=== PATIENT | female | born 1970 | race Caucasian/White ===

== ENCOUNTER 2017-06-10 10:59 | Emergency (ER) | payer MEDICAID, SELFPAY ==
[2017-06-10 13:05] VITALS: BP 98/59; PULSE 74; RESP 20; TEMP 36.9; O2SAT 95; BMI 47.8
--- NOTE | 2017-06-10 13:24 | XR_ITS ---
XR ribs RT min 3V w CXR1V Ordering Physician: Payal Peters Patient Age: 46 years: Female HISTORY: ITS.REASON: fell 2 days ago, right lower rib/flank pain right-sided pain TECHNIQUE: Oblique views right ribs along with AP chest above and below diaphragm. COMPARISON : FINDINGS Right ribs are intact with no fracture evident. No acute findings. Lungs well expanded and clear. Old fusion of lower T-spine T10-T9. Clip right upper quadrant from cholecystectomy. The included images a right shoulder reveal no acute findings here. Small dystrophic calcification inferior to the glenoid noted IMPRESSION: Right ribs intact no fracture.
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
[2017-06-10 15:32] VITALS: BP 136/70; PULSE 67; RESP 20; TEMP 36.6; O2SAT 99
== END 2017-06-10 15:33 | disposition home or self-care (01) ==
PROVIDERS: Emergency Provider Nurse Practitioner Family; Family Provider Family Medicine; PCP Family Medicine
DX: S20.211A Contusion of right front wall of thorax, initial encounter (principal); M54.2 Cervicalgia; W01.0XXA Fall on same level from slipping, tripping and stumbling without subsequent striking against object, initial encounter; Y93.89 Activity, other specified; Y92.9 Unspecified place or not applicable; I49.9 Cardiac arrhythmia, unspecified; I10 Essential (primary) hypertension; F17.210 Nicotine dependence, cigarettes, uncomplicated; Z79.890 Hormone replacement therapy; Z79.891 Long term (current) use of opiate analgesic; Z79.899 Other long term (current) drug therapy
CPT/HCPCS: 71101; 99202

== ENCOUNTER → 2017-07-01 13:58 | Outpatient (POV) | payer MEDICAID, SELFPAY ==
[2017-07-01 14:58] VITALS: BP 134/85; PULSE 84; RESP 22; O2SAT 96; BMI 49.4
--- NOTE | 2017-07-01 15:10 | P.CONS_ITS ---
[facility] Pain Management SOAP Note Subjective:: This patient pleasant 46-year-old white female who we are treating for degenerative disc disease of lumbar spine with lumbar radiculopathy symptoms and postlaminectomy syndrome of the thoracic spine. She is doing well on [place] 5 mg 3 times a day. She is also increase her gabapentin to 600 mg 3 times a day. She would like to further increases. We will increase her gabapentin to 800 mg 3 times a day and continue her [place]. Pain medication decreases her pain by at least 75%. She is also more functional. She has had no side effects. We will refill her medication give HER-2 months worth of prescriptions. Kas[place] and urine drug screen are all appropriate. [facility] # [id number]. Objective:: Alert and oriented ?3 in no acute distress. Decreased flexion and extension lumbar spine. Motor strength of the upper and lower extremities is 5/5. There is no sensory deficit. Patient does have a normal gait. Assessment:: Degenerative disc disease of lumbar spine with lumbar radiculopathy symptoms. Post laminectomy syndrome of the thoracic spine. Plan:: We will refill her [place] 5 mg 1 tablet 3 times a day. We will give HER-2 months worth of prescriptions. We will increase her gabapentin to 800 mg 3 times a day.
== END ==
PROVIDERS: Family Provider Family Medicine; PCP Family Medicine; Visit Provider Anesthesiology
DX: M54.16 Radiculopathy, lumbar region (principal)
CPT/HCPCS: 99212

== ENCOUNTER → 2017-08-08 09:18 | Outpatient (POV) | payer MEDICAID, SELFPAY | PROVIDERS: Visit Provider Dentist | DX: Z00.00 Encounter for general adult medical examination without abnormal findings (principal) ==

== ENCOUNTER → 2017-09-16 09:57 | Outpatient (POV) | payer MEDICAID, SELFPAY ==
[2017-09-16 10:36] VITALS: BP 153/91; PULSE 75; RESP 18; O2SAT 99; BMI 49.6
--- NOTE | 2017-09-16 12:50 | HMH.PAINSOAP ---
[facility] Pain Management SOAP Note Subjective:: Patient is a pleasant 47-year-old white female who presents today for follow-up. Patient being medically managed with [place] 5 mg 1 p.o. 3 times daily. Patient is being treated for pain secondary to degenerative disc disease of lumbar spine with lumbar radiculopathy symptoms and postlaminectomy syndrome the thoracic spine. Of late she has had a lot of right SI joint pain. Patient states she would like to have an injection in her right SI to see if this would be beneficial. She states her pain medication does decrease her pain up to 75%. Patient states it makes her more functional. Patient denies any side effects. Patient Kaspar #[id number] reviewed and appropriate. Patient's urine drug screen has been appropriate in the past. Patient rates her pain at 8 out of 10 today primarily over her right SI joint. ROS General: no recent weight change, no fever, no sleep disturbances Respiratory: no cough, no shortness of air, no recurring pulmonary infections Cardiovascular/Peripheral Vascular: No chest pain, No palpitations, no edema, no shortness of breath. Gastrointestinal: no incontinence, normal bowel movements reported Genitourinary: no incontinence Musculoskeletal: Right SI joint pain Psychiatric: normal mood/ affect, Neurological: [denies weakness in extremities], [denies balance issues] Objective:: Physical Exam General: Alert and oriented x3, no acute distress, pleasant and cooperative, [on room air] Lungs: Resps E/U, Symmetrical chest expansion, Eyes: PERRL Musculoskeletal: Flexion and extension of lumbar spine somewhat guarded secondary to pain, deep tendon reflexes normal, strength in upper and lower extremities [5/5], slightly antalgic gait noted, positive Irina's test on the right side, extreme point tenderness over right SI joint Neurological: speech clear, building contractor equal, no gross sensory deficits Assessment:: Sacroiliitis, degenerative disc disease of the lumbar spine with lumbar radiculopathy symptoms, postlaminectomy syndrome of the thoracic spine Plan:: We will refill the patient's Perry 5 mg 1 p.o. 3 times daily we will give HER-2 months worth of prescriptions. She can apple picker her third month in the interim. Patient is also on gabapentin 800 mg 1 p.o. 3 times daily. We will give HER-2 months worth of prescriptions for this as well. Dr. Zelaya has reviewed this chart and agrees with this plan of care. We will also ask insurance approval for right SI joint injection. I believe that this would be beneficial given the patient symptomology. Patient has tried and failed stretching therapy, anti-inflammatories, medications. I will follow-up with this patient after her injection. Patient is not on any anticoagulation therapy. Patient has been prescribed a controlled substance after being counseled on the medication, medication safety, and possible side effects. IRASEMA report has been obtained and reviewed prior to prescription and found to be appropriate. Opioid contract was reviewed and signed by the patient, and that they have agreed to all of the terms set forth by our compliance program. This note was dictated using voice recognition software and may contain errors or omissions
--- NOTE | 2017-09-16 12:53 | P.CONS_ITS ---
[facility] Pain Management SOAP Note Subjective:: Patient is a pleasant 47-year-old white female who presents today for follow- up. Patient being medically managed with [place] 5 mg 1 p.o. 3 times daily. Patient is being treated for pain secondary to degenerative disc disease of lumbar spine with lumbar radiculopathy symptoms and postlaminectomy syndrome the thoracic spine. Of late she has had a lot of right SI joint pain. Patient states she would like to have an injection in her right SI to see if this would be beneficial. She states her pain medication does decrease her pain up to 75% . Patient states it makes her more functional. Patient denies any side effects. Patient [place] #[id number] reviewed and appropriate. Patient's urine drug screen has been appropriate in the past. Patient rates her pain at 8 out of 10 today primarily over her right SI joint. ROS General: no recent weight change, no fever, no sleep disturbances Respiratory: no cough, no shortness of air, no recurring pulmonary infections Cardiovascular/Peripheral Vascular: No chest pain, No palpitations, no edema, no shortness of breath. Gastrointestinal: no incontinence, normal bowel movements reported Genitourinary: no incontinence Musculoskeletal: Right SI joint pain Psychiatric: normal mood/ affect, Neurological: [denies weakness in extremities], [denies balance issues] Objective:: Physical Exam General: Alert and oriented x3, no acute distress, pleasant and cooperative, [ on room air] Lungs: Resps E/U, Symmetrical chest expansion, Eyes: PERRL Musculoskeletal: Flexion and extension of lumbar spine somewhat guarded secondary to pain, deep tendon reflexes normal, strength in upper and lower extremities [5/5], slightly antalgic gait noted, positive Irina's test on the right side, extreme point tenderness over right SI joint Neurological: speech clear, french weaver equal, no gross sensory deficits Assessment:: Sacroiliitis, degenerative disc disease of the lumbar spine with lumbar radiculopathy symptoms, postlaminectomy syndrome of the thoracic spine Plan:: We will refill the patient's Eve[place] 5 mg 1 p.o. 3 times daily we will give HER-2 months worth of prescriptions. She can waste picker her third month in the interim. Patient is also on gabapentin 800 mg 1 p.o. 3 times daily. We will give HER- 2 months worth of prescriptions for this as well. Dr. Zelaya has reviewed this chart and agrees with this plan of care. We will also ask insurance approval for right SI joint injection. I believe that this would be beneficial given the patient symptomology. Patient has tried and failed stretching therapy, anti -inflammatories, medications. I will follow-up with this patient after her injection. Patient is not on any anticoagulation therapy. Patient has been prescribed a controlled substance after being counseled on the medication, medication safety, and possible side effects. IRASEMA report has been obtained and reviewed prior to prescription and found to be appropriate. Opioid contract was reviewed and signed by the patient, and that they have agreed to all of the terms set forth by our compliance program. This note was dictated using voice recognition software and may contain errors or omissions
[2017-09-16 13:32] LABS: Amphetamine/Metha Screen,Urine Negative ng/mL (<1000); Barbiturates Screen,Urine Negative ng/mL (<200); Benzodiazepines Screen,Urine Negative ng/mL (200); Cannabinoid Screen,Urine Negative ng/mL (<50); Cocaine Screen,Urine Negative ng/g (<300); Methadone Screen,Urine Negative ng/mL (<300); Opiate Screen,Urine Positive ng/mL (<300); Phencyclidine Screen,Urine Negative ng/mL (<25)
[2017-09-26 20:16] LABS: Codeine Negative (Cutoff=100); Hydrocodone Positive (.); Hydromorphone Positive (.); Morphine Negative (Cutoff=100)
[2017-09-27 13:31] LABS: Opiates Positive (.)
== END ==
PROVIDERS: Family Provider Family Medicine; Visit Provider Clinical Nurse Specialist Family Health
DX: M54.16 Radiculopathy, lumbar region (principal); M46.1 Sacroiliitis, not elsewhere classified; Z79.891 Long term (current) use of opiate analgesic
CPT/HCPCS: 80305; 80361; 80365; 99212; G0480

== ENCOUNTER 2017-09-24 14:35 | Day surgery (SDC) | payer MEDICAID, SELFPAY ==
[2017-09-24 15:11] VITALS: BP 130/68; PULSE 82; RESP 18; TEMP 36.8; O2SAT 94; BMI 47.4
[2017-09-24 15:44] VITALS: BP 150/101; PULSE 77; RESP 18; O2SAT 98
--- NOTE | 2017-09-24 15:52 | HMH.PMPROC ---
- Procedure Date: 09/24/17 Time: 15:55 Anesthesiologist:: Pam Lovelace APRN Complications:: None Pre-procedure Diagnosis:: Right sacroiliitis Post-procedure Diagnosis:: Same Indications for Procedure:: Patient is a pleasant 47-year-old white female who presents today for an SI joint injection. she has had a lot of right SI joint pain. Patient states she would like to have an injection in her right SI to see if this would be beneficial. Patient rates her pain at 7 out of 10 today primarily over her right SI joint. Physical Exam General: Alert and oriented x3, no acute distress, pleasant and cooperative, [on room air] Lungs: Resps E/U, Symmetrical chest expansion, Eyes: PERRL Musculoskeletal: Flexion and extension of lumbar spine somewhat guarded secondary to pain, deep tendon reflexes normal, strength in upper and lower extremities [5/5], [abnormal gait noted], positive Irina's test on the right side, extreme tenderness over right SI joint Neurological: speech clear, felled seam operator equal, no gross sensory deficits Procedure Details:: Informed consent was obtained and the risks and benefits of the procedure were explained to the patient. Patient was taken to the procedure room. Patient was placed prone on the procedure table. The [right] hip was prepped using ChloraPrep as a cleansing solution. The skin and subcutaneous tissues were anesthetized using lidocaine. Using fluoroscopic guidance I placed a 22-gauge spinal needle into the inferior aspect of the [right] SI joint. After this I injected 5 mL bupivacaine 0.25% and Depo-Medrol 40 mg into the right SI joint. The patient tolerated the procedure well with no complication. Plan and Disposition:: We will follow-up with this patient in 2 weeks and reassess her symptoms at that time. Patient's been instructed to call the office if she has any issues prior to her next appointment. This note was dictated using voice recognition software and may contain errors or omissions
[2017-09-24 15:54] VITALS: BP 150/85; PULSE 85; RESP 18; O2SAT 98
--- NOTE | 2017-09-24 15:57 | P.PCN_ITS ---
- Procedure Date: 09/24/17 Time: 15:55 Anesthesiologist:: Pam Lovelace APRN Complications:: None Pre-procedure Diagnosis:: Right sacroiliitis Post-procedure Diagnosis:: Same Indications for Procedure:: Patient is a pleasant 47-year-old white female who presents today for an SI joint injection. she has had a lot of right SI joint pain. Patient states she would like to have an injection in her right SI to see if this would be beneficial. Patient rates her pain at 7 out of 10 today primarily over her right SI joint. Physical Exam General: Alert and oriented x3, no acute distress, pleasant and cooperative, [ on room air] Lungs: Resps E/U, Symmetrical chest expansion, Eyes: PERRL Musculoskeletal: Flexion and extension of lumbar spine somewhat guarded secondary to pain, deep tendon reflexes normal, strength in upper and lower extremities [5/5], [abnormal gait noted], positive Irina's test on the right side, extreme tenderness over right SI joint Neurological: speech clear, sweetbread trimmer equal, no gross sensory deficits Procedure Details:: Informed consent was obtained and the risks and benefits of the procedure were explained to the patient. Patient was taken to the procedure room. Patient was placed prone on the procedure table. The [right] hip was prepped using ChloraPrep as a cleansing solution. The skin and subcutaneous tissues were anesthetized using lidocaine. Using fluoroscopic guidance I placed a 22-gauge spinal needle into the inferior aspect of the [right] SI joint. After this I injected 5 mL bupivacaine 0.25% and Depo-Medrol 40 mg into the right SI joint. The patient tolerated the procedure well with no complication. Plan and Disposition:: We will follow-up with this patient in 2 weeks and reassess her symptoms at that time. Patient's been instructed to call the office if she has any issues prior to her next appointment. This note was dictated using voice recognition software and may contain errors or omissions
[2017-09-24 16:03] VITALS: BP 108/70; PULSE 81; RESP 18; O2SAT 98
== END 2017-09-24 16:06 | disposition home or self-care (01) ==
LOC: SC.PAINP 14:37
PROVIDERS: Family Provider Family Medicine; PCP Family Medicine; Visit Provider Clinical Nurse Specialist Family Health
DX: M46.1 Sacroiliitis, not elsewhere classified (principal)
CPT/HCPCS: 27096; G0260; J1040

== ENCOUNTER → 2017-10-07 08:57 | Outpatient (POV) | payer MEDICAID, SELFPAY ==
[2017-10-07 09:17] VITALS: BP 135/88; PULSE 93; RESP 18; TEMP 36.6; O2SAT 95; BMI 39.5
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
== END ==
PROVIDERS: Family Provider Family Medicine; PCP Family Medicine; Visit Provider Clinical Nurse Specialist Family Health
DX: M46.1 Sacroiliitis, not elsewhere classified (principal)
CPT/HCPCS: 99212

== ENCOUNTER → 2017-10-15 10:18 | Outpatient (POV) | payer MEDICAID, SELFPAY ==
[2017-10-15 12:39] VITALS: BP 125/78; PULSE 71; RESP 18; O2SAT 97; BMI 47.8
--- NOTE | 2017-10-15 13:35 | HMH.PAINSOAP ---
[facility] Pain Management SOAP Note Subjective:: Patient is a pleasant 47-year-old white female who presents today for follow-up. Patient has gotten SI joint injections from us along with [place] 5 mg 1 p.o. 3 times daily and gabapentin 800 mg 1 p.o. 3 times daily. Patient has been doing extremely well however lately she has had a increase in her pain. Patient states this is a different kind of pain in her low back with radiation into her right leg. Patient does not have any MRIs or imaging of her low back. We will order some imaging today. She rates the pain a 9 out of 10 today. ROS General: no recent weight change, no fever, no sleep disturbances Respiratory: no cough, no shortness of air, no recurring pulmonary infections Cardiovascular/Peripheral Vascular: No chest pain, No palpitations, no edema, no shortness of breath. Gastrointestinal: no incontinence, normal bowel movements reported Genitourinary: no incontinence Musculoskeletal: Back pain, right leg pain Psychiatric: normal mood/ affect Neurological: [denies weakness in extremities], [denies balance issues] Objective:: Physical Exam General: Alert and oriented x3, no acute distress, pleasant and cooperative, [on room air] Lungs: Resps E/U, Symmetrical chest expansion, Eyes: PERRL Musculoskeletal: Flexion and extension of the lumbar spine somewhat guarded secondary to pain, deep tendon reflexes normal, strength in upper and lower extremities [5/5], slightly antalgic gait noted, positive straight leg raise test on the right side at 30? Neurological: speech clear, fireboat operator equal, no gross sensory deficits Assessment:: Sacroiliitis, degenerative disc disease of the lumbar spine with lumbar radiculopathy Plan:: Patient states she is not on any anti-inflammatories we will begin her on ibuprofen therapy today. Patient is to continue with her [place] 5 mg 1 p.o. 3 times daily and her gabapentin. We will order an MRI of her back to discern pathology of this new pain. I will follow-up the patient after her MRI. This note was dictated using voice recognition software and may contain errors or omissions
--- NOTE | 2017-10-15 13:38 | P.CONS_ITS ---
[facility] Pain Management SOAP Note Subjective:: Patient is a pleasant 47-year-old white female who presents today for follow- up. Patient has gotten SI joint injections from us along with [place] 5 mg 1 p.o. 3 times daily and gabapentin 800 mg 1 p.o. 3 times daily. Patient has been doing extremely well however lately she has had a increase in her pain. Patient states this is a different kind of pain in her low back with radiation into her right leg. Patient does not have any MRIs or imaging of her low back. We will order some imaging today. She rates the pain a 9 out of 10 today. ROS General: no recent weight change, no fever, no sleep disturbances Respiratory: no cough, no shortness of air, no recurring pulmonary infections Cardiovascular/Peripheral Vascular: No chest pain, No palpitations, no edema, no shortness of breath. Gastrointestinal: no incontinence, normal bowel movements reported Genitourinary: no incontinence Musculoskeletal: Back pain, right leg pain Psychiatric: normal mood/ affect Neurological: [denies weakness in extremities], [denies balance issues] Objective:: Physical Exam General: Alert and oriented x3, no acute distress, pleasant and cooperative, [ on room air] Lungs: Resps E/U, Symmetrical chest expansion, Eyes: PERRL Musculoskeletal: Flexion and extension of the lumbar spine somewhat guarded secondary to pain, deep tendon reflexes normal, strength in upper and lower extremities [5/5], slightly antalgic gait noted, positive straight leg raise test on the right side at 30? Neurological: speech clear, medical videographer equal, no gross sensory deficits Assessment:: Sacroiliitis, degenerative disc disease of the lumbar spine with lumbar radiculopathy Plan:: Patient states she is not on any anti-inflammatories we will begin her on ibuprofen therapy today. Patient is to continue with her [place] 5 mg 1 p.o. 3 times daily and her gabapentin. We will order an MRI of her back to discern pathology of this new pain. I will follow-up the patient after her MRI. This note was dictated using voice recognition software and may contain errors or omissions
== END ==
PROVIDERS: Family Provider Family Medicine; PCP Family Medicine; Visit Provider Clinical Nurse Specialist Family Health
DX: M46.1 Sacroiliitis, not elsewhere classified (principal)
CPT/HCPCS: 99212

== ENCOUNTER → 2017-10-29 14:00 | Outpatient (CLI) | payer MEDICAID, SELFPAY ==
--- NOTE | 2017-10-29 14:01 | MR_ITS ---
MR BACK PAIN ORDERING PHYSICIAN: Pam Lovelace PATIENT AGE: 47 years Comparison: Plain films lumbar spine 12/22/2015 TECHNIQUE: Standard multiplanar multiecho sequences are performed without contrast. 3-D MIP and myelographic images are also rendered and reviewed FINDINGS: There is normal curvature and alignment. The marrow signal is normal in all lumbar vertebrae. The spinal canal is normal size throughout. There is decreased signal in each lumbar disc consistent with desiccation. However the L1-2 and L2-3 disc appear grossly normal. There is a mild diffuse broad-based disc bulge L3-4 which combined with hypertrophic facet changes results in moderate bilateral neural foraminal narrowing. There is a extradural defect at this level on the myelogram sequence. The L4-5 disc is normal. There is a small central disc protrusion L5-S1. There are moderate hypertrophic facet changes at both L4-5 and L5-S1 levels. There is a small hard disc protrusion at the T12-L1 level The myelogram sequence is normal other than the C4 level are ready described. IMPRESSION: 1. Broad-based small disc protrusion L3-4 combined with hypertrophic facet changes results in mild neural foraminal narrowing bilaterally. 2. Mild to moderate hypertrophic facet changes at L 45 and L5-S1 3. Small broad-based hard disc protrusion T12-L1
== END ==
PROVIDERS: Family Provider Family Medicine; PCP Family Medicine; Visit Provider Clinical Nurse Specialist Family Health
DX: M54.5 Low back pain (principal)
CPT/HCPCS: 72148; 76376

== ENCOUNTER → 2017-11-04 15:01 | Outpatient (POV) | payer MEDICAID, SELFPAY ==
[2017-11-04 15:21] VITALS: BP 97/63; PULSE 77; RESP 18; O2SAT 98; BMI 46.2
--- NOTE | 2017-11-04 15:40 | HMH.PAINSOAP ---
[facility] Pain Management SOAP Note Subjective:: Patient is a pleasant 47-year-old white female who presents today for follow-up after recent MRI. Patient does have facet arthropathy along with disc protrusions in the lumbar spine. Patient has had epidural injections and SI joint injections without much relief. Patient and I discussed neuromodulation along with potential medial branch block injections. Patient rates her pain an 8 out of 10 today. Patient is also being medically managed with Casar 5 mg 1 p.o. O 3 times daily. Patient's IRASEMA #[id number] reviewed and appropriate. Patient denies any side effects to the medication and states that it helps up to 70%. States most of her pain is in her lower back and is worse when she twists. ROS General: no recent weight change, no fever, no sleep disturbances Respiratory: no cough, no shortness of air, no recurring pulmonary infections Cardiovascular/Peripheral Vascular: No chest pain, No palpitations, no edema, no shortness of breath. Gastrointestinal: no incontinence, normal bowel movements reported Genitourinary: no incontinence Musculoskeletal: Back pain Psychiatric: normal mood/ affect Neurological: [denies weakness in extremities], [denies balance issues] Objective:: Physical Exam General: Alert and oriented x3, no acute distress, pleasant and cooperative, [on room air] Lungs: Resps E/U, Symmetrical chest expansion, Eyes: PERRL Musculoskeletal: Flexion and extension of lumbar spine somewhat guarded secondary to pain, deep tendon reflexes normal, strength in upper and lower extremities [5/5], [abnormal gait noted], facet loading positive lumbar spine Neurological: speech clear, youth care specialist equal, no gross sensory deficits Assessment:: Degenerative disc disease of the lumbar spine, facet arthropathy Plan:: We will schedule medial branch block/facet joint injections at L3-L4 L4-L5 L5-S1 bilaterally. We will see if this helps with the patient's pain. Patient's tried stretching, physical therapy, medications and anti-inflammatories. Patient is not on any anticoagulation therapy. Follow-up with the patient after her injections. Patient and I did talk about neuro stimulation and I gave her information in regards to this. She is continuing her home stretching regimen at home. We will also refill her Casar 5 mg 1 p.o. 3 times daily. We will give HER-2 months worth of medication. We will follow-up with her after her injections. Patient's Irasema and urine drug screen have been reviewed. Dr. Zelaay has reviewed this chart and agrees with this plan of care. Patient has been prescribed a controlled substance after being counseled on the medication, medication safety, and possible side effects. IRASEMA report has been obtained and reviewed prior to prescription and found to be appropriate. Opioid contract was reviewed and signed by the patient, and that they have agreed to all of the terms set forth by our compliance program. This note was dictated using voice recognition software and may contain errors or omissions
--- NOTE | 2017-11-04 15:45 | P.CONS_ITS ---
[facility] Pain Management SOAP Note Subjective:: Patient is a pleasant 47-year-old white female who presents today for follow-up after recent MRI. Patient does have facet arthropathy along with disc protrusions in the lumbar spine. Patient has had epidural injections and SI joint injections without much relief. Patient and I discussed neuromodulation along with potential medial branch block injections. Patient rates her pain an 8 out of 10 today. Patient is also being medically managed with [place] 5 mg 1 p.o. O 3 times daily. Patient's IRASEMA #[id number] reviewed and appropriate. Patient denies any side effects to the medication and states that it helps up to 70%. States most of her pain is in her lower back and is worse when she twists. ROS General: no recent weight change, no fever, no sleep disturbances Respiratory: no cough, no shortness of air, no recurring pulmonary infections Cardiovascular/Peripheral Vascular: No chest pain, No palpitations, no edema, no shortness of breath. Gastrointestinal: no incontinence, normal bowel movements reported Genitourinary: no incontinence Musculoskeletal: Back pain Psychiatric: normal mood/ affect Neurological: [denies weakness in extremities], [denies balance issues] Objective:: Physical Exam General: Alert and oriented x3, no acute distress, pleasant and cooperative, [ on room air] Lungs: Resps E/U, Symmetrical chest expansion, Eyes: PERRL Musculoskeletal: Flexion and extension of lumbar spine somewhat guarded secondary to pain, deep tendon reflexes normal, strength in upper and lower extremities [5/5], [abnormal gait noted], facet loading positive lumbar spine Neurological: speech clear, public finance specialist equal, no gross sensory deficits Assessment:: Degenerative disc disease of the lumbar spine, facet arthropathy Plan:: We will schedule medial branch block/facet joint injections at L3-L4 L4-L5 L5- S1 bilaterally. We will see if this helps with the patient's pain. Patient's tried stretching, physical therapy, medications and anti-inflammatories. Patient is not on any anticoagulation therapy. Follow-up with the patient after her injections. Patient and I did talk about neuro stimulation and I gave her information in regards to this. She is continuing her home stretching regimen at home. We will also refill her [place] 5 mg 1 p.o. 3 times daily. We will give HER-2 months worth of medication. We will follow-up with her after her injections. Patient's Irasema and urine drug screen have been reviewed. Dr. Zelaya has reviewed this chart and agrees with this plan of care. Patient has been prescribed a controlled substance after being counseled on the medication, medication safety, and possible side effects. IRASEMA report has been obtained and reviewed prior to prescription and found to be appropriate. Opioid contract was reviewed and signed by the patient, and that they have agreed to all of the terms set forth by our compliance program. This note was dictated using voice recognition software and may contain errors or omissions
== END ==
PROVIDERS: Family Provider Family Medicine; PCP Family Medicine; Visit Provider Clinical Nurse Specialist Family Health
DX: M51.36 Other intervertebral disc degeneration, lumbar region (principal)
CPT/HCPCS: 99212

== ENCOUNTER → 2017-12-03 09:28 | Outpatient (POV) | payer MEDICAID, SELFPAY ==
[2017-12-03 09:41] VITALS: BP 107/56; PULSE 84; RESP 18; O2SAT 98; BMI 46.2
--- NOTE | 2017-12-03 09:58 | HMH.PAINSOAP ---
[facility] Pain Management SOAP Note Subjective:: Patient is a pleasant 47-year-old white female who presents today for follow-up. Patient is scheduled for Saturday medial branch blocks. Patient still having right knee pain after replacement. Patient rates her pain today a 6 out of 10. Patient is having axial back pain. Patient wanted to discuss her medial branch blocks. She denied talked about neuro stimulation in the past. ROS General: no recent weight change, no fever, no sleep disturbances Respiratory: no cough, no shortness of air, no recurring pulmonary infections Cardiovascular/Peripheral Vascular: No chest pain, No palpitations, no edema, no shortness of breath. Gastrointestinal: no incontinence, normal bowel movements reported Genitourinary: no incontinence Musculoskeletal: Back pain and knee pain Psychiatric: normal mood/ affect Neurological: [denies weakness in extremities], [denies balance issues] Objective:: Physical Exam General: Alert and oriented x3, no acute distress, morbidly obese, pleasant and cooperative, [on room air] Lungs: Resps E/U, Symmetrical chest expansion, Eyes: PERRL Musculoskeletal: Flexion and extension of lumbar spine somewhat guarded secondary to pain, deep tendon reflexes normal, strength in upper and lower extremities [5/5], [abnormal gait noted] positive facet loading bilateral lumbar spine Neurological: speech clear, hearing aid technician equal, no gross sensory deficits Assessment:: Degenerative disc disease lumbar spine with facet arthropathy Plan:: Patient will come for her injection at L3-L4 L4-L5 L5 and bilaterally on Saturday. I believe that this will be beneficial for the patient's pain I will follow-up with the patient after her injection and see how she is doing. This note was dictated using voice recognition software and may contain errors or omissions
--- NOTE | 2017-12-03 10:01 | P.CONS_ITS ---
[facility] Pain Management SOAP Note Subjective:: Patient is a pleasant 47-year-old white female who presents today for follow- up. Patient is scheduled for Saturday medial branch blocks. Patient still having right knee pain after replacement. Patient rates her pain today a 6 out of 10. Patient is having axial back pain. Patient wanted to discuss her medial branch blocks. She denied talked about neuro stimulation in the past. ROS General: no recent weight change, no fever, no sleep disturbances Respiratory: no cough, no shortness of air, no recurring pulmonary infections Cardiovascular/Peripheral Vascular: No chest pain, No palpitations, no edema, no shortness of breath. Gastrointestinal: no incontinence, normal bowel movements reported Genitourinary: no incontinence Musculoskeletal: Back pain and knee pain Psychiatric: normal mood/ affect Neurological: [denies weakness in extremities], [denies balance issues] Objective:: Physical Exam General: Alert and oriented x3, no acute distress, morbidly obese, pleasant and cooperative, [on room air] Lungs: Resps E/U, Symmetrical chest expansion, Eyes: PERRL Musculoskeletal: Flexion and extension of lumbar spine somewhat guarded secondary to pain, deep tendon reflexes normal, strength in upper and lower extremities [5/5], [abnormal gait noted] positive facet loading bilateral lumbar spine Neurological: speech clear, liner helper equal, no gross sensory deficits Assessment:: Degenerative disc disease lumbar spine with facet arthropathy Plan:: Patient will come for her injection at L3-L4 L4-L5 L5 and bilaterally on Saturday. I believe that this will be beneficial for the patient's pain I will follow-up with the patient after her injection and see how she is doing. This note was dictated using voice recognition software and may contain errors or omissions
== END ==
PROVIDERS: Family Provider Family Medicine; PCP Family Medicine; Visit Provider Clinical Nurse Specialist Family Health
DX: M51.36 Other intervertebral disc degeneration, lumbar region (principal); M54.06 Panniculitis affecting regions of neck and back, lumbar region
CPT/HCPCS: 99213

== ENCOUNTER → 2017-12-19 12:15 | Outpatient (CLI) | payer MEDICAID, SELFPAY ==
[2017-12-19 13:27] LABS: Basophils % 0.4 % (0.1-2.0); Eosinophils # 0.6 K/mm3 (0.0-0.4); Eosinophils % 5.6 % (0.1-12.0); Hematocrit 39.8 % (37.0-47.0); Hemoglobin 13.1 g/dL (12.2-16.2); Lymphocytes # 2.1 K/mm3 (0.7-4.5); Lymphocytes % 19.6 K/mm3 (10-50); Mean Corpuscular HGB Conc 32.9 g/dL (31.8-35.4); Mean Corpuscular Hemoglobin 30.8 pg (27.0-31.2); Mean Corpuscular Volume 93.6 fl (81-99); Mean Platelet Volume 8.2 fl (7.4-10.4); Monocytes # 0.6 K/mm3 (0.1-1.0); Monocytes % 5.6 % (1.7-9.3); Neutrophils # 7.3 K/mm3 (1.8-7.8); Neutrophils % 68.8 % (37.0-80.0); Platelet Count 281 K/mm3 (142-424); Red Blood Count 4.25 M/mm3 (4.20-5.40); Red Cell Distribution Width 12.7 % (11.5-17.5); White Blood Count 10.6 K/mm3 (4.8-10.8)
[2017-12-19 13:44] LABS: C-Reactive Protein 3.2 mg/L (0.0-0.9)
[2017-12-19 14:17] LABS: Erythrocyte Sedimentation Rate 52 mm/hr (0-20)
== END ==
PROVIDERS: PCP Family Medicine; Visit Provider Orthopaedic Surgery
DX: M25.561 Pain in right knee (principal)
CPT/HCPCS: 36415; 85025; 85651; 86140

== ENCOUNTER → 2017-12-30 14:22 | Outpatient (POV) | payer MEDICAID, SELFPAY ==
[2017-12-30 14:33] VITALS: BP 153/90; PULSE 78; RESP 18; O2SAT 96; BMI 35.9
--- NOTE | 2017-12-30 14:56 | HMH.PAINSOAP ---
[facility] Pain Management SOAP Note Subjective:: Patient is a pleasant 47-year-old white female who presents today after lumbar medial branch block. Patient did not get any relief from this injection. Patient states she is very frustrated at this point. Patient states she has had to stop working. Patient is currently on [place] 5 mg 1 p.o. 3 times daily. She states she does not see much difference with this. Patient and I had a long discussion about physical therapy along with increasing her medication. Patient Kaspar #[id number] reviewed and appropriate. Patient's urine drug screen has been appropriate in the past. She rates the pain an 8 out of 10. ROS General: no recent weight change, no fever, no sleep disturbances Respiratory: no cough, no shortness of air, no recurring pulmonary infections Cardiovascular/Peripheral Vascular: No chest pain, No palpitations, no edema, no shortness of breath. Gastrointestinal: no incontinence, normal bowel movements reported Genitourinary: no incontinence Musculoskeletal: Back pain, leg pain Psychiatric: normal mood/ affect Neurological: [denies weakness in extremities], [denies balance issues] Objective:: Physical Exam General: Alert and oriented x3, no acute distress, pleasant and cooperative, [on room air] Lungs: Resps E/U, Symmetrical chest expansion, Eyes: PERRL Musculoskeletal: Flexion and extension of lumbar spine somewhat guarded secondary to pain, deep tendon reflexes normal, strength in upper and lower extremities [5/5], [abnormal gait noted] Neurological: speech clear, pump house engineer equal, no gross sensory deficits Assessment:: Degenerative disc disease lumbar spine with facet arthropathy throughout lumbar spine and lumbar spondylosis Plan:: We will change her to Percocet 10 mg 1 p.o. 3 times daily. We will send her to physical therapy. Patient is to continue this. I will follow-up with her in 1 month and we will reassess her symptoms at that time. Patient's been instructed to call the office if she has any issues prior to next appointment. Patient has been prescribed a controlled substance after being counseled on the medication, medication safety, and possible side effects. IRASEMA report has been obtained and reviewed prior to prescription and found to be appropriate. Opioid contract was reviewed and signed by the patient, and that they have agreed to all of the terms set forth by our compliance program. This note was dictated using voice recognition software and may contain errors or omissions
--- NOTE | 2017-12-30 14:59 | P.CONS_ITS ---
[facility] Pain Management SOAP Note Subjective:: Patient is a pleasant 47-year-old white female who presents today after lumbar medial branch block. Patient did not get any relief from this injection. Patient states she is very frustrated at this point. Patient states she has had to stop working. Patient is currently on [place] 5 mg 1 p.o. 3 times daily. She states she does not see much difference with this. Patient and I had a long discussion about physical therapy along with increasing her medication. Patient Kaspar #[id number] reviewed and appropriate. Patient's urine drug screen has been appropriate in the past. She rates the pain an 8 out of 10. ROS General: no recent weight change, no fever, no sleep disturbances Respiratory: no cough, no shortness of air, no recurring pulmonary infections Cardiovascular/Peripheral Vascular: No chest pain, No palpitations, no edema, no shortness of breath. Gastrointestinal: no incontinence, normal bowel movements reported Genitourinary: no incontinence Musculoskeletal: Back pain, leg pain Psychiatric: normal mood/ affect Neurological: [denies weakness in extremities], [denies balance issues] Objective:: Physical Exam General: Alert and oriented x3, no acute distress, pleasant and cooperative, [on room air] Lungs: Resps E/U, Symmetrical chest expansion, Eyes: PERRL Musculoskeletal: Flexion and extension of lumbar spine somewhat guarded secondary to pain, deep tendon reflexes normal, strength in upper and lower extremities [5/5], [abnormal gait noted] Neurological: speech clear, tankroom worker equal, no gross sensory deficits Assessment:: Degenerative disc disease lumbar spine with facet arthropathy throughout lumbar spine and lumbar spondylosis Plan:: We will change her to Percocet 10 mg 1 p.o. 3 times daily. We will send her to physical therapy. Patient is to continue this. I will follow-up with her in 1 month and we will reassess her symptoms at that time. Patient's been instructed to call the office if she has any issues prior to next appointment. Patient has been prescribed a controlled substance after being counseled on the medication, medication safety, and possible side effects. IRASEMA report has been obtained and reviewed prior to prescription and found to be appropriate. Opioid contract was reviewed and signed by the patient, and that they have agreed to all of the terms set forth by our compliance program. This note was dictated using voice recognition software and may contain errors or omissions
== END ==
PROVIDERS: Family Provider Family Medicine; PCP Family Medicine; Visit Provider Clinical Nurse Specialist Family Health
DX: M51.36 Other intervertebral disc degeneration, lumbar region (principal); M54.06 Panniculitis affecting regions of neck and back, lumbar region; M47.896 Other spondylosis, lumbar region
CPT/HCPCS: 99213

== ENCOUNTER → 2018-01-27 11:51 | Outpatient (POV) | payer MEDICAID, SELFPAY ==
[2018-01-27 12:16] VITALS: BP 132/81; PULSE 85; RESP 18; O2SAT 98; BMI 47.5
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
== END ==
PROVIDERS: Family Provider Family Medicine; PCP Family Medicine; Visit Provider Clinical Nurse Specialist Family Health
DX: M51.16 Intervertebral disc disorders with radiculopathy, lumbar region (principal); M12.88 Other specific arthropathies, not elsewhere classified, other specified site
CPT/HCPCS: 99213

== ENCOUNTER 2018-02-06 10:00 | Outpatient (RCR) | payer MEDICAID, SELFPAY ==
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
== END 2018-02-06 10:01 | disposition home or self-care (01) ==
LOC: PT 10:00
PROVIDERS: Family Provider Family Medicine; PCP Family Medicine; Visit Provider Clinical Nurse Specialist Family Health
DX: M54.5 Low back pain (principal)
CPT/HCPCS: 97010; 97014; 97035; 97110; 97163; G0283

== ENCOUNTER 2018-02-06 10:30 | Outpatient (RCR) | payer MEDICAID, SELFPAY ==
--- NOTE | 2018-02-20 11:20 | PC.NURSE ---
authorized refill of Diclofenac to pt's pharmacy, with two additional refills
== END 2018-02-06 10:31 | disposition home or self-care (01) ==
LOC: PT 10:30
PROVIDERS: Visit Provider Orthopaedic Surgery
DX: M25.561 Pain in right knee (principal)
CPT/HCPCS: 97010; 97014; 97033; 97035; 97110; 97163; G0283

== ENCOUNTER → 2018-03-27 15:24 | Outpatient (CLI) | payer MEDICAID, SELFPAY ==
[2018-03-27 20:46] LABS: Amphetamine/Metha Screen,Urine Negative ng/mL (<1000); Barbiturates Screen,Urine Negative ng/mL (<200); Benzodiazepines Screen,Urine Negative ng/mL (<200); Cannabinoid Screen,Urine Negative ng/mL (<50); Cocaine Screen,Urine Negative ng/mL (<300); Methadone Screen,Urine Negative ng/mL (<300); Opiate Screen,Urine Positive ng/mL (<300); Phencyclidine Screen,Urine Negative ng/mL (<25)
[2018-04-03 00:08] LABS: Oxycodone (GC/MS) 2339 ng/mL (Cutoff=100)
[2018-04-04 16:11] LABS: Opiates Negative (Cutoff=100); Oxymorphone (GC/MS) 1862 ng/mL (Cutoff=100)
== END ==
PROVIDERS: Visit Provider Clinical Nurse Specialist Family Health
DX: Z79.899 Other long term (current) drug therapy (principal)
CPT/HCPCS: 80305; 80361; 80365; G0480

== ENCOUNTER → 2018-04-28 10:47 | Outpatient (POV) | payer MEDICAID, SELFPAY ==
[2018-04-28 10:55] VITALS: BP 150/72; PULSE 112; RESP 18; O2SAT 99; BMI 46.1
--- NOTE | 2018-04-28 12:32 | P.CONS_ITS ---
[facility] Pain Management SOAP Note Subjective:: Patient is a pleasant 47-year-old white female who presents today for follow-up and medication refills. Patient is being treated for pain secondary to degenerative disc disease lumbar spine with lumbar radiculopathy and facet arthropathy she rates her pain a 6 out of 10 today. She is currently on Pe rcocet 10 mg 1 p.o. 3 times daily. She denies side effects. Irasema reviewed and appropriate. Patient is continuing physical therapy. ROS General: no recent weight change, no fever, no sleep disturbances Respiratory: no cough, no shortness of air, no recurring pulmonary infections Cardiovascular/Peripheral Vascular: No chest pain, No palpitations, no edema, no shortness of breath. Gastrointestinal: no incontinence, normal bowel movements reported Genitourinary: no incontinence Musculoskeletal: Back pain, leg pain Psychiatric: normal mood/ affect Neurological: [denies weakness in extremities], [denies balance issues] Objective:: Physical Exam General: Alert and oriented x3, no acute distress, pleasant and cooperative, [on room air] Lungs: Resps E/U, Symmetrical chest expansion, Eyes: PERRL Musculoskeletal: Flexion and extension of lumbar spine somewhat guarded secondary to pain, deep tendon reflexes normal, strength in upper and lower extremities [5/5], [abnormal gait noted] Neurological: speech clear, compressed air pile driver operator equal, no gross sensory deficits Assessment:: degenerative disc disease lumbar spine with lumbar radiculopathy Plan:: We will see the patient back in 3 months. We will refill her Percocet 10 mg 1 p.o. 3 times daily and give her 2 months worth she can pick pulling machine tender the third month in the interim. Dr. Zelaya is reviewed this chart and agrees with this plan of care. Patient has been prescribed a controlled substance after being counseled on the medication, medication safety, and possible side effects. IRASEMA report has been obtained and reviewed prior to prescription and found to be appropriate. Opioid contract was reviewed and signed by the patient, and that they have agreed to all of the terms set forth by our compliance program. This note was dictated using voice recognition software and may contain errors or omissions
--- NOTE | 2018-05-21 08:47 | PC.NURSE ---
GABAPENTIN 800MG TID WITH 2 REFILLS FAXED TO [facility] PER PROVIDER ORDER.
== END ==
PROVIDERS: Visit Provider Clinical Nurse Specialist Family Health
DX: M51.16 Intervertebral disc disorders with radiculopathy, lumbar region (principal)
CPT/HCPCS: 99213

== ENCOUNTER 2018-07-03 10:30 | Outpatient (RCR) | payer MEDICAID, SELFPAY | END 2018-07-03 10:35 | disposition home or self-care (01) | LOC: PT 10:30 | PROVIDERS: Visit Provider Orthopaedic Surgery | DX: M62.81 Muscle weakness (generalized) (principal) | CPT/HCPCS: 97010; 97012; 97014; 97110; 97163; 97164; G0283 ==

== ENCOUNTER → 2018-07-21 09:07 | Outpatient (POV) | payer MEDICAID, SELFPAY ==
[2018-07-21 09:25] VITALS: BP 141/88; PULSE 76; RESP 18; O2SAT 98; BMI 48.5
--- NOTE | 2018-07-21 10:04 | P.CONS_ITS ---
[facility] Pain Management SOAP Note Subjective:: Patient is a pleasant 48-year-old white female who presents today for follow-up and medication refills. She is being treated for pain secondary to degenerative disc disease lumbar spine with lumbar radiculopathy. She rates her pain a 4 out of 10. She is currently on Percocet 10 mg 1 p.o. 3 times daily she denies side effects to the medication. Irasema reviewed and appropriate. She is continuing her physical therapy. She is also seeing Dr. Arrington in [place]. Patient overall doing well ROS General: no recent weight change, no fever, no sleep disturbances Respiratory: no cough, no shortness of air, no recurring pulmonary infections Cardiovascular/Peripheral Vascular: No chest pain, No palpitations, no edema, no shortness of breath. Gastrointestinal: no incontinence, normal bowel movements reported Genitourinary: no incontinence Musculoskeletal: Back pain, leg pain Psychiatric: normal mood/ affect Neurological: [denies weakness in extremities], [denies balance issues] Objective:: Physical Exam General: Alert and oriented x3, no acute distress, pleasant and cooperative, [on room air] Lungs: Resps E/U, Symmetrical chest expansion, Eyes: PERRL Musculoskeletal: Flexion and extension of lumbar spine somewhat guarded secondary to pain, deep tendon reflexes normal, strength in upper and lower extremities [5/5], [abnormal gait noted] Neurological: speech clear, clearing house clerk equal, no gross sensory deficits Assessment:: degenerative disc disease lumbar spine with lumbar radiculopathy Plan:: We will refill the patient's Percocet 10 mg 1 p.o. 3 times daily we will give her 1 month prescription. She can pick up worker her prescriptions in the interim. We will see her back in 3 months. She is been instructed to call the office if she has any issues prior to her next appointment. Patient has been prescribed a controlled substance after being counseled on the medication, medication safety, and possible side effects. IRASEMA report has been obtained and reviewed prior to prescription and found to be appropriate. Opioid contract was reviewed and signed by the patient, and that they have agreed to all of the terms set forth by our compliance program. Dr. Zelaya has reviewed this note and agrees with this plan of care. This note was dictated using voice recognition software and may contain errors or omissions
== END ==
PROVIDERS: Visit Provider Clinical Nurse Specialist Family Health
DX: M51.16 Intervertebral disc disorders with radiculopathy, lumbar region (principal)
CPT/HCPCS: 99212

== ENCOUNTER → 2018-09-01 12:08 | Outpatient (CLI) | payer MEDICAID, SELFPAY ==
[2018-09-01 18:04] LABS: Amphetamine/Metha Screen,Urine Negative ng/mL (<1000); Barbiturates Screen,Urine Negative ng/mL (<200); Benzodiazepines Screen,Urine Negative ng/mL (<200); Cannabinoid Screen,Urine Negative ng/mL (<50); Cocaine Screen,Urine Negative ng/mL (<300); Methadone Screen,Urine Negative ng/mL (<300); Opiate Screen,Urine Negative ng/mL (<300); Phencyclidine Screen,Urine Negative ng/mL (<25)
[2018-09-07 10:32] LABS: Oxycodone (GC/MS) 1031 ng/mL (Cutoff=100)
[2018-09-07 17:25] LABS: Opiates Negative (Cutoff=100)
[2018-09-07 17:26] LABS: Oxymorphone (GC/MS) 678 ng/mL (Cutoff=100)
== END ==
PROVIDERS: Visit Provider Clinical Nurse Specialist Family Health
DX: Z79.899 Other long term (current) drug therapy (principal)
CPT/HCPCS: 80305; 80361; 80365; G0480

== ENCOUNTER → 2018-10-13 09:45 | Outpatient (POV) | payer MEDICAID, SELFPAY ==
[2018-10-13 09:55] VITALS: BP 115/68; PULSE 73; RESP 18; O2SAT 98; BMI 42.0
--- NOTE | 2018-10-13 10:15 | HMH.PAINSOAP ---
[facility] Pain Management SOAP Note Subjective:: Patient is a pleasant 48-year-old white female who presents today for follow-up for medication refills. The patient is being treated for back pain secondary to degenerative disc disease lumbar spine with lumbar radiculopathy. She rates her pain a 7 out of 10 today. She is currently on Percocet 10 mg p.o. 3 times daily and gabapentin 800 mg p.o. 3 times daily. She denies any side effects to medications. [facility] #[id number] has been reviewed and is appropriate. Patient did see Dr. Arrington recently who informed her there nothing else that he can do for her. Patient has had multiple injections in the past, and says that she gets very sick with the injections, nausea, dizziness, passing out . She is not interested in any injective therapy. She is also not interested in discussion of an intrathecal pain pump or spinal cord stimulator. Review of Systems General: No recent weight changes, no fever, no sleep disturbances Respiratory: No cough, no shortness of air, no recurring pulmonary infections Cardiovascular/peripheral vascular: No chest pain, no palpitations, no edema, no shortness of breath Gastrointestinal: No new onset incontinence, normal bowel movements reported Genitourinary: No new onset incontinence Musculoskeletal: Back pain Psychiatric: Normal mood/affect Neurological: [Denies weakness in extremities], [denies balance issues] Objective:: Physical exam General: Alert and oriented x3, no acute distress, pleasant and cooperative, [on room air] Lungs: Respirations even and unlabored, symmetrical chest expansion Eyes: PERRL Musculoskeletal: Flexion and extension of lumbar spine somewhat guarded secondary to pain, deep tendon reflexes normal, strength in upper and lower extremities [5/5], [abnormal gait noted] Neurological: Speech clear, data analytics specialist equal, no gross sensory deficit Assessment:: Degenerative disc disease lumbar spine with lumbar radiculopathy Plan:: The patient is not interested in any injective therapy or intrathecal pain pump, stimulator. She would like to continue her oral medication management. We will continue the patient's Percocet 10 mg 1 p.o. 3 times daily and gabapentin 800 mg p.o. 3 times daily. We will give her 2 months worth of medication and she can orange picker machine operator her third prescription in the interim. She has been instructed to call the office if she has any issues prior to her next appointment. Dr. Zelaya has reviewed this note and agrees with this plan of care. This note was dictated using voice recognition software and make contain errors or omissions. Patient has been prescribed a controlled substance after being counseled on the medication, medication safety, and possible side effects. IRASEMA report has been obtained and reviewed prior to prescription and found to be appropriate. Opioid contract was reviewed and signed by the patient, and that they have agreed to all of the terms set forth by our compliance program.
--- NOTE | 2018-10-13 10:18 | P.CONS_ITS ---
[facility] Pain Management SOAP Note Subjective:: Patient is a pleasant 48-year-old white female who presents today for follow-up for medication refills. The patient is being treated for back pain secondary to degenerative disc disease lumbar spine with lumbar radiculopathy. She rates her pain a 7 out of 10 today. She is currently on Percocet 10 mg p.o. 3 times daily and gabapentin 800 mg p.o. 3 times daily. She denies any side effects to medications. [facility] #[id number] has been reviewed and is appropriate. Patient did see Dr. Arrington recently who informed her there nothing else that he can do for her. Patient has had multiple injections in the past, and says that she gets very sick with the injections, nausea, dizziness, passing out . She is not interested in any injective therapy. She is also not interested in discussion of an intrathecal pain pump or spinal cord stimulator. Review of Systems General: No recent weight changes, no fever, no sleep disturbances Respiratory: No cough, no shortness of air, no recurring pulmonary infections Cardiovascular/peripheral vascular: No chest pain, no palpitations, no edema, no shortness of breath Gastrointestinal: No new onset incontinence, normal bowel movements reported Genitourinary: No new onset incontinence Musculoskeletal: Back pain Psychiatric: Normal mood/affect Neurological: [Denies weakness in extremities], [denies balance issues] Objective:: Physical exam General: Alert and oriented x3, no acute distress, pleasant and cooperative, [on room air] Lungs: Respirations even and unlabored, symmetrical chest expansion Eyes: PERRL Musculoskeletal: Flexion and extension of lumbar spine somewhat guarded secondary to pain, deep tendon reflexes normal, strength in upper and lower extremities [5/5], [abnormal gait noted] Neurological: Speech clear, reflector driller and deburrer equal, no gross sensory deficit Assessment:: Degenerative disc disease lumbar spine with lumbar radiculopathy Plan:: The patient is not interested in any injective therapy or intrathecal pain pump, stimulator. She would like to continue her oral medication management. We will continue the patient's Percocet 10 mg 1 p.o. 3 times daily and gabapentin 800 mg p.o. 3 times daily. We will give her 2 months worth of medication and she can cigar packer and picker her third prescription in the interim. She has been instructed to call the office if she has any issues prior to her next appointment. Dr. Zelaya has reviewed this note and agrees with this plan of care. This note was dictated using voice recognition software and make contain errors or omissions. Patient has been prescribed a controlled substance after being counseled on the medication, medication safety, and possible side effects. IRASEMA report has been obtained and reviewed prior to prescription and found to be appropriate. Opioid contract was reviewed and signed by the patient, and that they have agreed to all of the terms set forth by our compliance program.
== END ==
PROVIDERS: Visit Provider Clinical Nurse Specialist Family Health
DX: M51.16 Intervertebral disc disorders with radiculopathy, lumbar region (principal)
CPT/HCPCS: 99212

== ENCOUNTER → 2019-01-26 09:58 | Outpatient (POV) | payer MEDICAID, SELFPAY ==
[2019-01-26 10:30] VITALS: BP 107/70; PULSE 73; RESP 18; O2SAT 98; BMI 44.7
--- NOTE | 2019-01-26 12:54 | HMH.PAINSOAP ---
[facility] Pain Management SOAP Note Subjective:: Patient is a pleasant 48-year-old white female who presents today for follow-up and medication refills. She is being treated for back pain secondary to degenerative disc disease lumbar spine with lumbar radiculopathy she rates her pain today 5 out of 10. She is currently on Percocet 10 mg 1 p.o. 3 times daily and gabapentin 800 mg 1 p.o. 3 times daily. She denies any side effects or medication and states is up to 80% beneficial. Patient's IRASEMA #[id number] reviewed and appropriate urine drug screens have been appropriate in the past. She is not interested in injective therapy at this time she is also uninterested in any intrathecal pain pumps her spinal cord stimulator she has an appointment with the neurosurgeon this week. ROS General: no recent weight change, no fever, no sleep disturbances Respiratory: no cough, no shortness of air, no recurring pulmonary infections Cardiovascular/Peripheral Vascular: No chest pain, No palpitations, no edema, no shortness of breath. Gastrointestinal: no incontinence, normal bowel movements reported Genitourinary: no incontinence Musculoskeletal: Back pain Psychiatric: normal mood/ affect Neurological: [denies weakness in extremities], [denies balance issues] Objective:: Physical Exam General: Alert and oriented x3, no acute distress, pleasant and cooperative, [on room air] Lungs: Resps E/U, Symmetrical chest expansion, Eyes: PERRL Musculoskeletal: Flexion and extension of lumbar spine somewhat guarded secondary to pain, deep tendon reflexes normal, strength in upper and lower extremities [5/5], [abnormal gait noted] Neurological: speech clear, distribution operations supervisor equal, no gross sensory deficits Assessment:: Degenerative disc disease lumbar spine with lumbar radiculopathy Plan:: Patient is not interested in any injective therapy at this time. We will refill the patient's Percocet 10 mg 1 p.o. 3 times daily and gabapentin 800 mg 1 p.o. 3 times daily. We will give her 2 months worth of medication and she can steel pickler her third month in the interim. See her back in 3 months reassess her symptoms at that time she is been instructed to call the office if she has not has any issues prior to her next appointment. Patient has been prescribed a controlled substance after being counseled on the medication, medication safety, and possible side effects. IRASEMA report has been obtained and reviewed prior to prescription and found to be appropriate. Opioid contract was reviewed and signed by the patient, and that they have agreed to all of the terms set forth by our compliance program. Dr. Zelaya has reviewed this note and agrees with this plan of care. This note was dictated using voice recognition software and may contain errors or omissions [facility] History I have reviewed the patient's past medical history: Yes 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: Reports:: Arrhythmia, Hypertension Denies:: Cancer, Diabetes Mellitus Type 1, Diabetes Mellitus Type 2, MRSA, Seizures *Have you ever received a pneumonia vaccine?: Yes *Have you received a flu vaccine this season?: Yes Other 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: Denies: Blood Transfusion Reaction Laterality Cases: Bilateral: Arthroscopy Knee Other Surgeries: Yes: Cholecystectomy, , Tubal Ligation, Other (back surgery 2016, cholecystectomy) Amputation: No Fractures: No - *Social History Smoking Status: Former smoker Tobacco Type: smokeless tobacco Alcohol Intake: never *Occupational Status:: other Housing: house Household Members: spouse *Travel in the last 8 weeks: None Family Hx:: Cancer, Coronary Artery Disease, Diabetes, Heart Attack, Stroke
--- NOTE | 2019-01-26 13:04 | P.CONS_ITS ---
[facility] Pain Management SOAP Note Subjective:: Patient is a pleasant 48-year-old white female who presents today for follow-up and medication refills. She is being treated for back pain secondary to degenerative disc disease lumbar spine with lumbar radiculopathy she rates her pain today 5 out of 10. She is currently on Percocet 10 mg 1 p.o. 3 times daily and gabapentin 800 mg 1 p.o. 3 times daily. She denies any side effects or medication and states is up to 80% beneficial. Patient's IRASEMA #[id number] reviewed and appropriate urine drug screens have been appropriate in the past. She is not interested in injective therapy at this time she is also uninterested in any intrathecal pain pumps her spinal cord stimulator she has an appointment with the neurosurgeon this week. ROS General: no recent weight change, no fever, no sleep disturbances Respiratory: no cough, no shortness of air, no recurring pulmonary infections Cardiovascular/Peripheral Vascular: No chest pain, No palpitations, no edema, no shortness of breath. Gastrointestinal: no incontinence, normal bowel movements reported Genitourinary: no incontinence Musculoskeletal: Back pain Psychiatric: normal mood/ affect Neurological: [denies weakness in extremities], [denies balance issues] Objective:: Physical Exam General: Alert and oriented x3, no acute distress, pleasant and cooperative, [on room air] Lungs: Resps E/U, Symmetrical chest expansion, Eyes: PERRL Musculoskeletal: Flexion and extension of lumbar spine somewhat guarded secondary to pain, deep tendon reflexes normal, strength in upper and lower extremities [5/5], [abnormal gait noted] Neurological: speech clear, wellhead pumper equal, no gross sensory deficits Assessment:: Degenerative disc disease lumbar spine with lumbar radiculopathy Plan:: Patient is not interested in any injective therapy at this time. We will refill the patient's Percocet 10 mg 1 p.o. 3 times daily and gabapentin 800 mg 1 p.o. 3 times daily. We will give her 2 months worth of medication and she can picker / packer her third month in the interim. See her back in 3 months reassess her symptoms at that time she is been instructed to call the office if she has not has any issues prior to her next appointment. Patient has been prescribed a controlled substance after being counseled on the medication, medication safety, and possible side effects. IRASEMA report has been obtained and reviewed prior to prescription and found to be appropriate. Opioid contract was reviewed and signed by the patient, and that they have agreed to all of the terms set forth by our compliance program. Dr. Zelaya has reviewed this note and agrees with this plan of care. This note was dictated using voice recognition software and may contain errors or omissions [facility] History I have reviewed the patient's past medical history: Yes 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: Reports:: Arrhythmia, Hypertension Denies:: Cancer, Diabetes Mellitus Type 1, Diabetes Mellitus Type 2, MRSA, Seizures *Have you ever received a pneumonia vaccine?: Yes *Have you received a flu vaccine this season?: Yes Other 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: Denies: Blood Transfusion Reaction Laterality Cases: Bilateral: Arthroscopy Knee Other Surgeries: Yes: Cholecystectomy, , Tubal Ligation, Other (back surgery 2016, cholecystectomy) Amputation: No Fractures: No - *Social History Smoking Status: Former smoker Tobacco Type: smokeless tobacco Alcohol Intake: never *Occupational Status:: other Housing: house Household Members: spouse *Travel in the last 8 weeks: None Family Hx:: Cancer, Coronary Ar
[2019-01-26 17:03] LABS: Amphetamine/Metha Screen,Urine Positive ng/mL (<1000); Barbiturates Screen,Urine Negative ng/mL (<200); Benzodiazepines Screen,Urine Negative ng/mL (<200); Cannabinoid Screen,Urine Negative ng/mL (<50); Cocaine Screen,Urine Negative ng/mL (<300); Methadone Screen,Urine Negative ng/mL (<300); Opiate Screen,Urine Positive ng/mL (<300); Phencyclidine Screen,Urine Negative ng/mL (<25)
[2019-01-31 16:14] LABS: Oxycodone (GC/MS) 1861 ng/mL (Cutoff=100)
[2019-01-31 20:01] LABS: Opiates Negative (Cutoff=100); Oxymorphone (GC/MS) 496 ng/mL (Cutoff=100)
== END ==
PROVIDERS: PCP Family Medicine; Visit Provider Clinical Nurse Specialist Family Health
DX: M51.16 Intervertebral disc disorders with radiculopathy, lumbar region (principal); Z79.899 Other long term (current) drug therapy
CPT/HCPCS: 80305; 80361; 80365; 99212; G0480

== ENCOUNTER → 2019-04-27 10:10 | Outpatient (POV) | payer OTHER, SELFPAY ==
--- NOTE | 2019-04-27 10:55 | P.CONS_ITS ---
[facility] Pain Management SOAP Note Subjective:: Patient is a pleasant 48-year-old white female who presents today for follow-up and medication refills. She is currently on Percocet 10 mg 1 p.o. 3 times daily and gabapentin 800 mg 1 p.o. 3 times daily. She rates the pain a 5 out of 10 which is her baseline. Overall doing well. Patient's gotten a new job and is enjoying it quite thoroughly. She denies any side effects or medication. Irasema #[id number] reviewed and appropriate. ROS General: no recent weight change, no fever, no sleep disturbances Respiratory: no cough, no shortness of air, no recurring pulmonary infections Cardiovascular/Peripheral Vascular: No chest pain, No palpitations, no edema, no shortness of breath. Gastrointestinal: no new onset incontinence, normal bowel movements reported Genitourinary: no new onset incontinence Musculoskeletal: Back pain Psychiatric: normal mood/ affect Neurological: [denies new onset weakness in extremities], [denies new onset balance issues] Objective:: Physical Exam General: Alert and oriented x3, no acute distress, pleasant and cooperative, [on room air] Lungs: Resps E/U, Symmetrical chest expansion, Eyes: PERRL Musculoskeletal: Flexion and extension of lumbar spine somewhat guarded secondary to pain, deep tendon reflexes normal, strength in upper and lower extremities [5/5], slightly antalgic gait noted Neurological: speech clear, server security administrator equal, no gross sensory deficits Assessment:: Degenerative disc disease lumbar spine with lumbar radiculopathy Plan:: We will refill her Percocet 10 mg 1 p.o. 3 times daily give her 2 months worth of medication. 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 I will follow- up with the patient in 3 months and assess her symptoms at that time. She is been instructed to call the office if she has any issues prior to her next appointment. Dr. Zelaya has reviewed this note and agrees with this plan of care. Patient has been prescribed a controlled substance after being counseled on the medication, medication safety, and possible side effects. IRASEMA report has been obtained and reviewed prior to prescription and found to be appropriate. Opioid contract was reviewed and signed by the patient, and that they have agreed to all of the terms set forth by our compliance program.This note was dictated using voice recognition software and may contain errors or omissions [facility] History I have reviewed the patient's past medical history: Yes 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: Reports:: Arrhythmia, Hypertension Denies:: Cancer, Diabetes Mellitus Type 1, Diabetes Mellitus Type 2, MRSA, Seizures *Have you ever received a pneumonia vaccine?: No *Have you received a flu vaccine this season?: Yes Other 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: Denies: Blood Transfusion Reaction Laterality Cases: Bilateral: Arthroscopy Knee Other Surgeries: Yes: Cholecystectomy, , Tubal Ligation, Other (back surgery 2016, cholecystectomy) Amputation: No Fractures: No - *Social History Smoking Status: Never smoker Tobacco Type: smokeless tobacco Alcohol Intake: never *Occupational Status:: disabled Housing: house Household Members: spouse *Travel in the last 8 weeks: None Family Hx:: Cancer, Coronary Artery Disease, Diabetes, Heart Attack, Stroke
[2019-04-27 11:59] VITALS: BP 149/92; PULSE 80; RESP 18; O2SAT 98; BMI 41.8
[2019-04-27 13:11] LABS: Amphetamine/Metha Screen,Urine Negative ng/mL (<1000); Barbiturates Screen,Urine Negative ng/mL (<200); Benzodiazepines Screen,Urine Negative ng/mL (<200); Cannabinoid Screen,Urine Negative ng/mL (<50); Cocaine Screen,Urine Negative ng/mL (<300); Methadone Screen,Urine Negative ng/mL (<300); Opiate Screen,Urine Positive ng/mL (<300); Phencyclidine Screen,Urine Negative ng/mL (<25)
[2019-05-01 14:19] LABS: Oxycodone (GC/MS) 1919 ng/mL (Cutoff=100)
[2019-05-01 16:06] LABS: Opiates Negative (Cutoff=100); Oxymorphone (GC/MS) 812 ng/mL (Cutoff=100)
== END ==
PROVIDERS: PCP Internal Medicine; Visit Provider Clinical Nurse Specialist Family Health
DX: M51.16 Intervertebral disc disorders with radiculopathy, lumbar region (principal); Z79.899 Other long term (current) drug therapy
CPT/HCPCS: 80305; 80361; 80365; 99212; G0480

== ENCOUNTER → 2019-07-21 09:06 | Outpatient (POV) | payer OTHER, SELFPAY ==
--- NOTE | 2019-07-21 09:14 | HMH.VVPMSO ---
[facility] PM Virtual Visit SOAP Consent for virtual visit:: With the recent concerns about the COVID-19, we are trying to minimize exposure to you by shifting to telehealth appointments whenever possible. It restricts me from seeing you in person, but the trade off is protecting you during this pandemic. Can you see and hear me okay, and do you consent to this option? If not, I would be happy to see if we can reschedule your appointment in the future, when feasible. Has patient consented to this virtual visit?: Yes Subjective:: Is a pleasant 49-year-old white female who presents today for follow-up and medication refills. She is currently on Percocet 10 mg 1 p.o. 3 times daily and gabapentin 800 mg 1 p.o. 3 times daily. She rates her pain a 5 out of 10 which is her baseline overall doing well. Patient and I discussed changing her gabapentin to Lyrica because she feels like it is not as effective as it used to be. We will move forward with this today. [facility] #[id number] reviewed and appropriate. Patient's drug screens have been appropriate. She denies any side effects from her medications she has recently gotten a new job and is continuing to work. I encouraged her to continue to practice social distancing and visual handwashing. ROS General: no recent weight change, no fever, no sleep disturbances Respiratory: no cough, no shortness of air, no recurring pulmonary infections Cardiovascular/Peripheral Vascular: No chest pain, No palpitations, no edema, no shortness of breath. Gastrointestinal: no new onset incontinence, normal bowel movements reported Genitourinary: no new onset incontinence Musculoskeletal: Back pain Psychiatric: normal mood/ affect Neurological: [denies new onset weakness in extremities], [denies new onset balance issues] Objective:: Physical exam: Constitutional: Healthy appearing, well-developed, alert, in no acute distress Psychiatric: Judgment and insight intact, Alert and oriented x4 Mood and affect: Mood normal, affect appropriate Head and face: Inspection: Normocephalic atraumatic, extraocular movement intact Respiratory: Breathing nonlabored, nondyspneic Cardiovascular: No cyanosis, clubbing, or edema observed Skin: Head and neck: Skin with no lesions or rash observed Gait: Able to walk without assistive device: Able to heel and toe walk Neurologic: Sensation grossly intact per patient Musculoskeletal: Decreased range of motion lumbar spine noted on telehealth visit Assessment:: Degenerative disc disease lumbar spine with lumbar radiculopathy Plan:: We will continue her Percocet 10 mg 1 p.o. 3 times daily and give her 1 month of her medication. And change her to Lyrica 150 mg 1 p.o. twice daily. We will see if this is beneficial for her. We will follow-up in 1 month reassess her at that time if we are still having issues with the pandemic we will plan a telehealth visit. This encounter was performed as a telemedicine visit via secure 2 way video and audio to minimize risk and transmission of Covid-19. The patient and we understand the limitations of a telemedicine visit including inability to check reflexes, possibly missing subtle findings on physical exam. Alternative options were presented to the patient and the patient elected to proceed with the visit. We specifically discussed risk factors for Covid-19 including age, heart or lung disease, diabetes, immunosuppression and travel. We also discussed that NSAIDs may worsen Covid-19 infection symptoms and that they should not be used to treat Covid-19 symptoms. Patient was also informed that corticosteroids in any form oral or injectable will decrease immune response and may increase risk of Covid-[address] Zelaya has reviewed this patient's chart and this note and agrees with plan of care. Patient has been instructed to call the office if they have any issues prior to the next appointment. This note was dictated using voice recogniti
== END ==
PROVIDERS: Visit Provider Clinical Nurse Specialist Family Health
DX: M51.16 Intervertebral disc disorders with radiculopathy, lumbar region (principal)
CPT/HCPCS: 99212

== ENCOUNTER → 2019-08-18 10:13 | Outpatient (POV) | payer OTHER, SELFPAY ==
--- NOTE | 2019-08-18 12:39 | HMH.VVPMSO ---
[facility] PM Virtual Visit SOAP Consent for virtual visit:: With the recent concerns about the COVID-19, we are trying to minimize exposure to you by shifting to telehealth appointments whenever possible. It restricts me from seeing you in person, but the trade off is protecting you during this pandemic. Can you see and hear me okay, and do you consent to this option? If not, I would be happy to see if we can reschedule your appointment in the future, when feasible. Has patient consented to this virtual visit?: Yes Subjective:: Patient is a pleasant 49-year-old white female who presents today for medication refills. She is currently on Percocet 10 mg 1 p.o. 3 times daily and gabapentin 800 mg 1 p.o. 3 times daily. She rates her pain a 6 out of 10. She is recently started working more hours and finds it difficult to keep up. Patient would like to discuss potential temporary increase of her medication due to her increased work hours. Patient also states that the gabapentin was more effective than the Lyrica. She denies side effects from medication [place] reviewed and appropriate. ROS General: no recent weight change, no fever, no sleep disturbances Respiratory: no cough, no shortness of air, no recurring pulmonary infections Cardiovascular/Peripheral Vascular: No chest pain, No palpitations, no edema, no shortness of breath. Gastrointestinal: no new onset incontinence, normal bowel movements reported Genitourinary: no new onset incontinence Musculoskeletal: Back pain, leg pain Psychiatric: normal mood/ affect Neurological: [denies new onset weakness in extremities], [denies new onset balance issues] Objective:: Physical exam: Constitutional: Healthy appearing, well-developed, alert, in no acute distress Psychiatric: Judgment and insight intact, Alert and oriented x4 Mood and affect: Mood normal, affect appropriate Head and face: Inspection: Normocephalic atraumatic, extraocular movement intact Respiratory: Breathing nonlabored, nondyspneic Cardiovascular: No cyanosis, clubbing, or edema observed Skin: Head and neck: Skin with no lesions or rash observed Gait: Able to walk without assistive device: Able to heel and toe walk Neurologic: Sensation grossly intact per patient Musculoskeletal: Patient has decreased range of motion lumbar spine noted on video Assessment:: Degenerative disc disease lumbar spine with lumbar radiculopathy Plan:: We will increase her Percocet to 10 mg 1 p.o. 4 times daily. This will be temporary while she is working more hours. I will follow-up with her in 2 months and reassess her symptoms at that time she has been instructed to call the office if she has any issues prior to her next appointment. Dr. Zelaya has reviewed this note and agrees with this plan of care. This note was dictated using voice recognition software and may contain errors or omissions this encounter was performed as a telemedicine visit via secure 2 way video and audio to minimize risk and transmission of Covid-19. The patient and we understand the limitations of a telemedicine visit including inability to check reflexes, possibly missing subtle findings on physical exam. Alternative options were presented to the patient and the patient elected to proceed with the visit. We specifically discussed risk factors for Covid-19 including age, heart or lung disease, diabetes, immunosuppression and travel. We also discussed that NSAIDs may worsen Covid-19 infection symptoms and that they should not be used to treat Covid-19 symptoms. Patient was also informed that corticosteroids in any form oral or injectable will decrease immune response and may increase risk of Covid-[address] Zelaya has reviewed this patient's chart and this note and agrees with plan of care. Patient has been instructed to call the office if they have any issues prior to the next appointment. Patient has been prescribed a controlled substance after being coun
== END ==
PROVIDERS: Visit Provider Clinical Nurse Specialist Family Health
DX: M51.16 Intervertebral disc disorders with radiculopathy, lumbar region (principal)
CPT/HCPCS: 99212

== ENCOUNTER → 2019-11-26 09:52 | Outpatient (POV) | payer OTHER, SELFPAY ==
[2019-11-26 10:36] VITALS: BP 142/78; PULSE 74; RESP 18; TEMP 36.6; O2SAT 99; BMI 45.6
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
== END ==
PROVIDERS: Visit Provider Clinical Nurse Specialist Family Health
DX: M51.16 Intervertebral disc disorders with radiculopathy, lumbar region (principal); M25.551 Pain in right hip; G89.29 Other chronic pain
CPT/HCPCS: 99212

== ENCOUNTER 2020-02-11 08:30 | Outpatient (RCR) | payer OTHER, SELFPAY | END 2020-02-11 09:39 | disposition home or self-care (01) | LOC: PT 08:30 | PROVIDERS: Visit Provider Orthopaedic Surgery | DX: M62.81 Muscle weakness (generalized); M25.561 Pain in right knee | CPT/HCPCS: 97010; 97014; 97110; 97163; G0283 ==

== ENCOUNTER → 2020-02-25 10:40 | Outpatient (POV) | payer OTHER, SELFPAY ==
[2020-02-25 11:02] VITALS: BP 133/78; PULSE 74; RESP 18; TEMP 36.9; O2SAT 98; BMI 43.4
--- NOTE | 2020-02-28 13:26 | P.CONS_ITS ---
[facility] Pain Management SOAP Note Subjective:: Is a pleasant 49-year-old white female presents today for medication refills. She is being treated for pain secondary to degenerative disc disease lumbar spine and lumbar radiculopathy. She is currently being medically managed with Percocet 10 mg 1 p.o. 4 times daily. She denies side effects from medication she states it is helpful. She rates her pain a 6 out of 10 today. Patient's Irasema #[id number] reviewed and appropriate. Drug screens have been appropriate. Patient and I discussed getting some updated imaging in regards to her pain. We may move forward with this at this time she would like to hold off. ROS General: no recent weight change, no fever, no sleep disturbances Respiratory: no cough, no shortness of air, no recurring pulmonary infections Cardiovascular/Peripheral Vascular: No chest pain, No palpitations, no edema, no shortness of breath. Gastrointestinal: no new onset incontinence, normal bowel movements reported Genitourinary: no new onset incontinence Musculoskeletal: Back pain, leg pain, right hip pain Psychiatric: normal mood/ affect Neurological: [denies new onset weakness in extremities], [denies new onset balance issues] Objective:: Physical Exam General: Alert and oriented x3, no acute distress, pleasant and cooperative, [on room air] Lungs: Resps E/U, Symmetrical chest expansion, Eyes: PERRL Musculoskeletal: Flexion and extension of lumbar spine somewhat guarded secondary to pain, deep tendon reflexes normal, strength in upper and lower extremities [5/5], [abnormal gait noted] Neurological: speech clear, laser/electro optics technician equal, no gross sensory deficits Assessment:: Degenerative disc disease lumbar spine lumbar radiculopathy, chronic right hip pain Plan:: We will refill her Percocet 10 mg 1 tab p.o. 4 times daily. We will continue this prescription we will see her back in 3 months reassess her symptoms at that time she has been instructed to call the office if she has any issues prior to her next appointment. Dr. Zelaya has reviewed this note and agrees with this plan of care. This note was dictated using voice recognition software and may contain errors or omissions Patient has been prescribed a controlled substance after being counseled on the medication, medication safety, and possible side effects. IRASEMA report has been obtained and reviewed prior to prescription and found to be appropriate. Opioid contract was reviewed and signed by the patient, and that they have agreed to all of the terms set forth by our compliance program. [facility] History I have reviewed the patient's past medical history: Yes 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: Reports:: Arrhythmia, Hypertension Denies:: Cancer, Diabetes Mellitus Type 1, Diabetes Mellitus Type 2, MRSA, Seizures *Have you ever received a pneumonia vaccine?: No *Have you received a flu vaccine this season?: No Other 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: Denies: Blood Transfusion Reaction Laterality Cases: Bilateral: Arthroscopy Knee Other Surgeries: Yes: Cholecystectomy, , Tubal Ligation, Other (back surgery 2016, cholecystectomy) Amputation: No Fractures: No - *Social History Smoking Status: Never smoker Tobacco Type: smokeless tobacco Alcohol Intake: never *Occupational Status:: other Housing: house Household Members: spouse *Travel in the last 8 weeks: None Family Hx:: Cancer, Coronary Artery Disease, Diabetes, Heart Attack, Stroke
== END ==
PROVIDERS: Visit Provider Clinical Nurse Specialist Family Health
DX: M51.16 Intervertebral disc disorders with radiculopathy, lumbar region (principal); M25.551 Pain in right hip; G89.29 Other chronic pain
CPT/HCPCS: 99212

== ENCOUNTER → 2020-03-24 10:36 | Outpatient (POV) | payer OTHER, SELFPAY ==
[2020-03-24 10:45] VITALS: BP 135/78; PULSE 85; RESP 18; TEMP 36.6; O2SAT 98; BMI 44.9
--- NOTE | 2020-03-24 12:01 | P.CONS_ITS ---
[facility] Pain Management SOAP Note Subjective:: Patient is a pleasant 49-year-old white female who presents today for medication refills. Patient is being treated for pain secondary to degenerative disc disease lumbar spine lumbar radiculopathy. She is currently being medically managed with Percocet 10 mg 1 p.o. 4 times daily. She denies side effects to medication. She rates her pain today 5 out of 10. [facility] #[id number] reviewed and appropriate. Patient's drug screen did show a small amount of [place]. I discussed this in detail with the patient. Patient states she is unsure how this happened she does have old [place] at home I told her to get rid of this prescription. We will continue to monitor. Patient states the medication helps up to 80%. Her morphine equivalent is 60 she is also on gabapentin 800 mg 1 p.o. 3 times daily ROS General: no recent weight change, no fever, no sleep disturbances Respiratory: no cough, no shortness of air, no recurring pulmonary infections Cardiovascular/Peripheral Vascular: No chest pain, No palpitations, no edema, no shortness of breath. Gastrointestinal: no new onset incontinence, normal bowel movements reported Genitourinary: no new onset incontinence Musculoskeletal: Back pain, leg pain Psychiatric: normal mood/ affect, Neurological: [denies new onset weakness in extremities], [denies new onset balance issues] Objective:: Physical Exam General: Alert and oriented x3, no acute distress, pleasant and cooperative, [on room air] Lungs: Resps E/U, Symmetrical chest expansion, Eyes: PERRL Musculoskeletal: Flexion and extension of lumbar spine somewhat guarded secondary to pain, deep tendon reflexes normal, strength in upper and lower extremities [5/5], [abnormal gait noted] Neurological: speech clear, leather colorer equal, no gross sensory deficits Assessment:: Degenerative disc disease lumbar spine lumbar radiculopathy Plan:: Continue the patient's Percocet 10 mg 1 p.o. 3 times daily and gabapentin 800 mg 1 p.o. 3 times daily. We will continue to monitor her drug screens. Patient wi ll be called in for random drug screen. She has been instructed to call the office if she has any issues prior to her next appointment. Dr. Zelaya has reviewed this note and agrees with this plan of care. This note was dictated using voice recognition software and may contain errors or omissions [facility] History I have reviewed the patient's past medical history: Yes 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: Reports:: Arrhythmia, Hypertension Denies:: Cancer, Diabetes Mellitus Type 1, Diabetes Mellitus Type 2, MRSA, Seizures *Have you ever received a pneumonia vaccine?: No *Have you received a flu vaccine this season?: No Other 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: Denies: Blood Transfusion Reaction Laterality Cases: Bilateral: Arthroscopy Knee Other Surgeries: Yes: Cholecystectomy, , Tubal Ligation, Other (back surgery 2015, cholecystectomy) Amputation: No Fractures: No - *Social History Smoking Status: Never smoker Tobacco Type: smokeless tobacco Alcohol Intake: never *Occupational Status:: other Housing: house Household Members: spouse *Travel in the last 8 weeks: None Family Hx:: Cancer, Coronary Artery Disease, Diabetes, Heart Attack, Stroke
== END ==
PROVIDERS: Visit Provider Clinical Nurse Specialist Family Health
DX: M51.16 Intervertebral disc disorders with radiculopathy, lumbar region (principal)
CPT/HCPCS: 99212

== ENCOUNTER → 2020-06-23 10:27 | Outpatient (POV) | payer OTHER, SELFPAY ==
[2020-06-23 12:09] VITALS: BP 132/77; PULSE 74; RESP 18; O2SAT 98; BMI 45.1
--- NOTE | 2020-06-23 13:07 | HMH.PAINSOAP ---
[facility] Pain Management SOAP Note Subjective:: Patient is a pleasant 49-year-old white female who presents today for medication refills. Patient is being treated for pain secondary to degenerative disc disease lumbar spine lumbar radiculopathy. She is also having a flareup in her sacroiliitis. She has a positive Irina's test SI joint compression test distraction test and Yuridia test bilaterally. She has had SI joint injections by her primary care physician she states that she would like to have them done here she states she does get relief from them. Patient currently on Percocet 10 mg 1 p.o. 4 times daily. She denies any side effects to this medication. [facility] #[id number] reviewed and appropriate. ROS General: no recent weight change, no fever, no sleep disturbances Respiratory: no cough, no shortness of air, no recurring pulmonary infections Cardiovascular/Peripheral Vascular: No chest pain, No palpitations, no edema, no shortness of breath. Gastrointestinal: no new onset incontinence, normal bowel movements reported Genitourinary: no new onset incontinence Musculoskeletal: Back pain, leg pain, SI joint pain Psychiatric: normal mood/ affect Neurological: [denies new onset weakness in extremities], [denies new onset balance issues] Objective:: Physical Exam General: Alert and oriented x3, no acute distress, pleasant and cooperative, [on room air] Lungs: Resps E/U, Symmetrical chest expansion, Eyes: PERRL Musculoskeletal: Flexion and extension of lumbar spine somewhat guarded secondary to pain, deep tendon reflexes normal, strength in upper and lower extremities [5/5], [abnormal gait noted] Neurological: speech clear, sports photographer equal, no gross sensory deficits Assessment:: Degenerative disc disease lumbar spine lumbar radiculopathy, back pain, sacroiliitis Plan:: We will continue her Percocet 10 mg 1 p.o. 3 times daily and gabapentin 800 mg 1 p.o. 3 times daily. We will continue to monitor drug screens. Patient will be set up for bilateral SI joint injections. Given the efficacy of this in the past I do believe it would benefit her. I will follow-up with her after this reassess her symptoms at that time she has been instructed to call the office if she has any issues prior to her next appointment. Dr. Zelaya has reviewed this note and agrees with this plan of care. This note was dictated using voice recognition software and may contain errors or omissions Patient has been prescribed a controlled substance after being counseled on the medication, medication safety, and possible side effects. IRASEMA report has been obtained and reviewed prior to prescription and found to be appropriate. Opioid contract was reviewed and signed by the patient, and that they have agreed to all of the terms set forth by our compliance program. [facility] History I have reviewed the patient's past medical history: Yes 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: Reports:: Arrhythmia, Hypertension Denies:: Cancer, Diabetes Mellitus Type 1, Diabetes Mellitus Type 2, MRSA, Seizures *Have you ever received a pneumonia vaccine?: Yes *Have you received a flu vaccine this season?: Yes Other 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: Denies: Blood Transfusion Reaction Laterality Cases: Bilateral: Arthroscopy Knee Other Surgeries: Yes: Cholecystectomy, , Tubal Ligation, Other (back surgery 2016, cholecystectomy) Amputation: No Fractures: No - *Social History Smoking Status: Never smoker Tobacco Type: smokeless tobacco Alcohol Intake: never *Occupational Status:: other Housing: house Household Members: spouse *Travel in the last 8 weeks: None Family Hx:: Cancer, Coronary Artery Disease, Diabetes, Heart Attack, Stroke
== END ==
PROVIDERS: Visit Provider Clinical Nurse Specialist Family Health
DX: M51.16 Intervertebral disc disorders with radiculopathy, lumbar region (principal); M46.1 Sacroiliitis, not elsewhere classified
CPT/HCPCS: 99212; G0463

== ENCOUNTER → 2020-08-01 08:39 | Outpatient (POV) | payer OTHER, SELFPAY ==
--- NOTE | 2020-08-01 08:53 | P.CONS_ITS ---
[facility] Pain Management SOAP Note Subjective:: Patient is a pleasant 50-year-old white female who presents today for medication refills. Patient is trying to work. She is currently working at [employer]. She is having difficulty with the long hours. Patient is currently on Percocet 10 mg 1 p.o. 4 times daily. Patient wants to talk about increase in her medication. Patient and I had a discussion in regards to morphine equivalents and along with medication safety. Patient had her SI joint injections denied. She rates her pain today a 5 out of 10. ROS General: no recent weight change, no fever, no sleep disturbances Respiratory: no cough, no shortness of air, no recurring pulmonary infections Cardiovascular/Peripheral Vascular: No chest pain, No palpitations, no edema, no shortness of breath. Gastrointestinal: no new onset incontinence, normal bowel movements reported Genitourinary: no new onset incontinence Musculoskeletal: Back pain, leg pain Psychiatric: normal mood/ affect Neurological: [denies new onset weakness in extremities], [denies new onset balance issues] Objective:: Physical Exam General: Alert and oriented x3, no acute distress, pleasant and cooperative, [on room air] Lungs: Resps E/U, Symmetrical chest expansion, Eyes: PERRL Musculoskeletal: Flexion and extension of lumbar spine somewhat guarded secondary to pain, deep tendon reflexes normal, strength in upper and lower extremities [5/5], [abnormal gait noted] Neurological: speech clear, senior designer/art director equal, no gross sensory deficits Assessment:: Degenerative disc disease lumbar spine lumbar radiculopathy, back pain, sacroiliitis Plan:: We will try Percocet 10 mg 1 p.o. 5 times a day for 1 month. If she does not get adequate relief we will discuss intrathecal therapy. I do want to assist her in continuing to work for as long as possible. I will follow-up with her afterwards reassess her symptoms at that time she has been instructed to call the office if she has any issues prior to her next appointment. Dr. Zelaya has reviewed this note and agrees with this plan of care. This note was dictated using voice recognition software and may contain errors or omissions [facility] History I have reviewed the patient's past medical history: Yes 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: Reports:: Arrhythmia, Hypertension Denies:: Cancer, Diabetes Mellitus Type 1, Diabetes Mellitus Type 2, MRSA, Seizures *Have you ever received a pneumonia vaccine?: Yes *Have you received a flu vaccine this season?: Yes Other 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: Denies: Blood Transfusion Reaction Laterality Cases: Bilateral: Arthroscopy Knee Other Surgeries: Yes: Cholecystectomy, , Tubal Ligation, Other (back surgery 2016, cholecystectomy) Amputation: No Fractures: No - *Social History Smoking Status: Never smoker Tobacco Type: smokeless tobacco Alcohol Intake: never *Occupational Status:: other Housing: house Household Members: spouse *Travel in the last 8 weeks: None Family Hx:: Cancer, Coronary Artery Disease, Diabetes, Heart Attack, Stroke
[2020-08-01 09:01] VITALS: BP 142/78; PULSE 74; RESP 18; O2SAT 98; BMI 46.5
== END ==
PROVIDERS: Visit Provider Clinical Nurse Specialist Family Health
DX: M51.16 Intervertebral disc disorders with radiculopathy, lumbar region (principal); M46.1 Sacroiliitis, not elsewhere classified
CPT/HCPCS: 99212; G0463

== ENCOUNTER 2020-08-07 14:36 | Emergency (ER) | payer OTHER, SELFPAY ==
[2020-08-07 14:49] VITALS: BP 152/80; PULSE 94; RESP 16; TEMP 36.8; O2SAT 95; BMI 45.4
--- NOTE | 2020-08-07 14:57 | HMH.EDUTC ---
[facility] Disposition Clinical Impression: Bronchitis Disposition: Home, Self-Care Condition on Discharge: Good Instructions: DI for Acute Bronchitis Prescriptions: predniSONE [Prednisone 20mg Tab] 20 mg PO BID 5 Days #10 tab Transmission Status: Pending to [facility] predniSONE [Prednisone 20mg Tab] 20 mg PO BID 5 Days #10 tab Transmission Status: Pending to [facility] Azithromycin [Zithromax 250mg tab] 250 mg PO DIRECTED #6 tab Transmission Status: Pending to [facility] Azithromycin [Zithromax 250mg tab] 250 mg PO DIRECTED #6 tab Transmission Status: Pending to [facility] Cetirizine HCl [Zyrtec 10mg Tab*] 10 mg PO DAILY #10 tab Transmission Status: Pending to [facility] Cetirizine HCl [Zyrtec 10mg Tab*] 10 mg PO DAILY 30 Days #30 tab Transmission Status: Pending to [facility] Referrals: Gamal Queen JR, MD [Primary Care Provider] - Time of Disposition: 15:07 Medical Decision Making - Evans Inquiry Pt receiving controlled substance: No Vital Signs: 08/07/20 14:49 Temperature 98.3 F Temperature Source Oral Pulse Rate [Left] 94 H Respiratory Rate 16 Blood Pressure [Right Arm] 152/80 H Blood Pressure Mean [Right Arm] 104 Blood Pressure Source [Right Arm] Automatic Cuff Blood Pressure Position [Right Arm] Sitting 02 Sat by Pulse Oximetry 95 Oxygen Delivery Method Room Air [facility] HPI - General Stated complaint: GAYTAN,cough,congestion Time Seen by Provider: 08/07/20 14:57 Mode of Arrival: Ambulatory Source of Information: Patient Limitations: No Limitations Description of Symptoms (Recalled from Triage Doc. by RN): Sneezing, coughing with itchy throat, chest tightness, and nausea HEENT Symptoms (Recalled from RN notes): No Resp Symptoms (Recalled from RN notes): No Skin Symptoms (Recalled from RN notes): No MS Symptoms (Recalled from RN notes): No Functional Status (Recalled from RN notes): wnl - History of Present Illness Provider Complaint: Headache, cough, congestion since yesterday. Has felt hot and cold but hasn't taken temp. States her body hurts all the time so isn't sure about body aches. Throat is sore and scratchy. Started after being outdoors all day yesterday. No vomiting or diarrhea. Chest feels a little tight. Onset (ago): day(s) (1) Location: chest Relieving factors: none Exacerbating factors: none Associated symptoms: cough Treatments prior to arrival: none - Related Data Home Medications Medication Instructions Recorded Confirmed Diclofenac Sodium [Diclofenac 75mg 75 mg PO BID 06/10/17 12/06/17 Tab] Ergocalciferol (Vitamin D2) 2,000 unit PO WEEKLY 06/10/17 12/06/17 [Vitamin D2] Estrogen,Dianelys/Me-Testosterone 1.25 - 2.5 mg PO DAILY 06/10/17 12/06/17 [Eemt Ds 1.25-2.5 mg Tablet] Flecainide Acetate [Tambocor 50mg 50 mg PO DAILY 06/10/17 12/06/17 tablet] Gabapentin [Gabapentin 300mg Cap] 300 mg PO DAILY 06/10/17 12/06/17 Loratadine [Claritin 10mg 10 mg PO DAILY 06/10/17 12/06/17 Tablet] Medroxyprogesterone Acetate 2.5 mg PO DAILY 06/10/17 12/06/17 [Provera 2.5mg tablet] Metoprolol/Hydrochlorothiazide 1 each PO DAILY 06/10/17 12/06/17 [Metoprolol-Hctz 50-25 mg Tab] Omeprazole [Omeprazole 20mg 20 mg PO DAILY 06/10/17 12/06/17 Capsule] raNITIdine HCl [Acid Control] 150 mg PO DAILY 06/10/17 12/06/17 Previous Rx's Medication Instructions Recorded Benzonatate [Tessalon Perle 100mg 100 mg PO TID #30 cap 03/29/18 Cap] cephALEXin [Keflex 500mg Cap] 500 mg PO TID #30 cap 03/29/18 Benzonatate [Tessalon Perle 100mg 100 mg PO TIDP PRN #30 cap 03/20/19 Cap] Phenazopyridine HCl [Pyridium 200 pow PO TID #6 tab 04/07/19 200mg Tablet] Pregabalin [Lyrica 150mg Cap] 150 mg PO BID #60 cap 07/21/19 Duloxetine HCl [Cymbalta 30mg 30 mg PO DAILY #30 capsule. 02/25/20 capsule] Gabapentin [Neurontin 800mg Tab] 800 mg PO TID #5 tab 06/27/20 Oxycodone
[2020-08-07 14:59] VITALS: BP 152/80; PULSE 94; RESP 16; TEMP 36.8; O2SAT 95
== END 2020-08-07 15:09 | disposition home or self-care (01) ==
PROVIDERS: Emergency Provider Physician Assistant; PCP Family Medicine
DX: J20.9 Acute bronchitis, unspecified (principal); I10 Essential (primary) hypertension; Z79.899 Other long term (current) drug therapy
CPT/HCPCS: 99202; G0463; U0003

== ENCOUNTER → 2020-08-29 08:59 | Outpatient (POV) | payer OTHER, SELFPAY ==
[2020-08-29 09:13] VITALS: BP 108/54; PULSE 84; RESP 18; O2SAT 98; BMI 47.0
--- NOTE | 2020-08-29 09:39 | P.CONS_ITS ---
[facility] Pain Management SOAP Note Subjective:: Patient is a pleasant 50-year-old white female who presents today for follow-up and medication refills. She is currently on Percocet 10 mg 1 p.o. 5 times a day. Overall does extremely well with this her morphine equivalent is 75. Patient is continuing to work. She is also on gabapentin 800 mg 1 p.o. 3 times daily. [facility] #[id number] reviewed and appropriate drug screens have been appropriate. Patient is excited today she has celebrated her great grandchild's this week. Overall patient is doing well at this time. ROS General: no recent weight change, no fever, no sleep disturbances Respiratory: no cough, no shortness of air, no recurring pulmonary infections Cardiovascular/Peripheral Vascular: No chest pain, No palpitations, no edema, no shortness of breath. Gastrointestinal: no new onset incontinence, normal bowel movements reported Genitourinary: no new onset incontinence Musculoskeletal: Back pain, leg pain Psychiatric: normal mood/ affect Neurological: [denies new onset weakness in extremities], [denies new onset balance issues] Objective:: Physical Exam General: Alert and oriented x3, no acute distress, pleasant and cooperative, [on room air] Lungs: Resps E/U, Symmetrical chest expansion, Eyes: PERRL Musculoskeletal: Flexion and extension of lumbar spine somewhat guarded secondary to pain, deep tendon reflexes normal, strength in upper and lower extremities [5/5], antalgic gait noted Neurological: speech clear, hog slaughterer equal, no gross sensory deficits Assessment:: Degenerative disc disease lumbar spine lumbar radiculopathy back pain Plan:: Patient will continue with her Percocet 10 mg 1 p.o. 5 times a day. I will follow-up with her month reassess her symptoms at that time she has been instructed to call the office if she has any issues prior to her next ap pointment. Dr. Zelaya has reviewed this note and agrees with this plan of care. This note was dictated using voice recognition software and may contain errors or omissions Patient has been prescribed a controlled substance after being counseled on the medication, medication safety, and possible side effects. [facility] report has been obtained and reviewed prior to prescription and found to be appropriate. Opioid contract was reviewed and signed by the patient, and that they have agreed to all of the terms set forth by our compliance program. [facility] History I have reviewed the patient's past medical history: Yes 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: Reports:: Arrhythmia, Hypertension Denies:: Cancer, Diabetes Mellitus Type 1, Diabetes Mellitus Type 2, MRSA, Seizures *Have you ever received a pneumonia vaccine?: Yes *Have you received a flu vaccine this season?: Yes Other 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: Denies: Blood Transfusion Reaction Laterality Cases: Bilateral: Arthroscopy Knee Other Surgeries: Yes: Cholecystectomy, , Tubal Ligation, Other (back surgery 2015, cholecystectomy) Amputation: No Fractures: No - *Social History Smoking Status: Never smoker Tobacco Type: smokeless tobacco Alcohol Intake: never *Occupational Status:: employed Housing: house Household Members: spouse *Travel in the last 8 weeks: None Family Hx:: Cancer, Coronary Artery Disease, Diabetes, Heart Attack, Stroke
== END ==
PROVIDERS: Visit Provider Clinical Nurse Specialist Family Health
DX: M51.16 Intervertebral disc disorders with radiculopathy, lumbar region (principal)
CPT/HCPCS: 99212; G0463

== ENCOUNTER → 2020-10-17 09:20 | Outpatient (POV) | payer OTHER, SELFPAY ==
--- NOTE | 2020-10-17 09:45 | HMH.PAINSOAP ---
[facility] Pain Management SOAP Note Subjective:: Patient is a pleasant 50-year-old white female who presents today for medication refills and for follow-up. She has been treated for degenerative disc disease lumbar spine with lumbar radiculopathy symptoms and chronic back pain. She is managed with Percocet 10 mg 1 tablet p.o. 5 times daily as well as gabapentin 800 mg 1 tablet p.o. 3 times daily. She denies any side effects. Her Irasema and drug screens have been appropriate. She is doing well with the medication overall. She does report to be having continued pain when going up stairs, however. Otherwise, she says her medication does work well for her. She is continuing to work. She rates her pain a 5 out of 10. Review of Systems General: No recent weight changes, no fever, no sleep disturbances Respiratory: No cough, no shortness of air, no recurring pulmonary infections Cardiovascular/peripheral vascular: No chest pain, no palpitations, no edema, no shortness of breath Gastrointestinal: No new onset incontinence, normal bowel movements reported Genitourinary: No new onset incontinence Musculoskeletal: Low back pain Psychiatric: Normal mood/affect Neurological: [Denies weakness in extremities], [denies balance issues] Objective:: Physical exam General: Alert and oriented x3, no acute distress, pleasant and cooperative, [on room air] Lungs: Respirations even and unlabored, symmetrical chest expansion Eyes: PERRL Musculoskeletal: Flexion and extension of lumbar spine somewhat guarded secondary to pain, deep tendon reflexes normal, strength in upper and lower extremities [5/5], [abnormal gait noted] Neurological: Speech clear, legal technician equal, no gross sensory deficit Assessment:: Degenerative disc disease lumbar spine with lumbar radiculopathy symptoms, chronic back pain Plan:: We will refill the patient's Percocet 10 mg 1 tablet p.o. 5 times daily and gabapentin 800 mg 1 tablet p.o. 3 times daily. She will get a month medication be seen in the clinic in 1 month for reevaluation of symptoms. Patient has been instructed to contact the clinic with any concerns before the next appointment. Dr. Zelaya has reviewed this note and agrees with this plan of care. This note was dictated using voice recognition software and make contain errors or omissions. Risks and benefits of the medication have been explained in detail to the patient. The patient has been advised to consult with his/her primary care provider and pharmacist regarding drug-drug interaction of medications currently prescribed. Patient has been prescribed a controlled substance after being counseled on the medication, medication safety, and possible side effects. IRASEMA report has been obtained and reviewed prior to prescription and found to be appropriate. Opioid contract was reviewed and signed by the patient, and that they have agreed to all of the terms set forth by our compliance program. [facility] History I have reviewed the patient's past medical history: Yes 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: Reports:: Arrhythmia, Hypertension Denies:: Cancer, Diabetes Mellitus Type 1, Diabetes Mellitus Type 2, MRSA, Seizures *Have you ever received a pneumonia vaccine?: Yes *Have you received a flu vaccine this season?: Yes Other 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: Denies: Blood Transfusion Reaction Laterality Cases: Bilateral: Arthroscopy Knee Other Surgeries: Yes: Cholecystectomy, , Tubal Ligation, Other (back surgery 2016, cholecystectomy) Amputation: No Fractures: No - *Social History Smoking Status: Never smoker Tobacco Type: smokeless tobacco Alcohol Intake: never *Occupational Status:: employed Housing: house Household Members: spouse *Travel in the last 8 weeks: None Family Hx:: Cancer, Coronary Artery Disease, Diabetes, Heart Attack, Stroke
[2020-10-17 12:07] VITALS: BP 150/99; PULSE 79; RESP 20; O2SAT 96; BMI 45.1
== END ==
PROVIDERS: Visit Provider Clinical Nurse Specialist Family Health
DX: M51.16 Intervertebral disc disorders with radiculopathy, lumbar region (principal); G89.29 Other chronic pain
CPT/HCPCS: 99212; G0463

== ENCOUNTER → 2020-11-09 12:04 | Outpatient (CLI) | payer OTHER, SELFPAY ==
[2020-11-16 15:12] LABS: Buprenorphine Negative (Cutoff=10); Opiates Negative (Cutoff=100); Oxycodone (GC/MS) 1219 ng/mL (Cutoff=100); Oxymorphone (GC/MS) 1026 ng/mL (Cutoff=100)
== END ==
PROVIDERS: Visit Provider Clinical Nurse Specialist Family Health
DX: Z79.891 Long term (current) use of opiate analgesic (principal)
CPT/HCPCS: 80348; 80361; 80365; G0480

== ENCOUNTER → 2020-11-17 09:55 | Outpatient (POV) | payer OTHER, SELFPAY ==
[2020-11-17 10:09] VITALS: BP 182/91; PULSE 78; RESP 18; O2SAT 95; BMI 43.5
--- NOTE | 2020-11-17 10:13 | HMH.PAINSOAP ---
[facility] Pain Management SOAP Note Subjective:: Patient is a pleasant 50-year-old white female who presents today for follow-up and medication refills. She is currently being treated for degenerative disc disease of the lumbar spine with lumbar radiculopathy and chronic back pain. She is currently managed with Percocet ten 1 tablet p.o. 5 times daily and gabapentin 800 mg 1 tablet p.o. 3 times a day. Patient states that as of now she is not taking her gabapentin daily, when babysitting her grandchildren it makes her feel foggy. She is requesting a lesser dose on her gabapentin. She is rating her pain today a 4 out of 10. The patient did have a random drug screen, that showed positive for Suboxone and a small amount. This was discussed with patient. She is denying taking his Suboxone prescription. I informed the patient that this could potentially be an environmental contamination. The patient is very worrisome over testing positive. She has stopped her medications and performed drug screens from her primary care and [id number] they are only showing positive for her pain medications. We did send her for urine drug screen confirmation. The confirmation came back as an appropriate drug screen negative for Suboxone. I did inform the patient today that it is likely an environmental contaminant. We will continue to prescribe her medication. Her Evans number is [id number] she has an active morphine equivalent of 150. Objective:: Physical exam General: Alert and oriented x3 no acute distress, pleasant and cooperative, [on room air] Lungs: Respirations even and unlabored, symmetrical chest expansion Eyes: PERRL Musculoskeletal: Flexion and extension of the lumbar spine nonguarded, deep tendon reflexes normal, strength in upper and lower extremities 5 out of 5 normal gait noted Neurological: Speech clear, leveler helper equal, no gross sensory deficit Assessment:: Degenerative disc disease of the lumbar spine, lumbar radiculopathy, chronic back pain Plan:: We will continue the patient's Percocet 10 mg 1 tablet p.o. 5 times a day, we will change her gabapentin prescription to 400 mg 3 times daily. We will need to see the patient back in 1 month for follow-up and medication refills. She is welcome to contact the clinic if she has any questions or concerns prior to her next appointment date. Dr. Zelaya has reviewed this note and agrees with this plan of care. This note was dictated using voice recognition software and make contain errors or omissions. [facility] History 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: Reports:: Arrhythmia, Hypertension Denies:: Cancer, Diabetes Mellitus Type 1, Diabetes Mellitus Type 2, MRSA, Seizures *Have you ever received a pneumonia vaccine?: No *Have you received a flu vaccine this season?: No Other 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: Denies: Blood Transfusion Reaction Laterality Cases: Bilateral: Arthroscopy Knee Other Surgeries: Yes: Cholecystectomy, , Tubal Ligation, Other (back surgery 2016, cholecystectomy) Amputation: No Fractures: No - *Social History Smoking Status: Never smoker Tobacco Type: smokeless tobacco Alcohol Intake: never *Occupational Status:: unemployed Housing: house Household Members: spouse *Travel in the last 8 weeks: None Family Hx:: Cancer, Coronary Artery Disease, Diabetes, Heart Attack, Stroke
== END ==
PROVIDERS: Visit Provider Family Medicine
DX: M51.16 Intervertebral disc disorders with radiculopathy, lumbar region (principal); G89.29 Other chronic pain
CPT/HCPCS: 99212; G0463

== ENCOUNTER → 2020-12-15 10:35 | Outpatient (POV) | payer OTHER, SELFPAY ==
[2020-12-15 10:47] VITALS: BP 132/83; PULSE 72; RESP 18; O2SAT 97; BMI 48.2
--- NOTE | 2020-12-15 11:54 | HMH.PAINSOAP ---
[facility] Pain Management SOAP Note Subjective:: Patient is a 50-year-old white female who presents today for follow-up. The patient is being treated for degenerative disc disease lumbar spine with lumbar radiculopathy symptoms. Patient is currently on Percocet 10 mg 1 tablet p.o. 5 times daily and gabapentin 800 mg 1 tablet p.o. 3 times daily. She denies any side effects to the medication. Patient says that she was accused of taking Suboxone . Patient was very concerned and reports that she spent more than $140 for home drug testing due to concerns. She was worried someone was putting medication in her drinks. Patient says that she did come to the clinic and request a repeat drug screen but was denied. Patient is very upset today because she feels that she was wrongfully accused of having medication in her system. At her last visit, the provider did inform the patient that the medication could have been an environmental contamination. Patient's drug screen was positive for a very low dose of Suboxone. [facility] was contacted regarding the level and the clinic was informed that it is likely due to impurity versus environmental contamination. Patient's Irasema #[id number] has been reviewed and is appropriate. Morphine equivalent is 0. Review of Systems General: No recent weight changes, no fever, no sleep disturbances Respiratory: No cough, no shortness of air, no recurring pulmonary infections Cardiovascular/peripheral vascular: No chest pain, no palpitations, no edema, no shortness of breath Gastrointestinal: No new onset incontinence, normal bowel movements reported Genitourinary: No new onset incontinence Musculoskeletal: Chronic low back pain Psychiatric: [Normal mood/affect] Neurological: [Denies weakness in extremities], [denies balance issues] Objective:: Physical exam General: Alert and oriented x3, no acute distress, pleasant and cooperative, [on room air] Lungs: Respirations even and unlabored, symmetrical chest expansion Eyes: PERRL Musculoskeletal: Flexion and extension of lumbar [spine] somewhat guarded secondary to pain, strength in upper and lower extremities [5/5], [antalgic gait noted] Neurological: Speech clear, [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 5 times daily and gabapentin 800 mg 1 tablet p.o. 3 times daily. We will see the patient back in a month for reevaluation of symptoms. Risks and benefits of the medication have been explained in detail to the patient. The patient has been advised to consult with his/her primary care provider and pharmacist regarding drug-drug interaction of medications currently prescribed. Patient has been prescribed a controlled substance after being counseled on the medication, medication safety, and possible side effects. IRASEMA report has been obtained and reviewed prior to prescription and found to be appropriate. Opioid contract was reviewed and signed by the patient, and that they have agreed to all of the terms set forth by our compliance program. Patient has been instructed to contact the clinic with any concerns before the next appointment. Dr. Zelaya has reviewed this note and agrees with this plan of care. This note was dictated using voice recognition software and make contain errors or omissions. [facility] History I have reviewed the patient's past medical history: Yes 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: Reports:: Arrhythmia, Hypertension Denies:: Cancer, Diabetes Mellitus Type 1, Diabetes Mellitus Type 2, MRSA, Seizures *Have you ever received a pneumonia vaccine?: Yes *Have you received a flu vaccine this season?: Yes Other 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: Denies: Blood Transfusion Reaction Laterality Cases: Bilateral: Arthroscopy Knee Other Surgeries: Yes: Cholecystectomy, , Tubal Ligation, Other (back surgery 2016, cholecystectomy
== END ==
PROVIDERS: Visit Provider Clinical Nurse Specialist Family Health
DX: M51.16 Intervertebral disc disorders with radiculopathy, lumbar region (principal)
CPT/HCPCS: 99212; G0463

== ENCOUNTER → 2021-01-12 10:00 | Outpatient (POV) | payer OTHER, SELFPAY ==
[2021-01-12 10:05] VITALS: BP 163/99; PULSE 76; RESP 18; O2SAT 95; BMI 46.5
--- NOTE | 2021-01-12 10:26 | HMH.PAINSOAP ---
[facility] Pain Management SOAP Note Subjective:: Patient is a 50-year-old white female who presents today for medication refills. Patient is having continued low back pain with radiation into her bilateral lower extremities. She does rate her pain a 4 out of 10. She has managed with Percocet 10 mg 1 tablet p.o. 5 times daily and gabapentin 800 mg 1 tablet p.o. 3 times daily. She denies any side effects to the medication. Irasema #[id number] has been reviewed and is appropriate. Drug screen is appropriate. Morphine equivalent is 0. The medication does give the patient up to 60% relief. Review of Systems General: No recent weight changes, no fever, no sleep disturbances Respiratory: No cough, no shortness of air, no recurring pulmonary infections Cardiovascular/peripheral vascular: No chest pain, no palpitations, no edema, no shortness of breath Gastrointestinal: No new onset incontinence, normal bowel movements reported Genitourinary: No new onset incontinence Musculoskeletal: Low back pain with radiation into bilateral lower extremities Psychiatric: [Normal mood/affect] Neurological: [Denies weakness in extremities], [denies balance issues] Objective:: Physical exam General: Alert and oriented x3, no acute distress, pleasant and cooperative, [on room air] Lungs: Respirations even and unlabored, symmetrical chest expansion Eyes: PERRL Musculoskeletal: Flexion and extension of lumbar [spine] somewhat guarded secondary to pain, strength in upper and lower extremities [5/5], [antalgic gait noted] Neurological: Speech clear, [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 3 times daily. We will also continue the patient on Percocet 10 mg 1 tablet p.o. 5 times daily. Patient will get a month medication will be seen back in the clinic in 1 month for reevaluation of symptoms. She has been instructed to contact the clinic if she has any concerns before her next appointment. Risks and benefits of the medication have been explained in detail to the patient. The patient has been advised to consult with his/her primary care provider and pharmacist regarding drug-drug interaction of medications currently prescribed. Patient has been prescribed a controlled substance after being counseled on the medication, medication safety, and possible side effects. IRASEMA report has been obtained and reviewed prior to prescription and found to be appropriate. Opioid contract was reviewed and signed by the patient, and that they have agreed to all of the terms set forth by our compliance program. Patient has been instructed to contact the clinic with any concerns before the next appointment. Dr. Zelaya has reviewed this note and agrees with this plan of care. This note was dictated using voice recognition software and make contain errors or omissions. [facility] History I have reviewed the patient's past medical history: Yes 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: Reports:: Arrhythmia, Hypertension Denies:: Cancer, Diabetes Mellitus Type 1, Diabetes Mellitus Type 2, MRSA, Seizures *Have you ever received a pneumonia vaccine?: No *Have you received a flu vaccine this season?: No Other 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: Denies: Blood Transfusion Reaction Laterality Cases: Bilateral: Arthroscopy Knee Other Surgeries: Yes: Cholecystectomy, , Tubal Ligation, Other (back surgery 2015, cholecystectomy) Amputation: No Fractures: No - *Social History Smoking Status: Never smoker Tobacco Type: smokeless tobacco Alcohol Intake: never *Occupational Status:: unemployed Housing: house Household Members: spouse *Travel in the last 8 weeks: None Family Hx:: Cancer, Coronary Artery Disease, Diabetes, Heart Attack, Stroke
== END ==
PROVIDERS: Visit Provider Clinical Nurse Specialist Family Health
DX: M51.16 Intervertebral disc disorders with radiculopathy, lumbar region (principal)
CPT/HCPCS: 99212; G0463

== ENCOUNTER → 2021-02-09 09:29 | Outpatient (POV) | payer OTHER, SELFPAY ==
[2021-02-09 09:39] VITALS: BP 200/98; PULSE 86; RESP 18; O2SAT 98; BMI 48.4
[2021-02-09 10:35] LABS: Amphetamine/Metha Screen,Urine Negative ng/ml (<1000); Benzodiazepines Screen,Urine Negative ng/ml (<200)
[2021-02-09 10:36] LABS: Barbiturates Screen,Urine Negative ng/ml (<200); Cannabinoid Screen,Urine Negative ng/ml (<50)
[2021-02-09 10:37] LABS: Cocaine Screen,Urine Negative ng/ml (<300)
[2021-02-09 10:38] LABS: Methadone Screen,Urine Negative ng/ml (<300); Opiate Screen,Urine Negative ng/ml (<300)
[2021-02-09 10:39] LABS: Phencyclidine Screen,Urine Negative ng/ml (<25)
--- NOTE | 2021-02-09 10:40 | HMH.PAINSOAP ---
[facility] Pain Management SOAP Note Subjective:: Patient is a 50-year-old white female who presents today for medication refills. She reports that she did have a fall yesterday and fell on her right side. She does not feel she needs any imaging or further studies to the area. She says that this has worsened her pain somewhat today due to the fall. Patient's baseline pain is 5 or 6 out of 10 and today rates her pain a 7 out of 10. We do treat her for continued low back pain and radiation into bilateral lower extremities. She is managed with Percocet 10 mg 1 tablet p.o. 5 times daily and gabapentin 800 mg 1 tablet p.o. 3 times daily. The patient's Irasema #[id number] has been reviewed and is appropriate. Patient's morphine equivalent is 75. Drug screens have been appropriate. Review of Systems General: No recent weight changes, no fever, no sleep disturbances Respiratory: No cough, no shortness of air, no recurring pulmonary infections Cardiovascular/peripheral vascular: No chest pain, no palpitations, no edema, no shortness of breath Gastrointestinal: No new onset incontinence, normal bowel movements reported Genitourinary: No new onset incontinence Musculoskeletal: Low back pain with radiation into right side and bilateral lower extremities Psychiatric: [Normal mood/affect] Neurological: [Denies weakness in extremities], recent fall Objective:: Physical exam General: Alert and oriented x3, no acute distress, pleasant and cooperative Lungs: Respirations even and unlabored, symmetrical chest expansion Eyes: PERRL Musculoskeletal: Flexion and extension of lumbar [spine] somewhat guarded secondary to pain, [antalgic gait noted] Neurological: Speech clear, no gross sensory deficit Assessment:: Degenerative disc disease lumbar spine with lumbar radiculopathy symptoms Plan:: We will refill the patient's Percocet 10 mg 1 tablet p.o. [address] Zelaya. We will continue the patient on gabapentin 800 g 1 tablet p.o. 3 times daily. We will give the patient a month of medication. She has deferred on any imaging status post fall. We will see her back in the clinic in 1 month for reevaluation of symptoms. Patient's morphine equivalent is 75. We will order Narcan in the event of oversedation. She does understand she is at a high risk for oversedation. Risks and benefits of the medication have been explained in detail to the patient. The patient does understand the risk of dependence on the medication when given over a prolonged period. Patient has been advised of risks of oversedation with the prescribed medication. Narcan has been offered to the paitent in the event of oversedation. Patient has been advised that a family member should also be educated regarding administration of Narcan. The patient has been advised to consult with his/her primary care provider and pharmacist regarding drug-drug interaction of medications currently prescribed. Patient has been prescribed a controlled substance after being counseled on the medication, medication safety, and possible side effects. IRASEMA report has been obtained and reviewed prior to prescription and found to be appropriate. Opioid contract was reviewed and signed by the patient, and that they have agreed to all of the terms set forth by our compliance program. Patient has been instructed to contact the clinic with any concerns before the next appointment. Dr. Zelaya has reviewed this note and agrees with this plan of care. This note was dictated using voice recognition software and make contain errors or omissions. [facility] History I have reviewed the patient's past medical history: Yes 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: Reports:: Arrhythmia, Hypertension Denies:: Cancer, Diabetes Mellitus Type 1, Diabetes Mellitus Type 2, MRSA, Seizures *Have you ever received a pneumonia vaccine?: No *Have you received a flu vaccine this season?: No Other 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: Denies: Blood Transfusion [place]
[2021-02-15 16:12] LABS: Opiates Negative (Cutoff=100); Oxycodone (GC/MS) 2536 ng/mL (Cutoff=100); Oxymorphone (GC/MS) 1430 ng/mL (Cutoff=100)
== END ==
PROVIDERS: Visit Provider Clinical Nurse Specialist Family Health
DX: M51.16 Intervertebral disc disorders with radiculopathy, lumbar region (principal); Z79.891 Long term (current) use of opiate analgesic
CPT/HCPCS: 80305; 80361; 80365; 99212; G0463; G0480

== ENCOUNTER 2021-03-05 10:36 | Emergency (ER) | payer OTHER, SELFPAY ==
[2021-03-05 11:00] VITALS: BP 142/86; PULSE 105; RESP 20; TEMP 36.8; O2SAT 97; BMI 46.7
[2021-03-05 11:20] VITALS: BP 142/86; PULSE 105; RESP 18; TEMP 36.8
== END 2021-03-05 11:20 | disposition left against medical advice (07) ==
LOC: UTC 10:46
PROVIDERS: Emergency Provider Nurse Practitioner Family; PCP Family Medicine
DX: Z53.21 Procedure and treatment not carried out due to patient leaving prior to being seen by health care provider (principal)
CPT/HCPCS: C9803; U0003; U0005

== ENCOUNTER → 2021-03-13 08:54 | Outpatient (POV) | payer OTHER, SELFPAY ==
[2021-03-13 09:01] VITALS: BP 128/88; PULSE 76; RESP 20; TEMP 36.4; O2SAT 96; BMI 46.6
--- NOTE | 2021-03-13 09:03 | HMH.PAINSOAP ---
[facility] Pain Management SOAP Note Subjective:: Patient is a 50-year-old white female who presents today for medication refills. Patient says that her pain is worse today due to recently moving in lifting heavy boxes. She rates her pain an 8 out of 10. She is currently managed with Percocet 10 mg 1 tablet p.o. 5 times daily and gabapentin 800 mg 1 tablet p.o. 3 times daily. Patient I did discuss injective therapy versus implanted devices, but she is not interested in interventional therapies at this time. She does report she has tried injective therapy in the past with minimal relief. She and I did discuss that she is at a maximum limit of oral medication dosing. Patient would likely benefit from intrathecal therapy, but has deferred at this time. The patient Irasema number is [id number] morphine equivalent is 75. Patient's pain is primarily in the low back area. Review of Systems General: No recent weight changes, no fever, no sleep disturbances Respiratory: No cough, no shortness of air, no recurring pulmonary infections Cardiovascular/peripheral vascular: No chest pain, no palpitations, no edema, no shortness of breath Gastrointestinal: No new onset incontinence, normal bowel movements reported Genitourinary: No new onset incontinence Musculoskeletal: Low back pain?chronic Psychiatric: [Normal mood/affect] Neurological: [Denies weakness in extremities], [denies balance issues] Objective:: Physical exam General: Alert and oriented x3, no acute distress, pleasant and cooperative Lungs: Respirations even and unlabored, symmetrical chest expansion Eyes: PERRL Musculoskeletal: Flexion and extension of lumbar [spine] somewhat guarded secondary to pain, [antalgic gait noted] Neurological: Speech clear, no gross sensory deficit Assessment:: Degenerative disc disease lumbar spine with lumbar radiculopathy symptoms, worsening low back pain Plan:: Patient I discussed her options today. We will continue her on Percocet 10 mg 1 tablet p.o. 5 times daily and gabapentin 800 mg 1 tablet p.o. 3 times daily. We will give the patient a week of prednisone 20 mg 1 tablet p.o. twice daily. Patient's morphine equivalent is 75. We will order Narcan in the event of oversedation. We will give her a month medication and see her back in the clinic in 1 month. Risks and benefits of the medication have been explained in detail to the patient. The patient does understand the risk of dependence on the medication when given over a prolonged period. Patient has been advised of risks of oversedation with the prescribed medication. Narcan has been offered to the paitent in the event of oversedation. Patient has been advised that a family member should also be educated regarding administration of Narcan. The patient has been advised to consult with his/her primary care provider and pharmacist regarding drug-drug interaction of medications currently prescribed. Patient has been prescribed a controlled substance after being counseled on the medication, medication safety, and possible side effects. IRASEMA report has been obtained and reviewed prior to prescription and found to be appropriate. Opioid contract was reviewed and signed by the patient, and that they have agreed to all of the terms set forth by our compliance program. Patient has been instructed to contact the clinic with any concerns before the next appointment. Dr. Zelaya has reviewed this note and agrees with this plan of care. This note was dictated using voice recognition software and make contain errors or omissions. [facility] History 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: Reports:: Arrhythmia, Hypertension Denies:: Cancer, Diabetes Mellitus Type 1, Diabetes Mellitus Type 2, MRSA, Seizures *Have you ever received a pneumonia vaccine?: No *Have you received a flu vaccine this season?: No Other 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: Denies: Blood Transfusion Reaction Laterality Cases: Bilateral: Arthroscopy Knee Other Surge
== END ==
PROVIDERS: Visit Provider Clinical Nurse Specialist Family Health
DX: M51.16 Intervertebral disc disorders with radiculopathy, lumbar region (principal)
CPT/HCPCS: 99212; G0463

== ENCOUNTER → 2021-04-13 08:52 | Outpatient (POV) | payer OTHER, SELFPAY ==
[2021-04-13 09:04] VITALS: BP 136/81; PULSE 87; RESP 18; O2SAT 97; BMI 48.4
--- NOTE | 2021-04-13 09:37 | HMH.PAINSOAP ---
[facility] Pain Management SOAP Note Subjective:: Patient is a 50-year-old white female who presents today for medication refills. The patient does have chronic low back pain with radiation into her bilateral lower extremities. 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 She is managed with Percocet 10 mg 1 tablet p.o. 5 times daily and gabapentin 800 mg 1 tablet p.o. 3 times daily. The patient has tried injective therapy in the past and has got minimal relief. She is not interested in implanted devices. She has been advised that she is at maximum level of oral medication that we can provide to her in the clinic. She would likely benefit from intrathecal therapy, as we have had multiple discussions concerning this, however, the patient is not interested. Patient is concerned because she has had to pay [id number] for the medication in the past. She has been advised if she does require preauthorization to contact clinic. [facility] #[id number] has been reviewed and is appropriate. Drug screens have been appropriate. Patient's morphine equivalent is 75. She does understand that she is at a high risk for oversedation with her morphine equivalent over 40. She also understands that she is at higher risk for dependence on the medication. Review of Systems General: No recent weight changes, no fever, no sleep disturbances Respiratory: No cough, no shortness of air, no recurring pulmonary infections Cardiovascular/peripheral vascular: No chest pain, no palpitations, no edema, no shortness of breath Gastrointestinal: No new onset incontinence, normal bowel movements reported Genitourinary: No new onset incontinence Musculoskeletal: Chronic low back pain Psychiatric: [Normal mood/affect] Neurological: [Denies weakness in extremities], [denies balance issues] Objective:: Physical exam General: Alert and oriented x3, no acute distress, pleasant and cooperative Lungs: Respirations even and unlabored, symmetrical chest expansion Eyes: PERRL Musculoskeletal: Flexion and extension of lumbar [spine] somewhat guarded secondary to pain, [antalgic gait noted] Neurological: Speech clear, no gross sensory deficit Assessment:: Degenerative disc disease lumbar spine with lumbar radiculopathy symptoms Plan:: At this time we will continue the patient's Percocet 10 mg 1 tablet p.o. 5 times daily and gabapentin 800 mg 1 tablet p.o. 3 times daily. She will get a month medication will be seen back in the clinic in 1 month for further evaluation. Risks and benefits of the medication have been explained in detail to the patient. The patient does understand the risk of dependence on the medication when given over a prolonged period. Patient has been advised of risks of oversedation with the prescribed medication. Narcan has been offered to the paitent in the event of oversedation. Patient has been advised that a family member should also be educated regarding administration of Narcan. The patient has been advised to consult with his/her primary care provider and pharmacist regarding drug-drug interaction of medications currently prescribed. Patient has been prescribed a controlled substance after being counseled on the medication, medication safety, and possible side effects. IRASEMA report has been obtained and reviewed prior to prescription and found to be appropriate. Opioid contract was reviewed and signed by the patient, and that they have agreed to all of the terms set forth by our compliance program. Patient has been instructed to contact the clinic with any concerns before the next appointment. Dr. Zelaya has reviewed this note and agrees with this plan of care. This note was dictated using voice recognition software and make contain errors or omissions. [facility] History 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: Reports:: Arrhythmia, Hypertension Denies:: Cancer, Diabetes Mellitus Type 1, Diabetes Mellitus Type 2, MRSA, Sei
== END ==
PROVIDERS: Visit Provider Clinical Nurse Specialist Family Health
DX: M51.16 Intervertebral disc disorders with radiculopathy, lumbar region (principal)
CPT/HCPCS: 99212; G0463

== ENCOUNTER → 2021-06-01 09:00 | Outpatient (POV) | payer OTHER, SELFPAY ==
[2021-06-01 09:29] VITALS: BP 131/77; PULSE 76; RESP 18; O2SAT 97; BMI 48.2
--- NOTE | 2021-06-01 12:23 | P.CONS_ITS ---
[facility] Pain Management SOAP Note Subjective:: Patient is a very pleasant 50-year-old white female presents today for follow-up and medication refills. She is currently being treated for degenerative disc disease of the lumbar spine and lumbar radiculopathy. She is currently managed with Percocet 10 mg 1 tablet p.o. 5 times daily and gabapentin 800 1 tablet p.o. 3 times a day (but she states she only takes 1 tablet at bedtime and not every day). She states that her current pain regimen is adequately managing her pain symptoms at this time. She denies any side effects to these medications. She is requesting refills on her medications today. She states that her current pain regimen allows her to maintain functionality and allows her to walk as she states her low back and leg pain is so severe. She rates her pain today as a 4 out of 10. Objective:: General: Alert and oriented x3, no acute distress, pleasant and cooperative Lungs: Resps E/U, symmetric chest expansion Eyes: PERRL Musculoskeletal: limited flexion and extension of the lumbar spine secondary to pain. Deep tendon reflexes were normal in bilateral lower extremities. Motor exam was grossly intact in the bilateral lower extremities, antalgic gait noted. Neurological: Speech is clear, marketing research coordinator equal, no gross sensory deficits Assessment:: Degenerative disc disease of the lumbar spine with lumbar radiculopathy Plan:: I discussed with the patient that we will continue and refill her cassette 10 mg 1 tablet p.o. 5 times daily #150 for 1 month supply and gabapentin 800 mg 1 tablet p.o. at bedtime #30 for 1 month supply. We will follow-up with this patient in 1 month for reassessment and medication refills. [facility] #[id number] and prior drug screens were reviewed and appropriate. [facility] History 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: Reports:: Arrhythmia, Hypertension Denies:: Cancer, Diabetes Mellitus Type 1, Diabetes Mellitus Type 2, MRSA, Seizures *Have you ever received a pneumonia vaccine?: No *Have you received a flu vaccine this season?: No Other 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: Denies: Blood Transfusion Reaction Laterality Cases: Bilateral: Arthroscopy Knee Other Surgeries: Yes: Cholecystectomy, , Tubal Ligation, Other (back surgery 2016, cholecystectomy) Amputation: No Fractures: No - *Social History Smoking Status: Never smoker Tobacco Type: smokeless tobacco Alcohol Intake: never *Occupational Status:: unemployed Housing: house Household Members: spouse *Travel in the last 8 weeks: None Family Hx:: Cancer, Coronary Artery Disease, Diabetes, Heart Attack, Stroke
== END ==
PROVIDERS: Visit Provider Anesthesiology Pain Medicine
DX: M51.16 Intervertebral disc disorders with radiculopathy, lumbar region (principal)
CPT/HCPCS: 99212; G0463

== ENCOUNTER → 2021-06-01 10:07 | Outpatient (CLI) | payer OTHER, SELFPAY ==
[2021-06-01 12:29] LABS: Amphetamine/Metha Screen,Urine Negative ng/ml (<1000); Barbiturates Screen,Urine Negative ng/ml (<200)
[2021-06-01 12:31] LABS: Benzodiazepines Screen,Urine Negative ng/ml (<200); Cannabinoid Screen,Urine Negative ng/ml (<50)
[2021-06-01 12:32] LABS: Cocaine Screen,Urine Negative ng/ml (<300)
[2021-06-01 12:33] LABS: Methadone Screen,Urine Negative ng/ml (<300); Opiate Screen,Urine Positive ng/ml (<300)
[2021-06-01 12:35] LABS: Phencyclidine Screen,Urine Negative ng/ml (<25)
[2021-06-16 20:19] LABS: Codeine Positive (.); Hydrocodone Negative (Cutoff=100); Hydromorphone Negative (Cutoff=100); Morphine Negative (Cutoff=100); Opiates Positive (.); Oxycodone (GC/MS) >3000 ng/mL (Cutoff=100); Oxymorphone (GC/MS) >3000 ng/mL (Cutoff=100)
== END ==
PROVIDERS: Visit Provider Anesthesiology
DX: Z79.891 Long term (current) use of opiate analgesic (principal)
CPT/HCPCS: 80305; 80361; 80365; G0480

== ENCOUNTER → 2021-06-26 09:09 | Outpatient (POV) | payer OTHER, SELFPAY ==
[2021-06-26 09:21] VITALS: BP 110/70; PULSE 84; RESP 20; TEMP 36.3; O2SAT 95; BMI 46.6
--- NOTE | 2021-06-26 09:28 | HMH.PAINSOAP ---
[facility] Pain Management SOAP Note Subjective:: This patient is a very pleasant 50-year-old white female that presents to our clinic today for medication refills. She is currently being treated for degenerative disc disease lumbar spine multilevels with radiculopathy bilateral legs. She is currently being managed with Percocet 10 mg 1 p.o. 5 times daily. Gabapentin 800 mg 1 p.o. 3 times daily. However, patient is complaining that gabapentin makes her dizzy and foggy. Patient has already decreased her medication by 50%. Patient states she is continuing to be foggy. I suggest we discontinue the gabapentin. She agrees. She states her current pain medicine is adequately managing her pain symptoms at this time. She denies any side effects from the pain medication. She is requesting refills on her Percocet today. She states her current pain medication allows her to maintain functionality and active daily living. She is walking with her grandbabies and great grandbabies. She rates her pain today 4/10. Objective:: General: Alert and oriented x3 no acute distress. Flexion extension of the lumbar spine somewhat guarded secondary to pain. Deep tendon reflexes are normal. Motor exam is intact bilateral lower extremities. Antalgic gait noted. There is no gross sensory deficit. Assessment:: This disease number spine multiple levels. Bilateral leg radiculopathy. Plan:: We will discontinue her gabapentin. Patient has already decreased her gabapentin by 50% and still having some issues with being lightheaded. Fogginess. We will continue Percocet 10 mg 5 times daily. We will give her a 1 month supply. Patient return in 1 month for reassessment and medication refills. [facility] [phone] has been reviewed. [facility] History 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: Reports:: Arrhythmia, Hypertension Denies:: Cancer, Diabetes Mellitus Type 1, Diabetes Mellitus Type 2, MRSA, Seizures *Have you ever received a pneumonia vaccine?: Yes *Have you received a flu vaccine this season?: No Other 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: Denies: Blood Transfusion Reaction Laterality Cases: Bilateral: Arthroscopy Knee Other Surgeries: Yes: Cholecystectomy, , Tubal Ligation, Other (back surgery 2016, cholecystectomy) Amputation: No Fractures: No - *Social History Smoking Status: Never smoker Tobacco Type: smokeless tobacco Alcohol Intake: never *Occupational Status:: other Housing: house Household Members: spouse *Travel in the last 8 weeks: None Family Hx:: Cancer, Coronary Artery Disease, Diabetes, Heart Attack, Stroke
== END ==
PROVIDERS: Visit Provider Nurse Anesthetist, Certified Registered
DX: M51.16 Intervertebral disc disorders with radiculopathy, lumbar region (principal)
CPT/HCPCS: 99212; G0463

== ENCOUNTER → 2021-07-27 09:04 | Outpatient (POV) | payer OTHER, SELFPAY ==
[2021-07-27 09:10] VITALS: BP 128/89; PULSE 76; RESP 18; TEMP 36.3; O2SAT 96; BMI 47.1
--- NOTE | 2021-07-27 09:18 | HMH.PAINSOAP ---
[facility] Pain Management SOAP Note Subjective:: Patient is a pleasant 51-year-old female but in who is here for medication refill and follow-up. Patient is currently being treated for degenerative disc disease of the lumbar spine with lumbar radiculopathy symptoms. Patient is being managed with Percocet 10 mg 5 times a day. Patient denies any side effects from the medications. Patient denies any changes to the location and type of pain. Patient states that this is adequately helping manage their pain. Rates pain as 7 out of 10. [facility] number [id number] with an active morphine equivalent 75. Drug screens have been reviewed and appropriate. We were also writing gabapentin 800 mg 3 times a day for this patient. Patient states that she was feeling fogginess whenever she takes this medication. She even decreased her intake by 50% and still had foggy issues. She has since stopped taking this medication. We will not refill this medication today. Review of Systems: General: No recent weight changes, no fever, no sleep disturbances Respiratory: No cough, no shortness of air, no recurring pulmonary infections Cardiovascular/peripheral vascular: No chest pain, no palpitations, no edema, no shortness of breath Gastrointestinal: No new onset incontinence, normal bowel movements reported Genitourinary: No new onset incontinence Musculoskeletal: Low back pain Psychiatric: [Normal mood/affect] Neurological: [Denies weakness in extremities], [denies balance issues] Objective:: Physical Exam: General: Alert and oriented x3, no acute distress, pleasant and cooperative, [on room air] Lungs: Respirations even and unlabored, symmetrical chest expansion Eyes: PERRL Musculoskeletal: Flexion and extension of lumbar [spine] somewhat guarded secondary to pain, [antalgic gait noted] Neurological: Speech clear, no gross sensory deficit Assessment:: Degenerative disc disease of lumbar spine with lumbar radiculopathy symptoms Plan:: We will continue the patient's Percocet 10 mg 5 times a day. We will provide the patient with 1 month of refills. We would like to see the patient back in 1 month for follow-up and reevaluation of chronic pain syndrome. I will start the patient on duloxetine 60 mg daily to help with some of the nerve pain. Patient has been advised of risks of oversedation with the prescribed medication. Narcan has been offered to the patient in the event of oversedation. Patient has been advised that a family member should also be educated regarding administration of Narcan. Patient has been instructed to contact the clinic with any concerns before the next appointment. Dr. Zelaya has reviewed this note and agrees with this plan of care. This note was dictated using voice recognition software and make contain errors or omissions. [facility] History 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: Reports:: Arrhythmia, Hypertension Denies:: Cancer, Diabetes Mellitus Type 1, Diabetes Mellitus Type 2, MRSA, Seizures *Have you ever received a pneumonia vaccine?: No *Have you received a flu vaccine this season?: No Other 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: Denies: Blood Transfusion Reaction Laterality Cases: Bilateral: Arthroscopy Knee Other Surgeries: Yes: Cholecystectomy, , Tubal Ligation, Other (back surgery 2016, cholecystectomy) Amputation: No Fractures: No - *Social History Smoking Status: Never smoker Tobacco Type: smokeless tobacco Alcohol Intake: never *Occupational Status:: unemployed Housing: house Household Members: spouse *Travel in the last 8 weeks: None Family Hx:: Cancer, Coronary Artery Disease, Diabetes, Heart Attack, Stroke
== END ==
PROVIDERS: Visit Provider Student in an Organized Health Care Education/Training Program
DX: M51.16 Intervertebral disc disorders with radiculopathy, lumbar region (principal)
CPT/HCPCS: 99212; G0463

== ENCOUNTER → 2021-08-24 09:14 | Outpatient (POV) | payer OTHER, SELFPAY ==
[2021-08-24 09:41] VITALS: BP 134/86; PULSE 74; RESP 18; TEMP 36.4; O2SAT 96; BMI 47.0
--- NOTE | 2021-08-24 10:10 | P.CONS_ITS ---
[facility] Pain Management SOAP Note Subjective:: Patient is a pleasant 51-year-old female who is here for medication refill and follow-up. Patient is currently being treated for degenerative disc disease of lumbar spine with lumbar radiculopathy symptoms. Patient is being managed with Percocet 10 mg 5 times a day. Patient denies any side effects from the medications. Patient denies any changes to the location and type of pain. Patient states that this is adequately helping manage their pain. Rates pain as 9 out of 10. [facility] number [phone] with an active morphine equivalent 75. Drug screens have been reviewed and appropriate. When I last saw this patient, she was also taking gabapentin 800 mg 3 times a day. She states that this was making her foggy. I have discussed with her that she can slowly taper herself off this medication. We will not refill this medication this month. Review of Systems: General: No recent weight changes, no fever, no sleep disturbances Respiratory: No cough, no shortness of air, no recurring pulmonary infections Cardiovascular/peripheral vascular: No chest pain, no palpitations, no edema, no shortness of breath Gastrointestinal: No new onset incontinence, normal bowel movements reported Genitourinary: No new onset incontinence Musculoskeletal: Low back pain Psychiatric: [Normal mood/affect] Neurological: [Denies weakness in extremities], [denies balance issues] Objective:: Physical Exam: General: Alert and oriented x3, no acute distress, pleasant and cooperative Lungs: Respirations even and unlabored, symmetrical chest expansion Eyes: PERRL Musculoskeletal: Flexion and extension of lumbar [spine] somewhat guarded secondary to pain, [antalgic gait noted] Neurological: Speech clear, no gross sensory deficit Assessment:: Degenerative disc disease of lumbar spine with lumbar radiculopathy symptoms Plan:: We will continue the patient's Percocet 10 mg 5 times a day. We will provide the patient with 1 month of refills. We would like to see the patient back in 1 month for follow-up and reevaluation of chronic pain syndrome. I will try the patient on duloxetine 60 mg daily to see if this would help with some of her neuropathic pains. We will follow with the patient in 1 month Patient has been advised of risks of oversedation with the prescribed medication. Narcan has been offered to the patient in the event of oversedation. Patient has been advised that a family member should also be educ ated regarding administration of Narcan. Patient has been instructed to contact the clinic with any concerns before the next appointment. Dr. Zelaya has reviewed this note and agrees with this plan of care. This note was dictated using voice recognition software and make contain errors or omissions. [facility] History 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: Reports:: Arrhythmia, Hypertension Denies:: Cancer, Diabetes Mellitus Type 1, Diabetes Mellitus Type 2, MRSA, Seizures *Have you ever received a pneumonia vaccine?: No *Have you received a flu vaccine this season?: No Other 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: Denies: Blood Transfusion Reaction Laterality Cases: Bilateral: Arthroscopy Knee Other Surgeries: Yes: Cholecystectomy, , Tubal Ligation, Other (back surgery 2016, cholecystectomy) Amputation: No Fractures: No - *Social History Smoking Status: Never smoker Tobacco Type: smokeless tobacco Alcohol Intake: never *Occupational Status:: unemployed Housing: house Household Members: spouse *Travel in the last 8 weeks: None Family Hx:: Cancer, Coronary Artery Disease, Diabetes, Heart Attack, Stroke
== END ==
PROVIDERS: Visit Provider Student in an Organized Health Care Education/Training Program
DX: M51.16 Intervertebral disc disorders with radiculopathy, lumbar region (principal)
CPT/HCPCS: 99212; G0463

== ENCOUNTER → 2021-08-24 09:41 | Outpatient (CLI) | payer OTHER, SELFPAY ==
[2021-08-24 10:51] LABS: Amphetamine/Metha Screen,Urine Negative ng/ml (<1000); Barbiturates Screen,Urine Negative ng/ml (<200)
[2021-08-24 10:52] LABS: Benzodiazepines Screen,Urine Negative ng/ml (<200)
[2021-08-24 10:53] LABS: Cannabinoid Screen,Urine Negative ng/ml (<50); Cocaine Screen,Urine Negative ng/ml (<300)
[2021-08-24 10:54] LABS: Methadone Screen,Urine Negative ng/ml (<300); Opiate Screen,Urine Positive ng/ml (<300)
[2021-08-24 10:55] LABS: Phencyclidine Screen,Urine Negative ng/ml (<25)
[2021-09-05 11:31] LABS: Opiates Negative (Cutoff=100); Oxycodone (GC/MS) >3000 ng/mL (Cutoff=100); Oxymorphone (GC/MS) 1327 ng/mL (Cutoff=100)
== END ==
PROVIDERS: Visit Provider Family Medicine
DX: Z79.891 Long term (current) use of opiate analgesic (principal)
CPT/HCPCS: 80305; 80361; 80365; G0480

== ENCOUNTER → 2021-09-21 08:30 | Outpatient (POV) | payer OTHER, SELFPAY ==
[2021-09-21 08:44] VITALS: BP 148/93; PULSE 80; RESP 18; TEMP 36.3; O2SAT 98; BMI 48.1
--- NOTE | 2021-09-21 08:51 | HMH.PAINSOAP ---
[facility] Pain Management SOAP Note Subjective:: Patient is a pleasant 51-year-old female who is here for medication refill and follow-up. Patient is currently being treated for degenerative disease of lumbar spine with lumbar radiculopathy symptoms. Patient is being managed with Percocet 10 mg 5 times a day. Patient denies any side effects from the medications. Patient denies any changes to the location and type of pain. Patient states that this is adequately helping manage their pain. Rates pain as 5 out of 10. [facility] number [phone] with an active morphine equivalent 75. Drug screens have been reviewed and appropriate. Patient was prescribed gabapentin 800 mg 3 times a day. She has stopped taking this medication because it was making her groggy. We have not been refilling this medication. I did start her on the duloxetine 60 mg daily for neuropathic pain. She has not started taking this medication yet. Review of Systems: General: No recent weight changes, no fever, no sleep disturbances Respiratory: No cough, no shortness of air, no recurring pulmonary infections Cardiovascular/peripheral vascular: No chest pain, no palpitations, no edema, no shortness of breath Gastrointestinal: No new onset incontinence, normal bowel movements reported Genitourinary: No new onset incontinence Musculoskeletal: Low back pain Psychiatric: [Normal mood/affect] Neurological: [Denies weakness in extremities], [denies balance issues] Objective:: Physical Exam: General: Alert and oriented x3, no acute distress, pleasant and cooperative Lungs: Respirations even and unlabored, symmetrical chest expansion Eyes: PERRL Musculoskeletal: Flexion and extension of lumbar [spine] somewhat guarded secondary to pain, [antalgic gait noted] Neurological: Speech clear, no gross sensory deficit Assessment:: Degenerative disc disease of the lumbar spine with lumbar radiculopathy symptoms Plan:: We will continue the patient's Percocet 10 mg 5 times a day. We will provide the patient with 1 month of refills. We would like to see the patient back in 1month for follow-up and reevaluation of chronic pain syndrome. Patient has been advised of risks of oversedation with the prescribed medication. Narcan has been offered to the patient in the event of oversedation. Patient has been advised that a family member should also be educated regarding administration of Narcan. Patient has been instructed to contact the clinic with any concerns before the next appointment. Dr. Zelaya has reviewed this note and agrees with this plan of care. This note was dictated using voice recognition software and make contain errors or omissions. [facility] History 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: Reports:: Arrhythmia, Hypertension Denies:: Cancer, Diabetes Mellitus Type 1, Diabetes Mellitus Type 2, MRSA, Seizures *Have you ever received a pneumonia vaccine?: No *Have you received a flu vaccine this season?: No Other 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: Denies: Blood Transfusion Reaction Laterality Cases: Bilateral: Arthroscopy Knee Other Surgeries: Yes: Cholecystectomy, , Tubal Ligation, Other (back surgery 2016, cholecystectomy) Amputation: No Fractures: No - *Social History Smoking Status: Never smoker Tobacco Type: smokeless tobacco Alcohol Intake: never *Occupational Status:: employed Housing: house Household Members: spouse *Travel in the last 8 weeks: None Family Hx:: Cancer, Coronary Artery Disease, Diabetes, Heart Attack, Stroke
== END ==
PROVIDERS: Visit Provider Student in an Organized Health Care Education/Training Program
DX: M51.16 Intervertebral disc disorders with radiculopathy, lumbar region (principal)
CPT/HCPCS: 99212; G0463

== ENCOUNTER → 2021-10-17 08:35 | Outpatient (POV) | payer OTHER, SELFPAY ==
[2021-10-17 09:09] VITALS: BP 144/90; PULSE 68; RESP 18; TEMP 36.6; O2SAT 97; BMI 46.7
--- NOTE | 2021-10-17 09:16 | P.CONS_ITS ---
[facility] Pain Management SOAP Note Subjective:: Patient is a pleasant 51-year-old female who is here for medication refill and follow-up. Patient is currently being treated for degenerative disc disease of lumbar spine with lumbar radiculopathy symptoms. Patient is being managed with Percocet 10 mg 5 times a day. Patient denies any side effects from the medications. Patient denies any changes to the location and type of pain. Patient states that this is adequately helping manage their pain. Rates pain as 4 out of 10. [facility] number [phone] with an active morphine equivalent 75. Drug screens have been reviewed and appropriate. We see prescribe this patient gabapentin 800 mg 3 times a day. She has stopped taking this medication because it was making her too groggy. I have tried to start this patient on duloxetine 60 mg daily for neuropathic pain. Patient is not interested in starting this medication. We will not continue this medica tion. Review of Systems: General: No recent weight changes, no fever, no sleep disturbances Respiratory: No cough, no shortness of air, no recurring pulmonary infections Cardiovascular/peripheral vascular: No chest pain, no palpitations, no edema, no shortness of breath Gastrointestinal: No new onset incontinence, normal bowel movements reported Genitourinary: No new onset incontinence Musculoskeletal: Low back pain Psychiatric: [Normal mood/affect] Neurological: [Denies weakness in extremities], [denies balance issues] Objective:: Physical Exam: General: Alert and oriented x3, no acute distress, pleasant and cooperative Lungs: Respirations even and unlabored, symmetrical chest expansion Eyes: PERRL Musculoskeletal: Flexion and extension of lumbar [spine] somewhat guarded secondary to pain, [antalgic gait noted] Neurological: Speech clear, no gross sensory deficit Assessment:: Degenerative disc disease of lumbar spine with lumbar radiculopathy symptoms Plan:: We will continue the patient's Percocet 10 mg 5 times a day. We will provide the patient with 1 month of refills. We would like to see the patient back in 1 month for follow-up and reevaluation of chronic pain syndrome. Patient has been advised of risks of oversedation with the prescribed medication. Narcan has been offered to the patient in the event of oversedation. Patient has been advised that a family member should also be educated regarding administration of Narcan. Patient has been instructed to contact the clinic with any concerns before the next appointment. Dr. Zelaya has reviewed this note and agrees with this plan of care. This note was dictated using voice recognition software and make contain errors or omissions. [facility] History 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: Reports:: Arrhythmia, Hypertension Denies:: Cancer, Diabetes Mellitus Type 1, Diabetes Mellitus Type 2, MRSA, Seizures *Have you ever received a pneumonia vaccine?: Yes *Have you received a flu vaccine this season?: No Other 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: Denies: Blood Transfusion Reaction Laterality Cases: Bilateral: Arthroscopy Knee Other Surgeries: Yes: Cholecystectomy, , Tubal Ligation, Other (back surgery 2016, cholecystectomy) Amputation: No Fractures: No - *Social History Smoking Status: Never smoker Tobacco Type: smokeless tobacco Alcohol Intake: never *Occupational Status:: other Housing: house Household Members: spouse *Travel in the last 8 weeks: None Family Hx:: Cancer, Coronary Artery Disease, Diabetes, Heart Attack, Stroke
== END ==
PROVIDERS: Visit Provider Student in an Organized Health Care Education/Training Program
DX: M51.16 Intervertebral disc disorders with radiculopathy, lumbar region (principal)
CPT/HCPCS: 99212; G0463

== ENCOUNTER → 2021-11-16 10:45 | Outpatient (POV) | payer OTHER, SELFPAY ==
[2021-11-16 10:55] VITALS: BP 127/87; PULSE 91; RESP 20; O2SAT 95; BMI 46.6
--- NOTE | 2021-11-16 11:01 | HMH.PAINSOAP ---
[facility] Pain Management SOAP Note Subjective:: Patient patient is a pleasant 51-year-old female who presents today for medication refill and follow-up. We are currently treating the patient for degenerative disc disease of lumbar spine with lumbar radiculopathy symptoms. She is rating her pain a 5 out of 10 today. She states the pain is in her bilateral hips and describes it as an aching sensation that is worse with activity. We are currently managing the patient with Percocet 10 mg 5 times a day. She denies any side effects from this medication. She denies any change to the location or the type of pain she experiences. She does state that this medication is adequately helping manage her pain. Patient has been on gabapentin before however did not like how it made her feel. Her Evans is [phone]. It has been reviewed and appropriate. Review of Systems: General: No recent weight changes, no fever, no sleep disturbances Respiratory: No cough, no shortness of air, no recurring pulmonary infections Cardiovascular/peripheral vascular: No chest pain, no palpitations, no edema, no shortness of breath Gastrointestinal: No new onset incontinence, normal bowel movements reported Genitourinary: No new onset incontinence Musculoskeletal: Low back pain, bilateral hip pain Psychiatric: [Normal mood/affect] Neurological: [Denies weakness in extremities], [denies balance issues] Objective:: Physical Exam: General: Alert and oriented x3, no acute distress, pleasant and cooperative Lungs: Respirations even and unlabored, symmetrical chest expansion Eyes: PERRL Musculoskeletal: Flexion and extension of lumbar [spine] somewhat guarded secondary to pain, [antalgic gait noted] Neurological: Speech clear, no gross sensory deficit Assessment:: Degenerative disc disease of lumbar spine with lumbar radiculopathy symptoms bilateral hip pain Plan:: Patient has significant pain in her low back and bilateral hips. We will continue the patient's Percocet 10 mg 5 times a day. We will provide this patient a 1 month supply. I will also order the patient a compounding cream at today's visit. We will see the patient back in 1 month for follow-up and reevaluation symptoms. Patient has been instructed to contact the clinic with any concerns before the next appointment. Dr. Zelaya has reviewed this note and agrees with this plan of care. This note was dictated using voice recognition software and make contain errors or omissions. [facility] History I have reviewed the patient's past medical history: Yes 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: Reports:: Arrhythmia, Hypertension Denies:: Cancer, Diabetes Mellitus Type 1, Diabetes Mellitus Type 2, MRSA, Seizures *Have you ever received a pneumonia vaccine?: No *Have you received a flu vaccine this season?: No Other 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: Denies: Blood Transfusion Reaction Laterality Cases: Bilateral: Arthroscopy Knee Other Surgeries: Yes: Cholecystectomy, , Tubal Ligation, Other (back surgery 2015, cholecystectomy) Amputation: No Fractures: No - *Social History Smoking Status: Never smoker Tobacco Type: smokeless tobacco Alcohol Intake: never *Occupational Status:: other Housing: house Household Members: spouse *Travel in the last 8 weeks: None Family Hx:: Cancer, Coronary Artery Disease, Diabetes, Heart Attack, Stroke
[2021-11-22 10:15] LABS: Acetone <.010 g/dL (0.000-0.010); Butalbital <1 ug/mL (1-10); Chlordiazepoxide <0.1 ug/mL (0.1-0.9); Diazepam <0.1 ug/mL (0.1-0.9); Ethanol <.010 g/dL (0.000-0.010); Isopropanol <.010 g/dL (0.000-0.010); Pentobarbital <1 ug/mL (1-5)
[2021-12-01 11:14] LABS: Oxycodone Cofirmation WB Positive (.); Oxymorphone GS/MS Negative (.)
== END ==
PROVIDERS: Student in an Organized Health Care Education/Training Program; PCP Family Medicine; Visit Provider Nurse Practitioner Family
DX: M51.16 Intervertebral disc disorders with radiculopathy, lumbar region (principal); M25.551 Pain in right hip; M25.552 Pain in left hip
CPT/HCPCS: 36415; 80306; 80307; 99212; G0463

== ENCOUNTER → 2021-12-14 09:22 | Outpatient (POV) | payer OTHER, SELFPAY ==
[2021-12-14 09:35] VITALS: BP 154/80; PULSE 70; RESP 18; TEMP 36.8; O2SAT 98; BMI 45.1
--- NOTE | 2021-12-14 09:40 | EXP.PAIN.SOA ---
[facility] Pain Management SOAP Note Subjective:: Patient is a pleasant 51-year-old female who presents today for follow-up and medication refill. We are currently treating the patient for degenerative disc disease of lumbar spine with lumbar radiculopathy symptoms. Today she rates her pain a 5 out of 10. She states the pain is primarily in her low back and describes it as an aching sensation that is worse with increased activity. We are currently managing the patient on Percocet 10 mg 5 times a day. She denies any side effects from these medication. She states this medication is adequately managing her pain. She is requesting a refill at today's visit. She states that next month she is leaving on vacation and is requesting her medication to be filled on the rather than the . Patient does also use compounding cream that she says provides significant improvement of her symptoms. Her Evans is [phone]. It has been reviewed and appropriate. Review of Systems: General: No recent weight changes, no fever, no sleep disturbances Respiratory: No cough, no shortness of air, no recurring pulmonary infections Cardiovascular/peripheral vascular: No chest pain, no palpitations, no edema, no shortness of breath Gastrointestinal: No new onset incontinence, normal bowel movements reported Genitourinary: No new onset incontinence Musculoskeletal: Low back pain Psychiatric: [Normal mood/affect] Neurological: [Denies weakness in extremities], [denies balance issues] Objective:: Physical Exam: General: Alert and oriented x3, no acute distress, pleasant and cooperative Lungs: Respirations even and unlabored, symmetrical chest expansion Eyes: PERRL Musculoskeletal: Flexion and extension of lumbar [spine] somewhat guarded secondary to pain, [antalgic gait noted] Neurological: Speech clear, no gross sensory deficit Assessment:: Degenerative disc disease of lumbar spine with lumbar radiculopathy symptoms Plan:: Patient continues to have significant pain along her low back. I will refill the patient's Percocet 10 mg 5 times a day and provide a 1 month supply of this medication and will order this refill to start on January 09. Patient will return to clinic in 1 month for follow-up and reevaluation of symptoms. Patient has been advised of risks of oversedation with the prescribed medication. Narcan has been offered to the patient in the event of oversedation. Patient has been advised that a family member should also be educated regarding administration of Narcan. Patient has been instructed to contact the clinic with any concerns before the next appointment. Dr. Zelaya has reviewed this note and agrees with this plan of care. This note was dictated using voice recognition software and make contain errors or omissions. PFSH PFSH Social History Smoking Status: Never smoker second hand exposure: No alcohol intake: never current occupational status: other household members: spouse housing: house current occupational exposures/hazards: No caffeine: Yes
== END | disposition home or self-care (01) ==
PROVIDERS: PCP Family Medicine; Visit Provider Nurse Practitioner Family
DX: M51.16 Intervertebral disc disorders with radiculopathy, lumbar region (principal)
CPT/HCPCS: 99212; G0463

== ENCOUNTER → 2022-01-15 09:20 | Outpatient (POV) | payer OTHER, SELFPAY ==
[2022-01-15 09:30] VITALS: BP 143/89; PULSE 70; RESP 18; TEMP 36.3; O2SAT 100; BMI 45.3
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
[2022-01-15 10:36] LABS: Phencyclidine Screen,Urine Negative ng/ml (<25)
[2022-01-15 10:44] LABS: Amphetamine/Metha Screen,Urine Negative ng/ml (<1000)
[2022-01-15 10:45] LABS: Barbiturates Screen,Urine Negative ng/ml (<200); Benzodiazepines Screen,Urine Negative ng/ml (<200)
[2022-01-15 10:46] LABS: Cannabinoid Screen,Urine Negative ng/ml (<50)
[2022-01-15 10:47] LABS: Cocaine Screen,Urine Negative ng/ml (<300); Methadone Screen,Urine Negative ng/ml (<300)
[2022-01-15 10:49] LABS: Opiate Screen,Urine Negative ng/ml (<300)
[2022-01-20 12:09] LABS: Opiates Negative (Cutoff=100); Oxycodone (GC/MS) 2006 ng/mL (Cutoff=100); Oxymorphone (GC/MS) 503 ng/mL (Cutoff=100)
== END | disposition home or self-care (01) ==
PROVIDERS: Visit Provider Nurse Practitioner Family
DX: M51.16 Intervertebral disc disorders with radiculopathy, lumbar region (principal); Z79.899 Other long term (current) drug therapy
CPT/HCPCS: 80305; 80361; 80365; 99212; G0463; G0480

== ENCOUNTER → 2022-02-19 09:27 | Outpatient (POV) | payer OTHER, SELFPAY ==
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
[2022-02-19 09:54] VITALS: BP 123/67; PULSE 68; RESP 18; TEMP 36.6; O2SAT 97; BMI 47.0
== END | disposition home or self-care (01) ==
PROVIDERS: Visit Provider Nurse Practitioner Family
DX: M51.16 Intervertebral disc disorders with radiculopathy, lumbar region (principal); M46.1 Sacroiliitis, not elsewhere classified; Z79.899 Other long term (current) drug therapy
CPT/HCPCS: 99212; G0463

== ENCOUNTER 2022-03-02 08:06 | Day surgery (SDC) | payer OTHER, SELFPAY ==
[2022-03-02 08:08] VITALS: BP 99/64; PULSE 74; RESP 18; TEMP 36.6; O2SAT 100; BMI 46.6
[2022-03-02 08:23] VITALS: BP 156/108; PULSE 74; RESP 18; O2SAT 97
[2022-03-02 08:26] VITALS: BP 125/56; PULSE 70
--- NOTE | 2022-03-02 08:31 | EXP.PAIN.PRO ---
Procedure Date: 03/02/22 Time: 08:15 Anesthesiologist:: Kyle Flores CRNA Complications:: None Pre-procedure Diagnosis:: Right sacroiliitis Post-procedure Diagnosis:: Same Indications for Procedure:: Patient is a pleasant 51-year-old female that comes our clinic today for right sacroiliac joint injection. She has extreme point tenderness over the right SI joint upon examination. She rates the pain 8/10. Procedure Details:: Procedure: Right sacroliliac joint injection under fluoroscopy Informed consent was obtained and the risk and benefits of the procedure were explained to the patient.~ The patient was taken to the procedure room and noninvasive monitors were placed including noninvasive blood pressure cuff and pulse oximeter.~ The patient was placed prone on the procedure table.~ The~ right hip was cleansed using Betadine as a cleansing solution.~ C-arm fluorosocpy was used to view the right SI joint.~ The skin and subcutaneous tissues were anesthetized using Lidocaine 1.5% and a 25-gauge needle.~ After this, a 22-gauge spinal needle was inserted under fluoroscopic guidance into the inferior aspect of the right SI joint.~ Omnipaque dye was injected and a good spread was seen throughout the joint.~ After this, approximately 5 mL of bupivacaine 0.25% and Depo-Medrol 40 mg was incrementally injected into the sacroiliac joint.~ The patient tolerated the procedure well with no complications.~ The patient was observed in the Pain Clinic, then discharged home neurologically intact.~ Plan and Disposition:: Patient was discharged without incident.
== END 2022-03-02 08:28 | disposition home or self-care (01) ==
LOC: SC.PAINP 08:06
PROVIDERS: PCP Family Medicine; Visit Provider Nurse Anesthetist, Certified Registered
DX: M46.1 Sacroiliitis, not elsewhere classified (principal)
CPT/HCPCS: 27096; G0260; J1040

== ENCOUNTER → 2022-03-19 08:41 | Outpatient (POV) | payer OTHER, SELFPAY ==
--- NOTE | 2022-03-19 08:58 | EXP.PAIN.SOA ---
[facility] Pain Management SOAP Note Subjective:: Patient is a pleasant 51-year-old female who presents today for follow-up of right SI injection on 03/02/2022. We are currently treating the patient for degenerative disc disease of lumbar spine with lumbar radiculopathy symptoms, sacroiliitis. Today patient states that she has had at least 50% improvement following this injection and states that it lasted approximately 2-1/2 weeks. Today the patient rates her pain a 5 out of 10. She states the pain is all in her low back along her right side that radiates down her right leg. Patient denies any new trauma or injury. Patient denies any change location or type of pain she experiences. Patient describes this as a aching, throbbing sensation that is worse with increased activity. Patient also states that she has issues with prolonged walking, standing or sitting due to the pain. Patient states she continues to use her heating pad as needed to help with her pain symptoms. Patient is currently managed with Percocet 10 mg 5 times a day. Patient denies any side effects from this medication. She states this medication does adequately manage her pain symptoms. She is also prescribed compounding cream that provides additional short-term relief. Her Evans is [id number]. It has been reviewed and appropriate. Review of Systems: General: No recent weight changes, no fever, no sleep disturbances Respiratory: No cough, no shortness of air, no recurring pulmonary infections Cardiovascular/peripheral vascular: No chest pain, no palpitations, no edema, no shortness of breath Gastrointestinal: No new onset incontinence, normal bowel movements reported Genitourinary: No new onset incontinence Musculoskeletal: Low back pain, right leg pain Psychiatric: [Normal mood/affect] Neurological: [Denies weakness in extremities], [denies balance issues] Objective:: Physical Exam: General: Alert and oriented x3, no acute distress, pleasant and cooperative Lungs: Respirations even and unlabored, symmetrical chest expansion Eyes: PERRL Musculoskeletal: Flexion and extension of lumbar [spine] somewhat guarded secondary to pain, [antalgic gait noted] point tenderness along right SI and right Irina's, Cordell's, Gaenslen's, compression and distraction exam Neurological: Speech clear, no gross sensory deficit Assessment:: Degenerative disc disease of lumbar spine with lumbar radiculopathy symptoms, sacroiliitis Plan:: Patient had significant improvement of her pain symptoms following her last SI injection however at today's visit she is going back towards her baseline. Patient did have limited range of motion of her lumbar spine and point tenderness along her right SI as well as positive right Irina's, Cordell's, Gaenslen's and compression exam. I have discussed with the patient that she may benefit from future RFA to her SI joint as well as repeat SI injections. Risk and benefits were discussed with the patient. She would like to proceed forward with a repeat right SI injection. Patient does not need refills at this time. We will schedule her for a right SI injection. Patient has been instructed to contact the clinic with any concerns before the next appointment. Dr. Zelaya has reviewed this note and agrees with this plan of care. This note was dictated using voice recognition software and make contain errors or omissions. [facility] Disclaimer: The information contained in this section may have been updated after the patient was seen, as this information can be updated by other users. 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 (Updated 03/02/22 @ 08:16 by Jeni Cooper RN) Atrial fibrillation History of back pain Hyperlipidemia Hypertension Sleep apnea Family History (Updated 03/02/22 @ 08:16 by Jeni Cooper RN) Other Family history of cancer Family history of diabetes mellitus type II Family history of myocardial infarction Social History (Updated 03/02/22 @ 08:18 by Jeni Cooper RN) Smoking Stat
[2022-03-19 09:06] VITALS: BP 134/67; PULSE 80; RESP 18; O2SAT 98; BMI 47.5
== END ==
PROVIDERS: Visit Provider Nurse Practitioner Family
DX: M51.16 Intervertebral disc disorders with radiculopathy, lumbar region (principal); M46.1 Sacroiliitis, not elsewhere classified; Z79.899 Other long term (current) drug therapy
CPT/HCPCS: 99212; G0463

== ENCOUNTER → 2022-04-13 08:54 | Day surgery (SDC) | payer OTHER, SELFPAY ==
[2022-04-13 09:12] VITALS: BP 146/99; PULSE 74; RESP 20; O2SAT 96; BMI 47.0
--- NOTE | 2022-04-13 09:16 | EXP.PAIN.SOA ---
[facility] Pain Management SOAP Note Subjective:: Patient is a pleasant 51-year-old female who presents today for right SI denial. We are currently treating the patient for degenerative disc disease of lumbar spine with lumbar radiculopathy symptoms, sacroiliitis. Today the patient states her pain is a 3 out of 10. Patient denies any new trauma or injury. Patient denies any change in location or type of pain she experiences. Patient does state that the previous injection did help significantly. Patient states that for the first several hours following this injection she did have 90% relief however once the local numbing medication wore off she did have worsening pain symptoms. Patient states that after of couple of days it did provide 50% To 70% relief. Patient states that initially it did take a couple days for this to kick in and she felt like it was more along the lines of 50% however now she does state that she feels like it was even more of at least 75%. Patient states now that she is going back towards her baseline she notices a significant decrease from what pain relief she was getting. Patient states the pain is all in her low back along the right side and describes this as a aching, throbbing sensation that is worse with increased activity. Patient states following the initial injection she was able to increase her activity and perform activities of daily living with much less pain symptoms. Patient states she was able to increase her walking and range of motion including doing shopping, cooking and cleaning with this injection. Patient continues to use a heating pad as needed. Patient is prescribed Percocet 10 mg 5 times a day. Patient denies any side effects from this medication. She states this medication does provide significant improvement of her symptoms. Patient is also prescribed compounding cream that she states does provide significant improvement in her shoulders and her hips. Her Evans has been reviewed and is appropriate. General: No recent weight changes, no fever, no sleep disturbances Respiratory: No cough, no shortness of air, no recurring pulmonary infections Cardiovascular/peripheral vascular: No chest pain, no palpitations, no edema, no shortness of breath Gastrointestinal: No new onset incontinence, normal bowel movements reported Genitourinary: No new onset incontinence Musculoskeletal: Low back pain, right leg pain Psychiatric: Normal mood/affect Neurological: Denies weakness in extremities, denies balance issues Objective:: General: Alert and oriented x3, no acute distress, pleasant and cooperative Lungs: Respiration even unlabored, symmetrical chest expansion Eyes: PERRL Musculoskeletal: Flexion and extension of lumbar spine somewhat guarded secondary to pain, antalgic gait noted. Extreme point tenderness along right SI with positive right Irina's, Cordell's, Gaenslen's, compression and distraction exam Neurological: Speech clear, no gross sensory deficit Assessment:: Degenerative disc disease of lumbar spine with lumbar radiculopathy symptoms, sacroiliitis Plan:: Patient is experiencing significant pain in her low back along the right side that radiates down her right leg. Patient had limited range of motion of her lumbar spine with extreme point tenderness along right SI and positive right Irina's, Cordell's, Gaenslen's, compression and distraction exam. I have discussed with the patient regarding having repeat SI injections. Risks and benefits were explained to the patient. She would like to proceed forward with this plan of care. Her previous injection did provide significant improvement lasting approximately 3 weeks and rating it at upwards of 75%. I will refill the patient's Percocet 10 mg 5 times a day and provide a 1 month supply of this medication. We will schedule her for a right SI. Patient has been instructed to contact the clinic with any questions or concerns before the next appointment date. Dr. Zelaya has read thi
== END ==
PROVIDERS: PCP Family Medicine; Visit Provider Nurse Anesthetist, Certified Registered
DX: M51.16 Intervertebral disc disorders with radiculopathy, lumbar region (principal); M46.1 Sacroiliitis, not elsewhere classified
CPT/HCPCS: 99212; G0463

== ENCOUNTER 2022-04-24 10:37 | Day surgery (SDC) | payer OTHER, SELFPAY ==
[2022-04-24 10:51] VITALS: BP 152/88; BP 154/92; PULSE 71; PULSE 76; RESP 18; TEMP 36.3; O2SAT 98; BMI 47.0
[2022-04-24 10:57] VITALS: BP 139/71; PULSE 71; RESP 18; O2SAT 98
--- NOTE | 2022-04-24 10:57 | EXP.PAIN.PRO ---
Procedure Date: 04/24/22 Time: 10:57 Anesthesiologist:: Kyle Flores CRNA Complications:: None Pre-procedure Diagnosis:: Degenerative disc disease of lumbar spine with lumbar radiculopathy symptoms, sacroiliitis Post-procedure Diagnosis:: Same Indications for Procedure:: Patient is a pleasant 51-year-old female who presents today for right SI injection. We are currently treating the patient for degenerative disc disease of the lumbar spine with lumbar radiculopathy symptoms, sacroiliitis. Today she rates her pain a 6 out of 10. Patient denies any new trauma or injury. Patient denies any change in location or type of pain she experiences. Patient does describe this as a aching, throbbing sensation that is worse with increased activity. Patient cannot tolerate prolonged sitting, standing, walking due to the pain. She is currently managed with Percocet 10 mg 5 times a day. Patient denies any side effects from this medication. She states this medication does help her pain symptoms. Her Evans has been reviewed and appropriate. Procedure Details:: Informed consent was obtained and the risks and benefits of the procedure were explained to the patient.~ The patient was taken to the procedure room and noninvasive monitors were placed including a noninvasive blood pressure cuff and pulse oximeter.~ The patient was placed prone on the procedure table. Both hips were cleansed using ChloraPrep as a cleansing solution. C-arm fluoroscopy was used to view the right sacroiliac joint.~ The skin and subcutaneous tissues were anesthetized using lidocaine 1.5% and a 25-gauge needle.~ After this, a 22-gauge spinal needle was inserted under fluoroscopic guidance into the inferior aspect of the right sacroiliac joint.~ Omnipaque dye was injected and good spread was seen throughout the joint.~ After this, approximately 5 mL of bupivacaine, 0.25% and Depo-Medrol, 40 mg was incrementally injected into the right sacroiliac joint. The patient was observed in the Pain Clinic and then was discharged home neurologically intact. Plan and Disposition:: Patient will return to clinic in 2 weeks for reevaluation of symptoms and follow-up. Patient has been instructed to contact the clinic with any questions or concerns before the next appointment date. Dr. Zelaya has read this note and agrees with this plan of care. This note was dictated using voice recognition software and may contain errors or omissions.
== END 2022-04-24 10:57 | disposition home or self-care (01) ==
PROVIDERS: PCP Family Medicine; Visit Provider Nurse Anesthetist, Certified Registered
DX: M51.16 Intervertebral disc disorders with radiculopathy, lumbar region (principal); M46.1 Sacroiliitis, not elsewhere classified
CPT/HCPCS: 27096; G0260; J1040

== ENCOUNTER → 2022-05-10 14:54 | Outpatient (POV) | payer OTHER, SELFPAY ==
[2022-05-10 15:05] VITALS: BP 114/77; PULSE 73; RESP 18; O2SAT 97; BMI 46.7
--- NOTE | 2022-05-10 15:11 | EXP.PAIN.SOA ---
[facility] Pain Management SOAP Note Subjective:: Patient is a pleasant 51-year-old female who presents today for a follow-up after having a right SI joint injection on 04/24/2022. We are currently treating the patient for degenerative disc disease of lumbar spine with lumbar radiculopathy symptoms, sacroiliitis. Patient states she has had significant improvement of about 70% relief since having injection. Patient rates her pain a 5 out of a scale of 1-10 today. Patient denies any new trauma or injury. Patient denies any change in location or type of pain she experiences. Patient continues to have relief since injection. Patient is currently prescribed Percocet 10 mg / 325 mg 5 times a day. Patient denies any side effects from this medication. She states this medication does help manage her pain symptoms. [facility] #[id number] reviewed and appropriate. Review of Systems: General: No recent weight changes, no fever, no sleep disturbances Respiratory: No cough, no shortness of air, no recurring pulmonary infections Cardiovascular/peripheral vascular: No chest pain, no palpitations, no edema, no shortness of breath Gastrointestinal: No new onset incontinence, normal bowel movements reported Genitourinary: No new onset incontinence Musculoskeletal: Low back pain, right leg pain Psychiatric: [Normal mood/affect] Neurological: [Denies weakness in extremities], [denies balance issues] Objective:: Physical Exam: General: Alert and oriented x3, no acute distress, pleasant and cooperative Lungs: Respirations even and unlabored, symmetrical chest expansion Eyes: PERRL Musculoskeletal: Flexion and extension of lumbar [spine] somewhat guarded secondary to pain, [antalgic gait noted]. Mild point tenderness along right SI with positive Irina's, Cordell's, Gaenslen's, compression and distraction exam. Neurological: Speech clear, no gross sensory deficit Assessment:: Degenerative disc disease of lumbar spine with lumbar radiculopathy symptoms, sacroiliitis. Plan:: Patient has had significant relief since right SI injection and does not need additional injective therapy at this time. we will continue to monitor her symptoms and will follow-up with patient in office in 1 month for reevaluation of symptoms. I will refill the patient's Percocet 10 mg 5 times a day and provide a 1 month supply of this medication. Patient has been advised of risks of oversedation with the prescribed medication. Narcan has been offered to the patient in the event of oversedation. Patient has been advised that a family member should also be educated regarding administration of Narcan. Patient has been instructed to contact the clinic with any concerns before the next appointment. Dr. Zelaya has reviewed this note and agrees with this plan of care. This note was dictated using voice recognition software and make contain errors or omissions. [facility] Disclaimer: The information contained in this section may have been updated after the patient was seen, as this information can be updated by other users. 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 Atrial fibrillation History of back pain Hyperlipidemia Hypertension Sleep apnea Family History Other Family history of cancer Family history of diabetes mellitus type II Family history of myocardial infarction Social History Smoking Status: Never smoker second hand exposure: No alcohol intake: never substance use type: denies use current occupational status: other Travel in the last 8 weeks: None household members: spouse housing: house current occupational exposures/hazards: No caffeine: Yes
== END | disposition home or self-care (01) ==
PROVIDERS: PCP Internal Medicine; Visit Provider Nurse Practitioner Family
DX: M51.16 Intervertebral disc disorders with radiculopathy, lumbar region (principal); M46.1 Sacroiliitis, not elsewhere classified
CPT/HCPCS: 99212; G0463

== ENCOUNTER → 2022-05-10 15:11 | Outpatient (CLI) | payer OTHER, SELFPAY ==
[2022-05-10 15:49] LABS: Amphetamine/Metha Screen,Urine Negative ng/ml (<1000)
[2022-05-10 15:50] LABS: Barbiturates Screen,Urine Negative ng/ml (<200)
[2022-05-10 15:51] LABS: Benzodiazepines Screen,Urine Negative ng/ml (<200); Cannabinoid Screen,Urine Negative ng/ml (<50)
[2022-05-10 15:52] LABS: Cocaine Screen,Urine Negative ng/ml (<300); Methadone Screen,Urine Negative ng/ml (<300)
[2022-05-10 15:53] LABS: Opiate Screen,Urine Negative ng/ml (<300)
[2022-05-10 15:54] LABS: Phencyclidine Screen,Urine Negative ng/ml (<25)
[2022-05-16 02:54] LABS: Opiates Negative (Cutoff=100); Oxycodone (GC/MS) 1967 ng/mL (Cutoff=100); Oxymorphone (GC/MS) 595 ng/mL (Cutoff=100)
== END ==
PROVIDERS: PCP Internal Medicine; Visit Provider Nurse Practitioner Family
DX: Z79.891 Long term (current) use of opiate analgesic (principal)
CPT/HCPCS: 80305; 80361; 80365; G0480

== ENCOUNTER → 2022-06-11 11:02 | Outpatient (POV) | payer OTHER, SELFPAY ==
--- NOTE | 2022-06-11 11:11 | EXP.PAIN.SOA ---
[facility] Pain Management SOAP Note Subjective:: Patient is a pleasant 51-year-old female who presents today for medication refill and follow-up. We are currently treating the patient for degenerative disc disease of lumbar spine with lumbar radiculopathy symptoms, sacroiliitis. Today she rates her pain a 5 out of 10. Patient denies any change to location or type of pain she experiences. Patient denies any new trauma or injury. Patient previously had a right SI injection on 04/24/2022 that provided at least 70% improvement however at today's visit she does states she is back to her baseline. Patient states right now it is more tolerable because she is not moving around as much. Patient states she does increase her activity come warmer weather and she would like to repeat this injection closer to that timeframe. Patient is currently managed with Percocet 10 mg 5 times a day and compounding cream. Patient denies any side effects from these medications. She is requesting a refill of her Percocet at today's visit. Her Evans is [id number]. Its been reviewed and appropriate. Review of Systems: General: No recent weight changes, no fever, no sleep disturbances Respiratory: No cough, no shortness of air, no recurring pulmonary infections Cardiovascular/peripheral vascular: No chest pain, no palpitations, no edema, no shortness of breath Gastrointestinal: No new onset incontinence, normal bowel movements reported Genitourinary: No new onset incontinence Musculoskeletal: Low back pain Psychiatric: [Normal mood/affect] Neurological: [Denies weakness in extremities], [denies balance issues] Objective:: Physical Exam: General: Alert and oriented x3, no acute distress, pleasant and cooperative Lungs: Respirations even and unlabored, symmetrical chest expansion Eyes: PERRL Musculoskeletal: Flexion and extension of lumbar [spine] somewhat guarded secondary to pain, [antalgic gait noted] Neurological: Speech clear, no gross sensory deficit ORT score updated with low risk Assessment:: Degenerative disc disease of lumbar spine with lumbar radiculopathy symptoms, sacroiliitis Plan:: Patient does continue to have pain in her low back and SI joint however she is doing well with her current medication regimen. I will send in a refill of her Percocet 10 mg 5 times a day as well as send in a new order for compounding cream. Patient will return to clinic in 1 month for reevaluation of symptoms, medication refill and follow-up. Patient has been advised of risks of oversedation with the prescribed medication. Narcan has been offered to the patient in the event of oversedation. Patient has been advised that a family member should also be educated regarding administration of Narcan. Patient has been instructed to contact the clinic with any concerns before the next appointment. Dr. Zelaya has reviewed this note and agrees with this plan of care. This note was dictated using voice recognition software and make contain errors or omissions. [facility] Disclaimer: The information contained in this section may have been updated after the patient was seen, as this information can be updated by other users. 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 Atrial fibrillation History of back pain Hyperlipidemia Hypertension Sleep apnea Family History Other Family history of cancer Family history of diabetes mellitus type II Family history of myocardial infarction Social History Smoking Status: Never smoker second hand exposure: No alcohol intake: never substance use type: denies use current occupational status: other Travel in the last 8 weeks: None household members: spouse housing: house current occupational exposures/hazards: No caffeine: Yes
[2022-06-11 11:18] VITALS: BP 102/60; PULSE 70; RESP 18; O2SAT 98; BMI 46.6
== END | disposition home or self-care (01) ==
PROVIDERS: PCP Family Medicine; Visit Provider Nurse Practitioner Family
DX: M51.16 Intervertebral disc disorders with radiculopathy, lumbar region (principal); M46.1 Sacroiliitis, not elsewhere classified
CPT/HCPCS: 99212; G0463

== ENCOUNTER → 2022-06-26 12:36 | Outpatient (CLI) | payer OTHER, SELFPAY ==
[2022-06-26 13:13] LABS: Basophils # 0.1 K/mm3 (0-0.2); Basophils % 1.4 % (0.1-2.0); Eosinophils # 0.7 K/mm3 (0.0-0.4); Eosinophils % 7.6 % (0.1-12.0); Hematocrit 34.8 % (37.0-47.0); Hemoglobin 11.1 g/dL (12.2-16.2); Lymphocytes # 2.2 K/mm3 (0.7-4.5); Lymphocytes % 25.3 % (10-50); Mean Corpuscular HGB Conc 31.9 g/dL (31.8-35.4); Mean Corpuscular Hemoglobin 30.8 pg (27.0-31.2); Mean Corpuscular Volume 96.5 fl (81-99); Mean Platelet Volume 8.4 fl (7.4-10.4); Monocytes # 0.3 K/mm3 (0.1-1.0); Monocytes % 3.7 % (1.7-9.3); Neutrophils # 5.4 K/mm3 (1.8-7.8); Neutrophils % 62.1 % (37.0-80.0); Platelet Count 235 K/mm3 (142-424); Red Cell Distribution Width 12.8 % (11.5-17.5); White Blood Count 8.8 K/mm3 (4.8-10.8)
[2022-06-26 13:50] LABS: Chloride 102 mmol/L (98-107); Potassium 4.4 mmoL/L (3.5-5.1); Sodium 137 mmol/L (136-145)
[2022-06-26 13:53] LABS: Anion Gap 13.4 mEq/L (5-15); Blood Urea Nitrogen 23 mg/dl (7-17); Carbon Dioxide 26 mmol/L (22.0-30.0); Estimated Glomerular Filt Rate 58 ml/min (>60); GFR (African American) 70 ML/MIN (>60)
[2022-06-26 13:54] LABS: Calcium 8.9 mg/dl (8.4-10.2); Glucose 168 mg/dl (74-100)
== END ==
PROVIDERS: PCP Family Medicine; Visit Provider Family Medicine
DX: D64.9 Anemia, unspecified (principal); R79.89 Other specified abnormal findings of blood chemistry
CPT/HCPCS: 36415; 80048; 85025

== ENCOUNTER → 2022-07-09 09:48 | Outpatient (POV) | payer OTHER, SELFPAY ==
--- NOTE | 2022-07-09 10:28 | EXP.PAIN.SOA ---
[facility] Pain Management SOAP Note Subjective:: Patient is a pleasant 52-year-old female who presents today for follow-up and medication refill. We are currently treating the patient for degenerative disc disease of lumbar spine with lumbar radiculopathy symptoms, sacroiliitis chronic. Today she rates her pain a 5 out of 10. Patient denies any new trauma or injury. Patient denies any change location or type of pain she experiences. Patient does have chronic sacroiliitis that causes significant pain in her low back. She describes this as an aching, throbbing sensation that is worse with increased activity. Patient cannot tolerate prolonged sitting, standing, walking due to the pain. Patient does state it interferes with her ability to perform activities of daily living such as cooking and cleaning. Patient has had multiple SI injections in the past that provided significant relief. She is currently managed with Percocet 10 mg 5 times a day and compounding cream. Patient denies any side effects from this medication. She is requesting a refill at today's visit. Her Evans is [id number]. Its been reviewed and appropriate. Review of Systems: General: No recent weight changes, no fever, no sleep disturbances Respiratory: No cough, no shortness of air, no recurring pulmonary infections Cardiovascular/peripheral vascular: No chest pain, no palpitations, no edema, no shortness of breath Gastrointestinal: No new onset incontinence, normal bowel movements reported Genitourinary: No new onset incontinence Musculoskeletal: Low back pain Psychiatric: [Normal mood/affect] Neurological: [Denies weakness in extremities], [denies balance issues] Objective:: Physical Exam: General: Alert and oriented x3, no acute distress, pleasant and cooperative Lungs: Respirations even and unlabored, symmetrical chest expansion Eyes: PERRL Musculoskeletal: Flexion and extension of lumbar [spine] somewhat guarded secondary to pain, [antalgic gait noted] extreme point tenderness at bilateral SIs with positive bilateral Irina's, Cordell's, Gaenslen's, compression and distraction exam Neurological: Speech clear, no gross sensory deficit Assessment:: Degenerative disc disease of lumbar spine with lumbar radiculopathy symptoms, chronic sacroiliitis Plan:: Patient is experiencing severe pain in her low back with limited range of motion. Patient did have extreme point tenderness at her bilateral SI's and positive bilateral Irina's, Cordell's, Gaenslen's, compression and distraction exam. I have discussed with the patient that she may benefit from repeat bilateral SI injections. Risk and benefits were discussed with the patient and she would like to proceed forward with this plan of care. Patient does have chronic sacroiliitis and has had significant improvement following SI injections in the past. I will also refill her Percocet 10 mg 5 times a day and provide a 1 month supply of this medication. We will schedule her for bilateral SI injection. Patient has been advised of risks of oversedation with the prescribed medication. Narcan has been offered to the patient in the event of oversedation. Patient has been advised that a family member should also be educated regarding administration of Narcan. Patient has been instructed to contact the clinic with any concerns before the next appointment. Dr. Zelaya has reviewed this note and agrees with this plan of care. This note was dictated using voice recognition software and make contain errors or omissions. [facility] Disclaimer: The information contained in this section may have been updated after the patient was seen, as this information can be updated by other users. 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 Atrial fibrillation History of back pain Hyperlipidemia Hypertension Sleep apnea Family History Other Family history of cancer Family h
[2022-07-09 10:41] VITALS: BP 98/62; PULSE 67; RESP 18; O2SAT 98; BMI 48.4
== END | disposition home or self-care (01) ==
PROVIDERS: PCP Family Medicine; Visit Provider Nurse Practitioner Family
DX: M51.16 Intervertebral disc disorders with radiculopathy, lumbar region (principal); M46.1 Sacroiliitis, not elsewhere classified
CPT/HCPCS: 99212; G0463

== ENCOUNTER 2022-07-17 09:29 | Day surgery (SDC) | payer OTHER, SELFPAY ==
[2022-07-17 09:44] VITALS: BP 140/85; PULSE 77; RESP 18; TEMP 36.4; O2SAT 98; BMI 48.4
[2022-07-17 10:02] VITALS: BP 149/91; PULSE 70; RESP 18; O2SAT 98
[2022-07-17 10:03] VITALS: BP 149/91; PULSE 70; RESP 18; O2SAT 98
--- NOTE | 2022-07-17 10:07 | P.PCN_ITS ---
Procedure Date: 07/17/22 Time: 10:00 Anesthesiologist:: Kyle Flores CRNA Complications:: None Pre-procedure Diagnosis:: Bilateral sacroiliitis Post-procedure Diagnosis:: Same Indications for Procedure:: Patient is a very pleasant 52-year-old female comes our clinic today for sacroiliac joint injections. She has had this in the past with significant improvement terms of her low lumbar pain as well as posterior hip pain bilaterally. She rates her pain today 7/10. Procedure Details:: Procedure: Bilateral sacroiliac joint injections under fluoroscopy Informed consent was obtained and the risks and benefits of the procedure were explained to the patient.~ The patient was taken to the procedure room and noninvasive monitors were placed including a noninvasive blood pressure cuff and pulse oximeter.~ The patient was placed prone on the procedure table. Both hips were cleansed using Betadine as a cleansing solution. C-arm fluoroscopy was used to view the right sacroiliac joint.~ The skin and subcutaneous tissues were anesthetized using lidocaine 1.5% and a 25-gauge needle.~ After this, a 22-gauge spinal needle was inserted under fluoroscopic guidance into the inferior aspect of the right sacroiliac joint.~ Omnipaque dye was injected and good spread was seen throughout the joint.~ After this, approximately 5 mL of bupivacaine, 0.25% and Depo-Medrol, 40 mg was incrementally injected into the right sacroiliac joint. We then moved to the left sacroiliac joint.~ The skin and subcutaneous tissues were anesthetized using lidocaine 1.5% and a 25-gauge needle.~ After this, a 22- gauge spinal needle was inserted under fluoroscopic guidance into the inferior aspect of the left sacroiliac joint.~ Omnipaque dye was injected and good spread was seen throughout the joint. After this, approximately 5 mL of bupivacaine, 0.25% and Depo-Medrol, 40 mg was incrementally injected into the left sacroiliac joint.~ The patient tolerated the procedure well with no complications. The patient was observed in the Pain Clinic and then was discharged home neurologically intact. Plan and Disposition:: Patient was discharged without incident
[2022-07-17 10:10] VITALS: BP 141/76; PULSE 67; RESP 18; TEMP 36.4; O2SAT 98
== END 2022-07-17 10:10 | disposition home or self-care (01) ==
PROVIDERS: PCP Family Medicine; Visit Provider Nurse Anesthetist, Certified Registered
DX: M46.1 Sacroiliitis, not elsewhere classified (principal)
CPT/HCPCS: 27096; G0260; J1040

== ENCOUNTER → 2022-07-30 11:18 | Outpatient (CLI) | payer OTHER, SELFPAY ==
[2022-07-30 12:35] LABS: Iron 90 ug/dL (37-170)
== END ==
PROVIDERS: PCP Family Medicine; Visit Provider Family Medicine
DX: D64.9 Anemia, unspecified (principal)
CPT/HCPCS: 36415; 83540

== ENCOUNTER → 2022-08-03 09:43 | Outpatient (POV) | payer OTHER, SELFPAY ==
[2022-08-03 09:54] VITALS: BP 131/90; PULSE 73; RESP 18; O2SAT 98; BMI 46.7
--- NOTE | 2022-08-03 09:55 | A.OFFVIS_ITS ---
[facility] Pain Management SOAP Note Subjective:: This patient is a very pleasant 52-year-old female that returns our clinic today after having bilateral sacroiliac joint injections. She is reporting 90% improvement in terms of her overall lumbar back pain as well as posterior hip pain bilaterally. Patient states she is able to do home chores with minimal to no pain. Patient able to transition from sitting to standing with minimal pain if any. Overall, patient very satisfied with bilateral sacroiliac joint injections results. We currently are managing the patient with Percocet 10 mg 1 p.o. 5 times daily. Patient states medication does help significantly with her overall pain symptoms. Her Evans #[id number] has been reviewed and appropriate. Her UDS has been appropriate in the past. Objective:: Patient is awake alert [place] x3. In no acute distress. Flexion-extension lumbar spine somewhat guarded secondary to pain. Deep tendon reflexes upper and lower extremities normal. Motor strength upper and lower extremities normal. There is no gross sensory deficit. Gait is normal. Assessment:: Degenerative disc disease lumbar spine multilevels. Lumbar radiculopathy. Bilateral sacroiliitis. Plan:: Patient will return to see us in 1 month for medication refills. [facility] Disclaimer: The information contained in this section may have been updated after the patient was seen, as this information can be updated by other users. 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 Atrial fibrillation History of back pain Hyperlipidemia Hypertension Sleep apnea Family History Other Family history of cancer Family history of diabetes mellitus type II Family history of myocardial infarction Social History Smoking Status: Never smoker second hand exposure: No alcohol intake: never substance use type: denies use current occupational status: other Travel in the last 8 weeks: None household members: spouse housing: house current occupational exposures/hazards: No caffeine: Yes
== END | disposition home or self-care (01) ==
PROVIDERS: PCP Family Medicine; Visit Provider Nurse Anesthetist, Certified Registered
DX: M51.16 Intervertebral disc disorders with radiculopathy, lumbar region (principal); M46.1 Sacroiliitis, not elsewhere classified
CPT/HCPCS: 99212; G0463

== ENCOUNTER → 2022-08-30 09:42 | Outpatient (POV) | payer OTHER, SELFPAY ==
--- NOTE | 2022-08-30 10:15 | EXP.PAIN.SOA ---
[facility] Pain Management SOAP Note Subjective:: Patient is a pleasant 52-year-old female who presents today for medication refill and follow-up. We are currently treating her for degenerative disc disease of lumbar spine with lumbar radiculopathy symptoms, bilateral sacroiliitis. Today she rates her pain a 6 out of 10. Patient denies any new trauma or injury. She does state that her SI symptoms have started to return over the last week and a half. Patient did previously have bilateral SI injections back in the beginning of July that did provide 90% improvement lasting up until this point. Patient is interested in repeating these injections. She does state her pain is an aching, throbbing sensation that is worse with increased activity. Patient does state that the pain interferes with her ability to perform activities of daily living such as cooking and cleaning. Patient has tried oral medications as well as heat and ice and topicals with minimal improvement. Patient has also done physical therapy and at home stretching and exercise for longer than 6 weeks. She is currently managed with Percocet 10 mg 5 times a day. She denies any side effects from these medications. Her Evans is [id number]. Its been reviewed and appropriate. Review of Systems: General: No recent weight changes, no fever, no sleep disturbances Respiratory: No cough, no shortness of air, no recurring pulmonary infections Cardiovascular/peripheral vascular: No chest pain, no palpitations, no edema, no shortness of breath Gastrointestinal: No new onset incontinence, normal bowel movements reported Genitourinary: No new onset incontinence Musculoskeletal: Low back pain Psychiatric: [Normal mood/affect] Neurological: [Denies weakness in extremities], [denies balance issues] Objective:: Physical Exam: General: Alert and oriented x3, no acute distress, pleasant and cooperative Lungs: Respirations even and unlabored, symmetrical chest expansion Eyes: PERRL Musculoskeletal: Flexion and extension of lumbar [spine] somewhat guarded secondary to pain, [antalgic gait noted] extreme point tenderness along bilateral SIs with positive bilateral Irina's, Cordell's, Gaenslen's, compression and distraction exam Neurological: Speech clear, no gross sensory deficit Assessment:: Degenerative disc disease of lumbar spine with lumbar radiculopathy symptoms, chronic sacroiliitis Plan:: Patient is experiencing significant pain in her low back bilaterally and radiating into her bilateral hips. Patient had limited range of motion of her lumbar spine along with extreme point tenderness at her bilateral SIs and a positive bilateral Irina's, Cordell's, Gaenslen's, compression and distraction exam. Patient has tried and failed conservative therapy such as oral medications, heat and ice, topicals, physical therapy, at home stretching and exercise. Patient did have 90% improvement following her last SI injections lasting approximately 2 months. I have discussed with the patient that she may benefit from repeat SI injections. Risk and benefits were discussed with the patient and she would like to proceed forward with this plan of care. I will also refill her Percocet 10 mg 5 times a day and provide a 1 month supply of this medication. Patient will be scheduled for bilateral SI injections. Patient has been advised of risks of oversedation with the prescribed medication. Narcan has been offered to the patient in the event of oversedation. Patient has been advised that a family member should also be educated regarding administration of Narcan. Patient has been instructed to contact the clinic with any concerns before the next appointment. Dr. Zelaya has reviewed this note and agrees with this plan of care. This note was dictated using voice recognition software and make contain errors or omissions. [facility] Disclaimer: The information contained in this section may have been updated after the patient was seen, as this
[2022-08-30 10:24] VITALS: BP 102/72; PULSE 51; RESP 18; O2SAT 97; BMI 48.0
== END | disposition home or self-care (01) ==
PROVIDERS: PCP Nurse Practitioner; Visit Provider Nurse Practitioner Family
DX: M51.16 Intervertebral disc disorders with radiculopathy, lumbar region (principal); M46.1 Sacroiliitis, not elsewhere classified
CPT/HCPCS: 99212; G0463

== ENCOUNTER → 2022-08-30 10:18 | Outpatient (CLI) | payer OTHER, SELFPAY ==
[2022-08-30 12:46] LABS: Amphetamine/Metha Screen,Urine Negative ng/ml (<1000)
[2022-08-30 12:47] LABS: Barbiturates Screen,Urine Negative ng/ml (<200); Benzodiazepines Screen,Urine Negative ng/ml (<200)
[2022-08-30 12:50] LABS: Cannabinoid Screen,Urine Negative ng/ml (<50)
[2022-08-30 12:51] LABS: Cocaine Screen,Urine Negative ng/ml (<300)
[2022-08-30 12:52] LABS: Methadone Screen,Urine Negative ng/ml (<300); Opiate Screen,Urine Negative ng/ml (<300)
[2022-08-30 12:53] LABS: Phencyclidine Screen,Urine Negative ng/ml (<25)
[2022-09-04 17:37] LABS: Opiates Negative (Cutoff=100); Oxycodone (GC/MS) 499 ng/mL (Cutoff=100); Oxymorphone (GC/MS) 235 ng/mL (Cutoff=100)
== END ==
PROVIDERS: Nurse Practitioner Family; PCP Nurse Practitioner; Visit Provider Anesthesiology
DX: Z79.891 Long term (current) use of opiate analgesic (principal)
CPT/HCPCS: 80305; 80361; 80365; G0480

== ENCOUNTER 2022-09-11 08:53 | Day surgery (SDC) | payer OTHER, SELFPAY ==
[2022-09-11 08:59] VITALS: BP 161/98; PULSE 70; RESP 19; O2SAT 97
[2022-09-11 09:05] VITALS: BP 140/83; PULSE 77; RESP 18; TEMP 36.1; O2SAT 97; BMI 47.5
[2022-09-11 09:14] VITALS: BP 137/68; PULSE 71; RESP 18; O2SAT 96
--- NOTE | 2022-09-11 09:14 | P.PCN_ITS ---
Procedure Date: 09/11/22 Time: 09:00 Anesthesiologist:: Kyle Flores CRNA Complications:: None Pre-procedure Diagnosis:: Bilateral sacroiliitis Post-procedure Diagnosis:: Same. Indications for Procedure:: Patient is a very pleasant 52-year-old female that comes our clinic today for bilateral sacroiliac joint injections. Patient has had significant improvement in her overall low lumbar back pain as well as bilateral posterior hip pain with previous sacroiliac joint injections. She has extreme point tenderness upon examination over the bilateral sacroiliac joints. She has difficulty transitioning from sitting to standing. Difficulty ambulating any distance due to pain. She rates her pain 7/10. Procedure Details:: Procedure: Bilateral sacroiliac joint injections under fluoroscopy Informed consent was obtained and the risks and benefits of the procedure were explained to the patient.~ The patient was taken to the procedure room and noninvasive monitors were placed including a noninvasive blood pressure cuff and pulse oximeter.~ The patient was placed prone on the procedure table. Both hips were cleansed using Betadine as a cleansing solution. C-arm fluoroscopy was used to view the right sacroiliac joint.~ The skin and subcutaneous tissues were anesthetized using lidocaine 1.5% and a 25-gauge needle.~ After this, a 22-gauge spinal needle was inserted under fluoroscopic guidance into the inferior aspect of the right sacroiliac joint.~ Omnipaque dye was injected and good spread was seen throughout the joint.~ After this, approximately 5 mL of bupivacaine, 0.25% and Depo-Medrol, 40 mg was incrementally injected into the right sacroiliac joint. We then moved to the left sacroiliac joint.~ The skin and subcutaneous tissues were anesthetized using lidocaine 1.5% and a 25-gauge needle.~ After this, a 22- gauge spinal needle was inserted under fluoroscopic guidance into the inferior aspect of the left sacroiliac joint.~ Omnipaque dye was injected and good spread was seen throughout the joint. After this, approximately 5 mL of bupivacaine, 0.25% and Depo-Medrol, 40 mg was incrementally injected into the left sacroiliac joint.~ The patient tolerated the procedure well with no complications. The patient was observed in the Pain Clinic and then was discharged home neurologically intact. Plan and Disposition:: Patient was discharged without incident.
== END 2022-09-11 09:14 | disposition home or self-care (01) ==
PROVIDERS: PCP Nurse Practitioner; Visit Provider Nurse Anesthetist, Certified Registered
DX: M46.1 Sacroiliitis, not elsewhere classified (principal)
CPT/HCPCS: 27096; G0260; J1040

== ENCOUNTER → 2022-09-26 09:23 | Outpatient (POV) | payer OTHER, SELFPAY ==
[2022-09-26 09:38] VITALS: BP 136/79; PULSE 69; RESP 18; TEMP 36.8; O2SAT 95; BMI 47.4
--- NOTE | 2022-09-26 09:46 | EXP.PAIN.SOA ---
[facility] Pain Management SOAP Note Subjective:: Patient is a pleasant 52-year-old female who presents today for follow-up of bilateral SI injections on 09/11/2022.? We are currently treating her for degenerative disc disease of lumbar spine with lumbar radiculopathy symptoms, bilateral sacroiliitis.? Today she rates her pain a 4 out of 10 and states that she has had at least 70% improvement following these injections.? Patient denies any new trauma or injury.? She denies any change to location or type of pain she experiences. She states she has been able to increase her activity with decreased pain symptoms. She states that she does still notice the pain there however it is much more tolerable and she feels overall more functional. She is currently managed with Percocet 10 mg 5 times a day.? She denies any side effects from these medications.? Her Evans is [id number].? Its been reviewed and appropriate. Review of Systems: General: No recent weight changes, no fever, no sleep disturbances Respiratory: No cough, no shortness of air, no recurring pulmonary infections Cardiovascular/peripheral vascular: No chest pain, no palpitations,? no edema, no shortness of breath Gastrointestinal: No new onset incontinence, normal bowel movements reported Genitourinary: No new onset incontinence Musculoskeletal: Low back pain Psychiatric: [Normal mood/affect] Neurological: [Denies weakness in extremities], [denies balance issues] Objective:: Physical Exam: General: Alert and oriented x3, no acute distress, pleasant and cooperative Lungs: Respirations even and unlabored, symmetrical chest expansion Eyes: PERRL Musculoskeletal: Flexion and extension of lumbar [spine] somewhat guarded secondary to pain, [antalgic gait noted] Neurological: Speech clear, no gross sensory deficit Assessment:: Degenerative disc disease of lumbar spine with lumbar radiculopathy symptoms, bilateral sacroiliitis Plan:: Patient has had significant improvement of her pain symptoms following her injections and does not require any additional injective therapy at this time. I will refill the patient's Percocet 10 mg 5 times a day and provide a 1 month supply of this medication. Patient will return to clinic in 1 month for reevaluation of symptoms, medication refill and follow-up. Patient has been advised of risks of oversedation with the prescribed medication. Narcan has been offered to the patient in the event of oversedation. Patient has been advised that a family member should also be educated regarding administration of Narcan. Patient has been instructed to contact the clinic with any concerns before the next appointment. Dr. Zelaya has reviewed this note and agrees with this plan of care. This note was dictated using voice recognition software and make contain errors or omissions. [facility] Disclaimer: The information contained in this section may have been updated after the patient was seen, as this information can be updated by other users. 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 Atrial fibrillation History of back pain Hyperlipidemia Hypertension Sleep apnea Family History Other Family history of cancer Family history of diabetes mellitus type II Family history of myocardial infarction Social History Smoking Status: Never smoker second hand exposure: No alcohol intake: never substance use type: denies use current occupational status: other Travel in the last 8 weeks: None household members: spouse housing: house current occupational exposures/hazards: No caffeine: Yes
== END | disposition home or self-care (01) ==
PROVIDERS: Visit Provider Nurse Practitioner Family
DX: M51.16 Intervertebral disc disorders with radiculopathy, lumbar region (principal); M46.1 Sacroiliitis, not elsewhere classified
CPT/HCPCS: 99212; G0463

== ENCOUNTER → 2022-10-26 09:07 | Outpatient (POV) | payer OTHER, SELFPAY ==
[2022-10-26 09:18] VITALS: BP 133/72; PULSE 74; RESP 19; O2SAT 96; BMI 48.1
--- NOTE | 2022-10-26 09:26 | EXP.PAIN.SOA ---
[facility] Pain Management SOAP Note Subjective:: This patient is a pleasant 52-year-old female that comes our clinic today for medication refill and follow-up. Patient recently had bilateral sacroiliac joint injections. She reports significant improvement terms of her overall bilateral posterior hip pain. Today she rates her pain 4/10. We are currently managing the patient medically with Percocet 10 mg 1 p.o. 5 times daily. Patient denies any side effects or complications regarding the medication. Her Evans #[id number] has been reviewed and appropriate. Objective:: Patient is awake alert [place] x3. In no acute distress. Flexion-extension lumbar spine somewhat guarded secondary to pain. Deep tendon reflexes upper lower extremities normal. Motor strength upper and lower extremities normal. There is no gross sensory deficit. Gait is normal. Assessment:: Degenerative disc lumbar spine multilevels. Lumbar radiculopathy. Bilateral sacroiliitis. Plan:: We will refill her pain medication Percocet 10 mg 1 p.o. 5 times daily. Patient return to the clinic in 1 month for medication refill follow-up. [facility] Disclaimer: The information contained in this section may have been updated after the patient was seen, as this information can be updated by other users. 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 Atrial fibrillation History of back pain Hyperlipidemia Hypertension Sleep apnea Family History Other Family history of cancer Family history of diabetes mellitus type II Family history of myocardial infarction Social History Smoking Status: Never smoker second hand exposure: No alcohol intake: never substance use type: denies use current occupational status: other Travel in the last 8 weeks: None household members: spouse housing: house current occupational exposures/hazards: No caffeine: Yes
== END | disposition home or self-care (01) ==
PROVIDERS: Visit Provider Nurse Practitioner Family
DX: M51.16 Intervertebral disc disorders with radiculopathy, lumbar region (principal); M46.1 Sacroiliitis, not elsewhere classified
CPT/HCPCS: 99212; G0463

== ENCOUNTER → 2022-11-26 09:06 | Outpatient (POV) | payer OTHER, SELFPAY ==
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
[2022-11-26 09:56] VITALS: BP 126/80; PULSE 73; RESP 18; O2SAT 96; BMI 48.1
== END | disposition home or self-care (01) ==
PROVIDERS: PCP Nurse Practitioner; Visit Provider Nurse Practitioner Family
DX: M51.16 Intervertebral disc disorders with radiculopathy, lumbar region (principal); M46.1 Sacroiliitis, not elsewhere classified
CPT/HCPCS: 99212; G0463

== ENCOUNTER → 2022-12-27 08:51 | Outpatient (POV) | payer OTHER, SELFPAY ==
--- NOTE | 2022-12-27 09:11 | EXP.PAIN.SOA ---
[facility] Pain Management SOAP Note Subjective:: Patient is a pleasant 52-year-old female who presents today for medication refill and follow-up. We are currently treating the patient for degenerative disc disease of lumbar spine with lumbar radiculopathy symptoms, bilateral sacroiliitis. Today she rates her pain a 5 out of 10. Patient denies any new trauma. She does state that on Saturday she did get up out of bed and felt that she may have twisted wrong and started having pain across her low back into her hips as well as some pain around the upper part of her buttocks. Patient does describe this is an aching, throbbing sensation that is worse with increased activity. It does interfere with her ability perform activities of daily living such as cooking and cleaning. Patient has previously had SI injections that did provide upwards of 80% relief lasting several months. Her last SI injections were back in August. She is interested in injective therapy at today's visit. Patient is currently managed with Percocet 10 mg 5 times a day. She denies any side effects from this medication. Her Evans is [phone]. Its been reviewed and appropriate. Review of Systems: General: No recent weight changes, no fever, no sleep disturbances Respiratory: No cough, no shortness of air, no recurring pulmonary infections Cardiovascular/peripheral vascular: No chest pain, no palpitations, no edema, no shortness of breath Gastrointestinal: No new onset incontinence, normal bowel movements reported Genitourinary: No new onset incontinence Musculoskeletal: Low back pain, bilateral hip pain, buttocks pain Psychiatric: [Normal mood/affect] Neurological: [Denies weakness in extremities], [denies balance issues] Objective:: Physical Exam: General: Alert and oriented x3, no acute distress, pleasant and cooperative Lungs: Respirations even and unlabored, symmetrical chest expansion Eyes: PERRL Musculoskeletal: Flexion and extension of lumbar [spine] somewhat guarded secondary to pain, [antalgic gait noted] extreme point tenderness across bilateral SIs with positive bilateral Irina's, Cordell's, Gaenslen's, compression and distraction exam Neurological: Speech clear, no gross sensory deficit Assessment:: Degenerative disc disease of lumbar spine with lumbar radiculopathy symptoms, bilateral sacroiliitis Plan:: Patient is experiencing worsening pain in her low back and bilateral hips with limited range of motion. Patient had extreme point tenderness along her bilateral SIs with positive bilateral Irina's, Cordell's, Gaenslen's, compression and distraction exam. I have discussed with the patient that she may benefit from repeat bilateral SI injections. Patient does have a history of chronic sacroiliitis. Risk and benefits were explained to the patient and she would like to proceed forward with this plan of care. Patient does typically get upwards of 80% improvement or more lasting several months from these injections. I will also refill the patient's Percocet 10 mg 5 times a day and provide a 1 month supply of this medication. I will also send in a 14-day supply of gabapentin 300 mg at bedtime. I have counseled the patient to contact our office and let us know if this does help and if she would like additional refills. Patient will be scheduled for bilateral SI injections. Patient has been advised of risks of oversedation with the prescribed medication. Narcan has been offered to the patient in the event of oversedation. Patient has been advised that a family member should also be educated regarding administration of Narcan. Patient has been instructed to contact the clinic with any concerns before the next appointment. Dr. Zelaya has reviewed this note and agrees with this plan of care. This note was dictated using voice recognition software and make contain errors or omissions. [facility] Disclaimer: The information contained in this section may have been updated after the patient was
[2022-12-27 11:10] VITALS: BP 154/98; PULSE 89; RESP 18; O2SAT 95; BMI 46.5
== END | disposition home or self-care (01) ==
PROVIDERS: Visit Provider Nurse Practitioner Family
DX: M51.16 Intervertebral disc disorders with radiculopathy, lumbar region (principal); M46.1 Sacroiliitis, not elsewhere classified
CPT/HCPCS: 99212; G0463

== ENCOUNTER → 2023-01-11 08:45 | Outpatient (POV) | payer OTHER, SELFPAY ==
[2023-01-11 09:49] VITALS: BP 123/54; PULSE 68; RESP 18; O2SAT 94; BMI 48.1
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
== END ==
PROVIDERS: Visit Provider Nurse Anesthetist, Certified Registered
DX: M51.16 Intervertebral disc disorders with radiculopathy, lumbar region (principal); M46.1 Sacroiliitis, not elsewhere classified
CPT/HCPCS: 99212; G0463

== ENCOUNTER → 2023-02-07 10:31 | Outpatient (POV) | payer OTHER, SELFPAY ==
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
[2023-02-07 12:16] VITALS: BP 117/73; PULSE 79; RESP 18; O2SAT 95; BMI 43.1
== END | disposition home or self-care (01) ==
PROVIDERS: Visit Provider Nurse Practitioner Family
DX: M51.16 Intervertebral disc disorders with radiculopathy, lumbar region (principal); M46.1 Sacroiliitis, not elsewhere classified; M25.551 Pain in right hip; M25.552 Pain in left hip
CPT/HCPCS: 99212; G0463

== ENCOUNTER → 2023-02-07 11:11 | Outpatient (CLI) | payer OTHER, SELFPAY ==
[2023-02-07 15:33] LABS: Amphetamine/Metha Screen,Urine Negative ng/ml (<1000)
[2023-02-07 15:34] LABS: Barbiturates Screen,Urine Negative ng/ml (<200); Benzodiazepines Screen,Urine Negative ng/ml (<200)
[2023-02-07 15:35] LABS: Cannabinoid Screen,Urine Negative ng/ml (<50)
[2023-02-07 15:36] LABS: Methadone Screen,Urine Negative ng/ml (<300); Opiate Screen,Urine Negative ng/ml (<300)
[2023-02-07 15:37] LABS: Cocaine Screen,Urine Negative ng/ml (<300)
[2023-02-07 15:38] LABS: Phencyclidine Screen,Urine Negative ng/ml (<25)
[2023-02-12 09:35] LABS: Opiates Negative (Cutoff=100); Oxycodone (GC/MS) 2068 ng/mL (Cutoff=100); Oxymorphone (GC/MS) 1091 ng/mL (Cutoff=100)
== END ==
PROVIDERS: PCP Nurse Practitioner; Visit Provider Nurse Practitioner Family
DX: Z79.891 Long term (current) use of opiate analgesic (principal)
CPT/HCPCS: 80305; 80361; 80365; G0480

== ENCOUNTER 2023-02-26 15:50 | Emergency (ER) | payer OTHER, SELFPAY ==
[2023-02-26 15:55] VITALS: BP 114/68; PULSE 82; RESP 17; TEMP 36.7; O2SAT 98; BMI 34.4
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
[2023-02-26 16:41] VITALS: BP 114/88; PULSE 82; RESP 20; TEMP 36.7; O2SAT 96
== END 2023-02-26 16:43 | disposition home or self-care (01) ==
PROVIDERS: Emergency Provider Student in an Organized Health Care Education/Training Program; PCP Nurse Practitioner
DX: S09.90XA Unspecified injury of head, initial encounter (principal); S46.811A Strain of other muscles, fascia and tendons at shoulder and upper arm level, right arm, initial encounter; I10 Essential (primary) hypertension; I48.91 Unspecified atrial fibrillation
CPT/HCPCS: 99283

== ENCOUNTER 2023-03-01 22:23 | Emergency (ER) | payer OTHER, SELFPAY ==
[2023-03-01 22:35] VITALS: BP 160/75; PULSE 96; RESP 16; TEMP 36.7; O2SAT 98; BMI 45.1
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
[2023-03-02 00:08] VITALS: BP 160/79; PULSE 90; RESP 18; TEMP 36.7; O2SAT 98
== END 2023-03-02 00:11 | disposition home or self-care (01) ==
PROVIDERS: Emergency Provider Emergency Medicine; PCP Nurse Practitioner
DX: M54.50 Low back pain, unspecified (principal); I10 Essential (primary) hypertension; E78.5 Hyperlipidemia, unspecified; V47.5XXA Car driver injured in collision with fixed or stationary object in traffic accident, initial encounter
CPT/HCPCS: 72128; 72131; 99284

== ENCOUNTER → 2023-03-06 10:21 | Outpatient (POV) | payer OTHER, SELFPAY ==
[2023-03-06 10:36] VITALS: BP 142/84; PULSE 85; RESP 18; O2SAT 98; BMI 45.1
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
== END | disposition home or self-care (01) ==
PROVIDERS: Visit Provider Nurse Practitioner Family
DX: M51.16 Intervertebral disc disorders with radiculopathy, lumbar region (principal); M46.1 Sacroiliitis, not elsewhere classified
CPT/HCPCS: 99212; G0463

== ENCOUNTER → 2023-04-04 11:23 | Outpatient (POV) | payer OTHER, SELFPAY ==
[2023-04-04 11:43] VITALS: BP 104/67; PULSE 87; RESP 18; O2SAT 93; BMI 42.4
--- NOTE | 2023-04-04 11:56 | EXP.PAIN.SOA ---
[facility] Pain Management SOAP Note Subjective:: Patient is a pleasant 52-year-old female who presents today for medication refill and follow-up. We are currently treating the patient for degenerative disc disease of lumbar spine with lumbar radiculopathy symptoms, bilateral sacroiliitis. Today she rates her pain a 5 out of 10. Patient denies any new trauma or injury or change to the location or type of pain she experiences. Patient does state that she has been experiencing more emotional issues regarding to recently her of almost 20 years left. Patient states that she did go to her primary care provider who did prescribe her depression medications however that she has not taken these. Patient is currently managed with Percocet 10 mg 5 times a day and gabapentin 300 mg at bedtime. Patient denies any side effects from these medications. Her Evans has been reviewed and is appropriate. Review of Systems: General: No recent weight changes, no fever, no sleep disturbances Respiratory: No cough, no shortness of air, no recurring pulmonary infections Cardiovascular/peripheral vascular: No chest pain, no palpitations, no edema, no shortness of breath Gastrointestinal: No new onset incontinence, normal bowel movements reported Genitourinary: No new onset incontinence Musculoskeletal: Low back pain Psychiatric: [Normal mood/affect] Neurological: [Denies weakness in extremities], [denies balance issues] Objective:: Physical Exam: General: Alert and oriented x3, no acute distress, pleasant and cooperative Lungs: Respirations even and unlabored, symmetrical chest expansion Eyes: PERRL Musculoskeletal: Flexion and extension of lumbar [spine] somewhat guarded secondary to pain, [antalgic gait noted] Neurological: Speech clear, no gross sensory deficit Assessment:: Degenerative disc disease of lumbar spine with lumbar radiculopathy symptoms, bilateral sacroiliitis Plan:: I will refill the patient's Percocet 10 mg 5 times a day and gabapentin 300 mg at bedtime and provide a 1 month supply of this medication. Patient will return to clinic in 1 month for reevaluation of symptoms and plan of care. Patient has been advised of risks of oversedation with the prescribed medication. Narcan has been offered to the patient in the event of oversedation. Patient has been advised that a family member should also be educated regarding administration of Narcan. Patient has been instructed to contact the clinic with any concerns before the next appointment. Dr. Bux has reviewed this note and agrees with this plan of care. This note was dictated using voice recognition software and make contain errors or omissions. [facility] Disclaimer: The information contained in this section may have been updated after the patient was seen, as this information can be updated by other users. 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 (Updated 03/01/23 @ 23:05 by Jim Durand MD) Atrial fibrillation History of back pain Hyperlipidemia Hypertension Sleep apnea Family History Other Family history of cancer Family history of diabetes mellitus type II Family history of myocardial infarction Social History Smoking Status: Unknown if ever smoked second hand exposure: No alcohol intake: never substance use type: denies use current occupational status: unemployed Travel in the last 8 weeks: None household members: spouse housing: house current occupational exposures/hazards: No caffeine: Yes
== END | disposition home or self-care (01) ==
PROVIDERS: Visit Provider Nurse Practitioner Family
DX: M51.16 Intervertebral disc disorders with radiculopathy, lumbar region (principal); M46.1 Sacroiliitis, not elsewhere classified
CPT/HCPCS: 99212; G0463

== ENCOUNTER → 2023-05-02 11:23 | Outpatient (POV) | payer OTHER, SELFPAY ==
--- NOTE | 2023-05-02 12:03 | A.OFFVIS_ITS ---
[facility] Pain Management SOAP Note Subjective:: Patient is a pleasant 52-year-old female who presents today for medication refill. We are currently treating the patient for degenerative disc disease of lumbar spine with lumbar radiculopathy symptoms, bilateral sacroiliitis. Today she rates her pain a 5 out of 10. Patient denies any new trauma or injury. She is currently managed with Percocet 10 mg 5 times a day and gabapentin 300 mg at bedtime. She denies any side effects from this medication. Her Evans has been reviewed and is appropriate. Review of Systems: General: No recent weight changes, no fever, no sleep disturbances Respiratory: No cough, no shortness of air, no recurring pulmonary infections Cardiovascular/peripheral vascular: No chest pain, no palpitations, no edema, no shortness of breath Gastrointestinal: No new onset incontinence, normal bowel movements reported Genitourinary: No new onset incontinence Musculoskeletal: Low back pain Psychiatric: [Normal mood/affect] Neurological: [Denies weakness in extremities], [denies balance issues] Objective:: Physical Exam: General: Alert and oriented x3, no acute distress, pleasant and cooperative Lungs: Respirations even and unlabored, symmetrical chest expansion Eyes: PERRL Musculoskeletal: Flexion and extension of lumbar [spine] somewhat guarded secondary to pain, [antalgic gait noted] Neurological: Speech clear, no gross sensory deficit Assessment:: Degenerative disc disease of lumbar spine with lumbar radiculopathy symptoms, bilateral sacroiliitis Plan:: Patient is doing well with her current medication. I will refill the Percocet 10 mg 5 times a day and gabapentin 300 mg at bedtime and provide a 1 month supply of these medications. Patient will return to clinic in 1 month for reevaluation of symptoms and plan of care. Patient has been advised of risks of oversedation with the prescribed medication. Narcan has been offered to the patient in the event of oversedation. Patient has been advised that a family member should also be educated regarding administration of Narcan. Patient has been instructed to contact the clinic with any concerns before the next appointment. Dr. Zelaya has reviewed this note and agrees with this plan of care. This note was dictated using voice recognition software and make contain errors or omissions. [facility] Disclaimer: The information contained in this section may have been updated after the patient was seen, as this information can be updated by other users. 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 (Updated 03/01/23 @ 23:05 by Jim Durand MD) Atrial fibrillation History of back pain Hyperlipidemia Hypertension Sleep apnea Family History Other Family history of cancer Family history of diabetes mellitus type II Family history of myocardial infarction Social History Smoking Status: Unknown if ever smoked second hand exposure: No alcohol intake: never substance use type: denies use current occupational status: unemployed Travel in the last 8 weeks: None household members: spouse housing: house current occupational exposures/hazards: No caffeine: Yes
[2023-05-02 13:50] VITALS: BP 141/84; PULSE 88; RESP 18; O2SAT 96; BMI 42.2
== END | disposition home or self-care (01) ==
PROVIDERS: Visit Provider Nurse Practitioner Family
DX: M51.16 Intervertebral disc disorders with radiculopathy, lumbar region (principal); M46.1 Sacroiliitis, not elsewhere classified
CPT/HCPCS: 99212; G0463

== ENCOUNTER → 2023-05-30 10:35 | Outpatient (POV) | payer OTHER, SELFPAY ==
--- NOTE | 2023-05-30 10:38 | A.OFFVIS_ITS ---
[facility] Pain Management SOAP Note Subjective:: Patient is a pleasant 52-year-old female who presents today for medication refill. We are currently treating the patient for degenerative disc disease of lumbar spine with lumbar radiculopathy symptoms, bilateral sacroiliitis. Today she rates her pain a 4 out of 10. Patient denies any new trauma or injury or change to location or type of pain she experiences. She does state that she is experiencing more pain in and around her low back and bilateral hips. Patient does describe this as an aching, throbbing sensation with numbness and tingling. She states it is worse with prolonged positioning such as sitting or standing. She states certain activities will cause worsening pain. Patient does have a history of chronic sacroiliitis and the last time that she tried to get these injections it was denied. Patient would like to see about trying to proceed forward with the injections today. She does state that they are interfering with her ability to perform activities of daily living such as cooking and cleaning. She is currently managed with Percocet 10 mg 5 times a day and ga bapentin 300 mg at bedtime. She denies any side effects from this medication. Her Evans has been reviewed and is appropriate. Review of Systems: General: No recent weight changes, no fever, no sleep disturbances Respiratory: No cough, no shortness of air, no recurring pulmonary infections Cardiovascular/peripheral vascular: No chest pain, no palpitations, no edema, no shortness of breath Gastrointestinal: No new onset incontinence, normal bowel movements reported Genitourinary: No new onset incontinence Musculoskeletal: Low back pain, bilateral hip pain Psychiatric: [Normal mood/affect] Neurological: [Denies weakness in extremities], [denies balance issues] Objective:: Physical Exam: General: Alert and oriented x3, no acute distress, pleasant and cooperative Lungs: Respirations even and unlabored, symmetrical chest expansion Eyes: PERRL Musculoskeletal: Flexion and extension of lumbar [spine] somewhat guarded secondary to pain, [antalgic gait noted] point tenderness along bilateral SIs and bilateral greater trochanteric bursa's with positive bilateral Irina, Cordell, Gaenslen's, compression and distraction exam Neurological: Speech clear, no gross sensory deficit Assessment:: degenerative disc disease of lumbar spine with lumbar radiculopathy symptoms, bilateral sacroiliitis, bilateral greater trochanteric bursitis Plan:: Patient is experiencing worsening pain in her low back and bilateral hips with limited range of motion and point tenderness along her bilateral SIs. Patient did also have point tenderness at her bilateral greater trochanteric bursa's and a positive bilateral Irina's, Cordell's, Gaenslen's, compression and distraction exam. I have discussed with the patient that she may benefit from bilateral SI injections as well as bursa injections in the future. Risk and benefits were discussed with patient and she would like to proceed forward with this plan of care. Patient in the past has gotten upwards of 70 to 80% relief following these injections. Her last SI injections were in August 2022. Patient has tried and failed conservative therapy such as oral medications, heat and ice, and at home stretching exercise for longer than 6 weeks. Patient continues to do well with current oral medication regimen. We will refill her Percocet 10 mg 5 times a day and gabapentin 300 mg at bedtime and provide a 1 month supply of this medication. Patient will be scheduled for bilateral SI injections under fluo roscopy. Risks and benefits of the medication have been explained in detail to the patient. The patient does understand the risk of dependence on the medication when given over a prolonged period. Patient has been advised of risks of oversedation with the prescribed medication. Narcan has been offered to the paitent in the event of oversedation. Patient has been advised that a family member should also be educated regarding administration of Narcan. The patient has been advised to consult with his/her primary care provider and pharmacist regarding drug-drug interaction of medications currently prescribed. Patient has been prescribed a controlled substance after being counseled on the medication, medication safety, and possible side effects. Opioid contract was reviewed and signed by the patient, and that they have agreed to all of the terms set forth by our compliance program. Patient has been instructed to contact the clinic with any concerns before the next appointment. Dr. Zelaya has reviewed this note and agrees with this plan of care. This note was dictated using voice recognition software and make contain errors or omissions. [facility] Disclaimer: The information contained in this section may have been updated after the patient was seen, as this information can be updated by other users. 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 (Updated 03/01/23 @ 23:05 by Jim Durand MD) Atrial fibrillation History of back pain Hyperlipidemia Hypertension Sleep apnea Family History Other Family history of cancer Family history of diabetes mellitus type II Family history of myocardial infarction Social History Smoking Status: Unknown if ever smoked second hand exposure: No alcohol intake: never substance use type: denies use current occupational status: unemployed Travel in the last 8 weeks: None household members: spouse housing: house current occupational exposures/hazards: No caffeine: Yes
[2023-05-30 10:59] VITALS: BP 108/70; PULSE 87; RESP 18; O2SAT 96; BMI 41.5
[2023-05-30 20:08] LABS: Barbiturates Screen,Urine Negative ng/ml (<200)
[2023-05-30 20:09] LABS: Amphetamine/Metha Screen,Urine Negative ng/ml (<1000); Benzodiazepines Screen,Urine Negative ng/ml (<200)
[2023-05-30 20:10] LABS: Cocaine Screen,Urine Negative ng/ml (<300)
[2023-05-30 20:11] LABS: Cannabinoid Screen,Urine Negative ng/ml (<50); Methadone Screen,Urine Negative ng/ml (<300)
[2023-05-30 20:12] LABS: Phencyclidine Screen,Urine Negative ng/ml (<25)
[2023-05-30 20:21] LABS: Opiate Screen,Urine Negative ng/ml (<300)
[2023-06-04 12:12] LABS: Opiates Negative (Cutoff=100); Oxycodone (GC/MS) 2464 ng/mL (Cutoff=100); Oxymorphone (GC/MS) 817 ng/mL (Cutoff=100)
== END | disposition home or self-care (01) ==
PROVIDERS: Visit Provider Nurse Practitioner Family
DX: M51.16 Intervertebral disc disorders with radiculopathy, lumbar region (principal); M46.1 Sacroiliitis, not elsewhere classified; M70.61 Trochanteric bursitis, right hip; M70.62 Trochanteric bursitis, left hip
CPT/HCPCS: 80307; 80361; 80365; 99212; G0463; G0480

== ENCOUNTER 2023-05-30 11:05 | Outpatient (CLI) | payer OTHER, SELFPAY | END 2023-05-30 23:59 | LOC: LAB 11:07 | PROVIDERS: PCP Nurse Practitioner; Visit Provider Anesthesiology | DX: Z79.891 Long term (current) use of opiate analgesic (principal) ==

== ENCOUNTER 2023-06-18 08:56 | Day surgery (SDC) | payer OTHER, SELFPAY ==
[2023-06-18 09:25] VITALS: BP 101/58; PULSE 80; RESP 18; TEMP 36.3; O2SAT 94; BMI 41.5
[2023-06-18 09:58] VITALS: BP 100/63; PULSE 80; RESP 16; O2SAT 96
--- NOTE | 2023-06-18 10:28 | P.PCN_ITS ---
Procedure Date: 06/18/23 Time: 10:10 Anesthesiologist:: Kyle Flores CRNA Complications:: None Pre-procedure Diagnosis:: Degenerative disc disease lumbar spine multilevels. Lumbar radiculopathy. Bilateral sacroiliitis. Post-procedure Diagnosis:: Same. Indications for Procedure:: Patient is a very pleasant 52-year-old female comes our clinic today for bilateral sacroiliac joint injections. Patient has had injections in the sacroiliac joints in the past with significant improvement lasting 1 year. She rates her pain today 7/10. Patient has difficulty transitioning from sitting to standing. Difficulty with flexion of the lumbar spine due to the bilateral posterior hip pain. Procedure Details:: Procedure: Bilateral sacroiliac joint injections under fluoroscopy Informed consent was obtained and the risks and benefits of the procedure were explained to the patient.~ The patient was taken to the procedure room and noninvasive monitors were placed including a noninvasive blood pressure cuff and pulse oximeter.~ The patient was placed prone on the procedure table. Both hips were cleansed using Betadine as a cleansing solution. C-arm fluoroscopy was used to view the right sacroiliac joint.~ The skin and subcutaneous tissues were anesthetized using lidocaine 1.5% and a 25-gauge needle.~ After this, a 22-gauge spinal needle was inserted under fluoroscopic guidance into the inferior aspect of the right sacroiliac joint.~ Omnipaque dye was injected and good spread was seen throughout the joint.~ After this, approximately 5 mL of bupivacaine, 0.25% and Depo-Medrol, 40 mg was incrementally injected into the right sacroiliac joint. We then moved to the left sacroiliac joint.~ The skin and subcutaneous tissues were anesthetized using lidocaine 1.5% and a 25-gauge needle.~ After this, a 22- gauge spinal needle was inserted under fluoroscopic guidance into the inferior aspect of the left sacroiliac joint.~ Omnipaque dye was injected and good spread was seen throughout the joint. After this, approximately 5 mL of bupivacaine, 0.25% and Depo-Medrol, 40 mg was incrementally injected into the left sacroiliac joint.~ The patient tolerated the procedure well with no complications. The patient was observed in the Pain Clinic and then was discharged home neurologically intact. Plan and Disposition:: Patient was discharged without incident.
[2023-06-18] MEDS: BUPIVACAINE 0.25% 10ML INJ 25 MG IJ (12:53)
[2023-06-18] MEDS: LIDOCAINE 1% 5ML PF VIAL 5 ML (12:53)
[2023-06-18] MEDS: methylPREDNISolone ACETATE 80MG/ML VIAL 80 MG (12:53)
[2023-06-18 12:54] VITALS: BP 124/86; PULSE 82; RESP 18; O2SAT 98
[2023-06-18 12:55] VITALS: BP 124/86; PULSE 82; RESP 18; O2SAT 98
== END 2023-06-18 09:58 | disposition home or self-care (01) ==
LOC: SC.PAINP 08:57
PROVIDERS: PCP Nurse Practitioner; Visit Provider Nurse Anesthetist, Certified Registered
DX: M46.1 Sacroiliitis, not elsewhere classified (principal); M51.16 Intervertebral disc disorders with radiculopathy, lumbar region
CPT/HCPCS: 27096; G0260; J1040

== ENCOUNTER 2023-07-01 11:29 | Outpatient (POV) | payer OTHER, SELFPAY ==
[2023-07-01 11:47] VITALS: BP 122/73; PULSE 87; RESP 18; O2SAT 97; BMI 40.7
--- NOTE | 2023-07-01 12:02 | EXP.PAIN.SOA ---
[facility] Pain Management SOAP Note Subjective:: Patient is a pleasant 52-year-old female who presents today for follow-up of bilateral SI injections on 07/03/2023. Today she rates her pain a 3 out of 10. She states she had at least 70% improvement following these injections. She does state that the first couple of days she had more pain related to the overall procedure and felt like she may have hit a nerve. She states that once this did calm down she did notice significant relief. She states that it is still providing improvement and she has been able to increase her activity with overall decreased pain. Patient is currently managed with Percocet 10 mg 5 times a day and gabapentin 300 mg at bedtime. She denies any side effects from this medication. Her Evans has been reviewed and is appropriate. Review of Systems: General: No recent weight changes, no fever, no sleep disturbances Respiratory: No cough, no shortness of air, no recurring pulmonary infections Cardiovascular/peripheral vascular: No chest pain, no palpitations, no edema, no shortness of breath Gastrointestinal: No new onset incontinence, normal bowel movements reported Genitourinary: No new onset incontinence Musculoskeletal: Low back pain Psychiatric: [Normal mood/affect] Neurological: [Denies weakness in extremities], [denies balance issues] Objective:: Physical Exam: General: Alert and oriented x3, no acute distress, pleasant and cooperative Lungs: Respirations even and unlabored, symmetrical chest expansion Eyes: PERRL Musculoskeletal: Flexion and extension of lumbar [spine] somewhat guarded secondary to pain, [antalgic gait noted] Neurological: Speech clear, no gross sensory deficit Assessment:: Degenerative disc disease of lumbar spine with lumbar radiculopathy symptoms, bilateral sacroiliitis Plan:: I will refill the patient's Percocet 10 mg 5 times a day and gabapentin 300 mg at bedtime and provide a 1 month supply of this medication. Patient has had significant improvement in her overall pain symptoms following her injections and does not require any additional injection therapy at this time. Patient will return to clinic in 1 month for reevaluation of symptoms and plan of care. Risks and benefits of the medication have been explained in detail to the patient. The patient does understand the risk of dependence on the medication when given over a prolonged period. Patient has been advised of risks of oversedation with the prescribed medication. Narcan has been offered to the paitent in the event of oversedation. Patient has been advised that a family member should also be educated regarding administration of Narcan. The patient has been advised to consult with his/her primary care provider and pharmacist regarding drug-drug interaction of medications currently prescribed. Patient has been prescribed a controlled substance after being counseled on the medication, medication safety, and possible side effects. Opioid contract was reviewed and signed by the patient, and that they have agreed to all of the terms set forth by our compliance program. Patient has been instructed to contact the clinic with any concerns before the next appointment. Dr. Zelaya has reviewed this note and agrees with this plan of care. This note was dictated using voice recognition software and make contain errors or omissions. [facility] Disclaimer: The information contained in this section may have been updated after the patient was seen, as this information can be updated by other users. 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 History of back pain Sleep apnea Hyperlipidemia Hypertension Atrial fibrillation Family History Other Family history of cancer Family history of diabetes mellitus type II Family history of myocardial infarction Social History Smoking Status: Unknown if ever smoked second hand exposure: No alcohol intake: never substance use type: denies use current occupational status: unemployed Travel in the last 8 weeks: None household members: spouse housing: house current occupational exposures/hazards: No caffeine: Yes
== END 2023-07-01 23:59 | disposition home or self-care (01) ==
PROVIDERS: Visit Provider Nurse Practitioner Family
DX: M51.16 Intervertebral disc disorders with radiculopathy, lumbar region (principal); M46.1 Sacroiliitis, not elsewhere classified
CPT/HCPCS: 99212; G0463

== ENCOUNTER 2023-07-19 00:14 | Emergency (ER) | payer OTHER, SELFPAY ==
[2023-07-19 00:16] VITALS: BP 138/88; PULSE 91; RESP 18; TEMP 36.5; O2SAT 97; BMI 40.7
--- NOTE | 2023-07-19 00:30 | ED_ITS ---
Discharge Plan Disposition Patient Disposition: Home, Self-Care Prescriptions Prescriptions: New levofloxacin 750 mg tablet 750 mg PO DAILY 6 Days Qty: 6 0RF No Action medroxyprogesterone 2.5 tablet 2.5 mg PO DAILY Patient Comments: metoprolol ta-hydrochlorothiaz 1 EACH tablet 1 ea PO DAILY Acid Control (ranitidine) 150 MG tablet 150 mg PO DAILY flecainide 50 MG tablet 50 mg PO DAILY omeprazole 20 capsule,delayed release(DR/EC) 20 mg PO DAILY Patient Comments: estrogens-methyltestosterone [EEMT] 0 tablet 1.25 - 2.5 mg PO DAILY Patient Comments: diclofenac sodium 75 MG tablet,delayed release (DR/EC) 75 mg PO BID loratadine 10 tablet 10 mg PO DAILY Patient Comments: ergocalciferol (vitamin D2) 2,000 UNIT tablet 2,000 unit PO WEEKLY cetirizine 10 MG tablet 10 mg PO DAILY pregabalin 150 MG capsule 150 mg PO BID lidocaine [Lidoderm] 5 % adhesive patch,medicated 1 patch topical DAILY Qty: 15 0RF Rx Instructions: leave on most painful area for up to 12 hrs methocarbamol 750 mg tablet 750 mg PO Q8H PRN (Reason: pain) Qty: 15 0RF gabapentin 300 mg capsule 300 mg PO HS Qty: 30 0RF oxycodone-acetaminophen [Percocet] 10-325 mg tablet 1 tab PO 5XDAY Qty: 150 0RF naloxone 4 MG spray,non-aerosol 4 mg NS ONCE MDD .. PRN (Reason: oversedation) Qty: 1 2RF Rx Instructions: gabapentin 800 MG tablet 800 mg PO TID duloxetine 60 MG capsule,delayed release(DR/EC) 60 mg PO DAILY ibuprofen 800 mg tablet 800 mg PO TID PRN (Reason: pain) 7 Days Qty: 20 0RF cyclobenzaprine 5 mg tablet 5 mg PO TID PRN (Reason: muscle spasm) 5 Days Qty: 15 0RF Referrals Follow up/Referrals: Juana Bailey APRN [Primary Care Provider] - See instructions Activity Restrictions/Add. Instructions Additional Instructions/Restrictions: Please take Levaquin as prescribed for treatment of urinary tract infection. Please follow-up with your primary care provider. Please return to the emergency department if you develop any new or worsening symptoms or become concerned for your health. Clinical Impressions Clinical Impression: Urinary tract infection Qualifiers: Encounter type: initial encounter Instructions Patient Instructions: DI for Urinary Tract Infection (UTI), DI for Urinary Tract Infection in Children Discharge ED Provider: Jose Elias Kimball General Adult HPI General Chief complaint: Urogenital-Female Stated complaint: pain when urinating, pain right side, incontinence Time Seen by Provider: 07/19/23 00:17 Mode of Arrival: Ambulatory Source of Information: Patient Limitations: No Limitations Description of Symptoms (Recalled from ER Triage Doc. by RN): Pt presents with concerns for kidney infection. States she has bilateral lower abdominal pressure and increased pain with movement. Pt took AZO which gave her temporary relief, but her pain is back 6/10. History of Present Illness HPI narrative: 53-year-old female with history of chronic back pain presents with multiple complaints. She reports that she has mild right lower quadrant abdominal pain and intermittent burning with urination for the last several days. She also reports that she had some blood when wiping. She reports that she has not had a period in a long time. She denies any history of kidney infection. She reports that she had a kidney stone many years ago but this does not feel anything like it. She reports that she has had a cholecystectomy but still has her appendix. She reports that her back pain is chronic and unchanged from baseline. She had an appointment with PCP but canceled it because she was feeling better. Tonight she feels a little worse so she presented to the ER. Related Data Home Medications Medication Instructions Recorded Confirmed diclofenac sodium 75 mg 75 mg PO BID CHRONIC PAIN 06/10/17 07/01/23 tablet,delayed release ergocalciferol (vitamin D2) 50 mcg 2,000 unit PO WEEKLY Supplement 06/10/17 07/01/23 (2,000 unit) tablet esterified 1.25 - 2.5 mg PO DAILY Supplement 06/10/17 07/01/23 estrogens-methyltestosterone 1.25 mg-2.5 mg tablet (EEMT) flecainide 50 mg tablet 50 mg PO DAILY UNKNOWN 06/10/17 07/01/23 loratadine 10 mg tablet 10 mg PO DAILY ALLERGIES 06/10/17 07/01/23 medroxyprogesterone 2.5 mg tablet 2.5 mg PO DAILY UNKNOWN 06/10/17 07/01/23 metoprolol tartrate 50 1 ea PO DAILY BLOOD PRESSURE 06/10/17 07/01/23 mg-hydrochlorothiazide 25 mg tablet omeprazole 20 mg capsule,delayed 20 mg PO DAILY GERD 06/10/17 07/01/23 release ranitidine HCl 150 mg tablet (Acid 150 mg PO DAILY GERD 06/10/17 07/01/23 Control (ranitidine)) cetirizine 10 mg tablet 10 mg PO DAILY allergies 10/17/20 07/01/23 pregabalin 150 mg capsule 150 mg PO BID nerve pain 10/17/20 07/01/23 gabapentin 800 mg tablet 800 mg PO TID Pain 07/27/21 07/01/23 duloxetine 60 mg capsule,delayed 60 mg PO DAILY PERIPHERAL 09/21/21 07/01/23 release NEUROPATHY Previous Rx's Medication Instructions Recorded naloxone 4 mg/actuation nasal spray 4 mg NS ONCE PRN oversedation #1 mL 04/13/21 cyclobenzaprine 5 mg tablet 5 mg PO TID PRN muscle spasm 5 02/26/23 days #15 tabs ibuprofen 800 mg tablet 800 mg PO TID PRN pain 7 days #20 02/26/23 tabs lidocaine 5 % topical patch 1 patch topical DAILY #15 ea 03/02/23 (Lidoderm) methocarbamol 750 mg tablet 750 mg PO Q8H PRN pain #15 tabs 03/02/23 gabapentin 300 mg capsule 300 mg PO HS Pain #30 caps 07/01/23 oxycodone-acetaminophen 10 mg-325 1 tab PO 5XDAY Pain #150 tabs 07/01/23 mg tablet (Percocet) levofloxacin 750 mg tablet 750 mg PO DAILY 6 days #6 tabs 07/19/23 Allergies Allergy/AdvReac Type Severity Reaction Status Date / Time No Known Allergies Allergy Verified 06/18/23 09:25 [facility] Disclaimer: The information contained in this section may have been updated after the patient was seen, as this information can be updated by other users. 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 (Updated 07/19/23 @ 00:54 by Jose Elias Kimball MD) History of back pain Sleep apnea Hyperlipidemia Hypertension Atrial fibrillation Family History Other Family history of cancer Family history of diabetes mellitus type II Family history of myocardial infarction Social History Smoking Status: Never smoker second hand exposure: No alcohol intake: never substance use type: denies use current occupational status: unemployed Travel in the last 8 weeks: None household members: spouse housing: house current occupational exposures/hazards: No caffeine: Yes ROS Obtained: Yes All systems reviewed & no additional complaints except as documented Physical Exam General General appearance: alert and in no apparent distress Head Head exam: atraumatic and normocephalic Eye Eye exam: Present normal appearance, PERRL and EOMI ENT ENT exam: Present normal oropharynx and normal external ear exam Neck Neck exam: Present normal inspection and full ROM Chest Chest inspection: Present normal inspection and symmetric chest wall rise; Absent tenderness Respiratory Respiratory exam: Present normal lung sounds bilaterally; Absent respiratory distress Cardiovascular Cardiovascular exam: Present regular rate and normal rhythm Abdominal Exam Abdominal exam: Present soft; Absent distention, tenderness or guarding Extremities Exam Extremities exam: Present normal inspection; Absent edema or joint swelling Back Exam Back exam: Present normal inspection and tenderness (Generalized) Neurological Exam Neurological exam: Present alert and oriented X3; Absent motor sensory deficit Psychiatric Psychiatric exam: Present normal affect and normal mood Skin Skin exam: Present warm, dry and normal color Lymphatic Lymphatic Findings: no adenopathy Medical Decision Making Medical Records Medical records reviewed: Yes I reviewed the patient's medical records. Evans Inquiry Pt receiving controlled substance: No Evans was queried for this patient: No Vital Signs: 07/19/23 00:16 Temperature 97.7 F Temperature Source Oral Pulse Rate [Left] 91 H Respiratory Rate 18 Blood Pressure [Right Arm] 138/88 Blood Pressure Mean [Right Arm] 104 Blood Pressure Source [Right Arm] Automatic Cuff Blood Pressure Position [Right Arm] Sitting 02 Sat by Pulse Oximetry 97 Oxygen Delivery Method Room Air Lab Data Lab results reviewed: Yes I reviewed the patient's lab results. Lab Results 07/19/23 00:18: Urine Color Yellow, Urine Appearance Cloudy, Urine pH 6.5, Ur Specific [place] >= 1.030, Urine Protein Trace, Urine Glucose (UA) 2+, Urine Ketones Trace, Urine Blood Trace-i, Urine Nitrate Negative, Urine Bilirubin Negative, Urine Urobilinogen 1.0, Ur Leukocyte Esterase 2+ A, Urine RBC Occasional, Urine WBC Tntc, Ur Squamous Epith Cells 5-10, Urine Bacteria 2+, Hyaline Casts Occasional Orders (Tests/Meds): ED MEDICATIONS Generic Name Dose Route Start Last Admin Trade Name Damaso PRN Reason Stop Dose Admin Levofloxacin 750 mg 07/19/23 00:54 07/19/23 00:56 Levofloxacin 750 Mg Tablet PO 07/19/23 00:55 750 mg ONCE ONE Administration ORDERS Category Date Time Status UA [Urinalysis and Microscopic] Stat Lab 07/19/23 00:18 Completed Urine Culture Stat Micro 07/19/23 00:18 Received EKG Request [ECG Request] Stat Y 07/19/23 00:59 Ordered Medical Decision Narrative: 53-year-old female with history of chronic back pain presents with burning with urination and intermittent right-sided abdominal pain.. History was obtained interactive discussion with patient, chart review. On arrival, patient is [afebrile, hemodynamically stable, satting appropriately, alert, oriented x4, GCS 15], moving all extremities spontaneously. Full physical exam performed and significant for completely benign abdominal exam, no tenderness on exam, diffuse back tenderness that is stable from baseline per patient. Differential includes but is not limited to UTI, pyelonephritis, kidney stone, vaginal bleeding. Workup initiated including UA. On re-evaluation, patient [remains afebrile, HD stable.] Laboratory workup independently interpreted by me and significant for too numerous to count WBCs and 2+ bacteria with negative nitrates.. CT abdomen pelvis to assess for kidney stone/intra-abdominal pathology was considered, but deemed unnecessary due to history and physical exam. Given patient history, exam and workup, patient's presentation most likely represents acute urinary tract infection, given intermittent abdominal/back pain, could reflect pyelonephritis. Will treat with Levaquin for possible complicated urinary tract infection. Patient is on flecainide, given this and EKG was obtained and shows appropriate QT interval. patient was given dose of levaquin in ED and was discharged in stable condition with prescription for levaquin. Return precautions given including for new or worsening symptoms. Recommend she follow-up with her PCP for reassessment. Procedures Risk/Benefits of Procedure(s) Were Explained: Yes Critical Care Critical Care Time Critical Care Time: No
[2023-07-19 00:34] LABS: Microscopic, Urine URINE MICROSCOPIC (MICROSCOPIC)
[2023-07-19 00:37] LABS: Appearance,Urine CLOUDY (Clear); Bilirubin,Urine Negative (Negative); Blood, Urine TRACE-I (Negative); Color,Urine YELLOW (Yellow); Glucose,Urine (UA) 2+ (Negative); Ketones,Urine TRACE (Negative); Leukocyte Esterase,Urine 2+ (Negative); Nitrate,Urine Negative (Negative); PH,Urine 6.5 (5.0-8.5); Protein,Urine TRACE (Negative); Specific Gravity, Urine >= 1.030 (1.005-1.030)
[2023-07-19 00:47] LABS: Bacteria,Urine 2+ /lpf; Hyaline Casts,Urine Occasional #/lpf (0); RBC,Urine Occasional #/hpf (0-3); WBC,Urine TNTC #/hpf (0-3)
[2023-07-19] MEDS: levoFLOXacin 750 MG TABLET PO (00:56)
--- NOTE | 2023-07-19 01:04 | ECG_ITS ---
APPROVED REPORT Exam: Resting ECG HR:82 bpm ECG Measurements Heart Rate 82 AXES TN 201 P 42 QRSd 102 QRS 80 QT 388 T 54 QTc 426 Conclusion SINUS RHYTHM NONSPECIFIC T-WAVE ABNORMALITY BORDERLINE ECG Electronically signed by : YVETTE RIVERA, 07/19/2023 11:42:00
[2023-07-19 01:10] VITALS: BP 116/84; PULSE 82; RESP 16; TEMP 36.5; O2SAT 98
--- NOTE | 2023-07-21 09:08 | PC.NURSE ---
preliminary urine culture discussed with dr craven, on levaquin 750, no new orders
== END 2023-07-19 01:11 | disposition home or self-care (01) ==
PROVIDERS: Emergency Provider Emergency Medicine; PCP Nurse Practitioner
DX: N39.0 Urinary tract infection, site not specified (principal); B96.29 Other Escherichia coli [E. coli] as the cause of diseases classified elsewhere; R10.31 Right lower quadrant pain; I10 Essential (primary) hypertension; E78.5 Hyperlipidemia, unspecified
CPT/HCPCS: 81001; 87086; 93005; 99283

== ENCOUNTER 2023-08-01 11:22 | Outpatient (POV) | payer OTHER, SELFPAY ==
--- NOTE | 2023-08-01 11:38 | EXP.PAIN.SOA ---
[facility] Pain Management SOAP Note Subjective:: Patient is a pleasant 53-year-old female who presents today for medication refill and follow-up. Today she rates her pain a 5 out of 10. Patient denies any new trauma or injury. Patient does state that her hips are bothering her a little bit more however she did recently get a job and was working. Patient did get SI injections back in June and states that she does feel like these are still continuing to provide improvement. Patient is currently managed with Percocet 10 mg 5 times a day and gabapentin 300 mg at bedtime. She denies any side effects from these medications. Her Evans has been reviewed and is appropriate. Review of Systems: General: No recent weight changes, no fever, no sleep disturbances Respiratory: No cough, no shortness of air, no recurring pulmonary infections Cardiovascular/peripheral vascular: No chest pain, no palpitations, no edema, no shortness of breath Gastrointestinal: No new onset incontinence, normal bowel movements reported Genitourinary: No new onset incontinence Musculoskeletal: Low back pain, bilateral hip pain Psychiatric: [Normal mood/affect] Neurological: [Denies weakness in extremities], [denies balance issues] Objective:: Physical Exam: General: Alert and oriented x3, no acute distress, pleasant and cooperative Lungs: Respirations even and unlabored, symmetrical chest expansion Eyes: PERRL Musculoskeletal: Flexion and extension of lumbar [spine] somewhat guarded secondary to pain, [antalgic gait noted] Neurological: Speech clear, no gross sensory deficit Assessment:: Degenerative disc disease of lumbar spine with lumbar radiculopathy symptoms, bilateral sacroiliitis Plan:: Patient is doing well overall with her current medication regimen. I will refill her Percocet 10 mg 5 times a day and gabapentin 300 mg at bedtime and provide a 1 month supply of this medication. Patient will return to clinic in 1 month for reevaluation of symptoms and plan of care. Risks and benefits of the medication have been explained in detail to the patient. The patient does understand the risk of dependence on the medication when given over a prolonged period. Patient has been advised of risks of oversedation with the prescribed medication. Narcan has been offered to the paitent in the event of oversedation. Patient has been advised that a family member should also be educated regarding administration of Narcan. The patient has been advised to consult with his/her primary care provider and pharmacist regarding drug-drug interaction of medications currently prescribed. Patient has been prescribed a controlled substance after being counseled on the medication, medication safety, and possible side effects. Opioid contract was reviewed and signed by the patient, and that they have agreed to all of the terms set forth by our compliance program. Patient has been instructed to contact the clinic with any concerns before the next appointment. Dr. Zelaya has reviewed this note and agrees with this plan of care. This note was dictated using voice recognition software and make contain errors or omissions. [facility] Disclaimer: The information contained in this section may have been updated after the patient was seen, as this information can be updated by other users. 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 (Updated 07/19/23 @ 00:54 by Jose Elias Kimball MD) History of back pain Sleep apnea Hyperlipidemia Hypertension Atrial fibrillation Family History Other Family history of cancer Family history of diabetes mellitus type II Family history of myocardial infarction Social History Smoking Status: Never smoker second hand exposure: No alcohol intake: never substance use type: denies use current occupational status: unemployed Travel in the last 8 weeks: None household members: spouse housing: house current occupational exposures/hazards: No caffeine: Yes
[2023-08-01 12:06] VITALS: BP 139/65; PULSE 85; RESP 16; O2SAT 97; BMI 42.5
== END 2023-08-01 23:59 | disposition home or self-care (01) ==
PROVIDERS: PCP Nurse Practitioner; Visit Provider Nurse Practitioner Family
DX: M51.16 Intervertebral disc disorders with radiculopathy, lumbar region (principal); M46.1 Sacroiliitis, not elsewhere classified
CPT/HCPCS: 99212; G0463

== ENCOUNTER 2023-08-29 10:43 | Outpatient (POV) | payer OTHER, SELFPAY ==
--- NOTE | 2023-08-29 10:56 | EXP.PAIN.SOA ---
[facility] Pain Management SOAP Note Subjective:: Patient is a pleasant 53-year-old female who presents today for follow-up and medication refill. Today she rates her pain a 6 out of 10. Patient denies any new trauma or injury. She does state that she feels like those SI injections that she did previously get in June are slowly wearing themselves off. Patient does state that she is concerned in the next month that they will be back to her baseline. Patient does state that those injections provided more than 80% relief and typically last around 3 months. Patient does state when these injections are given that she is much more functional and able to do more with overall decreased pain. Patient does feel like a lot of her sleep is more aggravated because she has started back working and doing more walking and standing. Patient is currently experiencing more aching, throbbing sensations that goes in and around her low back and bilateral hips and denies any radiating symptoms into her legs. Patient does state the pain will get to where it interferes with her ability perform activities of daily living such as cooking and cleaning. Patient is currently managed with Percocet 10 mg 5 times a day and gabapentin 300 mg at bedtime. She denies any side effects from these medications. Her Evans has been reviewed and is appropriate. Review of Systems: General: No recent weight changes, no fever, no sleep disturbances Respiratory: No cough, no shortness of air, no recurring pulmonary infections Cardiovascular/peripheral vascular: No chest pain, no palpitations, no edema, no shortness of breath Gastrointestinal: No new onset incontinence, normal bowel movements reported Genitourinary: No new onset incontinence Musculoskeletal: Low back pain, bilateral hip pain Psychiatric: [Normal mood/affect] Neurological: [Denies weakness in extremities], [denies balance issues] Objective:: Physical Exam: General: Alert and oriented x3, no acute distress, pleasant and cooperative Lungs: Respirations even and unlabored, symmetrical chest expansion Eyes: PERRL Musculoskeletal: Flexion and extension of lumbar [spine] somewhat guarded secondary to pain, [antalgic gait noted] point tenderness along bilateral SIs with positive bilateral Irina's, Cordell's, Gaenslen's, compression and distraction exam Neurological: Speech clear, no gross sensory deficit Assessment:: Degenerative disc disease of lumbar spine with lumbar radiculopathy symptoms, bilateral sacroiliitis Plan:: Patient is slowly starting to have more increased pain in her low back and bilateral hips. Patient did have point tenderness along her bilateral SIs and a positive bilateral Irina's, Cordell's, Gaenslen's, compression and distraction exam. I have discussed with patient that it may be beneficial to go ahead and get her on the schedule for repeat injections patient did previously have more than 80% relief with her last SI injections on June 17 and does typically get on average about 3 months relief with each of these. Patient's 3-month dick will be in September and she would like to go ahead and get scheduled for these. Risk and benefits were reviewed with the patient. I will refill the patient's Percocet and gabapentin and provide a 1 month supply of this medication. Patient will be scheduled for bilateral SI injections under fluoroscopy. Risks and benefits of the medication have been explained in detail to the patient. The patient does understand the risk of dependence on the medication when given over a prolonged period. Patient has been advised of risks of oversedation with the prescribed medication. Narcan has been offered to the paitent in the event of oversedation. Patient has been advised that a family member should also be educated regarding administration of Narcan. The patient has been advised to consult with his/her primary care provider and pharmacist regarding drug-drug interaction of medications currently prescribed. Patient has been prescribed a controlled substance after being counseled on the medication, medication safety, and possible side effects. Opioid contract was reviewed and signed by the patient, and that they have agreed to all of the terms set forth by our compliance program. Patient has been instructed to contact the clinic with any concerns before the next appointment. Dr. Zelaya has reviewed this note and agrees with this plan of care. This note was dictated using voice recognition software and make contain errors or omissions. [facility] Disclaimer: The information contained in this section may have been updated after the patient was seen, as this information can be updated by other users. 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 (Updated 07/19/23 @ 00:54 by Jose Elias Kimball MD) History of back pain Sleep apnea Hyperlipidemia Hypertension Atrial fibrillation Family History Other Family history of cancer Family history of diabetes mellitus type II Family history of myocardial infarction Social History Smoking Status: Never smoker second hand exposure: No alcohol intake: never substance use type: denies use current occupational status: other Travel in the last 8 weeks: None household members: spouse housing: house current occupational exposures/hazards: No caffeine: Yes
[2023-08-29 11:18] VITALS: BP 112/69; PULSE 84; RESP 18; O2SAT 96; BMI 38.4
== END 2023-08-29 23:59 | disposition home or self-care (01) ==
PROVIDERS: PCP Nurse Practitioner; Visit Provider Nurse Practitioner Family
DX: M51.16 Intervertebral disc disorders with radiculopathy, lumbar region (principal); M46.1 Sacroiliitis, not elsewhere classified
CPT/HCPCS: 99212; G0463

== ENCOUNTER 2023-09-07 13:03 | Emergency (ER) | payer OTHER, SELFPAY ==
[2023-09-07 13:40] VITALS: BP 112/75; PULSE 94; RESP 18; TEMP 37.1; O2SAT 97; BMI 39.1
[2023-09-07 14:07] LABS: UTC Strep Screen (Rapid) Negative (Negative)
--- NOTE | 2023-09-07 14:30 | ED_ITS ---
Discharge Plan Disposition Patient Disposition: Home, Self-Care Condition: Good Prescriptions Prescriptions: No Action medroxyprogesterone 2.5 tablet 2.5 mg PO DAILY Patient Comments: metoprolol ta-hydrochlorothiaz 1 EACH tablet 1 ea PO DAILY flecainide 50 MG tablet 50 mg PO DAILY omeprazole 20 capsule,delayed release(DR/EC) 20 mg PO DAILY Patient Comments: estrogens-methyltestosterone [EEMT] 0 tablet 1.25 - 2.5 mg PO DAILY Patient Comments: diclofenac sodium 75 MG tablet,delayed release (DR/EC) 75 mg PO BID loratadine 10 tablet 10 mg PO DAILY Patient Comments: ergocalciferol (vitamin D2) 2,000 UNIT tablet 2,000 unit PO WEEKLY cetirizine 10 MG tablet 10 mg PO DAILY pregabalin 150 MG capsule 150 mg PO BID lidocaine [Lidoderm] 5 % adhesive patch,medicated 1 patch topical DAILY Qty: 15 0RF Rx Instructions: leave on most painful area for up to 12 hrs methocarbamol 750 mg tablet 750 mg PO Q8H PRN (Reason: pain) Qty: 15 0RF gabapentin 300 mg capsule 300 mg PO HS Qty: 30 0RF oxycodone-acetaminophen [Percocet] 10-325 mg tablet 1 tab PO 5XDAY Qty: 150 0RF naloxone 4 MG spray,non-aerosol 4 mg NS ONCE MDD .. PRN (Reason: oversedation) Qty: 1 2RF Rx Instructions: gabapentin 800 MG tablet 800 mg PO TID duloxetine 60 MG capsule,delayed release(DR/EC) 60 mg PO DAILY ibuprofen 800 mg tablet 800 mg PO TID PRN (Reason: pain) 7 Days Qty: 20 0RF cyclobenzaprine 5 mg tablet 5 mg PO TID PRN (Reason: muscle spasm) 5 Days Qty: 15 0RF levofloxacin 750 mg tablet 750 mg PO DAILY 6 Days Qty: 6 0RF Referrals Follow up/Referrals: Juana Bailey APRN [Primary Care Provider] - See instructions Activity Restrictions/Add. Instructions Additional Instructions/Restrictions: If symptoms persist or worsen, return to the clinic. Clinical Impressions Clinical Impression: Acute pharyngitis Qualifiers: Pharyngitis/tonsillitis etiology: unspecified etiology Qualified Code(s): J02.9 - Acute pharyngitis, unspecified Instructions Patient Instructions: DI for Viral Pharyngitis Discharge ED Provider: Miriam Drew [facility] [place] HPI General Stated complaint: sore throat Mode of Arrival: Ambulatory Source of Information: Patient Limitations: No Limitations Time Seen by Provider: 09/07/23 14:18 Description of Symptoms (Recalled from Triage Doc. by RN): Pt's symptoms are sore throat. HEENT Symptoms (Recalled from RN notes): Yes Resp Symptoms (Recalled from RN notes): No Skin Symptoms (Recalled from RN notes): No MS Symptoms (Recalled from RN notes): No Functional Status (Recalled from RN notes): n/a History of Present Illness Provider Complaint: Pt reports being around kids with strep and she is currently having a sore throat. Related Data Home Medications Medication Instructions Recorded Confirmed diclofenac sodium 75 mg 75 mg PO BID CHRONIC PAIN 06/10/17 08/29/23 tablet,delayed release ergocalciferol (vitamin D2) 50 mcg 2,000 unit PO WEEKLY Supplement 06/10/17 08/29/23 (2,000 unit) tablet esterified 1.25 - 2.5 mg PO DAILY Supplement 06/10/17 08/29/23 estrogens-methyltestosterone 1.25 mg-2.5 mg tablet (EEMT) flecainide 50 mg tablet 50 mg PO DAILY UNKNOWN 06/10/17 08/29/23 loratadine 10 mg tablet 10 mg PO DAILY ALLERGIES 06/10/17 08/29/23 medroxyprogesterone 2.5 mg tablet 2.5 mg PO DAILY UNKNOWN 06/10/17 08/29/23 metoprolol tartrate 50 1 ea PO DAILY BLOOD PRESSURE 06/10/17 08/29/23 mg-hydrochlorothiazide 25 mg tablet omeprazole 20 mg capsule,delayed 20 mg PO DAILY GERD 06/10/17 08/29/23 release cetirizine 10 mg tablet 10 mg PO DAILY allergies 10/17/20 08/29/23 pregabalin 150 mg capsule 150 mg PO BID nerve pain 10/17/20 08/29/23 gabapentin 800 mg tablet 800 mg PO TID Pain 07/27/21 08/29/23 duloxetine 60 mg capsule,delayed 60 mg PO DAILY PERIPHERAL 09/21/21 08/29/23 release NEUROPATHY Previous Rx's Medication Instructions Recorded naloxone 4 mg/actuation nasal spray 4 mg NS ONCE PRN oversedation #1 mL 04/13/21 cyclobenzaprine 5 mg tablet 5 mg PO TID PRN muscle spasm 5 02/26/23 days #15 tabs ibuprofen 800 mg tablet 800 mg PO TID PRN pain 7 days #20 02/26/23 tabs lidocaine 5 % topical patch 1 patch topical DAILY #15 ea 03/02/23 (Lidoderm) methocarbamol 750 mg tablet 750 mg PO Q8H PRN pain #15 tabs 03/02/23 levofloxacin 750 mg tablet 750 mg PO DAILY 6 days #6 tabs 07/19/23 gabapentin 300 mg capsule 300 mg PO HS Pain #30 caps 08/29/23 oxycodone-acetaminophen 10 mg-325 1 tab PO 5XDAY Pain #150 tabs 08/29/23 mg tablet (Percocet) Allergies Allergy/AdvReac Type Severity Reaction Status Date / Time No Known Allergies Allergy Verified 09/07/23 13:50 Worker's Comp Is this a Worker's Comp case?: No [facility] Disclaimer: The information contained in this section may have been updated after the patient was seen, as this information can be updated by other users. 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 (Updated 09/07/23 @ 14:32 by Miriam Drew APRN) History of back pain Sleep apnea Hyperlipidemia Hypertension Atrial fibrillation Family History Other Family history of cancer Family history of diabetes mellitus type II Family history of myocardial infarction Social History Smoking Status: Never smoker second hand exposure: No alcohol intake: never substance use type: denies use current occupational status: other Travel in the last 8 weeks: None household members: spouse housing: house current occupational exposures/hazards: No caffeine: Yes ROS Obtained: Yes All systems reviewed & no additional complaints except as documented Constitutional Constitutional: Reports system reviewed and no additional complaints, except as documented and Reports malaise Eyes Eyes: Reports system reviewed and no additional complaints, except as documented ENT Ears, Nose, Mouth, and Throat: Reports system reviewed and no additional complaints, except as documented, Reports nasal discharge, Reports odynophagia and Reports sore throat Cardiovascular Cardiovascular: Reports system reviewed and no additional complaints, except as documented Respiratory Respiratory: Reports system reviewed and no additional complaints, except as documented Gastrointestinal Gastrointestingal: Reports system reviewed and no additional complaints, except as documented and odynophagia Genitourinary Female Genitourinary: Reports system reviewed and no additional complaints, exc ept as documented Musculoskeletal Musculoskeletal: Reports system reviewed and no additional complaints, except as documented Integumentary/Breasts Skin/Breast: Reports system reviewed and no additional complaints, except as documented Neurologic Neurologic: Reports system reviewed and no additional complaints, except as documented Endocrine Endocrine: Reports system reviewed and no additional complaints, except as documented Hematologic/Lymphatic Henatologic/Lymphatic: Reports system reviewed and no additional complaints, except as documented Allergic/Immunologic Allergic/Immunologic: Reports system reviewed and no additional complaints, except as documented Physical Exam General General appearance: alert and in no apparent distress Head Head exam: atraumatic and normocephalic Eye Eye exam: Present normal appearance Expanded ENT Exam External ear exam: Present normal external inspection Nasal speculum exam: Bilateral: normal Mouth exam: Present other Teeth exam: Present normal inspection Throat exam: Present tonsillar erythema Comment: Tongue is green in color. Pt reports that she dips snuff. Neck Neck exam: Present normal inspection Respiratory Respiratory exam: Present normal lung sounds bilaterally Cardiovascular Cardiovascular exam: Present regular rate and normal rhythm Abdominal Exam Abdominal exam: Present soft Back Exam Back exam: Present normal inspection Neurological Exam Neurological exam: Present alert and oriented X3 Psychiatric Psychiatric exam: Present normal affect and normal mood Skin Skin exam: Present warm, dry and intact Lymphatic Lymphatic Findings: no adenopathy Medical Decision Making Evans Inquiry Pt receiving controlled substance: No Vital Signs: 09/07/23 13:40 Temperature 98.7 F Temperature Source Oral Pulse Rate [Right Radial] 94 H Respiratory Rate 18 Blood Pressure [Right Arm] 112/75 Blood Pressure Mean [Right Arm] 87 Blood Pressure Source [Right Arm] Automatic Cuff Blood Pressure Position [Right Arm] Sitting 02 Sat by Pulse Oximetry 97 Oxygen Delivery Method Room Air Lab Data Lab results reviewed: Yes I reviewed the patient's lab results. Lab Results 09/07/23 13:47: Strep Scn Rapid Clinic Negative Orders (Tests/Meds): ORDERS Category Date Time Status Strep Screen Confirmation Stat Micro 09/07/23 13:47 Received
[2023-09-07 15:01] VITALS: BP 112/79; PULSE 94; RESP 18; TEMP 37.1; O2SAT 97
== END 2023-09-07 15:04 | disposition home or self-care (01) ==
PROVIDERS: Emergency Provider Nurse Practitioner Family; PCP Nurse Practitioner
DX: J02.9 Acute pharyngitis, unspecified (principal)
CPT/HCPCS: 87880; 99212; 99213; G0463

== ENCOUNTER 2023-09-08 11:46 | Emergency (ER) | payer OTHER, SELFPAY ==
[2023-09-08 12:50] VITALS: BP 108/64; PULSE 92; RESP 18; TEMP 37.2; O2SAT 95; BMI 38.8
--- NOTE | 2023-09-08 13:20 | ED_ITS ---
Discharge Plan Disposition Patient Disposition: Home, Self-Care Condition: Good Prescriptions Prescriptions: No Action medroxyprogesterone 2.5 tablet 2.5 mg PO DAILY Patient Comments: metoprolol ta-hydrochlorothiaz 1 EACH tablet 1 ea PO DAILY flecainide 50 MG tablet 50 mg PO DAILY omeprazole 20 capsule,delayed release(DR/EC) 20 mg PO DAILY Patient Comments: estrogens-methyltestosterone [EEMT] 0 tablet 1.25 - 2.5 mg PO DAILY Patient Comments: diclofenac sodium 75 MG tablet,delayed release (DR/EC) 75 mg PO BID loratadine 10 tablet 10 mg PO DAILY Patient Comments: ergocalciferol (vitamin D2) 2,000 UNIT tablet 2,000 unit PO WEEKLY cetirizine 10 MG tablet 10 mg PO DAILY pregabalin 150 MG capsule 150 mg PO BID lidocaine [Lidoderm] 5 % adhesive patch,medicated 1 patch topical DAILY Qty: 15 0RF Rx Instructions: leave on most painful area for up to 12 hrs methocarbamol 750 mg tablet 750 mg PO Q8H PRN (Reason: pain) Qty: 15 0RF gabapentin 300 mg capsule 300 mg PO HS Qty: 30 0RF oxycodone-acetaminophen [Percocet] 10-325 mg tablet 1 tab PO 5XDAY Qty: 150 0RF naloxone 4 MG spray,non-aerosol 4 mg NS ONCE MDD .. PRN (Reason: oversedation) Qty: 1 2RF Rx Instructions: gabapentin 800 MG tablet 800 mg PO TID duloxetine 60 MG capsule,delayed release(DR/EC) 60 mg PO DAILY ibuprofen 800 mg tablet 800 mg PO TID PRN (Reason: pain) 7 Days Qty: 20 0RF cyclobenzaprine 5 mg tablet 5 mg PO TID PRN (Reason: muscle spasm) 5 Days Qty: 15 0RF levofloxacin 750 mg tablet 750 mg PO DAILY 6 Days Qty: 6 0RF Referrals Follow up/Referrals: Juana Bailey APRN [Primary Care Provider] - See instructions Activity Restrictions/Add. Instructions Additional Instructions/Restrictions: No sign of a bacterial infection. Likely viral. Viruses can take 7-14 days to run their course. Nasal saline and bulb syringe or nose Leti to remove nasal drainage to help with nasal congestion. Hard to eat, drink, sleep with nasal congestion so important to keep this cleaned out. Monitor temp. Tylenol or Motrin as needed for pain or fever Encourage fluids, water, Gatorade, Powerade, Pedialyte if infant/toddler/child Warm salt water gargles Warm fluids Sore throat lozenges Sleep elevated Humidifier/vaporizer Follow-up immediately for new or worsening symptoms or no noticeable improvement over the next 48-72 hours. Clinical Impressions Clinical Impression: Upper respiratory infection Qualifiers: URI type: unspecified URI Qualified Code(s): J06.9 - Acute upper respiratory infection, unspecified Instructions Patient Instructions: DI for Viral Upper Respiratory Infection -- Adult Discharge ED Provider: Laura ([facility])Antonino [facility] [place] HPI General Stated complaint: sore throat, headache Mode of Arrival: Ambulatory Source of Information: Patient Limitations: No Limitations Time Seen by Provider: 09/08/23 13:20 Description of Symptoms (Recalled from Triage Doc. by RN): Pt's symptoms are GAYTAN, sore throat, and cough. HEENT Symptoms (Recalled from RN notes): Yes Resp Symptoms (Recalled from RN notes): No Skin Symptoms (Recalled from RN notes): No MS Symptoms (Recalled from RN notes): No Functional Status (Recalled from RN notes): n/a History of Present Illness Provider Complaint: 53 yr old female presents with c/o GAYTAN, body aches, sore throat, and cough for 2 days Related Data Home Medications Medication Instructions Recorded Confirmed diclofenac sodium 75 mg 75 mg PO BID CHRONIC PAIN 06/10/17 08/29/23 tablet,delayed release ergocalciferol (vitamin D2) 50 mcg 2,000 unit PO WEEKLY Supplement 06/10/17 08/29/23 (2,000 unit) tablet esterified 1.25 - 2.5 mg PO DAILY Supplement 06/10/17 08/29/23 estrogens-methyltestosterone 1.25 mg-2.5 mg tablet (EEMT) flecainide 50 mg tablet 50 mg PO DAILY UNKNOWN 06/10/17 08/29/23 loratadine 10 mg tablet 10 mg PO DAILY ALLERGIES 06/10/17 08/29/23 medroxyprogesterone 2.5 mg tablet 2.5 mg PO DAILY UNKNOWN 06/10/17 08/29/23 metoprolol tartrate 50 1 ea PO DAILY BLOOD PRESSURE 06/10/17 08/29/23 mg-hydrochlorothiazide 25 mg tablet omeprazole 20 mg capsule,delayed 20 mg PO DAILY GERD 06/10/17 08/29/23 release cetirizine 10 mg tablet 10 mg PO DAILY allergies 10/17/20 08/29/23 pregabalin 150 mg capsule 150 mg PO BID nerve pain 10/17/20 08/29/23 gabapentin 800 mg tablet 800 mg PO TID Pain 07/27/21 08/29/23 duloxetine 60 mg capsule,delayed 60 mg PO DAILY PERIPHERAL 09/21/21 08/29/23 release NEUROPATHY Previous Rx's Medication Instructions Recorded naloxone 4 mg/actuation nasal spray 4 mg NS ONCE PRN oversedation #1 mL 04/13/21 cyclobenzaprine 5 mg tablet 5 mg PO TID PRN muscle spasm 5 02/26/23 days #15 tabs ibuprofen 800 mg tablet 800 mg PO TID PRN pain 7 days #20 02/26/23 tabs lidocaine 5 % topical patch 1 patch topical DAILY #15 ea 03/02/23 (Lidoderm) methocarbamol 750 mg tablet 750 mg PO Q8H PRN pain #15 tabs 03/02/23 levofloxacin 750 mg tablet 750 mg PO DAILY 6 days #6 tabs 07/19/23 gabapentin 300 mg capsule 300 mg PO HS Pain #30 caps 08/29/23 oxycodone-acetaminophen 10 mg-325 1 tab PO 5XDAY Pain #150 tabs 08/29/23 mg tablet (Percocet) Allergies Allergy/AdvReac Type Severity Reaction Status Date / Time No Known Allergies Allergy Verified 09/08/23 13:14 Worker's Comp Is this a Worker's Comp case?: No [facility] Disclaimer: The information contained in this section may have been updated after the patient was seen, as this information can be updated by other users. 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 , [employer]) History of back pain Sleep apnea Hyperlipidemia Hypertension Atrial fibrillation Family History , [employer]) Family history of cancer Family history of diabetes mellitus type II Family history of myocardial infarction Social History , [employer]) Smoking Status: Never smoker second hand exposure: No alcohol intake: never substance use type: denies use current occupational status: other Travel in the last 8 weeks: None household members: spouse housing: house current occupational exposures/hazards: No caffeine: Yes ROS Obtained: Yes All systems reviewed & no additional complaints except as documented Constitutional Constitutional: Reports system reviewed and no additional complaints, except as documented, Reports as per HPI, Reports body ache and Reports chills Eyes Eyes: Reports system reviewed and no additional complaints, except as documented ENT Ears, Nose, Mouth, and Throat: Reports system reviewed and no additional complaints, except as documented, Reports as per HPI, Reports nasal congestion, Reports nasal discharge, Reports sinus pain, Reports sinus pressure and Reports sore throat Cardiovascular Cardiovascular: Reports system reviewed and no additional complaints, except as documented Respiratory Respiratory: Reports system reviewed and no additional complaints, except as documented Musculoskeletal Musculoskeletal: Reports system reviewed and no additional complaints, except as documented Integumentary/Breasts Skin/Breast: Reports system reviewed and no additional complaints, except as documented Neurologic Neurologic: Reports system reviewed and no additional complaints, except as documented Endocrine Endocrine: Reports system reviewed and no additional complaints, except as documented Allergic/Immunologic Allergic/Immunologic: Reports system reviewed and no additional complaints, except as documented and Reports as per HPI Physical Exam General General appearance: alert and in no apparent distress Head Head exam: atraumatic Eye Eye exam: Present normal appearance and PERRL ENT ENT exam: Present normal exam, normal oropharynx, mucous membranes moist and TM's normal bilaterally Respiratory Respiratory exam: Present normal lung sounds bilaterally Cardiovascular Cardiovascular exam: Present regular rate and normal rhythm Neurological Exam Neurological exam: Present alert and oriented X3 Skin Skin exam: Present warm and intact Medical Decision Making Medical Records Medical records reviewed: Yes I reviewed the patient's medical records. Evans Inquiry Pt receiving controlled substance: No Evans was queried for this patient: No Vital Signs: 09/08/23 12:50 Temperature 99.0 F Temperature Source Oral Pulse Rate [Right Radial] 92 H Respiratory Rate 18 Blood Pressure [Right Arm] 108/64 L Blood Pressure Mean [Right Arm] 78 Blood Pressure Source [Right Arm] Automatic Cuff Blood Pressure Position [Right Arm] Sitting 02 Sat by Pulse Oximetry 95 Oxygen Delivery Method Room Air
[2023-09-08 13:22] LABS: UTC Strep Screen (Rapid) Negative (Negative)
--- NOTE | 2023-09-08 13:29 | PC.NURSE ---
Sent rapid up to lab via tube system
[2023-09-08 13:31] LABS: Coronavirus 19, PCR Not Detected (NotDetected); Influenza A, PCR Not Detected (NotDetected); Influenza B, PCR Not Detected (NotDetected)
[2023-09-08 14:06] LABS: UTC Influenza A Antigen Negative (Negative); UTC Influenza B Antigen Negative (Negative)
[2023-09-08 14:13] VITALS: BP 108/64; PULSE 92; RESP 18; TEMP 37.2; O2SAT 95
== END 2023-09-08 14:13 | disposition home or self-care (01) ==
PROVIDERS: Emergency Provider Nurse Practitioner Family; PCP Nurse Practitioner
DX: R51.9 Headache, unspecified (principal); R05.9 Cough, unspecified; R07.0 Pain in throat; J06.9 Acute upper respiratory infection, unspecified
CPT/HCPCS: 87636; 87804; 87880; 99212; 99213; G0463

== ENCOUNTER 2023-10-01 08:49 | Day surgery (SDC) | payer OTHER, SELFPAY ==
[2023-10-01 09:07] VITALS: BP 102/68; PULSE 86; RESP 16; TEMP 36.4; O2SAT 97; BMI 37.9
[2023-10-01] MEDS: BUPIVACAINE 0.25% 10ML INJ 25 MG IJ (09:19)
[2023-10-01] MEDS: methylPREDNISolone ACETATE 80MG/ML VIAL 80 MG (09:19)
[2023-10-01] MEDS: LIDOCAINE 1% 5ML PF VIAL 5 ML (09:19)
[2023-10-01 09:20] VITALS: BP 122/78; PULSE 78; RESP 18; O2SAT 98
[2023-10-01 09:21] VITALS: BP 122/78; PULSE 78; RESP 18; O2SAT 98
--- NOTE | 2023-10-01 09:22 | P.PCN_ITS ---
Procedure Date: 10/01/23 Time: 09:10 Anesthesiologist:: Kyle Flores CRNA Complications:: None Pre-procedure Diagnosis:: Bilateral sacroiliitis. Post-procedure Diagnosis:: Same. Indications for Procedure:: Patient is a very pleasant 53-year-old female comes to clinic today for bilateral sacroiliac joint injections of cortisone. She has had significant improvement in her overall posterior hip, low lumbar back pain with previous bilateral sacroiliac joint injections. Upon examination she has extreme point tenderness over the bilateral sacroiliac joints. She reports having difficulty transitioning from sitting to standing. She rates her pain 8/10. Procedure Details:: Procedure: Bilateral sacroiliac joint injections under fluoroscopy Informed consent was obtained and the risks and benefits of the procedure were explained to the patient.~ The patient was taken to the procedure room and noninvasive monitors were placed including a noninvasive blood pressure cuff and pulse oximeter.~ The patient was placed prone on the procedure table. Both hips were cleansed using Betadine as a cleansing solution. C-arm fluoroscopy was used to view the right sacroiliac joint.~ The skin and subcutaneous tissues were anesthetized using lidocaine 1.5% and a 25-gauge needle.~ After this, a 22-gauge spinal needle was inserted under fluoroscopic guidance into the inferior aspect of the right sacroiliac joint.~ Omnipaque dye was injected and good spread was seen throughout the joint.~ After this, approximately 5 mL of bupivacaine, 0.25% and Depo-Medrol, 40 mg was incrementally injected into the right sacroiliac joint. We then moved to the left sacroiliac joint.~ The skin and subcutaneous tissues were anesthetized using lidocaine 1.5% and a 25-gauge needle.~ After this, a 22- gauge spinal needle was inserted under fluoroscopic guidance into the inferior aspect of the left sacroiliac joint.~ Omnipaque dye was injected and good spread was seen throughout the joint. After this, approximately 5 mL of bupivacaine, 0.25% and Depo-Medrol, 40 mg was incrementally injected into the left sacroiliac joint.~ The patient tolerated the procedure well with no complications. The patient was observed in the Pain Clinic and then was discharged home neurologically intact. Plan and Disposition:: Patient was discharged without incident.
[2023-10-01 09:29] VITALS: BP 127/81; PULSE 83; RESP 18; O2SAT 100
== END 2023-10-01 09:30 | disposition home or self-care (01) ==
PROVIDERS: PCP Nurse Practitioner; Visit Provider Nurse Anesthetist, Certified Registered
DX: M46.1 Sacroiliitis, not elsewhere classified (principal)
CPT/HCPCS: 27096; G0260; J1010

== ENCOUNTER 2023-10-28 11:13 | Outpatient (POV) | payer OTHER, SELFPAY ==
--- NOTE | 2023-10-28 11:22 | EXP.PAIN.SOA ---
[facility] Disclaimer: The information contained in this section may have been updated after the patient was seen, as this information can be updated by other users. 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 Today she rates her pain a 3 out of 10. Patient denies any new trauma or injury. She does state that the injection significantly improved her overall low back and hip pain. She states she has been able to increase her activity with overall decreased pain and had at least 80% improvement. she is currently managed with Percocet 10 mg 5 times a day and gabapentin 300 mg at bedtime. She denies any side effects from these medications. Her Evans has been reviewed and is appropriate. Review of Systems: General: No recent weight changes, no fever, no sleep disturbances Respiratory: No cough, no shortness of air, no recurring pulmonary infections Cardiovascular/peripheral vascular: No chest pain, no palpitations, no edema, no shortness of breath Gastrointestinal: No new onset incontinence, normal bowel movements reported Genitourinary: No new onset incontinence Musculoskeletal: Low back pain Psychiatric: [Normal mood/affect] Neurological: [Denies weakness in extremities], [denies balance issues] Pain at rest (0-10 scale): 3 Objective Objective:: Physical Exam: General: Alert and oriented x3, no acute distress, pleasant and cooperative Lungs: Respirations even and unlabored, symmetrical chest expansion Eyes: PERRL Musculoskeletal: Flexion and extension of lumbar [spine] somewhat guarded secondary to pain, [antalgic gait noted] Neurological: Speech clear, no gross sensory deficit Has patient had previous pain injection?: Yes Percent improvement in pain since last injection: 80% Conservative treatment options previously tried: Home exercise plan Length of treatment: Longer than 6 weeks and Prescription medications Length of treatment: Longer than 6 weeks Meds Home Medications and Allergies Home Medications Medication Instructions Recorded Confirmed Type diclofenac sodium 75 mg 75 mg PO BID CHRONIC PAIN 06/10/17 10/01/23 History tablet,delayed release ergocalciferol (vitamin D2) 50 mcg 2,000 unit PO WEEKLY Supplement 06/10/17 10/01/23 History (2,000 unit) tablet esterified 1.25 - 2.5 mg PO DAILY Supplement 06/10/17 10/01/23 History estrogens-methyltestosterone 1.25 mg-2.5 mg tablet (EEMT) flecainide 50 mg tablet 50 mg PO DAILY UNKNOWN 06/10/17 10/01/23 History loratadine 10 mg tablet 10 mg PO DAILY ALLERGIES 06/10/17 10/01/23 History medroxyprogesterone 2.5 mg tablet 2.5 mg PO DAILY UNKNOWN 06/10/17 10/01/23 History metoprolol tartrate 50 1 ea PO DAILY BLOOD PRESSURE 06/10/17 10/01/23 History mg-hydrochlorothiazide 25 mg tablet omeprazole 20 mg capsule,delayed 20 mg PO DAILY GERD 06/10/17 10/01/23 History release cetirizine 10 mg tablet 10 mg PO DAILY allergies 10/17/20 10/01/23 History pregabalin 150 mg capsule 150 mg PO BID nerve pain 10/17/20 10/01/23 History naloxone 4 mg/actuation nasal spray 4 mg NS ONCE PRN oversedation #1 mL 04/13/21 10/01/23 Rx duloxetine 60 mg capsule,delayed 60 mg PO DAILY PERIPHERAL 09/21/21 10/01/23 History release NEUROPATHY cyclobenzaprine 5 mg tablet 5 mg PO TID PRN muscle spasm 5 02/26/23 10/01/23 Rx days #15 tabs ibuprofen 800 mg tablet 800 mg PO TID PRN pain 7 days #20 02/26/23 10/01/23 Rx tabs lidocaine 5 % topical patch 1 patch topical DAILY #15 ea 03/02/23 10/01/23 Rx (Lidoderm) methocarbamol 750 mg tablet 750 mg PO Q8H PRN pain #15 tabs 03/02/23 10/01/23 Rx levofloxacin 750 mg tablet 750 mg PO DAILY 6 days #6 tabs 07/19/23 10/01/23 Rx gabapentin 300 mg capsule 300 mg PO HS Pain #30 caps 10/02/23 Rx oxycodone-acetaminophen 10 mg-325 1 tab PO 5XDAY Pain #150 tabs 10/02/23 Rx mg tablet (Percocet) New Prescriptions to Start Prescriptions: Allergies Allergy/AdvReac Type Severity Reaction Status Date / Time No Known Allergies Allergy Verified 09/08/23 13:14 Assessment and Plan *Assessment and plan (1) Degenerative disc disease, lumbar: Status: Acute Category: Medical Code(s): M51.36 - Other intervertebral disc degeneration, lumbar region (2) Lumbar radiculopathy: Status: Acute Category: Medical Code(s): M54.16 - Radiculopathy, lumbar region Plan Patient has had significant improvement following her SI injections and does not require any additional injection therapy at this time. I will refill the patient's Percocet and gabapentin and provide a 1 month supply of this medication. Patient will return to clinic in 1 month for reevaluation of symptoms and plan of care. Risks and benefits of the medication have been explained in detail to the patient. The patient does understand the risk of dependence on the medication when given over a prolonged period. Patient has been advised of risks of oversedation with the prescribed medication. Narcan has been offered to the paitent in the event of oversedation. Patient has been advised that a family member should also be educated regarding administration of Narcan. The patient has been advised to consult with his/her primary care provider and pharmacist regarding drug-drug interaction of medications currently prescribed. Patient has been prescribed a controlled substance after being counseled on the medication, medication safety, and possible side effects. Opioid contract was reviewed and signed by the patient, and that they have agreed to all of the terms set forth by our compliance program. Patient has been instructed to contact the clinic with any concerns before the next appointment. Dr. Zelaya has reviewed this note and agrees with this plan of care. This note was dictated using voice recognition software and make contain errors or omissions.
[2023-10-28 11:45] VITALS: BP 128/81; PULSE 91; RESP 18; O2SAT 94; BMI 37.3
== END 2023-10-28 23:59 | disposition home or self-care (01) ==
PROVIDERS: PCP Nurse Practitioner; Visit Provider Nurse Practitioner Family
DX: M51.16 Intervertebral disc disorders with radiculopathy, lumbar region (principal); Z79.899 Other long term (current) drug therapy
CPT/HCPCS: 99212; G0463

== ENCOUNTER 2023-11-28 11:32 | Outpatient (POV) | payer OTHER, SELFPAY ==
[2023-11-28 11:38] VITALS: BP 116/70; PULSE 90; RESP 16; O2SAT 95; BMI 36.4
--- NOTE | 2023-11-28 11:57 | A.OFFVIS_ITS ---
[facility] Disclaimer: The information contained in this section may have been updated after the patient was seen, as this information can be updated by other users. 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 Today she rates her pain a 4 out of 10. She denies any new trauma or injury. Patient does state that she is still losing weight which is making her feel better and that she is still doing her a job which she does really like. Patient is currently managed with Percocet 10 mg 5 times a day and gabapentin 300 mg at bedtime. She denies any side effects from this medication. Her Evans has been reviewed and is appropriate. Review of Systems: General: No recent weight changes, no fever, no sleep disturbances Respiratory: No cough, no shortness of air, no recurring pulmonary infections Cardiovascular/peripheral vascular: No chest pain, no palpitations, no edema, no shortness of breath Gastrointestinal: No new onset incontinence, normal bowel movements reported Genitourinary: No new onset incontinence Musculoskeletal: Low back pain Psychiatric: [Normal mood/affect] Neurological: [Denies weakness in extremities], [denies balance issues] Pain at rest (0-10 scale): 4 Objective Objective:: Physical Exam: General: Alert and oriented x3, no acute distress, pleasant and cooperative Lungs: Respirations even and unlabored, symmetrical chest expansion Eyes: PERRL Musculoskeletal: Flexion and extension of lumbar [spine] somewhat guarded secondary to pain, [antalgic gait noted] Neurological: Speech clear, no gross sensory deficit Has patient had previous pain injection?: No Conservative treatment options previously tried: Prescription medications Length of treatment: Longer than 6 weeks Meds Home Medications and Allergies Home Medications ?Medication ?Instructions ?Recorded ?Confirmed ?Type diclofenac sodium 75 mg 75 mg PO BID CHRONIC PAIN 06/10/17 11/28/23 History tablet,delayed release ergocalciferol (vitamin D2) 50 mcg 2,000 unit PO WEEKLY Supplement 06/10/17 11/28/23 History (2,000 unit) tablet esterified 1.25 - 2.5 mg PO DAILY Supplement 06/10/17 11/28/23 History estrogens-methyltestosterone 1.25 mg-2.5 mg tablet (EEMT) flecainide 50 mg tablet 50 mg PO DAILY UNKNOWN 06/10/17 11/28/23 History loratadine 10 mg tablet 10 mg PO DAILY ALLERGIES 06/10/17 11/28/23 History medroxyprogesterone 2.5 mg tablet 2.5 mg PO DAILY UNKNOWN 06/10/17 11/28/23 History metoprolol tartrate 50 1 ea PO DAILY BLOOD PRESSURE 06/10/17 11/28/23 History mg-hydrochlorothiazide 25 mg tablet omeprazole 20 mg capsule,delayed 20 mg PO DAILY GERD 06/10/17 11/28/23 History release cetirizine 10 mg tablet 10 mg PO DAILY allergies 10/17/20 11/28/23 History pregabalin 150 mg capsule 150 mg PO BID nerve pain 10/17/20 11/28/23 History naloxone 4 mg/actuation nasal spray 4 mg NS ONCE PRN oversedation #1 mL 04/13/21 11/28/23 Rx duloxetine 60 mg capsule,delayed 60 mg PO DAILY PERIPHERAL 09/21/21 11/28/23 History release NEUROPATHY cyclobenzaprine 5 mg tablet 5 mg PO TID PRN muscle spasm 5 02/26/23 11/28/23 Rx days #15 tabs ibuprofen 800 mg tablet 800 mg PO TID PRN pain 7 days #20 02/26/23 11/28/23 Rx tabs lidocaine 5 % topical patch 1 patch topical DAILY #15 ea 03/02/23 11/28/23 Rx (Lidoderm) methocarbamol 750 mg tablet 750 mg PO Q8H PRN pain #15 tabs 03/02/23 11/28/23 Rx levofloxacin 750 mg tablet 750 mg PO DAILY 6 days #6 tabs 04/05/24 08/15/24 Rx gabapentin 300 mg capsule 300 mg PO HS Pain #30 caps 10/28/23 11/28/23 Rx oxycodone-acetaminophen 10 mg-325 1 tab PO 5XDAY Pain #150 tabs 10/28/23 11/28/23 Rx mg tablet (Percocet) New Prescriptions to Start Prescriptions: Allergies Allergy/AdvReac Type Severity Reaction Status Date / Time No Known Allergies Allergy Verified 09/08/23 13:14 Assessment and Plan *Assessment and plan (1) Lumbar radiculopathy: Status: Acute Category: Medical Code(s): M54.16 - Radiculopathy, lumbar region (2) Degenerative disc disease, lumbar: Status: Acute Category: Medical Code(s): M51.36 - Other intervertebral disc degeneration, lumbar region Plan I will refill the patient's Percocet and gabapentin and provide a 1 month supply of this medication. Patient will return to clinic in 1 month for reevaluation of symptoms and plan of care. Risks and benefits of the medication have been explained in detail to the patient. The patient does understand the risk of dependence on the medication when given over a prolonged period. Patient has been advised of risks of oversedation with the prescribed medication. Narcan has been offered to the paitent in the event of oversedation. Patient has been advised that a family member should also be educated regarding administration of Narcan. The patient has been advised to consult with his/her primary care provider and pharmacist regarding drug-drug interaction of medications currently prescribed. Patient has been prescribed a controlled substance after being counseled on the medication, medication safety, and possible side effects. Opioid contract was reviewed and signed by the patient, and that they have agreed to all of the terms set forth by our compliance program. Patient has been instructed to contact the clinic with any concerns before the next appointment. Dr. Zelaya has reviewed this note and agrees with this plan of care. This note was dictated using voice recognition software and make contain errors or omissions.
== END 2023-11-28 23:59 | disposition home or self-care (01) ==
PROVIDERS: Visit Provider Nurse Practitioner Family
DX: M51.16 Intervertebral disc disorders with radiculopathy, lumbar region (principal); Z79.899 Other long term (current) drug therapy
CPT/HCPCS: 99212; G0463

== ENCOUNTER 2024-01-02 15:16 | Outpatient (POV) | payer OTHER, SELFPAY ==
--- NOTE | 2024-01-02 15:57 | A.OFFVIS_ITS ---
[facility] Disclaimer: The information contained in this section may have been updated after the patient was seen, as this information can be updated by other users. 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 Today she rates her pain a 7 out of 10. Patient denies any new trauma or injury. She does state that she still has her same pains but that she has recently had a little bit more of pain in and around her neck and denies any radiating symptoms. Patient states that she is not sure if it is her work that is may be aggravating some of those symptoms. She does state that she went to her primary care and they did do a steroid injection and that seemed to really help over the last couple of weeks. Patient is currently managed with Percocet 10 mg 5 times a day and gabapentin 300 mg at bedtime. She denies any side effects from this medication. Her Evans has been reviewed and is appropriate. Review of Systems: General: No recent weight changes, no fever, no sleep disturbances Respiratory: No cough, no shortness of air, no recurring pulmonary infections Cardiovascular/peripheral vascular: No chest pain, no palpitations, no edema, no shortness of breath Gastrointestinal: No new onset incontinence, normal bowel movements reported Genitourinary: No new onset incontinence Musculoskeletal: Neck pain, low back pain Psychiatric: [Normal mood/affect] Neurological: [Denies weakness in extremities], [denies balance issues] Pain at rest (0-10 scale): 7 Objective Objective:: Physical Exam: General: Alert and oriented x3, no acute distress, pleasant and cooperative Lungs: Respirations even and unlabored, symmetrical chest expansion Eyes: PERRL Musculoskeletal: Flexion and extension of lumbar [spine] somewhat guarded secondary to pain, [antalgic gait noted] Neurological: Speech clear, no gross sensory deficit Has patient had previous pain injection?: No Conservative treatment options previously tried: Home exercise plan Length of treatment: Longer than 6 weeks Meds Home Medications and Allergies Home Medications ?Medication ?Instructions ?Recorded ?Confirmed ?Type diclofenac sodium 75 mg 75 mg PO BID CHRONIC PAIN 06/10/17 11/28/23 History tablet,delayed release ergocalciferol (vitamin D2) 50 mcg 2,000 unit PO WEEKLY Supplement 06/10/17 11/28/23 History (2,000 unit) tablet esterified 1.25 - 2.5 mg PO DAILY Supplement 06/10/17 11/28/23 History estrogens-methyltestosterone 1.25 mg-2.5 mg tablet (EEMT) flecainide 50 mg tablet 50 mg PO DAILY UNKNOWN 06/10/17 11/28/23 History loratadine 10 mg tablet 10 mg PO DAILY ALLERGIES 06/10/17 11/28/23 History medroxyprogesterone 2.5 mg tablet 2.5 mg PO DAILY UNKNOWN 06/10/17 11/28/23 History metoprolol tartrate 50 1 ea PO DAILY BLOOD PRESSURE 06/10/17 11/28/23 History mg-hydrochlorothiazide 25 mg tablet omeprazole 20 mg capsule,delayed 20 mg PO DAILY GERD 06/10/17 11/28/23 History release cetirizine 10 mg tablet 10 mg PO DAILY allergies 10/17/20 11/28/23 History pregabalin 150 mg capsule 150 mg PO BID nerve pain 10/17/20 11/28/23 History naloxone 4 mg/actuation nasal spray 4 mg NS ONCE PRN oversedation #1 mL 04/13/21 11/28/23 Rx duloxetine 60 mg capsule,delayed 60 mg PO DAILY PERIPHERAL 09/21/21 11/28/23 History release NEUROPATHY cyclobenzaprine 5 mg tablet 5 mg PO TID PRN muscle spasm 5 02/26/23 11/28/23 Rx days #15 tabs ibuprofen 800 mg tablet 800 mg PO TID PRN pain 7 days #20 02/26/23 11/28/23 Rx tabs lidocaine 5 % topical patch 1 patch topical DAILY #15 ea 03/02/23 11/28/23 Rx (Lidoderm) methocarbamol 750 mg tablet 750 mg PO Q8H PRN pain #15 tabs 03/02/23 11/28/23 Rx levofloxacin 750 mg tablet 750 mg PO DAILY 6 days #6 tabs 07/19/23 11/28/23 Rx gabapentin 300 mg capsule 300 mg PO HS Pain #30 caps 11/28/23 Rx oxycodone-acetaminophen 10 mg-325 1 tab PO 5XDAY Pain #150 tabs 11/28/23 Rx mg tablet (Percocet) New Prescriptions to Start Prescriptions: Allergies Allergy/AdvReac Type Severity Reaction Status Date / Time No Known Allergies Allergy Verified 09/08/23 13:14 Assessment and Plan *Assessment and plan (1) Lumbar radiculopathy: Status: Acute Category: Medical Code(s): M54.16 - Radiculopathy, lumbar region (2) Degenerative disc disease, lumbar: Status: Acute Category: Medical Code(s): M51.36 - Other intervertebral disc degeneration, lumbar region Plan I will refill the patient's Percocet and gabapentin and provide a 1 month supply of this medication. Patient will return to clinic in 1 month for reevaluation of symptoms and plan of care. Risks and benefits of the medication have been explained in detail to the patient. The patient does understand the risk of dependence on the medication when given over a prolonged period. Patient has been advised of risks of oversedation with the prescribed medication. Narcan has been offered to the paitent in the event of oversedation. Patient has been advised that a family member should also be educated regarding administration of Narcan. The patient has been advised to consult with his/her primary care provider and pharmacist regarding drug-drug interaction of medications currently prescribed. Patient has been prescribed a controlled substance after being counseled on the medication, medication safety, and possible side effects. Opioid contract was reviewed and signed by the patient, and that they have agreed to all of the terms set forth by our compliance program. Patient has been instructed to contact the clinic with any concerns before the next appointment. Dr. Zelaya has reviewed this note and agrees with this plan of care. This note was dictated using voice recognition software and make contain errors or omissions.
[2024-01-02 15:58] VITALS: BP 118/79; PULSE 88; RESP 18; O2SAT 96; BMI 35.7
== END 2024-01-02 23:59 | disposition home or self-care (01) ==
PROVIDERS: PCP Nurse Practitioner; Visit Provider Nurse Practitioner Family
DX: M51.16 Intervertebral disc disorders with radiculopathy, lumbar region (principal); Z79.899 Other long term (current) drug therapy
CPT/HCPCS: 99212; G0463

== ENCOUNTER 2024-01-28 08:11 | Emergency (ER) | payer OTHER, SELFPAY ==
[2024-01-28 08:15] VITALS: BP 111/57; PULSE 108; RESP 20; TEMP 37.2; O2SAT 95; BMI 36.1
--- NOTE | 2024-01-28 08:36 | ED_ITS ---
Discharge Plan Disposition Patient Disposition: Home, Self-Care Condition: Good Prescriptions Prescriptions: New amoxicillin 875 mg tablet 875 mg PO Q12H Qty: 20 0RF benzonatate 100 mg capsule 100 mg PO TIDP PRN (Reason: Cough) Qty: 30 0RF methylprednisolone 4 mg Tablets,Dose Pack 4 mg PO DIRECTED 6 Days Qty: 21 0RF Rx Instructions: Take 1 pack as directed for 6 days No Action trazodone 50 mg tablet 50 mg PO DAILY oxycodone-acetaminophen 10-325 mg tablet 1 tab PO DAILY flecainide 50 mg tablet 50 mg PO DAILY metoprolol tartrate 50 mg tablet 50 mg PO DAILY gabapentin 300 mg capsule 300 mg PO DAILY omeprazole 20 mg capsule,delayed release(DR/EC) 20 mg PO DAILY allopurinol 300 mg tablet 300 mg PO DAILY hydrochlorothiazide 25 mg tablet 25 mg PO DAILY ergocalciferol (vitamin D2) 1,250 mcg (50,000 unit) capsule 1,250 mcg PO WEEKLY loratadine 10 mg tablet 10 mg PO DAILY ezetimibe 10 mg tablet 10 mg PO DAILY dapagliflozin propanediol [Farxiga] 10 mg tablet 10 mg PO DAILY Referrals Follow up/Referrals: Juana Bailey APRN [Primary Care Provider] - See instructions Activity Restrictions/Add. Instructions Additional Instructions/Restrictions: Drink plenty of fluids. Take tylenol or ibuprofen for pain or fever. Take the medications as directed. Follow up with your regular doctor. GO TO THE ER FOR ANY WORSENING SYMPTOMS Clinical Impressions Clinical Impression: Bronchitis, Acute viral syndrome Sinusitis Qualifiers: Sinusitis location: unspecified location Chronicity: acute Recurrence: non- recurrent Qualified Code(s): J01.90 - Acute sinusitis, unspecified Stand Alone Forms Stand Alone Forms: Work/School Release Instructions Patient Instructions: Sinusitis, DI for Sinusitis Print Language Print Language: Micronesian Discharge ED Provider: Endy Fernandez [facility] General Stated complaint: chills sweats headache chest congestion Mode of Arrival: Ambulatory Source of Information: Patient Limitations: No Limitations Time Seen by Provider: 01/28/24 08:22 Description of Symptoms (Recalled from Triage Doc. by RN): PATIENT C/O HEADACHE, CHEST CONGESTION, COUGH, SNEEZING, CHILLS, AND HOT FLASHES THAT STARTED YESTERDAY HEENT Symptoms (Recalled from RN notes): Yes Resp Symptoms (Recalled from RN notes): Yes Skin Symptoms (Recalled from RN notes): No MS Symptoms (Recalled from RN notes): No Functional Status (Recalled from RN notes): WNL Related Data Home Medications ?Medication ?Instructions ?Recorded ?Confirmed allopurinol 300 mg tablet 300 mg PO DAILY 01/28/24 01/28/24 dapagliflozin propanediol 10 mg 10 mg PO DAILY 01/28/24 01/28/24 tablet (Farxiga) ergocalciferol (vitamin D2) 1,250 1,250 mcg PO WEEKLY 01/28/24 01/28/24 mcg (50,000 unit) capsule ezetimibe 10 mg tablet 10 mg PO DAILY 01/28/24 01/28/24 flecainide 50 mg tablet 50 mg PO DAILY 01/28/24 01/28/24 gabapentin 300 mg capsule 300 mg PO DAILY 01/28/24 01/28/24 hydrochlorothiazide 25 mg tablet 25 mg PO DAILY 01/28/24 01/28/24 loratadine 10 mg tablet 10 mg PO DAILY 01/28/24 01/28/24 metoprolol tartrate 50 mg tablet 50 mg PO DAILY 01/28/24 01/28/24 omeprazole 20 mg capsule,delayed 20 mg PO DAILY 01/28/24 01/28/24 release oxycodone-acetaminophen 10 mg-325 1 tab PO DAILY 01/28/24 01/28/24 mg tablet trazodone 50 mg tablet 50 mg PO DAILY 01/28/24 01/28/24 Previous Rx's ?Medication ?Instructions ?Recorded amoxicillin 875 mg tablet 875 mg PO Q12H #20 tabs 01/28/24 benzonatate 100 mg capsule 100 mg PO TIDP PRN Cough #30 caps 01/28/24 methylprednisolone 4 mg tablets in 4 mg PO DIRECTED 6 days #21 tabs 01/28/24 a dose pack Allergies Allergy/AdvReac Type Severity Reaction Status Date / Time No Known Allergies Allergy Verified 09/08/23 13:14 Worker's Comp Is this a Worker's Comp case?: No [facility] Disclaimer: The information contained in this section may have been updated after the patient was seen, as this information can be updated by other users. 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) Family history of cancer Family history of diabetes mellitus type II Family history of myocardial infarction Social History Smoking Status: Never smoker second hand exposure: No alcohol intake: never substance use type: denies use current occupational status: employed Travel in the last 8 weeks: None household members: spouse housing: house current occupational exposures/hazards: No caffeine: Yes ROS Obtained: Yes All systems reviewed & no additional complaints except as documented Constitutional Constitutional: Reports poor appetite Eyes Eyes: Reports system reviewed and no additional complaints, except as documented ENT Ears, Nose, Mouth, and Throat: Reports as per HPI Cardiovascular Cardiovascular: Reports system reviewed and no additional complaints, except as documented and Denies chest pain Respiratory Respiratory: Denies shortness of breath, Reports chest congestion, Reports cough, Denies stridor and Denies wheezing Gastrointestinal Gastrointestingal: Reports system reviewed and no additional complaints, except as documented; Denies abdominal pain, diarrhea or vomiting Musculoskeletal Musculoskeletal: Reports system reviewed and no additional complaints, except as documented and Denies arthralgias Integumentary/Breasts Skin/Breast: Reports system reviewed and no additional complaints, except as documented and Denies rash Neurologic Neurologic: Denies paresthesias Allergic/Immunologic Allergic/Immunologic: Denies wheezing Physical Exam General General appearance: alert and in no apparent distress Eye Eye exam: Present normal appearance, PERRL and EOMI ENT ENT exam: Present mucous membranes moist and normal external ear exam Expanded ENT Exam External ear exam: Present normal external inspection TM/Canal exam: Bilateral TM: erythema and bulging Nose exam: Absent sinus tenderness Nasal speculum exam: Bilateral: normal Mouth exam: Present normal external inspection; Absent drooling Teeth exam: Present normal inspection Throat exam: Present tonsillar erythema and tonsillomegaly Neck Neck exam: Present normal inspection, full ROM and trachea midline; Absent tenderness, lymphadenopathy or thyromegaly Chest Chest inspection: Present normal inspection and symmetric chest wall rise; Absent tenderness or rash Respiratory Respiratory exam: Present normal lung sounds bilaterally; Absent respiratory distress, wheezes, stridor or accessory muscle use Cardiovascular Cardiovascular exam: Present regular rate, normal rhythm and normal heart sounds Abdominal Exam Abdominal exam: Present soft; Absent distention, tenderness, guarding, rebound or rigidity Extremities Exam Extremities exam: Present normal inspection, full ROM and normal capillary refill; Absent tenderness or calf tenderness Back Exam Back exam: Present normal inspection and full ROM; Absent tenderness Neurological Exam Neurological exam: Present alert and oriented X3 Psychiatric Psychiatric exam: Present normal affect and normal mood Skin Skin exam: Present warm, dry, intact and normal color Lymphatic Lymphatic Findings: no adenopathy Medical Decision Making Medical Records Medical records reviewed: No I reviewed the patient's medical records. Screening: Per USPSTF and CDC recommendations, given the prevalence of disease in our region, it is our hospital?s policy to screen for HIV and viral Hepatitis for all patients aged 18 and over and those with ongoing risk factors. Evans Inquiry Pt receiving controlled substance: No Vital Signs: 01/28/24 08:15 Temperature 99.0 F Temperature Source Oral Pulse Rate [Left Brachial] 108 H Respiratory Rate 20 Blood Pressure [Left Arm] 111/57 L Blood Pressure Mean [Left Arm] 75 Blood Pressure Source [Left Arm] Automatic Cuff Blood Pressure Position [Left Arm] Sitting 02 Sat by Pulse Oximetry 95 Oxygen Delivery Method Room Air Lab Data Lab results reviewed: Yes I reviewed the patient's lab results.
[2024-01-28 08:52] LABS: UTC Influenza A Antigen Negative (Negative)
[2024-01-28 08:53] LABS: UTC Influenza B Antigen Negative (Negative)
[2024-01-28 09:03] VITALS: BP 111/57; PULSE 108; RESP 20; TEMP 37.2; O2SAT 95
== END 2024-01-28 09:08 | disposition home or self-care (01) ==
PROVIDERS: Emergency Provider Nurse Practitioner Family; PCP Nurse Practitioner
DX: J40 Bronchitis, not specified as acute or chronic (principal); B34.9 Viral infection, unspecified; J01.90 Acute sinusitis, unspecified
CPT/HCPCS: 87635; 87804; 99213; G0381

== ENCOUNTER 2024-01-29 14:25 | Outpatient (POV) | payer OTHER, SELFPAY ==
--- NOTE | 2024-01-29 14:30 | EXP.PAIN.SOA ---
[facility] Disclaimer: The information contained in this section may have been updated after the patient was seen, as this information can be updated by other users. 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 Today she rates her pain an 8 out of 10. Patient was scheduled for appointment tomorrow however she has been under the weather and was recently tested positive for COVID. Patient states her pain is so bad because she has been having bodyaches with any little movement. Patient denies any other changes. She does also state that she has been having some headaches. Patient is currently managed with Percocet 10 mg 5 times a day and gabapentin 300 mg at bedtime. She denies any side effects from this medication. Her Evans has been reviewed and is appropriate. Review of Systems: General: No recent weight changes, no fever, no sleep disturbances Respiratory: No cough, no shortness of air, no recurring pulmonary infections Cardiovascular/peripheral vascular: No chest pain, no palpitations, no edema, no shortness of breath Gastrointestinal: No new onset incontinence, normal bowel movements reported Genitourinary: No new onset incontinence Musculoskeletal: Low back pain, generalized bodyaches Psychiatric: [Normal mood/affect] Neurological: [Denies weakness in extremities], [denies balance issues] Pain at rest (0-10 scale): 8 Objective Objective:: General: Alert and oriented x3, pleasant and cooperative Lungs: Patient is able to say complete sentences without dyspnea Neurological: Speech clear Has patient had previous pain injection?: No Conservative treatment options previously tried: Home exercise plan Length of treatment: Longer than 6 weeks Meds Home Medications and Allergies Home Medications ?Medication ?Instructions ?Recorded ?Confirmed ?Type allopurinol 300 mg tablet 300 mg PO DAILY 01/28/24 01/28/24 History amoxicillin 875 mg tablet 875 mg PO Q12H #20 tabs 01/28/24 Rx benzonatate 100 mg capsule 100 mg PO TIDP PRN Cough #30 caps 01/28/24 Rx dapagliflozin propanediol 10 mg 10 mg PO DAILY 01/28/24 01/28/24 History tablet (Farxiga) ergocalciferol (vitamin D2) 1,250 1,250 mcg PO WEEKLY 01/28/24 01/28/24 History mcg (50,000 unit) capsule ezetimibe 10 mg tablet 10 mg PO DAILY 01/28/24 01/28/24 History flecainide 50 mg tablet 50 mg PO DAILY 01/28/24 01/28/24 History gabapentin 300 mg capsule 300 mg PO DAILY 01/28/24 01/28/24 History hydrochlorothiazide 25 mg tablet 25 mg PO DAILY 01/28/24 01/28/24 History loratadine 10 mg tablet 10 mg PO DAILY 01/28/24 01/28/24 History methylprednisolone 4 mg tablets in 4 mg PO DIRECTED 6 days #21 tabs 01/28/24 Rx a dose pack metoprolol tartrate 50 mg tablet 50 mg PO DAILY 01/28/24 01/28/24 History omeprazole 20 mg capsule,delayed 20 mg PO DAILY 01/28/24 01/28/24 History release oxycodone-acetaminophen 10 mg-325 1 tab PO DAILY 01/28/24 01/28/24 History mg tablet trazodone 50 mg tablet 50 mg PO DAILY 01/28/24 01/28/24 History New Prescriptions to Start Prescriptions: Allergies Allergy/AdvReac Type Severity Reaction Status Date / Time No Known Allergies Allergy Verified 09/08/23 13:14 Assessment and Plan *Assessment and plan (1) Lumbar radiculopathy: Status: Acute Category: Medical Code(s): M54.16 - Radiculopathy, lumbar region (2) Degenerative disc disease, lumbar: Status: Acute Category: Medical Code(s): M51.36 - Other intervertebral disc degeneration, lumbar region Plan Patient did give verbal consent for this audio appointment. I will refill the patient's Percocet and gabapentin and provide a 1 month supply of this medication. Patient will return to clinic in 1 month for reevaluation of symptoms and plan of care. This visit did last from 1421 to 1425. Risks and benefits of the medication have been explained in detail to the patient. The patient does understand the risk of dependence on the medication when given over a prolonged period. Patient has been advised of risks of oversedation with the prescribed medication. Narcan has been offered to the paitent in the event of oversedation. Patient has been advised that a family member should also be educated regarding administration of Narcan. The patient has been advised to consult with his/her primary care provider and pharmacist regarding drug-drug interaction of medications currently prescribed. Patient has been prescribed a controlled substance after being counseled on the medication, medication safety, and possible side effects. Opioid contract was reviewed and signed by the patient, and that they have agreed to all of the terms set forth by our compliance program. Patient has been instructed to contact the clinic with any concerns before the next appointment. Dr. Zelaya has reviewed this note and agrees with this plan of care. This note was dictated using voice recognition software and make contain errors or omissions.
== END 2024-01-29 23:59 | disposition home or self-care (01) ==
PROVIDERS: Visit Provider Nurse Practitioner Family
DX: M51.16 Intervertebral disc disorders with radiculopathy, lumbar region (principal)
CPT/HCPCS: 99212; G0463

== ENCOUNTER 2024-02-27 13:54 | Outpatient (POV) | payer OTHER, SELFPAY ==
--- OUTSIDE RECORDS SUMMARY | 2024-02-27 14:00 | XMS_ITS | Clinical Summary ---
[facility] Address [address] [place] [address] Care Team Providers Care Fisheries Inspector Name Role Phone Klarissa Napier RETURN TO VENDOR Primary Care Provider [phone]- [phone] Social History Tobacco Use Types Packs/Day Years Used Date Smoking Tobacco: Never Assessed Abuse Screen Answer Date Recorded Unsafe at Home or Work/School Not on file Feels Threatened by Someone? Not on file 01/2023 Does Anyone Keep You from Co ntacting Others or Doint Things Outside the Home? Not on file 01/22/2023 Physical Sign of Abuse Present Not on file 1 Housing Stability Answer Date Recorded Current Living Arrangements Not on file 01/13 Potentially Unsafe Housing Conditions Not on josué e 01/22/2023 Family and Community Support Answer Ajay e Recorded Help with Day-to-Day Activities Not on file 01/22/2023 Lonely or Isolated Not on file 01/22/2023 Employment Answer Date Recorded Do you want help finding or keeping work or a alma b? Not on file 01/22/2023 Disabilities Answer Date Recorded Concentrating, Remembering, or Making Decisions Difficulty Not on file 01/22/2023 Doing Errands Independently Difficulty Not on fi le 01/22/2023 Education Answer Date Recorded Help with school or training? Not on file Preferred Language Not on file 01/22/2023 Comments Unknown Sex and Gender Information Value Date Recorded Sex Assigned at Not on file Legal Sex Female 1:54 PM EDT Gender Identity Not on file Sexual Orientation Not on file Last Filed Vital Signs Vital Sign Reading Time Taken Comments Blood Pressure 114/76 12/10/2014 11:03 AM EDT Pulse 83 12/10/2014 11:03 AM EDT Temperature - - Respiratory Rate 18 12/10/2014 11:03 AM EDT Oxygen Saturation 95% 12/10/2014 11:03 AM EDT Inhaled Oxygen Concentration - - Weight 113 kg (249 lb 0.2 oz) 12/10/2014 11:03 A M EDT Height 165.1 cm (5' 5 ) 12/10/2014 11:03 AM EDT Body Mass Index 41.44 12/10/2014 11:03 AM EDT Plan of Treatment Health Maintenance Due Date Last Done Comments Annual Gynecologic Pelvic an d Breast Exam 1968 COLOGUARD 1968 COLON CANCER SCREENING 5 YEA R SIGMOIDOSCOPY 1968 COLONOSCOPY 1968 COL[address] CANCER SCREENING 1968 CT COLONOGRAPHY 1968 FECAL OCCULT BLOOD TEST 1968 FIT Testing (1 year) 1968 MAMMOGRAM 1968 TDAP/TD VACCINES (1 - Tdap) 07/03/1987 ZOSTER VACCINE (1 of 2) 2018 ANNUAL PHYSICAL 02/13/2022 HEPATITIS C SCREENING 02/13/2022 INFLUENZA VACCINE 11/14/2023 01/15/2019 COVID-19 Vaccine (1 - 2023-2 5 season) 2023 Pneumococcal Vaccine 0-64 Aged Out No longer eligible based on patient's age to complete this topic Care Teams Fisheries Inspector Relationship Specialty Start Date End Date Klarissa Napier, ZAHRA [address] [place] [id number] PCP - General 11/25/14
--- OUTSIDE RECORDS SUMMARY | 2024-02-27 14:00 | XMS_ITS | Encounter Summary ---
Author Organization [facility] Address [address] [place] [address] Care Team Providers Care Revenue Collector Name Role Phone Klarissa Napier ZAHRA Primary Care Provider [phone]- [phone] Encounter Details Date Type Department Care Team (Late st Contact Info) Description 11/08/2014 Office Visit Converted [facility] [address] [facility] [address] [place] [address] Luh Sanderson APRN [address] [address] Social History Tobacco Use Types Packs/Day Years Used Date Smoking Tobacco: Never Assessed Comments Unknown Sex and Gender Information Value Date Recorded Sex Assigned at Not on file Legal Sex Female 1:54 PM EDT Gender Identity Not on file Sexual Orientation Not on file documented as of this encounter Last Filed Vital Signs Vital Sign Reading Time Taken Comments Blood Pressure 136/86 11/08/2014 12:02 PM EDT Pulse 88 11/08/2014 12:02 PM EDT Temperature - - Respiratory Rate 20 11/08/2014 12:02 PM EDT Oxygen Saturation 94% 11/08/2014 12:02 PM EDT Inhaled Oxygen Concentration - - Weight 130 kg (286 lb 6 oz) 11/08/2014 12:02 PM EDT Height 160 cm (5' 3 ) 11/08/2014 12:02 PM EDT Body Mass Index 50.73 11/08/2014 12:02 PM EDT documented in this encounter Progress Notes * Luh Sanderson APRN - 11/08/2014 11:30 AM EDT PCP/Referring Physician Requesting Provider: Dr. Itzel Jovel III, DMD, MD Primary Care Provider: DR. KLARISSA NAPIER Chief Complaint 1. Dizziness 2. Headache 3. Numbness (Hypesthesia) History of Present Illness HPI: This is a 44 yo female who presents for right facial pain for about 3-4 years on and off. She reports having some dental teeth extractions by a Dentist in [place] and after this dental work she started having the pain. She gets pain at the right jaw line and will radiate to her chin which is sharp and then sometimes it will radiate to her ear and around her ear and it feels like someone has set her face on fire when it does this. She was referred to us by Dr. Jovel with [facility] surgery for atypical facial pain. He did order an MRI Brain and she had this done recently at [facility] and she was told it looked ok. She has been treated with Gabapentin up to 1000mg TID in the past but this has not helped the pain at all. She is also taking Tramadol now by her PCP which does not help the pain. Sometimes she goes up to 3-6 months without any pain and then it flares up and it has been excruciating 10/10 pain since May of this year. It occurs every 2-3 minutes. She went tot ER last Saturday due to her severe pain and they gave her IM injections and Tylenol #3 for the pain. Oral Maxillofacial Surgeon feels that this pain was not typical of the Trigeminal Neuralgia. Theonly time she has ever felt any relief is when she had surgery on her knees and was given Oxycodone. She did have CT brain without contrast and CT bones 10/01/13 which was normal with no abnormal findings. She did have a headache last week dull, aching, 10/10 pain that she feels like was a migraine with nausea, no vomiting, photophobia and phonophobia and it occurred bilateral frontal area. This lasted 3 days and she finally went to ER and they gave her a shot and it went away. She has a historyof occasional migraine headaches in the past. Review of Systems [facility] Complete ROS: Constitutional: feeling tired, feeling poorly, fever and chills. Eyes: red eyes. ENT: nasal discharge and earache. Cardiovascular: negative. Respiratory: wheezing and shortness of breath. Gastrointestinal: nausea, but negative. Genitourinary (Female): negative. Musculoskeletal: joint stiffness, joint swelling, limb pain and limb swelling. Integumentary: dry skin. Neurological: headache, numbness, dizziness, tingling, limb weakness and difficulty walking. Psychiatric: sleep disturbances and personality change. Endocrine: feelings of weakness, muscle weakness and hot flashes. Hematologic/Lymphatic: a tendency for easy bleeding. Other Symptoms: DRY MOUTH. Past 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 1. History of arthritis (V13.4) 2. History of cardiac disorder (V12.50) 3. History of hypertension (V12.59) 4. History of migraine (V12.49) 5. History of Parkinson's disease (V12.49) Family History 1. Family history of Alzheimer's disease (V17.2) 2. Family history of cardiac disorder (V17.49) 3. Family history of cerebrovascular accident (V17.1) 4. Family history of dementia (V17.2) 5. Family history of diabetes mellitus (V18.0) 6. Family history of epilepsy (V17.2) 7. Family history of hypertension (V17.49) 8. Family history of malignant neoplasm (V16.9) 9. Family history of Neurological disorder 10. Family history of Alzheimer's disease (V17.2) 11. Family history of cardiac disorder (V17.49) 12. Family history of cerebrovascular accident (V17.1) 13. Family history of dementia (V17.2) 14. Family history of diabetes mellitus (V18.0) 15. Family history of epilepsy (V17.2) 16. Family history of hypertension (V17.49) 17. Family history of malignant neoplasm (V16.9) 18. Family history of Neurological disorder Social History 1. 2. Never a smoker 3. Never smoked tobacco (V49.89) ?? Assessed By: Luh Sanderson (Neurology); Last Assessed: 08 Nov 2014 4. No alcohol use Current Meds Medication Name Instruction Amitriptyline HCl - 50 MG Oral Tablet Aspirin 81 MG Oral Tablet Fish Oil 1000 MG Oral Capsule Flax OIL Flecainide Acetate 50 MG Oral Tablet Loratadine 10 MG Oral Tablet Metoprolol Tartrate 50 MG Oral Tablet Multivitamin Gummies Adult Oral Tablet Chewable TraMADol HCl - 50 MG Oral Tablet Allergies 1. No Known Drug Allergies Vitals Signs [Data Includes: Current Encounter] Recorded: [id number] 12:02PM Heart Rate: 88 Respiration: 20 Systolic: 136 Diastolic: 86 Height: 5 ft 3 in Weight: 286 lb 6 oz BMI Calculated: 50.73 BSA Calculated: 2.25 O2 Saturation: 94 Physical Exam Constitutional General appearance: No acute distress, well appearing and well nourished. Head and Face Head and face: Abnormal. (very tender to palpation over right lower mandible area. no erythema, no lesions, no ecchymosis. also tender over right ear) Examination of the head and face revealed no abnormalities. Periorbital Rim Findings: diffuse tenderness on the right, but no swelling on the right,no ecchymosis on the right, no increased warmth on the right, no induration on the right, no swelling on the left, no tenderness on the left, no ecchymosis on the left, no increased warmth on the left and no induration on the left. Maxillary Findings: no swelling on the right, no tenderness on the right, no swelling on the left and no tenderness on the left. Mandible Findings: tenderness on the ri ght, but no swelling on the right, no swelling on the left and no tenderness on the left. TMJ Findings: no swelling on the right, no tenderness on the right, no pain with motion on the right, no popping with motion on the right, no swelling on the left, no tenderness on the left, no pain with motion on the left and no popping with motion on the left. Eyes Ophthalmoscopic examination: Normal appearing optic disc and posterior segments. Neck Neck and thyroid: Normal, supple, trachea midline, no masses or thyromegaly. Pulmonary Respiratory effort: No increased work of breathing or signs of respiratory distress. Auscultation of lungs: Clear to auscultation. Cardiovascular Auscultation of heart: Normal rate and rhythm, normal S1 and S2, no murmurs. Carotid pulses: Normal, 2+ bilaterally. Peripheral vascular exam: Normal pulses throughout, no tenderness, erythema or swelling. Musculoskeletal Gait and station: Normal gait, stance and balance. Digits and nails: Normal, no clubbing or cyanosis. Muscle strength: Normal strength throughout arms and legs. Muscle tone: No atrophy, abnormal movements, flaccidity, cogwheeling or spasticity. Neurologic Orientation to person, place, and time: Normal. Recent and remote memory: Demonstrates normal memory. Attention span and concentration: Normal thought process and attention span. Language: Names objects, able to repeat phrases and speaks spontaneously. Fund of knowledge: Normal vocabulary with appropriate knowledge of current events and past history. 1st cranial nerve: Normal. Optic nerve: Normal. 3rd, 4th, and 6th cranial nerves: Normal. 5th cranial nerve: Normal. 7th cranial nerve: Abnormal. Normal facial muscle strength. 8th cranial nerve: Normal. 9th cranial nerve: Normal. 10th cranial nerve: Normal. 11th cranial nerve: Normal. 12th cranial nerve: Normal. Sensation: Normal. Completely intact over face today. Reflexes: Normal in arms and legs. BLE diminished chronic per patient s/p Bilateral TKR. Coordination: Normal. Cortical function: Normal. Judgment and insight: Normal. Mood and affect: Normal. Radicular Testing: Normal. Assessment 1. 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 Assessed By: Luh Sanderson (Neurology); Last Assessed: 08 Nov 2014 2. 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 Assessed By: Luh Sanderson (Neurology); Last Assessed: 08 Nov 2014 3. Chronic migraine without aura without status migrainosus, not intractable (346.70) ?? Assessed By: Luh Sanderson (Neurology); Last Assessed: 08 Nov 2014 4. Paresthesias (782.0) ?? Assessed By: Luh Sanderson (Neurology); Last Assessed: 08 Nov 2014 5. Never smoked tobacco (V49.89) ?? Assessed By: Luh Sanderson (Neurology); Last Assessed: 08 Nov 2014 Plan 1. Start: OXcarbazepine 300 MG Oral Tablet (Trileptal); TAKE 1 TABLET TWICE DAILY 2. SVETLANA w Reflex; Status:Active; Requested for:[id number]; 3. CBC With Auto Diff; Status:Active; Requested for:[id number]; 4. CMP; Status:Active; Requested for:[id number]; 5. CRP; Status:Active; Requested for:[id number]; 6. Folate; Status:Active; Requested for:[id number]; 7. Sed Rate ( ESR ); Status:Active; Requested for:[id number]; 8. T4 ( Thyroxine ) Free; Status:Active; Requested for:[id number]; 9. TSH; Status:Active; Requested for:[id number]; 10. Vitamin B12; Status:Active; Requested for:07Gcu7059; 11. Vitamin D 25 OH ( Hydroxy ); Status:Active; Requested for:83Soi3739; 12. Hemoglobin A1C; Status:Active; Requested for:73Mdd4770; 13. Iron , Serum; Status:Active; Requested for:[id number]; 14. Methylmalonic Acid , Blood ( MMA ); Status:Active; Requested for:[id number]; 15. Follow-up visit in 1 month Evaluation and Treatment Follow-up Status: Complete Done: 08Nov2014 End of Encounter Meds Medication Name Instruction Amitriptyline HCl - 50 MG Oral Tablet Aspirin 81 MG Oral Tablet Fish Oil 1000 MG Oral Capsule Flax OIL Flecainide Acetate 50 MG Oral Tablet Loratadine 10 MG Oral Tablet Metoprolol Tartrate 50 MG Oral Tablet Multivitamin Gummies Adult Oral Tablet Chewable OXcarbazepine 300 MG Oral Tablet (Trileptal) TAKE 1 TABLET TWICE DAILY. TraMADol HCl - 50 MG Oral Tablet Discussion/Summary Discussion Summary: Will request records of MRI brain from [facility] for review. Her symptoms are consistent with Trigeminal Neuralgia but not where her pain occurs so we do consider this atypical facial pain and neuralgias for now. We will start Trileptal 300mg 1/2 tab PO BID x 2 weeks then increase to 1 whole tab BID for her facial pain. Educated on medication SE and s&s to report. We will obtain complete lab panel to r/o other etiology for her symptoms with more acute migraine headache complaints as well. We will follow up with her in 1 month. Reviewed [facility] Surgeons detailed visit notes as well. Will discuss case further with MD for additional plan and will discuss with patient next visit. Review of Data: Reviewed radiology tests ct brain. Referring MD records reviewed . Patient Care Team Care Revenue Collector Role Specialty Office Number LUH SANDERSON ZAHRA Future Appointments Date/Time Provider Specialty Site 12/24/2014 09:15 AM Carson Mcleod M.D. Neurology [facility] Neurology [facility] The patient was counseled regarding diagnostic results, instructions for management, risk factor reductions, prognosis, patient and family education, impressions, risks and benefits of treatment options and importance of compliance with treatment. Signatures Electronically signed by : Luh Sanderson APRN; Nov 08 2014 12:38PM EST (Author) documented in this encounter Miscellaneous Notes * Letter - Luh Sanderson APRN - 11/08/2014 11:[address] Jovel, Thank you for your referral of Mrs. Madden. Please see below for my evaluation and treatment plan. Thank You, Luh Sanderson APRN, Chief Complaint 1. Dizziness 2. Headache 3. Numbness (Hypesthesia) History of Present Illness HPI: This is a 44 yo female who presents for right facial pain for about 3-4 years on and off. She reports having some dental teeth extractions by a Dentist in [place] and after this dental work she started having the pain. She gets pain at the right jaw line and will radiate to her chin which is sharp and then sometimes it will radiate to her ear and around her ear and it feels like someone has set her face on fire when it does this. She was referred to us by Dr. Jovel with [facility] surgery for atypical facial pain. He did order an MRI Brain and she had this done recently at [facility] and she was told it looked ok. She has been treated with Gabapentin up to 1000mg TID in the past but this has not helped the pain at all. She is also taking Tramadol now by her PCP which does not help the pain. Sometimes she goes up to 3-6 months without any pain and then it flares up and it has been excruciating 10/10 pain since May of this year. It occurs every 2-3 minutes. She went tot ER last Saturday due to her severe pain and they gave her IM injections and Tylenol #3 for the pain. Oral Maxillofacial Surgeon feels that this pain was not typical of the Trigeminal Neuralgia. Theonly time she has ever felt any relief is when she had surgery on her knees and was given Oxycodone. She did have CT brain without contrast and CT bones 10/01/13 which was normal with no abnormal findings. She did have a headache last week dull, aching, 10/10 pain that she feels like was a migraine with nausea, no vomiting, photophobia and phonophobia and it occurred bilateral frontal area. This lasted 3 days and she finally went to ER and they gave her a shot and it went away. She has a historyof occasional migraine headaches in the past. Review of Systems Constitutional: feeling tired, feeling poorly, fever and chills. Eyes: red eyes. ENT: nasal discharge and earache. Cardiovascular: negative. Respiratory: wheezing and shortness of breath. Gastrointestinal: nausea, but negative. Genitourinary (Female): negative. Musculoskeletal: joint stiffness, joint swelling, limb pain and limb swelling. Integumentary: dry skin. Neurological: headache, numbness, dizziness, tingling, limb weakness and difficulty walking. Psychiatric: sleep disturbances and personality change. Endocrine: feelings of weakness, muscle weakness and hot flashes. Hematologic/Lymphatic: a tendency for easy bleeding. Other Symptoms: DRY MOUTH. Past 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 ?? History of arthritis (V13.4) ?? History of cardiac disorder (V12.50) ?? History of hypertension (V12.59) ?? History of migraine (V12.49) ?? History of Parkinson's disease (V12.49) Family History ?? Family history of Alzheimer's disease (V17.2) ?? Family history of cardiac disorder (V17.49) ?? Family history of cerebrovascular accident (V17.1) ?? Family history of dementia (V17.2) ?? Family history of diabetes mellitus (V18.0) ?? Family history of epilepsy (V17.2) ?? Family history of hypertension (V17.49) ?? Family history of malignant neoplasm (V16.9) ?? Family history of Neurological disorder ?? Family history of Alzheimer's disease (V17.2) ?? Family history of cardiac disorder (V17.49) ?? Family history of cerebrovascular accident (V17.1) ?? Family history of dementia (V17.2) ?? Family history of diabetes mellitus (V18.0) ?? Family history of epilepsy (V17.2) ?? Family history of hypertension (V17.49) ?? Family history of malignant neoplasm (V16.9) ?? Family history of Neurological disorder Social History ? Never a smoker ?? Never smoked tobacco (V49.89) ?? Assessed By: Lhu Sanderson (Neurology); Last Assessed: 08 Nov 2014 ?? No alcohol use Current Meds Medication Name Instruction Amitriptyline HCl - 50 MG Oral Tablet Aspirin 81 MG Oral Tablet Fish Oil 1000 MG Oral Capsule Flax OIL Flecainide Acetate 50 MG Oral Tablet Loratadine 10 MG Oral Tablet Metoprolol Tartrate 50 MG Oral Tablet Multivitamin Gummies Adult Oral Tablet Chewable TraMADol HCl - 50 MG Oral Tablet Allergies 1. No Known Drug Allergies Vitals Signs [Data Includes: Current Encounter] Heart Rate: 88 Respiration: 20 Systolic: 136 Diastolic: 86 Height: 5 ft 3 in Weight: 286 lb 6 oz BMI Calculated: 50.73 BSA Calculated: 2.25 O2 Saturation: 94 Physical Exam Constitutional General appearance: No acute distress, well appearing and well nourished. Head and Face Head and face: Abnormal. (very tender to palpation over right lower mandible area. no erythema, no lesions, no ecchymosis. also tender over right ear) Examination of the head and face revealed no abnormalities. Periorbital Rim Findings: diffuse tenderness on the right, but no swelling on the right,no ecchymosis on the right, no increased warmth on the right, no induration on the right, no swelling on the left, no tenderness on the left, no ecchymosis on the left, no increased warmth on the left and no induration on the left. Maxillary Findings: no swelling on the right, no tenderness on the right, no swelling on the left and no tenderness on the left. Mandible Findings: tenderness on the ri ght, but no swelling on the right, no swelling on the left and no tenderness on the left. TMJ Findings: no swelling on the right, no tenderness on the right, no pain with motion on the right, no popping with motion on the right, no swelling on the left, no tenderness on the left, no pain with motion on the left and no popping with motion on the left. Eyes Ophthalmoscopic examination: Normal appearing optic disc and posterior segments. Neck Neck and thyroid: Normal, supple, trachea midline, no masses or thyromegaly. Pulmonary Respiratory effort: No increased work of breathing or signs of respiratory distress. Auscultation of lungs: Clear to auscultation. Cardiovascular Auscultation of heart: Normal rate and rhythm, normal S1 and S2, no murmurs. Carotid pulses: Normal, 2+ bilaterally. Peripheral vascular exam: Normal pulses throughout, no tenderness, erythema or swelling. Musculoskeletal Gait and station: Normal gait, stance and balance. Digits and nails: Normal, no clubbing or cyanosis. Muscle strength: Normal strength throughout arms and legs. Muscle tone: No atrophy, abnormal movements, flaccidity, cogwheeling or spasticity. Neurologic Orientation to person, place, and time: Normal. Recent and remote memory: Demonstrates normal memory. Attention span and concentration: Normal thought process and attention span. Language: Names objects, able to repeat phrases and speaks spontaneously. Fund of knowledge: Normal vocabulary with appropriate knowledge of current events and past history. 1st cranial nerve: Normal. Optic nerve: Normal. 3rd, 4th, and 6th cranial nerves: Normal. 5th cranial nerve: Normal. 7th cranial nerve: Abnormal. Normal facial muscle strength. 8th cranial nerve: Normal. 9th cranial nerve: Normal. 10th cranial nerve: Normal. 11th cranial nerve: Normal. 12th cranial nerve: Normal. Sensation: Normal. Completely intact over face today. Reflexes: Normal in arms and legs. BLE diminished chronic per patient s/p Bilateral TKR. Coordination: Normal. Cortical function: Normal. Judgment and insight: Normal. Mood and affect: Normal. Radicular Testing: Normal. Assessment 1. 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 Assessed By: Luh Sanderson (Neurology); Last Assessed: 08 Nov 2014 2. 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 Assessed By: Luh Sanderson (Neurology); Last Assessed: 08 Nov 2014 3. Chronic migraine without aura without status migrainosus, not intractable (346.70) ?? Assessed By: Luh Sanderson (Neurology); Last Assessed: 08 Nov 2014 4. Paresthesias (782.0) ?? Assessed By: Luh Sanderson (Neurology); Last Assessed: 08 Nov 2014 5. Never smoked tobacco (V49.89) ?? Assessed By: Luh Sanderson (Neurology); Last Assessed: 08 Nov 2014 Plan Atypical face pain, Atypical neuralgia ?? Start: 300 MG Oral Tablet (Trileptal); TAKE 1 TABLET TWICE DAILY Atypical face pain, Atypical neuralgia, Chronic migraine without aura without status migrainosus, not intractable ?? SVETLANA w Reflex; Status:Active; Requested for:[id number]; ?? CBC With Auto Diff; Status:Active; Requested for:[id number]; ?? CMP; Status:Active; Requested for:[id number]; ?? CRP; Status:Active; Requested for:[id number]; ?? Folate; Status:Active; Requested for:[id number]; ?? Sed Rate ( ESR ); Status:Active; Requested for:[id number]; ?? T4 ( Thyroxine ) Free; Status:Active; Requested for:[id number]; ?? TSH; Status:Active; Requested for:[id number]; ?? Vitamin B12; Status:Active; Requested for:08Nov2014; ?? Vitamin D 25 OH ( Hydroxy ); Status:Active; Requested for:08Nov2014; Atypical face pain, Atypical neuralgia, Chronic migraine without aura without status migrainosus, not intractable, Paresthesias ?? Hemoglobin A1C; Status:Active; Requested for:08Nov2014; ?? Iron , Serum; Status:Active; Requested for:08Nov2014; ?? Methylmalonic Acid , Blood ( MMA ); Status:Active; Requested for:08Nov2014; ?? Follow-up visit in 1 month Evaluation and Treatment Follow-up Status: Complete Done: 08Nov2014 End of Encounter Meds Medication Name Instruction Amitriptyline HCl - 50 MG Oral Tablet Aspirin 81 MG Oral Tablet Fish Oil 1000 MG Oral Capsule Flax OIL Flecainide Acetate 50 MG Oral Tablet Loratadine 10 MG Oral Tablet Metoprolol Tartrate 50 MG Oral Tablet Multivitamin Gummies Adult Oral Tablet Chewable OXcarbazepine 300 MG Oral Tablet (Trileptal) TAKE 1 TABLET TWICE DAILY. TraMADol HCl - 50 MG Oral Tablet Discussion/Summary Will request records of MRI brain from [facility] for review. Her symptoms are consistent with Trigeminal Neuralgia but not where her pain occurs so we do consider this atypical facial pain and neuralgias for now. We will start Trileptal 300mg 1/2 tab PO BID x 2 weeks then increase to 1 whole tab BID for her facial pain. Educated on medication SE and s&s to report. We will obtain complete lab panel to r/o other etiology for her symptoms with more acute migraine headache complaints as well. We will follow up with her in 1 month. Reviewed [facility] detailed visit notes as well. Will discuss case further with MD for additional plan and will discuss with patient next visit. Reviewed radiology tests ct brain. Referring MD records reviewed . Patient Care Team Care Revenue Collector Role Specialty Office Number LUH SANDERSON APRN Future Appointments Date/Time Provider Specialty Site 12/24/2014 09:15 AM Carson Mcleod M.D. Neurology [facility] Neurology [facility] The patient was counseled regarding diagnostic results, instructions for management, risk factor reductions, prognosis, patient and family education, impressions, risks and benefits of treatment options and importance of compliance with treatment. PCP/Referring Physician _PCP Requesting Physician: Requesting Provider: Dr. Itzel Jovel III, DMD, MD Primary Care Provider: DR. KLARISSA NAPIER Signatures Electronically signed by : Luh Sanderson APRN; Nov 08 2014 12:38PM EST (Author) documented in this encounter Plan of Treatment Not on file documented as of this encounter Visit Diagnoses Not on filedocumented in this encounter Care Teams Revenue Collector Relationship Specialty Start Date End Date Klarissa Napier APRN [address] [place] [id number] PCP - General 11/25/14 documented as of this encounter
--- OUTSIDE RECORDS SUMMARY | 2024-02-27 14:00 | XMS_ITS | Encounter Summary ---
Author Organization [facility] Address [address] [place] [address] Care Team Providers Care Director Of Counseling Name Role Phone Klarissa Napier APRN Primary Care Provider [phone]- [phone] Encounter Details Date Type Department Care Team (Late st Contact Info) Description 12/14/2014 Telephone Converted [facility] [address] [place] [address] ProviderAnne-Marie MD [address] [place] [id number] Social History Tobacco Use Types Packs/Day Years Used Date Smoking Tobacco: Never Assessed Comments Unknown Sex and Gender Information Value Date Recorded Sex Assigned at Not on file Legal Sex Female 1:54 PM EDT Gender Identity Not on file Sexual Orientation Not on file documented as of this encounter Miscellaneous Notes * Telephone Encounter - Carson Mcleod MD - 12/14/2014 1:50 PM EDT Message Recorded as Task Date: 12/01/2014 03:49 PM, Created By: Carmen Lechuga Task Name: Referral Order Assigned To: Carmen Lechuga Regarding Patient: JANE FARIAS, Status: In Progress Comment: Carmen Lechuga - 01 Dec 2014 3:49 PM TASK CREATED Please schedule pt for first available appt. Thanks. Hi Hopper - 02 Dec 2014 1:26 PM TASK IN PROGRESS Gladys Carreno - 14 Dec 2014 12:42 PM TASK REPLIED TO: Previously Assigned To BPML Referral Team Patient has declined a pain management evaluation. Patient is looking for medication management. Signatures Electronically signed by : Carmen Lechuga MA; Dec 14 2014 1:50PM EST (Author) documented in this encounter Plan of Treatment Not on file documented as of this encounter Visit Diagnoses Not on filedocumented in this encounter Care Teams Director Of Counseling Relationship Specialty Start Date End Date Klarissa Napier, ZAHRA [address] [place] [address] PCP - General 11/25/14 documented as of this encounter
--- OUTSIDE RECORDS SUMMARY | 2024-02-27 14:00 | XMS_ITS | Encounter Summary ---
Author Organization [facility] Address [address] [place] [address] Care Team Providers Care Accident Examiner Name Role Phone Klarissa Napier APRN Primary Care Provider [phone]- [phone] Encounter Details Date Type Department Care Team (Late st Contact Info) Description 11/17/2014 Office Visit Converted [facility] [address] [place] [address] Carson Mcleod MD Social History Tobacco Use Types Packs/Day Years Used Date Smoking Tobacco: Never Assessed Comments Unknown Sex and Gender Information Value Date Recorded Sex Assigned at Not on file Legal Sex Female 1:54 PM EDT Gender Identity Not on file Sexual Orientation Not on file documented as of this encounter Last Filed Vital Signs Vital Sign Reading Time Taken Comments Blood Pressure 104/70 11/17/2014 10:51 AM EDT Pulse - - Temperature - - Respiratory Rate - - Oxygen Saturation - - Inhaled Oxygen Concentration - - Weight 132 kg (289 lb 15.9 oz) 11/17/2014 10:51 AM EDT Height 162.6 cm (5' 4 ) 11/17/2014 10:51 AM EDT Body Mass Index 49.78 11/17/2014 10:51 AM EDT documented in this encounter Progress Notes * Carson Mcleod MD - 11/17/2014 10:00 AM EDT PCP/Referring Physician Requesting Provider: Dr. Itzel Jovel Primary Care Provider: Dr. Itzel Jovel Chief Complaint 1. Dizziness 2. Facial Pain 3. Headache 4. Numbness (Hypesthesia) 5. Pain 6. Sleep Disturbances History of Present Illness HPI: she follows up after she saw Luh Sanderson a week ago for atypical facial pain. Started Trileptal grams by mouth twice a day had no side effects on it but also not improve improvement of her pain. Pain is in the lower jaw on the right side increasing with chewing and started after surgery on the gums where she was cut. Lasts seconds are comes in jolts is very sharp and lancinating. Not responded to gabapentin up to doses of about 3600 mg. She can go about 4 months without pain. There is no numbness over the cheek. Review of Systems Complete-Female: Constitutional: negative. Head and Face: negative. Eyes: negative. ENT: negative. Cardiovascular: negative. Respiratory: negative. Gastrointestinal: negative. Genitourinary: negative. Musculoskeletal: negative. Integumentary and Breasts: negative. Neurological: as noted in HPI. Psychiatric: negative. Endocrine: negative. Hematologic and Lymphatic: negative. Active Problems 1. 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 Assessed By: Carson Mcleod (Neurology); Last Assessed: 17 Nov 2014 2. 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 Assessed By: Luh Sanderson (Neurology); Last Assessed: 08 Nov 2014 3. Chronic migraine without aura without status migrainosus, not intractable (346.70) ?? Assessed By: Luh Sanderson (Neurology); Last Assessed: 08 Nov 2014 4. Paresthesias (782.0) ?? Assessed By: Luh Sanderson (Neurology); Last Assessed: 08 Nov 2014 Past 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 1. History of arthritis [...] Tablet Chewable OXcarbazepine 300 MG Oral Tablet TAKE 1 TABLET TWICE DAILY. TraMADol HCl - 50 MG Oral Tablet Allergies 1. No Known Drug Allergies Vitals Signs [Data Includes: Current Encounter] Recorded: [id number] 10:51AM Systolic: 104 Diastolic: 70 Height: 5 ft 4 in Weight: 290 lb BMI Calculated: 49.78 BSA Calculated: 2.29 Physical Exam Constitutional General appearance: Normal. Cardiovascular Carotid pulses: Normal. Eyes Ophthalmoscopic examination: Normal. Mental status:. The patient's orientation, memory, attention, language and furnd of knowledge were normal. Cranial Nerves: visual acuity and visual singleton were intact, the oculomotor, trochlear and abducensnervea were intact, no trigeminal neuropathy was noted, no facial nerve palsy was noted, hearing was intact, there was normal movement of the soft palate and normal gag, shoulder shrug was intact bilaterally and there was no tongue deviation with protrusion. Sensory exam:. Light touch was intact. Pain and temperature sensation was intact. Vibration sense was intact. Proprioception was normal. Coordination: Coordination was normal, including finger to nose, heal to santos, and rapid alternating movements. Deep tendon reflexes: Biceps: right 2+, left 2+. Triceps: right 2+, left 2+. Brachioradialis: right 2+, left 2+. Patella: right 2+, left 2+. Ankle Jerk: right 2+, left 2+. Babinski reflex absent on the right, absent on the left. Musculoskeletal The gait and station were normal. Motor Strength: motor strength was normal in all muscle groups. Motor tone:. The muscle tone was normal. no involuntary movements were seen Assessment 1. 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 Assessed By: Carson Mcleod (Neurology); Last Assessed: 17 Nov 2014 Plan 1. Pain Management Referral Physician Referral Consult radiofrequency tx for infraalveolar neuralgia evaluation. 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 Unfortunately this is probably not a fixable issue but we will refer to Dr. Gomez to see if radiofrequency therapy would be more effective for her Otilio medication since she already failed gabapentin. In the meantime I provided her with samples for extended-release Trileptal. She is to take 900 mg daily at dinner time with food for the first week if no improvement of her pain to increase to 1200 mg after that and the week after that to 1800 mg as tolerated and needed. She can then request a prescription for the equivalent dose of generic oxcarbazepine from [facility] Sanderson, and she can follow-up with her as needed. Minimize her side effects and get her up to a reasonable level more quickly. In the meantime she is to try samples of chloride send 600-1800 mg twice a day with or without food as tolerated and needed. Review of Data: Reviewed lab tests . PCP records reviewed. Referring MD records reviewed . Patient Care Team Care Accident Examiner Role Specialty Office Number [facility] APRN Future Appointments Date/Time Provider Specialty Site 12/10/2014 11:30 AM Luh Sanderson APRN Neurology [facility] [place] The patient was counseled regarding instructions for management, patient and family education, impressions, risks and benefits of treatment options and importance of compliance with treatment. Total time of encounter was 55 minutes. Total time spent counseling patient: 40 minutes. Signatures Electronically signed by : Carson Mcleod M.D.; Nov 17 2014 11:28AM EST (Author) documented in this encounter Miscellaneous Notes * Letter - Carson Mcleod MD - 11/17/2014 10:00 AM EDT Chief Complaint 1. Dizziness 2. Facial Pain 3. Headache 4. Numbness (Hypesthesia) 5. Pain 6. Sleep Disturbances History of Present Illness HPI: she follows up after she saw Lhu Sanderson a week ago for atypical facial pain. Started Trileptal grams by mouth twice a day had no side effects on it but also not improve improvement of her pain. Pain is in the lower jaw on the right side increasing with chewing and started after surgery on the gums where she was cut. Lasts seconds are comes in jolts is very sharp and lancinating. Not responded to gabapentin up to doses of about 3600 mg. She can go about 4 months without pain. There is no numbness over the cheek. Review of Systems Constitutional: negative. Head and Face: negative. Eyes: negative. ENT: negative. Cardiovascular: negative. Respiratory: negative. Gastrointestinal: negative. Genitourinary: negative. Musculoskeletal: negative. Integumentary and Breasts: negative. Neurological: as noted in HPI. Psychiatric: negative. Endocrine: negative. Hematologic and Lymphatic: negative. Active Problems 1. 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 Assessed By: Carson Mcleod (Neurology); Last Assessed: 17 Nov 2014 2. 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 Assessed By: Luh Sanderson (Neurology); Last Assessed: 08 Nov 2014 3. Chronic migraine without aura without status migrainosus, not intractable (346.70) ?? Assessed By: Luh Sanderson (Neurology); Last Assessed: 08 Nov 2014 4. Paresthesias (782.0) ?? Assessed By: Luh Sanderson (Neurology); Last Assessed: 08 Nov 2014 Past 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 ?? History of arthritis [...] Tablet Chewable OXcarbazepine 300 MG Oral Tablet TAKE 1 TABLET TWICE DAILY. TraMADol HCl - 50 MG Oral Tablet Allergies 1. No Known Drug Allergies Vitals Signs [Data Includes: Current Encounter] Systolic: 104 Diastolic: 70 Height: 5 ft 4 in Weight: 290 lb BMI Calculated: 49.78 BSA Calculated: 2.29 Physical Exam Constitutional General appearance: Normal. Cardiovascular Carotid pulses: Normal. Eyes Ophthalmoscopic examination: Normal. Mental status:. The patient's orientation, memory, attention, language and furnd of knowledge were normal. Cranial Nerves: visual acuity and visual singleton were intact, the oculomotor, trochlear and abducensnervea were intact, no trigeminal neuropathy was noted, no facial nerve palsy was noted, hearing was intact, there was normal movement of the soft palate and normal gag, shoulder shrug was intact bilaterally and there was no tongue deviation with protrusion. Sensory exam:. Light touch was intact. Pain and temperature sensation was intact. Vibration sense was intact. Proprioception was normal. Coordination: Coordination was normal, including finger to nose, heal to santos, and rapid alternating movements. Deep tendon reflexes: Biceps: right 2+, left 2+. Triceps: right 2+, left 2+. Brachioradialis: right 2+, left 2+. Patella: right 2+, left 2+. Ankle Jerk: right 2+, left 2+. Babinski reflex absent on the right, absent on the left. Musculoskeletal The gait and station were normal. Motor Strength: motor strength was normal in all muscle groups. Motor tone:. The muscle tone was normal. no involuntary movements were seen Assessment 1. 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 Assessed By: Carson Mcleod (Neurology); Last Assessed: 17 Nov 2014 Plan Atypical face pain ?? Pain Management Referral Physician Referral Consult Dr.Vascello orourke tx for infraalveolar neuralgia evaluation. 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 Unfortunately this is probably not a fixable issue but we will refer to Dr. Gomez to see if radiofrequency therapy would be more effective for her Otilio medication since she already failed gabapentin. In the meantime I provided her with samples for extended-release Trileptal. She is to take 900 mg daily at dinner time with food for the first week if no improvement of her pain to increase to 1200 mg after that and the week after that to 1800 mg as tolerated and needed. She can then request a prescription for the equivalent dose of generic oxcarbazepine from [facility] Sanderson, and she can follow-up with her as needed. Minimize her side effects and get her up to a reasonable level more quickly. In the meantime she is to try samples of chloride send 600-1800 mg twice a day with or without food as tolerated and needed. Reviewed lab tests . PCP records reviewed. Referring MD records reviewed . Patient Care Team Care Accident Examiner Role Specialty Office Number [facility] S[facility]ERSON APRN Future Appointments Date/Time Provider Specialty Site 12/10/2014 11:30 AM Luh Sanderson APRN Neurology [facility] [place] The patient was counseled regarding instructions for management, patient and family education, impressions, risks and benefits of treatment options and importance of compliance with treatment. Total time of encounter was 55 minutes. Total time spent counseling patient: 40 minutes. PCP/Referring Physician _PCP Requesting Physician: Requesting Provider: Dr. Itzel Jovel Primary Care Provider: Dr. Itzel Jovel Signatures Electronically signed by : Carson Mcleod M.D.; Nov 17 2014 11:27AM EST (Author) documented in this encounter Plan of Treatment Not on file documented as of this encounter Visit Diagnoses Not on filedocumented in this encounter Care Teams Accident Examiner Relationship Specialty Start Date End Date Karthikeyan Klarissaverito Kessler APRN [address] [place] [address] PCP - General 11/25/14 documented as of this encounter
--- OUTSIDE RECORDS SUMMARY | 2024-02-27 14:00 | XMS_ITS | Encounter Summary ---
Author Organization [facility] Address [address] [place] [address] Care Team Providers Care Penciller Name Role Phone Unavailable Primary Care Provider Unavailabl e Encounter Details Date Type Department Care Team (Late st Contact Info) Description 11/08/2014 8:43 AM EDT - 11/08/2014 11:59 PM EDT Hospital Encounter [facility] [address] [place] [id number] Luh Sanderson, WARP CHANGER [facility] [facility] [address] [place] [address] Social History Tobacco Use Types Packs/Day Years Used Date Smoking Tobacco: Never Assessed Comments Unknown Sex and Gender Information Value Date Recorded Sex Assigned at Not on file Legal Sex Female 1:54 PM EDT Gender Identity Not on file Sexual Orientation Not on file documented as of this encounter Plan of Treatment Not on file documented as of this encounter Procedures Procedure Name Priority Date/Time Associated Diagnosis Comments CONV SVETLANA W/REFLEX Routine 11/08/2014 1:1 5 PM EDT METHYLMALONIC ACID, SERUM Routine 11/08/2014 1:15 PM EDT VITAMIN D,25-HYDROXY Routine 11/08/2014 1:15 PM EDT SEDIMENTATION RATE Routine 11/08/2014 1: 15 PM EDT CBC AND DIFFERENTIAL Routine 11/08/2014 1:15 PM EDT C-REACTIVE PROTEIN Routine 11/08/2014 1: 15 PM EDT TSH Routine 11/08/2014 1:15 PM EDT T4, FREE Routine 11/08/2014 1:15 PM EDT IRON Routine 11/08/2014 1:15 PM EDT HEMOGLOBIN A1C Routine 11/08/2014 1:15 PM EDT FOLATE Routine 11/08/2014 1:15 PM EDT VITAMIN B12 Routine 11/08/2014 1:15 PM EDT COMPREHENSIVE METABOLIC PANEL Routine 11/08/2014 1:15 PM EDT documented in this encounter Results * T4, free (11/08/2014 1:15 PM EDT) Free T4 1.25 0.89 - 1.76 ng/dL [facility] Blood specimen (specimen) 11/08/2014 1:15 PM EDT [facility] - 11/08/2014 4:35 PM EDT Specimen Type: Blood Historical Provider LAB BLOOD ORDERABLES Bindu l Result Performing Organization Address [facility]/ZIP Co de Phone Number [facility] [address] [place] [address], * TSH (11/08/2014 1:15 PM EDT) TSH 1.436 0.350 - 5.350 UIU/mL [facility] Blood specimen (specimen) 11/08/2014 1:15 PM EDT [facility] - 11/08/2014 4:35 PM EDT Specimen Type: Blood Historical Provider LAB BLOOD ORDERABLES Bindu l Result Performing Organization Address City/[facility]/ZIP Co de Phone Number [facility] [address] [place] [address], * (ABNORMAL) Comprehensive metabolic panel (11/08/2014 1:15 PM EDT) Glucose 113(H) 70 - 100 mg/dL [facility] BUN 13 9 - 23 mg/dL [facility] Creatinine 0.6 0.6 - 1.3 mg/dL [facility] Sodium 141 132 - 146 mmol/L [facility] Potassium 3.5 3.5 - 5.5 mmol/L [facility] Chloride 96(L) 99 - 109 mmol/L [facility] CO2 30 20 - 31 mmol/L [facility] Calcium 9.7 8.7 - 10.4 mg/dL [facility] Alkaline Phosphatase 84 25 - 100 Units/L [facility] AST (SGOT) 69(H) 0 - 33 Units/L [facility] ALT (SGPT) 61(H) 7 - 40 Units/L [facility] Total Bilirubin 0.7 0.3 - 1.2 mg/dL [facility] Total Protein 7.5 5.7 - 8.2 g/dL [facility] Albumin 4.2 3.2 - 4.8 g/dL [facility] eGFR 112 ml/min/1.7 32 [facility] Comment: DF by IF @ 11/08/2014 16:35 ?? National Kidney Foundation Guidelines ?Stage ? Description ?GFR ?1 ?Normal or High ? 90+ ?2 ?Mild decrease ? 60-89 ?3 ?Moderate decrease ?30-59 ?4 ?Severe decrease ?15-29 ?5 ?Kidney failure ?<15 Anion Gap 15(H) 3 - 11 mmol/L [facility] Blood specimen (specimen) 11/08/2014 1:15 PM EDT [facility] - 11/08/2014 4:35 PM EDT Specimen Type: Blood [facility] Provider MD LAB BLOOD ORDERABLES Bindu l Result Performing Organization Address [facility] de Phone Number [facility] [address] [place] [address], * (ABNORMAL) Hemoglobin A1c (11/08/2014 1:15 PM EDT) [facility] Hemoglobin A1C 6.1(H) 4.00 - 6.00 % [facility] Comment: DF by IF @ 11/08/2014 15:55 The [place] [employer] recommends maintenance of Hemoglobin A1C at 7.0% or lower. Goals for Hemoglobin A1C reduction may need to be modified if hypoglycemia is a problem. Mean Bld Glu Estim. 123 mg/dL [facility] Blood specimen (specimen) 11/08/2014 1:15 PM EDT [facility] - 11/08/2014 3:55 PM EDT Specimen Type: Blood Luh Sanderson APRN LAB BLOOD ORDERABLES Fi nal Result Performing Organization Address [facility] [place] [address], * Vitamin B12 (11/08/2014 1:15 PM EDT) [facility] Vitamin B-12 706 211 - 911 pg/mL [facility] Blood specimen (specimen) 11/08/2014 1:15 PM EDT Narrative [facility] - 11/08/2014 4:35 PM EDT Specimen Type: Blood Luhroshan [facility] LAB BLOOD ORDERABLES Fi nal Result Performing Organization Address City/State/[facility] Co de Phone Number [facility] [address] [place] [address], * (ABNORMAL) CBC and Differential (11/08/2014 1:15 PM EDT) [facility] WBC 8.58 3.50 - 10.80 K/[facility] RBC 4.26 3.89 - 5.14 /[facility] Hemoglobin 13.1 11.5 - 15.5 g/dL [facility] Hematocrit 38.6 34.5 - 44.0 % [facility] MCV 90.6 80.0 - 99.0 fL [facility] MCH 30.8 27.0 - 31.0 pg [facility] MCHC 33.9 32.0 - 36.0 g/dL [facility] RDW-CV 13.5 11.3 - 14.5 % [facility] Platelets 279 150 - 450 [facility] Neutrophils Absolute 4.98 1.50 - 8.30 [facility] Lymphocytes Absolute 2.21 0.60 - 4.80 [facility] Monocytes Absolute 0.77 0.00 - 1.00 [facility] Eosinophils Absolute 0.56(H) 0.10 - 0.30 [facility] Basophils Absolute 0.03 0.00 - 0.20 [facility] Neutrophil Rel % 58.1 41.0 - 71.0 % [facility] Lymphocyte Rel % 25.8 24.0 - 44.0 % [facility] Monocyte Rel % 9.0 0.0 - 12.0 % [facility] Eosinophil Rel % 6.5(H) 0.0 - 3.0 % [facility] Basophil Rel % 0.3 0.0 - 1.0 % [facility] Immature Granulocyte Rel % 0.3 0.0 - 0.6 % [facility] Blood specimen (specimen) 11/08/2014 1:15 PM EDT [facility] - 11/08/2014 3:56 PM EDT Specimen Type: [facility] Fi nal Result Performing Organization Address [facility] [place] [address], * (ABNORMAL) Folate (11/08/2014 1:15 PM EDT) [facility] Folate >24.0(H) 3.2 - 20.0 ng/mL [facility] Comment: DF by IF @ 11/08/2014 16:35 Folate Reference Ranges: Deficient: ?Less than 1.2 ng/mL Indeterminant: ?1.2-3.1 ng/mL Normal: ?3.2-20.0 ng/mL Blood specimen (specimen) 11/08/2014 1:15 PM EDT [facility] - 11/08/2014 4:35 PM EDT Specimen Type: Blood [facility] BLOOD ORDERABLES Fi nal Result Performing Organization Address [facility] [place] [address], * (ABNORMAL) C-reactive protein (11/08/2014 1:15 PM EDT) [facility] C-Reactive Protein 52.8(H) 0.000 - 10.000 mg/L [facility] Blood specimen (specimen) 11/08/2014 1:15 PM EDT [facility] - 11/08/2014 4:23 PM EDT Specimen Type: Serum [address] [facility] LAB BLOOD ORDERABLES Fi nal Result Performing Organization Address City/[facility] Co de Phone Number [facility] [address] [place] [address], * (ABNORMAL) Sedimentation rate (11/08/2014 1:15 PM EDT) [facility] Sed Rate 46(H) 0 - 20 mm/hr [facility] Blood specimen (specimen) 11/08/2014 1:15 PM EDT [facility] - 11/08/2014 5:09 PM EDT Specimen Type: Blood [facility] BLOOD ORDERABLES Fi nal Result Performing Organization Address [facility] de Phone Number [facility] [address] [place] [address], * Methylmalonic acid, serum (11/08/2014 1:15 PM EDT) Pathologist [facility] Methylmalonic Acid 177 0 - 378 nmol/L [facility] Blood specimen (specimen) 11/08/2014 1:15 PM EDT [facility] - 11/11/2014 5:14 PM EDT Specimen Type: Blood PERFORMED AT: [address] [id number] [employer] ARCHITECT: Reg Lal MD ?? PHONE: [phone] [facility] LAB BLOOD ORDERABLES Fi nal Result Performing Organization Address City/[facility] Co de Phone Number [facility] [address] [place] [address], [place] [phone] * Vitamin D 25 hydroxy (11/08/2014 1:15 PM EDT) Pathologist [facility] 25 Hydroxy, Vitamin D 21.1 ng/mL [facility] Comment: DF by IF @ 11/08/2014 16:35 Reference Ranges for Total Vitamin D 25(OH) Deficiency <20.0 ng/ml Insufficiency ? 20-30 ng/ml Sufficiency 30-100 ng/ml Toxicity >100 ng/ml Blood specimen (specimen) 11/08/2014 1:15 PM EDT [facility] - 11/08/2014 4:35 PM EDT Specimen Type: Blood [facility] BLOOD ORDERABLES Fi nal Result Performing Organization Address [facility] Co de Phone Number [facility] [address] [place] [address], * Iron (11/08/2014 1:15 PM EDT) [facility] Iron 86 50 - 175 mcg/dL [facility] Blood specimen (specimen) 11/08/2014 1:15 PM EDT [facility] - 11/08/2014 4:35 PM EDT Specimen Type: Blood [facility] BLOOD ORDERABLES Fi nal Result [facility] [address] [place] [address], * Conv SVETLANA w/Reflex (11/08/2014 1:15 PM EDT) [facility] SVETLANA Negative NEGATIVE [facility] Blood specimen (specimen) 11/08/2014 1:15 PM EDT Narrative [facility] - 11/09/2014 3:18 PM EDT Specimen Type: Blood PERFORMED AT: [facility] [address] [place], [place] [id number] [employer] ARCHITECT: Hung Tolliver, PhD ?? PHONE: [phone] Luh Sanderson APRN LAB BLOOD ORDERABLES Fi nal Result [facility] [address] [place] [address], [place] [phone] documented in this encounter Visit Diagnoses Not on filedocumented in this encounter
--- OUTSIDE RECORDS SUMMARY | 2024-02-27 14:00 | XMS_ITS | Encounter Summary ---
Author Organization [employer] [facility] [employer] Address [address] [place] [address] Care Team Providers Care Commercial Crabber Name Role Phone Unavailable Primary Care Provider Unavailabl e Reason for Visit * Reason Comments Follow-up I&D left knee from KA 05/11/2014 Encounter Details Date Type Department Care Team (Late st Contact Info) Description 02/04/2023 1:00 PM EDT Office Visit [facility] - [address] [phone] Dunia Davalos PA-C [address] [place] [id number] S/P total knee arthroplasty, left (Primary Dx); Sciatica of left side Social History Tobacco Use Types Packs/Day Years Used Date Smoking Tobacco: Never Smokeless Tobacco: Current Tobacco Cessation:Ready to Q uit: Not Asked; Counseling Given: Not Answered Alcohol Use Standard Drinks/Week Comments Never 0 (1 standard drink = 0.6 oz pur e alcohol) Comments Unknown Sex and Gender Information Value Date Recorded Sex Assigned at Not on file Legal Sex Female 6:17 PM CDT Gender Identity Not on file Sexual Orientation Not on file documented as of this encounter Progress Notes * Dunia Davalos PA-C - 02/04/2023 1:00 PM EDT NAME: Jane S Maryanne CSN: [id number] : 1970 PCP: No primary care provider on file. REASON FOR VISIT Follow-up (I&D left knee from 06-25-14./LTKA 05/11/2014) WADE Madden is a 52 y.o. 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 albuterol HFA (VENTOLIN HFA) 90 mcg/actuation inhaler 2 puffs, Inhalation, Every 4 hours PRN ??? allopurinoL (ZYLOPRIM) 300 mg, Oral, Daily ??? carvediloL (COREG) 12.5 mg, Oral, 2 times daily ??? ergocalciferol (ERGOCALCIFEROL) 1,250 mcg (50,000 unit) capsule 1 capsule, Oral, Weekly ??? ezetimibe (ZETIA) 10 mg, Oral, Daily ??? Farxiga 10 mg, Oral, Daily ??? flecainide (TAMBOCOR) 50 mg, Oral, 2 times daily ??? gabapentin (NEURONTIN) 300 mg, Oral, Daily ??? hydroCHLOROthiazide (HYDRODIURIL) 25 MG tablet 1 tablet, Oral, Daily ??? loratadine (CLARITIN) 10 mg tablet 1 tablet, Oral, Daily ??? metoprolol succinate (TOPROL-XL) 50 mg, Oral, Daily ??? metoprolol tartrate (LOPRESSOR) 50 mg, Oral, 2 times daily ??? omeprazole (PRILOSEC) 20 mg, Oral, Daily ??? oxyCODONE (OXY-IR) 10 mg, Oral, 4 times daily PRN ??? Ozempic 0.25 mg or 0.5 mg (2 mg/3 mL) PnIj Subcutaneous ??? traZODone (DESYREL) 50 mg, Oral, Every Night ALLERGIES No Known Allergies PAST MEDICAL/SURGICAL HISTORY Past 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: Diagnosis Date ??? Chronic pain ??? Diabetes mellitus (HCC) ??? Hypertension Past Surgical History: Procedure Laterality Date ??? BACK SURGERY ??? REPLACEMENT TOTAL KNEE SOCIAL HISTORY Social History Tobacco Use ??? Smoking status: Never ??? Smokeless tobacco: Current Substance Use Topics ??? Alcohol use: Never ??? Drug use: Never FAMILY HISTORY Family History Problem Relation Age of Onset ??? Arthritis Other ??? Cancer Other ??? Diabetes Other ??? Heart disease Other ??? Hypertension Other ??? Kidney disease Other ??? Osteoporosis Other ??? Hyperlipidemia Other ??? Gout Other REVIEW OF SYSTEMS General: No recent fever or chills, no recent weight loss or weight gain, no insomnia HEENT: No change in vision, no glasses/contacts, no hearing loss, no tinnitus, no vertigo, no congestion/sinus issues CVS: No chest pain, no palpitations, no edema, no varicose veins Resp: No dyspnea, no wheezing, no cough, no hemoptysis GI: No dysphagia, no nausea, no vomiting, no heart burn, no constipation, no diarrhea : No dysuria, no hematuria, no nocturia, no history of chronic UTI Musculoskeletal: See HPI Derm: No rash, no abrasions, no skin discoloration, no history or MRSA Neuro: No headaches, no seizures, no stroke, no tremors, no muscle weakness, no difficulty walking,no numbness/tingling, no neuropathy Endo: No cold/heat intolerance Heme: No abnormal bruising or bleeding Psych: No depression, no anxiety, no fatigue, no mood swings Scribe Attestation: I, Karthikeyan White CMA acted as a scribe and transcribed components of the current encounter under the direction of the Attending Provider. I have not been involved in providing anyclinical treatments or patient care. Electronically Signed, Karthikeyan White CMA OBJECTIVE There were no vitals filed for this visit. Ortho Exam Left Knee Exam General: Awake, Alert, Oriented x3, Well developed Appearance: - Swelling, - deformity Palpation: Nontender ROM: 120 Flexion, Full Extension Strength: 4/5 Neurovascular: NVI, -Homans Skin: Healed incision Gait: normal + straight leg raise. IMAGING/OUTSIDE REPORTS XR knee 1 or 2 views left XR of left knee 2 views revealing press-fit PS prosthesis in good alignment without obvious evidence of acute osseous abnormality. Images similar to previous xrays obtained. Electronically Signed, Dunia Davalos PA-C 02/11/2023 11:51 AM ASSESSMENT Problem List Items Addressed This Visit Nervous and Auditory Sciatica of left side Relevant Medications carvediloL (COREG) 12.5 MG tablet ezetimibe (ZETIA) 10 mg tablet gabapentin (NEURONTIN) 300 MG capsule metoprolol tartrate (LOPRESSOR) 50 MG tablet oxyCODONE (OXY-IR) 10 mg tablet metoprolol succinate (TOPROL-XL) 50 MG 24 hr tablet Other S/P total knee arthroplasty, left - Primary Relevant Orders XR knee 1 or 2 views left (Completed) PLAN Return in about 2 years (around 02/04/2025) for Bilateral TKA with Xray . ??? Rest ??? Return to Clinic if new or worse symptoms occur ??? WBAT ??? Discussed with patient that her burning and radiating pain down the LLE seems to be coming fromthe back. She reports she had a previous back fracture, with surgical treatment. She is unsure who did the surgery as she was flown to and rushed into surgery. ??? Referral initiated today to Dr. Arrington. In Basket request sent to Sudha at time of visit to initiate referral Scribe Attestation: Sayda Pimentel CMA acted as a scribe and transcribed components of the current encounter under the direction of the Attending Provider. I have not been involved in providing any clinical treatments or patient care. Electronically Signed, Sayda Carrillo CMA I, Jenna Newkirk, PA-C attest that I have examined the above patient. I have dictated the exam, diagnosis, and plan to the scribe listed above to be transcribed into this document. I have supplemented the above documentation as warranted. I attest that I have reviewed the above documentation in itsentirety and concur. Electronically SignedDunia PA-C 02/04/2023 1:14 PM Jeremy Farncisco: Preet Hernandez [facility] is undergoing an EHR transition as of this date of service. There may be a delay in uploading older paper and EHR chart data to this new system. The above encounter has been documented to the best of the provider's working knowledge of the EHR in conjunction with medical information provided by the patient (and/or the patient's family member). documented in this encounter Plan of Treatment Not on file documented as of this encounter Results * XR knee 1 or 2 views left (02/04/2023 1:37 PM EDT) Anatomical Region Laterality Modality Thigh, Knee, Leg X-Ray Narrative 02/11/2023 11:52 AM EDT XR of left knee 2 views revealing press-fit PS prosthesis in good alignment without obvious evidence of acute osseous abnormality. ??Images similar to previous xrays obtained. Electronically Signed, Dunia Davalos PA-C 02/11/2023 11:51 AM us Endy Oviedo MD IMG DIAGNOSTIC IMAGING ORDERA BLES Final Result documented in this encounter Visit Diagnoses Diagnosis S/P total knee arthroplasty, left- Primary Sciatica of left side S/P total knee arthroplasty, left documented in this encounter
--- OUTSIDE RECORDS SUMMARY | 2024-02-27 14:00 | XMS_ITS | Referral Summary ---
Author Organization [employer] [facility] [employer] Address [address] [place] [address] Care Team Providers Care Heel Sewer Name Role Phone Unavailable Primary Care Provider Unavailabl e Allergies No known active allergies Medications albuterol HFA (VENTOLIN HFA) 90 mcg/actuation inhaler Inhale 2 puffs by mouth via inhaler every 4 (four) hours if needed. 11/29/2022 Active allopurinoL (ZYLOPRIM) 300 MG tablet Take 1 tablet (300 mg total) by mouth daily. 01/07/2023 Active carvediloL (COREG) 12.5 MG tablet Take 1 tablet (12.5 mg total) by mouth 2 (two) times daily. 01/01/2023 Active Farxiga 10 mg tablet Take 1 tablet (10 mg total) by mouth daily. 01/07/2023 Active ergocalciferol (ERGOCALCIFEROL ) 1,250 mcg (50,000 unit) capsule Take 1 capsule (50,000 Units total) by mouth once a week. 01/08/2023 Active ezetimibe (ZETIA) 10 mg tablet Take 1 tablet (10 mg total) by mouth daily. 01/03/2023 Active gabapentin (NEURONTIN) 300 MG capsule Take 1 capsule (300 mg total) by mouth daily. Max Daily Amount: 300 mg 12/27/2022 Active flecainide (TAMBOCOR) 50 MG tablet Take 1 tablet (50 mg total) by mouth 2 (two) times daily. 01/21/2023 Active hydroCHLOROthia zide (HYDRODIURIL) 25 MG tablet Take 1 tablet (25 mg total) by mouth daily. 10/25/2022 Active loratadine (CLARITIN) 10 mg tablet Take 1 tablet (10 mg total) by mouth daily. 01/08/2023 Active metoprolol tartrate (LOPRESSOR) 50 MG tablet Take 1 tablet (50 mg total) by mouth 2 (two) times daily. 01/21/2023 Active omeprazole (PriLOSEC) 20 MG capsule Take 1 capsule (20 mg total) by mouth daily. 01/21/2023 Active oxyCODONE (OXY-IR) 10 mg tablet Take 1 tablet (10 mg total) by mouth 4 (four) times daily as needed. Max Daily Amount: 40 mg 11/05/2022 Active Ozempic 0.25 mg or 0.5 mg (2 mg/3 mL) PnIj Inject subcutaneous ly. 01/03/2023 Active traZODone (DESYREL) 50 MG tablet Take 1 tablet (50 mg total) by mouth nightly. 01/07/2023 Active metoprolol succinate (TOPROL-XL) 50 MG 24 hr tablet Take 1 tablet (50 mg total) by mouth daily. Active Active Problems Problem Noted Date Diagnosed Date S/P total knee arthroplasty, left 02/11/2023 Sciatica of left side 02/11/2023 Social History Tobacco Use Types Packs/Day Years Used Date Smoking Tobacco: Never Smokeless Tobacco: Current Tobacco Cessation:Ready to Q uit: Not Asked; Counseling Given: Not Answered Alcohol Use Standard Drinks/Week Comments Never 0 (1 standard drink = 0.6 oz pur e alcohol) Interpersonal Safety Answer Date Record ed Family or friends hurt you Not on file 05/03 Family or friends insult you Not on file Family or friends threaten you Not on file 0 05/03/2023 Family or friends scream or curse at you Not on file 05/03/2023 Housing Stability Answer Date Recorded Living situation today Not on file Living situation problems Not on file 2023 Food Insecurity Answer Date Recorded Food run out past 12 months Not on file 04/15 Food did not last past 12 months Not on file 05/03/2023 Employment Answer Date Recorded Help finding and keeping a job Not on file 0 05/03/2023 Family and Community Support Answer Ajay e Recorded Help with Day to Day Activities Not on file 05/03/2023 Feeling Lonely or Isolated Not on file 05/03 Educational Attainment Answer Date William rded Speak language other than [place] at home Not on file 05/03/2023 Want help with school or training Not on file 05/03/2023 Depression Answer Date Recorded PHQ-2 Risk Not on file 05/03/2023 Disabilities Answer Date Recorded Difficulty concentrating Not on file 024 Difficulty doing errands alone Not on file 0 05/03/2023 Substance Use Answer Date Recorded Used prescription meds for non-medical reasons N ot on file 05/03/2023 Used illegal drugs past 12 months Not on file 05/03/2023 Comments Unknown Sex and Gender Information Value Date Recorded Sex Assigned at Not on file Legal Sex Female 6:17 PM CDT Gender Identity Not on file Sexual Orientation Not on file Plan of Treatment Not on file Insurance [employer] BILL [id number] [employer] [facility]
--- OUTSIDE RECORDS SUMMARY | 2024-02-27 14:00 | XMS_ITS | Encounter Summary ---
Author Organization [facility] Address [address] [place] [address] Care Team Providers Care Assembler Ping Pong Table Name Role Phone Klarissa Napier ZAHRA Primary Care Provider [phone] Encounter Details Date Type Department Care Team (Late st Contact Info) Description 11/11/2014 Documentation Converted [facility] HISTORICAL CONV [address] [place] [address] ProviderAnne-Marie MD [address] [place] [id number] Social History Tobacco Use Types Packs/Day Years Used Date Smoking Tobacco: Never Assessed Comments Unknown Sex and Gender Information Value Date Recorded Sex Assigned at Not on file Legal Sex Female 1:54 PM EDT Gender Identity Not on file Sexual Orientation Not on file documented as of this encounter Miscellaneous Notes * Telephone Encounter - Luh Sanderson APRN - 11/11/2014 1:16 PM EDT Message Recorded as Task Date: 11/08/2014 12:39 PM, Created By: Luh Sanderson Task Name: Miscellaneous Assigned To: Gladis Ferreira Regarding Patient: JANE FARIAS, Status: Active Comment: Luh Sanderson - 08 Nov 2014 12:39 PM TASK CREATED please request copy of mri brain report from [facility] done recently 2014 within the last 3 months. thanks Gladis Ferreira - 11 Nov 2014 1:16 PM TASK EDITED Called [phone] to request records, waiting on records to be sent. documented in this encounter Plan of Treatment Not on file documented as of this encounter Visit Diagnoses Not on filedocumented in this encounter Care Teams Assembler Ping Pong Table Relationship Specialty Start Date End Date Klarissa Napier, ASSIGNMENT MANAGER [address] [place] [id number] PCP - General 11/25/14 documented as of this encounter
--- OUTSIDE RECORDS SUMMARY | 2024-02-27 14:00 | XMS_ITS | Clinical Summary ---
Author Organization [facility] Address [address] [place] [address] Care Team Providers Care Chemical Librarian Name Role Phone Unavailable Primary Care Provider [...] left 02/11/2023 Sciatica of left side 02/11/2023 Family History 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 Relation Name Comments Arthritis Other Cancer Other Diabetes Other Gout Other Heart disease Other Hyperlipidemia Other Hypertension Other Kidney disease Other Osteoporosis Other Relation Name Status Comments Other Social History Tobacco Use Types Packs/Day Years [...] Date William rded Speak language other than Italian at home Not on file 05/03/2023 Want [...] Orientation Not on file Plan of Treatment Health Maintenance Due Date Last Done Comments CT Colonography 1968 Colonoscopy 1968 Colorectal Cancer Screening 1968 FOBT/FIT 1968 Fit-DNA (Cologuard) 1968 Sigmoidoscopy 1968 Depression Screening (12+) 1980 Tobacco Cessation Counseling and Screening (12+) 1980 HIV Screening 07/03/1983 Hepatitis C Screening 1986 DTAP/TDAP/TD VACCINES (1 - Tdap) 07/03/1987 Pap Smear 1989 Breast Cancer Screening 2008 Lipid Panel 2013 Shingles Vaccine (Zoster) (1 of 2) 2018 COVID-19 VACCINE ( season) 2023 Influenza Vaccine (#1) 2023 01/13/2015, 2011 Insurance BILL [place] [id number] [facility]
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
--- OUTSIDE RECORDS SUMMARY | 2024-02-27 14:00 | XMS_ITS | Encounter Summary ---
Author Organization [facility] Address [address] [place] [address] Care Team Providers Care Plate Driller Name Role Phone Klarissa Napier APRN Primary Care Provider [phone] Encounter Details Date Type Department Care Team (Late st Contact Info) Description 12/16/2014 Telephone Converted [facility] HISTORICAL CONV [address] [place] [address] ProviderAnne-Marie MD [address] [place] [address] Social History Tobacco Use Types Packs/Day Years Used Date Smoking Tobacco: Never Assessed Comments Unknown Sex and Gender Information Value Date Recorded Sex Assigned at Not on file Legal Sex Female 1:54 PM EDT Gender Identity Not on file Sexual Orientation Not on file documented as of this encounter Miscellaneous Notes * Telephone Encounter - Carson Mcleod MD - 12/16/2014 9:39 AM EDT Message Recorded as Task Date: 12/01/2014 [...] evaluation. Patient is looking for medication management. Carmen Lechuga - 14 Dec 2014 1:51 PM TASK REASSIGNED: Previously Assigned To Carmen Lechuga Gerald - 14 Dec 2014 2:33 PM TASK REPLIED TO: Previously Assigned To Carson Mcleod, noted Signatures Electronically signed by : Carmen Lechuga MA; Dec 16 2014 9:39AM EST (Author) documented in this encounter Plan of Treatment Not on file documented as of this encounter Visit Diagnoses Not on filedocumented in this encounter Care Teams Plate Driller Relationship Specialty Start Date End Date Klarissa Napier, [employer] [address] [place] [address] PCP - General 11/25/14 documented as of this encounter
--- OUTSIDE RECORDS SUMMARY | 2024-02-27 14:00 | XMS_ITS | Encounter Summary ---
Author Organization [facility] Address [address] [place] [address] Care Team Providers Care Online Content Developer Name Role Phone Klarissa Napier ZAHRA Primary Care Provider [phone]- [phone] Encounter Details Date Type Department Care Team (Late st Contact Info) Description 11/10/2014 Documentation Converted [facility] [address] [place] [address] ProviderAnne-Marie MD [address] [place] [id number] Social History Tobacco Use Types Packs/Day Years Used Date Smoking Tobacco: Never Assessed Comments Unknown Sex and Gender Information Value Date Recorded Sex Assigned at Not on file Legal Sex Female 1:54 PM EDT Gender Identity Not on file Sexual Orientation Not on file documented as of this encounter Progress Notes * Luh Sanderson APRN - 11/10/2014 3:55 PM EDT Message to Patient Your lab results are listed below. Your Sed rate and CRP are both moderately elevated and these aregeneral, nonspecific measures of inflammation in your body. The new medication we started you on for your facial pain should be beneficial. We may also consider sending you to Rheumatology if this levels continue to be elevated on your next visit. Your liver enzymes which include AST, ALT and Alk Phos are also elevated and you should take these labs with you to your next appointment with you Primary Care Provider to discuss any additional testing that needs to be done. I would recommend you avoid acetaminophen, tylenol and alcohol intake. We will see you as scheduled in our office. The remainder of your labs look good and you are Borderline Diabetic at this time and should avoid a lot of sugar. Jonathan, Luh Sanderson APRN Verified Results Sed Rate ( ESR ) [id number] 01:15PM Luh Sanderson Test Name Result Flag Reference Sed Rate 46 mm/hr H 0-20 CRP 08Nov2014 01:15 Luh Sanderson Test Name Result Flag Reference CRP 52.8 mg/L H 0.000-10.000 SVETLANA w Reflex [id number] 01:15 Luh Sanderson PERFORMED AT: [facility] [address] [id number] ENGLISH AND READING INSTRUCTOR: Hung Tolliver, PhD PHONE: [phone] Test Name Result Flag Reference SVETLANA Direct Negative Negative CBC With Auto Diff 08Nov2014 01:15 Luh Sanderson Test Name Result Flag Reference Abs Baso 0.03 K/mcL 0.00-0.20 WBC 8.58 K/mcL 3.50-10.80 Hemoglobin 13.1 g/dL 11.5-15.5 RBC 4.26 M/mcL 3.89-5.14 Hematocrit 38.6 % 34.5-44.0 MCV 90.6 fL 80.0-99.0 MCH 30.8 pg 27.0-31.0 MCHC 33.9 g/dL 32.0-36.0 Platelet 279 K/mcL 150-450 Neutrophils 58.1 % 41.0-71.0 Lymphocytes 25.8 % 24.0-44.0 Monocytes 9.0 % 0.0-12.0 Eosinophils 6.5 % H 0.0-3.0 Basophils 0.3 % 0.0-1.0 Abs Neutrophil 4.98 K/mcL 1.50-8.30 Abs Lymph 2.21 K/mcL 0.60-4.80 Abs Stanton 0.77 K/mcL 0.00-1.00 Abs Eos 0.56 K/mcL H 0.10-0.30 Immature Gran 0.3 % 0.0-0.6 RDWCV 13.5 % 11.3-14.5 Vitamin D 25 OH ( Hydroxy ) 08Nov2014 01:15PM Luh Sanderson Test Name Result Flag Reference Vitamin D 25(OH), Total 21.1 ng/mL Specimens containing fluorescein can produce falsely elevated values with this assay. Patients undergoing fluorescein dye angiography should wait 72 hours post-treatment before testing. Reference Ranges for Total Vitamin D 25(OH) Deficiency<20.0 ng/ml Insufficiency 20-30 ng/ml [id number] ng/ml Toxicity>100 ng/ml Vitamin B12 08Nov2014 01:15PM Luh Sanderson Test Name Result Flag Reference Vitamin B12 706 pg/mL 211-911 Folate 08Nov2014 01:15PM Luh Sanderson Test Name Result Flag Reference Folate >24.0 ng/mL H 3.2-20.0 Folate Reference Ranges: Deficient: Less than 1.2 ng/mL Indeterminant: 1.2-3.1 ng/mL Normal: 3.2-20.0 ng/mL Hemoglobin A1C 08Nov2014 01:15PM Luh Sanderson Test Name Result Flag Reference Hemoglobin A1C 6.1 % H 4.00-6.00 The [place] [employer] recommends maintenance of Hemoglobin A1C at 7.0% or lower. Goals for Hemoglobin A1C reduction may need to be modified if hypoglycemia is a problem. Estimated Mean Glucose 123 mg/dL Iron , Serum 08Nov2014 01:15PM Luh Sanderson Test Name Result Flag Reference Iron 86 mcg/dL 50-175 CMP 08Nov2014 01:15PM Luh Sanderson Test Name Result Flag Reference Glucose 113 mg/dL H 70-100 Creatinine 0.6 mg/dL 0.6-1.3 BUN 13 mg/dL 9-23 Sodium 141 mmol/L 132-146 Potassium 3.5 mmol/L 3.5-5.5 Chloride 96 mmol/L L 99-109 Carbon Dioxide 30 mmol/L 20-31 Calcium 9.7 mg/dL 8.7-10.4 Total Protein 7.5 g/dL 5.7-8.2 Albumin 4.2 g/dL 3.2-4.8 Bilirubin,Total 0.7 mg/dL 0.3-1.2 Alkaline Phos 84 Units/L 25-100 AST 69 Units/L H 0-33 ALT 61 Units/L H 7-40 Anion Gap 15 mmol/L H 3-11 Ext. MDRD GFR 112 ml/min/1.732 National [employer] Guidelines Stage Description GFR 1 Normal or High 90+ 2 Mild decrease 60-89 3 Moderate decrease 30-59 4 Severe decrease 15-29 5 Kidney failure <15 TSH [id number] 01:15PM Luh Sanderson Test Name Result Flag Reference TSH 1.436 UIU/mL 0.350-5.350 Specimens containing fluorescein can produce falsely depressed values with this assay. Patients undergoing fluorescein dye angiography should wait 72 hours post-treatment before testing. T4 ( Thyroxine ) Free [id number] 01:15PM Luh Sanderson Test Name Result Flag Reference Free T4 1.25 ng/dL 0.89-1.76 documented in this encounter Plan of Treatment Not on file documented as of this encounter Visit Diagnoses Not on filedocumented in this encounter Care Teams Online Content Developer Relationship Specialty Start Date End Date Klarissa Napier APRN [address] [place] [address] PCP - General 11/25/14 documented as of this encounter
--- OUTSIDE RECORDS SUMMARY | 2024-02-27 14:00 | XMS_ITS | Encounter Summary ---
Author Organization [facility] Address [address] [place] [address] Care Team Providers Care Spout Liner Helper Name Role Phone Klarissa Napier ZAHRA Primary Care Provider [phone]- [phone] Encounter Details Date Type Department Care Team (Late st Contact Info) Description 12/10/2014 Office Visit Converted [facility] [address] [facility] [address] [place] [address] Luh Sanderson APRN [address] [address] Social History Tobacco Use Types [...] Mass Index 41.44 12/10/2014 11:03 AM EDT documented in this encounter Progress Notes * Luh Sanderson APRN - 12/10/2014 11:30 AM EDT PCP/Referring Physician Primary Care Provider: Chief Complaint 1. Dizziness 2. Headache 3. Numbness (Hypesthesia) Mouth Hurting History of Present Illness HPI: Here for follow up on jaw pain following gum surgery. Her pain is intermittent, shooting and jolting in nature that is severe and then will resolve for 4 months and then return. Worsened with chewing and biting. Associated with headaches. She saw Dr. Lima who is another Neurologist in our practice without realizing we were in the same practice and he started her on Oxtellar XR 600mg 3 tabs daily and her pain has completely resolved. She is taking some Horizant very PRN for headaches andhas only required [address] Lima asked her to follow up with me as scheduled. She is doing really well overall and doesn't feel she needs to see Pain Management for injections at this time as previously referred. Review of Systems Constitutional: negative. Eyes: negative. ENT: negative. Cardiovascular: fast heart rate. Respiratory: shortness of breath. Gastrointestinal: negative. Genitourinary (Female): negative. Musculoskeletal: joint stiffness and joint swelling. Integumentary: negative. Neurological: headache, numbness and dizziness. Psychiatric: negative. Endocrine: negative. Hematologic/Lymphatic: negative. Active Problems 1. 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 Assessed By: Luh Sanderson (Neurology); Last Assessed: 10 Dec 2014 2. 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 Assessed By: Luh Sanderson (Neurology); Last Assessed: 10 Dec 2014 3. Chronic migraine without aura without status migrainosus, not intractable (346.70) (G43.709) ?? Assessed By: Luh Sanderson (Neurology); Last Assessed: 10 Dec 2014 4. Paresthesias (782.0) (R20.2) ?? Assessed By: Luh Sanderson (Neurology); Last Assessed: 10 Dec 2014 Past 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 1. History of arthritis (V13.4) (Z87.39) 2. History of cardiac disorder (V12.50) (Z86.79) 3. History of hypertension (V12.59) (Z86.79) 4. History of migraine (V12.49) (Z86.69) 5. History of Parkinson's disease (V12.49) (Z86.69) Family History 1. Family history of Alzheimer's disease (V17.2) (Z82.0) 2. Family history of cardiac disorder (V17.49) (Z82.49) 3. Family history of cerebrovascular accident (V17.1) (Z82.3) 4. Family history of dementia (V17.2) (Z82.0) 5. Family history of diabetes mellitus (V18.0) (Z83.3) 6. Family history of epilepsy (V17.2) (Z82.0) 7. Family history of hypertension (V17.49) (Z82.49) 8. Family history of malignant neoplasm (V16.9) (Z80.9) 9. Family history of Neurological disorder 10. Family history of Alzheimer's disease (V17.2) (Z82.0) 11. Family history of cardiac disorder (V17.49) (Z82.49) 12. Family history of cerebrovascular accident (V17.1) (Z82.3) 13. Family history of dementia (V17.2) (Z82.0) 14. Family history of diabetes mellitus (V18.0) (Z83.3) 15. Family history of epilepsy (V17.2) (Z82.0) 16. Family history of hypertension (V17.49) (Z82.49) 17. Family history of malignant neoplasm (V16.9) (Z80.9) 18. Family history of Neurological disorder Social History 1. 2. Never a smoker 3. Never smoked tobacco (V49.89) (Z78.9) ?? Assessed By: Luh Sanderson (Neurology); Last Assessed: 08 Nov 2014 4. No alcohol use Current Meds Medication Name Instruction Amitriptyline HCl - 50 MG Oral Tablet Aspirin 81 MG Oral Tablet Fish Oil 1000 MG Oral Capsule Flax OIL Flecainide Acetate 50 MG Oral Tablet Horizant 600 MG Oral Tablet Extended Release 1 tab qday prn headaches related to facial neuralgias. Loratadine 10 MG Oral Tablet Metoprolol Tartrate 50 MG Oral Tablet Multivitamin Gummies Adult Oral Tablet Chewable OXcarbazepine 300 MG Oral Tablet TAKE 1 TABLET TWICE DAILY. TraMADol HCl - 50 MG Oral Tablet Allergies 1. No Known Drug Allergies Vitals Signs [Data Includes: Current Encounter] Heart Rate: 83 Respiration: 18 Systolic: 114 Diastolic: 76 Height: 5 ft 5 in Weight: 249 lb BMI Calculated: 41.44 BSA Calculated: 2.17 O2 Saturation: 95 Physical Exam Constitutional General appearance: No acute distress, well appearing and well nourished. Musculoskeletal Gait and station: Normal gait, stance and balance. Muscle strength: Normal strength throughout. Muscle tone: No atrophy, abnormal movements, flaccidity, cogwheeling or spasticity. Involuntary movements: None observed. Neurologic Orientation to person, place, and time: Normal. Recent and remote memory: Demonstrates normal memory. Attention span and concentration: Normal thought process and attention span. Language: Names objects, able to repeat phrases and speaks spontaneously. Fund of knowledge: Normal vocabulary with appropriate knowledge of current events and past history. 1st cranial nerve: Normal. 2nd cranial nerve: Normal. 3rd, 4th, and 6th cranial nerves: Normal. 5th cranial nerve: Normal. 7th cranial nerve: Normal. 8th cranial nerve: Normal. 9th cranial nerve: Normal. 10th cranial nerve: Normal. 11th cranial nerve: Normal. 12th cranial nerve: Normal. Sensation: Normal. Reflexes: Normal. Coordination: Normal. Cortical function: Normal. Judgment and insight: Normal. Mood and affect: Normal. Radicular Testing: Normal. 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 Her did recommend referral to pain management for injections but due to patient's pain completely resolved she would like towait on this referral. Gave her 5 more samples of the Oxtellar XR 600mg to take TID. If Insurance will not approve this zack prescribed the 600mg IR TID. We will complete PA for her once required. I gave her 10 more Horizant pill samples for PRN headaches. We will follow up in 6 months to see how she is doing. Assessment 1. 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 Assessed By: Luh Sanderson (Neurology); Last Assessed: 10 Dec 2014 2. Chronic migraine without aura without status migrainosus, not intractable (346.70) (G43.709) ?? Assessed By: Luh Sanderson (Neurology); Last Assessed: 10 Dec 2014 Plan Atypical face pain, Atypical neuralgia 1. Stop: OXcarbazepine 300 MG Oral Tablet (Trileptal) Rx By: Luh Sanderson; Dispense: 30 Days ; #:60 Tablet; Refill: 3; For: Atypical face pain, Atypical neuralgia; PEPE = N; Sent To: [facility]; Msg to Pharmacy: TAKE 1/2 TABLET BID X 2 WEEKS THEN INCREASE TO WHOLE TAB BID. Atypical face pain, Atypical neuralgia, Paresthesias 2. Start: Oxtellar XR 600 MG Oral Tablet Extended Release 24 Hour; 1 TABLET 3 X DAILY FOR ATYPICAL FACIAL PAIN, NEURALGIA AND PARESTHESIAS Rx By: Luh Snaderson; Dispense: 0 Days ; #:90 Tablet Extended Release 24 Hour; Refill: 5; For: Atypical face pain, Atypical neuralgia, Paresthesias; PEPE = N; Verified Transmission to [facility]; Msg to Pharmacy: GAVE SAMPLES TODAY. PT MAY NEED A PA. IF NEEDED PLEASE CONTACT OUR OFFICE [facility].WE CAN TRY IR DOSE IF REQUIRED BUT DID TRY AND FAIL THIS ALREADY. THANKS; Last Updated By: Theresa Carl; 12/10/2014 11:36:37 AM Chronic migraine without aura without status migrainosus, not intractable 3. Follow-up visit in 6 months Evaluation and Treatment Follow-up Status: Hold For - Scheduling Requested for: [id number] Ordered; For: Chronic migraine without aura without status migrainosus, not intractable; Ordered By: Luh Sanderson Performed: Due: [id number] End of Encounter Meds Medication Name Instruction Amitriptyline HCl - 50 MG Oral Tablet Aspirin 81 MG Oral Tablet Fish Oil 1000 MG Oral Capsule Flax OIL Flecainide Acetate 50 MG Oral Tablet Horizant 600 MG Oral Tablet Extended Release 1 tab qday prn headaches related to facial neuralgias. Loratadine 10 MG Oral Tablet Metoprolol Tartrate 50 MG Oral Tablet Multivitamin Gummies Adult Oral Tablet Chewable Oxtellar XR 600 MG Oral Tablet Extended Release 24 Hour 1 TABLET 3 X DAILY FOR ATYPICAL FACIAL PAIN, NEURALGIA AND PARESTHESIAS. TraMADol HCl - 50 MG Oral Tablet Patient Care Team Care Spout Liner Helper Role Specialty Office Number LUH SANDERSON APRN Future Appointments Date/Time Provider Specialty Site 06/10/2015 11:30 AM Luh Sanderson APRN [facility]rology [facility] [place] The patient was counseled regarding instructions for management, risk factor reductions, prognosis,patient and family education, impressions, risks and benefits of treatment options and importance of compliance with treatment. Signatures Electronically signed by : Luh Sanderson APRN; Dec 10 2014 11:43AM EST (Author) documented in this encounter Miscellaneous Notes * Letter - Luh Sanderson APRN - 12/10/2014 11:30 AM EDT Chief Complaint 1. Dizziness 2. Headache 3. Numbness (Hypesthesia) Mouth Hurting History of Present Illness HPI: Here for follow up on jaw pain following gum surgery. Her pain is intermittent, shooting and jolting in nature that is severe and then will resolve for 4 months and then return. Worsened with chewing and biting. Associated with headaches. She saw Dr. Lima who is another Neurologist in our practice without realizing we were in the same practice and he started her on Oxtellar XR 600mg 3 tabs daily and her pain has completely resolved. She is taking some Horizant very PRN for headaches andhas only required [address] Lima asked her to follow up with me as scheduled. She is doing really well overall and doesn't feel she needs to see Pain Management for injections at this time as previously referred. Review of Systems Constitutional: negative. Eyes: negative. ENT: negative. Cardiovascular: fast heart rate. Respiratory: shortness of breath. Gastrointestinal: negative. Genitourinary (Female): negative. Musculoskeletal: joint stiffness and joint swelling. Integumentary: negative. Neurological: headache, numbness and dizziness. Psychiatric: negative. Endocrine: negative. Hematologic/Lymphatic: negative. Active Problems 1. 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 Assessed By: Luh Sanderson (Neurology); Last Assessed: 10 Dec 2014 2. 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 Assessed By: Luh Sanderson (Neurology); Last Assessed: 10 Dec 2014 3. Chronic migraine without aura without status migrainosus, not intractable (346.70) (G43.709) ?? Assessed By: Luh Sanderson (Neurology); Last Assessed: 10 Dec 2014 4. Paresthesias (782.0) (R20.2) ?? Assessed By: Luh Sanderson (Neurology); Last Assessed: 10 Dec 2014 Past 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 ?? History of arthritis (V13.4) (Z87.39) ?? History of cardiac disorder (V12.50) (Z86.79) ?? History of hypertension (V12.59) (Z86.79) ?? History of migraine (V12.49) (Z86.69) ?? History of Parkinson's disease (V12.49) (Z86.69) Family History ?? Family history of Alzheimer's disease (V17.2) (Z82.0) ?? Family history of cardiac disorder (V17.49) (Z82.49) ?? Family history of cerebrovascular accident (V17.1) (Z82.3) ?? Family history of dementia (V17.2) (Z82.0) ?? Family history of diabetes mellitus (V18.0) (Z83.3) ?? Family history of epilepsy (V17.2) (Z82.0) ?? Family history of hypertension (V17.49) (Z82.49) ?? Family history of malignant neoplasm (V16.9) (Z80.9) ?? Family history of Neurological disorder ?? Family history of Alzheimer's disease (V17.2) (Z82.0) ?? Family history of cardiac disorder (V17.49) (Z82.49) ?? Family history of cerebrovascular accident (V17.1) (Z82.3) ?? Family history of dementia (V17.2) (Z82.0) ?? Family history of diabetes mellitus (V18.0) (Z83.3) ?? Family history of epilepsy (V17.2) (Z82.0) ?? Family history of hypertension (V17.49) (Z82.49) ?? Family history of malignant neoplasm (V16.9) (Z80.9) ?? Family history of Neurological disorder Social History ? Never a smoker ?? Never smoked tobacco (V49.89) (Z78.9) ?? Assessed By: Luh Sanderson (Neurology); Last Assessed: 08 Nov 2014 ?? No alcohol use Current Meds Medication Name Instruction Amitriptyline HCl - 50 MG Oral Tablet Aspirin 81 MG Oral Tablet Fish Oil 1000 MG Oral Capsule Flax OIL Flecainide Acetate 50 MG Oral Tablet Horizant 600 MG Oral Tablet Extended Release 1 tab qday prn headaches related to facial neuralgias. Loratadine 10 MG Oral Tablet Metoprolol Tartrate 50 MG Oral Tablet Multivitamin Gummies Adult Oral Tablet Chewable OXcarbazepine 300 MG Oral Tablet TAKE 1 TABLET TWICE DAILY. TraMADol HCl - 50 MG Oral Tablet Allergies 1. No Known Drug Allergies Vitals Signs [Data Includes: Current Encounter] Heart Rate: 83 Respiration: 18 Systolic: 114 Diastolic: 76 Height: 5 ft 5 in Weight: 249 lb BMI Calculated: 41.44 BSA Calculated: 2.17 O2 Saturation: 95 Physical Exam Constitutional General appearance: No acute distress, well appearing and well nourished. Musculoskeletal Gait and station: Normal gait, stance and balance. Muscle strength: Normal strength throughout. Muscle tone: No atrophy, abnormal movements, flaccidity, cogwheeling or spasticity. Involuntary movements: None observed. Neurologic Orientation to person, place, and time: Normal. Recent and remote memory: Demonstrates normal memory. Attention span and concentration: Normal thought process and attention span. Language: Names objects, able to repeat phrases and speaks spontaneously. Fund of knowledge: Normal vocabulary with appropriate knowledge of current events and past history. 1st cranial nerve: Normal. 2nd cranial nerve: Normal. 3rd, 4th, and 6th cranial nerves: Normal. 5th cranial nerve: Normal. 7th cranial nerve: Normal. 8th cranial nerve: Normal. 9th cranial nerve: Normal. 10th cranial nerve: Normal. 11th cranial nerve: Normal. 12th cranial nerve: Normal. Sensation: Normal. Reflexes: Normal. Coordination: Normal. Cortical function: Normal. Judgment and insight: Normal. Mood and affect: Normal. Radicular Testing: Normal. 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 Her did recommend referral to pain management for injections but due to patient's pain completely resolved she would like towait on this referral. Gave her 5 more samples of the Oxtellar XR 600mg to take TID. If Insurance will not approve this zack prescribed the 600mg IR TID. We will complete PA for her once required. I gave her 10 more Horizant pill samples for PRN headaches. We will follow up in 6 months to see how she is doing. Assessment 1. 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 Assessed By: Luh Sanderson (Neurology); Last Assessed: 10 Dec 2014 2. Chronic migraine without aura without status migrainosus, not intractable (346.70) (G43.709) ?? Assessed By: Luh Sanderson (Neurology); Last Assessed: 10 Dec 2014 Plan Atypical face pain, Atypical neuralgia ?? Stop: 300 MG Oral Tablet (Trileptal) Rx By: Luh Sanderson; Dispense: 30 Days ; #:60 Tablet; Refill: 3; For: Atypical face pain, Atypical neuralgia; PEPE = N; Sent To: [facility]; Msg to Pharmacy: TAKE 1/2 TABLET BID X 2 WEEKS THEN INCREASE TO WHOLE TAB BID. Atypical face pain, Atypical neuralgia, Paresthesias ?? Start: XR 600 MG Oral Tablet Extended Release 24 Hour; 1 TABLET 3 X DAILY FOR ATYPICAL FACIAL PAIN, NEURALGIA AND PARESTHESIAS Rx By: Luh Sanderson; Dispense: 0 Days ; #:90 Tablet Extended Release 24 Hour; Refill: 5; For: Atypical face pain, Atypical neuralgia, Paresthesias; PEPE = N; Verified Transmission to [facility]; Msg to Pharmacy: GAVE SAMPLES TODAY. PT MAY NEED A PA. IF NEEDED PLEASE CONTACT OUR OFFICE [facility].WE CAN TRY IR DOSE IF REQUIRED BUT DID TRY AND FAIL THIS ALREADY. THANKS; Last Updated By: Theresa Carl; 12/10/2014 11:36:37 AM Chronic migraine without aura without status migrainosus, not intractable ?? Follow-up visit in 6 months Evaluation and Treatment Follow-up Status: Hold For - Scheduling Requested for: [id number] Ordered; For: Chronic migraine without aura without status migrainosus, not intractable; Ordered By: Luh Sanderson Performed: Due: [id number] End of Encounter Meds Medication Name Instruction Amitriptyline HCl - 50 MG Oral Tablet Aspirin 81 MG Oral Tablet Fish Oil 1000 MG Oral Capsule Flax OIL Flecainide Acetate 50 MG Oral Tablet Horizant 600 MG Oral Tablet Extended Release 1 tab qday prn headaches related to facial neuralgias. Loratadine 10 MG Oral Tablet Metoprolol Tartrate 50 MG Oral Tablet Multivitamin Gummies Adult Oral Tablet Chewable Oxtellar XR 600 MG Oral Tablet Extended Release 24 Hour 1 TABLET 3 X DAILY FOR ATYPICAL FACIAL PAIN, NEURALGIA AND PARESTHESIAS. TraMADol HCl - 50 MG Oral Tablet Patient Care Team Care Spout Liner Helper Role Specialty Office Number LUH SANDERSON APRN Future Appointments Date/Time Provider Specialty Site 06/10/2015 11:30 AM Luh Sanderson APRN Neurology [facility] [place] The patient was counseled regarding instructions for management, risk factor reductions, prognosis,patient and family education, impressions, risks and benefits of treatment options and importance of compliance with treatment. Signatures Electronically signed by : Luh Sanderson APRN; Dec 10 2014 11:43AM EST (Author) documented in this encounter Plan of Treatment Not on file documented as of this encounter Visit Diagnoses Not on filedocumented in this encounter Care Teams Spout Liner Helper Relationship Specialty Start Date End Date Klarissa Napier APRN [address] [place] [address] PCP - General 11/25/14 documented as of this encounter
--- OUTSIDE RECORDS SUMMARY | 2024-02-27 14:00 | XMS_ITS | Encounter Summary ---
Author Organization [employer] Address [address] [place] [address] Care Team Providers Care Vacuum Tester Cans Name Role Phone Unavailable Primary Care Provider Unavailabl e Encounter Details Date Type Department Care Team (Late st Contact Info) Description 02/04/2023 1:35 PM EDT Ancillary Procedure [facility] - [address] [phone] Endy Oviedo MD [address] [place] [id number] S/P total knee arthroplasty, left Social History Tobacco Use Types Packs/Day Years Used Date Smoking Tobacco: Never Smokeless Tobacco: Current Alcohol Use Standard Drinks/Week Comments Never 0 [...] Procedure Name Priority Date/Time Associated Diagnosis Comments XR KNEE 1 OR 2 VIEWS LEFT Routine 02/04/2023 1:37 PM EDT S/P total knee arthroplasty, left documented in this encounter Results * XR knee 1 [...] Visit Diagnoses Diagnosis S/P total knee arthroplasty, left documented in this encounter
--- OUTSIDE RECORDS SUMMARY | 2024-02-27 14:00 | XMS_ITS | Encounter Summary ---
Author Organization [facility] Address [address] [place] [address] Care Team Providers Care Die Casting Supervisor Name Role Phone Klarissa Napier APRN Primary Care Provider [phone] Encounter Details Date Type Department Care Team (Late st Contact Info) Description 11/15/2014 Documentation Converted [facility]ISTOR[facility] CONV [address] [place] [address] ProviderAnne-Marie MD [address] [place] [address] Social History Tobacco Use Types Packs/Day Years Used Date Smoking Tobacco: Never Assessed Comments Unknown Sex and Gender Information Value Date Recorded Sex Assigned at Not on file Legal Sex Female 1:54 PM EDT Gender Identity Not on file Sexual Orientation Not on file documented as of this encounter Progress Notes * Luh [place] APRN - 11/15/2014 8:38 AM EDT Verified Results Methylmalonic Acid , Blood ( MMA ) [id number] 01:15PM Luh Sanderson PERFORMED AT: [facility] [id number] MEAT CLERK: Reg Lal MD PHONE: [phone] Test Name Result Flag Reference Methylmalonic Acid, Serum 177 nmol/L 0-378 documented in this encounter Plan of Treatment Not on file documented as of this encounter Visit Diagnoses Not on filedocumented in this encounter Care Teams Die Casting Supervisor Relationship Specialty Start Date End Date Klarissa Napier APRN [address] [place], [place] [id number] PCP - General 11/25/14 documented as of this encounter
--- OUTSIDE RECORDS SUMMARY | 2024-02-27 14:01 | XMS_ITS | Encounter Summary ---
Author Organization [place] [address] Care Team Providers Care Varnish Melter Helper Name Role Phone Juana Bailey APRN Primary Care Provider [phone] Reason for Visit * Reason Comments Medication Refill Encounter Details Date Type Department Care Team (Late st Contact Info) Description 01/27/2024 Refill [facility] [address] [place] [address] Juana Bailey APRN [address] [facility] [place] [address] Medication Refill Social History Tobacco Use Types Packs/Day Years Used Date Smoking Tobacco: Never Smokeless Tobacco: Current Snuff Alcohol Use Standard Drinks/Week Comments Not Currently 0 (1 standard drink = 0.6 oz pur e alcohol) Overall Financial Resource Strain ([facility]) Answe r Date Recorded How hard is it for you to pa y for the very basics like food, housing, medical care, and heating? Not very hard 03/05/2023 PHQ-2 Answer Date Recorded PHQ-2 Total Score 0 10/24/2023 [facility] [place] of Occupat ional Health - Occupational Stress [...] place to sleep or slept in a detention (including now)? No 03/05/2023 Sexually Active Control Partners Comments Yes Male Comments No Sex and Gender Information Value Date Recorded Sex Assigned at Not on file Legal Sex Female 11:17 AM MIRIAM Gender Identity Not on file Sexual Orientation Not on file documented as of this encounter Functional Status * Is the person deaf or does he/she have serious difficulty hearing? Answer Date of Assessment Author No 10/24/2023 9:27 AM Alden Polanco CCMA * Is the person blind or does he/she have serious difficulty seeing even when wearing glasses? Answer Date of Assessment Author No 10/24/2023 9:27 AM Alden Polanco CCMA * Does this person have serious difficulty walking or climbing stairs? Answer Date of Assessment Author No 10/24/2023 9:27 AM Alden Polanco CCMA * Does this person have difficulty dressing or bathing? Answer Date of Assessment Author No 10/24/2023 9:27 AM Alden Polanco CCMA * Because of a physical, mental or emotional condition, does this person have difficulty doing errands alone such as visiting a doctor's office or shopping? Answer Date of Assessment Author No 10/24/2023 9:27 AM Alden Polanco CCMA documented as of this encounter Mental Status * Because of a physical, mental or emotional condition, does this person have serious difficulty concentrating, remembering or making decisions? Answer Entry Date Author No 10/24/2023 9:27 AM Alden Polanco CCMA documented in this encounter Ordered Prescriptions Prescription Sig Dispense Quantity Refills Last Filled Start Date End Date dapagliflozin propanediol (FARXIGA) 10 mg Oral TabletIndications:St age 3b chronic kidney disease (HCC),Type 2 diabetes mellitus with hyperlipidemia (HCC),ASHD (arteriosclerotic heart disease) TAKE ONE TABLET BY MOUTH ONCE A DAY 100 Tablet 1 01/29/2024 ergocalciferol (DRISDOL) 1,250 mcg (50,000 unit) Oral Capsule TAKE 1 CAPSULE BY MOUTH ONE TIME PER WEEK 4 Capsule 01/29/2024 documented in this encounter Miscellaneous Notes * Telephone Encounter - Caty Chanel CPhT - 01/29/2024 8:15 AM EDT ergocalciferol (DRISDOL) 1,250 mcg (50,000 unit) Oral Capsule There is no CRS protocol for this medication. FARXIGA 10 mg Oral Tablet Future Visit: 02/05/24 Last Assessed Visit: 12/24/23 Follow-Up Date: 06/22/24 All protocols passed. Refills approved and sent to requesting pharmacy. Routed to [facility] if applicable. documented in this encounter Plan of Treatment Upcoming Encounters Date Type Department Care Team (Late st Contact Info) Description 05/07/2024 1:00 PM EST Office Visit [facility] [place] [facility] [address] [place] [phone] Juana Bailey APRN [address] [place] [address] documented as of this encounter Goals Goal Patient Goal Type Associated Problems Recent Progress Patient-Stated? Author Blood Pressure < 140/90 Blood Pressure 112/70(2023 8:24 AM EDT) No Juana Bailey APRN Maintain a healthy diet, exercise regularly and maintain an ideal body weight General No Noelle Yeh RMA BMI (Calculated) < 30 General 38.7(10/24/19 9:24 AM EDT) No Juana Bailey APRN Stay Tobacco Free Lifestyle No Juana Bailey APRN HEMOGLOBIN A1C < 7.0 Result Component 6.1( 9:55 AM EDT) No Juana Bailey APRN documented as of this encounter Visit Diagnoses Diagnosis Stage 3b chronic kidney disease (HCC) Type 2 diabetes mellitus with hyperlipidemia (HCC) ASHD (arteriosclerotic heart disease) Coronary atherosclerosis of unspecified type of vessel, [place] or graft documented in this encounter Discontinued Medications Medication Sig Discontinue Reason Start Date End Da te dapagliflozin propanediol (FARXIGA) 10 mg Oral TabletIndications:Stage 3b chronic kidney disease (HCC),Type 2 diabetes mellitus with hyperlipidemia (HCC),ASHD (arteriosclerotic heart disease) TAKE ONE TABLET BY MOUTH ONCE A DAY 10/22/2023 01/29/2024 ergocalciferol (DRISDOL) 1,250 mcg (50,000 unit) Oral Capsule TAKE 1 CAPSULE BY MOUTH ONE TIME PER WEEK 11/07/2023 01/29/2024 documented as of this encounter Care Teams Varnish Melter Helper Relationship Specialty Start Date End Date Juana Bailey APRN [address] [place] [address] PCP - General Nurse Practitioner-Family 08/29/22 documented as of this encounter
--- OUTSIDE RECORDS SUMMARY | 2024-02-27 14:01 | XMS_ITS | Encounter Summary ---
Author Organization [place] [address] Care Team Providers Care Grants Administrator Name Role Phone Juana Bailey APRN Primary Care Provider [phone] Reason for Visit * Reason Comments Medication Refill Encounter Details Date Type Department Care Team (Late st Contact Info) Description 12/23/2023 Refill [facility] [address] [place] [address] Juana Bailey APRN [address] [place] [address] Medication Refill Social History Tobacco Use Types Packs/Day Years Used Date Smoking Tobacco: Never Smokeless Tobacco: Current Snuff Alcohol Use Standard Drinks/Week Comments Not Currently 0 (1 standard drink = 0.6 oz pur e alcohol) Overall Financial Resource Strain ([facility]) Answe r Date Recorded How hard is it for you to pa y for the very basics like food, housing, medical care, and heating? Not very hard 03/05/2023 PHQ-2 Answer Date Recorded PHQ-2 Total Score 0 10/24/2023 [facility] [place] of Occupat ional Health - Occupational Stress [...] place to sleep or slept in a fdc (including now)? No 03/05/2023 Sexually Active Control [...] of Assessment Author No 10/24/2023 9:27 AM Adlen Polanco CCMA * Is the person blind [...] Refills Last Filled Start Date End Date loratadine (CLARITIN) 10 mg Oral Tablet TAKE ONE TABLET BY MOUTH ONCE A DAY 30 Tablet 12/24/2023 01/21/2024 documented in this encounter Plan of Treatment Upcoming Encounters Date Type Department Care Team (Late st Contact Info) Description 05/07/2024 1:00 PM EST Office Visit [facility] [address] [phone] Juana Bailey APRN [address] [facility] [place] [address] documented as of this encounter Goals Goal Patient Goal Type Associated Problems Recent Progress Patient-Stated? Author Blood Pressure < 140/90 Blood Pressure 112/70(2023 8:24 AM EDT) No Juana Bailey APRN Maintain a healthy diet, exercise regularly and maintain an ideal body weight General No Noelle Yeh RMA BMI (Calculated) < 30 General 38.7(10/24/19 24 9:24 AM EDT) No Juana Bailey APRN Stay Tobacco Free Lifestyle No Juana Bialey APRN HEMOGLOBIN A1C < 7.0 Result Component 6.1( 9:55 AM EDT) No Juana Bailey APRN documented as of this encounter Visit Diagnoses Not on filedocumented in this encounter Discontinued Medications Medication Sig Discontinue Reason Start Date End Da te loratadine (CLARITIN) 10 mg Oral Tablet TAKE ONE TABLET BY MOUTH ONCE A DAY 11/20/2023 12/24/2023 documented as of this encounter Care Teams Grants Administrator Relationship Specialty Start Date End Date Juana Bailey APRN [address] [place] [address] PCP - General Nurse Practitioner-Family 08/29/22 documented as of this encounter
--- OUTSIDE RECORDS SUMMARY | 2024-02-27 14:01 | XMS_ITS | Encounter Summary ---
Author Organization [place] [address] Care Team Providers Care Healthcare Consultant Name Role Phone Juana Bailey APRN Primary Care Provider [phone] Reason for Visit * Reason Comments Medication Refill Encounter Details Date Type Department Care Team (Late st Contact Info) Description 10/07/2023 Refill [facility] [address] [place] [address] Juana Bailey APRN [address] [place] [address] Medication Refill Social History Tobacco Use Types Packs/Day Years Used Date Smoking Tobacco: Never Smokeless Tobacco: Current Snuff Alcohol Use Standard Drinks/Week Comments Not Currently 0 (1 standard drink = 0.6 oz pur e alcohol) Overall Financial Resource Strain ([facility]) Answe r Date Recorded How hard is it for you to pa y for the very basics like food, housing, medical care, and heating? Not very hard 03/05/2023 PHQ-2 Answer Date Recorded PHQ-2 Total Score 0 11/07/2022 [facility] [place] of Occupat ional Health - Occupational Stress [...] place to sleep or slept in a jail (including now)? No 03/05/2023 Sexually Active Control [...] hearing? Answer Date of Assessment Author No 11/07/2022 2:28 PM Alden Polanco CCMA * Is the person blind or does he/she have serious difficulty seeing even when wearing glasses? Answer Date of Assessment Author No 11/07/2022 2:28 PM Alden Polanco CCMA * Does this person have serious difficulty walking or climbing stairs? Answer Date of Assessment Author No 11/07/2022 2:28 PM Alden Polanco CCMA * Does this person have difficulty dressing or bathing? Answer Date of Assessment Author No 11/07/2022 2:28 PM Alden Polanco CCMA * Because of a physical, mental or emotional condition, does this person have difficulty doing errands alone such as visiting a doctor's office or shopping? Answer Date of Assessment Author No 11/07/2022 2:28 PM Alden Polanco CCMA documented as of this encounter Mental Status * Because of a physical, mental or emotional condition, does this person have serious difficulty concentrating, remembering or making decisions? Answer Entry Date Author No 11/07/2022 2:28 PM EDAlden Al CCMA documented in this encounter Ordered Prescriptions Prescription Sig Dispense Quantity Refills Last Filled Start Date End Date loratadine (CLARITIN) 10 mg Oral Tablet TAKE ONE TABLET BY MOUTH ONCE A DAY 30 Tablet 10/08/2023 4 ergocalciferol (DRISDOL) 1,250 mcg (50,000 unit) Oral Capsule TAKE 1 CAPSULE BY MOUTH ONE TIME PER WEEK 4 Capsule 10/08/2023 4 documented in this encounter Plan of Treatment Upcoming Encounters Date Type Department Care Team (Late st Contact Info) Description 05/07/2024 1:00 PM EST Office Visit [facility] [address] [phone] Juana Bailey APRN [address] [place] [address] documented as of this encounter Goals Goal Patient Goal Type Associated Problems Recent Progress Patient-Stated? Author Blood Pressure < 140/90 Blood Pressure 112/70(2023 8:24 AM EDT) No Juana Bailey APRN Maintain a healthy diet, exercise regularly and maintain an ideal body weight General Noelle Miller RMA BMI (Calculated) < 30 General 38.7(10/24/19 24 9:24 AM EDT) No Juana Bailey APRN Stay Tobacco Free Lifestyle No Juana Bailey APRN HEMOGLOBIN A1C < 7.0 Result Component 6.1( 9:55 AM EDT) No Juana Bailey APRN documented as of this encounter Visit Diagnoses Not on filedocumented in this encounter Discontinued Medications Medication Sig Discontinue Reason Start Date End Da te ergocalciferol (DRISDOL) 1,250 mcg (50,000 unit) Oral Capsule TAKE 1 CAPSULE BY MOUTH ONE TIME PER WEEK 09/05/2023 10/08/2023 loratadine (CLARITIN) 10 mg Oral Tablet TAKE ONE TABLET BY MOUTH ONCE A DAY 09/05/2023 10/08/2023 documented as of this encounter Care Teams Healthcare Consultant Relationship Specialty Start Date End Date Juana Bailey APRN [address] [place] [address] PCP - General Nurse Practitioner-Family 08/29/22 documented as of this encounter
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
--- OUTSIDE RECORDS SUMMARY | 2024-02-27 14:01 | XMS_ITS | Referral Summary ---
Author Organization [facility] Address [address] [place] [phone] Phone Care Team Providers Care Lagging Machine Operator Name Role Phone Juana Bailey APRN Primary Care Provider Encounters Date Type Department Care Team Description 02/12/2024 Orders Only SEP [address] [place] [phone] [place], Juana, DRY CLEANER APPRENTICE 02/11/[address] [place] [phone] [place], Juana, DRY CLEANER APPRENTICE Symptoms (Only Use If Pt Pushes Back On Scheduling A Visit) (so tired and drained after having covid. ); Patient Returning Call (Requesting a call back) 02/05/2024 8:30 AM EDT Office Visit [place] [address] [place] [phone] Lynn, Juana, DRY CLEANER APPRENTICE Type 2 diabetes mellitus with hyperlipidemia (HCC) (Primary Dx); Acute right-sided thoracic back pain 02/03/[address] [place] [phone] [place], Juana, DRY CLEANER APPRENTICE Medication Refill 01/27/2024 Refill SEP [address] [place] [phone] [place], Juana, DRY CLEANER APPRENTICE Medication Refill 01/20/2024 Refill SEP [address] [place] [phone] [place], Juana, DRY CLEANER APPRENTICE Medication Refill 01/17/[address] [place] [phone] [place], Juana, DRY CLEANER APPRENTICE Refill ( Disp Refills Start End /semaglutide [...] issue); Patient Returning Call (PA) 01/08/[address] [place] [phone] [place] Juana, DRY CLEANER APPRENTICE Medication Refill 12/26/[address] [place] [phone] Juana Bailey, DRY CLEANER APPRENTICE Other (Was fax received ) 12/24/2023 9:00 AM EDT Office Visit [address] [place] [phone] [facility], DRY CLEANER APPRENTICE Type 2 diabetes mellitus with hyperlipidemia (HCC) (Primary Dx); Essential hypertension; Morbid obesity (HCC); Dyslipidemia; Encounter for screening 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 cancer; Cervical radiculopathy 12/23/2023 Refill SE[facility] [address] [place] [phone] LynnJuana lemon, DRY CLEANER APPRENTICE Medication Refill 12/03/[address] [place] [phone] [place], Juana, DRY CLEANER APPRENTICE Medication Refill 11/27/2023 Patient Outreach [facility] [address] [place], [place] [id number] Juana Bailey APRN Central Order Completion Outreach (mammogram ) from Last 3 Months Allergies No known active allergies Medications aspirin-dipyridam ole (AGGRENOX) 25-200 mg Oral Cap, Multiphasic Release 12 hr Take 1 Capsule by mouth 2 times daily. Once daily Active fish oil OTC (OMEGA-3 DHA-EPA 300 MG) 300-1,000 mg Oral Capsule, Delayed Release(E.C.) Take 2 g by mouth daily. Active b lxziidg-U-yypzb acid (NEPHROCAP) 1 mg Oral Capsule Take [...] MOUTH ONCE A DAY 90 Tablet 3 023 Active hydroCHLOROthiazi de 25 mg Oral TabletIndications :Peripheral edema TAKE ONE TABLET BY MOUTH ONCE A DAY 90 Tablet 3 023 Active omeprazole (PRILOSEC) 20 mg Oral Capsule, Delayed Release(E.C.) TAKE 1 CAPSULE BY MOUTH ONCE A DAY 90 Capsule 024 Active flecainide (TAMBOCOR) 50 mg Oral Tablet TAKE ONE TABLET BY MOUTH 2 TIMES A DAY 60 Tablet 5 024 Active metoprolol (LOPRESSOR) 50 mg Oral Tablet TAKE ONE TABLET BY MOUTH 2 TIMES A DAY 180 Tablet 5 024 Active ezetimibe (ZETIA) 10 mg Oral TabletIndications :Type 2 diabetes mellitus with hyperlipidemia (HCC),Statin myopathy TAKE ONE TABLET BY MOUTH ONCE A DAY 90 Tablet 09/26/2 024 Active semaglutide (OZEMPIC) 2 mg/dose (8 mg/3 [...] 2 Tablets by mouth daily. 60 Tablet Active Cholecalciferol, Vitamin D3, 125 mcg (5,000 [...] gain 08/02/202210/23 Dyspnea on exertion 07/04/2022 10/24/19 Immunizations Name Administration Dates Next Due Influenza Seasonal Injectable 01/13/2015, 012 Influenza, Injectable,Quadrivalent,PF,Pediatric 01/15/2019 PPD Test 12/18/2022 Social History Tobacco Use Types Packs/Day Years [...] Date Recorded PHQ-2 Total Score 0 10/24/2023 [facility] - Occupational Stress Questionnaire Answer Date Recorded [...] place to sleep or slept in a alf (including now)? No 03/05/2023 Sexually Active Control [...] Mass Index 35.78 10/24/2023 9:24 AM EDT Functional Status * Is the person deaf or does he/she have serious difficulty hearing? Answer Date of Assessment Author No 10/24/2023 9:27 AM EDT Alden Crowell CCMA * Is the person blind or does he/she have serious difficulty seeing even when wearing glasses? Answer Date of Assessment Author No 10/24/2023 9:27 AM EDT Alden Crowell CCMA * Does this person have serious difficulty walking or climbing stairs? Answer Date of Assessment Author No 10/24/2023 9:27 AM EDAldne Al CCMA * Does this person have difficulty dressing or bathing? Answer Date of Assessment Author No 10/24/2023 9:27 AM EDT Alden Crowell CCMA * Because of a physical, mental or emotional condition, does this person have difficulty doing errands alone such as visiting a doctor's office or shopping? Answer Date of Assessment Author No 10/24/2023 9:27 AM EDT Alden Crowell CCMA Mental Status * Because of a physical, mental or emotional condition, does this person have serious difficulty concentrating, remembering or making decisions? Answer Entry Date Author No 10/24/2023 9:27 AM EDAlden Al CCMA Plan of Treatment Upcoming Encounters Date Type Department Care Team (Late st Contact Info) Description 05/07/2024 1:00 PM EST [facility] Visit [facility] [address] [place] [address] Juana Bailey APRN [address] [place] [id number] Goals Goal Patient Goal Type Associated Problems Recent Progress Patient-Stated? Author Blood Pressure < 140/90 Blood Pressure 112/70(2023 8:24 AM EDT) No LynnJuana, DRY CLEANER APPRENTICE Maintain a healthy diet, exercise regularly and maintain an ideal body weight General No Noelle Yeh RMA BMI (Calculated) < 30 General 38.7(10/24/19 9:24 AM EDT) No [facility] Center[facility], DRY CLEANER APPRENTICE Stay Tobacco Free Lifestyle No Juana Bailey APRN HEMOGLOBIN A1C < 7.0 Result Component 6.1( 9:55 AM EDT) No Juana Bailey APRN Procedures Procedure Name Priority Date/Time Associated Diagnosis [...] Type 2 diabetes mellitus with hyperlipidemia (HCC) [facility]ENT CYTOLOGY ORDER Routine 05/22/2023 9:58 AM EST [...] DIABETIC RETINOPATHY EXAM (12/24/2023 9:35 AM EDT) Retinopathy Exam Severity NORMAL SE LAB Right Diabetic Retinopathy None SE LAB Right Macular Edema None SE LAB Right Other Retina None SE LAB Right Eye Image Quality Gradable Image SE LAB Left Diabetic Retinopathy None SE LAB Left Macular Edema None SE LAB Left Other Retina None [facility] Left Eye Image Quality Gradable Image [facility] 12/24/2023 9:35 AM EDT 12/24/2023 9:35 AM EDT Impressions [facility] - 12/24/2023 9:40 AM EDT Retinal Study Result for JANE FARIAS, a 53 y/o, F (: 1970, ) presented to [facility] on 12-24-2023 for a retinal imaging [...] signed by Fitz Gusman MD, , Taxonomy: [id number] on 12-24-2023 13:40 UT. NOTE: ??Any pathology noted on this diabetic retinal evaluation should be confirmed by an appropriate ophthalmic examination. us Juana Bailey APRN OPHTHALMOLOGY SERVICES SURESH CALDERON Final Result [facility] [address] [place] [id number] * MICROALBUMIN/CREATININE RATIO URINE (10/24/2023 11:36 AM EDT) Pathologist [facility] Urine Microalb <12.0 mg/L 10/24/2023 4:23 PM EDT [facility] Urine Creatinine 96.8 mg/dL 10/24/19 24 4:23 PM EDT [facility] Ur Microalb/Creat 024 4:23 PM EDT [employer] Comment: Because the albumin level is below the level of detection in this urine specimen, the laboratory is unable to calculate a reliable albumin/creatinine ratio. Microalbuminuria is unlikely if the urine albumin concentration is less than 20- 30 mg/L in a random specimen. Urine URINE SPECIMEN COLLECTION / Unknown 10/24/2023 11:36 AM EDT 10/24/2023 11:36 AM EDT Juana Bailey DRY CLEANER APPRENTICE URINE ORDERABLES Final Resu lt [facility] [address] , [place] [address] * (ABNORMAL) LIPID PANEL REFLEX (10/24/2023 9:55 AM EDT) Pathologist [facility] Cholesterol 155 <200 mg/dL 10/24/2023 4:15 PM EDT [facility] Comment: < 200 ?Desirable 200 - 239 ? Borderline High >= 240 ?High Triglyceride 231(H) <150 mg/dL 10/24/2023 4:15 PM EDT [employer] Comment: < 150 ? Normal 150 - 199 ?Borderline High 200 - 499 ?High ??>= 500 ? Very High HDL 42 >=40 mg/dL 10/24/2023 4:15 PM EDT [employer] Comment: ??> 60 ?Optimal 40 - 60 ?Acceptable ?? < 40 ?Low LDL Calculated 75 <100 mg/dL 10/24/2023 4:15 PM EDT [facility], [facility] Non-HDL-C Calculated 113 <=129 mg/dL 10/24/2023 4:15 PM EDT [facility], [facility] Comment: <130 ?Desirable 130-159 Above Desirable 160-189 Borderline High 190-219 High >= 220 ??Very High Fasting Specimen? Yes None 024 4:15 PM EDT [facility] Blood VENOUS BLOOD / Unknown Venipuncture / Unknown 10/24/2023 9:55 AM EDT 10/24/2023 9:55 AM EDT Juana Bailey APRN CHEMISTRY ORDERABLES Final Result [facility], [facility] [address], [place] [address] [facility] [address] [place] [address] * (ABNORMAL) HEMOGLOBIN A1C (10/24/2023 9:55 AM EDT) Hgb A1C 6.1(H) 4.2 - 5.6 % 10/24/2023 4:28 PM EDT [facility], [facility] Est. Avg Glucose 128 mg/dL 10/24/2023 4:28 PM EDT [facility], [facility] Blood VENOUS BLOOD / Unknown Venipuncture / Unknown 10/24/2023 9:55 AM EDT 10/24/2023 9:55 AM EDT Narrative [facility] - 10/24/2023 4:28 PM EDT REFERENCE RANGE: Normal: 4.0-5.6% Pre-diabetes: 5.7-6.4% Provisional diagnosis of diabetes: >6.4% Hgb F>10% and anything which shortens red cell survival, such as hemolytic anemia, or unstable hemoglobin variants such as HbSS, HbSC, or HbCC, will lower the HbA1c value associated with a given level of glycemic control. ? Juana Bailey DRY CLEANER APPRENTICE CHEMISTRY ORDERABLES Final Result [facility], [facility] [address] , [address] [place], [place] [id number] * DIABETES EYE EXAM (02/20/2022 8:43 AM EST) Left Diabetic Retinopathy Not Present Present/Not Present SEP OFFICE Right Diabetic Retinopathy Not Present Present/Not Present SEP OFFICE us Historical Provider Generic HEALTH MAINTENANCE E dited Result - Final SEP OFFICE from Last 3 Months or Most Recently Relevant to Health Maintenance Insurance BILL [place] [id number] [facility] [place] [address] B[place] [id number] [facility] [place] Care Teams Lagging Machine Operator Relationship Specialty Start Date End Date Juana Bailey APRN [address] [place] [address] PCP - General Nurse Practitioner-Family 08/29/22
--- OUTSIDE RECORDS SUMMARY | 2024-02-27 14:01 | XMS_ITS | Encounter Summary ---
Author Organization [place] [address] Care Team Providers Care Laminator Printed Circuit Boards Name Role Phone Juana Bailey APRN Primary Care Provider [phone] Reason for Visit * Reason Comments Medication Refill Encounter Details Date Type Department Care Team (Late st Contact Info) Description 01/20/2024 Refill [facility] [address] [place] [address] Juana Bailey APRN [address] [facility] [place] [address] Medication Refill Social History Tobacco Use Types Packs/Day Years Used Date Smoking Tobacco: Never Smokeless Tobacco: Current Snuff Alcohol Use Standard Drinks/Week Comments Not Currently 0 (1 standard drink = 0.6 oz pur e alcohol) Overall Financial Resource Strain ([facility]) Answe r Date Recorded How hard is it for you to pa y for the very basics like food, housing, medical care, and heating? Not very hard 03/05/2023 PHQ-2 Answer Date Recorded PHQ-2 Total Score 0 10/24/2023 [facility] [place] of Occupat ional Health - Occupational Stress [...] place to sleep or slept in a [place] (including now)? No 03/05/2023 Sexually Active Control [...] BY MOUTH ONCE A DAY 30 Tablet 01/21/2024 documented in this encounter Plan of Treatment Upcoming Encounters Date Type Department Care Team (Late st Contact Info) Description 05/07/2024 1:00 PM EST Office Visit [facility] [address] [place] [phone] Juana Bailey APRN [address] [address] [place] [address] documented as of this encounter Goals Goal [...] ONE TABLET BY MOUTH ONCE A DAY 12/24/2023 01/21/2024 documented as of this encounter Care Teams Laminator Printed Circuit Boards Relationship Specialty Start Date End Date Juana Bailey APRN [address] [place], [place] [address] PCP - General Nurse Practitioner-Family 08/29/22 documented as of this encounter
--- OUTSIDE RECORDS SUMMARY | 2024-02-27 14:01 | XMS_ITS | Encounter Summary ---
Author Organization [place] [address] Care Team Providers Care Bread Wrapping Machine Feeder Name Role Phone Juana Bailey APRN Primary Care Provider [phone] Reason for Referral * Medication Prior Authorization - Closed Specialty Diagnoses / Procedures Referred By Contac t Referred To Contact Diagnoses Type 2 diabetes mellitus with hyperlipidemia (HCC) Juana Bailey APRN [address] [place] [address] Phone: tel: fax: Referral ID Status Reason Start Date Expiration Date Visits Re quested Visits Authorized [id number] Closed 1 1 Reason for Visit * Reason Onset Date Comments Refill 01/17/2024 Disp Refills Sta rt End semaglutide (OZEMPIC) 2 mg/dose (8 mg/3 mL) SubQ Pen Injector 3 mL 11 06/24/2023 - Sig - Route: Subcutaneous (Inject under the skin) 2 mg once a week. - Subcutaneous Other 01/17/2024 pt still not abl e to get this filled- pt not sure if it's a PA issue or what? Pharmacy hasn't rec'd this. Please advise of issue Patient Returning Call 01/17/2024 PA Encounter Details Date Type Department Care Team (Late st Contact Info) Description 01/17/2024 Telephone [facility] [place] [address] [place] [phone] Juana Bailey APRN [address] [place] [address] Refill ( Disp Refills Start End /semaglutide [...] advise of issue); Patient Returning Call (PA) Social History Tobacco Use Types Packs/Day Years [...] Date Recorded PHQ-2 Total Score 0 10/24/2023 [facility] of Occupat ional [facility] - Occupational Stress Questionnaire Answer Date [...] place to sleep or slept in a mcc (including now)? No 03/05/2023 Sexually Active Control [...] Refills Last Filled Start Date End Date semaglutide (OZEMPIC) 2 mg/dose (8 mg/3 mL) SubQ Pen InjectorIndications :Type 2 diabetes mellitus with hyperlipidemia (HCC) Subcutaneous (Inject under the skin) 2 mg once a week. 3 mL 11 documented in this encounter Miscellaneous Notes * Telephone Encounter - Teresa Forrester RMA - 01/22/2024 12:36 PM EDT Select the most appropriate reason for this telephone message: Patient Returning Call Reason for call: Pt is calling on status of PA Information relayed to patient: Called and left detailed message on VM advising that this is needing a PA and that it might take a few days to get an answer back on this. Patient has additional questions: She stated that the insurance is saying that they have not received the PA Further follow-up needed? yes Additional Information: Here is a number for the insurance [phone]. She stated that they did not give a reference number * Telephone Encounter - Noelle Yeh RMA - 01/20/2024 3:37 PM EDT Called and left detailed message on VM advising that this is needing a PA and that it might take a few days to get an answer back on this. * Telephone Encounter - Heide Young - 01/20/2024 2:36 PM EDT Select the most appropriate reason for this telephone message: Other Who is calling (name & relationship to patient if not the patient): Patient What is needed OR why are they calling: patient called to f/u on this medication. Pt has spoken with the pharmacy multiple times and they're saying they her ins hasn't approved this yet. Pt isn't sure if this means she needs a PA on this or not? Please advise status of this When is this needed by: dona- pt is totally out of this. She typically does her injection on Where does this information need to go: PCP Additional information: Please call pt right away so she knows what to do. * Telephone Encounter - Hafsa Phillips MA - 01/20/2024 10:32 AM EDT LMTRC. This medication was sent to the pharmacy on 01/16 * Telephone Encounter - Melina Mart - 01/20/2024 10:09 AM EDT Select the most appropriate reason for this telephone message: Other Who is calling (name & relationship to patient if not the patient): Patient What is needed OR why are they calling: asking for a call back, states she is having trouble getting this filled, asking how much longer it could take? When is this needed by: dona Where does this information need to go: pcp Additional information: N/A * Telephone Encounter - Waldemar Sharma - 01/17/2024 1:16 PM EDT Select the most appropriate reason for this telephone message: Medication Refill Who is requesting the refill: Patient Medication(s)Name/Dosage/Frequency: Disp Refills Start End semaglutide (OZEMPIC) 2 mg/dose (8 mg/3 mL) SubQ Pen Injector 3 mL 11 06/24/2023 -- Sig - Route: Subcutaneous (Inject under the skin) 2 mg once a week. - Subcutaneous Did patient contact the pharmacy first: Yes pharmacy said she has no refills How many days left on hand: needs it by 01/22 Future appt date w/ prescribing provider: none Pharmacy & Location: [facility] Additional Information: N/A documented in this encounter Plan of Treatment Upcoming Encounters Date Type Department Care Team (Late st Contact Info) Description 05/07/2024 1:00 PM EST [facility] [address] [place], [place] [phone] Juana Bailey APRN [address] [facility] [place] [address] documented as of this encounter Goals Goal [...] as of this encounter Visit Diagnoses Diagnosis Type 2 diabetes mellitus with hyperlipidemia (HCC) documented in this encounter Discontinued Medications Medication Sig Discontinue Reason Start Date End Da te semaglutide (OZEMPIC) 2 mg/dose (8 mg/3 mL) SubQ Pen InjectorIndications:Typ e 2 diabetes mellitus with hyperlipidemia (HCC) Subcutaneous (Inject under the skin) 2 mg once a week. Reorder 06/24/2023 01/17/2024 documented as of this encounter Care Teams Bread Wrapping Machine Feeder Relationship Specialty Start Date End Date Juana Bailey APRN [address] [place] [address] [place] [address] PCP - General Nurse Practitioner-Family 08/29/22 documented as of this encounter
--- OUTSIDE RECORDS SUMMARY | 2024-02-27 14:01 | XMS_ITS | Encounter Summary ---
Author Organization [place] [address] Care Team Providers Care Senior Python Developer Name Role Phone Juana Bailey APRN Primary Care Provider [phone] Reason for Visit * Reason Comments Medication Refill Encounter Details Date Type Department Care Team (Late st Contact Info) Description 02/03/2024 Refill [facility] [address] [place] [address] Juana Bailey APRN [address] [facility] [place] [address] Medication Refill Social History Tobacco Use Types Packs/Day Years Used Date Smoking Tobacco: Never Smokeless Tobacco: Current Snuff Alcohol Use Standard Drinks/Week Comments Not Currently 0 (1 standard drink = 0.6 oz pur e alcohol) Overall Financial Resource Strain ([facility]) Answe r Date Recorded How hard is it for you to pa y for the very basics like food, housing, medical care, and heating? Not very hard 03/05/2023 PHQ-2 Answer Date Recorded PHQ-2 Total Score 0 10/24/2023 [facility] [place] of Occupat ional Health - Occupational Stress [...] place to sleep or slept in a long-term (including now)? No 03/05/2023 Sexually Active Control [...] Refills Last Filled Start Date End Date traZODone (DESYREL) 50 mg Oral TabletIndications:I nsomnia, persistent TAKE ONE TABLET BY MOUTH EVERY NIGHT 100 Tablet 02/05/2024 documented in this encounter Miscellaneous Notes * Telephone Encounter - Maricruz Quiroz CPhT - 02/05/2024 1:22 PM EDT Trazodone Future Visit: 05/07/24 Last Assessed Visit: n/a Follow-Up Date: n/a All protocols passed. Refills approved and sent to requesting pharmacy. Routed to [facility] if applicable. documented in this encounter Plan of Treatment Upcoming Encounters Date Type Department Care Team (Late st Contact Info) Description 05/07/2024 1:00 PM EST Office Visit [facility] [address] [place] [phone] Juana Bailey APRN [address] [place] [address] documented as of this encounter Goals Goal [...] HEMOGLOBIN A1C < 7.0 Result Component 6.1( 4 9:55 AM EDT) No Juana Bailey APRN documented as of this encounter Visit Diagnoses Diagnosis Insomnia, persistent Persistent disorder of initiating or maintaining sleep documented in this encounter Discontinued Medications Medication Sig Discontinue Reason Start Date End Da te traZODone (DESYREL) 50 mg Oral TabletIndications:Insomn ia, persistent TAKE ONE TABLET BY MOUTH EVERY NIGHT 08/05/2023 02/05/2024 documented as of this encounter Care Teams Senior Python Developer Relationship Specialty Start Date End Date Juana Bailey APRN [address] [place], [place] [address] PCP - General Nurse Practitioner-Family 08/29/22 documented as of this encounter
--- OUTSIDE RECORDS SUMMARY | 2024-02-27 14:01 | XMS_ITS | Encounter Summary ---
Author Organization [place] [address] Care Team Providers Care Python Developer Name Role Phone Juana Bailey APRN Primary Care Provider [phone] Reason for Visit * Reason Comments Medication Refill Encounter Details Date Type Department Care Team (Late st Contact Info) Description 11/18/2023 Refill SEP Nati [address] [place] [address] Juana Bailey APRN [address] [place] [address] Medication Refill Social History Tobacco Use Types Packs/Day Years Used Date Smoking Tobacco: Never Smokeless Tobacco: Current Snuff Alcohol Use Standard Drinks/Week Comments Not Currently 0 (1 standard drink = 0.6 oz pur e alcohol) Overall Financial Resource Strain ([facility]) Answe r Date Recorded How hard is it for you to pa y for the very basics like food, housing, medical care, and heating? Not very hard 03/05/2023 PHQ-2 Answer Date Recorded PHQ-2 Total Score 0 10/24/2023 [facility] [place] of Occupat ional Health - Occupational Stress [...] place to sleep or slept in a fci (including now)? No 03/05/2023 Sexually Active Control [...] Refills Last Filled Start Date End Date omeprazole (PRILOSEC) 20 mg Oral Capsule, Delayed Release(E.C.) TAKE 1 CAPSULE BY MOUTH ONCE A DAY 90 Capsule 11/20/2023 loratadine (CLARITIN) 10 mg Oral Tablet TAKE ONE TABLET BY MOUTH ONCE A DAY 30 Tablet 11/20/2023 documented in this encounter Miscellaneous Notes * Telephone Encounter - Marni Santiago CPhT - 11/20/2023 7:23 AM EDT Omeprazole Medication Refill Protocol passed. [facility] Action: Approved 90-day supply with sufficient refills to cover patient until scheduled appointment on 12/24/23, and not exceeding 90 days past that date. Loratidine Medication Refill Protocol not available for this medication. Routed to office staff. documented in this encounter Plan of Treatment Upcoming Encounters Date Type Department Care Team (Late st Contact Info) Description 05/07/2024 1:00 PM EST Office Visit ASHELY PATEL [address] [place] [phone] Juana Bailey APRN [address] [place] [address] documented as of this encounter Goals Goal [...] Discontinue Reason Start Date End Da te omeprazole (PRILOSEC) 20 mg Oral Capsule, Delayed Release(E.C.) TAKE 1 CAPSULE BY MOUTH ONCE A DAY 11/21/2022 11/20/2023 loratadine (CLARITIN) 10 mg Oral Tablet TAKE ONE TABLET BY MOUTH ONCE A DAY 10/08/2023 11/20/2023 documented as of this encounter Care Teams Python Developer Relationship Specialty Start Date End Date Juana Bailey APRN [address] [place] [address] PCP - General Nurse Practitioner-Family 08/29/22 documented as of this encounter
--- OUTSIDE RECORDS SUMMARY | 2024-02-27 14:01 | XMS_ITS | Encounter Summary ---
Author Organization [place] [address] Care Team Providers Care Senior Credit Officer Name Role Phone Juana Bailey APRN Primary Care Provider [phone] Reason for Visit * Reason Onset Date Comments Other 12/26/2023 Was fax received Encounter Details Date Type Department Care Team (Late st Contact Info) Description 12/26/2023 Telephone ASHELY [place] [address] [place] [address] Juana Bailey APRN [address] [place] [address] Other (Was fax received ) Social History Tobacco Use Types Packs/Day Years [...] Date Recorded PHQ-2 Total Score 0 10/24/2023 [facility] [place] of Occupat ional Health - Occupational Stress [...] place to sleep or slept in a intermediate (including now)? No 03/05/2023 Sexually Active Control [...] 10/24/2023 9:27 AM EDT Alden Crowell CCMA documented as of this encounter Mental Status * Because of a physical, mental or emotional condition, does this person have serious difficulty concentrating, remembering or making decisions? Answer Entry Date Author No 10/24/2023 9:27 AM EDT Alden Crowell CCMA documented in this encounter Miscellaneous Notes * Telephone Encounter - Sarah Crowell CCMA - 12/31/2023 10:28 AM EDT Letter faxed * Telephone Encounter - Nate Negron CCMA - 12/30/2023 11:03 AM EDT Select the most appropriate reason for this telephone message: Other Who is calling (name & relationship to patient if not the patient): home care delivered. What is needed OR why are they calling: They are calling again about the same thing. They said theynever got a call back from the message they left on 12/25. They said they faxed the form to [phone] on 12/02 and again on 12/25. They would like to know if it was received. When is this needed by: today Where does this information need to go: Juana Bailey Additional information: N/A * Telephone Encounter - Sarah Crowell CCMA - 12/26/2023 2:42 PM EDT I have not seen anything * Telephone Encounter - Hafsa Phillips MA - 12/26/2023 2:39 PM EDT Have you seen? * Telephone Encounter - Nate Negron CCMA - 12/26/2023 2:37 PM EDT Select the most appropriate reason for this telephone message: Other Who is calling (name & relationship to patient if not the patient): home care delivered. What is needed OR why are they calling: They want to know if the fax they sent to [phone] on 12/02 for incontinence supplies was received. When is this needed by: today Where does this information need to go: Juana Bailey Additional information: N/A documented in this encounter Plan of Treatment Upcoming Encounters Date Type Department Care Team (Late st Contact Info) Description 05/07/2024 1:00 PM EST Office Visit ASHELY PATEL [address] [place] [phone] Juana Bailey APRN [address] [place] [address] documented as of this encounter Goals Goal [...] on filedocumented in this encounter Care Teams Senior Credit Officer Relationship Specialty Start Date End Date Juana Bailey APRN [address] [place] [address] PCP - General Nurse Practitioner-Family 08/29/22 documented as of this encounter
--- OUTSIDE RECORDS SUMMARY | 2024-02-27 14:01 | XMS_ITS | Encounter Summary ---
Author Organization [place] [address] Care Team Providers Care Medical Device Engineer Name Role Phone Juana Bailey APRN Primary Care Provider [phone] Reason for Visit * Reason Comments Medication Refill Encounter Details Date Type Department Care Team (Late st Contact Info) Description 10/31/2023 Refill SEP Nati [address] [place] [phone] Juana Bailey APRN [address] [place] [address] Medication Refill Social History Tobacco Use Types Packs/Day Years Used Date Smoking Tobacco: Never Smokeless Tobacco: Current Snuff Alcohol Use Standard Drinks/Week Comments Not Currently 0 (1 standard drink = 0.6 oz pur e alcohol) Overall Financial Resource Strain ([facility]) Answe r Date Recorded How hard is it for you to pa y for the very basics like food, housing, medical care, and heating? Not very hard 03/05/2023 PHQ-2 Answer Date Recorded PHQ-2 Total Score 0 10/24/2023 [facility] [place] of Occupat ional Health - Occupational Stress [...] place to sleep or slept in a custodial (including now)? No 03/05/2023 Sexually Active Control [...] Refills Last Filled Start Date End Date flecainide (TAMBOCOR) 50 mg Oral Tablet TAKE ONE TABLET BY MOUTH 2 TIMES A DAY 60 Tablet 10/31/2023 12/04/2023 documented in this encounter Plan of Treatment Upcoming Encounters Date Type Department Care Team (Late st Contact Info) Description 05/07/2024 1:00 PM EST Office Visit ASHELY PATEL [address] [place] [phone] Juana Bailey APRN [address] [facility] [place] [address] documented as of this encounter Goals Goal [...] Discontinue Reason Start Date End Da te flecainide (TAMBOCOR) 50 mg Oral Tablet TAKE ONE TABLET BY MOUTH 2 TIMES A DAY 09/26/202310/31/2023 documented as of this encounter Care Teams Medical Device Engineer Relationship Specialty Start Date End Date Juana Bailey APRN [address] [place] [address] PCP - General Nurse Practitioner-Family 08/29/22 documented as of this encounter
--- OUTSIDE RECORDS SUMMARY | 2024-02-27 14:01 | XMS_ITS | Encounter Summary ---
Author Organization [place] [address] Care Team Providers Care Pelletizer Name Role Phone Juana Bailey APRN Primary Care Provider [phone] Encounter Details Date Type Department Care Team (Late st Contact Info) Description 02/12/2024 Orders Only SEP Nati [address] [place] [phone] Juana Bailey APRN [address] [place] [address] Social History Tobacco Use Types Packs/Day Years Used Date Smoking Tobacco: Never Smokeless Tobacco: Current Snuff Alcohol Use Standard Drinks/Week Comments Not Currently 0 (1 standard drink = 0.6 oz pur e alcohol) Overall Financial Resource Strain ([facility]) Answe r Date Recorded How hard is it for you to pa y for the very basics like food, housing, medical care, and heating? Not very hard 03/05/2023 PHQ-2 Answer Date Recorded PHQ-2 Total Score 0 10/24/2023 [facility] [place] of Occupat ional Health - Occupational Stress [...] on file Legal Sex Female 11:17 AM EDWendi Gender Identity Not on file Sexual Orientation [...] Alden Crowell CCMA documented in this encounter Plan of Treatment Upcoming Encounters Date Type Department Care Team (Late st Contact Info) Description 05/07/2024 1:00 PM EST Office Visit ASHELY PATEL [address] [place] [phone] Juana Bailey APRN [address] [place] [address] documented as of this encounter Goals Goal [...] on filedocumented in this encounter Care Teams Pelletizer Relationship Specialty Start Date End Date Juana Bailey APRN [address] [place] [address] PCP - General Nurse Practitioner-Family 08/29/22 documented as of this encounter
--- OUTSIDE RECORDS SUMMARY | 2024-02-27 14:01 | XMS_ITS | Encounter Summary ---
Author Organization [place] [address] Care Team Providers Care Environmental Projects Advisor Name Role Phone Juana Bailey APRN Primary Care Provider [phone] Reason for Referral * Mammography (Routine) - Pending Review Specialty Diagnoses / Procedures Referred By Contperfecto t Referred To Contact Radiology Diagnoses Encounter for screening 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 cancer Procedures MM MAMMO DIGITAL MARCO SCREEN BILAT Juana Bailey APRN [address] [place] [address] Phone: tel: fax: Referral ID Status Reason Start Date Expiration Date V isits Requested Visits Authorized [id number] Pending Review 12/24/2023 12/24/2025 1 1 Reason for Visit * Reason Comments Follow-up Encounter Details Date Type Department Care Team (Latest Contact Info) Description 12/24/2023 9:00 AM EDT Office Visit ASHELY PATEL [address] [place] [phone] Juana Bailey APRN [address] [place] [address] Type 2 diabetes mellitus with hyperlipidemia (HCC) (Primary Dx); Essential hypertension; Morbid obesity (HCC); Dyslipidemia; Encounter for screening 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 cancer; Cervical radiculopathy Social History Tobacco Use Types Packs/Day Years [...] Date Recorded PHQ-2 Total Score 0 10/24/2023 [facility] - Occupational Stress Questionnaire Answer Date Recorded [...] Sign Reading Time Taken Comments Blood Pressure 120/78 12/24/2023 8:59 AM EDT Pulse 86 12/24/2023 8:59 AM EDT Temperature 36.6 ??C (97.9 ??F) 12/24/2023 8:59 AM ED T Respiratory Rate 18 12/24/2023 8:59 AM EDT Oxygen Saturation 96% 12/24/2023 8:59 AM EDT Inhaled Oxygen Concentration - - Weight 100.7 kg (222 lb) 12/24/2023 8:59 AM EDT Height - - Body Mass Index 36.94 10/24/2023 9:24 AM EDT documented in this [...] Progress Notes * Juana Bailey APRN - 12/24/2023 9:00 AM EDT Assessment Diagnoses and all orders for this visit: Type 2 diabetes mellitus with hyperlipidemia (HCC) (Chronic) Overview: Lab Results Component Value Date HGBA1C 6.1 (H) 10/24/2023 HGBA1C 6.3 (H) 06/21/2023 HGBA1C 6.9 (H) 03/21/2023 Metformin intolerance. on farxiga for dual mgmt of CKD and ozempic. Statin intolerance. On zetia ACEi/ARB held d/t CKD Orders: - IRIS DIABETIC RETINOPATHY EXAM Essential hypertension Overview: BP Readings from Last 3 Encounters: 12/24/23 120/78 10/24/23 104/72 06/26/23 132/80 Well controlled on HCTZ Morbid obesity (HCC) Overview: Wt Readings from Last 3 Encounters: 12/24/23 222 lb (100.7 kg) 10/24/23 232 lb (105.2 kg) 06/26/23 248 lb 12.8 oz (112.9 kg) Starting wt at 303 Sig improvement on ozempic. Dyslipidemia Overview: Myalgia associated with statin On zetia Encounter for screening 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 cancer - MM MAMMO DIGITAL MARCO SCREEN BILAT; Future Cervical radiculopathy - methylPREDNISolone acetate (DEPO-Medrol) injection 80 mg - betamethasone acet-betamethasone sodium phos (CELESTONE) injection 6 mg Progress Note: Vitals: 12/24/23 0859 BP: 120/78 Pulse: 86 Resp: 18 Temp: 97.9 ??F (36.6 ??C) TempSrc: Forehead SpO2: 96% Weight: 222 lb (100.7 kg) Body mass index is 36.94 kg/m??. SUBJECTIVE: Chief Complaint Patient presents with Follow-up HPI: Diabetes: Jane following up today for diabetes. Current symptoms/problems include none. Current monitoring regimen: none Home blood sugar records: n/a Any episodes of hypoglycemia? no On insulin? No Weight trend: Body mass index is 36.94 kg/m??. Wt Readings from Last 3 Encounters: 12/24/23 222 lb (100.7 kg) 10/24/23 232 lb (105.2 kg) 06/26/23 248 lb 12.8 oz (112.9 kg) A1c trend: Lab Results Component Value Date HGBA1C 6.1 (H) 10/24/2023 HGBA1C 6.3 (H) 06/21/2023 HGBA1C 6.9 (H) 03/21/2023 Renal trend: No results found for: GFRAFRAM No results found for: GFRNONAFRAM Lab Results Component Value Date GFRCKDEPI 87 10/24/2023 GFRCKDEPI 81 06/21/2023 GFRCKDEPI 65 03/21/2023 Lipid trend: Lab Results Component Value Date LDLCALC 75 10/24/2023 Hypertension: Home reporting of hypertension was reviewed at time of visit. Jane denies any episodes of dizziness, lightheadedness, presyncope, syncope, headache, or chest pain. Jane does not report any new symptoms of possible hypertension sequelae. The patient reports that she is not having significant issues or side effects of current medications/treatments. Hyperlipidemia: Last Lipid and liver panel has been reviewed. Current cholesterol goals discussed with patient. Thepatient is on a lipid lowering agent. The patient currently is not on a statin. She has statin intolerance. On zetia. No complaints of side effects from medication. Acute concerns Acute on chronic neck pain radiating into right shoulder. Certain position changes exacerbate pain.No paraesthesia. Review of Systems Constitutional: Negative for fever. HENT: Negative for congestion. Respiratory: Negative for cough, shortness of breath and wheezing. Cardiovascular: Negative for chest pain, palpitations and leg swelling. Musculoskeletal: Positive for arthralgias, back pain, myalgias and neck pain. Skin: Negative for rash and wound. OBJECTIVE: Physical Exam Constitutional: Appearance: She is obese. Cardiovascular: Rate and Rhythm: Normal rate and regular rhythm. Heart sounds: Normal heart sounds. Pulmonary: Effort: Pulmonary effort is normal. Breath sounds: Normal breath sounds. Musculoskeletal: Comments: Cervical thoracic kyphosis Tenderness to right cervical Neurological: Mental Status: She is alert and oriented to person, place, and time. Psychiatric: Mood and Affect: Mood normal. Thought Content: Thought content normal. * Jane [place] [facility] - 12/24/2023 9:00 AM EDT I, Jane Ama [place], CCMA, administered the Iris diabetic retinopathy screening without difficulty. Initial evaluation involved looking at patient eyes to confirm that eyes do not appear red, angry, and/or the cornea appears hazy. Patient was able to adequately dilate pupils naturally for adequate images to be obtained. No dilation drops were necessary. * Tabitha Sharma, PETER - 12/24/2023 9:00 AM EDT Laboratory results received, patient notified by: [employer] Message. documented in this encounter Miscellaneous Notes * Patient Instructions - Juana Bailey APRN - 12/24/2023 9:00 AM EDT Can schedule for the mammogram van here at office, or at the hospital or call [place] and scheduleto complete Mammogram there documented in this encounter Plan of Treatment Upcoming Encounters Date Type Department Care Team (Late st Contact Info) Description 05/07/2024 1:00 PM EST Office Visit ASHELY PATEL [address] [place] [phone] Juana Bailey APRN [address] [place] [address] Scheduled Orders Name Type Priority Associated Diagnoses Orde r Schedule MM MAMMO DIGITAL MARCO SCREEN BILAT Imaging Routine Encounter for screening 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 cancer 1 Occurrences starting 12/24/2023 until 12/23/2025 documented as of this encounter Goals Goal Patient Goal Type Associated Problems Recent Progress Patient-Stated? Author Blood Pressure < 140/90 Blood Pressure 112/70(2023 8:24 AM EDT) No Juana Bailey APRN Maintain a healthy diet, exercise regularly and maintain an ideal body weight General No Noelle Yeh, RMA BMI (Calculated) < 30 General 38.7(10/24/19 24 9:24 AM EDT) No [place], Juana, ATTENDANT CAMPGROUND Stay Tobacco Free Lifestyle No [place], Juana, ATTENDANT [employer] HEMOGLOBIN A1C < 7.0 Result Component 6.1( 9:55 AM EDT) No [place], Juana, ATTENDANT [employer] documented as of this encounter Procedures Procedure Name Priority Date/Time Associated Diagnosis Comments SCANNED LABS 02/04/2024 2:56 PM EDT IRIS DIABETIC RETINOPATHY EXAM Routine 12/24/2023 9:35 AM EDT Type 2 diabetes mellitus with hyperlipidemia (HCC) documented in this encounter Results * SCANNED LABS (02/04/2024 2:56 PM EDT) 02/04/2024 2:56 PM EDT us Unknown Provider HEMATOLOGY ORDERABLES Final Res ult * IRIS DIABETIC RETINOPATHY EXAM (12/24/2023 9:35 AM EDT) Retinopathy Exam Severity NORMAL [facility] Right Diabetic Retinopathy None [facility] Right Macular Edema None [facility] Right Other Retina None [facility] Right Eye Image Quality Gradable Image [facility] Left Diabetic Retinopathy None [facility] Left Macular Edema None [facility] Left Other Retina None SE LAB Left Eye Image Quality Gradable Image [facility] 12/24/2023 9:35 AM EDT 12/24/2023 9:35 AM EDT Impressions [facility] - 12/24/2023 9:40 AM EDT Retinal Study Result for JANE FARIAS, a 53 y/o, F (: 1970, ) presented to [facility] on 12-24-2023 for a [...] signed by Fitz Gusman MD, , Taxonomy: [id number] on 12-24-2023 13:40 UT. NOTE: ??Any pathology noted on this diabetic retinal evaluation should be confirmed by an appropriate ophthalmic examination. Juana Bailey APRN OPHTHALMOLOGY SERVICES ORDE KVNG Final Result [facility] [address] [place] [address] documented in this encounter Visit Diagnoses Diagnosis Type 2 diabetes mellitus with hyperlipidemia (HCC)- Primary Essential hypertension Unspecified essential hypertension Morbid obesity (HCC) Morbid obesity Dyslipidemia Other and unspecified hyperlipidemia Encounter for screening 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 cancer Cervical radiculopathy Brachial neuritis or radiculitis nos documented in this encounter Administered Medications Inactive Administered Medications - up to 1 most recent administrations Medication Order MAR Action Action Date Dose Rate Site betamethasone acet-betamethasone sodium phos (CELESTONE) injection 6 mg 6 mg, Intramuscular, ONCE, 1 dose, On Sat12/24/23 at 0945, Do not refrigerate, Dx: 1. Cervical radiculopathyIndications:Cer vical radiculopathy Given 12/24/2023 9:35 AM EDT 6 mg Right Deltoid methylPREDNISolone acetate (DEPO-Medrol) injection 80 mg 80 mg, Intramuscular, ONCE, 1 dose, On Sat12/24/23 at 0945, Dx: 1. Cervical radiculopathyIndications:Cer vical radiculopathy Given 12/24/2023 9:35 AM EDT 80 mg Right Deltoid documented in this encounter Care Teams Environmental Projects Advisor Relationship Specialty Start Date End Date Juana Bailey [place] [address] [place] [address] PCP - General Nurse Practitioner-Family 08/29/22 documented as of this encounter
--- OUTSIDE RECORDS SUMMARY | 2024-02-27 14:01 | XMS_ITS | Encounter Summary ---
Author Organization [place] [address] Care Team Providers Care Chief Clerk Shelter Name Role Phone Juana Bailey APRN Primary Care Provider [phone] Reason for Visit * Reason Comments Medication Refill Encounter Details Date Type Department Care Team (Late st Contact Info) Description 11/06/2023 Refill SEP Nati [address] [place] [phone] Juana Bailey APRN [address] [place] [address] Medication Refill Social History Tobacco Use Types Packs/Day Years Used Date Smoking Tobacco: Never Smokeless Tobacco: Current Snuff Alcohol Use Standard Drinks/Week Comments Not Currently 0 (1 standard drink = 0.6 oz pur e alcohol) Overall Financial Resource Strain ([facility]) [place] r Date Recorded How hard is it for you to pa y for the very basics like food, housing, medical care, and heating? Not very hard 03/05/2023 PHQ-2 Answer Date Recorded PHQ-2 Total Score 0 10/24/2023 [facility] [place] of Occupat ional Health - Occupational Stress [...] Refills Last Filled Start Date End Date ergocalciferol (DRISDOL) 1,250 mcg (50,000 unit) Oral Capsule TAKE 1 CAPSULE BY MOUTH ONE TIME PER WEEK 4 Capsule 2 11/07/2023 4 documented in this encounter Plan of Treatment Upcoming Encounters Date Type Department Care Team (Late st Contact Info) Description 05/07/2024 1:00 PM EST Office Visit ASHELY PATEL [address] [place] [phone] Juana Bailey APRN [address] [place] [place] [address] documented as of this encounter Goals Goal [...] CAPSULE BY MOUTH ONE TIME PER WEEK 10/08/2023 11/07/2023 documented as of this encounter Care Teams Chief Clerk Shelter Relationship Specialty Start Date End Date Juana Bailey APRN [address] [place] [address] PCP - General Nurse Practitioner-Family 08/29/22 documented as of this encounter
--- OUTSIDE RECORDS SUMMARY | 2024-02-27 14:01 | XMS_ITS | Encounter Summary ---
Author Organization [place] [address] Care Team Providers Care Entry Level Mechanical Engineer Name Role Phone Juana Bailey APRN Primary Care Provider [phone] Reason for Visit * Reason Comments Medication Refill Encounter Details Date Type Department Care Team (Late st Contact Info) Description 10/21/2023 Refill [facility]P [facility] [address] [place] [address] Juana Bailey APRN [address] [place] [address] Medication Refill Social History Tobacco Use Types Packs/Day Years Used Date Smoking Tobacco: Never Smokeless Tobacco: Current Snuff Alcohol Use Standard Drinks/Week Comments Not Currently 0 (1 standard drink = 0.6 oz pur e alcohol) Overall Financial Resource Strain ([facility]) Answe r Date Recorded How hard is it for you to pa y for the very basics like food, housing, medical care, and heating? Not very hard 03/05/2023 PHQ-2 Answer Date Recorded PHQ-2 Total Score 0 11/07/2022 [facility] [place] of Occupat ional Health - Occupational Stress [...] of Assessment Author No 11/07/2022 2:28 PM EDT Alden Crowell CCMA documented as of this encounter Mental Status * Because of a physical, mental or emotional condition, does this person have serious difficulty concentrating, remembering or making decisions? Answer Entry Date Author No 11/07/2022 2:28 PM EDT Alden Crowell CCMA documented in this encounter Ordered Prescriptions Prescription Sig Dispense Quantity Refills Last Filled Start Date End Date dapagliflozin propanediol (FARXIGA) 10 mg Oral TabletIndications:St age 3b chronic kidney disease (HCC),Type 2 diabetes mellitus with hyperlipidemia (HCC),ASHD (arteriosclerotic heart disease) TAKE ONE TABLET BY MOUTH ONCE A DAY 90 Tablet 10/22/2023 documented in this encounter Miscellaneous Notes * Telephone Encounter - Maricruz Quiroz CPhT - 10/22/2023 4:14 PM EDT Kylexiga 10- Medication Refill Protocol passed. Sylvain Action: Approved 90 day supply with sufficient refills to noted follow-up date by provider or protocol if no follow-up date noted, not to exceed 90 days past that date. documented in this encounter Plan of Treatment Upcoming Encounters Date Type Department Care Team (Late st Contact Info) Description 05/07/2024 1:00 PM EST Office Visit [facility] [address] [phone] Juana Bailey APRN [address] [address] documented as of this encounter Goals Goal [...] Coronary atherosclerosis of unspecified type of vessel, navajo or graft documented in this encounter Discontinued Medications Medication Sig Discontinue Reason Start Date End Da te FARXIGA 10 mg Oral TabletIndications:Stage 3b chronic kidney disease (HCC),Type 2 diabetes mellitus with hyperlipidemia (HCC),ASHD (arteriosclerotic heart disease) TAKE ONE TABLET BY MOUTH ONCE A DAY 09/10/2023 10/22/2023 documented as of this encounter Care Teams Entry Level Mechanical Engineer Relationship Specialty Start Date End Date Juana Bailey APRN [address] [place], [place] [address] PCP - General Nurse Practitioner-Family 08/29/22 documented as of this encounter
--- OUTSIDE RECORDS SUMMARY | 2024-02-27 14:01 | XMS_ITS | Encounter Summary ---
Author Organization [place] [address] Care Team Providers Care Visual Associate Name Role Phone Juana Bailey APRN Primary Care Provider [phone] Reason for Visit * Reason Onset Date Comments Other 09/24/2023 Incoming fax for supplies Encounter Details Date Type Department Care Team (Late Contact Info) Description 09/24/2023 Telephone [facility] [place] [address] [place] [phone] Juana Bailey APRN [address] [place] [address] Other (Incoming fax for supplies ) Social History Tobacco Use Types Packs/Day [...] Date Recorded PHQ-2 Total Score 0 10/24/2023 [facility] [place] of Occupat ional Health - Occupational Stress [...] place to sleep or slept in a skilled nursing (including now)? No 03/05/2023 Sexually Active Control [...] of Assessment Author No 11/07/2022 2:28 PM EDAlden Al CCMA * Does this person have serious difficulty walking or climbing stairs? Answer Date of Assessment Author No 11/07/2022 2:28 PM Alden Polanco CCMA * Does this person have difficulty dressing or bathing? Answer Date of Assessment Author No 11/07/2022 2:28 PM EDT Alden Crowell CCMA * Because of [...] encounter Miscellaneous Notes * Telephone Encounter - Hafsa Phillips MA - 10/10/2023 2:10 PM EDT Looks like this was faxed on 10/02, I will refax. * Telephone Encounter - Kelby Bridges - 10/10/2023 1:53 PM EDT Select the most appropriate reason for this telephone message: Other Who is calling (name & relationship to patient if not the patient): Home Care Delivered What is needed OR why are they calling: Called back to check on the status of this request. Unable to advise rep. When is this needed by: when available Where does this information need to go: [facility] Additional information: n/a * Telephone Encounter - Sarah Crowell CCMA - 09/25/2023 7:45 AM EDT This was received and will be sent back once completed * Telephone Encounter - Tyrone Major RMA - 09/24/2023 4:56 PM EDT Select the most appropriate reason for this telephone message: Other Who is calling (name & relationship to patient if not the patient): Home care delivered What is needed OR why are they calling: calling to see if you got the fax sent on 09/14 for medical certificate to get incontinence supplies When is this needed by: dona Where does this information need to go: Fax to [phone] Additional information: Will go ahead and fax again now documented in this encounter Plan of Treatment Upcoming Encounters Date Type Department Care Team (Late st Contact Info) Description 05/07/2024 1:00 PM EST Office Visit [facility] [place] [facility] [address] [phone] Juana Bailey APRN [address] [place] [address] documented as of this encounter Goals Goal Patient Goal Type Associated Problems Recent Progress Patient-Stated? Author Blood Pressure < 140/90 Blood Pressure 112/70(2023 8:24 AM EDT) No Juana Bailey APRN Maintain a healthy diet, exercise regularly and maintain an ideal body weight General No Noelle Yeh RMA BMI (Calculated) < 30 General 38.7(10/24/19 24 9:24 AM EDT) No Juana Bailey SOLAR ENERGY INSTALLATION MANAGER Stay Tobacco Free Lifestyle No Juana Bailey APRN HEMOGLOBIN A1C < 7.0 Result Component 6.1( 9:55 AM EDT) No Juana Bailey APRN documented as of this encounter Visit Diagnoses Not on filedocumented in this encounter Care Teams Visual Associate Relationship Specialty Start Date End Date Juana Bailey APRN [address] [place] [address] PCP - General Nurse Practitioner-Family 08/29/22 documented as of this encounter
--- OUTSIDE RECORDS SUMMARY | 2024-02-27 14:01 | XMS_ITS | Encounter Summary ---
Author Organization [place] [address] Care Team Providers Care Field Laboratory Operator Name Role Phone Juana Bailey APRN Primary Care Provider [phone] Reason for Visit * Reason Onset Date Comments Central Order Completion Outreach 11/27/2023 mammogram Encounter Details Date Type Department Care Team (Late st Contact Info) Description 11/27/2023 Patient Outreach SEP [facility] [address] [place], [place] [phone] Juana Bailey APRN [address] [place] [address] Central Order Completion Outreach (mammogram ) Social History Tobacco Use Types Packs/Day [...] Date Recorded PHQ-2 Total Score 0 10/24/2023 [facility] [place] of Occupat ional Health - Occupational Stress [...] place to sleep or slept in a half-way (including now)? No 03/05/2023 Sexually Active Control [...] No 10/24/2023 9:27 AM EDT Alden Crowell CHELSI * Because of a physical, mental or emotional condition, does this person have difficulty doing errands alone such as visiting a doctor's office or shopping? Answer Date of Assessment Author No 10/24/2023 9:27 AM EDT Alden Crowell CHELSI documented as of this encounter Mental Status * Because of a physical, mental or emotional condition, does this person have serious difficulty concentrating, remembering or making decisions? Answer Entry Date Author No 10/24/2023 9:27 AM EDT Alden Crowell CHELSI documented in this encounter Progress Notes * Melina Weinberg RN - 12/03/2023 3:08 PM EDT SEP Order Completion Outcome Tracking Contact Attempt:: Final Mammogram Outcome:: No Answer, Left Voicemail to Return Call at [phone] * Klarissa Melchor, PETER - 11/27/2023 1:06 PM EDT SEP Order Completion Outcome Tracking Contact Attempt:: First Mammogram Outcome:: No Answer, MyChart Message documented in this encounter Plan of Treatment Upcoming Encounters Date Type Department Care Team (Late st Contact Info) Description 05/07/2024 1:00 PM EST Office Visit [facility] [address] [place] [phone] Juana Bailey APRN [address] [place] [address] documented as of this encounter Goals Goal Patient Goal Type Associated Problems Recent Progress Patient-Stated? Author Blood Pressure < 140/90 Blood Pressure 112/70(2023 8:24 AM EDT) No Juana Bailey APRN Maintain a healthy diet, exercise regularly and maintain an ideal body weight General No Noelle Yeh, JUAN BMI (Calculated) < 30 General 38.7(10/24/19 24 9:24 AM EDT) No Juana Bailey APRN Stay Tobacco Free Lifestyle No Juana Bailey APRN HEMOGLOBIN A1C < 7.0 Result Component 6.1( 4 9:55 AM EDT) No Juana Bailey APRN documented as of this encounter Visit Diagnoses Not on filedocumented in this encounter Care Teams Field Laboratory Operator Relationship Specialty Start Date End Date Juana Bailey APRN [address] [place], [place] [address] PCP - General Nurse Practitioner-Family 08/29/22 documented as of this encounter
--- OUTSIDE RECORDS SUMMARY | 2024-02-27 14:01 | XMS_ITS | Encounter Summary ---
Author Organization [place] [address] Care Team Providers Care Paralegal Name Role Phone Juana Bailey APRN Primary Care Provider [phone] Reason for Visit * Reason Onset Date Comments Other 10/25/2023 home care delive red Encounter Details Date Type Department Care Team (Late st Contact Info) Description 10/25/2023 Telephone SEP [facility] [address] [place] [phone] Juana Bailey APRN [address] [place] [address] Other (home care delivered) Social History Tobacco Use Types Packs/Day Years [...] Date Recorded PHQ-2 Total Score 0 10/24/2023 [facility] [place] of Occupat ional Health - Occupational Stress [...] place to sleep or slept in a prison (including now)? No 03/05/2023 Sexually Active Control [...] of Assessment Author No 10/24/2023 9:27 AM Dolores Polanco CCMA * Is the person blind or does he/she have serious difficulty seeing even when wearing glasses? Answer Date of Assessment Author No 10/24/2023 9:27 AM Dolores Polanco CCMA * Does this person have serious difficulty walking or climbing stairs? Answer Date of Assessment Author No 10/24/2023 9:27 AM Dolores Polanco CCMA * Does this person have difficulty dressing or bathing? Answer Date of Assessment Author No 10/24/2023 9:27 AM EDT SocratesDolores bull Russell CCMDolores * Because of a physical, mental or emotional condition, does this person have difficulty doing errands alone such as visiting a doctor's office or shopping? Answer Date of Assessment Author No 10/24/2023 9:27 AM EDT Dolores Crowelldolores Russell CCMDolores documented as of this encounter Mental Status * Because of a physical, mental or emotional condition, does this person have serious difficulty concentrating, remembering or making decisions? Answer Entry Date Author No 10/24/2023 9:27 AM EDT Dolores Crowelldolores Russell CHELSI documented in this encounter Miscellaneous Notes * Telephone Encounter - Rita Sanchez LPN - 12/11/2023 12:34 PM EDT Select the most appropriate reason for this telephone message: Other Who is calling (name & relationship to patient if not the patient): Yasmin from Home care delivered What is needed OR why are they calling: She is requesting a status update of letter needed for incontinence supplies When is this needed by: today Where does this information need to go: PCP Additional information: Please advise. She will be faxing another form. She will call back in 4 days to make sure you received it. * Telephone Encounter - Sarah Crowell CCMA - 11/26/2023 2:49 PM EDT This has been faxed back to them multiple times. It is scanned in pt's media tab multiple times. I refaxed today * Telephone Encounter - Hafsa Phillips MA - 11/26/2023 2:37 PM EDT Have you seen this? * Telephone Encounter - Nate Negron CCMA - 11/26/2023 1:48 PM EDT Select the most appropriate reason for this telephone message: Other Who is calling (name & relationship to patient if not the patient): home care delivered What is needed OR why are they calling: they faxed a request for medical necessity 09/22 and 11/07 and called requesting it on 10/24. When is this needed by: today Where does this information need to go: Juana Bailey Additional information: n/a * Telephone Encounter - Destiney Brandon LPN - 10/25/2023 4:04 PM EDT Select the most appropriate reason for this telephone message: Other Who is calling (name & relationship to patient if not the patient): home care delivered What is needed OR why are they calling: calling to see if office for the letter of medication necessary for pts incontinence supplies. States the letter was originally sent 09/23/23. They are going to refax form When is this needed by: today Where does this information need to go: office Additional information: Please advise,thank you documented in this encounter Plan of Treatment Upcoming Encounters Date Type Department Care Team (Late st Contact Info) Description 05/07/2024 1:00 PM EST Office Visit [facility] [address] [phone] Juana Bailey APRN [address] [place] [address] documented as of this encounter Goals Goal [...] on filedocumented in this encounter Care Teams Paralegal Relationship Specialty Start Date End Date Juana Bailey APRN [address] [place], [place] [address] PCP - General Nurse Practitioner-Family 08/29/22 documented as of this encounter
--- OUTSIDE RECORDS SUMMARY | 2024-02-27 14:01 | XMS_ITS | Encounter Summary ---
Author Organization [place] [address] Care Team Providers Care Soft Water Mechanic Name Role Phone Juana Bailey APRN Primary Care Provider [phone] Reason for Visit * Reason Onset Date Comments Symptoms (Only Use If Pt Pus hes Back On Scheduling A Visit) 02/11/2024 so tired and drained after h aving covid. Patient Returning Call 02/11/2024 Requestin g a call back Encounter Details Date Type Department Care Team (Late st Contact Info) Description 02/11/2024 Telephone SEP [facility] [address] [place] [phone] Juana Bailey APRN [address] [facility] [place] [address] Symptoms (Only Use If Pt Pushes Back On Scheduling A Visit) (so tired and drained after having covid. ); Patient Returning Call (Requesting a call back) Social History Tobacco Use Types Packs/Day Years [...] Date Recorded PHQ-2 Total Score 0 10/24/2023 [facility] [place] of Occupat ional Health - Occupational Stress [...] Refills Last Filled Start Date End Date Cholecalciferol, Vitamin D3, 125 mcg (5,000 unit) Oral Capsule Take 5,000 Units by mouth daily. 30 Capsule 02/13/2024 ascorbic acid, vitamin C, (VITAMIN C) 500 mg Oral Tablet Take 2 Tablets by mouth daily. 60 Tablet 02/13/2024 Zinc Acetate, Oral, 50 mg (zinc) Oral Capsule Take 50 mg by mouth daily. 30 Capsule 02/13/2024 cyanocobalamin 1,000 mcg Oral Tablet Take 1 Tablet by mouth daily. 30 Tablet 02/13/2024 documented in this encounter Miscellaneous Notes * Telephone Encounter - Juana Bailey APRN - 02/12/2024 4:22 PM EDT Ok to send them as prescriptions. * Telephone Encounter - Hafsa Phillips MA - 02/12/2024 4:14 PM EDT Please advise, thank you * Telephone Encounter - Kelby Bridges - 02/12/2024 3:10 PM EDT Select the most appropriate reason for this telephone message: Patient Returning Call Reason for call: PT called back. PT asked if any of these could be prescribed instead of OTC. Information relayed to patient: PT was advised that a message would be sent requesting a call back. Patient has additional questions: Yes, requesting a call back Further follow-up needed? yes Return Method of Communication: Phone Call Additional Information: N/A * Telephone Encounter - Hafsa Phillips MA - 02/12/2024 8:28 AM EDT Patient notified * Telephone Encounter - Juana Bailey APRN - 02/12/2024 7:56 AM EDT I recommend extra vitamins : b12 1000mcg once per day, zinc 50mg once per day, vitamin c 1000mg once per day and vitamin d 5,000 units once per day. Do all this for about 2-4 weeks. All available over the counter. Thanks. * Telephone Encounter - Sarah Crowell CCMA - 02/11/2024 11:05 AM EDT Please advise * Telephone Encounter - Waldemar Sharma - 02/11/2024 10:39 AM EDT Select the most appropriate reason for this telephone message: Symptoms Call Who is reporting the symptoms: Patient What symptom(s) is the patient experiencing: so tired and drained after having covid. How long have symptoms been present: 2 week(s) ago Has the patient been seen for this:Yes by the hospital not pcp Has the patient tried anything to relieve the symptoms and did it help: No If pain, what level on scale 1-10 (10 being the greatest): No Pain Desired Outcome: Advice Pharmacy & Location:[facility] Method of Communication: Phone Call Additional Information: please advise pt. documented in this encounter Plan of Treatment Upcoming Encounters Date Type Department Care Team (Late st Contact Info) Description 05/07/2024 1:00 PM EST Office Visit [facility] [place] [facility] [address] [place] [phone] Juana Bailey APRN [address] [place] [address] documented as of this encounter Goals Goal [...] on filedocumented in this encounter Care Teams Soft Water Mechanic Relationship Specialty Start Date End Date Juana Bailey APRN [address] [place] [address] PCP - General Nurse Practitioner-Family 08/29/22 documented as of this encounter
--- OUTSIDE RECORDS SUMMARY | 2024-02-27 14:01 | XMS_ITS | Encounter Summary ---
Author Organization [place] [address] Care Team Providers Care Beauty Operator Name Role Phone Juana Bailey APRN Primary Care Provider [phone] Reason for Visit * Reason Comments Medication Refill Encounter Details Date Type Department Care Team (Late st Contact Info) Description 12/03/2023 Telephone SEP [facility] [address] [place] [phone] Juana Bailey APRN [address] [facility] [place] [address] Medication Refill Social History Tobacco Use Types [...] Date Recorded PHQ-2 Total Score 0 10/24/2023 [facility] [place] of Occupat ional Health - Occupational Stress [...] place to sleep or slept in a halfway (including now)? No 03/05/2023 Sexually Active Control [...] Refills Last Filled Start Date End Date metoprolol (LOPRESSOR) 50 mg Oral Tablet TAKE ONE TABLET BY MOUTH 2 TIMES A DAY 180 Tablet 5 12/04/2023 flecainide (TAMBOCOR) 50 mg Oral Tablet TAKE ONE TABLET BY MOUTH 2 TIMES A DAY 60 Tablet 5 12/04/2023 documented in this encounter Miscellaneous Notes * Telephone Encounter - Heide Young - 12/04/2023 1:14 PM EDT Select the most appropriate reason for this telephone message: Medication Refill Who is requesting the refill: Patient Medication(s)Name/Dosage/Frequency: Disp Refills Start End metoprolol (LOPRESSOR) 50 mg Oral Tablet 180 Tablet 2 11/21/2022 -- Sig: TAKE ONE TABLET BY MOUTH 2 TIMES A DAY Sent to pharmacy as: metoprolol tartrate 50 mg tablet (LOPRESSOR) Disp Refills Start End flecainide (TAMBOCOR) 50 mg Oral Tablet 60 Tablet 0 10/31/2023 -- Sig: TAKE ONE TABLET BY MOUTH 2 TIMES A DAY Did patient contact the pharmacy first: Yes pharmacy reached out for this as well How many days left on hand: 0 Future appt date w/ prescribing provider: 12/23 Pharmacy & Location: [facility] - [place] [address] [address] - [phone] Additional Notes: meds pended already documented in this encounter Plan of Treatment Upcoming Encounters Date Type Department Care Team (Late st Contact Info) Description 05/07/2024 1:00 PM EST Office Visit [facility] [address] [place], [place] [phone] Juana Bailey APRN [address] [facility] [place] [address] documented as of this encounter Goals Goal [...] Discontinue Reason Start Date End Da te metoprolol (LOPRESSOR) 50 mg Oral Tablet TAKE ONE TABLET BY MOUTH 2 TIMES A DAY 11/21/2022 12/04/2023 flecainide (TAMBOCOR) 50 mg Oral Tablet TAKE ONE TABLET BY MOUTH 2 TIMES A DAY 10/31/2023 12/04/2023 documented as of this encounter Care Teams Beauty Operator Relationship Specialty Start Date End Date Juana Bailey APRN [address] [place] [address] [place], [place] [address] PCP - General Nurse Practitioner-Family 08/29/22 documented as of this encounter
--- OUTSIDE RECORDS SUMMARY | 2024-02-27 14:01 | XMS_ITS | Encounter Summary ---
Author Organization [place] [address] Care Team Providers Care Quality Assurance Tech Name Role Phone Juana Bailey APRN Primary Care Provider [phone] Reason for Visit * Reason Comments Annual Exam SSI wants her screen ed for depression Encounter Details Date Type Department Care Team (Latest Contact Info) Description 10/24/2023 9:30 AM EDT Office Visit [facility] [place] [address] [place] [phone] Juana Bailey APRN [address] [place] [address] Annual physical exam (Primary Dx); Type 2 diabetes mellitus with hyperlipidemia (HCC); Statin myopathy; Stage 3b chronic kidney disease (HCC); Morbid obesity (HCC); Essential hypertension; Elevated uric acid in blood; Dyslipidemia; Vitamin D deficiency; Screening for depression; Sacroiliitis (HCC); Grief reaction Social History Tobacco Use Types Packs/Day Years [...] Date Recorded PHQ-2 Total Score 0 10/24/2023 [facility] [place] [facility] - Occupational Stress [...] place to sleep or slept in a [facility] (including now)? No 03/05/2023 Sexually Active Control Partners Comments Yes Male Comments No Sex and Gender Information Value Date Recorded Sex Assigned at Not on file Legal Sex Female 11:17 AM EDT Gender Identity Not on file Sexual Orientation Not on file documented as of this encounter Last Filed Vital Signs Vital Sign Reading Time Taken Comments Blood Pressure 104/72 10/24/2023 9:24 AM EDT Pulse 83 10/24/2023 9:24 AM EDT Temperature 36.7 ??C (98.1 ??F) 10/24/2023 9:24 AM ED T Respiratory Rate 18 10/24/2023 9:24 AM EDT Oxygen Saturation 98% 10/24/2023 9:24 AM EDT Inhaled Oxygen Concentration - - Weight 105.2 kg (232 lb) 10/24/2023 9:24 AM EDT Height 165.1 cm (5' 5 ) 10/24/2023 9:24 AM EDT Body Mass Index 38.61 10/24/2023 9:24 AM EDT documented in this [...] Progress Notes * Juana Bailey APRN - 10/24/2023 12:05 PM EDTAssociated Problem(s): Grief reaction 11/07/2022 2:29 PM 10/24/2023 9:27 AM PHQ Depression Scale Little interest or pleasure in doing things 0 0 Feeling down, depressed, or hopeless 0 0 PHQ-2 Total Score 0 0 PHQ-9 Total Score 0 0 * Juana Bailey APRN - 10/24/2023 9:30 AM EDT Assessment Diagnoses and all orders for this visit: Annual physical exam - CBC WITH DIFF; Future - COMPREHENSIVE METABOLIC PANEL; Future Type 2 diabetes mellitus with hyperlipidemia (HCC) (Chronic) Overview: Lab Results Component Value Date HGBA1C 6.3 (H) 06/21/2023 HGBA1C 6.9 (H) 03/21/2023 HGBA1C 7.6 (H) 10/23/2022 Metformin intolerance. on farxiga for dual mgmt of CKD and ozempic. Statin intolerance. ACEi/ARB held d/t CKD Unable to get repatha covered unless confirmed vascular disease Orders: - HEMOGLOBIN A1C; Future - MICROALBUMIN/CREATININE RATIO URINE; Future Statin myopathy Stage 3b chronic kidney disease (HCC) (Chronic) Overview: Preventing CKD Progression: 1.Tight control of BP, BS, Lipids, passive smoking etc 2.Avoid any NSAIDs 3.Avoid IV contrast (Oral contrast OK). 4.Careful selection of Abx, dose for current GFR. 5.DASH diet, along with limiting the protein intake. Recommended protein intake no more than 1 gm/kg/day. Na =2 gm per day. Limit Phosphorus and Purines in diet too. Orders: - VITAMIN B12/ FOLIC ACID; Future Morbid obesity (HCC) Overview: Wt Readings from Last 3 Encounters: 10/24/23 232 lb (105.2 kg) 06/26/23 248 lb 12.8 oz (112.9 kg) 06/21/23 253 lb (114.8 kg) Sig improvement on ozempic. Essential hypertension Overview: BP Readings from Last 3 Encounters: 10/24/23 104/72 06/26/23 132/80 06/21/23 112/78 Well controlled on HCTZ Orders: - TSH REFLEX; Future - T4, FREE (THYROXINE); Future Elevated uric acid in blood Overview: On allopurinol Dyslipidemia Overview: Myalgia associated with statin On zetia Orders: - LIPID PANEL REFLEX; Future Vitamin D deficiency Overview: On replacement. Orders: - VITAMIN D 25 HYDROXY; Future Screening for depression - [place] BEHAV ASSMT W/SCORE & DOCD/STAND INSTRUMENT Sacroiliitis (HCC) (Chronic) Overview: Managed by Dr. Bux On percocet QID Receives SHEMAR Grief reaction Overview: Had some depressive sx after loss of parents and divorce No debilitating depressive sx. Self manages and ok to continue to do so Assessment & Plan: 11/07/2022 2:29 PM 10/24/2023 9:27 AM PHQ Depression Scale Little interest or pleasure in doing things 0 0 Feeling down, depressed, or hopeless 0 0 PHQ-2 Total Score 0 0 PHQ-9 Total Score 0 0 Progress Note: Vitals: 10/24/23 0924 BP: 104/72 Pulse: 83 Resp: 18 Temp: 98.1 ??F (36.7 ??C) TempSrc: Forehead SpO2: 98% Weight: 232 lb (105.2 kg) Height: 5' 5 (1.651 m) Body mass index is 38.61 kg/m??. SUBJECTIVE: Chief Complaint Patient presents with Annual Exam SSI wants her screened for depression HPI: Well Adult: Subjective Ms. Madden is a 53 y.o. female here for an annual wellness visit. Diet: follows small portions Exercise: daily activities; some limitations to exercise due to chronic back pain Activities of Daily Living: Functional Level: Self-care ADL Limitations: none Social Interaction Screen: Do you have concerns about issues that may impact social interaction such as developmental or behavioral/mental health conditions? No. 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 She denies ongoing depression. Her history of depression followed the loss of her parents and then finding out her spouse of 24 years is homosexual. She feels she has been able to cope with all loses. Has no SI or HI. PHQ Depression Screening Results Little interest or pleasure in doing things: 0 Feeling down, depressed, or hopeless: 0 PHQ-2 Total Score: 0 PHQ-9 Total Score: 0 Health Maintenance Due Topic Date Due Breast Cancer Screening Never done Colon Cancer Screening Never done Annual Wellness Exam 08/22/2023 Microalbuminuria 10/24/2023 Health Maintenance Topic Date Due Breast Cancer Screening Never done Colon Cancer Screening Never done Annual Wellness Exam 08/22/2023 Microalbuminuria 10/24/2023 DTaP/TDaP/Td (1 - Tdap) 12/21/2023 (Originally 07/03/1987) Pneumococcal Vaccine 0-64 (1 of 2 - PCV) 12/21/2023 (Originally 1974) Hepatitis B Vaccine (1 of 3 - 19+ 3-dose series) 03/21/2024 (Originally 07/03/1987) Zoster (1 of 2) 04/25/2024 (Originally 2018) COVID-19 Vaccine (1 - 2022-24 season) 2024 (Originally 12/14/2022) Influenza Vaccine (1) 12/15/2023 Hemoglobin A1c 12/22/2023 Diabetic Eye Exam 02/21/2024 Lipids 06/20/2024 Cervical Cancer Screening 05/22/2028 Immunization History Administered Date(s) Administered Influenza Seasonal Injectable 01/16/2012, 01/13/2015 Influenza, Injectable,Quadrivalent,PF,Pediatric 01/15/2019 PPD Test 12/18/2022 Patient Active Problem List Diagnosis Insomnia, persistent Gastroesophageal reflux disease without esophagitis Essential hypertension Chronic migraine without aura without status migrainosus, not intractable Chronic midline thoracic back pain 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 Seasonal allergic rhinitis Type 2 diabetes mellitus with hyperlipidemia (HCC) Dyslipidemia Stage 3b chronic kidney disease (HCC) Normocytic anemia Elevated uric acid in blood Paroxysmal atrial fibrillation (HCC) RADHA (obstructive sleep apnea) Statin myopathy Cardiac arrhythmia Morbid obesity (HCC) Nicotine dependence Vitamin D deficiency Sacroiliitis (HCC) Grief reaction Past 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: Diagnosis Date Hypertension Irregular heart beat Migraines Past Surgical History: Procedure Laterality Date BACK SURGERY 10/2015 T9-T10 spinal fx requiring olga. BREAST REDUCTION SURGERY SECTION 1987 CHOLECYSTECTOMY TOTAL KNEE ARTHROPLASTY Bilateral TUBAL LIGATION No Known Allergies Current Outpatient Medications on File Prior to Visit Medication Sig Dispense Refill albuterol (PROVENTIL HFA;VENTOLIN HFA) 90 mcg/actuation Inhl HFA Aerosol Inhaler Inhale 2 Puffs into the lungs every 4 hours as needed for Wheezing. 1 Each 2 allopurinoL (ZYLOPRIM) 300 mg Oral Tablet TAKE ONE TABLET BY MOUTH ONCE A DAY 90 Tablet 3 aspirin-dipyridamole (AGGRENOX) 25-200 mg Oral Cap, Multiphasic Release 12 hr Take 1 Capsule by mouth 2 times daily. Once daily b dwmjnxq-[id number]-twxfp acid (NEPHROCAP) 1 mg Oral Capsule Take 1 Capsule by mouth daily. conjugated estrogens (PREMARIN) Vagl Cream Place 0.5 g vaginally every other day. 30 g 3 dapagliflozin propanediol (FARXIGA) 10 mg Oral Tablet TAKE ONE TABLET BY MOUTH ONCE A DAY 90 Tablet0 ergocalciferol (DRISDOL) 1,250 mcg (50,000 unit) Oral Capsule TAKE 1 CAPSULE BY MOUTH ONE TIME PER WEEK 4 Capsule 0 ezetimibe (ZETIA) 10 mg Oral Tablet Take 1 Tablet by mouth daily. 90 Tablet 3 fish oil OTC (OMEGA-3 DHA-EPA 300 MG) 300-1,000 mg Oral Capsule, Delayed Release(E.C.) Take 2 g by mouth daily. flecainide (TAMBOCOR) 50 mg Oral Tablet TAKE ONE TABLET BY MOUTH 2 TIMES A DAY 60 Tablet 0 hydroCHLOROthiazide 25 mg Oral Tablet TAKE ONE TABLET BY MOUTH ONCE A DAY 90 Tablet 3 loratadine (CLARITIN) 10 mg Oral Tablet TAKE ONE TABLET BY MOUTH ONCE A DAY 30 Tablet 0 metoprolol (LOPRESSOR) 50 mg Oral Tablet TAKE ONE TABLET BY MOUTH 2 TIMES A DAY 180 Tablet 2 omeprazole (PRILOSEC) 20 mg Oral Capsule, Delayed Release(E.C.) TAKE 1 CAPSULE BY MOUTH ONCE A DAY 90 Capsule 2 oxyCODONE-acetaminophen (PERCOCET) 10-325 mg Oral Tablet Take 1 Tablet by mouth every [address]. [address] Zelaya semaglutide (OZEMPIC) 2 mg/dose (8 mg/3 mL) SubQ Pen Injector Subcutaneous (Inject under the skin) 2 mg once a week. 3 mL 11 traZODone (DESYREL) 50 mg Oral Tablet TAKE ONE TABLET BY MOUTH EVERY NIGHT 90 Tablet 1 No current facility-administered medications on file prior to visit. Social History Socioeconomic History Marital status: Spouse name: None Number of children: None Years of education: None Highest education level: None Tobacco Use Smoking status: Never Smokeless tobacco: Current Types: Snuff Substance and Sexual Activity Alcohol use: Not Currently Drug use: Never Sexual activity: Yes Partners: Male Social Determinants of Health Financial Resource Strain: Low Risk (03/05/2023) Overall Financial Resource Strain (CARDIA) Difficulty of Paying Living Expenses: Not very hard Received from [facility], [facility] Food Insecurity Transportation Needs: No Transportation Needs (03/05/2023) PRAPARE - Transportation Lack of Transportation (Medical): No Lack of Transportation (Non-Medical): No Physical Activity: Inactive (03/05/2023) Exercise Vital Sign Days of Exercise per Week: 0 days Minutes of Exercise per Session: 0 min Stress: No Stress Concern Present (03/05/2023) [place] [facility] [employer] - Occupational Stress Questionnaire Feeling of Stress : Only a little Received from [employer], [facility] Family and Community Support Received from [facility], [facility] Abuse Screen Received from [employer], [facility] Housing Stability Family History Problem Relation Age of Onset Lung Cancer Mother Heart Disease Father Congenital Disease Brother Diabetes Brother Uterine Cancer Daughter No Known Problems Daughter No Known Problems Son No results found. No results found for this visit on 10/24/23. Patient Care Team: Juana Bailey APRN as PCP - General (Nurse Practitioner-Family) Lab Results Component Value Date WBC 10.1 10/23/2022 HGB 11.3 10/23/2022 HCT 34.9 10/23/2022 PLT 213 10/23/2022 CHOLESTEROL 173 06/21/2023 TRIG 171 (H) 06/21/2023 HDL 46 06/21/2023 LDLCALC 97 06/21/2023 ALT 23 06/21/2023 AST 27 06/21/2023 NA 139 06/21/2023 K 4.1 06/21/2023 CL 98 06/21/2023 CREATININE 0.85 06/21/2023 BUN 22 (H) 06/21/2023 CO2 30 (H) 06/21/2023 GLU 102 (H) 06/21/2023 HGBA1C 6.3 (H) 06/21/2023 MICROALBUR 80 10/23/2022 TSHREFLEX 2.020 10/23/2022 Additional issues addressed today: Diabetes: Jane following up today for diabetes. Current symptoms/problems include none. Current monitoring regimen: none Home blood sugar records: n/a Any episodes of hypoglycemia? no On insulin? No Weight trend: Body mass index is 38.61 kg/m??. Wt Readings from Last 3 Encounters: 10/24/23 232 lb (105.2 kg) 06/26/23 248 lb 12.8 oz (112.9 kg) 06/21/23 253 lb (114.8 kg) A1c trend: Lab Results Component Value Date HGBA1C 6.3 (H) 06/21/2023 HGBA1C 6.9 (H) 03/21/2023 HGBA1C 7.6 (H) 10/23/2022 Renal trend: No results found for: GFRAFRAM No results found for: GFRNONAFRAM Lab Results Component Value Date GFRCKDEPI 81 06/21/2023 GFRCKDEPI 65 03/21/2023 GFRCKDEPI 43 (L) 10/23/2022 Lipid trend: Lab Results Component Value Date LDLCALC 97 06/21/2023 Hypertension: Home reporting of hypertension was reviewed [...] The patient currently is not on a statin due to extreme myalgia. Is on zetia and tolerating well. Review of Systems Constitutional: Negative for fever. HENT: Negative for congestion. Respiratory: Negative for cough, shortness of breath and wheezing. Cardiovascular: Negative for chest pain, palpitations and leg swelling. Musculoskeletal: Positive for arthralgias and back pain. Skin: Negative for rash and wound. Hematological: Negative for adenopathy. Bruises/bleeds easily. OBJECTIVE: Physical Exam Constitutional: Appearance: She is obese. HENT: Head: Normocephalic and atraumatic. Cardiovascular: Rate and Rhythm: Normal rate and regular rhythm. Heart sounds: Normal heart sounds. Pulmonary: Effort: Pulmonary effort is normal. Breath sounds: Normal breath sounds. Musculoskeletal: General: Tenderness present. Skin: General: Skin is warm and dry. Capillary Refill: Capillary refill takes less than 2 seconds. Neurological: General: No focal deficit present. Mental Status: She is alert and oriented to person, place, and time. Psychiatric: Mood and Affect: Mood normal. Thought Content: Thought content normal. Judgment: Judgment normal. * Liz Yanes - 10/24/2023 9:30 AM EDT Venipuncture in the right antecubital vein with 21 gauge needle, length 1 1/2 inch. documented in this encounter Plan of Treatment Upcoming Encounters Date Type Department Care Team (Late st Contact Info) Description 05/07/2024 1:00 PM EST Office Visit [facility] [place] [facility] [address] [place] [phone] [employer]ua[employer] PRODUCT INFO SPECIALIST [address] [place] [address] Scheduled Orders Name Type Priority Associated Diagnoses Orde r Schedule [place] BEH[place] ASSMT W/SCORE & DOCD/STAND INSTRUMENT [place] Charge Routine Screening for depression Ordered: 10/24/2023 documented as of this encounter Goals Goal Patient Goal Type Associated Problems Recent Progress Patient-Stated? Author Blood Pressure < 140/90 Blood Pressure 112/70(2023 8:24 AM EDT) No Lynn, Juana, PRODUCT INFO SPECIALIST Maintain a healthy diet, exercise regularly and maintain an ideal body weight General No Noelle Yeh RMA BMI (Calculated) < 30 General 38.7(10/24/19 9:24 AM EDT) No Princess Anne, Juana, PRODUCT INFO SPECIALIST Stay Tobacco Free Lifestyle No Lynn Juana, PRODUCT INFO SPECIALIST HEMOGLOBIN A1C < 7.0 Result Component 6.1( 9:55 AM EDT) No Lynn Juana, PRODUCT INFO SPECIALIST documented as of this encounter Procedures Procedure Name Priority Date/Time Associated Diagnosis Comments MICROALBUMIN/CREATINI NE RATIO URINE Routine 10/24/2023 11:36 AM EDT Type 2 diabetes mellitus with hyperlipidemia (HCC) LIPID PANEL REFLEX Routine 10/24/2023 9: 55 AM EDT Dyslipidemia VITAMIN B12/ FOLIC ACID Routine 10/24/2023 9:55 AM EDT Stage 3b chronic kidney disease (HCC) TSH REFLEX Routine 10/24/2023 9:55 AM EDT Essential hypertension VITAMIN D 25 HYDROXY Routine 10/24/2023 9:55 AM EDT Vitamin D deficiency CBC WITH DIFF Routine 10/24/2023 9:55 AM EDT Annual physical exam T4, FREE (THYROXINE) Routine 10/24/2023 9:55 AM EDT Essential hypertension HEMOGLOBIN A1C Routine 10/24/2023 9:55 AM EDT Type 2 diabetes mellitus with hyperlipidemia (HCC) COMPREHENSIVE METABOLIC PANEL Routine 10/24/2023 9:55 AM EDT Annual physical exam documented in this encounter Results * MICROALBUMIN/CREATININE RATIO URINE (10/24/2023 11:36 AM EDT) Urine Microalb <12.0 mg/L 10/24/2023 4:23 PM EDT [facility] [employer] Urine Creatinine 96.8 mg/dL 10/24/19 24 4:23 PM EDT [employer] Ur Microalb/Creat 024 4:23 PM EDT [facility] [employer] Comment: Because the albumin level is below the level of detection in this urine specimen, the laboratory is unable to calculate a reliable albumin/creatinine ratio. Microalbuminuria is unlikely if the urine albumin concentration is less than 20- 30 mg/L in a random specimen. Urine URINE SPECIMEN COLLECTION / Unknown 10/24/2023 11:36 AM EDT 10/24/2023 11:36 AM EDT us Juana Bailey PRODUCT INFO SPECIALIST URINE ORDERABLES Final Resu lt [facility] [employer] [address] [facility] , [place] [address] * VITAMIN D 25 HYDROXY (10/24/2023 9:55 AM EDT) Vit D 25 OH 49.8 30.0 - 150.0 ng/mL 10/24/2023 5:21 PM EDT [facility] Comment: Preferred: >= 30 ng/mL Insufficient: 21-29 ng/mL Deficient <= 20 ??ng/mL Possible Toxicity: >150 ng/mL Samples should not be taken from patients receiving therapy with high biotin doses (i.e. > 5 mg/day) until at least 8 hours following the last biotin administration. Blood VENOUS BLOOD / Unknown Venipuncture / Unknown 10/24/2023 9:55 AM EDT 10/24/2023 9:55 AM EDT [facility] CHEMISTRY ORDERABLES Final Result Performing Organization Address [facility] Phone Number [address] , [place] [phone] * VITAMIN B12/ FOLIC ACID (10/24/2023 9:55 AM EDT) [facility] Vitamin B12 819 232 - 1,245 pg/mL 10/24/2023 5:21 PM EDT [facility] Folate >16.00 >=4.80 ng/mL 10/24/2023 5:21 PM EDT [facility] Blood VENOUS BLOOD / Unknown Venipuncture / Unknown 10/24/2023 9:55 AM EDT 10/24/2023 9:55 AM EDT Narrative [facility] - 10/24/2023 5:21 PM EDT Ingestion of omar doses of biotin (>5 mg/day) taken within 8 hours of drawing blood sample can interfere with this immunoassay test. [facility] CHEMISTRY ORDERABLES Final Result Performing Organization Address [facility] de Phone Number [address] [place] [address] * T4, FREE (THYROXINE) (10/24/2023 9:55 AM EDT) [facility] Free T4 1.20 0.80 - 1.80 ng/dL 10/24/2023 4:15 PM EDT [facility] [employer] [facility] Blood VENOUS BLOOD / Unknown Venipuncture / Unknown 10/24/2023 9:55 AM EDT 10/24/2023 9:55 AM EDT Narrative [facility] - 10/24/2023 4:15 PM EDT Ingestion of omar doses of biotin (>5 mg/day) taken within 8 hours of drawing blood sample can interfere with this immunoassay test. [facility] CHEMISTRY ORDERABLES Final Result Performing Organization Address [facility] de Phone Number [facility] [employer] , [place] [address] * TSH REFLEX (10/24/2023 9:55 AM EDT) TSH Reflex 4.180 0.270 - 4.200 mcIU/mL 10/24/2023 4:15 PM EDT [facility] [employer] [facility] Blood VENOUS BLOOD / Unknown Venipuncture / Unknown 10/24/2023 9:55 AM EDT 10/24/2023 9:55 AM EDT Narrative [facility] - 10/24/2023 4:15 PM EDT Ingestion of omar doses of biotin (>5 mg/day) taken within 8 hours of drawing blood sample can interfere with this immunoassay test. [facility] CHEMISTRY ORDERABLES Final Result Performing Organization Address [facility] de Phone Number [facility] [employer] , [place] [address] * (ABNORMAL) LIPID PANEL REFLEX (10/24/2023 9:55 AM EDT) Cholesterol 155 <200 mg/dL 10/24/2023 4:15 PM EDT [facility] [employer] [facility] Comment: < 200 ?Desirable 200 - 239 ? Borderline High >= 240 ?High Triglyceride 231(H) <150 mg/dL 10/24/2023 4:15 PM EDT [facility] [employer] Comment: < 150 ? Normal 150 - 199 ?Borderline High 200 - 499 ?High ??>= 500 ? Very High HDL 42 >=40 mg/dL 10/24/2023 4:15 PM EDT [facility] Comment: ??> 60 ?Optimal 40 - 60 ?Acceptable ?? < 40 ?Low LDL Calculated 75 <100 mg/dL 10/24/2023 4:15 PM EDT [facility] [employer] Non-HDL-C Calculated 113 <=129 mg/dL 10/24/2023 4:15 PM EDT [facility] Comment: <130 ?Desirable 130-159 Above Desirable 160-189 Borderline High 190-219 High >= 220 ??Very High Fasting Specimen? Yes None 024 4:15 PM EDT [facility] Blood VENOUS BLOOD / Unknown Venipuncture / Unknown 10/24/2023 9:55 AM EDT 10/24/2023 9:55 AM EDT Juana Bailey PRODUCT INFO SPECIALIST CHEMISTRY ORDERABLES Final Result Performing Organization Address [facility]/State/ZIP Co de Phone Number [facility] [employer] [address] [facility], [address] [place] [phone] [facility] [address] [place] [address] * (ABNORMAL) HEMOGLOBIN A1C (10/24/2023 9:55 AM EDT) [facility] Hgb A1C 6.1(H) 4.2 - 5.6 % 10/24/2023 4:28 PM EDT [facility] [employer] Est. Avg Glucose 128 mg/dL 10/24/2023 4:28 PM EDT [facility] [employer] Blood VENOUS BLOOD / Unknown Venipuncture / Unknown 10/24/2023 9:55 AM EDT 10/24/2023 9:55 AM EDT Narrative [facility] - 10/24/2023 4:28 PM EDT REFERENCE RANGE: Normal: 4.0-5.6% Pre-diabetes: 5.7-6.4% Provisional diagnosis of diabetes: >6.4% Hgb F>10% and anything which shortens red cell survival, such as hemolytic anemia, or unstable hemoglobin variants such as HbSS, HbSC, or HbCC, will lower the HbA1c value associated with a given level of glycemic control. ? Juana Bailey PRODUCT INFO SPECIALIST CHEMISTRY ORDERABLES Final Result [facility] [address] [facility] , [place] [address] * COMPREHENSIVE METABOLIC PANEL (10/24/2023 9:55 AM EDT) Sodium 141 136 - 145 mmol/L 10/24/2023 4:15 PM EDT [facility] Potassium 4.0 3.5 - 5.0 mmol/L 10/24/2023 4:15 PM EDT [facility] Chloride 101 98 - 107 mmol/L 10/24/2023 4:15 PM EDT [facility] Total CO2 28 22 - 29 mmol/L 10/24/2023 4:15 PM EDT [facility] Anion Gap 12 7 - 16 mmol/L 10/24/2023 4:15 PM EDT [facility] Calcium 10.0 8.6 - 10.4 mg/dL 10/24/2023 4:15 PM EDT [facility] Glucose Lvl 88 70 - 99 mg/dL 10/24/2023 4:15 PM EDT [facility] BUN 18 6 - 20 mg/dL 10/24/2023 4:15 PM EDT [facility] Creatinine 0.80 0.51 - 1.30 mg/dL 10/24/2023 4:15 PM EDT [facility] Albumin 3.9 3.5 - 5.2 gm/dL 10/24/2023 4:15 PM EDT [facility] Total Protein 7.3 6.4 - 8.3 gm/dL 10/24/2023 4:15 PM EDT [facility] Bili Total 0.3 0.2 - 1.3 mg/dL 10/24/2023 4:15 PM EDT [facility] ALT 20 <=41 U/L 10/24/2023 4:15 PM EDT [facility] AST 23 <=40 U/L 10/24/2023 4:15 PM EDT [facility] Alk Phos 83 36 - 123 U/L 10/24/2023 4:15 PM EDT [facility] eGFR (CKD-EPIcr 2020) 87 >=60 mL/min/1.7 3 m2 10/24/2023 4:15 PM EDT [facility] Comment:Estimated GFR was ca lculated using the CKD-EPIcr (2020) equation refit without race. The equation is recommended by the National Kid[employer] - [place] [employer] Nephrology Task Force. Blood VENOUS BLOOD / Unknown Venipuncture / Unknown 10/24/2023 9:55 AM EDT 10/24/2023 9:55 AM EDT Juana Bailey PRODUCT INFO SPECIALIST CHEMISTRY ORDERABLES Final Result [facility] [address] [facility], [address] [place] [id number] [facility] [address] [place], [place] [id number] * CBC WITH DIFF (10/24/2023 9:55 AM EDT) WBC 9.4 3.7 - 10.3 x10(3)/mcL 10/24/2023 4:04 PM EDT [facility] RBC 3.94 3.90 - 5.20 x10(6)/mcL 10/24/2023 4:04 PM EDT [facility] Hgb 12.6 11.2 - 15.7 g/dL 10/24/2023 4:04 PM EDT [facility] Hct 39.0 34.0 - 45.0 % 10/24/2023 4:04 PM EDT [facility] MCV 99.0 80.0 - 100.0 fL 10/24/2023 4:04 PM EDT [facility] MCH 32.0 26.0 - 34.0 pg 10/24/2023 4:04 PM EDT [facility] MCHC 32.3 30.7 - 35.5 g/dL 10/24/2023 4:04 PM EDT [facility] RDW 14.0 <=14.9 % 10/24/2023 4:04 PM EDT [facility] Platelet 204 155 - 369 x10(3)/mcL 10/24/2023 4:04 PM EDT [facility] MPV 11.1 8.8 - 12.5 fL 10/24/2023 4:04 PM EDT [facility] Neut Percent 53.4 % 10/24/2023 4:04 PM EDT [facility] Comment:Neutrophils equals s egs plus bands Imm Gran% 0.3 % 10/24/2023 4:04 PM EDT [facility] Comment:Automated count of m etamyelocytes, myelocytes and promyelocytes. Lymph Percent 33.9 % 10/24/2023 4:04 PM EDT [facility] Morrill Percent 8.6 % 10/24/2023 4:04 PM EDT [facility] Eos Percent 3.2 % 10/24/2023 4:04 PM EDT [facility] Baso Percent 0.6 % 10/24/2023 4:04 PM EDT [facility] Neut # 5.0 1.6 - 6.1 x10(3)/mcL 10/24/2023 4:04 PM EDT [facility] Comment:Neutrophils equals s egs plus bands IMMGRAN# 0.0 0.0 - 0.1 x10(3)/mcL 10/24/2023 4:04 PM EDT [facility] Comment:Automated count of m etamyelocytes, myelocytes and promyelocytes. An absolute IG <0.1 is reported as 0.0. Lymph # 3.2 1.2 - 3.9 x10(3)/mcL 10/24/2023 4:04 PM EDT [facility] Morrill # 0.8 0.3 - 0.9 x10(3)/mcL 10/24/2023 4:04 PM EDT [facility] Eos# 0.3 0.0 - 0.5 x10(3)/mcL 10/24/2023 4:04 PM EDT [facility] Baso # 0.1 0.0 - 0.1 x10(3)/[facility] 10/24/2023 4:04 PM EDT [facility] Blood VENOUS BLOOD / Unknown Venipuncture / Unknown 10/24/2023 9:55 AM EDT 10/24/2023 9:55 AM EDT us Juana Bailey APRN HEMATOLOGY ORDERABLES Final Result [facility] [address] [facility] , [place] [address] documented in this encounter Visit Diagnoses Diagnosis Annual physical exam- Primary Routine general medical examination at a health care facility Type 2 diabetes mellitus with hyperlipidemia (HCC) Statin myopathy Toxic myopathy Stage 3b chronic kidney disease (HCC) Morbid obesity (HCC) Morbid obesity Essential hypertension Unspecified essential hypertension Elevated uric acid in blood Other abnormal blood chemistry Dyslipidemia Other and unspecified hyperlipidemia Vitamin D deficiency Unspecified vitamin D deficiency Screening for depression Sacroiliitis (HCC) Sacroiliitis, not elsewhere classified Grief reaction Adjustment disorder with depressed mood documented in this encounter Care Teams Quality Assurance Tech Relationship Specialty Start Date End Date Juana Bailey APRN [address] [place] [address] PCP - General Nurse Practitioner-Family 08/29/22 documented as of this encounter
--- OUTSIDE RECORDS SUMMARY | 2024-02-27 14:01 | XMS_ITS | Encounter Summary ---
Author Organization [place] [address] Care Team Providers Care Community Marketing Manager Name Role Phone Juana Bailey APRN Primary Care Provider [phone] Reason for Visit * Reason Onset Date Comments Appointment Needed 09/10/2023 Office Visit Encounter Details Date Type Department Care Team (Late st Contact Info) Description 09/10/2023 Telephone [facility] [place] [address] [place] [address] Juana Bailey APRN [address] [facility] [address] Appointment Needed (Office Visit) Social History Tobacco Use Types Packs/Day Years [...] Date Recorded PHQ-2 Total Score 0 10/24/2023 [facility] [place] of Occupat ional Health - Occupational Stress [...] place to sleep or slept in a retirement (including now)? No 03/05/2023 Sexually Active Control [...] 11/07/2022 2:28 PM EDAlden Al CCMA * Is the person blind or does he/she have serious difficulty seeing even when wearing glasses? Answer Date of Assessment Author No 11/07/2022 2:28 PM EDT Alden Crowell CCMA * Does this person have serious difficulty walking or climbing stairs? Answer Date of Assessment Author No 11/07/2022 2:28 PM EDAlden Al CCMA * Does this person have difficulty dressing or bathing? Answer Date of Assessment Author No 11/07/2022 2:28 PM EDT Alden CrowellCHELSI Hartman * Because of a physical, mental or emotional condition, does this person have difficulty doing errands alone such as visiting a doctor's office or shopping? Answer Date of Assessment Author No 11/07/2022 2:28 PM EDT Alden CrowellCHELSI Hartman documented as of this encounter Mental Status * Because of a physical, mental or emotional condition, does this person have serious difficulty concentrating, remembering or making decisions? Answer Entry Date Author No 11/07/2022 2:28 PM EDT Alden CrowellCHELSI Hartman documented in this encounter Miscellaneous Notes * Telephone Encounter - Noelle Yeh RMA - 09/10/2023 2:59 PM EDT Appt made * Telephone Encounter - Kelby Bridges - 09/10/2023 2:50 PM EDT Select the most appropriate reason for this telephone message: Appointment Needed Appointment Requested By: Patient Provider Preference: PCP Only Type of Appt Needed: Office Visit Detailed Reason for Appt: ER f/u (headaches, throat pain). Requested Timeframe: Tomorrow Reason Scheduling Assistance is Needed: -no appts available with provider preference in time frame needed Additional Notes: N/A documented in this encounter Plan of Treatment Upcoming Encounters Date Type Department Care Team (Late st Contact Info) Description 05/07/2024 1:00 PM EST Office Visit [facility] [place] [facility] [address] [place] [address] Juana Bailey APRN [address] [place] [address] documented as of this encounter Goals Goal [...] on filedocumented in this encounter Care Teams Community Marketing Manager Relationship Specialty Start Date End Date Juana Bailey APRN [address] [place] [address] PCP - General Nurse Practitioner-Family 08/29/22 documented as of this encounter
--- OUTSIDE RECORDS SUMMARY | 2024-02-27 14:01 | XMS_ITS | Encounter Summary ---
Author Organization [place] [address] Care Team Providers Care Trimming Cutter Machine Name Role Phone Juana Bailey APRN Primary Care Provider [phone] Reason for Visit * Reason Comments Medication Refill Encounter Details Date Type Department Care Team (Late st Contact Info) Description 09/25/2023 Refill [facility] [address] [place] [phone] Juana Bailey APRN [address] [place] [address] Medication Refill Social History Tobacco Use Types Packs/Day Years Used Date Smoking Tobacco: Never Smokeless Tobacco: Current Snuff Alcohol Use Standard Drinks/Week Comments Not Currently 0 (1 standard drink = 0.6 oz pur e alcohol) Overall Financial Resource Strain ([facility]) [place] r Date Recorded How hard is it for you to pa y for the very basics like food, housing, medical care, and heating? Not very hard 03/05/2023 PHQ-2 Answer Date Recorded PHQ-2 Total Score 0 11/07/2022 [facility] [place] of Occupat ional Health - Occupational Stress [...] Entry Date Author No 11/07/2022 2:28 PM Alden Polanco CCMA documented in this encounter Ordered Prescriptions Prescription Sig Dispense Quantity Refills Last Filled Start Date End Date flecainide (TAMBOCOR) 50 mg Oral Tablet TAKE ONE TABLET BY MOUTH 2 TIMES A DAY 60 Tablet 09/26/2023 10/31/2023 documented in this encounter Plan of Treatment Upcoming Encounters Date Type Department Care Team (Late st Contact Info) Description 05/07/2024 1:00 PM EST Office Visit [facility] [address] [place] [phone] Juana Bailey APRN [address] [facility] [place] [address] documented as of this encounter Goals Goal [...] TABLET BY MOUTH 2 TIMES A DAY 08/27/202309/26/2023 documented as of this encounter Care Teams Trimming Cutter Machine Relationship Specialty Start Date End Date Juana Bailey APRN [address] [place] [address] PCP - General Nurse Practitioner-Family 08/29/22 documented as of this encounter
--- OUTSIDE RECORDS SUMMARY | 2024-02-27 14:02 | XMS_ITS | Encounter Summary ---
Author Organization [place] [address] Care Team Providers Care Perinatal Technician Name Role Phone Juana Bailey APRN Primary Care Provider [phone] Reason for Visit * Reason Comments Medication Refill Encounter Details Date Type Department Care Team (Late st Contact Info) Description 08/05/2023 Refill [facility] [address] [place] [phone] Juana Bailey APRN [address] [place] [address] Medication Refill Social History Tobacco Use Types Packs/Day Years Used Date Smoking Tobacco: Never Smokeless Tobacco: Current Snuff Alcohol Use Standard Drinks/Week Comments Not Currently 0 (1 standard drink = 0.6 oz pur e alcohol) Overall Financial Resource Strain ([facility]) [place] r Date Recorded How hard is it for you to pa y for the very basics like food, housing, medical care, and heating? Not very hard 03/05/2023 PHQ-2 Answer Date Recorded PHQ-2 Total Score 0 11/07/2022 [facility] [place] of Occupat ional Health - Occupational Stress [...] End Date traZODone (DESYREL) 50 mg Oral TabletIndications: Insomnia, persistent TAKE ONE TABLET BY MOUTH EVERY NIGHT 90 Tablet 1 08/05/2023 4 ergocalciferol (DRISDOL) 1,250 mcg (50,000 unit) Oral Capsule TAKE 1 CAPSULE BY MOUTH ONE TIME PER WEEK 4 Capsule 08/05/2023 4 loratadine (CLARITIN) 10 mg Oral Tablet TAKE ONE TABLET BY MOUTH ONCE A DAY 30 Tablet 08/05/2023 4 documented in this encounter Miscellaneous Notes * Telephone Encounter - Marni Santiago CPhT - 08/05/2023 1:22 PM EDT Trazodone Medication Refill Protocol passed. [facility] Action: Approved 90-day supply with sufficient refills to cover patient until scheduled appointment on 12/24/23, and not exceeding 90 days past that date. Loratadine Medication Refill Protocol not available for this medication. Routed to office staff. Vitamin D Medication Refill Protocol not available for this medication. Routed to office staff. documented in this encounter Plan of Treatment Upcoming Encounters Date Type Department Care Team (Late st Contact Info) Description 05/07/2024 1:00 PM EST Office Visit [facility] [place] [facility] [address] [phone] Juana Bailey APRN [address] [place] [address] documented as of this encounter Goals Goal [...] TAKE ONE TABLET BY MOUTH EVERY NIGHT 04/11/2023 08/05/2023 ergocalciferol (DRISDOL) 1,250 mcg (50,000 unit) Oral Capsule TAKE 1 CAPSULE BY MOUTH ONE TIME PER WEEK 04/04/2023 08/05/2023 loratadine (CLARITIN) 10 mg Oral Tablet TAKE ONE TABLET BY MOUTH ONCE A DAY 04/10/2023 08/05/2023 documented as of this encounter Care Teams Perinatal Technician Relationship Specialty Start Date End Date Juana Bailey APRN [address] [place] [address] PCP - General Nurse Practitioner-Family 08/29/22 documented as of this encounter
--- OUTSIDE RECORDS SUMMARY | 2024-02-27 14:02 | XMS_ITS | Encounter Summary ---
Author Organization [place] [address] Care Team Providers Care Distributed Energy Systems Consultant Name Role Phone Juana Bailey APRN Primary Care Provider [phone] Reason for Visit * Reason Onset Date Comments Results 05/29/[address] [facility] HEARING AIDS CYTOLOGY ORDER Encounter Details Date Type Department Care Team (Late st Contact Info) Description 05/29/2023 Telephone [facility] [address] [place] [phone] Juana Bailey APRN [address] [place] [address] Results ([facility] HEARING AIDS CYTOLOGY ORDER) Social History Tobacco Use Types Packs/Day Years [...] Date Recorded PHQ-2 Total Score 0 11/07/2022 [facility] [place] of Occupat ional Health - Occupational Stress [...] of Assessment Author No 11/07/2022 2:28 PM Dolores Polanco CCMA * Is the person blind or does he/she have serious difficulty seeing even when wearing glasses? Answer Date of Assessment Author No 11/07/2022 2:28 PM EDDolores Al CCMA * Does this person have serious difficulty walking or climbing stairs? Answer Date of Assessment Author No 11/07/2022 2:28 PM Dolores Polanco CCMA * Does this person have difficulty dressing or bathing? Answer Date of Assessment Author No 11/07/2022 2:28 PM EDT Dolores Crowelldolores Russell CCMDolores * Because of a physical, mental or emotional condition, does this person have difficulty doing errands alone such as visiting a doctor's office or shopping? Answer Date of Assessment Author No 11/07/2022 2:28 PM EDT Dolores Crowell Yvonne CHELSI documented as of this encounter Mental Status * Because of a physical, mental or emotional condition, does this person have serious difficulty concentrating, remembering or making decisions? Answer Entry Date Author No 11/07/2022 2:28 PM EDT Doloers Crowelldolores Russell CCMDolores documented in this encounter Miscellaneous Notes * Telephone Encounter - Princess Stephens RMA - 05/29/2023 2:41 PM EST noted * Telephone Encounter - Marlene Hidalgo MA - 05/29/2023 2:31 PM EST Select the most appropriate reason for this telephone message: Patient Calling for Results Patient called for results on Lab [facility] HEARING AIDS CYTOLOGY ORDER Which Provider ordered the test? Juana Bailey Date of test: 05/22/23 Advised patient of: abnormal result. Patient Instructions/ Questions: n/a Medications Ordered/Pended (if yes, list medication): Yes flagyl Medications/Orders Needed: No Pharmacy Location Verified: No Other: Please put in the patient results note that pt is aware of the following results [facility] HEARING AIDS CYTOLOGY ORDER Juana Bailey APRN 05/28/2023 11:39 AM EST Does have a vaginal bacterial infection (this is not sexually transmitted). I sent in Flagyl to treat this. It is twice per day for one week. Rest of pap smear is normal. documented in this encounter Plan of Treatment Upcoming Encounters Date Type Department Care Team (Late st Contact Info) Description 05/07/2024 1:00 PM EST Office Visit [facility] [place] [facility] [address] [place], [place] [phone] Juana Bailey APRN [address] [facility] [place] [address] documented as of this encounter Goals Goal [...] on filedocumented in this encounter Care Teams Distributed Energy Systems Consultant Relationship Specialty Start Date End Date Juana Bialey APRN [address] [facility] [place] [address] PCP - General Nurse Practitioner-Family 08/29/22 documented as of this encounter
--- OUTSIDE RECORDS SUMMARY | 2024-02-27 14:02 | XMS_ITS | Encounter Summary ---
Author Organization [place] [address] Care Team Providers Care Drapery And Upholstery Measurer Name Role Phone Juana Bailey APRN Primary Care Provider [phone] Reason for Visit * Reason Comments Medication Refill Encounter Details Date Type Department Care Team (Late st Contact Info) Description 04/10/2023 Refill [facility] [address] [place] [phone] Juana Bailey APRN [address] [facility] [place] [address] Medication Refill Social History Tobacco Use Types Packs/Day Years Used Date Smoking Tobacco: Never Smokeless Tobacco: Current Snuff Alcohol Use Standard Drinks/Week Comments Not Currently 0 (1 standard drink = 0.6 oz pur e alcohol) Overall Financial Resource Strain ([facility]) [place] r Date Recorded How hard is it for you to pa y for the very basics like food, housing, medical care, and heating? Not very hard 03/05/2023 PHQ-2 Answer Date Recorded PHQ-2 Total Score 0 11/07/2022 [facility] [place] of Occupat ional Health - Occupational Stress [...] TAKE ONE TABLET BY MOUTH EVERY NIGHT 30 Tablet 3 04/11/2023 08/05/2023 documented in this encounter Plan of Treatment Upcoming Encounters Date Type Department Care Team (Late st Contact Info) Description 05/07/2024 1:00 PM EST Office Visit [facility] [address] [place] [phone] Juana Bailey APRN [address] [facility] [place] [address] documented as of this encounter Goals Goal [...] TAKE ONE TABLET BY MOUTH EVERY NIGHT 03/06/2023 04/11/2023 documented as of this encounter Care Teams Drapery And Upholstery Measurer Relationship Specialty Start Date End Date Juana Bailey APRN [address] [place] [address] PCP - General Nurse Practitioner-Family 08/29/22 documented as of this encounter
--- OUTSIDE RECORDS SUMMARY | 2024-02-27 14:02 | XMS_ITS | Encounter Summary ---
Author Organization [place] [address] Care Team Providers Care L Tacker Name Role Phone Juana Bailey APRN Primary Care Provider Reason for Referral * GI Procedure (Routine) - Pending Review Specialty Diagnoses / Procedures Referred By Contac t Referred To Contact General Surgery Diagnoses Special screening for malignant neoplasms, colon Screening for malignant neoplasm of the rectum Juana Bailey APRN [address] [place] [address] Phone: tel: fax: [facility] [address] [place] [address] Phone: tel: fax: Referral ID Status Reason Start Date Expiration Date V isits Requested Visits Authorized [id number] Pending Review 05/10/2023 05/09/2024 1 1 Reason for Visit * Reason Onset Date Comments Central Order Completion Outreach 05/10/2023 Mammogram Encounter Details Date Type Department Care Team ([facility] Contact Info) Description 05/10/2023 Patient Outreach [facility] [address] [place] [address] Juana Bailey APRN [address] [place] [id number] Central Order Completion Outreach (Mammogram) Social History Tobacco Use Types Packs/Day Years [...] Date Recorded PHQ-2 Total Score 0 11/07/2022 [facility] replaced [facility] - Occupational Stress Questionnaire Answer Date [...] 2:28 PM EDT Alden Crowell CCMA * Is the person blind or does he/she have serious difficulty seeing even when wearing glasses? Answer Date of Assessment Author No 11/07/2022 2:28 PM EDT Alden Crowell CCMA * Does this person have serious difficulty walking or climbing stairs? Answer Date of Assessment Author No 11/07/2022 2:28 PM EDT Alden Crowell CCMA * Does this person have difficulty [...] Alden Crowell CCMA documented in this encounter Progress Notes * Tabitha Sharma RN - 05/30/2023 12:31 PM EST SEP Order Completion Outcome Tracking Contact Attempt:: Final Mammogram Outcome:: Screening Scheduled patient called to reschedule mammo appt * Irma Daigle RN - 05/10/2023 10:03 AM EST SEP Order Completion Outcome Tracking Contact Attempt:: Final Mammogram Outcome:: Screening Scheduled During Order Completion Outreach, care gaps addressed are Cervical Cancer Screening and Colorectal Cancer Screening. Cervical Cancer screening scheduled 05/15/23. Colonoscopy referral placed. Message routed to [facility] to assist with scheduling. Has the patient ever had a colonoscopy? no Family hx of colon cancer or polyps? no If so who and what age: Preferred date, time, and physician for procedure: Has the patient been fully vaccinated for COVID?No Preferred time for COVID test: Does the patient have kidney disease? Yes, CKD Pharmacy preference:[facility] Medications: Prior to Admission medications Medication Sig Start Date End Date Taking? Authorizing Provider albuterol (PROVENTIL HFA;VENTOLIN HFA) 90 mcg/actuation Inhl HFA Aerosol Inhaler Inhale 2 Puffs into the lungs every 4 hours as needed for Wheezing. 11/29/22 Juana Bailey APRN allopurinoL (ZYLOPRIM) 300 mg Oral Tablet TAKE ONE TABLET BY MOUTH ONCE A DAY 03/06/23 Juana Bailey APRN Amantadine 100 mg Oral Tablet 08/30/22 Provider, Historical aspirin-dipyridamole (AGGRENOX) 25-200 mg Oral Cap, Multiphasic Release 12 hr Take 1 Capsule by mouth 2 times daily. Once daily Provider, Historical b gysidkg-Y-jdxgr acid (NEPHROCAP) 1 mg Oral Capsule Take 1 Capsule by mouth daily. Provider, Historical busPIRone (BUSPAR) 10 mg Oral Tablet Take 1 Tablet by mouth 2 times daily as needed. 03/21/23 Juana Bailey APRN conjugated estrogens (PREMARIN) Vagl Cream Place 0.5 g vaginally every other day. 02/20/23 Juana Bailey APRN cyclobenzaprine (FLEXERIL) 5 mg Oral Tablet 02/26/23 Provider, Historical dapagliflozin propanediol (FARXIGA) 10 mg Oral Tablet TAKE ONE TABLET BY MOUTH ONCE A DAY 03/06/23 Juana Bailey APRN ergocalciferol (DRISDOL) 1,250 mcg (50,000 unit) Oral Capsule TAKE 1 CAPSULE BY MOUTH ONE TIME PER WEEK 04/04/23 Juana Bailey APRN ezetimibe (ZETIA) 10 mg Oral Tablet Take 1 Tablet by mouth daily. 01/03/23 Juana Bailey APRN fish oil OTC (OMEGA-3 DHA-EPA 300 MG) 300-1,000 mg Oral Capsule, Delayed Release(E.C.) Take 2 g by mouth daily. Provider, Historical flecainide (TAMBOCOR) 50 mg Oral Tablet TAKE ONE TABLET BY MOUTH 2 TIMES A DAY 04/23/23 Juana Bailey APRN gabapentin (NEURONTIN) 300 mg Oral Capsule 02/07/23 Provider, Historical hydroCHLOROthiazide 25 mg Oral Tablet TAKE ONE TABLET BY MOUTH ONCE A DAY 03/06/23 Juana Bailey APRN loratadine (CLARITIN) 10 mg Oral Tablet TAKE ONE TABLET BY MOUTH ONCE A DAY 04/10/23 Juana Bailey APRN melatonin 10 mg Oral Capsule Take by mouth. Provider, Historical metoprolol (LOPRESSOR) 50 mg Oral Tablet TAKE ONE TABLET BY MOUTH 2 TIMES A DAY 11/21/22 uJana Bailey APRN nicotine polacrilex (COMMIT) [address] 1 Lozenge inside cheek as needed (nicotine cessation) for up to 30 days. 04/25/23 05/25/23 Juana Bailey APRN omeprazole (PRILOSEC) 20 mg Oral Capsule, Delayed Release(E.C.) TAKE 1 CAPSULE BY MOUTH ONCE A DAY 11/21/22 Juana Bailey APRN oxyCODONE-acetaminophen (PERCOCET) 10-325 mg Oral Tablet Take 1 Tablet by mouth every [address] eZlaya Provider, Historical semaglutide (OZEMPIC) 1 mg/dose (4 mg/3 mL) SubQ Pen Injector Subcutaneous (Inject under the skin) 1 mg once a week. 03/21/23 Juana Bailey APRN traZODone (DESYREL) 50 mg Oral Tablet TAKE ONE TABLET BY MOUTH EVERY NIGHT 04/11/23 Juana Bailey APRN Allergies:No Known Allergies Any GI symptoms? no If so please list: Is the patient on O2? No but has CPAP Is patient on a blood thinner? noIf so who manages: Has the patient had a heart attack in the last 6 months or stroke in the last 12 months? No Does the patient have a mechanical heart valve?No Does the patient currently take a controlled substance?No Is the patient greater than 75 years old?No Patient weight? 265 lbs Is the patient wheelchair dependant? No Is the insurance listed in Epic current? Yes * Marilin Rivera RN - 05/10/2023 9:34 AM EST SEP Order Completion Outcome Tracking Contact Attempt:: First Mammogram Outcome:: Left Voicemail to Return Call at [phone], [employer] Message documented in this encounter Miscellaneous Notes * Telephone Encounter - Janice Berkowitz - 05/14/2023 8:53 AM EST Lmtcb x 2 * Telephone Encounter - Bren Juarez, Clerical Staff - 05/13/2023 10:14 AM EST Lmtcb x 1 * Telephone Encounter - Yvonne Albrecht RMA - 05/13/2023 9:09 AM EST The patient will need an OV per Maycol's note on Teams. * Telephone Encounter - Sandra Mcgee ABR-OE - 05/13/2023 8:03 AM EST Pt has aggrenox on med list, I think we need to sched an ov. * Addendum Note - Irma Daigle RN - 05/10/2023 10:19 AM ESTAddended by: IRMA DAIGLE on: 05/10/2023 10:19 AM Modules accepted: Orders documented in this encounter Plan of Treatment Upcoming Encounters Date Type Department Care Team (Late st Contact Info) Description 05/07/2024 1:00 PM EST Office Visit [facility] [address] [place] [address] Juana Bailey APRN [address] [place] [address] Scheduled Referrals Name Type Priority Associated Diagnoses Order Schedule SCREENING COLONOSCOPY Outpatient Referral Routine Special screening for malignant neoplasms, colon Screening for malignant neoplasm of the rectum Ordered: 05/10/2023 documented as of this encounter Goals Goal [...] as of this encounter Visit Diagnoses Diagnosis Special screening for malignant neoplasms, colon- Primary Screening for malignant neoplasm of the rectum documented in this encounter Care Teams L Tacker Relationship Specialty Start Date End Date Juana Bailey APRN [address] [place] [address] [place] [address] PCP - General Nurse Practitioner-Family 08/29/22 documented as of this encounter
--- OUTSIDE RECORDS SUMMARY | 2024-02-27 14:02 | XMS_ITS | Encounter Summary ---
Author Organization [place] [address] Care Team Providers Care Margin Clerk Name Role Phone Juana Bailey APRN Primary Care Provider [phone] Reason for Visit * Reason Comments Gynecologic Exam Encounter Details Date Type Department Care Team (Late st Contact Info) Description 05/22/2023 9:30 AM EST Office Visit [facility] [place] [address] [place] [address] Juana Bailey APRN [address] [place] [address] Cervical cancer screening (Primary Dx); Screening for STDs (sexually transmitted diseases) Social History Tobacco Use Types Packs/Day Years [...] Date Recorded PHQ-2 Total Score 0 11/07/2022 [facility] [place] of Occupat ional Health - Occupational Stress [...] Sign Reading Time Taken Comments Blood Pressure 110/68 05/22/2023 9:27 AM EST Pulse 72 05/22/2023 9:27 AM EST Temperature 36.3 ??C (97.3 ??F) 05/22/2023 9:27 AM ES T Respiratory Rate 18 05/22/2023 9:27 AM EST Oxygen Saturation 97% 05/22/2023 9:27 AM EST Inhaled Oxygen Concentration - - Weight 116.1 kg (256 lb) 05/22/2023 9:27 AM EST Height - - Body Mass Index 42.6 11/07/2022 2:29 PM EDT documented in this encounter Functional Status [...] Progress Notes * Juana Bailey APRN - 05/22/2023 9:30 AM EST Assessment Diagnoses and all orders for this visit: Cervical cancer screening - CA OBTAINING SCREEN PAP SMEAR - [facility] ADMISSIONS ASSISTANT CYTOLOGY ORDER; Future Screening for STDs (sexually transmitted diseases) - CA OBTAINING SCREEN PAP SMEAR - [facility] ADMISSIONS ASSISTANT CYTOLOGY ORDER; Future - ACUTE HEPATITIS PANEL; Future - HIV AG/AB; Future - SYPHILIS SCREEN WITH REFLEX RPR QUANT; Future Reviewed guidelines for cervical cancer screening Std screening done. Labs ordered. To keep apt for mammogram and colonoscopy. Progress Note: Vitals: 05/22/23 0927 BP: 110/68 Pulse: 72 Resp: 18 Temp: 97.3 ??F (36.3 ??C) TempSrc: Forehead SpO2: 97% Weight: 256 lb (116.1 kg) Body mass index is 42.6 kg/m??. SUBJECTIVE: Chief Complaint Patient presents with Gynecologic Exam HPI: Here for pap smear. Unsure of last one. Lmp 5 years ago. Uses premarin cream as needed for vaginal dryness Would like hpv and std testing. Only one partner but he had an affair. She does not have pelvic pain, vaginal discharge or abnormal bleeding. Mammogram and colonoscopy scheduled. Review of Systems Constitutional: Negative for fever. Respiratory: Negative for cough, shortness of breath and wheezing. Cardiovascular: Negative for chest pain, palpitations and leg swelling. Genitourinary: Negative for menstrual problem. OBJECTIVE: Physical Exam Constitutional: Appearance: She is obese. Pulmonary: Effort: Pulmonary effort is normal. Genitourinary: Exam position: Knee-chest position. Vagina: Normal. Cervix: Normal. Uterus: Normal. Neurological: Mental Status: She is alert and oriented to person, place, and time. documented in this encounter Plan of Treatment Upcoming Encounters Date Type Department Care Team (Late st Contact Info) Description 05/07/2024 1:00 PM EST Office Visit [facility] [place] [address] [place] [phone] Juana Bailey APRN [address] [place] [address] Scheduled Orders Name Type Priority Associated Diagnoses Orde r Schedule CA OBTAINING SCREEN PAP SMEAR CA Charge Routine Cervical cancer screening Screening for STDs (sexually transmitted diseases) Ordered: 05/22/2023 documented as of this encounter Goals Goal [...] 7.0 Result Component 6.1( 9:55 AM EDT) Juana Brito APRN documented as of this encounter Procedures Procedure Name Priority Date/Time Associated Diagnosis Comments HIV AG/AB Routine 05/22/2023 10:14 AM EST Screening for STDs (sexually transmitted diseases) SYPHILIS SCREEN WITH REFLEX RPR QUANT Routine 05/22/2023 10:14 AM EST Screening for STDs (sexually transmitted diseases) ACUTE HEPATITIS PANEL Routine 05/22/2023 10:14 AM EST Screening for STDs (sexually transmitted diseases) ADMISSIONS ASSISTANT CYTOLOGY REQUEST (PAP ONLY) Routine 05/22/2023 9:58 AM EST Cervical cancer screening Screening for STDs (sexually transmitted diseases) TRICHOMONAS VAGINALIS BY TMA (PAP PANEL) Routine 05/22/2023 9:58 AM EST Cervical cancer screening Screening for STDs (sexually transmitted diseases) GC CHLAMYDIA THIN PREP Routine 05/22/2023 9:58 AM EST Cervical cancer screening Screening for STDs (sexually transmitted diseases) [facility] ADMISSIONS ASSISTANT CYTOLOGY ORDER Routine 05/22/2023 9:58 AM EST Cervical cancer screening Screening for STDs (sexually transmitted diseases) HPV HIGH RISK WITH REFLEX TO GENOTYPE Routine 05/22/2023 9:58 AM EST Cervical cancer screening Screening for STDs (sexually transmitted diseases) documented in this encounter Results * SYPHILIS SCREEN WITH REFLEX RPR QUANT (05/22/2023 10:14 AM EST) Trep Ab Index 0.11 <=0.99 Index Value 05/22/2023 5:42 PM EST PREFERRED [place], [employer] Comment: < 1.00 - Non-Reactive ?? >=1.00 - Reactive NOTE: ??All reactive results will be reflexed to Quantitative Non-Treponemal(RPR)test. ?? Blood VENOUS BLOOD / Unknown Venipuncture / Unknown 05/22/2023 10:14 AM EST 05/22/2023 10:14 AM EST us Juana [place] [facility] CHEMISTRY ORDERABLES Final Result Performing Organization Address City/[facility]/ZIP Co de Phone Number [facility] [address] , [place] [address] * HIV AG/AB (05/22/2023 10:14 AM EST) HIV Ag/AB Non-Reactiv e Non-Reacti ve 05/22/2023 5:42 PM EST [facility] Blood VENOUS BLOOD / Unknown Venipuncture / Unknown 05/22/2023 10:14 AM EST 05/22/2023 10:14 AM EST Juana [place] [facility] IMMUNOLOGY ORDERABLES Final Result Performing Organization Address [facility] de Phone Number [facility] [address] [facility] [facility] , [place] [address] * ACUTE HEPATITIS PANEL (05/22/2023 10:14 AM EST) Hep Bs Ag Non-Reacti ve Non-Reacti ve 05/22/2023 5:45 PM EST [facility] Hep B Core IgM Non-Reacti ve Non-Reacti ve 05/22/2023 5:45 PM EST [facility] Hep A IgM Non-Reacti ve Non-Reacti ve 05/22/2023 5:45 PM EST [facility] Hep C Ab Non-Reacti ve Non-Reacti ve 05/22/2023 5:45 PM EST [facility] Blood VENOUS BLOOD / Unknown Venipuncture / Unknown 05/22/2023 10:14 AM EST 05/22/2023 10:14 AM EST Juana Lynn [employer] CHEMISTRY ORDERABLES Final Result Performing Organization Address City/[facility] Co de Phone Number [facility] [address] [facility] , [place] [address] * TRICHOMONAS VAGINALIS BY TMA (PAP PANEL) (05/22/2023 9:58 AM EST) Pathologist [facility] Trichomonas vaginalis by TMA Not Detected Not Detected 05/23/2023 10:43 PM EST [facility] Thin Prep SPECIMEN FROM UTERINE CERVIX / Unknown 05/22/2023 9:58 AM EST 05/22/2023 9:58 AM EST Narrative [facility]REF[facility] [employer] [facility], [facility] - 05/23/2023 10:43 PM EST Test methodology is medical assembler mediated amplification (TMA) using the Aptima Trichomonas vaginalis assay from [employer]. ?? A negative result does not completely rule out a Trichomonas vaginalis infection due to potential inhibitors or levels present below the limit of detection of this assay. ??Results are dependent on proper collection and transport of specimen. ??This test is indicated for medical purposes only and should not be used for legal or forensic purposes. ?? The assay has been cleared by the FDA to test the following specimens from symptomatic or asymptomatic women: clinician-collected endocervical swabs, clinician-collected vaginal swabs, and ??specimens collected in PreservCyt solution. ??Testing on first-catch male and female urine is not FDA-approved by this methodology; performance characteristics of the assay on these sample types were determined by [facility]. Juana Bailey APRN MICROBIOLOGY - GENERAL SURESH CALDERON Final Result [facility] , [place] [address] * GC CHLAMYDIA THIN PREP (05/22/2023 9:58 AM EST) Pathologist [facility] Chlamydia trachomatis Not Detected Not Detected 05/23/2023 10:58 PM EST [facility] [employer], [facility] Neisseria gonorrhoeae Not Detected Not Detected 05/23/2023 10:58 PM EST [facility] Thin Prep SPECIMEN FROM UTERINE CERVIX / Unknown 05/22/2023 9:58 AM EST 05/22/2023 9:58 AM EST Narrative [facility] [employer], [facility] - 05/23/2023 10:58 PM EST Testing methodology is medical assembler mediated amplification (TMA) using the Aptima Combo 2 assay from [employer]. A negative result does not completely rule out a Chlamydia trachomatis or Neisseria gonorrhoeae infection due to potential inhibitors or levels present below the limit of detection by this assay. ??Results are dependent on proper collection and transport of specimen. This test is indicated for medical purposes only and should not be used for legal or forensic purposes. The performance characteristics of this assay were validated by the testing laboratory. This assay is FDA cleared to test the following specimens: clinician-collected endocervical, vaginal, male urethral swab specimens, rectal swabs, and throat/pharyngeal swabs; patient collected vaginal specimens within a clinic setting; Thin Prep Specimens in PreservCyt Solution; and first-stream, unpreserved male and female urine specimens. Detailed methodology is available upon request. Juana Bailey APRN MICROBIOLOGY - GENERAL SURESH CALDERON Final Result [facility] [address] [address] , [place] [address] * HPV HIGH RISK WITH REFLEX TO GENOTYPE (05/22/2023 9:58 AM EST) HPV HR Reflex Not Detected Not Detected 024 11:08 PM EST [facility] Thin Prep SPECIMEN FROM UTERINE CERVIX / Unknown 05/22/2023 9:58 AM EST 05/22/2023 9:58 AM EST Narrative [facility] - 05/23/2023 11:08 PM EST This test was performed using the FDA Approved APTIMA HPV mRNA assay which detects E6/E7 messenger RNA of High Risk HPV types (16, 18, 31, 33, 35, 39, 45, 51, 52, 56, 58, 59, 66, and 68).?? This assay is intended for use in women 21 years or older with ASC-US cervical cytology or women 30 years or older. This assay is not intended to substitute for regular cervical cytology screening. Detection of HPV using the APTIMA HPV Assay does not differentiate HPV types and cannot evaluate persistence of any one type. The use of this assay has not been evaluated for the management of HPV vaccinated women, women with prior ablative or excisional therapy, hysterectomy, or who are . Sensitivities may be affected by collection methods, stage of infection, and the presence of interfering substances. Results of this assay should be interpreted in conjunction with other available laboratory and clinical data.?? us Juana Bailey APRN MICROBIOLOGY - GENERAL SURESH CALDERON Final Result [facility] [address] [facility], [place] [address] * ADMISSIONS ASSISTANT CYTOLOGY REQUEST (PAP ONLY) (05/22/2023 9:58 AM EST) CASE REPORT Gynecologic Cytology Report ? Case: [id number] ? Authorizing Provider: ??Juana Bailey APRN ? Collected: ? 05/22/2023 0958 ? Ordering Location: ? [facility] [place] [facility] ?Received: ?05/22/2023 09 ? First Screen: ?Jose Douglas, ? CT ? Specimen: ?LIQUID-BASED PAP - CERVICAL/ENDOCERV ICAL, Cervix, Endocervical ? 05/25/2023 1:17 PM EST [facility] PAP FINAL DIAGNOSIS Negative for intraepithelial lesion or malignancy 05/25/2023 1:17 PM [facility] OSCOPIC DESCRIPTION Microscopic examination is performed and the findings corroborate the diagnosis. 05/25/2023 1:17 PM EST [facility] PAP SMEAR ADEQUACY Satisfactory for evaluation 05/25/2023 1:17 PM EST [facility] PAP ORGANISMS NOTED Shift in claus suggestive of bacterial vaginosis. 05/25/2023 1:17 PM EST [facility] ENDOCERVICAL T-ZONE Transformation Zone Absent. This is not unusual in a post-menopausal woman. 05/25/2023 1:17 PM EST [facility] EMBEDDED IMAGES 1:17 PM [facility] PAP DISCLAIMER The Pap Smear is a screening test that aids in the detection of cervical cancer and cancer precursors. Both false positive and false negative results can occur. The test should be used at regular intervals, and positive results should be confirmed before definitive therapy. Processed using the ThinPrep Rn Anesthetist Automated cytology screening device ([employer]). 05/25/2023 1:17 PM [facility] Thin Prep ENDOCERVICAL STRUCTURE / Unknown 05/22/2023 9:58 AM EST 05/22/2023 9:58 AM EST Juana Bailey [employer] CYTOLOGY ORDERABLES Final [facility] [address] [place] [address] documented in this encounter Visit Diagnoses Diagnosis Cervical cancer screening- Primary Screening for malignant neoplasm of the cervix Screening for STDs (sexually transmitted diseases) Screening examination for venereal disease documented in this encounter Discontinued Medications Medication Sig Discontinue Reason Start Date End Da te melatonin 10 mg Oral Capsule Take by mouth. DELETE-Therapy completed 05/22/2023 gabapentin (NEURONTIN) 300 mg Oral Capsule DELETE-Therapy completed 02/07/2023 05/22/2023 cyclobenzaprine (FLEXERIL) 5 mg Oral Tablet DELETE-Therapy completed 02/26/2023 05/22/2023 busPIRone (BUSPAR) 10 mg Oral TabletIndications:Situ ational anxiety Take 1 Tablet by mouth 2 times daily as needed. DELETE-Therapy completed 03/21/2023 05/22/2023 Amantadine 100 mg Oral Tablet DELETE-Therapy completed 08/30/2022 05/22/2023 documented as of this encounter Care Teams Margin Clerk Relationship Specialty Start Date End Date Juana Bailey APRN [address] [place], [place] [address] PCP - General Nurse Practitioner-Family 08/29/22 documented as of this encounter
--- OUTSIDE RECORDS SUMMARY | 2024-02-27 14:02 | XMS_ITS | Encounter Summary ---
Author Organization [place] [address] Care Team Providers Care Movable Bulkhead Installer Name Role Phone Juana Bailey APRN Primary Care Provider [phone] Reason for Visit * Reason Comments Medication Refill Encounter Details Date Type Department Care Team (Late st Contact Info) Description 08/26/2023 Refill [facility] [address] [place] [address] Juana Bailey APRN [address] [place] [address] Medication Refill Social History Tobacco Use Types Packs/Day Years Used Date Smoking Tobacco: Never Smokeless Tobacco: Current Snuff Alcohol Use Standard Drinks/Week Comments Not Currently 0 (1 standard drink = 0.6 oz pur e alcohol) Overall Financial Resource Strain ([facility]) Answe r Date Recorded How hard is it for you to pa y for the very basics like food, housing, medical care, and heating? Not very hard 03/05/2023 PHQ-2 Answer Date Recorded PHQ-2 Total Score 0 11/07/2022 [facility] [place] of Occupat ional Health - Occupational Stress [...] MOUTH 2 TIMES A DAY 60 Tablet 08/27/2023 09/26/2023 documented in this encounter Plan of Treatment Upcoming Encounters Date Type Department Care Team (Late st Contact Info) Description 05/07/2024 1:00 PM EST Office Visit [facility] [address] [place] [phone] Juana Bailey APRN [address] [facility] [place] [address] documented as of this encounter Goals Goal [...] TABLET BY MOUTH 2 TIMES A DAY 07/24/202308/27/2023 documented as of this encounter Care Teams Movable Bulkhead Installer Relationship Specialty Start Date End Date Juana Bailey APRN [address] [place], [place] [address] PCP - General Nurse Practitioner-Family 08/29/22 documented as of this encounter
--- OUTSIDE RECORDS SUMMARY | 2024-02-27 14:02 | XMS_ITS | Encounter Summary ---
Author Organization [place] [address] Care Team Providers Care Program Analyst Name Role Phone Juana Bailey APRN Primary Care Provider [phone] Reason for Visit * Reason Comments Medication Refill Encounter Details Date Type Department Care Team (Late st Contact Info) Description 09/10/2023 Telephone SEP Nati [address] [place] [address] Juana Bailey APRN [address] [place] [address] Medication Refill Social History Tobacco Use Types [...] Date Recorded PHQ-2 Total Score 0 11/07/2022 [facility] of Occupat ional Health - Occupational Stress [...] place to sleep or slept in a group home (including now)? No 03/05/2023 Sexually Active Control [...] Refills Last Filled Start Date End Date FARXIGA 10 mg Oral TabletIndications:St age 1b chronic kidney disease (HCC),Type 2 diabetes mellitus with hyperlipidemia (HCC),ASHD (arteriosclerotic heart disease) TAKE ONE TABLET BY MOUTH ONCE A DAY 30 Tablet 09/10/2023 documented in this encounter Miscellaneous Notes * Telephone Encounter - Melina Mart - 09/10/2023 12:25 PM EDT Select the most appropriate reason for this telephone message: Other Who is calling (name & relationship to patient if not the patient): Patient What is needed OR why are they calling: check refill status When is this needed by: dona Where does this information need to go[facility] Additional information: please advise documented in this encounter Plan of Treatment Upcoming Encounters Date Type Department Care Team (Late st Contact Info) Description 05/07/2024 1:00 PM EST Office Visit [facility]HELY PATEL [address] [phone] Juana Bailey APRN [address] [place] [address] documented as of this encounter Goals Goal [...] Coronary atherosclerosis of unspecified type of vessel, lytton or graft documented in this encounter Discontinued Medications Medication Sig Discontinue Reason Start Date End Da te dapagliflozin propanediol (FARXIGA) 10 mg Oral TabletIndications:Stage 3b chronic kidney disease (HCC),Type 2 diabetes mellitus with hyperlipidemia (HCC),ASHD (arteriosclerotic heart disease) TAKE ONE TABLET BY MOUTH ONCE A DAY 03/06/2023 09/10/2023 documented as of this encounter Care Teams Program Analyst Relationship Specialty Start Date End Date Juana Bailey [place] [address] [place] [address] PCP - General Nurse Practitioner-Family 08/29/22 documented as of this encounter
--- OUTSIDE RECORDS SUMMARY | 2024-02-27 14:02 | XMS_ITS | Encounter Summary ---
Author Organization [facility] Address [place] [address] Care Team Providers Care Dredge Pipe Installer Name Role Phone Juana Bailey APRN Primary Care Provider [phone] Reason for Visit * Reason Comments Congestion Cough Encounter Details Date Type Department Care Team (Late st Contact Info) Description 06/26/2023 11:00 AM EDT Office Visit SEP Nati [address] [place] [phone] Radha Lozano, DO [address] [place], [place] [id number] Viral illness (Primary Dx); Sinus pressure; Cough, unspecified type; Exposure to COVID-19 virus Social History Tobacco Use Types Packs/Day Years [...] Date Recorded PHQ-2 Total Score 0 11/07/2022 [facility] of Occupat ional Health - Occupational Stress [...] place to sleep or slept in a usp (including now)? No 03/05/2023 Sexually Active Control Partners Comments Yes Male Comments No Sex and Gender Information Value Date Recorded Sex Assigned at Not on file Legal Sex Female 11:17 AM EDT Gender Identity Not on file Sexual Orientation Not on file documented as of this encounter Last Filed Vital Signs Vital Sign Reading Time Taken Comments Blood Pressure 132/80 06/26/2023 11:04 AM EDT Pulse 92 06/26/2023 11:04 AM EDT Temperature 36.8 ??C (98.2 ??F) 06/26/2023 1 1:04 AM EDT Respiratory Rate 18 06/26/2023 11:0 4 AM EDT Oxygen Saturation 98% 06/26/2023 11: 04 AM EDT Inhaled Oxygen Concentration - - Weight 112.9 kg (248 lb 12.8 oz) 2023 11:04 AM EDT Height - - Body Mass Index 41.4 11/07/2022 2:29 PM EDT documented in this [...] Refills Last Filled Start Date End Date COVID-19 antigen test (COVID-19 AT-HOME TEST) [facility] KitIndications:Coug h, unspecified type 1 Each by [facility].(Non-D rug; Combo Route) route once for 1 dose. 1 Kit 06/26/2023 06/26/2023 documented in this encounter Progress Notes * Radha Lozano, - 06/26/2023 11:00 AM EDT Assessment Diagnoses and all orders for this visit: Viral illness Sinus pressure - betamethasone acet-betamethasone sodium phos (CELESTONE) injection 12 mg - methylPREDNISolone acetate (DEPO-Medrol) injection 40 mg Cough, unspecified type - POCT TARAN SARS ANTIGEN - POCT TARAN INFLUENZA A/B - COVID-19 antigen test (COVID-19 AT-HOME TEST) [facility] Kit; 1 Each by [facility].(Non- Drug; Combo Route) route once for 1 dose. Dispense: 1 Kit; Refill: 0 Exposure to COVID-19 virus - POCT TARAN SARS ANTIGEN Discussed symptomatic care and anticipated improvement with time Reviewed the new CDC guidelines with patient about quarantine Radha Lozano DO Family Medicine 06/26/2023 Progress Note: Vitals: 06/26/23 1104 BP: 132/80 Pulse: 92 Resp: 18 Temp: 98.2 ??F (36.8 ??C) TempSrc: Temporal SpO2: 98% Weight: 248 lb 12.8 oz (112.9 kg) Body mass index is 41.4 kg/m??. SUBJECTIVE: Chief Complaint Patient presents with Congestion Cough HPI: 52 year old female who presents with cough, congestion since Saturday. Reports significant sinuspain and pressure Review of Systems Constitutional: Negative for fever. HENT: Positive for congestion, sinus pressure and sinus pain. Respiratory: Positive for cough. Gastrointestinal: Negative for diarrhea, nausea and vomiting. Neurological: Positive for headaches. All other systems reviewed and are negative. OBJECTIVE: Physical Exam Vitals reviewed. Constitutional: Appearance: Normal appearance. HENT: Head: Normocephalic and atraumatic. Nose: Right Sinus: Maxillary sinus tenderness and frontal sinus tenderness present. Left Sinus: Maxillary sinus tenderness and frontal sinus tenderness present. Eyes: Conjunctiva/sclera: Conjunctivae normal. Cardiovascular: Rate and Rhythm: Normal rate. Pulmonary: Effort: Pulmonary effort is normal. Breath sounds: Normal breath sounds. Neurological: Mental Status: She is alert. documented in this encounter Plan of Treatment Upcoming Encounters Date Type Department Care Team (Late st Contact Info) Description 05/07/2024 1:00 PM EST Office Visit [facility] [place] [address] [phone] Juana Bailey APRN [address] [place] [address] documented as of this encounter Goals Goal Patient Goal Type Associated Problems Recent Progress Patient-Stated? Author Blood Pressure < 140/90 Blood Pressure 112/70(2023 8:24 AM EDT) No Lynn, Juana, CLINICAL NURSING INSTRUCTOR Maintain a healthy diet, exercise regularly and maintain an ideal body weight General No Noelle Yeh RMA BMI (Calculated) < 30 General 38.7(10/24/19 9:24 AM EDT) No Odon, Juana, CLINICAL NURSING INSTRUCTOR Stay Tobacco Free Lifestyle No Odon, Juana, CLINICAL NURSING INSTRUCTOR HEMOGLOBIN A1C < 7.0 Result Component 6.1( 9:55 AM EDT) No Lynn, Juana, CLINICAL NURSING INSTRUCTOR documented as of this encounter Procedures Procedure Name Priority Date/Time Associated Diagnosis Comments SCANNED LABS 09/18/2023 1:06 AM EDT POCT TARAN SARS ANTIGEN Routine 06/26/2023 11:30 AM EDT Cough, unspecified type Exposure to COVID-19 virus POCT TARAN INFLUENZA A/B Routine 06/26/2023 10:18 AM EDT Cough, unspecified type documented in this encounter Results * SCANNED LABS (09/18/2023 1:06 AM EDT) 09/18/2023 1:06 AM EDT us Unknown Provider HEMATOLOGY ORDERABLES Final Res ult * POCT TARAN SARS ANTIGEN (06/26/2023 11:30 AM EDT) SARS Antigen Negative Negative SEP OFFICE Lot Number SEP OFFICE Expiration Date SEP OFFICE SeriAl # SEP OFFICE Control Line Yes YES/NO SEP OFFICE 06/26/2023 11:3 0 AM EDT us Radha Lozano DO POINT OF CARE TEST ORDERABLE S Final Result SEP OFFICE * POCT TARAN INFLUENZA A/B (06/26/2023 10:18 AM EDT) Influenza A Antigen Negative Negative 06/26/2023 11:29 AM EDT [facility] [place] Influenza B Antigen Negative Negative 06/26/2023 11:29 AM EDT [facility] [place] Swab SPECIMEN FROM NASOPHARYNGEAL STRUCTURE / Unknown 06/26/2023 10:18 AM EDT 06/26/2023 11:29 AM EDT Radha Lozano DO POINT OF CARE TEST ORDERABLE S Final Result [facility] [place] [address] [place] [address] documented in this encounter Visit Diagnoses Diagnosis Viral illness- Primary Unspecified viral infection, in conditions classified elsewhere and of unspecified site Sinus pressure Other diseases of nasal cavity and sinuses Cough, unspecified type Exposure to COVID-19 virus documented in this encounter Administered Medications Inactive Administered Medications - up to 1 most recent administrations Medication Order MAR Action Action Date Dose Rate Site betamethasone acet-betamethasone sodium phos (CELESTONE) injection 12 mg 12 mg, Intramuscular, ONCE, 1 dose, On Sat06/26/23 at 1145, Do not refrigerate, Dx: 1. Sinus pressureIndications:Sin us pressure Given 06/26/2023 11:41 AM EDT 12 mg Right Upper Outer Quadrant methylPREDNISolone acetate (DEPO-Medrol) injection 40 mg 40 mg, Intramuscular, ONCE, 1 dose, On Sat06/26/23 at 1145, Dx: 1. Sinus pressureIndications:Sin us pressure Given 06/26/2023 11:41 AM EDT 40 mg Right Upper Outer Quadrant documented in this encounter Care Teams Dredge Pipe Installer Relationship Specialty Start Date End Date Juana Bailey APRN [address] [place] [address] PCP - General Nurse Practitioner-Family 08/29/22 documented as of this encounter
--- OUTSIDE RECORDS SUMMARY | 2024-02-27 14:02 | XMS_ITS | Encounter Summary ---
Author Organization [place] [address] Care Team Providers Care Community Health Worker Name Role Phone Juana Bailey APRN Primary Care Provider [phone] Reason for Visit * Reason Comments Medication Refill Encounter Details Date Type Department Care Team (Late st Contact Info) Description 06/20/2023 Refill [facility]P [facility] [address] [place] [phone] Juana Bailey APRN [address] [place] [address] Medication Refill Social History Tobacco Use Types Packs/Day Years Used Date Smoking Tobacco: Never Smokeless Tobacco: Current Snuff Alcohol Use Standard Drinks/Week Comments Not Currently 0 (1 standard drink = 0.6 oz pur e alcohol) Overall Financial Resource Strain ([facility]) [place] r Date Recorded How hard is it for you to pa y for the very basics like food, housing, medical care, and heating? Not very hard 03/05/2023 PHQ-2 Answer Date Recorded PHQ-2 Total Score 0 11/07/2022 [facility] [place] of Occupat ional Health - Occupational Stress [...] MOUTH 2 TIMES A DAY 60 Tablet 06/20/2023 07/24/2023 documented in this encounter Miscellaneous Notes * Telephone Encounter - Fran Gaston CPhT - 06/20/2023 4:14 PM EST Flecainide - Medication Refill Protocol not available for this medication. Routed to office staff. No Dx code associated with Rx on file [facility] - 06/21/2023 documented in this encounter Plan of Treatment Upcoming Encounters Date Type Department Care Team (Late st Contact Info) Description 05/07/2024 1:00 PM EST Office Visit ASHELY PATEL [address] [phone] Juana Bailey APRN [address] [facility] [place] [address] documented as of this encounter Goals Goal [...] TABLET BY MOUTH 2 TIMES A DAY 05/20/2023 06/20/2023 documented as of this encounter Care Teams Community Health Worker Relationship Specialty Start Date End Date Juana Bailey APRN [address] [place] [address] PCP - General Nurse Practitioner-Family 08/29/22 documented as of this encounter
--- OUTSIDE RECORDS SUMMARY | 2024-02-27 14:02 | XMS_ITS | Encounter Summary ---
Author Organization [place] [address] Care Team Providers Care Lead Technologist In Cytogenetics Name Role Phone LynnJuana APRN Primary Care Provider [phone] Reason for Visit * Reason Onset Date Comments Colonoscopy 05/17/2023 Encounter Details Date Type Department Care Team (Late st Contact Info) Description 05/17/2023 Telephone SEP [facility] [address] [facility] [address] [place] [address] Nitin Morgan MD [address], [place] [id number] Colonoscopy Social History Tobacco Use Types Packs/Day Years [...] Date Recorded PHQ-2 Total Score 0 11/07/2022 [facility] [place] of Occupat ional Health - Occupational Stress [...] encounter Miscellaneous Notes * Telephone Encounter - Mini Estrada MA - 05/17/2023 11:25 AM EST Pt called to schedule colon, had her scheduled for 07/10/23 at [facility]. Pt stated she can't drink the colyte. Advised pt that d/t CKD and her ins, colyte was the only one we can use. Pt stated that she won't have the colon then. documented in this encounter Plan of Treatment Upcoming Encounters Date Type Department Care Team (Late st Contact Info) Description 05/07/2024 1:00 PM EST Office Visit [facility] [place] [facility] [address] [place] [phone] Juana Bailey APRN [address] [place] [address] documented as of this encounter Goals Goal [...] on filedocumented in this encounter Care Teams Lead Technologist In Cytogenetics Relationship Specialty Start Date End Date Juana Bailey APRN [address] [place] [address] PCP - General Nurse Practitioner-Family 08/29/22 documented as of this encounter
--- OUTSIDE RECORDS SUMMARY | 2024-02-27 14:02 | XMS_ITS | Encounter Summary ---
Author Organization [place] [address] Care Team Providers Care Service Attendant Cafeteria Name Role Phone Juana Bailey APRN Primary Care Provider [phone] Reason for Visit * Reason Onset Date Comments Other 07/15/2023 Asking ZAHRA Bailey to give her a call back at [phone] when available. Please advise. Encounter Details Date Type Department Care Team (Late st Contact Info) Description 07/15/2023 Telephone [facility]HELY PATEL [address] [place] [address] Juana Bailey APRN [address] [address] Other (Asking ZAHRA Bailey to give her a call back at [phone] when available. Please advise.) Social History Tobacco Use Types Packs/Day Years [...] Date Recorded PHQ-2 Total Score 0 11/07/2022 [facility] [place] of Occupat ional Health - Occupational Stress [...] Assessment Author No 11/07/2022 2:28 PM Alden Ploanco CCMA * Is the person blind or [...] Telephone Encounter - Sarah Crowell CCMA - 07/16/2023 9:01 AM EDT Spoke with pt. Appt made * Telephone Encounter - Scooter Porter - 07/16/2023 8:50 AM EDT Select the most appropriate reason for this telephone message: Other Who is calling (name & relationship to patient if not the patient): Patient What is needed OR why are they calling: Pt. just missed a call from ZAHRA Bailey and would like her to call her back when available next. When is this needed by: today Where does this information need to go: Office. Additional information: n/a * Telephone Encounter - Sarah Crowell CCMA - 07/16/2023 8:30 AM EDT [email or web address] * Telephone Encounter - Amy Xie RMA - 07/15/2023 9:16 AM EDT Select the most appropriate reason for this telephone message: Other Who is calling (name & relationship to patient if not the patient): Patient What is needed OR why are they calling: Asking ZAHRA Bailey to give her a call back at [phone] when available. Please advise. When is this needed by: when available Where does this information need to go: patient Additional information: patient didn't want to provide any details to the call center, only wants to speak with PCP. documented in this encounter Plan of Treatment Upcoming Encounters Date Type Department Care Team (Late st Contact Info) Description 05/07/2024 1:00 PM EST Office Visit [facility] [place] [facility] [address] [phone] Juana Bailey APRN [address] [place] [address] documented as of this encounter Goals Goal [...] on filedocumented in this encounter Care Teams Service Attendant Cafeteria Relationship Specialty Start Date End Date Juana Bailey APRN [address] [place] [address] PCP - General Nurse Practitioner-Family 08/29/22 documented as of this encounter
--- OUTSIDE RECORDS SUMMARY | 2024-02-27 14:02 | XMS_ITS | Encounter Summary ---
Author Organization [place] [address] Care Team Providers Care Folding Rules Printing Machine Operator Name Role Phone Juana Bailey APRN Primary Care Provider [phone] Reason for Visit * Reason Comments Medication Refill Encounter Details Date Type Department Care Team (Late st Contact Info) Description 09/04/2023 Refill SEP Nati [address] [place] [phone] Juana Bailey APRN [address] [place] [address] Medication Refill Social History Tobacco Use Types Packs/Day Years Used Date Smoking Tobacco: Never Smokeless Tobacco: Current Snuff Alcohol Use Standard Drinks/Week Comments Not Currently 0 (1 standard drink = 0.6 oz pur e alcohol) Overall Financial Resource Strain ([facility]) [place] r Date Recorded How hard is it for you to pa y for the very basics like food, housing, medical care, and heating? Not very hard 03/05/2023 PHQ-2 Answer Date Recorded PHQ-2 Total Score 0 11/07/2022 [facility] [place] of Occupat ional Health - Occupational Stress [...] BY MOUTH ONCE A DAY 30 Tablet 09/05/2023 4 ergocalciferol (DRISDOL) 1,250 mcg (50,000 unit) Oral Capsule TAKE 1 CAPSULE BY MOUTH ONE TIME PER WEEK 4 Capsule 09/05/2023 4 documented in this encounter Plan of Treatment Upcoming Encounters Date Type Department Care Team (Late st Contact Info) Description 05/07/2024 1:00 PM EST Office Visit ASHELY PATEL [address] [phone] Juana Bailey APRN [address] [place] [address] documented as of this encounter Goals Goal [...] Bailey APRN Stay Tobacco Free Lifestyle No uJana Bailey APRN HEMOGLOBIN A1C < 7.0 Result Component 6.1( 9:55 AM EDT) No Juana Bailey APRN documented as of this encounter Visit Diagnoses Not on filedocumented in this encounter Discontinued Medications Medication Sig Discontinue Reason Start Date End Da te loratadine (CLARITIN) 10 mg Oral Tablet TAKE ONE TABLET BY MOUTH ONCE A DAY 08/05/2023 09/05/2023 ergocalciferol (DRISDOL) 1,250 mcg (50,000 unit) Oral Capsule TAKE 1 CAPSULE BY MOUTH ONE TIME PER WEEK 08/05/2023 09/05/2023 documented as of this encounter Care Teams Folding Rules Printing Machine Operator Relationship Specialty Start Date End Date Juana Bailey APRN [address] [place], [place] [address] PCP - General Nurse Practitioner-Family 08/29/22 documented as of this encounter
--- OUTSIDE RECORDS SUMMARY | 2024-02-27 14:02 | XMS_ITS | Encounter Summary ---
Author Organization [place] [address] Care Team Providers Care Survey Supervisor Name Role Phone Juana Bailey APRN Primary Care Provider [phone] Encounter Details Date Type Department Care Team (Late st Contact Info) Description 05/28/2023 Orders Only SEP Nati [address] [place] [phone] Juana Baiely APRN [address] [place] [address] Social History Tobacco Use Types Packs/Day Years Used Date Smoking Tobacco: Never Smokeless Tobacco: Current Snuff Alcohol Use Standard Drinks/Week Comments Not Currently 0 (1 standard drink = 0.6 oz pur e alcohol) Overall Financial Resource Strain ([facility]) [place] r Date Recorded How hard is it for you to pa y for the very basics like food, housing, medical care, and heating? Not very hard 03/05/2023 PHQ-2 Answer Date Recorded PHQ-2 Total Score 0 11/07/2022 [facility] [place] of Occupat ional Health - Occupational Stress [...] place to sleep or slept in a nursing home (including now)? No 03/05/2023 Sexually Active [...] 11/07/2022 2:28 PM EDAlden Al CCMA * Because of a [...] Refills Last Filled Start Date End Date metroNIDAZOLE (FLAGYL) 500 mg Oral Tablet Take 1 Tablet by mouth 2 times daily for 7 days. 14 Tablet 05/28/2023 06/04/2023 documented in this encounter Plan of Treatment Upcoming Encounters Date Type Department Care Team (Late st Contact Info) Description 05/07/2024 1:00 PM EST Office Visit ASHELY [place] [address] [place] [phone] Juana Bailey APRN [address] [facility] [place] [address] documented as of this encounter Goals Goal [...] on filedocumented in this encounter Care Teams Survey Supervisor Relationship Specialty Start Date End Date Juana Bailey APRN [address] [facility] [place] [address] PCP - General Nurse Practitioner-Family 08/29/22 documented as of this encounter
--- OUTSIDE RECORDS SUMMARY | 2024-02-27 14:02 | XMS_ITS | Encounter Summary ---
Author Organization [place] [address] Care Team Providers Care Location Man Name Role Phone Juana Bailey APRN Primary Care Provider [phone] Reason for Visit * Reason Comments Medication Refill Encounter Details Date Type Department Care Team (Late st Contact Info) Description 05/20/2023 Refill SEP Nati [address] [place] [phone] Juana Bailey APRN [address] [place] [address] Medication Refill Social History Tobacco Use Types [...] Date Recorded PHQ-2 Total Score 0 11/07/2022 [facility] [place] of Occupat ional Health - Occupational Stress [...] MOUTH 2 TIMES A DAY 60 Tablet 05/20/2023 06/20/2023 documented in this encounter Plan of Treatment Upcoming Encounters Date Type Department Care Team (Late st Contact Info) Description 05/07/2024 1:00 PM EST Office Visit ASHELY PATEL [address] [place] [phone] Juana Bailey APRN [address] [facility] [place] [address] documented as of this encounter Goals Goal [...] Bailey APRN Stay Tobacco Free Lifestyle No Jauna Bailey APRN HEMOGLOBIN A1C < 7.0 Result Component 6.1( 9:55 AM EDT) No Juana Bailey APRN documented as of this encounter Visit Diagnoses Not on filedocumented in this encounter Discontinued Medications Medication Sig Discontinue Reason Start Date End Da te flecainide (TAMBOCOR) 50 mg Oral Tablet TAKE ONE TABLET BY MOUTH 2 TIMES A DAY 04/23/202305/20/2023 documented as of this encounter Care Teams Location Man Relationship Specialty Start Date End Date Juana Bailey APRN [address] [place] [address] PCP - General Nurse Practitioner-Family 08/29/22 documented as of this encounter
--- OUTSIDE RECORDS SUMMARY | 2024-02-27 14:02 | XMS_ITS | Encounter Summary ---
Author Organization [place] [address] Care Team Providers Care Grievance Manager Name Role Phone Juana Bailey APRN Primary Care Provider [phone] Reason for Visit * Reason Comments Medication Refill Encounter Details Date Type Department Care Team (Late st Contact Info) Description 04/10/2023 Refill [facility]P [facility] [address] [place] [address] Juana Bailey APRN [address] [facility] [address] Medication Refill Social History Tobacco Use Types Packs/Day Years Used Date Smoking Tobacco: Never Smokeless Tobacco: Current Snuff Alcohol Use Standard Drinks/Week Comments Not Currently 0 (1 standard drink = 0.6 oz pur e alcohol) Overall Financial Resource Strain ([facility]) Answe r Date Recorded How hard is it for you to pa y for the very basics like food, housing, medical care, and heating? Not very hard 03/05/2023 PHQ-2 Answer Date Recorded PHQ-2 Total Score 0 11/07/2022 [facility] of Occupat ional Health - [...] 11/07/2022 2:28 PM EDAlden Al CCMA documented as of this [...] BY MOUTH ONCE A DAY 30 Tablet 3 04/10/2023 08/05/2023 documented in this encounter Miscellaneous Notes * Telephone Encounter - Fran Gaston CPhT - 04/10/2023 2:16 PM EST Loratadine - Medication Refill Protocol not available for this medication. Routed to office staff. No Dx code associated with Rx on file [facility] - 06/20/2023 documented in this encounter Plan of Treatment Upcoming Encounters Date Type Department Care Team (Late st Contact Info) Description 05/07/2024 1:00 PM EST Office Visit [facility] [address] [phone] Juana Bailey APRN [address] [place] [address] documented as of this encounter Goals Goal [...] TABLET BY MOUTH ONCE A DAY 03/06/2023 04/10/2023 documented as of this encounter Care Teams Grievance Manager Relationship Specialty Start Date End Date Juana Bailey APRN [address] [place], [place] [address] PCP - General Nurse Practitioner-Family 08/29/22 documented as of this encounter
--- OUTSIDE RECORDS SUMMARY | 2024-02-27 14:02 | XMS_ITS | Encounter Summary ---
Author Organization [place] [address] Care Team Providers Care Airport Attendant Name Role Phone Juana Bailey APRN Primary Care Provider [phone] Reason for Visit * Reason Comments Medication Refill Encounter Details Date Type Department Care Team (Late st Contact Info) Description 07/23/2023 Refill SEP Nati [address] [place] [address] Juana Bailey APRN [address] [place] [address] Medication Refill Social History Tobacco Use Types Packs/Day Years Used Date Smoking Tobacco: Never Smokeless Tobacco: Current Snuff Alcohol Use Standard Drinks/Week Comments Not Currently 0 (1 standard drink = 0.6 oz pur e alcohol) Overall Financial Resource Strain ([facility]) [place] r Date Recorded How hard is it for you to pa y for the very basics like food, housing, medical care, and heating? Not very hard 03/05/2023 PHQ-2 Answer Date Recorded PHQ-2 Total Score 0 11/07/2022 [facility] of Occupat ional Health - Occupational Stress [...] place to sleep or slept in a correction (including now)? No 03/05/2023 Sexually Active Control [...] MOUTH 2 TIMES A DAY 60 Tablet 07/24/2023 08/27/2023 documented in this encounter Plan of Treatment Upcoming Encounters Date Type Department Care Team (Late st Contact Info) Description 05/07/2024 1:00 PM EST Office Visit [facility] [address] [place] [phone] Juana Bailey APRN [address] [facility] [place] [address] documented as of this encounter Goals Goal [...] TABLET BY MOUTH 2 TIMES A DAY 06/20/202307/24/2023 documented as of this encounter Care Teams Airport Attendant Relationship Specialty Start Date End Date Juana Bailey APRN [address] [place] [address] PCP - General Nurse Practitioner-Family 08/29/22 documented as of this encounter
--- OUTSIDE RECORDS SUMMARY | 2024-02-27 14:02 | XMS_ITS | Encounter Summary ---
Author Organization [place] [address] Care Team Providers Care Tour Consultant Name Role Phone Juana Bailey APRN Primary Care Provider [phone] Encounter Details Date Type Department Care Team (Late st Contact Info) Description 04/02/2023 Orders Only SEP Nati [address] [place] [address] Sarah Crowell, [facility] Social History Tobacco Use Types Packs/Day Years [...] Recorded PHQ-2 Total Score 0 11/07/2022 [facility] of Occupat ional Health - Occupational Stress [...] Refills Last Filled Start Date End Date NATROBA 0.9 % Top Suspension Apply 120 mL topically once for 1 dose. 120 mL 04/02/2023 3 documented in this encounter Plan of Treatment Upcoming Encounters Date Type Department Care Team (Late st Contact Info) Description 05/07/2024 1:00 PM EST Office Visit [facility] [place] [facility] [address] [phone] Juana Bailey APRN [address] [place] [address] documented as of this encounter Goals Goal [...] on filedocumented in this encounter Care Teams Tour Consultant Relationship Specialty Start Date End Date Juana Bailey APRN [address] [place] [address] PCP - General Nurse Practitioner-Family 08/29/22 documented as of this encounter
--- OUTSIDE RECORDS SUMMARY | 2024-02-27 14:02 | XMS_ITS | Encounter Summary ---
Author Organization [place] [address] Care Team Providers Care Visually Impaired Teacher Name Role Phone Juana Bailey APRN Primary Care Provider [phone] Reason for Visit * Reason Onset Date Comments Symptom Call 06/28/2023 multiple sx Encounter Details Date Type Department Care Team (Late st Contact Info) Description 06/28/2023 Telephone [facility] [place] [address] [place] [address] Juana Bailey APRN [address] [facility] [place] [address] Symptom Call (multiple sx ) Social History Tobacco Use Types Packs/Day [...] Date Recorded PHQ-2 Total Score 0 11/07/2022 [facility] of Occupat ional Health - Occupational Stress [...] Refills Last Filled Start Date End Date amoxicillin-clavul anate (AUGMENTIN) 875-125 mg Oral Tablet Take 1 Tablet by mouth 2 times daily for 10 days. 20 Tablet 06/28/2023 07/08/2023 documented in this encounter Miscellaneous Notes * Telephone Encounter - Juana Bailey APRN - 06/28/2023 10:18 AM EDT Recommend some plain mucinex for congestion Sent in course of augmentin (antibiotic) to take twice per day. * Telephone Encounter - Rosalba Burgess RMA - 06/28/2023 9:19 AM EDT Can something be called in seen dr ku 2 days ago * Telephone Encounter - Preeti Figueroa - 06/28/2023 8:52 AM EDT Select the most appropriate reason for this telephone message: Symptoms Call Who is reporting the symptoms: Patient What symptom(s) is the patient experiencing: coughing, headaches which causes chest congestion / tightness How long have symptoms been present: 4 day(s) ago Has the patient been seen for this: Yes was seen in the office 06/25 and have had neg covid test Has the patient tried anything to relieve the symptoms and did it help: Yes dyquil and nyquil If pain, what level on scale 1-10 (10 being the greatest): at night 4-5 Desired Outcome: would like something sent to the pharmacy . had her daughter with her at the appt and she tested positive for covid Pharmacy & Location:[facility] Additional Notes: documented in this encounter Plan of Treatment Upcoming Encounters Date Type Department Care Team (Late st Contact Info) Description 05/07/2024 1:00 PM EST Office Visit [facility] [place] [facility] [address] [phone] Juana Bailey APRN [address] [place] [address] documented as of this encounter Goals Goal [...] on filedocumented in this encounter Care Teams Visually Impaired Teacher Relationship Specialty Start Date End Date Juana Bailey APRN [address] [address] PCP - General Nurse Practitioner-Family 08/29/22 documented as of this encounter
--- OUTSIDE RECORDS SUMMARY | 2024-02-27 14:02 | XMS_ITS | Encounter Summary ---
Author Organization [place] [address] Care Team Providers Care Deputy Coroner Name Role Phone Juana Bailey APRN Primary Care Provider [phone] Reason for Visit * Reason Comments Medication Question How long should she stay on 0.5? Has been on this dose for 2 months Anxiety left after 2 4 yrs Encounter Details Date Type Department Care Team (Latest Contact Info) Description 03/21/2023 8:00 AM EST Office Visit ASHELY PATEL [address] [place] [phone] Juana Bailey APRN [address] [place] [address] Type 2 diabetes mellitus with hyperlipidemia (HCC) (HCC) (Primary Dx); Stage 3b chronic kidney disease (HCC); Elevated uric acid in blood; Situational anxiety; Obesity, Class III, BMI 40-49.9 (morbid obesity) (HCC) Social History Tobacco Use Types Packs/Day Years [...] Date Recorded PHQ-2 Total Score 0 11/07/2022 [facility] [place] of Occupat ional Health - Occupational Stress [...] place to sleep or slept in a residential (including now)? No 03/05/2023 Sexually Active Control Partners Comments Yes Male Comments No Sex and Gender Information Value Date Recorded Sex Assigned at Not on file Legal Sex Female 11:17 AM EDT Gender Identity Not on file Sexual Orientation Not on file documented as of this encounter Last Filed Vital Signs Vital Sign Reading Time Taken Comments Blood Pressure 122/78 03/21/2023 8:03 AM EST Pulse 84 03/21/2023 8:03 AM EST Temperature 36.6 ??C (97.9 ??F) 03/21/2023 8:03 AM ES T Respiratory Rate 18 03/21/2023 8:03 AM EST Oxygen Saturation 97% 03/21/2023 8:03 AM EST Inhaled Oxygen Concentration - - Weight 122.5 kg (270 lb) 03/21/2023 8:03 AM EST Height - - Body Mass Index 44.93 11/07/2022 2:29 PM EDT documented in this [...] Refills Last Filled Start Date End Date busPIRone (BUSPAR) 10 mg Oral TabletIndications:S ituational anxiety Take 1 Tablet by mouth 2 times daily as needed. 60 Tablet 2 3 05/22/19 24 semaglutide (OZEMPIC) 1 mg/dose (4 mg/3 mL) SubQ Pen InjectorIndications :Type 2 diabetes mellitus with hyperlipidemia (HCC) Subcutaneous (Inject under the skin) 1 mg once a week. 9 mL 3 3 06/21/19 24 documented in this encounter Progress Notes * Juana Bailey APRN - 03/21/2023 8:00 AM EST Assessment Diagnoses and all orders for this visit: Type 2 diabetes mellitus with hyperlipidemia (HCC) ([facility]) (Chronic) Overview: Lab Results Component Value Date HGBA1C 7.6 (H) 10/23/2022 Metformin intolerance. on farxiga for dual mgmt of CKD and ozempic. Statin intolerance. ACEi/ARB held d/t CKD Unable to get repatha covered unless confirmed vascular disease Orders: - COMPREHENSIVE METABOLIC PANEL; Future - LIPID PANEL REFLEX; Future - HEMOGLOBIN A1C; Future - semaglutide (OZEMPIC) 1 mg/dose (4 mg/3 mL) SubQ Pen Injector; Subcutaneous (Inject under the skin) 1 mg once a week. Dispense: 9 mL; Refill: 3 Stage 3b chronic kidney disease (HCC) (Chronic) Overview: 06/2022 GFR 31 Followed by nephrology, on nephrocap Recommend addition of farxiga Orders: - COMPREHENSIVE METABOLIC PANEL; Future Elevated uric acid in blood Overview: On allopurinol Orders: - COMPREHENSIVE METABOLIC PANEL; Future - URIC ACID; Future Situational anxiety - busPIRone (BUSPAR) 10 mg Oral Tablet; Take 1 Tablet by mouth 2 times daily as needed. Dispense: 60 Tablet; Refill: 2 Obesity, Class III, BMI 40-49.9 (morbid obesity) (HCC) (Chronic) Overview: Wt Readings from Last 3 Encounters: 03/21/23 270 lb (122.5 kg) 03/05/23 275 lb (124.7 kg) 02/20/23 276 lb 9.6 oz (125.5 kg) Successful weight loss on GLP, diet and exercise. Progress Note: Vitals: 03/21/23 0803 BP: 122/78 Pulse: 84 Resp: 18 Temp: 97.9 ??F (36.6 ??C) TempSrc: Forehead SpO2: 97% Weight: 270 lb (122.5 kg) Body mass index is 44.93 kg/m??. SUBJECTIVE: Chief Complaint Patient presents with Medication Question How long should she stay on 0.5? Has been on this dose for 2 months Anxiety left after 24 yrs HPI: Diabetes: Jane following up today for diabetes. Current symptoms/problems include none. Current monitoring regimen: none Home blood sugar records: not monitoring BS Any episodes of hypoglycemia? no On insulin? No Weight trend: Body mass index is 44.93 kg/m??. Wt Readings from Last 3 Encounters: 03/21/23 270 lb (122.5 kg) 03/05/23 275 lb (124.7 kg) 02/20/23 276 lb 9.6 oz (125.5 kg) A1c trend: Lab Results Component Value Date HGBA1C 7.6 (H) 10/23/2022 Renal trend: No results found for: GFRAFRAM No results found for: GFRNONAFRAM Lab Results Component Value Date GFRCKDEPI 43 (L) 10/23/2022 Lipid trend: Lab Results Component Value Date LDLCALC 127 (H) 10/23/2022 Hyperlipidemia: Last Lipid and liver panel has been reviewed. Current cholesterol goals discussed with patient. Thepatient is on a lipid lowering agent. The patient currently is not on a statin due to statin myalgias No complaints of side effects from medication. The patient is not having issues maintaining compliance with the previously outlined care plan. The patient does not report significant side effects of current medications/treatments. Diet has been reviewed with patient. Acute concerns Recent separation from spouse of many years. Having increasing anxiety, tearful. Review of Systems Constitutional: Negative for fever. Respiratory: Negative for cough, shortness of breath and wheezing. Cardiovascular: Negative for chest pain, palpitations and leg swelling. Gastrointestinal: Negative for abdominal pain, constipation, diarrhea and vomiting. Musculoskeletal: Positive for arthralgias, back pain and myalgias. Skin: Negative for rash. Psychiatric/Behavioral: Positive for decreased concentration and sleep disturbance. The patient is nervous/anxious. OBJECTIVE: Physical Exam Constitutional: Appearance: She is obese. Cardiovascular: Rate and Rhythm: Normal rate and regular rhythm. Heart sounds: Normal heart sounds. Pulmonary: Effort: Pulmonary effort is normal. Breath sounds: Normal breath sounds. Neurological: Mental Status: She is alert and oriented to person, place, and time. * Liz Yanes - 03/21/2023 8:00 AM EST Venipuncture in the left antecubital vein with 21 gauge needle, length 1 1/2 inch. documented in this encounter Plan of Treatment Upcoming Encounters Date Type Department Care Team (Late st Contact Info) Description 05/07/2024 1:00 PM EST Office Visit [facility] [place] [facility] [address] [place] [phone] Juana Bailey APRN [address] [place] [address] documented as of this encounter Goals Goal [...] Procedure Name Priority Date/Time Associated Diagnosis Comments LIPID PANEL REFLEX Routine 03/21/2023 8: 31 AM EST Type 2 diabetes mellitus with hyperlipidemia (HCC) (HCC) URIC ACID Routine 03/21/2023 8:31 AM EST Elevated uric acid in blood HEMOGLOBIN A1C Routine 03/21/2023 8:31 AM EST Type 2 diabetes mellitus with hyperlipidemia (HCC) (HCC) COMPREHENSIVE METABOLIC PANEL Routine 03/21/2023 8:31 AM EST Type 2 diabetes mellitus with hyperlipidemia (HCC) (HCC) Stage 3b chronic kidney disease (HCC) Elevated uric acid in blood documented in this encounter Results * URIC ACID (03/21/2023 8:31 AM EST) Uric Acid 3.8 2.4 - 5.7 mg/dL 03/21/2023 3:26 PM EST PREFERRED [employer] Blood VENOUS BLOOD / Unknown Venipuncture / Unknown 03/21/2023 8:31 AM EST 03/21/2023 8:31 AM EST Juana Elysian ASSISTANT EXECUTIVE HOUSEKEEPER CHEMISTRY ORDERABLES Final Result Performing Organization Address [facility] de Phone Number PREFERRED [employer] [facility] [address] [facility] , [place] [address] * (ABNORMAL) HEMOGLOBIN A1C (03/21/2023 8:31 AM EST) Hgb A1C 6.9(H) 4.2 - 5.6 % 03/21/2023 2:38 PM EST [facility] [employer] Est. Avg Glucose 151 mg/dL 03/21/2023 2:38 PM EST [facility] Blood VENOUS BLOOD / Unknown Venipuncture / Unknown 03/21/2023 8:31 AM EST 03/21/2023 8:31 AM EST Narrative [facility] - 03/21/2023 2:38 PM EST REFERENCE RANGE: Normal: 4.0-5.6% Pre-diabetes: 5.7-6.4% Provisional diagnosis of diabetes: >6.4% Hgb F>10% and anything which shortens red cell survival, such as hemolytic anemia, or unstable hemoglobin variants such as HbSS, HbSC, or HbCC, will lower the HbA1c value associated with a given level of glycemic control. ? Juana Bailey ASSISTANT EXECUTIVE HOUSEKEEPER CHEMISTRY ORDERABLES Final Result Performing Organization Address [facility] Co de Phone Number [facility] [employer] [facility] [address] [facility] , [address] [place] [phone] * (ABNORMAL) LIPID PANEL REFLEX (03/21/2023 8:31 AM EST) Cholesterol 203(H) <200 mg/dL 03/21/2023 3:26 PM EST [employer] Comment: < 200 ?Desirable 200 - 239 ? Borderline High >= 240 ?High Triglyceride 182(H) <150 mg/dL 03/21/2023 3:26 PM EST [facility] Comment: < 150 ? Normal 150 - 199 ?Borderline High 200 - 499 ?High ??>= 500 ? Very High HDL 44 >=40 mg/dL 03/21/2023 3:26 PM EST [facility] Comment: ??> 60 ?Optimal 40 - 60 ?Acceptable ?? < 40 ?Low LDL Calculated 127(H) <100 mg/dL 03/21/2023 3:26 PM EST [facility] Non-HDL-C Calculated 159(H) <=129 mg/dL 03/21/2023 3:26 PM EST [facility] Comment: <130 ?Desirable 130-159 Above Desirable 160-189 Borderline High 190-219 High >= 220 ??Very High Fasting Specimen? Yes None 023 3:26 PM EST [facility] Blood VENOUS BLOOD / Unknown Venipuncture / Unknown 03/21/2023 8:31 AM EST 03/21/2023 8:31 AM EST Juana Bailey APRN CHEMISTRY ORDERABLES Final Result Performing Organization Address City/State/[facility] Co de Phone Number [facility] [address] [facility] , [place] [address] [facility] [address] [place] [address] * (ABNORMAL) COMPREHENSIVE METABOLIC PANEL (03/21/2023 8:31 AM EST) Sodium 136 136 - 145 mmol/L 03/21/2023 3:26 PM EST [facility] Potassium 3.2(L) 3.5 - 5.0 mmol/L 03/21/2023 3:26 PM EST [facility] Chloride 96(L) 98 - 107 mmol/L 03/21/2023 3:26 PM EST [facility] Total CO2 31(H) 22 - 29 mmol/L 03/21/2023 3:26 PM EST [facility] Anion Gap 9 7 - 16 mmol/L 03/21/2023 3:26 PM EST [facility] Calcium 10.3 8.6 - 10.4 mg/dL 03/21/2023 3:26 PM EST [facility] Glucose Lvl 130(H) 74 - 100 mg/dL 03/21/2023 3:26 PM EST [facility] BUN 24(H) 6 - 20 mg/dL 03/21/2023 3:26 PM EST [facility] Creatinine 1.02 0.51 - 1.30 mg/dL 03/21/2023 3:26 PM EST [facility] Albumin 4.3 3.5 - 5.2 gm/dL 03/21/2023 3:26 PM EST [facility] Total Protein 7.7 6.4 - 8.3 gm/dL 03/21/2023 3:26 PM EST [facility] Bili Total 0.7 0.2 - 1.3 mg/dL 03/21/2023 3:26 PM EST [facility] ALT 43(H) <=41 U/L 03/21/2023 3:26 PM EST [facility] AST 36 <=40 U/L 03/21/2023 3:26 PM EST [facility] Alk Phos 117 36 - 123 U/L 03/21/2023 3:26 PM EST [facility] eGFR (CKD-EPIcr 2020) 65 >=60 mL/min/1.7 3 m2 03/21/2023 3:26 PM EST [facility] Comment:Estimated GFR was ca lculated using the CKD-EPIcr (2020) equation refit without race. The equation is recommended by the National Kidney Foundation - [employer] Nephrology Task Force. Blood VENOUS BLOOD / Unknown Venipuncture / Unknown 03/21/2023 8:31 AM EST 03/21/2023 8:31 AM EST Juana Bailey ASSISTANT EXECUTIVE HOUSEKEEPER CHEMISTRY ORDERABLES Final Result [facility] [employer] [facility] [address] [facility] [address] [place] [address] [facility] [address] [place] [id number] documented in this encounter Visit Diagnoses Diagnosis Type 2 diabetes mellitus with hyperlipidemia (HCC)- Primary Stage 3b chronic kidney disease (HCC) Elevated uric acid in blood Other abnormal blood chemistry Situational anxiety Other anxiety states Obesity, Class III, BMI 40-49.9 (morbid obesity) (HCC) Morbid obesity documented in this encounter Discontinued Medications Medication Sig Discontinue Reason Start Date End Da te semaglutide (OZEMPIC) 0.25 mg or 0.5 mg (2 mg/3 mL) SubQ Pen InjectorIndications:Typ e 2 diabetes mellitus with hyperlipidemia (HCC) Subcutaneous (Inject under the skin) 0.5 mg once a week. Dose adjustment 02/20/2023 03/21/2023 documented as of this encounter Care Teams Deputy Coroner Relationship Specialty Start Date End Date Juana Bailey [place] [address] [place] [address] PCP - General Nurse Practitioner-Family 08/29/22 documented as of this encounter
--- OUTSIDE RECORDS SUMMARY | 2024-02-27 14:02 | XMS_ITS | Encounter Summary ---
Author Organization [place] [address] Care Team Providers Care Unemployment Specialist Name Role Phone Juana Bailey APRN Primary Care Provider [phone] Reason for Visit * Reason Onset Date Comments Medication Management 06/24/2023 Needs rx r esent Encounter Details Date Type Department Care Team (Late Contact Info) Description 06/24/2023 Telephone [facility] [address] [place] [address] Juana Bailey APRN [address] [employer] [facility] [place] [place] [address] Medication Management (Needs rx resent) Social History Tobacco Use Types Packs/Day Years [...] Date Recorded PHQ-2 Total Score 0 11/07/2022 [facility] [place] of Occupat ional Health - Occupational Stress [...] place to sleep or slept in a snf (including now)? No 03/05/2023 Sexually Active Control [...] Author No 11/07/2022 2:28 PM EDT Alden Croewll CCMA documented in this encounter Ordered Prescriptions Prescription Sig Dispense Quantity Refills Last Filled Start Date End Date semaglutide (OZEMPIC) 2 mg/dose (8 mg/3 mL) SubQ Pen InjectorIndications :Type 2 diabetes mellitus with hyperlipidemia (HCC) Subcutaneous (Inject under the skin) 2 mg once a week. 3 mL 11 01/17/20 documented in this encounter Miscellaneous Notes * Telephone Encounter - Nate Negron CCMA - 06/24/2023 4:46 PM EDT Select the most appropriate reason for this telephone message: Medication Management/Problem Who is calling? Patient What medication(s) do you have concerns about: Disp Refills Start End semaglutide (OZEMPIC) 2 mg/dose (8 mg/3 mL) SubQ Pen Injector 3 mL 11 06/21/2023 -- Sig - Route: Subcutaneous (Inject under the skin) 2 mg once a week. - Subcutaneous Sent to pharmacy as: Ozempic 2 mg/dose (8 mg/3 mL) subcutaneous pen injector (semaglutide) Prescribing provider: Ken[place] What are your concerns/request: pharmacy states this was cancelled and it needs to be resent. Desired outcome: Other resend to pharmacy Last appointment date: 06/20 Pharmacy: [facility] Additional notes: na documented in this encounter Plan of Treatment Upcoming Encounters Date Type Department Care Team (Late st Contact Info) Description 05/07/2024 1:00 PM EST Office Visit [facility] [place] [facility] [address] [place] [address] Juana Bailey APRN [address] [facility] [place] [address] documented as of this encounter Goals Goal [...] skin) 2 mg once a week. Reorder 06/21/2023 06/24/2023 documented as of this encounter Care Teams Unemployment Specialist Relationship Specialty Start Date End Date Juana Bailey APRN [address] [place] [address] [place] [address] PCP - General Nurse Practitioner-Family 08/29/22 documented as of this encounter
--- OUTSIDE RECORDS SUMMARY | 2024-02-27 14:02 | XMS_ITS | Encounter Summary ---
Author Organization [place] [address] Care Team Providers Care Electronic Device Monitor Name Role Phone Juana Bailey APRN Primary Care Provider [phone] Reason for Visit * Reason Onset Date Comments Results 05/24/2023 Lab Syphilis,HIV ,Acute Hepatitis Encounter Details Date Type Department Care Team (Late Contact Info) Description 05/24/2023 Telephone SEP Nati [address] [place] [address] Juana Bailey APRN [address] [employer] [facility] [place] [address] Results (Lab Syphilis,HIV,Acute Hepatitis) Social History Tobacco Use Types Packs/Day Years [...] Date Recorded PHQ-2 Total Score 0 11/07/2022 [facility] [place] of Occupat ional Health - Occupational Stress [...] encounter Miscellaneous Notes * Telephone Encounter - Tyrone Major RMA - 05/24/2023 10:10 AM EST Select the most appropriate reason for this telephone message: Patient Calling for Results Patient called for results on Lab Syphilis,HIV,Acute Hepatitis Which Provider ordered the test? Juana Bailey APRN Date of test: 05/22/23 Advised patient of: OK result. Patient Instructions/ Questions: NA Medications Ordered/Pended (if yes, list medication): No Medications/Orders Needed: No Pharmacy Location Verified: No Other: Please put in the patient results note that she is aware of the following results No STI or HPV Labs all ok documented in this encounter Plan of Treatment Upcoming Encounters Date Type Department Care Team (Late st Contact Info) Description 05/07/2024 1:00 PM EST Office Visit [facility]HELY [facility] [address] [phone] Juana Bailey APRN [address] [place] [place] [address] documented as of this encounter Goals Goal [...] on filedocumented in this encounter Care Teams Electronic Device Monitor Relationship Specialty Start Date End Date Juana Bailey APRN [address] [place] [address] PCP - General Nurse Practitioner-Family 08/29/22 documented as of this encounter
--- OUTSIDE RECORDS SUMMARY | 2024-02-27 14:02 | XMS_ITS | Encounter Summary ---
Author Organization [place] [address] Care Team Providers Care System Developer Associate Manager Name Role Phone Juana Bailey APRN Primary Care Provider [phone] Reason for Visit * Reason Comments Medication Refill Encounter Details Date Type Department Care Team (Late st Contact Info) Description 04/04/2023 Refill SEP Nati [address] [place] [address] Juana Bailey APRN [address] [place] [address] Medication Refill Social History Tobacco Use Types Packs/Day Years Used Date Smoking Tobacco: Never Smokeless Tobacco: Current Snuff Alcohol Use Standard Drinks/Week Comments Not Currently 0 (1 standard drink = 0.6 oz pur e alcohol) Overall Financial Resource Strain ([facility]) Answe r Date Recorded How hard is it for you to pa y for the very basics like food, housing, medical care, and heating? Not very hard 03/05/2023 PHQ-2 Answer Date Recorded PHQ-2 Total Score 0 11/07/2022 [facility] [place] of Occupat ional Health - Occupational Stress [...] MOUTH ONE TIME PER WEEK 4 Capsule 3 04/04/2023 4 documented in this encounter Plan of Treatment Upcoming Encounters Date Type Department Care Team (Late st Contact Info) Description 05/07/2024 1:00 PM EST Office Visit ASHELY PATEL [address] [place] [phone] Juana Bailey APRN [address] [place] [address] documented as of this encounter Goals Goal [...] CAPSULE BY MOUTH ONE TIME PER WEEK 03/06/2023 04/04/2023 documented as of this encounter Care Teams System Developer Associate Manager Relationship Specialty Start Date End Date Juana Bailey APRN [address] [place] [address] PCP - General Nurse Practitioner-Family 08/29/22 documented as of this encounter
--- OUTSIDE RECORDS SUMMARY | 2024-02-27 14:02 | XMS_ITS | Encounter Summary ---
Author Organization [facility] [place] [address] Care Team Providers Care Director Women Name Role Phone Juana Bailey APRN Primary Care Provider [phone] Reason for Visit * Reason Comments Diabetes Encounter Details Date Type Department Care Team (Latest Contact Info) Description 06/21/2023 9:15 AM EST Office Visit [facility] [place] [address] [place] [phone] Juana Bailey APRN [address] [place] [address] Type 2 diabetes mellitus with hyperlipidemia (HCC) (Primary Dx); Elevated uric acid in blood; Stage 3b chronic kidney disease (HCC); Obesity, Class III, BMI 40-49.9 (morbid obesity) [...] Date Recorded PHQ-2 Total Score 0 11/07/2022 [facility] [place] of Occupat ional Health - Occupational Stress [...] Sign Reading Time Taken Comments Blood Pressure 112/78 06/21/2023 9:14 AM EST Pulse 83 06/21/2023 9:14 AM EST Temperature 36.5 ??C (97.7 ??F) 06/21/2023 9:14 AM ES T Respiratory Rate 18 06/21/2023 9:14 AM EST Oxygen Saturation 97% 06/21/2023 9:14 AM EST Inhaled Oxygen Concentration - - Weight 114.8 kg (253 lb) 06/21/2023 9:14 AM EST Height - - Body Mass Index 42.1 11/07/2022 2:29 PM EDT documented in this encounter Functional Status * Is the person deaf or does he/she have serious difficulty hearing? Answer Date of Assessment Author No 11/07/2022 2:28 PM EDT Aldne Crowell CCMA * Is the person blind [...] mg once a week. 3 mL 11 4 06/24/19 24 documented in this encounter Progress Notes * Juana Bailey APRN - 06/21/2023 9:31 AM ESTAssociated Problem(s): Stage 3b chronic kidney disease (HCC) Sig improvement with weight loss, diabetes control and sglt2, continue same. * Juana Bailey APRN - 06/21/2023 9:15 AM EST Assessment Diagnoses and all orders for this visit: Type 2 diabetes mellitus with hyperlipidemia (HCC) (Chronic) Overview: Lab Results Component Value Date HGBA1C 6.9 (H) 03/21/2023 HGBA1C 7.6 (H) 10/23/2022 Metformin intolerance. on farxiga for dual mgmt of CKD and ozempic. Statin intolerance. ACEi/ARB held d/t CKD Unable to get repatha covered unless confirmed vascular disease Orders: - COMPREHENSIVE METABOLIC PANEL; Future - HEMOGLOBIN A1C; Future - LIPID PANEL REFLEX; Future - semaglutide (OZEMPIC) 2 mg/dose (8 mg/3 mL) SubQ Pen Injector; Subcutaneous (Inject under the skin) 2 mg once a week. Dispense: 3 mL; Refill: 11 Elevated uric acid in blood Overview: On allopurinol Orders: - URIC ACID; Future Stage 3b chronic kidney disease (HCC) (Chronic) Overview: 06/2022 GFR 31 Followed by nephrology, on nephrocap Recommend addition of farxiga Assessment & Plan: Sig improvement with weight loss, diabetes control and sglt2, continue same. Obesity, Class III, BMI 40-49.9 (morbid obesity) (HCC) (Chronic) Overview: Wt Readings from Last 3 Encounters: 06/21/23 253 lb (114.8 kg) 05/22/23 256 lb (116.1 kg) 04/25/23 265 lb (120.2 kg) Successful weight loss on GLP, diet and exercise. Progress Note: Vitals: 06/21/23 0914 BP: 112/78 Pulse: 83 Resp: 18 Temp: 97.7 ??F (36.5 ??C) TempSrc: Forehead SpO2: 97% Weight: 253 lb (114.8 kg) Body mass index is 42.1 kg/m??. SUBJECTIVE: Chief Complaint Patient presents with Diabetes HPI: Diabetes: Jane following up today for diabetes. Current symptoms/problems include none. Current monitoring regimen: none Home blood sugar records: none Any episodes of hypoglycemia? no On insulin? No Weight trend: Body mass index is 42.1 kg/m??. Wt Readings from Last 3 Encounters: 06/21/23 253 lb (114.8 kg) 05/22/23 256 lb (116.1 kg) 04/25/23 265 lb (120.2 kg) A1c trend: Lab Results Component Value Date HGBA1C 6.9 (H) 03/21/2023 HGBA1C 7.6 (H) 10/23/2022 Renal trend: No results found for: GFRAFRAM No results found for: GFRNONAFRAM Lab Results Component Value Date GFRCKDEPI 65 03/21/2023 GFRCKDEPI 43 (L) 10/23/2022 Lipid trend: Lab Results Component Value Date LDLCALC 127 (H) 03/21/2023 Review of Systems Constitutional: Negative for fever. HENT: Negative for congestion. Respiratory: Negative for cough, shortness of breath and wheezing. Cardiovascular: Negative for chest pain, palpitations and leg swelling. Gastrointestinal: Negative for abdominal pain. Skin: Negative for rash and wound. Hematological: Negative for adenopathy. Does not bruise/bleed easily. OBJECTIVE: Physical Exam Constitutional: Appearance: She [...] Judgment: Judgment normal. * Liz Yanes - 06/21/2023 9:15 AM EST Venipuncture in the right antecubital vein with 21 gauge needle, length 1 1/2 inch. documented in this encounter Plan of Treatment Upcoming Encounters Date Type Department Care Team (Late st Contact Info) Description 05/07/2024 1:00 PM EST Office Visit [facility] [place] [facility] [address] [phone] Juana Bailey APRN [address] [place] [address] documented as of this encounter Goals Goal [...] Associated Diagnosis Comments LIPID PANEL REFLEX Routine 06/21/2023 9: 47 AM EST Type 2 diabetes mellitus with hyperlipidemia (HCC) URIC ACID Routine 06/21/2023 9:47 AM EST Elevated uric acid in blood HEMOGLOBIN A1C Routine 06/21/2023 9:47 AM EST Type 2 diabetes mellitus with hyperlipidemia (HCC) COMPREHENSIVE METABOLIC PANEL Routine 06/21/2023 9:47 AM EST Type 2 diabetes mellitus with hyperlipidemia (HCC) documented in this encounter Results * (ABNORMAL) LIPID PANEL REFLEX (06/21/2023 9:47 AM EST) Cholesterol 173 <200 mg/dL 06/21/2023 5:25 PM EST [facility] Comment: < 200 ?Desirable 200 - 239 ? Borderline High >= 240 ?High Triglyceride 171(H) <150 mg/dL 06/21/2023 5:25 PM EST [facility] Comment: < 150 ? Normal 150 - 199 ?Borderline High 200 - 499 ?High ??>= 500 ? Very High HDL 46 >=40 mg/dL 06/21/2023 5:25 PM EST [facility] [employer] [facility] Comment: ??> 60 ?Optimal 40 - 60 ?Acceptable ?? < 40 ?Low LDL Calculated 97 <100 mg/dL 06/21/2023 5:25 PM EST [facility] Non-HDL-C Calculated 127 <=129 mg/dL 06/21/2023 5:25 PM EST [facility] [employer] [employer] Comment: <130 ?Desirable 130-159 Above Desirable 160-189 Borderline High 190-219 High >= 220 ??Very High Fasting Specimen? Yes None 024 5:25 PM EST [facility] Blood VENOUS BLOOD / Unknown Venipuncture / Unknown 06/21/2023 9:47 AM EST 06/21/2023 9:47 AM EST Juana Bailey APRN CHEMISTRY ORDERABLES Final Result Performing Organization Address [facility] Co de Phone Number [facility] [employer], [facility] [address] [facility] , [place] [address] [facility] [address] [place] [address] * URIC ACID (06/21/2023 9:47 AM EST) [facility] Uric Acid 3.0 2.4 - 5.7 mg/dL 06/21/2023 5:25 PM EST [employer] Blood VENOUS BLOOD / Unknown Venipuncture / Unknown 06/21/2023 9:47 AM EST 06/21/2023 9:47 AM EST Juana Bailey APRN CHEMISTRY ORDERABLES Final Result Performing Organization Address [facility] Co de Phone Number [facility] [employer] [facility] [address] [facility] , [place] [phone] * (ABNORMAL) HEMOGLOBIN A1C (06/21/2023 9:47 AM EST) Hgb A1C 6.3(H) 4.2 - 5.6 % 06/21/2023 4:19 PM EST [facility] Est. Avg Glucose 134 mg/dL 06/21/2023 4:19 PM EST [facility] Blood VENOUS BLOOD / Unknown Venipuncture / Unknown 06/21/2023 9:47 AM EST 06/21/2023 9:47 AM EST Narrative [facility], [facility] - 06/21/2023 4:19 PM EST REFERENCE RANGE: Normal: 4.0-5.6% Pre-diabetes: 5.7-6.4% Provisional diagnosis of diabetes: >6.4% Hgb F>10% and anything which shortens red cell survival, such as hemolytic anemia, or unstable hemoglobin variants such as HbSS, HbSC, or HbCC, will lower the HbA1c value associated with a given level of glycemic control. ? Juana Bailey PILOT FUEL ENGINEER CHEMISTRY ORDERABLES Final Result [facility] [address] [facility] , [address] [place] [phone] * (ABNORMAL) COMPREHENSIVE METABOLIC PANEL (06/21/2023 9:47 AM EST) Sodium 139 136 - 145 mmol/L 06/21/2023 5:25 PM EST [facility] Potassium 4.1 3.5 - 5.0 mmol/L 06/21/2023 5:25 PM EST [facility] Chloride 98 98 - 107 mmol/L 06/21/2023 5:25 PM EST [facility] Total CO2 30(H) 22 - 29 mmol/L 06/21/2023 5:25 PM EST [facility] Anion Gap 11 7 - 16 mmol/L 06/21/2023 5:25 PM EST [facility] Calcium 10.7(H) 8.6 - 10.4 mg/dL 06/21/2023 5:25 PM EST [facility] Glucose Lvl 102(H) 70 - 99 mg/dL 06/21/2023 5:25 PM EST [facility] BUN 22(H) 6 - 20 mg/dL 06/21/2023 5:25 PM EST [facility] Creatinine 0.85 0.51 - 1.30 mg/dL 06/21/2023 5:25 PM EST [facility] Albumin 4.2 3.5 - 5.2 gm/dL 06/21/2023 5:25 PM EST [facility] Total Protein 7.9 6.4 - 8.3 gm/dL 06/21/2023 5:25 PM EST [facility] Bili Total 0.5 0.2 - 1.3 mg/dL 06/21/2023 5:25 PM EST [facility] ALT 23 <=41 U/L 06/21/2023 5:25 PM EST [facility] AST 27 <=40 U/L 06/21/2023 5:25 PM EST [facility] Alk Phos 91 36 - 123 U/L 06/21/2023 5:25 PM EST [facility] eGFR (CKD-EPIcr 2020) 81 >=60 mL/min/1.7 3 m2 06/21/2023 5:25 PM EST [facility] Comment:Estimated GFR was ca lculated using the CKD-EPIcr (2020) equation refit without race. The equation is recommended by the National Kidney Foundation - [employer] Neph[employer] Task Force. Blood VENOUS BLOOD / Unknown Venipuncture / Unknown 06/21/2023 9:47 AM EST 06/21/2023 9:47 AM EST Juana Bailey APRN CHEMISTRY ORDERABLES Final Result [facility], [address] , [place] [address] [facility] [address] [place] [phone] documented in this encounter Visit Diagnoses Diagnosis Type 2 diabetes mellitus with hyperlipidemia (HCC)- Primary Elevated uric acid in blood Other abnormal blood chemistry Stage 3b chronic kidney disease (HCC) Obesity, Class III, BMI 40-49.9 (morbid obesity) (HCC) Morbid obesity documented in this encounter Discontinued Medications Medication Sig Discontinue Reason Start Date End Da te semaglutide (OZEMPIC) 1 mg/dose (4 mg/3 mL) SubQ Pen InjectorIndications:Typ e 2 diabetes mellitus with hyperlipidemia (HCC) Subcutaneous (Inject under the skin) 1 mg once a week. DELETE- Entered in Error 03/21/2023 06/21/2023 documented as of this encounter Care Teams Director Women Relationship Specialty Start Date End Date Juana Bailey APRN [address] [place], [place] [phone] PCP - General Nurse Practitioner-Family 08/29/22 documented as of this encounter
--- OUTSIDE RECORDS SUMMARY | 2024-02-27 14:02 | XMS_ITS | Encounter Summary ---
Author Organization [place] [address] Care Team Providers Care Lpc Name Role Phone Juana Bailey APRN Primary Care Provider [phone] Reason for Visit * Reason Comments Nicotine Dependence For dip Encounter Details Date Type Department Care Team (Late st Contact Info) Description 04/25/2023 2:15 PM EST Office Visit SEP Nati [address] [place] [address] Juana Bailey APRN [address] [place] [address] Chewing tobacco nicotine dependence without complication (Primary Dx) Social History Tobacco Use Types Packs/Day Years [...] Date Recorded PHQ-2 Total Score 0 11/07/2022 [facility] [place] of Occupat ional Health - Occupational Stress [...] place to sleep or slept in a care home (including now)? No 03/05/2023 Sexually Active Control Partners Comments Yes Male Comments No Sex and Gender Information Value Date Recorded Sex Assigned at Not on file Legal Sex Female 11:17 AM EDT Gender Identity Not on file Sexual Orientation Not on file documented as of this encounter Last Filed Vital Signs Vital Sign Reading Time Taken Comments Blood Pressure 126/74 04/25/2023 1:50 PM EST Pulse 92 04/25/2023 1:50 PM EST Temperature 36.4 ??C (97.6 ??F) 04/25/2023 1:50 PM ES T Respiratory Rate 18 04/25/2023 1:50 PM EST Oxygen Saturation 96% 04/25/2023 1:50 PM EST Inhaled Oxygen Concentration - - Weight 120.2 kg (265 lb) 04/25/2023 1:50 PM EST Height - - Body Mass Index 44.1 11/07/2022 2:29 PM EDT documented in this [...] Refills Last Filled Start Date End Date nicotine polacrilex (COMMIT) 2 mg Bucl LozengeIndications :Chewing tobacco nicotine dependence without complication Place 1 Lozenge inside cheek as needed (nicotine cessation) for up to 30 days. 96 Lozenge 1 04/25/2023 4 documented in this encounter Progress Notes * Juana Bailey APRN - 04/25/2023 2:15 PM EST Assessment Diagnoses and all orders for this visit: Chewing tobacco nicotine dependence without complication - nicotine polacrilex (COMMIT) 2 mg Bucl Lozenge; Place 1 Lozenge inside cheek as needed (nicotine cessation) for up to 30 days. Dispense: 96 Lozenge; Refill: 1 - HI TOBACCO USE CESSATION INTERMEDIATE 3-10 MINUTES Discussed NRT options. Will start with lozenges and recommend using for cravings and gradual reducenumber used per day each week over a 6-12 week period. Spent 5 minutes discussing options and treatment. Progress Note: Vitals: 04/25/23 1350 BP: 126/74 Pulse: 92 Resp: 18 Temp: 97.6 ??F (36.4 ??C) TempSrc: Forehead SpO2: 96% Weight: 265 lb (120.2 kg) Body mass index is 44.1 kg/m??. SUBJECTIVE: Chief Complaint Patient presents with Nicotine Dependence For dip HPI: dips tobacco,motivated to quit. Would like to discuss some nicotine replacement options that would be covered by insurance. Review of Systems Constitutional: Negative for fever. HENT: Negative for congestion. Respiratory: Negative for cough, shortness of breath and wheezing. Cardiovascular: Negative for chest pain, palpitations and leg swelling. Hematological: Negative for adenopathy. Does not bruise/bleed easily. OBJECTIVE: Physical Exam Constitutional: Appearance: She is obese. HENT: Head: Normocephalic and atraumatic. Pulmonary: Effort: Pulmonary effort is normal. Neurological: Mental Status: She is alert and oriented to person, place, and time. Psychiatric: Mood and Affect: Mood normal. Thought Content: Thought content normal. Judgment: Judgment normal. documented in this encounter Plan of Treatment Upcoming Encounters Date Type Department Care Team (Late st Contact Info) Description 05/07/2024 1:00 PM EST Office Visit [facility]HELY [facility]EL [address] [place] [phone] Juana Bailey APRN [address] [facility] [place] [address] Scheduled Orders Name Type Priority Associated Diagnoses Orde r Schedule HI TOBACCO USE CESSATION INTERMEDIATE 3-10 MINUTES HI Charge Routine Chewing tobacco nicotine dependence without complication Ordered: 04/25/2023 documented as of this encounter Goals Goal [...] as of this encounter Visit Diagnoses Diagnosis Chewing tobacco nicotine dependence without complication- Primary Tobacco use disorder documented in this encounter Care Teams Lpc Relationship Specialty Start Date End Date Juana Bailey APRN [address] [place] [address] PCP - General Nurse Practitioner-Family 08/29/22 documented as of this encounter
--- OUTSIDE RECORDS SUMMARY | 2024-02-27 14:03 | XMS_ITS | Encounter Summary ---
Author Organization [place] [address] Care Team Providers Care Garbage Collector Name Role Phone Juana Bailey APRN Primary Care Provider [phone] Reason for Visit * Reason Comments Care Transition CM- Telephonic Outreach CM-Resource Coordination Encounter Details Date Type Department Care Team (Late st Contact Info) Description 10/26/2022 10:15 AM EDT Telemedicine SEP Nati [address] [place] [address] Cristina Portillo RN Encounter for support and coordination of transition of care (Primary Dx) Social History Tobacco Use Types Packs/Day Years Used Date Smoking Tobacco: Never Smokeless Tobacco: Current Snuff Alcohol Use Standard Drinks/Week Comments Not Currently 0 (1 standard drink = 0.6 oz pur e alcohol) Sexually Active Control Partners Comments Yes Male Comments Unknown Sex and Gender Information Value Date Recorded Sex Assigned at Not on file Legal Sex Female 11:17 AM EDT Gender Identity Not on file Sexual Orientation Not on file documented as of this encounter Progress Notes * Cristina Portillo RN - 10/26/2022 10:15 AM EDT Images from the original note were not included. Care Management (CM)Evaluation : Reason for visit: Assessment/ order for incontinence supplies from [facility] Visit Type: Telephone Assessment: Patient is a 52 year old woman, patient of Juana Bailey APRN. Was asked by provider to assist with ordering Durable Medical Equipment (DME) for incontinence. Called patient once, she stated for Office Director Nursing Service (OCC) to call back as she was with another doctor at that time. Was unable to do full assessment with patient when OCC called back due to patient wanting to end call Ability to complete activities of daily living (ADLs): Patient reports they are able to complete Activities of Daily Living (ADL's) independently Advance Care Planning (ACP): Advance Care Planning deferred due tothe patient needing to end visit for reasons unspecified to OCC Tobacco use: Reviewed; patient reports no change in smoking history Impactable barriers: Patient would like assistance with: DME order Health Maintenance: Hemoglobin (hgb) A1C Status Last completed on 10/23/22 Diabetic Eye Exam/ IRIS Status Declines IRIS, states she had done at her eye doctor in [place] Medications: Patient denies any questions or concerns related to medications Education: Educated patient on: orde was faxed to [facility], and they will ship order to her home ifeverything is covered. [facility] accepts her insurance, so it should be covered Handouts: No handouts provided Goals: Goals Addressed This Visit's Progress Obtain incontinence supplies affordably by end of October 2022 (pt-stated) On track MyChart: Patient has MyChart activated, but reports they do not use the service Next Steps: Director Nursing Service contact information given / reviewed Reviewed when to call Primary Care Provider (PCP) office, urgent care, or 911 Provider notified Director Nursing Service will not follow at this time. Notes: Order to [facility] scanned into electronic medical record documented in this encounter Plan of Treatment Upcoming Encounters Date Type Department Care Team (Late st Contact Info) Description 05/07/2024 1:00 PM EST Office Visit ASHELY PATEL [address] [phone] Juana Bailey APRN [address] [address] documented as of this encounter Goals Goal [...] as of this encounter Visit Diagnoses Diagnosis Encounter for support and coordination of transition of care- Primary documented in this encounter Care Teams Garbage Collector Relationship Specialty Start Date End Date Juana Bailey APRN [address] [place] [address] PCP - General Nurse Practitioner-Family 08/29/22 documented as of this encounter
--- OUTSIDE RECORDS SUMMARY | 2024-02-27 14:03 | XMS_ITS | Encounter Summary ---
Author Organization [place] [address] Care Team Providers Care Manager Agricultural Name Role Phone Juana Bailey APRN Primary Care Provider Reason for Visit * Reason Comments Medication Refill Encounter Details Date Type Department Care Team (Late Contact Info) Description 10/26/2022 Refill SEP Nati [place] [phone] Juana Bailey APRN [facility] [place] [address] Medication Refill Social History Tobacco Use Types [...] on file documented as of this encounter Ordered Prescriptions Prescription Sig Dispense Quantity Refills Last Filled Start Date End Date ergocalciferol (DRISDOL) 1,250 mcg (50,000 unit) Oral Capsule TAKE 1 CAPSULE BY MOUTH ONE TIME PER WEEK 4 Capsule 10/26/2022 3 documented in this encounter Plan of Treatment Upcoming Encounters Date Type Department Care Team (Late Contact Info) Description 05/07/2024 1:00 PM EST Office Visit ASHLEY [place] [phone] Juana Bailey APRN [address] [facility] B[place] [address] documented as of this encounter Goals Goal [...] CAPSULE BY MOUTH ONE TIME PER WEEK 08/29/2022 10/26/2022 documented as of this encounter Care Teams Manager Agricultural Relationship Specialty Start Date End Date Juana Bailey APRN [address] [facility] B[place] [address] PCP - General Nurse Practitioner-Family 08/29/22 documented as of this encounter
--- OUTSIDE RECORDS SUMMARY | 2024-02-27 14:03 | XMS_ITS | Encounter Summary ---
Author Organization [place] [address] Care Team Providers Care Oven Heater Helper Name Role Phone Juana Bailey APRN Primary Care Provider [phone] Reason for Visit * Reason Comments Medication Refill Encounter Details Date Type Department Care Team (Late st Contact Info) Description 12/03/2022 Refill SEP Nati [address] [place] [phone] Juana Bailey APRN [address] [place] [address] Medication Refill Social History Tobacco Use Types Packs/Day Years Used Date Smoking Tobacco: Never Smokeless Tobacco: Current Snuff Alcohol Use Standard Drinks/Week Comments Not Currently 0 (1 standard drink = 0.6 oz pur e alcohol) PHQ-2 Answer Date Recorded PHQ-2 Total Score 0 11/07/2022 Sexually Active Control Partners Comments Yes Male [...] MOUTH ONE TIME PER WEEK 4 Capsule 12/03/2022 3 documented in this encounter Plan of Treatment Upcoming Encounters Date Type Department Care Team (Late st Contact Info) Description 05/07/2024 1:00 PM EST Office Visit [facility] [place] [facility] [address] [place] [phone] Juana Bailey APRN [address] [place] [address] documented as of this encounter Goals Goal [...] CAPSULE BY MOUTH ONE TIME PER WEEK 10/26/2022 12/03/2022 documented as of this encounter Care Teams Oven Heater Helper Relationship Specialty Start Date End Date Juana Bailey APRN [address] [place] [address] PCP - General Nurse Practitioner-Family 08/29/22 documented as of this encounter
--- OUTSIDE RECORDS SUMMARY | 2024-02-27 14:03 | XMS_ITS | Encounter Summary ---
Author Organization [place] [address] Care Team Providers Care Emergency Medical Dispatcher Name Role Phone Juana Bailey APRN Primary Care Provider [phone] Reason for Visit * Reason Onset Date Comments Results 10/25/2022 IRIS Encounter Details Date Type Department Care Team (Late st Contact Info) Description 10/25/2022 Patient Outreach SEP [facility] [address] [place], [place] [phone] Juana Bailey APRN [address] [place] [address] Results (IRIS) Social History Tobacco Use Types Packs/Day Years [...] as of this encounter Progress Notes * Tabitha Sharma RN - 10/30/2022 9:24 AM EDT RN has reviewed, verified letter/address, and mailed appropriate documentation to patient. * Tabitha Sharma RN - 10/25/2022 9:26 AM EDT RN contacted patient regarding Ungradable iris test result. Patient aware of results, verbalized understanding. Patient Declined to schedule due to states she recently had an eye exam and see eye doctor in [place]. Letter printed. Patient is aware that a letter/certified letter will be sent unless referral/appointment is scheduled and patient verbalized understanding. PCP notified. documented in this encounter Plan of Treatment Upcoming Encounters Date Type Department Care Team (Late st Contact Info) Description 05/07/2024 1:00 PM EST Office Visit [facility] [place] [facility] [address] [place] [phone] Juana Bailey APRN [address] [facility] [place] [address] documented as of this encounter Goals Goal [...] on filedocumented in this encounter Care Teams Emergency Medical Dispatcher Relationship Specialty Start Date End Date Juana Bailey APRN [facility] B[place] [address] PCP - General Nurse Practitioner-Family 08/29/22 documented as of this encounter
--- OUTSIDE RECORDS SUMMARY | 2024-02-27 14:03 | XMS_ITS | Encounter Summary ---
Author Organization [place] [address] Care Team Providers Care Hotel Houseman Name Role Phone Juana Bailey APRN Primary Care Provider [phone] Reason for Visit * Reason Onset Date Comments Prior Authorization 10/26/2022 Letter of me dical necessity requested in order for them to do a PA Encounter Details Date Type Department Care Team (Late Contact Info) Description 10/26/2022 Telephone SEP Nati [address] [place] [phone] Juana Bailey APRN [address] [facility] [address] [place], [place] [id number] Prior Authorization (Letter of medical necessity requested in order for them to do a PA) Social History Tobacco Use Types Packs/Day Years [...] Telephone Encounter - Juana Bailey APRN - 11/06/2022 7:55 AM EDT Note entered. Please fax. * Telephone Encounter - Heide Young - 11/05/2022 10:34 AM EDT Marsha with [facility] called requesting a letter for medical necessity in order for them to do the PA on patient's for incontenence supplies. Please fax this to [phone]. Please call with add'l questions. * Telephone Encounter - Sarah Crowell CCMA - 10/31/2022 2:31 PM EDT Faxing back now * Telephone Encounter - Hafsa Phillips MA - 10/31/2022 2:24 PM EDT Do you know anything about this? If they are talking about me, I have no clue what they are talkingabout. I don't recall talking to anyone about this. * Telephone Encounter - Hiede Young - 10/31/2022 2:05 PM EDT Endy frankel/ [facility] called again trying to notify Hafsa that the initial order for patient's incontinence supplies. They needs the order returned signed in order to get next months supplies out on time. Please advise. * Telephone Encounter - Melina Rubio - 10/26/2022 2:24 PM EDT Endy from [facility] called wanted to inform hafsa they received request regarding incontinence supplies documented in this encounter Plan of Treatment Upcoming Encounters Date Type Department Care Team (Late st Contact Info) Description 05/07/2024 1:00 PM EST Office Visit [facility] [address] [place] [phone] Juana Bailey APRN [address] [facility] [address] [place] [address] documented as of this encounter Goals Goal [...] on filedocumented in this encounter Care Teams Hotel Houseman Relationship Specialty Start Date End Date Juana Bailey APRN [address] [place] [address] [place] [address] PCP - General Nurse Practitioner-Family 08/29/22 documented as of this encounter
--- OUTSIDE RECORDS SUMMARY | 2024-02-27 14:03 | XMS_ITS | Encounter Summary ---
Author Organization [place] [address] Care Team Providers Care Stock Clipper Name Role Phone Juana Bailey APRN Primary Care Provider [phone] Reason for Visit * Reason Comments Diabetes Encounter Details Date Type Department Care Team (Latest Contact Info) Description 02/20/2023 8:15 AM EST Office Visit ASHELY [place] [address] [place] [address] Juana Bailey APRN [address] [place] [address] Obesity, Class III, BMI 40-49.9 (morbid obesity) (HCC) (Primary Dx); Type 2 diabetes mellitus with hyperlipidemia (HCC) (HCC); Vaginal atrophy; Essential hypertension Social History Tobacco Use Types Packs/Day Years [...] Sign Reading Time Taken Comments Blood Pressure 116/74 02/20/2023 8:20 AM EST Pulse 80 02/20/2023 8:20 AM EST Temperature 36.7 ??C (98.1 ??F) 02/20/2023 8:20 AM ES T Respiratory Rate 18 02/20/2023 8:20 AM EST Oxygen Saturation 97% 02/20/2023 8:20 AM EST Inhaled Oxygen Concentration - - Weight 125.5 kg (276 lb 9.6 oz) 02/20/2023 8:20 AM EST Height - - Body Mass Index 46.03 11/07/2022 2:29 PM EDT documented in this [...] Refills Last Filled Start Date End Date conjugated estrogens (PREMARIN) Vagl CreamIndications:Va ginal atrophy Place 0.5 g vaginally every other day. 30 g 3 3 semaglutide (OZEMPIC) 0.25 mg or 0.5 mg (2 mg/3 mL) SubQ Pen InjectorIndications :Type 2 diabetes mellitus with hyperlipidemia (HCC) Subcutaneous (Inject under the skin) 0.5 mg once a week. 3 mL 2 3 03/21/20 documented in this encounter Progress Notes * Juana BaileyZAHRA - 02/20/2023 8:15 AM EST Assessment Diagnoses and all orders for this visit: Obesity, Class III, BMI 40-49.9 (morbid obesity) (HCC) (Chronic) Overview: Wt Readings from Last 3 Encounters: 02/20/23 276 lb 9.6 oz (125.5 kg) 01/17/23 288 lb (130.6 kg) 12/20/22 294 lb (133.4 kg) Successful weight loss on GLP, diet and exercise. Type 2 diabetes mellitus with hyperlipidemia (HCC) (Chronic) Overview: Lab Results Component Value Date HGBA1C 7.6 (H) 10/23/2022 Metformin intolerance. on farxiga for dual mgmt of CKD and ozempic. Statin intolerance. ACEi/ARB held d/t CKD Unable to get repatha covered unless confirmed vascular disease Orders: - semaglutide (OZEMPIC) 0.25 mg or 0.5 mg (2 mg/3 mL) SubQ Pen Injector; Subcutaneous (Inject underthe skin) 0.5 mg once a week. Dispense: 3 mL; Refill: 2 Vaginal atrophy Comments: recommend topical estrogen. reviewed application, side effects and risk. Orders: - conjugated estrogens (PREMARIN) Vagl Cream; Place 0.5 g vaginally every other day. Dispense: 30 g; Refill: 3 Essential hypertension Overview: BP Readings from Last 3 Encounters: 02/20/23 116/74 01/17/23 132/78 12/20/22 114/70 Well controlled on HCTZ Progress Note: Vitals: 02/20/23 0820 BP: 116/74 Pulse: 80 Resp: 18 Temp: 98.1 ??F (36.7 ??C) TempSrc: Forehead SpO2: 97% Weight: 276 lb 9.6 oz (125.5 kg) SUBJECTIVE: Chief Complaint Patient presents with Diabetes HPI: -followup on ozempic. Has been taking 0.25mg weekly for one month now. Tolerating well. No nausea, vomiting or bowel movements changes. Has had decreased appetite and decreased intake. Not monitoringblood sugar. Does have 11lb weight loss since last visit. -discuss vaginal atrophy. Postmenopause. Has vaginal dryness and discomfort with intercourse. Also with decreased libido. Review of Systems Constitutional: Negative for fever. HENT: Negative for congestion. Respiratory: Negative for cough, shortness of breath and wheezing. Cardiovascular: Negative for chest pain, palpitations and leg swelling. Hematological: Negative for adenopathy. OBJECTIVE: Physical Exam Constitutional: Appearance: She is obese. Pulmonary: Effort: Pulmonary effort is normal. Neurological: General: No focal deficit present. Mental Status: She is alert and oriented to person, place, and time. Psychiatric: Mood and Affect: Mood normal. Thought Content: Thought content normal. Judgment: Judgment normal. documented in this encounter Plan of Treatment Upcoming Encounters Date Type Department Care Team (Late st Contact Info) Description 05/07/2024 1:00 PM EST Office Visit ASHELY PAT[facility] [address] [place] [phone] Juana Bailey APRN [address] [facility] [facility] B[place] [address] documented as of this encounter Goals Goal [...] Brito APRN documented as of this encounter Visit Diagnoses Diagnosis Obesity, Class III, BMI 40-49.9 (morbid obesity) (HCC)- Primary Morbid obesity Type 2 diabetes mellitus with hyperlipidemia (HCC) Vaginal atrophy Postmenopausal atrophic vaginitis Essential hypertension Unspecified essential hypertension documented in this encounter Discontinued Medications Medication Sig Discontinue Reason Start Date End Da te oxyCODONE 10 mg Oral Tablet Take 10 mg by mouth. DELETE-Duplicate 11/05/2022 02/20/2023 carvediloL (COREG) 12.5 mg Oral Tablet Take 12.5 mg by mouth. DELETE-Therapy completed 01/01/2023 02/20/2023 semaglutide (OZEMPIC) 0.25 mg or 0.5 mg (2 mg/3 mL) SubQ Pen Injector Subcutaneous (Inject under the skin). Reorder 01/03/2023 02/20/2023 documented as of this encounter Historical Medications * This list may reflect changes made after this encounter. semaglutide (OZEMPIC) 0.25 mg or 0.5 mg (2 mg/3 mL) SubQ Pen Injector Subcutaneous (Inject under the skin). 01/03/2023 3 oxyCODONE 10 mg Oral Tablet Take 10 mg by mouth. 11/05/2022 3 carvediloL (COREG) 12.5 mg Oral Tablet Take 12.5 mg by mouth. 01/01/2023 3 gabapentin (NEURONTIN) 300 mg Oral Capsule 02/07/2023 4 added in this encounter Care Teams Stock Clipper Relationship Specialty Start Date End Date Juana Bailey APRN [address] [place], [place] [address] PCP - General Nurse Practitioner-Family 08/29/22 documented as of this encounter
--- OUTSIDE RECORDS SUMMARY | 2024-02-27 14:03 | XMS_ITS | Encounter Summary ---
Author Organization [place] [address] Care Team Providers Care Primary Care Md Name Role Phone Juana Bailey APRN Primary Care Provider [phone] Reason for Visit * Reason Comments Medication Refill Encounter Details Date Type Department Care Team (Late st Contact Info) Description 12/18/2022 Refill SEP Nati [address] [place] [phone] Juana Bailey APRN [address] [place] [address] Medication Refill Social History Tobacco Use Types [...] MOUTH 2 TIMES A DAY 60 Tablet 2 12/18/2022 03/19/2023 documented in this encounter Miscellaneous Notes * Telephone Encounter - Peyton Duron CPhT - 12/18/2022 11:56 AM EDT Medication Refill Protocol not available for this medication. Routed to office staff. documented in this encounter Plan of Treatment Upcoming Encounters Date Type Department Care Team (Late st Contact Info) Description 05/07/2024 1:00 PM EST Office Visit ASHELY PATEL [address] [place] [phone] Juana Bailey APRN [address] [place] [address] documented as of this encounter Goals Goal [...] BY MOUTH 2 TIMES A DAY 11/21/2022 12/18/2022 documented as of this encounter Care Teams Primary Care Md Relationship Specialty Start Date End Date Juana Bailey APRN [address] [place], [place] [address] PCP - General Nurse Practitioner-Family 08/29/22 documented as of this encounter
--- OUTSIDE RECORDS SUMMARY | 2024-02-27 14:03 | XMS_ITS | Encounter Summary ---
Author Organization [facility] [place] [address] Care Team Providers Care Ems Driver Name Role Phone Juana Bailey APRN Primary Care Provider [phone] Reason for Visit * Reason Comments Medication Refill Encounter Details Date Type Department Care Team (Late st Contact Info) Description 11/20/2022 Refill SEP Nati [address] [place] [phone] Juana Bailey APRN [address] [place] [address] Medication Refill Social History Tobacco Use Types [...] MOUTH 2 TIMES A DAY 60 Tablet 11/21/2022 3 metoprolol (LOPRESSOR) 50 mg Oral Tablet TAKE ONE TABLET BY MOUTH 2 TIMES A DAY 180 Tablet 2 11/21/2022 4 omeprazole (PRILOSEC) 20 mg Oral Capsule, Delayed Release(E.C.) TAKE 1 CAPSULE BY MOUTH ONCE A DAY 90 Capsule 2 11/21/2022 4 documented in this encounter Miscellaneous Notes * Telephone Encounter - Marni Santiago CPhT - 11/21/2022 9:14 AM EDT Metoprolol Medication Refill Protocol passed. chaplain resident Action: Approved 90 day supply with sufficient refills to noted follow-up date by provider or protocol if no follow-up date noted, not to exceed 90 days past that date. Omeprazole Medication Refill Protocol passed. chaplain resident Action: Approved 90 day supply with sufficient refills to noted follow-up date by provider or protocol if no follow-up date noted, not to exceed 90 days past that date. Flecainide Medication Refill Protocol not available for this medication. Routed to office staff. documented in this encounter Plan of Treatment Upcoming Encounters Date Type Department Care Team (Late st Contact Info) Description 05/07/2024 1:00 PM EST Office Visit [facility] [place] [facility] [address] [place] [phone] Juana Bailey APRN [address] [facility] [place] [address] documented as of this encounter Goals Goal [...] 1 CAPSULE BY MOUTH ONCE A DAY 10/17/2022 11/21/2022 metoprolol (LOPRESSOR) 50 mg Oral Tablet TAKE ONE TABLET BY MOUTH 2 TIMES A DAY 10/17/2022 11/21/2022 flecainide (TAMBOCOR) 50 mg Oral Tablet TAKE ONE TABLET BY MOUTH 2 TIMES A DAY 10/17/2022 11/21/2022 documented as of this encounter Care Teams Ems Driver Relationship Specialty Start Date End Date Juana Bailey APRN [address] [facility] [place] [address] PCP - General Nurse Practitioner-Family 08/29/22 documented as of this encounter
--- OUTSIDE RECORDS SUMMARY | 2024-02-27 14:03 | XMS_ITS | Encounter Summary ---
Author Organization [place] [address] Care Team Providers Care Customer Support Engineer Name Role Phone Juana Bailey APRN Primary Care Provider [phone] Reason for Visit * Reason Comments Pharmacy Hyperlipidemia Management Repat leslie Encounter Details Date Type Department Care Team (Latest Contact Info) Description 10/25/2022 Specialty Pharmacy [facility] [address] [place], [place] [phone] Ericka Nettles RPH Pharmacy Hyperlipidemia Management (Repatha) Social History Tobacco Use Types Packs/Day Years [...] as of this encounter Progress Notes * Ericka Nettles RPH - 10/25/2022 12:49 PM EDT [facility] Prescription received for Repatha (140mg/ml). Prescription requires prior authorization. Will routeto pharmacist for clinical review. Ericka Nettles PharmD Specialty Pharmacist * Ericka Netltes RPH - 10/25/2022 12:49 PM EDT [facility] - Hyperlipidemia Clinical Review Jane Madden is a 52 y.o. female. Hyperlipidemia: Patient was prescribed evolocumab (Repatha) 140mg SQ every 14 day(s) for initiationof therapy for hyperlipidemia (E78.5). No Known Allergies Risk/ Status: unknown Test: No results found for: PREGTESTUR Lab Results Component Value Date ALT 32 10/23/2022 AST 39 10/23/2022 BUN 30 (H) 10/23/2022 CREATININE 1.44 (H) 10/23/2022 Lab Results Component Value Date WBC 10.1 10/23/2022 HGB 11.3 10/23/2022 HCT 34.9 10/23/2022 PLT 213 10/23/2022 MCV 94.8 10/23/2022 RDW 12.2 10/23/2022 NEUTOPHILPCT 63.5 10/23/2022 LYMPHOPCT 24.0 10/23/2022 MONOPCT 6.9 10/23/2022 EOSPCT 4.5 10/23/2022 BASOPCT 0.6 10/23/2022 Lab Results Component Value Date HGBA1C 7.6 (H) 10/23/2022 LDLCALC 127 (H) 10/23/2022 HDL 39 (L) 10/23/2022 TRIG 269 (H) 10/23/2022 CHOLESTEROL 214 (H) 10/23/2022 TSHREFLEX 2.020 10/23/2022 FREET4 1.17 10/23/2022 CREATININE 1.44 (H) 10/23/2022 The 10-year ASCVD risk score (Lorenza RICHTER, et al., 2019) is: 6% Values used to calculate the score: Age: 52 years Sex: Female Is Non- : No Diabetic: Yes Tobacco smoker: No Systolic Blood Pressure: 118 mmHg Is BP treated: Yes HDL Cholesterol: 39 mg/dL Total Cholesterol: 214 mg/dL Current Outpatient Medications Medication Sig allopurinoL Take 1 Tablet by mouth daily. aspirin-dipyridamole Take 1 Capsule by mouth 2 times daily. Once daily b znykzza-I-zfayj acid Take 1 Capsule by mouth daily. dapagliflozin propanediol Take 1 Tablet by mouth daily. ergocalciferol TAKE 1 CAPSULE BY MOUTH ONE TIME PER WEEK evolocumab Subcutaneous (Inject under the skin) 1 mL every 14 days. fish oil OTC Take 2 g by mouth daily. flecainide TAKE ONE TABLET BY MOUTH 2 TIMES A DAY hydroCHLOROthiazide Take 1 Tablet by mouth daily. loratadine TAKE ONE TABLET BY MOUTH ONCE A DAY melatonin Take by mouth. metoprolol TAKE ONE TABLET BY MOUTH 2 TIMES A DAY metoprolol succinate Take 50 mg by mouth daily. Take 2 times a day omeprazole TAKE 1 CAPSULE BY MOUTH ONCE A DAY oxyCODONE-acetaminophen Take 1 Tablet by mouth every [address]. [address] Zelaya Previously tried HLD medications: atorvastatin (Lipitor) and ezetimibe (Zetia) Medication(s) being used with prescribed medication: none Patient is statin intolerant. If patient has ASCVD, it is confirmed by: Patient does not have ASCVD Clinical Impression: LDL not at goal (<100). Appears that patient has only tried 1 statin (d/c due to myalgias). Clinically appropriate. Ericka Nettles [facility] Specialty Pharmacist * Laly Downey CPhT - 10/25/2022 12:49 PM EDT [facility] Tried to submit PA on CMM, it stated that a PA has previously been defined for this patient and that I would need to call [phone]. Calling insurance to see if they can fax us the denial letter so that we can appeal. The rep statedthat she faxed the denial letter to us at [phone]. * Glory Sharma CPhT - 10/25/2022 12:49 PM EDT Images from the original note were not included. [facility] Prior Authorization Determination Received notice of PA denial for Repatha. PA was denied due to: Non referral patient. Will route to [facility] to determine next steps. Appeal letter pended. * Juana Bailey APRN - 10/25/2022 12:49 PM EDT Please have patient reach out to her diesel mechanic construction and see If they will prescribe repatha for her. Her insurance will only cover it if prescribed by specialist. Thanks. * Sarah Crowell CCMA - 10/25/2022 12:49 PM EDT Sent Transmit message * Glory Sharma CPhT - 10/25/2022 12:49 PM EDT [facility] Will follow chart for next steps. Patient needs diesel mechanic construction to prescribe Repatha documented in this encounter Plan of Treatment Upcoming Encounters Date Type Department Care Team (Late st Contact Info) Description 05/07/2024 1:00 PM EST Office Visit ASHELY PATEL [address] [place] [place] [phone] Juana Bailey APRN [address] [place] [address] documented as of this encounter Goals Goal [...] on filedocumented in this encounter Care Teams Customer Support Engineer Relationship Specialty Start Date End Date Juana Bailey APRN [address] [place] [address] PCP - General Nurse Practitioner-Family 08/29/22 documented as of this encounter
--- OUTSIDE RECORDS SUMMARY | 2024-02-27 14:03 | XMS_ITS | Encounter Summary ---
Author Organization [place] [address] Care Team Providers Care Alterations Tailor Name Role Phone Juana Bailey APRN Primary Care Provider [phone] Reason for Visit * Reason Onset Date Comments Care Transition 12/14/2022 CM- Telephonic Outreach 12/14/2022 Encounter Details Date Type Department Care Team (Late st Contact Info) Description 12/14/2022 Patient Outreach [facility] [address] [place] [phone] Cristina Portillo, digital marketing coordinator; CM- Telephonic Outreach Social History Tobacco Use Types Packs/Day Years [...] documented in this encounter Progress Notes * Cristina Portillo RN - 12/14/2022 12:50 PM EDT Assessment: Patient needs scheduled for PPD testing. 12/18/22. Office Marketing Traffic Manager (OCC) not available, scheduled her provider to complete at 0845. OCCvisitType: Telephonic Education/handouts: Education: Educated patient on: appointment time confirmed Handouts: No handouts provided MyChart already active and access confirmed with patient. Goals: Not applicable Next Steps: Visist 12/18/22 0845 with provider to get tuberculin skin test documented in this encounter Plan of Treatment Upcoming Encounters Date Type Department Care Team (Late st Contact Info) Description 05/07/2024 1:00 PM EST Office Visit [facility] [address] [phone] Juana Bailey APRN [address] [place] [address] documented as of this encounter Goals Goal [...] as of this encounter Visit Diagnoses Diagnosis PPD screening test- Primary Screening examination for pulmonary tuberculosis documented in this encounter Care Teams Alterations Tailor Relationship Specialty Start Date End Date Juana Bailey APRN [address] [place] [address] PCP - General Nurse Practitioner-Family 08/29/22 documented as of this encounter
--- OUTSIDE RECORDS SUMMARY | 2024-02-27 14:03 | XMS_ITS | Encounter Summary ---
Author Organization [place] [address] Care Team Providers Care Permit Review Assistant Name Role Phone Juana Bailey APRN Primary Care Provider [phone] Reason for Visit * Reason Comments Medication Refill Encounter Details Date Type Department Care Team (Late st Contact Info) Description 11/12/2022 Refill [facility] [address] [place] [address] Juana Bailey APRN [address] [place] [address] Medication Refill Social History Tobacco Use Types [...] BY MOUTH ONCE A DAY 30 Tablet 11/12/2022 12/11/2022 documented in this encounter Miscellaneous Notes * Telephone Encounter - Peyton Duron CPhT - 11/12/2022 3:00 PM EDT Medication Refill Protocol not available for this medication. Routed to office staff. documented in this encounter Plan of Treatment Upcoming Encounters Date Type Department Care Team (Late st Contact Info) Description 05/07/2024 1:00 PM EST Office Visit [facility]HELY PAT[facility] [address] [place] [address] Juana Bailey APRN [address] [place] [address] documented as of this encounter Goals Goal [...] ONE TABLET BY MOUTH ONCE A DAY 10/03/2022 11/12/2022 documented as of this encounter Care Teams Permit Review Assistant Relationship Specialty Start Date End Date Juana Bailey APRN [address] [place] [address] PCP - General Nurse Practitioner-Family 08/29/22 documented as of this encounter
--- OUTSIDE RECORDS SUMMARY | 2024-02-27 14:03 | XMS_ITS | Encounter Summary ---
Author Organization [place] [address] Care Team Providers Care Skein Yarn Drier Name Role Phone Juana Bailey APRN Primary Care Provider [phone] Reason for Visit * Reason Comments Medication Refill Encounter Details Date Type Department Care Team (Late st Contact Info) Description 12/10/2022 Refill [facility] [address] [place] [address] Juana Bailey APRN [address] [place] [address] Medication Refill Social History Tobacco Use Types [...] BY MOUTH ONCE A DAY 30 Tablet 12/11/2022 01/08/2023 documented in this encounter Plan of Treatment Upcoming Encounters Date Type Department Care Team (Late st Contact Info) Description 05/07/2024 1:00 PM EST Office Visit [facility]HELY PATEL [address] [phone] Juana Bailey APRN [address] [facility] [place] [address] documented as of this encounter Goals Goal [...] APRN HEMOGLOBIN A1C < 7.0 Result Component 6.1(07/11/202 4 9:55 AM EDT) No Juana Bailey APRN documented as of this encounter Visit Diagnoses Not on filedocumented in this encounter Discontinued Medications Medication Sig Discontinue Reason Start Date End Da te loratadine (CLARITIN) 10 mg Oral Tablet TAKE ONE TABLET BY MOUTH ONCE A DAY 11/12/2022 12/11/2022 documented as of this encounter Care Teams Skein Yarn Drier Relationship Specialty Start Date End Date Juana Bailey APRN [address] [place] [address] PCP - General Nurse Practitioner-Family 08/29/22 documented as of this encounter
--- OUTSIDE RECORDS SUMMARY | 2024-02-27 14:03 | XMS_ITS | Encounter Summary ---
Author Organization [place] [address] Care Team Providers Care Fiberglass Roving Winder Name Role Phone Juana Bailey APRN Primary Care Provider [phone] Reason for Visit * Reason Comments Medication Refill Encounter Details Date Type Department Care Team (Late st Contact Info) Description 01/07/2023 Refill [facility] [address] [place] [address] Juana Bailey APRN [address] [place] [address] Medication Refill Social History Tobacco Use Types [...] MOUTH ONE TIME PER WEEK 4 Capsule 01/08/2023 3 loratadine (CLARITIN) 10 mg Oral Tablet TAKE ONE TABLET BY MOUTH ONCE A DAY 30 Tablet 01/08/2023 3 documented in this encounter Miscellaneous Notes * Telephone Encounter - Peyton Duron CPhT - 01/08/2023 10:11 AM EDT Loratadine Medication Refill Protocol not available for this medication. Routed to office staff. Drisdol Medication Refill Protocol not available for this medication. Routed to office staff. documented in this encounter Plan of Treatment Upcoming Encounters Date Type Department Care Team (Late st Contact Info) Description 05/07/2024 1:00 PM EST Office Visit [facility]HE[facility] [place] [address] [place] [phone] Juana Bailey APRN [address] [place] [address] documented as of this encounter Goals Goal Patient Goal Type Associated Problems Recent Progress Patient-Stated? Author Blood Pressure < 140/90 Blood Pressure 112/70(2023 8:24 AM EDT) No Jauna Bailey APRN Maintain a healthy diet, exercise [...] CAPSULE BY MOUTH ONE TIME PER WEEK 12/03/2022 01/08/2023 loratadine (CLARITIN) 10 mg Oral Tablet TAKE ONE TABLET BY MOUTH ONCE A DAY 12/11/2022 01/08/2023 documented as of this encounter Care Teams Fiberglass Roving Winder Relationship Specialty Start Date End Date Juana Bailey APRN [address] [place] [address] PCP - General Nurse Practitioner-Family 08/29/22 documented as of this encounter
--- OUTSIDE RECORDS SUMMARY | 2024-02-27 14:03 | XMS_ITS | Encounter Summary ---
Author Organization [place] [address] Care Team Providers Care Foam Rubber Molder Name Role Phone Juana Bailey APRN Primary Care Provider [phone] Reason for Visit * Reason Comments Obesity Discuss options, wan ting shot Encounter Details Date Type Department Care Team (Latest Contact Info) Description 12/20/2022 9:30 AM EDT Office Visit [facility] [place] [address] [place] [address] Juana Bailey APRN [address] [place] [address] Type 2 diabetes mellitus with hyperlipidemia (HCC) (HCC) (Primary Dx); Obesity, Class III, BMI 40-49.9 (morbid obesity) [...] Sign Reading Time Taken Comments Blood Pressure 114/70 12/20/2022 9:00 AM EDT Pulse 67 12/20/2022 9:00 AM EDT Temperature 36.7 ??C (98.1 ??F) 12/20/2022 9:00 AM ED T Respiratory Rate 18 12/20/2022 9:00 AM EDT Oxygen Saturation 97% 12/20/2022 9:00 AM EDT Inhaled Oxygen Concentration - - Weight 133.4 kg (294 lb) 12/20/2022 9:00 AM EDT Height - - Body Mass Index 48.92 11/07/2022 2:29 PM EDT documented in this [...] Refills Last Filled Start Date End Date tirzepatide 7.5 mg/0.5 mL SubQ Pen InjectorIndications :Type 2 diabetes mellitus with hyperlipidemia (HCC) Subcutaneous (Inject under the skin) 7.5 mg once a week for 28 days. 2 mL 3 01/04/20 23 tirzepatide (MOUNJARO) 5 mg/0.5 mL SubQ Pen InjectorIndications :Type 2 diabetes mellitus with hyperlipidemia (HCC) Subcutaneous (Inject under the skin) 5 mg once a week for 28 days. 2 mL 3 01/04/20 tirzepatide (MOUNJARO) 2.5 mg/0.5 mL SubQ Pen InjectorIndications :Type 2 diabetes mellitus with hyperlipidemia (HCC) Subcutaneous (Inject under the skin) 2.5 mg once a week. 2 mL 3 01/04/20 documented in this encounter Progress Notes * Juana Bailey APRN - 12/20/2022 9:30 AM EDT Assessment Diagnoses and all orders for this visit: Type 2 diabetes mellitus with hyperlipidemia (HCC) (Chronic) Overview: Lab Results Component Value Date HGBA1C 7.6 (H) 10/23/2022 Metformin intolerance. on farxiga for dual mgmt of CKD Add mounjaro. Statin intolerance. ACEi/ARB held d/t CKD Trying to get repatha approved. Orders: - tirzepatide (MOUNJARO) 2.5 mg/0.5 mL SubQ Pen Injector; Subcutaneous (Inject under the skin) 2.5 mg once a week. Dispense: 2 mL; Refill: 0 - tirzepatide (MOUNJARO) 5 mg/0.5 mL SubQ Pen Injector; Subcutaneous (Inject under the skin) 5 mg once a week for 28 days. Dispense: 2 mL; Refill: 0 - tirzepatide 7.5 mg/0.5 mL SubQ Pen Injector; Subcutaneous (Inject under the skin) 7.5 mg once a week for 28 days. Dispense: 2 mL; Refill: 0 Obesity, Class III, BMI 40-49.9 (morbid obesity) (HCC) (Chronic) Overview: Diet/exercise. Orders: - WEIGHT LOSS DISCUSSED WITH PATIENT - DIET DISCUSSED WITH PATIENT Progress Note: Vitals: 12/20/22 0900 BP: 114/70 Pulse: 67 Resp: 18 Temp: 98.1 ??F (36.7 ??C) TempSrc: Forehead SpO2: 97% Weight: 294 lb (133.4 kg) SUBJECTIVE: Chief Complaint Patient presents with Obesity Discuss options, wanting shot HPI: Pateint presents to office to discuss diabetes management. Interolance to metformin in past. Recently started on farxiga. Tolerating well. She has some interest in GLP1 as she does have coinciding obesity, HTN and dyslipidemia. Does have hx of GERD but currently well controlled. No hx of pancreatitis. Review of Systems Constitutional: Negative for fever. HENT: Negative for congestion. Respiratory: Negative for cough, shortness of breath and wheezing. Cardiovascular: Negative for chest pain and palpitations. Hematological: Negative for adenopathy. OBJECTIVE: Physical Exam [...] Judgment: Judgment normal. documented in this encounter Miscellaneous Notes * Patient Instructions - Juana Bailey APRN - 12/20/2022 9:30 AM EDT MOUNJARO 2.5MG ONCE A WEEK FOR 4 WEEKS 5MG ONCE A WEEK FOR 4 WEEKS 7.5MG ONCE A WEEK FOR 4 WEEKS 10MG ONCE A WEEK FOR 4 WEEKS 12.5MG ONCE A WEEK FOR 4 WEEKS 15MG ONCE WEEKLY AND CONTINUE ON THIS SAME DOSE. documented in this encounter Plan of Treatment Upcoming Encounters Date Type Department Care Team (Late st Contact Info) Description 05/07/2024 1:00 PM EST Office Visit ASHELY PATEL [address] [place] [phone] Juana Bailey APRN [address] [place] [address] documented as of this encounter Goals Goal [...] 2 diabetes mellitus with hyperlipidemia (HCC)- Primary Obesity, Class III, BMI 40-49.9 (morbid obesity) (HCC) Morbid obesity documented in this encounter Orders Nursing Count Last Ordered Date First Orde red Date DIET DISCUSSED WITH PATIENT 1 12/20/2022 WEIGHT LOSS DISCUSSED WITH PATIENT 1 2022 documented in this encounter Care Teams Foam Rubber Molder Relationship Specialty Start Date End Date Juana Bailey APRN [address] [place], [place] [address] PCP - General Nurse Practitioner-Family 08/29/22 documented as of this encounter
--- OUTSIDE RECORDS SUMMARY | 2024-02-27 14:03 | XMS_ITS | Encounter Summary ---
Author Organization [place] [address] Care Team Providers Care Paint Prepper Name Role Phone Juana Bailey ZAHRA Primary Care Provider [phone] Reason for Visit * Reason Comments Care Transition Care Management - Face To Face CM-PPD Reading Encounter Details Date Type Department Care Team (Late st Contact Info) Description 12/20/2022 8:45 AM EDT Office Visit [facility] [address] [place] [phone] [facility] PPD screening test (Primary Dx) Social History Tobacco Use Types [...] Progress Notes * Cristina Portillo RN - 12/20/2022 8:45 AM EDT Patient presented to office director of patient care for Purified Protein Derivative (PPD) read. Initial PPD placed on 12/18/2022, at 0845. Patient is within timeframe presenting today at 0845. Results: 0 mm induration. Results entered in [employer]. Patient received completed paperwork indicating result. documented in this encounter Plan of Treatment Upcoming Encounters Date Type Department Care Team (Late st Contact Info) Description 05/07/2024 1:00 PM EST Office Visit ASHELY PATEL [address] [place] [phone] Juana Bailey APRN [address] [place] [address] documented as of this encounter Goals Goal [...] tuberculosis documented in this encounter Care Teams Paint Prepper Relationship Specialty Start Date End Date Juana Bailey APRN [address] [place], [place] [address] PCP - General Nurse Practitioner-Family 08/29/22 documented as of this encounter
--- OUTSIDE RECORDS SUMMARY | 2024-02-27 14:03 | XMS_ITS | Encounter Summary ---
Author Organization [place] [address] Care Team Providers Care Director Of Materials Management Name Role Phone Juana Bailey APRN Primary Care Provider [phone] Reason for Visit * Reason Onset Date Comments Central Order Completion Outreach 11/08/2022 mammo Encounter Details Date Type Department Care Team (Late st Contact Info) Description 11/08/2022 Patient Outreach [facility] [address] [place], [place] [phone] Juana Bailey APRN [address] [place] [address] Central Order Completion Outreach (mammo) Social History Tobacco Use Types Packs/Day Years [...] documented in this encounter Progress Notes * Sabrina Hernadez RN - 11/08/2022 10:14 AM EDT SEP Order Completion Outcome Tracking Contact Attempt:: Final Mammogram Outcome:: Patient Declined Patient declined reason:: Other (see comment) (patient will wait for the mammogram van) documented in this encounter Plan of Treatment Upcoming Encounters Date Type Department Care Team (Late st Contact Info) Description 05/07/2024 1:00 PM EST Office Visit ASHELY PATEL [address] [place] [phone] Juana Bailey APRN [address] [place] [address] documented as of this encounter Goals Goal Patient Goal Type Associated Problems Recent Progress Patient-Stated? Author Blood Pressure < 140/90 Blood Pressure 112/70(2023 8:24 AM EDT) No Juana Bailey APRN Maintain a healthy diet, exercise regularly and maintain an ideal body weight General No Ruba, Noelle L, RMA BMI (Calculated) < 30 General 38.7(10/24/19 24 9:24 AM EDT) No Juana Bailey APRN Stay Tobacco Free Lifestyle No Juana Bailey APRN HEMOGLOBIN A1C < 7.0 Result Component 6.1( 4 9:55 AM EDT) No Juana Bailey APRN documented as of this encounter Visit Diagnoses Not on filedocumented in this encounter Care Teams Director Of Materials Management Relationship Specialty Start Date End Date Juana Bailey APRN [address] [place], [place] [address] PCP - General Nurse Practitioner-Family 08/29/22 documented as of this encounter
--- OUTSIDE RECORDS SUMMARY | 2024-02-27 14:03 | XMS_ITS | Encounter Summary ---
Author Organization [place] [address] Care Team Providers Care Statistical Typist Name Role Phone Juana Bailey APRN Primary Care Provider [phone] Reason for Visit * Reason Comments Medication Question Discuss semaglutide Encounter Details Date Type Department Care Team (Latest Contact Info) Description 01/17/2023 2:15 PM EDT Office Visit ASHE[facility] [place] [address] [place] [address] Juana Bailey APRN [address] [place] [address] Type 2 diabetes mellitus with hyperlipidemia (HCC) (HCC) (Primary Dx) Social History Tobacco Use Types [...] Sign Reading Time Taken Comments Blood Pressure 132/78 01/17/2023 2:21 PM EDT Pulse 81 01/17/2023 2:21 PM EDT Temperature 36.4 ??C (97.6 ??F) 01/17/2023 2:21 PM ED T Respiratory Rate 18 01/17/2023 2:21 PM EDT Oxygen Saturation 98% 01/17/2023 2:21 PM EDT Inhaled Oxygen Concentration - - Weight 130.6 kg (288 lb) 01/17/2023 2:21 PM EDT Height - - Body Mass Index 47.93 11/07/2022 2:29 PM EDT documented in this [...] Author No 11/07/2022 2:28 PM EDT Alden Crwoell CCMA documented in this encounter Progress Notes * Juana Bailey, ZAHRA - 01/17/2023 2:15 PM EDT Assessment Diagnoses and all orders for this visit: Type 2 diabetes mellitus with hyperlipidemia (HCC) (Chronic) Overview: Lab Results Component Value Date HGBA1C 7.6 (H) 10/23/2022 Metformin intolerance. on farxiga for dual mgmt of CKD Added ozempic. Statin intolerance. ACEi/ARB held d/t CKD Trying to get repatha approved. Reviewed dosing and administration of Ozempic. Reiterated side effects. Educated patient on administration and she demonstrated injection here in office today. All questions answered. She will follow-up in 2 months. Progress Note: Vitals: 01/17/23 1421 BP: 132/78 Pulse: 81 Resp: 18 Temp: 97.6 ??F (36.4 ??C) TempSrc: Forehead SpO2: 98% Weight: 288 lb (130.6 kg) SUBJECTIVE: Chief Complaint Patient presents with Medication Question Discuss semaglutide HPI: Patient presents office today to follow-up on Ozempic. This is a new prescription. She would like to review dosing as well as administration technique. We have already discussed side effects and dosetitration. Review of Systems Constitutional: Negative for fever. HENT: Negative for congestion. Respiratory: Negative for cough, shortness of breath and wheezing. Cardiovascular: Negative for chest pain and leg swelling. Hematological: Negative for adenopathy. [...] Patient Instructions - Juana Bailey APRN - 01/17/2023 2:15 PM EDT OZEMPIC: START AT 0.25MG ONCE A WEEK FOR FOUR WEEKS THEN INCREASE TO 0.5MG ONCE A WEEK FOLLOW-UP IN 2 MONTHS MAKE SURE TO EAT SMALLER MEALS, INCREASE WATER INTAKE, AVOID LATE NIGHT EATING. documented in this encounter Plan of Treatment Upcoming Encounters Date Type Department Care Team (Late st Contact Info) Description 05/07/2024 1:00 PM EST Office Visit [facility] [place] [facility] [address] [place] [phone] Juana Bailey APRN [address] [place] [address] documented as of this encounter Goals Goal [...] APRN Stay Tobacco Free Lifestyle No Juana aBiley APRN HEMOGLOBIN A1C < 7.0 Result Component 6.1( 9:55 AM EDT) No Juana Bailey APRN documented as of this encounter Visit Diagnoses Diagnosis Type 2 diabetes mellitus with hyperlipidemia (HCC)- Primary documented in this encounter Care Teams Statistical Typist Relationship Specialty Start Date End Date Juana Bailey APRN [address] [place], [place] [address] PCP - General Nurse Practitioner-Family 08/29/22 documented as of this encounter
--- OUTSIDE RECORDS SUMMARY | 2024-02-27 14:03 | XMS_ITS | Encounter Summary ---
Author Organization [facility] [place] [address] Care Team Providers Care Branch Services Manager Name Role Phone Juana Bailey MANAGER LOCATION Primary Care Provider [phone] Reason for Visit * Reason Onset Date Comments Care Transition 10/26/2022 CM- Telephonic Outreach 10/26/2022 CM-Resource Coordination 10/26/2022 Encounter Details Date Type Department Care Team (Latest Contact Info) Description 10/26/2022 Patient Outreach [facility] [address] [place] [phone] Cristina Portillo, sign letterer; CM- Telephonic Outreach; CM-Resource Coordination Social History Tobacco Use Types Packs/Day Years [...] Notes * Cristina Portillo RN - 10/26/2022 9:18 AM EDT Images from the original note were not included. Assessment: Patient referred to Office Head Chopper (OCC) by provider to assist with incontence supply order/resources. OCCvisitType: Telephone Patient stated I'm at another doctors office right now, call back in one hour. Education/handouts: Education: Educated patient on: that OCC will call back at 1000 Handouts: No handouts provided MyChart already active and access confirmed with patient. Goals: Goals Addressed This Visit's Progress Obtain incontinence supplies affordably by end of October 2022 (pt-stated) Next Steps: Head Chopper will not follow at this time. documented in this encounter Plan of Treatment Upcoming Encounters Date Type Department Care Team (Late st Contact Info) Description 05/07/2024 1:00 PM EST Office Visit [facility] [place] [facility] [address] [place] [phone] Juana Bailey APRN [address] [place] [address] documented as of this encounter Goals Goal [...] Primary documented in this encounter Care Teams Branch Services Manager Relationship Specialty Start Date End Date Juana Bailey APRN [address] [place] [address] PCP - General Nurse Practitioner-Family 08/29/22 documented as of this encounter
--- OUTSIDE RECORDS SUMMARY | 2024-02-27 14:03 | XMS_ITS | Encounter Summary ---
Author Organization [place] [address] Care Team Providers Care Button Inspector Name Role Phone Juana Bailey APRN Primary Care Provider [phone] Reason for Visit * Reason Comments Medication Refill Encounter Details Date Type Department Care Team (Late st Contact Info) Description 02/04/2023 Refill [facility] [address] [place] [address] Juana Bailey APRN [address] [place] [address] Medication Refill Social History Tobacco Use Types [...] MOUTH ONE TIME PER WEEK 4 Capsule 02/05/2023 3 traZODone (DESYREL) 50 mg Oral TabletIndications: Insomnia, persistent TAKE ONE TABLET BY MOUTH EVERY NIGHT 30 Tablet 02/05/2023 3 hydroCHLOROthiazid e (HYDRODIURIL) 25 mg Oral TabletIndications: Peripheral edema TAKE ONE TABLET BY MOUTH ONCE A DAY 30 Tablet 02/05/2023 3 loratadine (CLARITIN) 10 mg Oral Tablet TAKE ONE TABLET BY MOUTH ONCE A DAY 30 Tablet 02/05/2023 3 allopurinoL (ZYLOPRIM) 300 mg Oral TabletIndications: Elevated uric acid in blood TAKE ONE TABLET BY MOUTH ONCE A DAY 30 Tablet 02/05/2023 3 documented in this encounter Miscellaneous Notes * Telephone Encounter - Peyton Duron CPhT - 02/05/2023 10:24 AM EDT Allopurinol Medication refill request deferred to office staff. systems analyst engineer Reason: Medication noted as not taking Ergocalciferol Medication Refill Protocol not available for this medication. Routed to office staff. Hctz Medication refill request deferred to office staff. systems analyst engineer Reason: Medication noted as not taking Loratadine Medication Refill Protocol not available for this medication. Routed to office staff. Trazodone Medication Refill Protocol not available for this medication. Routed to office staff. documented in this encounter Plan of Treatment Upcoming Encounters Date Type Department Care Team (Late st Contact Info) Description 05/07/2024 1:00 PM EST Office Visit [facility] [place] [facility] [address] [place] [phone] Juana Bailey APRN [address] [place] [address] documented as of this encounter Goals Goal Patient Goal Type Associated Problems Recent Progress Patient-Stated? Author Blood Pressure < 140/90 Blood Pressure 112/70(2023 8:24 AM EDT) No LynnJuana APRN Maintain a healthy diet, exercise regularly and maintain an ideal body weight General No Noelle Yeh RMA BMI (Calculated) < 30 General 38.7(10/24/19 9:24 AM EDT) No RozelJuana, [employer] Stay Tobacco Free Lifestyle No Juana Bailey APRN HEMOGLOBIN A1C < 7.0 Result Component 6.1( 9:55 AM EDT) No Juana Bailey APRN documented as of this encounter Visit Diagnoses Diagnosis Elevated uric acid in blood Other abnormal blood chemistry Peripheral edema Edema Insomnia, persistent Persistent disorder of initiating or maintaining sleep documented in this encounter Discontinued Medications Medication Sig Discontinue Reason Start Date End Da te hydroCHLOROthiazide (HYDRODIURIL) 25 mg Oral TabletIndications:Periph eral edema Take 1 Tablet by mouth daily. 10/25/2022 02/05/2023 allopurinoL (ZYLOPRIM) 300 mg Oral TabletIndications:Elevat ed uric acid in blood Take 1 Tablet by mouth daily. 10/25/2022 02/05/2023 traZODone (DESYREL) 50 mg Oral TabletIndications:Insomn ia, persistent Take 1 Tablet by mouth nightly. 11/07/2022 02/05/2023 loratadine (CLARITIN) 10 mg Oral Tablet TAKE ONE TABLET BY MOUTH ONCE A DAY 01/08/2023 02/05/2023 ergocalciferol (DRISDOL) 1,250 mcg (50,000 unit) Oral Capsule TAKE 1 CAPSULE BY MOUTH ONE TIME PER WEEK 01/08/2023 02/05/2023 documented as of this encounter Care Teams Button Inspector Relationship Specialty Start Date End Date Juana Bailey APRN [address] [place] [address] PCP - General Nurse Practitioner-Family 08/29/22 documented as of this encounter
--- OUTSIDE RECORDS SUMMARY | 2024-02-27 14:03 | XMS_ITS | Encounter Summary ---
Author Organization [place] [address] Care Team Providers Care Automotive Manager Name Role Phone Juana Bailey APRN Primary Care Provider [phone] Reason for Visit * Reason Onset Date Comments Appointment Needed 12/13/2022 TB test Encounter Details Date Type Department Care Team (Late st Contact Info) Description 12/13/2022 Telephone [facility] [place] [address] [place] [address] Juana Bailey APRN [address] [place] [address] Appointment Needed (TB test ) Social History Tobacco Use Types Packs/Day [...] Assessment Author No 11/07/2022 2:28 PM EDT Adlen Crowell CCMA * Is the person blind [...] encounter Miscellaneous Notes * Telephone Encounter - Cristina Portillo RN - 12/14/2022 12:49 PM EDT I had to put her on Mobile Complete for Saturday 8:45, I'm working from [facility] that day. Ramon * Telephone Encounter - aSrah Crowell CCMA - 12/13/2022 4:06 PM EDT Can you do this tomorrow? * Telephone Encounter - Rashida Palma - 12/13/2022 1:43 PM EDT Appointment Needed Appointment Requested By: Patient Provider Preference: Other nurse Type of Appt Needed: Nurse Visit Detailed Reason for Appt: TB test fro new employment Requested Timeframe: Other SAPNA Reason Scheduling Assistance is Needed: Call Center not permitted to schedule Additional Notes: please call and advise documented in this encounter Plan of Treatment Upcoming Encounters Date Type Department Care Team (Late st Contact Info) Description 05/07/2024 1:00 PM EST Office Visit [facility] [address] [place], [place] [phone] Juana Bailey APRN [address] [facility] [place] [address] documented as of this encounter Goals Goal [...] on filedocumented in this encounter Care Teams Automotive Manager Relationship Specialty Start Date End Date Juana Bailey APRN [address] [place] [address] [place] [address] PCP - General Nurse Practitioner-Family 08/29/22 documented as of this encounter
--- OUTSIDE RECORDS SUMMARY | 2024-02-27 14:03 | XMS_ITS | Encounter Summary ---
Author Organization [place] [address] Care Team Providers Care Lithographer Helper Name Role Phone Juana Bailey APRN Primary Care Provider [phone]- [phone] Reason for Visit * Reason Onset Date Comments Results 10/26/2022 Labs Encounter Details Date Type Department Care Team (Late st Contact Info) Description 10/26/2022 Telephone [facility] [address] [place] [phone] Juana Bailey APRN [address] [facility] [address] Results (Labs /) Social History Tobacco Use Types Packs/Day Years [...] Miscellaneous Notes * Telephone Encounter - Melina Rubio - 10/26/2022 8:44 AM EDT Pt returning call to go over lab results changes with ramón Please advise documented in this encounter Plan of Treatment Upcoming Encounters Date Type Department Care Team (Late st Contact Info) Description 05/07/2024 1:00 PM EST Office Visit [facility] [address] [place] [phone] Juana Bailey APRN [address] [facility] [place] [address] documented as of this encounter Goals Goal [...] on filedocumented in this encounter Care Teams Lithographer Helper Relationship Specialty Start Date End Date Juana Bailey APRN [address] [facility] [place] [address] PCP - General Nurse Practitioner-Family 08/29/22 documented as of this encounter
--- OUTSIDE RECORDS SUMMARY | 2024-02-27 14:03 | XMS_ITS | Encounter Summary ---
Author Organization [place] [address] Care Team Providers Care Marketing Communications Associate Name Role Phone Juana Bailey APRN Primary Care Provider [phone] Reason for Referral * Medication Prior Authorization - Authorized Specialty Diagnoses / Procedures Referred By Contac t Referred To Contact Diagnoses Type 2 diabetes mellitus with hyperlipidemia (HCC) Juana Bailey APRN [address] [place] [address] Phone: tel: fax: Referral ID Status Reason Start Date Expiration Date V isits Requested Visits Authorized [id number] Authorized 01/03/2023 01/03/2024 1 1 Reason for Visit * Reason Onset Date Comments Medication Management 01/03/2023 tirzepatid e (MOUNJARO) 2.5 mg/0.5 mL SubQ Pen Injector 2 mL 0 12/20/2022 Sig - Route: Subcutaneous (Inject under the skin) 2.5 mg once a week. - Subcutaneous Sent to pharmacy as: Mounjaro 2.5 mg/0.5 mL subcutaneous pen injector (tirzepatide) E-Prescribing Status: Receipt confirmed by pharmacy (12/20/2022 9:20 AM EDT) Prior authorization: Denied Encounter Details Date Type Department Care Team (Late st Contact Info) Description 01/03/2023 Telephone [facility] [place] [address] [facility] [place] [phone] Juana Bailey APRN [address] [place] [address] Medication Management (tirzepatide (MOUNJARO) 2.5 mg/0.5 mL SubQ Pen Injector 2 mL 0 12/20/2022 /Sig - Route: Subcutaneous (Inject under the skin) 2.5 mg once a week. - Subcutaneous /Sent to pharmacy as: Mounjaro 2.5 mg/0.5 mL subcutaneous pen injector (tirzepatide) /E-Prescribing Status: Receipt confirmed by pharmacy (12/20/2022 9:20 AM EDT) /Prior authorization: Denied //) Social History Tobacco Use Types Packs/Day Years [...] Refills Last Filled Start Date End Date ezetimibe (ZETIA) 10 mg Oral TabletIndications:T ype 2 diabetes mellitus with hyperlipidemia (HCC),Statin myopathy Take 1 Tablet by mouth daily. 90 Tablet 3 3 01/09/20 24 semaglutide 0.25 mg or 0.5 mg (2 mg/3 mL) SubQ Pen InjectorIndications :Type 2 diabetes mellitus with hyperlipidemia (HCC) Subcutaneous (Inject under the skin) 0.25 mg once a week for 28 days, THEN 0.5 mg once a week for 14 days. 3 mL 3 02/15/20 23 documented in this encounter Miscellaneous Notes * Telephone Encounter - Sarah Crowell CCMA - 01/03/2023 3:54 PM EDT Pt notified * Telephone Encounter - Juana Bailey APRN - 01/03/2023 3:39 PM EDT Let pt know esthelaro was not covered. Sent in ozempic instead. Start with 0.25mg weekly for one month, if tolerating well, can increase to 0.5mg weekly. The repatha was also denied. They recommend zetia (this is not a statin). Rx to pharmacy. Thanks * Telephone Encounter - Sarah Crowell CCMA - 01/03/2023 2:28 PM EDT Our guideline named GLP-1 RECEPTOR AGONISTS requires the following rule(s) be met for approval:A. The member has had at least a 3-month trial and therapeutic failure [drug did not work], allergy, contraindication [harmful for] (including potential drug-drug interactions with other medications) or intolerance [side effect] to a preferred GLP-1 agonist [drug in the same group]: Lynda Celaya Victoza.Your doctor told us that you have a diagnosis of type 2 diabetes mellitus (a condition with high blood sugar). We do not have records or chart notes showing that you have tried ONE preferred medication or that you meet the criteria listed above. * Telephone Encounter - Beba White - 01/03/2023 2:05 PM EDT Select the most appropriate reason for this telephone message: Patient Returning Call Reason for call: tirzepatide (MOUNJARO) 2.5 mg/0.5 mL SubQ Pen Injector 2 mL 0 12/20/2022 Sig - Route: Subcutaneous (Inject under the skin) 2.5 mg once a week. - Subcutaneous Sent to pharmacy as: Mounjaro 2.5 mg/0.5 mL subcutaneous pen injector (tirzepatide) E-Prescribing Status: Receipt confirmed by pharmacy (12/20/2022 9:20 AM EDT) Prior authorization: Denied This medication was denied and pt would like a call back from Juana to discuss why Information relayed to patient: sent message Patient has additional questions: Yes, Further follow-up needed? yes Also wants to discuss the cholesterol shot she was supposed to receive. documented in this encounter Plan of Treatment Upcoming Encounters Date Type Department Care Team (Late st Contact Info) Description 05/07/2024 1:00 PM EST Office Visit [facility] [place] [facility] [address] [facility] [place] [phone] Juana Bailey APRN [address] [place] [address] documented as of this encounter Goals Goal Patient Goal Type Associated Problems Recent Progress Patient-Stated? Author Blood Pressure < 140/90 Blood Pressure 112/70(10/23/ 2024 8:24 AM EDT) No Juana Bailey APRN [...] 2 diabetes mellitus with hyperlipidemia (HCC)- Primary Statin myopathy Toxic myopathy documented in this encounter Discontinued Medications Medication Sig Discontinue Reason Start Date End Da te tirzepatide (MOUNJARO) 2.5 mg/0.5 mL SubQ Pen InjectorIndications:Typ e 2 diabetes mellitus with hyperlipidemia (HCC) Subcutaneous (Inject under the skin) 2.5 mg once a week. Cost of medication 12/20/2022 01/03/2023 tirzepatide (MOUNJARO) 5 mg/0.5 mL SubQ Pen InjectorIndications:Typ e 2 diabetes mellitus with hyperlipidemia (HCC) Subcutaneous (Inject under the skin) 5 mg once a week for 28 days. Cost of medication 01/17/2023 01/03/2023 tirzepatide 7.5 mg/0.5 mL SubQ Pen InjectorIndications:Typ e 2 diabetes mellitus with hyperlipidemia (HCC) Subcutaneous (Inject under the skin) 7.5 mg once a week for 28 days. Cost of medication 02/15/2023 01/03/2023 evolocumab 140 mg/mL SubQ Pen InjectorIndications:Dys lipidemia,Myalgia due to statin,ASHD (arteriosclerotic heart disease) Subcutaneous (Inject under the skin) 1 mL every 14 days. Cost of medication 10/25/2022 01/03/2023 documented as of this encounter Care Teams Marketing Communications Associate Relationship Specialty Start Date End Date Juana Bailey [place] [address] [place] [address] PCP - General Nurse Practitioner-Family 08/29/22 documented as of this encounter
--- OUTSIDE RECORDS SUMMARY | 2024-02-27 14:03 | XMS_ITS | Encounter Summary ---
Author Organization [place] [address] Care Team Providers Care Electromatic Typist Name Role Phone Juana Bailey APRN Primary Care Provider [phone] Reason for Visit * Reason Comments Diabetes Medication Management Discuss meds Encounter Details Date Type Department Care Team (Latest Contact Info) Description 11/07/2022 2:30 PM EDT Office Visit [facility] [place] [address] [place] [phone] Juana Bailey APRN [address] [place] [address] Statin myopathy (Primary Dx); Dyslipidemia; Stage 3b chronic kidney disease (HCC); Type 2 diabetes mellitus with hyperlipidemia (HCC) (HCC); Insomnia, persistent; Encounter for screening 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 cancer Social History Tobacco Use Types Packs/Day Years [...] Sign Reading Time Taken Comments Blood Pressure 114/66 11/07/2022 2:29 PM EDT Pulse 74 11/07/2022 2:29 PM EDT Temperature 36.7 ??C (98 ??F) 11/07/2022 2:29 PM EDT Respiratory Rate 20 11/07/2022 2:29 PM EDT Oxygen Saturation 96% 11/07/2022 2:29 PM EDT Inhaled Oxygen Concentration - - Weight 137.4 kg (303 lb) 11/07/2022 2:29 PM EDT Height 165.1 cm (5' 5 ) 11/07/2022 2:29 PM EDT Body Mass Index 50.42 11/07/2022 2:29 PM EDT documented in this [...] (DESYREL) 50 mg Oral TabletIndications: Insomnia, persistent Take 1 Tablet by mouth nightly. 30 Tablet 2 11/07/2022 02/05/2023 documented in this encounter Progress Notes * Juana Bailey APRN - 11/07/2022 2:30 PM EDT Assessment Diagnoses and all orders for this visit: Statin myopathy Dyslipidemia Overview: Myalgia associated with statin Working on getting repatha approved Stage 3b chronic kidney disease (HCC) (Chronic) Overview: 06/2022 GFR 31 Followed by nephrology, on nephrocap Recommend addition of farxiga Type 2 diabetes mellitus with hyperlipidemia (HCC) (Chronic) Overview: 06/2022 A1C 7.1 Metformin intolerance. Rx for farxiga for dual mgmt of CKD Statin intolerance. ACEi/ARB held d/t CKD Trying to get repatha approved. Orders: - EXTERNAL RESULTS REQUEST Insomnia, persistent Overview: Otc meds ineffective Will see if we can get trazodone covered Orders: - traZODone (DESYREL) 50 mg Oral Tablet; Take 1 Tablet by mouth nightly. Dispense: 30 Tablet; Refill: 2 Encounter for screening 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 cancer Comments: hx of breast reduction with some scarring to right breast Orders: - MM MAMMO DIGITAL MARCO SCREEN BILAT; Future Progress Note: Vitals: 11/07/22 1429 BP: 114/66 Pulse: 74 Resp: 20 Temp: 98 ??F (36.7 ??C) TempSrc: Forehead SpO2: 96% Weight: (!) 303 lb (137.4 kg) Height: 5' 5 (1.651 m) SUBJECTIVE: Chief Complaint Patient presents with Diabetes Medication Management Discuss meds HPI: Here to discuss recent labs and med changes. CKD, worsening GFR. Diabetes, tried metformin in past and couldn't tolerate. Has had eye exam. High cholesterol, tried statin in past, couldn't tolerate. Per pt, has known CVD diagnosed by [facility]. Still need those records. Known sleep apnea, can't tolerate cpap, has anxiety Does have trouble falling asleep. Melatonin did help for a short time. Review of Systems Constitutional: Negative for fever. HENT: Negative for congestion. Respiratory: Negative for cough and wheezing. Cardiovascular: Negative for chest pain and palpitations. Musculoskeletal: Positive for arthralgias, back pain and myalgias. Skin: Negative for rash. Psychiatric/Behavioral: Positive for sleep disturbance. The patient is nervous/anxious. OBJECTIVE: Physical Exam Constitutional: Appearance: She is obese. Cardiovascular: Rate and Rhythm: Normal rate and regular rhythm. Heart sounds: Normal heart sounds. Pulmonary: Effort: Pulmonary effort is normal. Breath sounds: Normal breath sounds. Neurological: Mental Status: She is alert and oriented to person, place, and time. Psychiatric: Mood and Affect: Mood normal. Thought Content: Thought content normal. documented in this encounter Plan of Treatment Upcoming Encounters Date Type Department Care Team (Late st Contact Info) Description 05/07/2024 1:00 PM EST Office Visit [facility] [place] [facility] [address] [place] [address] Juana Bailey APRN [address] [facility] [place] [address] documented as of this encounter Goals Goal [...] as of this encounter Visit Diagnoses Diagnosis Statin myopathy- Primary Toxic myopathy Dyslipidemia Other and unspecified hyperlipidemia Stage 3b chronic kidney disease (HCC) Type 2 diabetes mellitus with hyperlipidemia (HCC) Insomnia, persistent Persistent disorder of initiating or maintaining sleep Encounter for screening 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 cancer documented in this encounter Discontinued Medications Medication Sig Discontinue Reason Start Date End Da te metoprolol succinate (TOPROL-XL) 50 mg Oral Tablet Sustained Release 24 hr Take 50 mg by mouth daily. Take 2 times a day DELETE-Duplicate 11/07/2022 oxyCODONE 10 mg Oral Tablet Dose adjustment 11/05/2022 11/07/2022 diclofenac (VOLTAREN) 75 mg Oral Tablet, Delayed Release (E.C.) Dose adjustment 10/17/2022 11/07/2022 documented as of this encounter Historical Medications * This list may reflect changes made after this encounter. Medication Sig Dispense Quantity Refills Last Filled Start D ate End Date Amantadine 100 mg Oral Tablet 08/30/2022 05/22/2023 diclofenac (VOLTAREN) 75 mg Oral Tablet, Delayed Release (E.C.) 10/17/2022 11/07/2022 oxyCODONE 10 mg Oral Tablet 11/05/2022 11/07/2022 added in this encounter Orders Nursing Count Last Ordered Date First Orde red Date EXTERNAL RESULTS REQUEST 1 11/07/2022 documented in this encounter Care Teams Electromatic Typist Relationship Specialty Start Date End Date Juana Bailey APRN [address] [place] [address] PCP - General Nurse Practitioner-Family 08/29/22 documented as of this encounter
--- OUTSIDE RECORDS SUMMARY | 2024-02-27 14:03 | XMS_ITS | Encounter Summary ---
Author Organization [place] [address] Care Team Providers Care Manager Wellness Name Role Phone Juana Bailey APRN Primary Care Provider [phone] Encounter Details Date Type Department Care Team (Late st Contact Info) Description 10/25/2022 Orders Only [facility] [address] [place] [phone] Juana Bailey APRN [address] [place] [address] Elevated uric acid in blood (Primary Dx); Dyslipidemia; Myalgia due to statin; Stage 3b chronic kidney disease (HCC); Type 2 diabetes mellitus with hyperlipidemia (HCC) (HCC); ASHD (arteriosclerotic heart disease); Paroxysmal atrial fibrillation (HCC); RADHA (obstructive sleep apnea); Peripheral edema Social History Tobacco Use Types Packs/Day Years [...] Refills Last Filled Start Date End Date evolocumab 140 mg/mL SubQ Pen InjectorIndications :Dyslipidemia,Myalg ia due to statin,ASHD (arteriosclerotic heart disease) Subcutaneous (Inject under the skin) 1 mL every 14 days. 2 mL 3 01/04/20 allopurinoL (ZYLOPRIM) 300 mg Oral TabletIndications:E levated uric acid in blood Take 1 Tablet by mouth daily. 30 Tablet 2 3 02/06/20 23 hydroCHLOROthiazide (HYDRODIURIL) 25 mg Oral TabletIndications:P eripheral edema Take 1 Tablet by mouth daily. 30 Tablet 2 3 02/06/20 23 dapagliflozin propanediol (FARXIGA) 10 mg Oral TabletIndications:S tage 3b chronic kidney disease (HCC),Type 2 diabetes mellitus with hyperlipidemia (HCC),ASHD (arteriosclerotic heart disease) Take 1 Tablet by mouth daily. 30 Tablet 3 3 03/06/20 23 documented in this encounter Plan of Treatment Upcoming Encounters Date Type Department Care Team (Late st Contact Info) Description 05/07/2024 1:00 PM EST Office Visit [facility] [address] [place] [phone] Juana Bailey APRN [address] [place] [address] documented as of this encounter Goals Goal [...] Bailey APRN documented as of this encounter Results * (ABNORMAL) LIPID PANEL REFLEX (10/23/2022 3:40 PM EDT) [facility] Signature Cholesterol 214(H) <200 mg/dL 10/25/2022 12:49 PM EDT PREFERRED [facility] Comment: < 200 ?Desirable 200 - 239 ? Borderline High >= 240 ?High Triglyceride 269(H) <150 mg/dL 10/25/2022 12:49 PM EDT [facility]REFERRED [facility] Comment: < 150 ? Normal 150 - 199 ?Borderline High 200 - 499 ?High ??>= 500 ? Very High HDL 39(L) >=40 mg/dL 10/25/2022 12:49 PM EDT [facility]REFERR[facility] Comment: ??> 60 ?Optimal 40 - 60 ?Acceptable ?? < 40 ?Low LDL Calculated 127(H) <100 mg/dL 10/25/2022 12:49 PM EDT [facility] Non-HDL-C Calculated 175(H) <=129 mg/dL 10/25/2022 12:49 PM EDT [facility] Comment: <130 ?Desirable 130-159 Above Desirable 160-189 Borderline High 190-219 High >= 220 ??Very High Fasting Specimen? 023 12:49 PM EDT [facility] Blood VENOUS BLOOD / Unknown Venipuncture / Unknown 10/23/2022 3:40 PM EDT 10/23/2022 3:40 PM EDT Juana Bailey PLASTIC DESIGN APPLIER CHEMISTRY ORDERABLES Final Result [facility] [address] [facility] [address], [place] [address] documented in this encounter Visit Diagnoses Diagnosis Elevated uric acid in blood- Primary Other abnormal blood chemistry Dyslipidemia Other and unspecified hyperlipidemia Myalgia due to statin Stage 3b chronic kidney disease (HCC) Type 2 diabetes mellitus with hyperlipidemia (HCC) ASHD (arteriosclerotic heart disease) Coronary atherosclerosis of unspecified type of vessel, modoc or graft Paroxysmal atrial fibrillation (HCC) Atrial fibrillation RADHA (obstructive sleep apnea) Obstructive sleep apnea (adult) (pediatric) Peripheral edema Edema documented in this encounter Discontinued Medications Medication Sig Discontinue Reason Start Date End Da te diclofenac (VOLTAREN) 75 mg Oral Tablet, Delayed Release (E.C.) TAKE ONE TABLET BY MOUTH 2 TIMES A DAY DELETE-Therapy completed 10/17/2022 10/25/2022 triamterene-hydrochlor othiazide (MAXZIDE) 75-50 mg Oral Tablet TAKE ONE TABLET BY MOUTH ONCE A DAY DELETE-Therapy completed 08/29/2022 10/25/2022 documented as of this encounter Care Teams Manager Wellness Relationship Specialty Start Date End Date Juana Bailey APRN [address] [place] [address] PCP - General Nurse Practitioner-Family 08/29/22 documented as of this encounter
--- OUTSIDE RECORDS SUMMARY | 2024-02-27 14:03 | XMS_ITS | Encounter Summary ---
Author Organization [place] [address] Care Team Providers Care Lubricating Specialist Name Role Phone Juana Bailey APRN Primary Care Provider [phone] Reason for Visit * Reason Onset Date Comments Other 02/08/2023 Encounter Details Date Type Department Care Team (Late Contact Info) Description 02/08/2023 Telephone SEP [address] [place] [address] Juana Bailey APRN [address] [facility] [place] [address] Other Social History Tobacco Use Types Packs/Day Years Used Date Smoking Tobacco: Never Smokeless Tobacco: Current Snuff Alcohol Use Standard Drinks/Week Comments Not Currently 0 (1 standard drink = 0.6 oz pur e alcohol) Overall Financial Resource Strain ([facility]) Answe r Date Recorded How hard is it for you to pa y for the very basics like food, housing, medical care, and heating? Not very hard 03/05/2023 PHQ-2 Answer Date Recorded PHQ-2 Total Score 0 11/07/2022 [facility] of Occupat ional Health - Occupational Stress [...] to sleep or slept in a senior care (including now)? No 03/05/2023 Sexually Active Control [...] Author No 11/07/2022 2:28 PM EDAlden Al Yvonne, CCMA * Because of a physical, mental [...] Miscellaneous Notes * Telephone Encounter - Maricruz Joshua CCMA - 02/08/2023 12:43 PM EDT Pt. aware * Telephone Encounter - Melina Mart - 02/08/2023 12:29 PM EDT Select the most appropriate reason for this telephone message: Other Who is calling (name & relationship to patient if not the patient): Patient What is needed OR why are they calling: pt asking how she can find out who did her back surgery in 2014, (chart says [facility] [place], pt states that's not it), When is this needed by: dona Where does this information need to go: Additional information: documented in this encounter Plan of Treatment Upcoming Encounters Date Type Department Care Team (Late st Contact Info) Description 05/07/2024 1:00 PM EST Office Visit [facility] [place] [facility] [address] [place] [phone] Juana Bailey APRN [address] [address] documented as of this encounter Goals Goal [...] on filedocumented in this encounter Care Teams Lubricating Specialist Relationship Specialty Start Date End Date Juana Bailey APRN [address] [place] [address] PCP - General Nurse Practitioner-Family 08/29/22 documented as of this encounter
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
--- OUTSIDE RECORDS SUMMARY | 2024-02-27 14:03 | XMS_ITS | Encounter Summary ---
Author Organization [place] [address] Care Team Providers Care Associate Designer Name Role Phone Juana Bailey APRN Primary Care Provider [phone] Reason for Visit * Reason Comments Other Soft lump right shou lder Encounter Details Date Type Department Care Team (Latest Contact Info) Description 10/23/2022 2:45 PM EDT Office Visit [facility] [place] [address] [place] [address] Juana Bailey APRN [address] [place] [address] Type 2 diabetes mellitus with hyperlipidemia (HCC) (HCC) (Primary Dx); Dyslipidemia; Stage 3b chronic kidney disease (HCC); Normocytic anemia; Screening for thyroid disorder; Myalgia due to statin; Cervical lymphadenopathy; Type 2 diabetes mellitus without complication, unspecified whether nursing home insulin use (HCC); Mixed stress and urge incontinence Social History Tobacco Use Types Packs/Day Years [...] Sign Reading Time Taken Comments Blood Pressure 118/80 10/23/2022 2:52 PM EDT Pulse 71 10/23/2022 2:52 PM EDT Temperature 36.6 ??C (97.9 ??F) 10/23/2022 2:52 PM ED T Respiratory Rate 18 10/23/2022 2:52 PM EDT Oxygen Saturation 98% 10/23/2022 2:52 PM EDT Inhaled Oxygen Concentration - - Weight 135.2 kg (298 lb) 10/23/2022 2:52 PM EDT Height 165.1 cm (5' 5 ) 10/23/2022 2:52 PM EDT Body Mass Index 49.59 10/23/2022 2:52 PM EDT documented in this encounter Progress Notes * Juana Bailey APRN - 10/23/2022 2:45 PM EDT Assessment Diagnoses and all orders for this visit: Type 2 diabetes mellitus with hyperlipidemia (HCC) (Chronic) Overview: 06/2022 A1C 7.1 Recheck labs and follow-up accordingly. Orders: - CBC WITH DIFF; Future - COMPREHENSIVE METABOLIC PANEL; Future - HEMOGLOBIN A1C; Future - LIPID PANEL REFLEX Dyslipidemia Overview: Myalgia associated with statin Rx for zetia. Orders: - COMPREHENSIVE METABOLIC PANEL; Future - LIPID PANEL REFLEX Stage 3b chronic kidney disease (HCC) (Chronic) Overview: 06/2022 GFR 31 Followed by nephrology, rx for nephrocap Orders: - COMPREHENSIVE METABOLIC PANEL; Future - VITAMIN B12/ FOLIC ACID; Future - VITAMIN D 25 HYDROXY; Future - URIC ACID; Future - LIPID PANEL REFLEX Normocytic anemia - CBC WITH DIFF; Future - IRON+TIBC; Future Screening for thyroid disorder - TSH REFLEX; Future - T4, FREE (THYROXINE); Future Myalgia due to statin - LIPID PANEL REFLEX Cervical lymphadenopathy - CBC WITH DIFF; Future Type 2 diabetes mellitus without complication, unspecified whether intermediate teacher insulin use (HCC) (Chronic) - IRIS DIABETIC RETINOPATHY EXAM Mixed stress and urge incontinence Comments: work on kegal exercises, bladder control, avoid caffeine, rx for depends to use as needed Other orders - POCT URINE MICROALBUMIN Progress Note: Vitals: 10/23/22 1452 BP: 118/80 Pulse: 71 Resp: 18 Temp: 97.9 ??F (36.6 ??C) TempSrc: Forehead SpO2: 98% Weight: 298 lb (135.2 kg) Height: 5' 5 (1.651 m) SUBJECTIVE: Chief Complaint Patient presents with Other Soft lump right shoulder HPI: Here for followup New patient for me. Didn't have medical records at last visit. Reviewed most recent labs. DMII, A1C 7.1. not on meds. Dyslipidemia. Extreme body aches with statin CKD, Stage 3. New concerns: Couldn't keep oral contrast down for ct scan Soft nontender mass over right clavicle. Doesn't smoke but chews tobacco. Denies sore throat, trouble swallowing. No unexplained weight loss. Has urinary incontinence. Requesting rx for depends Review of Systems Constitutional: Negative for fever. HENT: Negative for congestion. Respiratory: Negative for cough, shortness of breath and wheezing. Cardiovascular: Negative for chest pain, palpitations and leg swelling. Musculoskeletal: Positive for arthralgias, back pain and myalgias. Hematological: Positive for adenopathy. Does not bruise/bleed easily. OBJECTIVE: Physical Exam Constitutional: Appearance: She is obese. Cardiovascular: Rate and Rhythm: Normal rate and regular rhythm. Heart sounds: Normal heart sounds. Pulmonary: Effort: Pulmonary effort is normal. Breath sounds: Normal breath sounds. Musculoskeletal: Right lower leg: No edema. Left lower leg: No edema. Lymphadenopathy: Upper Body: Right upper body: Supraclavicular adenopathy present. Left upper body: No supraclavicular adenopathy. Skin: General: Skin is dry. Capillary Refill: Capillary refill takes less than 2 seconds. Neurological: Mental Status: She is alert and oriented to person, place, and time. Psychiatric: Mood and Affect: Mood normal. Thought Content: Thought content normal. * Liz Yanes - 10/23/2022 2:45 PM EDT Venipuncture in the right antecubital vein with 21 gauge needle, length 1 1/2 inch. documented in this encounter Miscellaneous Notes * Addendum Note - Jane [place] CCMA - 10/23/2022 2:45 PM EDTAddended by: JANE COLORADO on: 10/23/2022 03:50 PM Modules accepted: Orders documented in this encounter Plan of Treatment Upcoming Encounters Date Type Department Care Team (Late st Contact Info) Description 05/07/2024 1:00 PM EST Office Visit [facility] [place] [facility] [address] [place] [address] [place] APRN [address] [place] [address] documented as of this encounter Goals Goal Patient Goal Type Associated Problems Recent Progress Patient-Stated? Author Blood Pressure < 140/90 Blood Pressure 112/70(2023 8:24 AM EDT) No LynnJuana, WOOD GOUGER Maintain a healthy diet, exercise regularly and maintain an ideal body weight General No Noelle Yeh RMA BMI (Calculated) < 30 General 38.7(10/24/19 9:24 AM EDT) No [place], WOOD GOUGER Stay Tobacco Free Lifestyle No Juana Bailey WOOD GOUGER HEMOGLOBIN A1C < 7.0 Result Component 6.1( 9:55 AM EDT) No Juana Bailey APRN documented as of this encounter Procedures Procedure Name Priority Date/Time Associated Diagnosis Comments IRON+TIBC Routine 10/23/2022 3:40 PM EDT Normocytic anemia LIPID PANEL REFLEX Routine 10/23/2022 3: 40 PM EDT Dyslipidemia Myalgia due to statin Stage 3b chronic kidney disease (HCC) Type 2 diabetes mellitus with hyperlipidemia (HCC) (HCC) VITAMIN B12/ FOLIC ACID Routine 10/23/2022 3:40 PM EDT Stage 3b chronic kidney disease (HCC) TSH REFLEX Routine 10/23/2022 3:40 PM EDT Screening for thyroid disorder VITAMIN D 25 HYDROXY Routine 10/23/2022 3:40 PM EDT Stage 3b chronic kidney disease (HCC) CBC WITH DIFF Routine 10/23/2022 3:40 PM EDT Type 2 diabetes mellitus with hyperlipidemia (HCC) (HCC) Normocytic anemia Cervical lymphadenopathy URIC ACID Routine 10/23/2022 3:40 PM EDT Stage 3b chronic kidney disease (HCC) T4, FREE (THYROXINE) Routine 10/23/2022 3:40 PM EDT Screening for thyroid disorder HEMOGLOBIN A1C Routine 10/23/2022 3:40 PM EDT Type 2 diabetes mellitus with hyperlipidemia (HCC) (HCC) COMPREHENSIVE METABOLIC PANEL Routine 10/23/2022 3:40 PM EDT Type 2 diabetes mellitus with hyperlipidemia (HCC) (HCC) Dyslipidemia Stage 3b chronic kidney disease (HCC) POCT URINE MICROALBUMIN Routine 10/23/2022 3:24 PM EDT IRIS DIABETIC RETINOPATHY EXAM Routine 10/23/2022 10:51 AM EDT Type 2 diabetes mellitus without complication, unspecified whether intermediate teacher insulin use (HCC) documented in this encounter Results * (ABNORMAL) LIPID PANEL REFLEX (10/23/2022 3:40 PM EDT) Pathologist [facility] Cholesterol 214(H) <200 mg/dL 10/25/2022 12:49 PM EDT [facility] [employer] [place] Comment: < 200 ?Desirable 200 - 239 ? Borderline High >= 240 ?High Triglyceride 269(H) <150 mg/dL 10/25/2022 12:49 PM EDT [employer] Comment: < 150 ? Normal 150 - 199 ?Borderline High 200 - 499 ?High ??>= 500 ? Very High HDL 39(L) >=40 mg/dL 10/25/2022 12:49 PM EDT [facility] Comment: ??> 60 ?Optimal 40 - 60 ?Acceptable ?? < 40 ?Low LDL Calculated 127(H) <100 mg/dL 10/25/2022 12:49 PM EDT [facility] Non-HDL-C Calculated 175(H) <=129 mg/dL 10/25/2022 12:49 PM EDT [facility] Comment: <130 ?Desirable 130-159 Above Desirable 160-189 Borderline High 190-219 High >= 220 ??Very High Fasting Specimen? 023 12:49 PM EDT [facility] [employer] [employer] Blood VENOUS BLOOD / Unknown Venipuncture / Unknown 10/23/2022 3:40 PM EDT 10/23/2022 3:40 PM EDT Juana Bailey WOOD GOUGER CHEMISTRY ORDERABLES Final Result Performing Organization Address City/[facility] Co de Phone Number [facility] [address] [facility] , [place] [address] * IRON+TIBC (10/23/2022 3:40 PM EDT) Iron 88 30 - 160 mcg/dL 10/23/2022 10:16 PM EDT [facility] Transferrin 209 200 - 360 mg/dL 10/23/2022 10:16 PM EDT [facility] Transferrin Saturation 30 20 - 50 % 10/23/2022 10:16 PM EDT [facility] TIBC 293 250 - 400 mcg/dL 10/23/2022 10:16 PM EDT [facility] Blood VENOUS BLOOD / Unknown Venipuncture / Unknown 10/23/2022 3:40 PM EDT 10/23/2022 3:40 PM EDT Juana Bailey WOOD GOUGER CHEMISTRY ORDERABLES Final Result Performing Organization Address [facility] de Phone Number [facility] [address] [facility] , [place] [address] * (ABNORMAL) URIC ACID (10/23/2022 3:40 PM EDT) [facility] Uric Acid 8.1(H) 2.4 - 5.7 mg/dL 10/23/2022 10:16 PM EDT [facility] [employer] [facility] Blood VENOUS BLOOD / Unknown Venipuncture / Unknown 10/23/2022 3:40 PM EDT 10/23/2022 3:[address] [facility] ORDERABLES Final Result Performing Organization Address [facility] Phone Number [facility] [employer] , [place] [address] * VITAMIN D 25 HYDROXY (10/23/2022 3:40 PM EDT) [facility] Vit D 25 OH 32.6 30.0 - 150.0 ng/mL 10/23/2022 7:36 PM EDT [facility] [employer] [facility] Comment: Preferred: >= 30 ng/mL Insufficient: 21-29 ng/mL Deficient <= 20 ??ng/mL Possible Toxicity: >150 ng/mL Samples should not be taken from patients receiving therapy with high biotin doses (i.e. > 5 mg/day) until at least 8 hours following the last biotin administration. Blood VENOUS BLOOD / Unknown Venipuncture / Unknown 10/23/2022 3:40 PM EDT 10/23/2022 3:40 PM EDT [facility] CHEMISTRY ORDERABLES Final Result Performing Organization Address [facility] Co de Phone Number [facility] [address] [facility] , [place] [address] * VITAMIN B12/ FOLIC ACID (10/23/2022 3:40 PM EDT) [facility] Vitamin B12 921 232 - 1,245 pg/mL 10/23/2022 7:37 PM EDT [facility] Folate >16.00 >=4.80 ng/mL 10/23/2022 7:37 PM EDT [facility] Blood VENOUS BLOOD / Unknown Venipuncture / Unknown 10/23/2022 3:40 PM EDT 10/23/2022 3:40 PM EDT Narrative [facility] - 10/23/2022 7:37 PM EDT Ingestion of omar doses of biotin (>5 mg/day) taken within 8 hours of drawing blood sample can interfere with this immunoassay test. [facility] CHEMISTRY ORDERABLES Final Result Performing Organization Address [facility] Co de Phone Number [address] , [place] [address] * T4, FREE (THYROXINE) (10/23/2022 3:40 PM EDT) Free T4 1.17 0.80 - 1.80 ng/dL 10/23/2022 10:16 PM EDT [facility] Blood VENOUS BLOOD / Unknown Venipuncture / Unknown 10/23/2022 3:40 PM EDT 10/23/2022 3:40 PM EDT Narrative [facility] - 10/23/2022 10:16 PM EDT Ingestion of omar doses of biotin (>5 mg/day) taken within 8 hours of drawing blood sample can interfere with this immunoassay test. [facility] CHEMISTRY ORDERABLES Final Result Performing Organization Address [facility] Co de Phone Number [address] , [place] [address] * TSH REFLEX (10/23/2022 3:40 PM EDT) TSH Reflex 2.020 0.270 - 4.200 mcIU/mL 10/23/2022 10:16 PM EDT [facility] Blood VENOUS BLOOD / Unknown Venipuncture / Unknown 10/23/2022 3:40 PM EDT 10/23/2022 3:40 PM EDT Narrative [facility] [employer] [facility] - 10/23/2022 10:16 PM EDT Ingestion of omar doses of biotin (>5 mg/day) taken within 8 hours of drawing blood sample can interfere with this immunoassay test. [facility] Lynn [facility] CHEMISTRY ORDERABLES Final Result Performing Organization Address [facility] Co de Phone Number [facility] [employer] , [address] [place] [id number] * (ABNORMAL) HEMOGLOBIN A1C (10/23/2022 3:40 PM EDT) Hgb A1C 7.6(H) 4.2 - 5.6 % 10/23/2022 8:40 PM EDT [facility] [employer] [facility] Est. Avg Glucose 171 mg/dL 10/23/2022 8:40 PM EDT [facility] [employer] [facility] Blood VENOUS BLOOD / Unknown Venipuncture / Unknown 10/23/2022 3:40 PM EDT 10/23/2022 3:40 PM EDT Narrative [facility] [employer] [facility] - 10/23/2022 8:40 PM EDT REFERENCE RANGE: Normal: 4.0-5.6% Pre-diabetes: 5.7-6.4% Provisional diagnosis of diabetes: >6.4% Hgb F>10% and anything which shortens red cell survival, such as hemolytic anemia, or unstable hemoglobin variants such as HbSS, HbSC, or HbCC, will lower the HbA1c value associated with a given level of glycemic control. ? Juana Bailey WOOD GOUGER CHEMISTRY ORDERABLES Final Result Performing Organization Address [facility] Co de Phone Number [facility] [employer] , [place] [address] * (ABNORMAL) COMPREHENSIVE METABOLIC PANEL (10/23/2022 3:40 PM EDT) Sodium 134(L) 136 - 145 mmol/L 10/23/2022 10:16 PM EDT [facility] Potassium 3.7 3.5 - 5.0 mmol/L 10/23/2022 10:16 PM EDT [facility] Chloride 97(L) 98 - 107 mmol/L 10/23/2022 10:16 PM EDT [facility] Total CO2 24 22 - 29 mmol/L 10/23/2022 10:16 PM EDT [facility] Anion Gap 13 7 - 16 mmol/L 10/23/2022 10:16 PM EDT [facility] Calcium 9.3 8.6 - 10.4 mg/dL 10/23/2022 10:16 PM EDT [facility] Glucose Lvl 129(H) 74 - 100 mg/dL 10/23/2022 10:16 PM EDT [facility] BUN 30(H) 6 - 20 mg/dL 10/23/2022 10:16 PM EDT [facility] Creatinine 1.44(H) 0.51 - 1.30 mg/dL 10/23/2022 10:16 PM EDT [facility] Albumin 4.1 3.5 - 5.2 gm/dL 10/23/2022 10:16 PM EDT [facility] Total Protein 7.3 6.4 - 8.3 gm/dL 10/23/2022 10:16 PM EDT [facility] Bili Total 0.4 0.2 - 1.3 mg/dL 10/23/2022 10:16 PM EDT [facility] ALT 32 <=41 U/L 10/23/2022 10:16 PM EDT [facility] AST 39 <=40 U/L 10/23/2022 10:16 PM EDT [facility] Alk Phos 102 36 - 123 U/L 10/23/2022 10:16 PM EDT [facility] eGFR (CKD-EPIcr 2020) 43(L) >=60 mL/min/1.7 3 m2 10/23/2022 10:16 PM EDT [facility] Comment:Estimated GFR was ca lculated using the CKD-EPIcr (2020) equation refit without race. The equation is recommended by the National Kidney Foundation - [place] Society of Nephrology Task Force. Blood VENOUS BLOOD / Unknown Venipuncture / Unknown 10/23/2022 3:40 PM EDT 10/23/2022 3:40 PM EDT Juana Lynn WOOD GOUGER CHEMISTRY ORDERABLES Final Result [facility] [address] [facility], [place] [address] [facility] [address] [place] [id number] * (ABNORMAL) CBC WITH DIFF (10/23/2022 3:40 PM EDT) WBC 10.1 3.7 - 10.3 x10(3)/mcL 10/23/2022 6:59 PM EDT [facility] RBC 3.68(L) 3.90 - 5.20 x10(6)/mcL 10/23/2022 6:59 PM EDT [facility] Hgb 11.3 11.2 - 15.7 g/dL 10/23/2022 6:59 PM EDT [facility] Hct 34.9 34.0 - 45.0 % 10/23/2022 6:59 PM EDT [facility] MCV 94.8 80.0 - 100.0 fL 10/23/2022 6:59 PM EDT [facility] MCH 30.7 26.0 - 34.0 pg 10/23/2022 6:59 PM EDT [facility] MCHC 32.4 30.7 - 35.5 g/dL 10/23/2022 6:59 PM EDT [facility] RDW 12.2 <=14.9 % 10/23/2022 6:59 PM EDT [facility] Platelet 213 155 - 369 x10(3)/mcL 10/23/2022 6:59 PM EDT [facility] MPV 12.1 8.8 - 12.5 fL 10/23/2022 6:59 PM EDT [facility] Neut Percent 63.5 % 10/23/2022 6:59 PM EDT [facility] Comment:Neutrophils equals s egs plus bands Imm Gran% 0.5 % 10/23/2022 6:59 PM EDT [facility] Comment:Automated count of m etamyelocytes, myelocytes and promyelocytes. Lymph Percent 24.0 % 10/23/2022 6:59 PM EDT [facility] [place] Percent 6.9 % 10/23/2022 6:59 PM EDT [facility] Eos Percent 4.5 % 10/23/2022 6:59 PM EDT [facility] Baso Percent 0.6 % 10/23/2022 6:59 PM EDT [facility] Neut # 6.4(H) 1.6 - 6.1 x10(3)/[facility] 10/23/2022 6:59 PM EDT [facility] Comment:Neutrophils equals s egs plus bands IMMGRAN# 0.1 0.0 - 0.1 x10(3)/[facility] 10/23/2022 6:59 PM EDT [facility] Comment:Automated count of m etamyelocytes, myelocytes and promyelocytes. An absolute IG <0.1 is reported as 0.0. Lymph # 2.4 1.2 - 3.9 x10(3)/[facility] 10/23/2022 6:59 PM EDT [facility] [place] # 0.7 0.3 - 0.9 x10(3)/[facility] 10/23/2022 6:59 PM EDT [facility] Eos# 0.5 0.0 - 0.5 x10(3)/[facility] 10/23/2022 6:59 PM EDT [facility] Baso # 0.1 0.0 - 0.1 x10(3)/[facility] 10/23/2022 6:59 PM EDT [facility] Blood VENOUS BLOOD / Unknown Venipuncture / Unknown 10/23/2022 3:40 PM EDT 10/23/2022 3:40 PM EDT us Juana Bailey WOOD GOUGER HEMATOLOGY ORDERABLES Final Result [facility] [address] [facility] , [address] [place] [id number] * (ABNORMAL) POCT URINE MICROALBUMIN (10/23/2022 3:24 PM EDT) Microalb, Ur 80 mg/L 10/24/2022 8:39 AM EDT [facility] Creatinine Urine 200 mg/dL 10/24/2022 8:39 AM EDT [facility] [employer] Video [employer]. Ratio 30 - 300(A) <30 mg/g 10/24/2022 8:39 AM EDT [facility] Urine URINE SPECIMEN COLLECTION / Unknown 10/23/2022 3:24 PM EDT 10/24/2022 8:39 AM EDT Juana Bailey WOOD GOUGER POINT OF CARE TEST ORDERABL ES Final Result [facility] [address] [place] [address] * (ABNORMAL) IRIS DIABETIC RETINOPATHY EXAM (10/23/2022 10:51 AM EDT) Pathologist [facility] Retinopathy Exam Severity ALERT(A) [facility] Right Diabetic Retinopathy None [facility] Right Macular Edema None [facility] Right Other Retina Not Gradable(A) [facility] Right Eye Image Quality Not Gradable Image [facility] Left Diabetic Retinopathy None [facility] Left Macular Edema None [facility] Left Other Retina None [facility] Left Eye Image Quality Gradable Image [facility] 10/23/2022 10:5 1 AM EDT 10/23/2022 10:51 AM EDT Impressions [facility] - 10/24/2022 1:02 PM EDT Retinal Study Result for JANE FARIAS, a 52 y/o, F (: 1970, ) presented to [facility] on 10-23-2022 for a retinal imaging study of the left and right eyes. Based on the findings of the study, the following is recommended for JANE FARIAS Not Gradable Eye(s) Found: Image(s) not gradable. ? ? ?Please schedule an appointment with Ophthalmology for further evaluation within 3 months. Interpreting Provider's Comments: ??No comments provided Diagnoses Present: E119 - Type 2 diabetes mellitus without complications Right eye findings: Image not gradable for reasons listed: No View to Retina Left eye findings: Negative for Diabetic Retinopathy Negative for Macular Edema This result was electronically signed by Jerri Espinal MD, , Taxonomy: [id number] on 10-24-2022 22:02 [facility]. NOTE: ??Any pathology noted on this diabetic retinal evaluation should be confirmed by an appropriate ophthalmic examination. Juana Bailey APRN OPHTHALMOLOGY SERVICES ORDE KVNG Final Result [facility] [address] [place] [address] documented in this encounter Visit Diagnoses Diagnosis Type 2 diabetes mellitus with hyperlipidemia (HCC)- Primary Dyslipidemia Other and unspecified hyperlipidemia Stage 3b chronic kidney disease (HCC) Normocytic anemia Anemia, unspecified Screening for thyroid disorder Myalgia due to statin Cervical lymphadenopathy Enlargement of lymph nodes Type 2 diabetes mellitus without complication, unspecified whether nursing home insulin use (HCC) Mixed stress and urge incontinence documented in this encounter Care Teams Associate Designer Relationship Specialty Start Date End Date Juana Bailey APRN [facility] [place] [address] PCP - General Nurse Practitioner-Family 08/29/22 documented as of this encounter
--- OUTSIDE RECORDS SUMMARY | 2024-02-27 14:03 | XMS_ITS | Encounter Summary ---
Author Organization [place] [address] Care Team Providers Care City Engineer Name Role Phone Juana Bailey ZAHRA Primary Care Provider [phone] Reason for Visit * Reason Comments Care Transition Care Management - Face To Face CM-PPD Placement Encounter Details Date Type Department Care Team (Late st Contact Info) Description 12/18/2022 8:45 AM EDT Office Visit [facility] [address] [place] [phone] [facility] Screening for tuberculosis (Primary Dx) Social History Tobacco Use Types [...] Progress Notes * Cristina Portillo RN - 12/18/2022 8:45 AM EDT Patient presented for Purified Protein Derivative (PPD) test on 12/18/2022 at 0845: Patient symptoms/complaints assessed: Patient denies persistent cough, hemoptysis, night sweats, anorexia, fatigue, weakness, chest pain,fever, chills, unexplained weight loss, having received a live virus vaccine in the last 4 weeks, previous positive TB test result or a previous BCG/ TB vaccine PPD placed in Right forearm. Patient tolerated placement of PPD well. Education/Next steps: Patient will follow up with office day care home provider on 12/20/22 at 0845 documented in this encounter Plan of Treatment Upcoming Encounters Date Type Department Care Team (Late st Contact Info) Description 05/07/2024 1:00 PM EST Office Visit [facility] [address] [place] [phone] Juana Bailey APRN [address] [place] [address] documented as of this encounter Goals Goal [...] as of this encounter Visit Diagnoses Diagnosis Screening for tuberculosis- Primary Screening examination for pulmonary tuberculosis documented in this encounter Orders Nursing Count Last Ordered Date First Orde red Date PLACE PPD 1 12/18/2022 documented in this encounter Care Teams City Engineer Relationship Specialty Start Date End Date Juana Bailey APRN [address] [place] [address] PCP - General Nurse Practitioner-Family 08/29/22 documented as of this encounter
--- OUTSIDE RECORDS SUMMARY | 2024-02-27 14:03 | XMS_ITS | Encounter Summary ---
Author Organization [place] [address] Care Team Providers Care Undergraduate Advisor Name Role Phone Juana Bailey APRN Primary Care Provider [phone] Reason for Visit * Reason Comments Medication Refill Encounter Details Date Type Department Care Team (Late st Contact Info) Description 03/19/2023 Refill SEP Nati [address] [place] [phone] Juana Bailey APRN [address] [facility] [place] [address] Medication Refill Social History Tobacco Use Types Packs/Day Years Used Date Smoking Tobacco: Never Smokeless Tobacco: Current Snuff Alcohol Use Standard Drinks/Week Comments Not Currently 0 (1 standard drink = 0.6 oz pur e alcohol) Overall Financial Resource Strain ([facility]) [place] r Date Recorded How hard is it for you to pa y for the very basics like food, housing, medical care, and heating? Not very hard 03/05/2023 PHQ-2 Answer Date Recorded PHQ-2 Total Score 0 11/07/2022 [facility] [place] of Occupat ional Health - Occupational Stress [...] MOUTH 2 TIMES A DAY 60 Tablet 03/19/2023 04/23/2023 documented in this encounter Miscellaneous Notes * Telephone Encounter - Peyton Duron CPhT - 03/19/2023 11:38 AM EST Medication Refill Protocol not available for this medication. Routed to office staff. documented in this encounter Plan of Treatment Upcoming Encounters Date Type Department Care Team (Late st Contact Info) Description 05/07/2024 1:00 PM EST Office Visit ASHELY PATEL [address] [place] [phone] Juana Bailey APRN [address] [place] [address] documented as of this encounter Goals Goal [...] Bailey APRN Stay Tobacco Free Lifestyle No [place], [place], LAWN CARE WORKER HEMOGLOBIN A1C < 7.0 Result Component 6.1( 4 9:55 AM EDT) No Juana Bailey APRN documented as of this encounter Visit Diagnoses Not on filedocumented in this encounter Discontinued Medications Medication Sig Discontinue Reason Start Date End Da te flecainide (TAMBOCOR) 50 mg Oral Tablet TAKE ONE TABLET BY MOUTH 2 TIMES A DAY 12/18/2022 03/19/2023 documented as of this encounter Care Teams Undergraduate Advisor Relationship Specialty Start Date End Date Juana Bailey APRN [address] [place], [place] [address] PCP - General Nurse Practitioner-Family 08/29/22 documented as of this encounter
--- OUTSIDE RECORDS SUMMARY | 2024-02-27 14:03 | XMS_ITS | Encounter Summary ---
Author Organization [place] [address] Care Team Providers Care Vacuum Cleaner Operator Name Role Phone Juana Bailey APRN Primary Care Provider [phone] Reason for Visit * Reason Comments Medication Refill Encounter Details Date Type Department Care Team (Late st Contact Info) Description 03/06/2023 Refill SEP Nati [address] [place] [phone] Juana Bailey APRN [address] [facility] [place] [address] Medication Refill Social History Tobacco Use Types Packs/Day Years Used Date Smoking Tobacco: Never Smokeless Tobacco: Current Snuff Alcohol Use Standard Drinks/Week Comments Not Currently 0 (1 standard drink = 0.6 oz pur e alcohol) Overall Financial Resource Strain ([facility]) [place] r Date Recorded How hard is it for you to pa y for the very basics like food, housing, medical care, and heating? Not very hard 03/05/2023 PHQ-2 Answer Date Recorded PHQ-2 Total Score 0 11/07/2022 [facility] [place] of Occupat ional Health - Occupational Stress [...] Refills Last Filled Start Date End Date hydroCHLOROthiazide 25 mg Oral TabletIndications:Pe ripheral edema TAKE ONE TABLET BY MOUTH ONCE A DAY 90 Tablet 3 03/06/2023 allopurinoL (ZYLOPRIM) 300 mg Oral TabletIndications:El evated uric acid in blood TAKE ONE TABLET BY MOUTH ONCE A DAY 90 Tablet 3 03/06/2023 dapagliflozin propanediol (FARXIGA) 10 mg Oral TabletIndications:St age 3b chronic kidney disease (HCC),Type 2 diabetes mellitus with hyperlipidemia (HCC),ASHD (arteriosclerotic heart disease) TAKE ONE TABLET BY MOUTH ONCE A DAY 90 Tablet 1 03/06/2023 4 ergocalciferol (DRISDOL) 1,250 mcg (50,000 unit) Oral Capsule TAKE 1 CAPSULE BY MOUTH ONE TIME PER WEEK 4 Capsule 03/06/2023 3 traZODone (DESYREL) 50 mg Oral TabletIndications:In somnia, persistent TAKE ONE TABLET BY MOUTH EVERY NIGHT 30 Tablet 03/06/2023 3 loratadine (CLARITIN) 10 mg Oral Tablet TAKE ONE TABLET BY MOUTH ONCE A DAY 30 Tablet 03/06/2023 3 documented in this encounter Miscellaneous Notes * Telephone Encounter - Maricruz Quiroz CPhT - 03/06/2023 4:15 PM EST Allopurinol 300- Medication Refill Protocol passed. [facility] Action: Approved 90 day supply with sufficient refills to noted follow-up date by provider or protocol if no follow-up date noted, not to exceed 90 days past that date. Loratadine- Medication Refill Protocol not available for this medication. Routed to office staff. Hctz 25- Medication Refill Protocol passed. solder deposit operator Action: Approved 90 day supply with sufficient refills to noted follow-up date by provider or protocol if no follow-up date noted, not to exceed 90 days past that date. Trazodone- Medication Refill Protocol not available for this medication. Routed to office staff. Vitamin d2- Medication Refill Protocol not available for this medication. Routed to office staff. Farxiga 10- Medication Refill Protocol passed. solder deposit operator Action: Approved 90 day supply with sufficient refills to noted follow-up date by provider or protocol if no follow-up date noted, not to exceed 90 days past that date. documented in this encounter Plan of Treatment Upcoming Encounters Date Type Department Care Team (Late st Contact Info) Description 05/07/2024 1:00 PM EST Office Visit ASHELY PATEL [address] [place] [phone] Juana Bailey APRN [address] [place] [address] documented as of this encounter Goals Goal [...] Persistent disorder of initiating or maintaining sleep Stage 3b chronic kidney disease (HCC) Type 2 diabetes mellitus with hyperlipidemia (HCC) ASHD (arteriosclerotic heart disease) Coronary atherosclerosis of unspecified type of vessel, quileute or graft documented in this encounter Discontinued Medications Medication Sig Discontinue Reason Start Date End Da te allopurinoL (ZYLOPRIM) 300 mg Oral TabletIndications:Elevated uric acid in blood TAKE ONE TABLET BY MOUTH ONCE A DAY 02/05/2023 03/06/2023 dapagliflozin propanediol (FARXIGA) 10 mg Oral TabletIndications:Stage 3b chronic kidney disease (HCC),Type 2 diabetes mellitus with hyperlipidemia (HCC),ASHD (arteriosclerotic heart disease) Take 1 Tablet by mouth daily. 10/25/2022 03/06/2023 hydroCHLOROthiazide (HYDRODIURIL) 25 mg Oral TabletIndications:Peripher al edema TAKE ONE TABLET BY MOUTH ONCE A DAY 02/05/2023 03/06/2023 loratadine (CLARITIN) 10 mg Oral Tablet TAKE ONE TABLET BY MOUTH ONCE A DAY 02/05/2023 03/06/2023 traZODone (DESYREL) 50 mg Oral TabletIndications:Insomnia , persistent TAKE ONE TABLET BY MOUTH EVERY NIGHT 02/05/2023 03/06/2023 ergocalciferol (DRISDOL) 1,250 mcg (50,000 unit) Oral Capsule TAKE 1 CAPSULE BY MOUTH ONE TIME PER WEEK 02/05/2023 03/06/2023 documented as of this encounter Care Teams Vacuum Cleaner Operator Relationship Specialty Start Date End Date Juana Bailey APRN [address] [place], [place] [address] PCP - General Nurse Practitioner-Family 08/29/22 documented as of this encounter
--- OUTSIDE RECORDS SUMMARY | 2024-02-27 14:04 | XMS_ITS | Encounter Summary ---
Author Organization [place] [address] Care Team Providers Care Screwdown Operator Name Role Phone Juana Bailey APRN Primary Care Provider Reason for Visit * Reason Comments Medication Refill Encounter Details Date Type Department Care Team (Late Contact Info) Description 08/29/2022 Refill SEP Nati PATEL [address] [place] [phone] Juana Bailey APRN [address] [place] [address] Medication Refill Social History Tobacco Use Types [...] BY MOUTH ONCE A DAY 30 Tablet 08/29/2022 10/03/2022 documented in this encounter Plan of Treatment Upcoming Encounters Date Type Department Care Team (Late Contact Info) Description 05/07/2024 1:00 PM EST Office Visit ASHELY Damian [address] [place] [phone] Juana Bailey APRN [address] [facility] [place] [address] documented as of this encounter Goals Goal Patient Goal Type Associated Problems Recent Progress Patient-Stated? Author Blood Pressure < 140/90 Blood Pressure 112/70(2023 8:24 AM EDT) No Juana Bailey APRN Maintain a healthy diet, exercise regularly and maintain an ideal body weight General No Noelle Yeh RMA Stay Tobacco Free Lifestyle No Juana Bailey APRN documented as of this encounter Visit Diagnoses Not on filedocumented in this encounter Discontinued Medications Medication Sig Discontinue Reason Start Date End Da te loratadine (CLARITIN) 10 mg Oral Tablet Take 10 mg by mouth daily. Take once a day 08/29/2022 documented as of this encounter Care Teams Screwdown Operator Relationship Specialty Start Date End Date Juana Bailey APRN [address] [place] [address] B[place] [address] PCP - General Nurse Practitioner-Family 08/29/22 documented as of this encounter
--- OUTSIDE RECORDS SUMMARY | 2024-02-27 14:04 | XMS_ITS | Encounter Summary ---
Author Organization [facility] Address [address] [facility] [place] [address] Care Team Providers Care Provisioning Specialist Name Role Phone Juana Bailey APRN Primary Care Provider Encounter Details Date Type Department Care Team (Late st Contact Info) Description 10/17/2022 11:59 PM EDT Anesthesia Event GRT ENDOSCOPY [address] [facility] [place] [address] Kishor Saavedra DO [address] [place] [address] [address] [place] [address] Anesthesia Record Procedure Summary Procedure Name Responsible Anesthesiologist Anesthesia Start Time Anesthesia Stop Time ENDO COLONOSCOPY (canceled) Events No events on file. Meds * Agents No agents on file. * Blood No blood administrations on file. Lines, Drains, and Airways No LDAs on file. documented in this encounter Social History Tobacco Use Types Packs/Day Years [...] on file documented as of this encounter OR Notes * Anesthesia Preprocedure Evaluation - Kishor Saavedra DO - 10/17/2022 8:44 AM EDT Pre-Anesthesia Evaluation Note Patient Name: Jane Madden Sex: female Patient : 1970 Age: 52 y.o. Patient Date: October 17, 2022 Anesthesia Evaluation Previous anesthesia. No history of anesthetic complications: Airway Dental Pulmonary Cardiovascular (+)Hypertension: Arrhythmias: Neuro/Psych (+) Headaches: GI/Hepatic/Renal (+) GERD/PUD: Endo/Other (+)Obese: QUILL LAYER Additional Pre-evaluation comments Opioids There is no height or weight on file to calculate BMI. Anesthesia Plan ASA 2 Anesthesia Plan: MAC Induction: intravenous Monitors: STD Chart Reviewed documented in this encounter Plan of Treatment Upcoming Encounters Date Type Department Care Team (Late st Contact Info) Description 05/07/2024 1:00 PM EST Office Visit ASHELY PATEL [address] [place] [phone] Juana Bailey APRN [address] [facility] [place] [address] documented as of this encounter Goals Goal Patient Goal Type Associated Problems Recent Progress Patient-Stated? Author Blood Pressure < 140/90 Blood Pressure 112/70(2023 8:24 AM EDT) No Juana Bailey APRN Maintain a healthy diet, exercise regularly and maintain an ideal body weight General No Noelle Yeh, RMA Stay Tobacco Free Lifestyle No Juana Bailey APRN documented as of this encounter Visit Diagnoses Not on filedocumented in this encounter Care Teams Provisioning Specialist Relationship Specialty Start Date End Date Juana Bailey APRN [address] [place] [address] PCP - General Nurse Practitioner-Family 08/29/22 documented as of this encounter
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
--- OUTSIDE RECORDS SUMMARY | 2024-02-27 14:04 | XMS_ITS | Encounter Summary ---
Author Organization [facility] Address [address] [facility] [place] [address] Care Team Providers Care Quality Liaison Name Role Phone Unavailable Primary Care Provider Unavailabl e Encounter Details Date Type Department Care Team (Late st Contact Info) Description 07/19/1999 11:07 AM EDT - 08/22/1999 11:59 PM EDT Hospital Encounter [facility] [address] [facility] [place] [address] Social History Tobacco Use Types Packs/Day Years Used Date Smoking Tobacco: Never Assessed Comments Unknown Sex and Gender Information Value Date Recorded Sex Assigned at Not on file Legal Sex Female 11:17 AM EDT Gender Identity Not on file Sexual Orientation Not on file documented as of this encounter Plan of Treatment Upcoming Encounters Date Type Department Care Team (Late st Contact Info) Description 05/07/2024 1:00 PM EST Office Visit [facility] [address] [place] [phone] Juana Bailey, MAILING CLERK [address] [place] [address] documented as of this encounter Visit Diagnoses Not on filedocumented in this encounter
--- OUTSIDE RECORDS SUMMARY | 2024-02-27 14:04 | XMS_ITS | Clinical Summary ---
Author Organization Healthcare Address [address] [place] [address] Care Team Providers Care Molder Machine Tender Name Role Phone Gamal Queen MD Primary Care Provider [phone] Family History 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 Relation Name Comments Diabetes Other 1 Other cancer Other 2 Heart Problem Other 3 Relation Name Status Comments Other 1 Other 2 Other 3 Social History Tobacco Use Types Packs/Day Years Used Date Smoking Tobacco: Never Comments Unknown Sex and Gender Information Value Date Recorded Sex Assigned at Not on file Legal Sex Female 7:39 PM EDT Gender Identity Not on file Sexual Orientation Not on file Last Filed Vital Signs Vital Sign Reading Time Taken Comments Blood Pressure 130/86 02/13/2019 8:55 AM EDT Pulse - - Temperature - - Respiratory Rate - - Oxygen Saturation - - Inhaled Oxygen Concentration - - Weight 121 kg (266 lb 8.6 oz) 02/13/2019 8:55 AM EDT Height 165.1 cm (5' 5 ) 02/13/2019 8:55 AM EDT Body Mass Index 44.35 02/13/2019 8:55 AM EDT Plan of Treatment Not on file Care Teams Molder Machine Tender Relationship Specialty Start Date End Date Gamal Queen MD [address] [place] [address] PCP - General 08/26/20
--- OUTSIDE RECORDS SUMMARY | 2024-02-27 14:04 | XMS_ITS | Encounter Summary ---
Author Organization Healthcare Address [address] [place] [address] Care Team Providers Care Aviation Tactical Readiness Officer Name Role Phone Unavailable Primary Care Provider Unavailabl e Encounter Details Date Type Department Care Team (Late st Contact Info) Description 12/15/2015 [facility] Vitals Encounter [facility] OUTPATIENT CONVERSIONS [address] [place] [address] ProviderAnne-Marie MD [address] [place] [address] Social History Tobacco Use Types Packs/Day Years Used Date Smoking Tobacco: Never Assessed Comments Unknown Sex and Gender Information Value Date Recorded Sex Assigned at Not on file Legal Sex Female 7:39 PM EDT Gender Identity Not on file Sexual Orientation Not on file documented as of this encounter Last Filed Vital Signs Vital Sign Reading Time Taken Comments Blood Pressure - - Pulse - - Temperature - - Respiratory Rate - - Oxygen Saturation - - Inhaled Oxygen Concentration - - Weight 116 kg (255 lb 4.7 oz) 12/15/2015 3:28 PM EDT Height 162.6 cm (5' 4 ) 12/15/2015 3:28 PM EDT Body Mass Index 43.82 12/15/2015 3:28 PM EDT documented in this encounter Plan of Treatment Not on file documented as of this encounter Visit Diagnoses Not on filedocumented in this encounter
--- OUTSIDE RECORDS SUMMARY | 2024-02-27 14:04 | XMS_ITS | Encounter Summary ---
Author Organization Healthcare Address [address] [place] [address] Care Team Providers Care Credit Rating Checker Name Role Phone Unavailable Primary Care Provider Unavailabl e Encounter Details Date Type Department Care Team (Late st Contact Info) Description 01/02/2016 [facility] Vitals Encounter [facility] OUTPATIENT CONVERSIONS [address] [place] [address] ProviderAnne-Marie MD [address] [place] [address] Social History Tobacco Use Types Packs/Day [...] - Inhaled Oxygen Concentration - - Weight 115 kg (253 lb 15.9 oz) 01/02/2016 8:43 A M EDT Height 162.6 cm (5' 4 ) 01/02/2016 8:43 AM EDT Body Mass Index 43.6 01/02/2016 8:43 AM EDT documented in this encounter Plan of Treatment Not on file documented as of this encounter Visit Diagnoses Not on filedocumented in this encounter
--- OUTSIDE RECORDS SUMMARY | 2024-02-27 14:04 | XMS_ITS | Encounter Summary ---
Author Organization [place] [address] Care Team Providers Care Weaving Professor Name Role Phone Unavailable Primary Care Provider Unavailabl e Reason for Visit * Reason Onset Date Comments Colonoscopy 08/24/2022 Encounter Details Date Type Department Care Team (Late st Contact Info) Description 08/24/2022 Telephone [facility] [address] [place] [address] Son Razo MD [address] [place], [place] [id number] Colonoscopy Social History Tobacco Use Types Packs/Day [...] encounter Miscellaneous Notes * Telephone Encounter - Arabella Spencer ABR-OE - 08/24/2022 3:24 PM EDT New ref for colon No mychart Lmtcb and letter mailed documented in this encounter Plan of Treatment Upcoming Encounters Date Type Department Care Team (Late st Contact Info) Description 05/07/2024 1:00 PM EST Office Visit [facility] [address] [place] [phone] Juana Bailey APRN [address] [place] [address] documented as of this encounter Goals Goal Patient Goal Type Associated Problems Recent Progress Patient-Stated? Author Blood Pressure < 140/90 Blood Pressure 112/70(2023 8:24 AM EDT) No Juana Bailey APRN Maintain a healthy diet, exercise regularly and maintain an ideal body weight General No Noelle Yeh RMA Stay Tobacco Free Lifestyle No Juaan Bailey APRN documented as of this encounter Visit Diagnoses Not on filedocumented in this encounter
--- OUTSIDE RECORDS SUMMARY | 2024-02-27 14:04 | XMS_ITS | Encounter Summary ---
Author Organization Healthcare Address [address] [place] [address] Care Team Providers Care Wheel Mill Operator Name Role Phone Unavailable Primary Care Provider Unavailabl e Encounter Details Date Type Department Care Team (Late st Contact Info) Description 04/02/2016 [facility] Vitals Encounter [facility] OUT[facility]IENT CONVERSIONS [address] [place] [address] ProviderAnne-Marie MD [address] [place] [id number] Social History Tobacco Use Types Packs/Day Years [...] Oxygen Concentration - - Weight 121 kg (265 lb 10.5 oz) 04/02/2016 12:01 PM EST Height 162.6 cm (5' 4 ) 04/02/2016 12:01 PM EST Body Mass Index 45.6 04/02/2016 12:01 PM EST documented in this encounter Plan of Treatment Not on file documented as of this encounter Visit Diagnoses Not on filedocumented in this encounter
--- OUTSIDE RECORDS SUMMARY | 2024-02-27 14:04 | XMS_ITS | Encounter Summary ---
Author Organization [facility] [address] Care Team Providers Care Senior Java Web Application Developer Name Role Phone Juana Bailey APRN Primary Care Provider [phone]- [phone] Reason for Visit * Reason Comments Medication Refill Encounter Details Date Type Department Care Team (Late st Contact Info) Description 10/17/2022 Refill [facility] [address] [place] [address] Juana Bailey APRN [address] [place] [address] Medication Refill Social History Tobacco Use Types [...] MOUTH 2 TIMES A DAY 60 Tablet 10/17/2022 3 flecainide (TAMBOCOR) 50 mg Oral Tablet TAKE ONE TABLET BY MOUTH 2 TIMES A DAY 60 Tablet 10/17/2022 3 diclofenac (VOLTAREN) 75 mg Oral Tablet, Delayed Release (E.C.) TAKE ONE TABLET BY MOUTH 2 TIMES A DAY 60 Tablet 10/17/2022 3 omeprazole (PRILOSEC) 20 mg Oral Capsule, Delayed Release(E.C.) TAKE 1 CAPSULE BY MOUTH ONCE A DAY 30 Capsule 10/17/2022 3 documented in this encounter Plan of Treatment Upcoming Encounters Date Type Department Care Team (Late st Contact Info) Description 05/07/2024 1:00 PM EST Office Visit [facility] [place] [facility] [address] [place] [phone] Juana Bailye APRN [address] [facility] [place] [address] documented as of this encounter Goals Goal [...] 1 CAPSULE BY MOUTH ONCE A DAY 08/29/2022 10/17/2022 flecainide (TAMBOCOR) 50 mg Oral Tablet TAKE ONE TABLET BY MOUTH 2 TIMES A DAY 08/29/2022 10/17/2022 metoprolol (LOPRESSOR) 50 mg Oral Tablet TAKE ONE TABLET BY MOUTH 2 TIMES A DAY 08/29/2022 10/17/2022 diclofenac (VOLTAREN) 75 mg Oral Tablet, Delayed Release (E.C.) TAKE ONE TABLET BY MOUTH 2 TIMES A DAY 08/29/2022 10/17/2022 documented as of this encounter Care Teams Senior Java Web Application Developer Relationship Specialty Start Date End Date Juana Bailey APRN [address] [facility] [place] [address] PCP - General Nurse Practitioner-Family 08/29/22 documented as of this encounter
--- OUTSIDE RECORDS SUMMARY | 2024-02-27 14:04 | XMS_ITS | Encounter Summary ---
Author Organization [place] [address] Care Team Providers Care Agency Development Manager Name Role Phone Juana Bailey APRN Primary Care Provider [phone]- [phone] Reason for Visit * Reason Comments Medication Refill Encounter Details Date Type Department Care Team (Late st Contact Info) Description 08/29/2022 Refill [facility] [address] [place] [address] Juana Bailey APRN [address] [place] [address] Medication Refill Social History Tobacco Use Types [...] MOUTH 2 TIMES A DAY 60 Tablet 08/29/2022 3 flecainide (TAMBOCOR) 50 mg Oral Tablet TAKE ONE TABLET BY MOUTH 2 TIMES A DAY 60 Tablet 08/29/2022 3 omeprazole (PRILOSEC) 20 mg Oral Capsule, Delayed Release(E.C.) TAKE 1 CAPSULE BY MOUTH ONCE A DAY 30 Capsule 08/29/2022 documented in this encounter Plan of Treatment Upcoming Encounters Date Type Department Care Team (Late st Contact Info) Description 05/07/2024 1:00 PM EST Office Visit [facility] [address] [place] [phone] Juana Bailey APRN [address] [facility] [place] [address] documented as of this encounter Goals Goal [...] mg by mouth every morning (before breakfast). 08/29/2022 documented as of this encounter Care Teams Agency Development Manager Relationship Specialty Start Date End Date Juana Bailey APRN [address] [place] [address] [place] [address] PCP - General Nurse Practitioner-Family 08/29/22 documented as of this encounter
--- OUTSIDE RECORDS SUMMARY | 2024-02-27 14:04 | XMS_ITS | Encounter Summary ---
Author Organization [place] [address] Care Team Providers Care Farm Tractor Operator Name Role Phone Juana Bailey APRN Primary Care Provider +1- [phone] Reason for Visit * Reason Onset Date Comments Other 08/29/2022 Encounter Details Date Type Department Care Team (Late Contact Info) Description 08/29/2022 Telephone [facility] [address] [facility] [address] [place] [address] Yvonne Albrecht RMA Other Social History Tobacco Use Types Packs/Day [...] encounter Miscellaneous Notes * Telephone Encounter - Yvonne Albrecht RMA - 08/29/2022 2:48 PM EDT Sent Colyte Split prep instructions to her my chart. documented in this encounter Plan of Treatment Upcoming Encounters Date Type Department Care Team (Late Contact Info) Description 05/07/2024 1:00 PM EST Office Visit [facility] [place] [address] [place] [address] Juana Bailey APRN [address] [facility] [place] [address] documented as of this encounter Goals Goal [...] on filedocumented in this encounter Care Teams Farm Tractor Operator Relationship Specialty Start Date End Date Juana Bailey APRN [address] [facility] [place] [address] PCP - General Nurse Practitioner-Family 08/29/22 documented as of this encounter
--- OUTSIDE RECORDS SUMMARY | 2024-02-27 14:04 | XMS_ITS | Encounter Summary ---
Author Organization [place] [address] Care Team Providers Care Elementary School Counselor Name Role Phone Juana Bailey APRN Primary Care Provider [phone]- [phone] Reason for Visit * Reason Onset Date Comments Other 10/15/2022 FYI- pt calling to cancel colonoscopy- unable to drink prep drink Encounter Details Date Type Department Care Team (Late st Contact Info) Description 10/15/2022 Telephone [facility] [address] [place] [phone] Juana Bailey APRN [address] [facility] [place] [address] Other (FYI- pt calling to cancel colonoscopy- unable to drink prep drink) Social History Tobacco Use Types Packs/Day Years [...] encounter Miscellaneous Notes * Telephone Encounter - Rosalba Burgess RMA - 10/15/2022 4:41 PM EDT Pt notified * Telephone Encounter - Juana Bailey APRN - 10/15/2022 3:52 PM EDT We don???t manage the prep for colonoscopy. The GI office should offer some alternatives. * Telephone Encounter - Heide Young - 10/15/2022 3:10 PM EDT Patient called to let us know she's is having a hard time drinking the prep drink for her colonoscopy on 10/17. She is going to call and cancel this with Gastro, they advised her to get with PCP to have this re-ordered when she's able to and to discuss other pre-op drink options to prepare her for this procedure. Please advise. documented in this encounter Plan of Treatment Upcoming Encounters Date Type Department Care Team (Late st Contact Info) Description 05/07/2024 1:00 PM EST Office Visit [facility] [address] [place] [phone] Juana Bailey APRN [address] [place] [address] documented as of this encounter Goals Goal [...] on filedocumented in this encounter Care Teams Elementary School Counselor Relationship Specialty Start Date End Date Juana Bailey APRN [address] [place] [address] PCP - General Nurse Practitioner-Family 08/29/22 documented as of this encounter
--- OUTSIDE RECORDS SUMMARY | 2024-02-27 14:04 | XMS_ITS | Encounter Summary ---
Author Organization [place] [address] Care Team Providers Care Insulation Sprayer Name Role Phone Juana Bailey APRN Primary Care Provider Reason for Visit * Reason Comments Medication Refill Encounter Details Date Type Department Care Team (Late Contact Info) Description 10/03/2022 Refill [facility] [address] [place] [phone] Juana Bailey APRN [address] [place] [address] Medication Refill Social History Tobacco Use Types [...] BY MOUTH ONCE A DAY 30 Tablet 10/03/2022 11/12/2022 documented in this encounter Plan of Treatment Upcoming Encounters Date Type Department Care Team (Late Contact Info) Description 05/07/2024 1:00 PM EST Office Visit [facility] [place] [address] [place] [phone] Juana Bailey APRN [address] [facility] [place] [address] documented as of this encounter Goals Goal [...] ONE TABLET BY MOUTH ONCE A DAY 08/29/2022 10/03/2022 documented as of this encounter Care Teams Insulation Sprayer Relationship Specialty Start Date End Date Juana Bailey APRN [address] [facility] [place] [address] PCP - General Nurse Practitioner-Family 08/29/22 documented as of this encounter
--- OUTSIDE RECORDS SUMMARY | 2024-02-27 14:04 | XMS_ITS | Encounter Summary ---
Author Organization [place] [address] Care Team Providers Care Redevelopment Manager Name Role Phone Juana Bailey APRN Primary Care Provider [phone]- [phone] Reason for Visit * Reason Comments Medication Refill Encounter Details Date Type Department Care Team (Late st Contact Info) Description 08/29/2022 Refill [facility] [address] [place] [phone] Juana Bailey APRN [address] [place] [address] Medication Refill Social History Tobacco Use Types [...] Refills Last Filled Start Date End Date triamterene-hydroc hlorothiazide (MAXZIDE) 75-50 mg Oral Tablet TAKE ONE TABLET BY MOUTH ONCE A DAY 30 Tablet 08/29/2022 3 ergocalciferol (DRISDOL) 1,250 mcg (50,000 unit) Oral Capsule TAKE 1 CAPSULE BY MOUTH ONE TIME PER WEEK 4 Capsule 08/29/2022 3 diclofenac (VOLTAREN) 75 mg Oral Tablet, Delayed Release (E.C.) TAKE ONE TABLET BY MOUTH 2 TIMES A DAY 60 Tablet 08/29/2022 3 documented in this encounter Plan of Treatment Upcoming Encounters Date Type Department Care Team (Late st Contact Info) Description 05/07/2024 1:00 PM EST Office Visit [facility] [place] [address] [place] [phone] Juana Bailey APRN [address] [facility] [place] [address] documented as of this encounter Goals Goal [...] times daily. Take 2 times a day 08/29/2022 triamterene-hydrochlorot hiazide (MAXZIDE) 75-50 mg Oral Tablet Take by mouth daily. 1 tablet once a day 08/29/2022 documented as of this encounter Care Teams Redevelopment Manager Relationship Specialty Start Date End Date Juana Bailey APRN [address] [place] [address] [place] [address] PCP - General Nurse Practitioner-Family 08/29/22 documented as of this encounter
--- NOTE | 2024-02-27 14:17 | EXP.PAIN.SOA ---
[facility] Disclaimer: The information contained in this section may have been updated after the patient was seen, as this information can be updated by other users. 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) History of back pain Sleep apnea Hyperlipidemia Hypertension Atrial fibrillation Family History , SKEIN INSPECTOR) Family history of cancer Family history of diabetes mellitus type II Family history of myocardial infarction Social History Smoking Status: Never smoker second hand exposure: No alcohol intake: never substance use type: denies use current occupational status: employed Travel in the last 8 weeks: None household members: spouse housing: house current occupational exposures/hazards: No caffeine: Yes PM Subjective & Objective Subjective Subjective:: Patient is a pleasant 53-year-old female who presents today for medication refill and 1 month follow-up. Today she rates her pain a 8 out of 10. Patient denies any new trauma or injury. She does state that she is still trying to recover from COVID and just has a lot of fatigue. Patient is currently managed with Percocet 10 mg 5 times a day and gabapentin 300 mg at bedtime. She denies any side effects from this medication. Her Evans has been reviewed and is appropriate. Review of Systems: General: No recent weight changes, no fever, no sleep disturbances Respiratory: No cough, no shortness of air, no recurring pulmonary infections Cardiovascular/peripheral vascular: No chest pain, no palpitations, no edema, no shortness of breath Gastrointestinal: No new onset incontinence, normal bowel movements reported Genitourinary: No new onset incontinence Musculoskeletal: Low back pain Psychiatric: [Normal mood/affect] Neurological: [Denies weakness in extremities], [denies balance issues] Pain at rest (0-10 scale): 8 Objective Objective:: Physical Exam: General: Alert and oriented x3, no acute distress, pleasant and cooperative Lungs: Respirations even and unlabored, symmetrical chest expansion Eyes: PERRL Musculoskeletal: Flexion and extension of lumbar [spine] somewhat guarded secondary to pain, [antalgic gait noted] Neurological: Speech clear, no gross sensory deficit Has patient had previous pain injection?: No Conservative treatment options previously tried: Home exercise plan Length of treatment: Longer than 12 weeks Meds Home Medications and Allergies Home Medications ?Medication ?Instructions ?Recorded ?Confirmed ?Type allopurinol 300 mg tablet 300 mg PO DAILY 01/28/24 01/28/24 History amoxicillin 875 mg tablet 875 mg PO Q12H #20 tabs 01/28/24 Rx benzonatate 100 mg capsule 100 mg PO TIDP PRN Cough #30 caps 01/28/24 Rx dapagliflozin propanediol 10 mg 10 mg PO DAILY 01/28/24 01/28/24 History tablet (Farxiga) ergocalciferol (vitamin D2) 1,250 1,250 mcg PO WEEKLY 01/28/24 01/28/24 History mcg (50,000 unit) capsule ezetimibe 10 mg tablet 10 mg PO DAILY 01/28/24 01/28/24 History flecainide 50 mg tablet 50 mg PO DAILY 01/28/24 01/28/24 History hydrochlorothiazide 25 mg tablet 25 mg PO DAILY 01/28/24 01/28/24 History loratadine 10 mg tablet 10 mg PO DAILY 01/28/24 01/28/24 History methylprednisolone 4 mg tablets in 4 mg PO DIRECTED 6 days #21 tabs 01/28/24 Rx a dose pack metoprolol tartrate 50 mg tablet 50 mg PO DAILY 01/28/24 01/28/24 History omeprazole 20 mg capsule,delayed 20 mg PO DAILY 01/28/24 01/28/24 History release trazodone 50 mg tablet 50 mg PO DAILY 01/28/24 01/28/24 History gabapentin 300 mg capsule 300 mg PO DAILY #30 caps 01/29/24 Rx oxycodone-acetaminophen 10 mg-325 1 tab PO 5XDAY #150 tabs 01/29/24 Rx mg tablet New Prescriptions to Start Prescriptions: Allergies Allergy/AdvReac Type Severity Reaction Status Date / Time No Known Allergies Allergy Verified 09/08/23 13:14 Assessment and Plan *Assessment and plan (1) Lumbar radiculopathy: Status: Acute Category: Medical Code(s): M54.16 - Radiculopathy, lumbar region (2) Degenerative disc disease, lumbar: Status: Acute Category: Medical Code(s): M51.36 - Other intervertebral disc degeneration, lumbar region Plan I will refill the patient's gabapentin and Percocet and provide a 1 month supply of this medication. Patient will return to clinic in 1 month for reevaluation of symptoms and plan of care. Risks and benefits of the medication have been explained in detail to the patient. The patient does understand the risk of dependence on the medication when given over a prolonged period. Patient has been advised of risks of oversedation with the prescribed medication. Narcan has been offered to the paitent in the event of oversedation. Patient has been advised that a family member should also be educated regarding administration of Narcan. The patient has been advised to consult with his/her primary care provider and pharmacist regarding drug-drug interaction of medications currently prescribed. Patient has been prescribed a controlled substance after being counseled on the medication, medication safety, and possible side effects. Opioid contract was reviewed and signed by the patient, and that they have agreed to all of the terms set forth by our compliance program. Patient has been instructed to contact the clinic with any concerns before the next appointment. Dr. Zelaya has reviewed this note and agrees with this plan of care. This note was dictated using voice recognition software and make contain errors or omissions.
[2024-02-27 14:38] VITALS: BP 103/60; PULSE 89; RESP 16; O2SAT 98; BMI 34.4
== END 2024-02-27 23:59 | disposition home or self-care (01) ==
PROVIDERS: PCP Nurse Practitioner; Visit Provider Nurse Practitioner Family
DX: M51.16 Intervertebral disc disorders with radiculopathy, lumbar region (principal)
CPT/HCPCS: 99212; G0463

== ENCOUNTER 2024-03-23 10:49 | Outpatient (POV) | payer OTHER, SELFPAY ==
--- OUTSIDE RECORDS SUMMARY | 2024-03-23 10:51 | XMS_ITS | Encounter Summary ---
Author Organization [facility] Address [address] [place] [address] Care Team Providers Care Drift Miner Name Role Phone Klarissa Napier APRN Primary Care Provider +1- [phone] Encounter Details Date Type Department Care Team (Late st Contact Info) Description 11/17/2014 Office Visit Converted [facility] [address] [place] [address] Carson Mcleod MD Social History Tobacco Use [...] Vitals Signs [Data Includes: Current Encounter] Recorded: [id number] 10:51AM Systolic: 104 Diastolic: 70 Height: 5 [...] Need Information - Required information Requested for: [id number] End of Encounter Meds Medication Name Instruction [...] records reviewed . Patient Care Team Care Drift Miner Role Specialty Office Number [facility] APRN Future Appointments Date/Time Provider Specialty Site 12/10/2014 11:30 AM Luh [facility] APRN Neurology [facility] The patient was counseled regarding instructions for [...] Need Information - Required information Requested for: [id number] End of Encounter Meds Medication Name Instruction [...] records reviewed . Patient Care Team Care Drift Miner Role Specialty Office Number [facility] APRN Future Appointments Date/Time Provider Specialty Site 12/10/2014 11:30 AM Luh [place] APRN Neurology [facility] The patient was counseled regarding instructions for [...] on filedocumented in this encounter Care Teams Drift Miner Relationship Specialty Start Date End Date Karthikeyan Klarissaverito Kessler APRN [address] [place] [address] PCP - General 11/25/14 documented as of this encounter
--- OUTSIDE RECORDS SUMMARY | 2024-03-23 10:51 | XMS_ITS | Encounter Summary ---
Author Organization [facility] Address [address] [place] [address] Care Team Providers Care Language Interpreter Name Role Phone Unavailable Primary Care Provider Unavailabl e Encounter Details Date Type Department Care Team (Late st Contact Info) Description 11/08/2014 8:43 AM EDT - 11/08/2014 11:59 PM EDT Hospital Encounter [facility] DEPARTMENT [address] [place] [id number] Luh Sanderson, TRADING ANALYST [address] [facility] [address] [place] [address] Social History Tobacco Use Types [...] Free T4 1.25 0.89 - 1.76 ng/dL [facility] Blood specimen (specimen) 11/08/2014 1:15 PM EDT [facility] LABORATORY - 11/08/2014 4:35 PM EDT Specimen Type: Blood Historical Provider LAB BLOOD ORDERABLES Bindu l Result Performing Organization Address [facility]/ZIP Co de Phone Number [facility] [address] [place] [address], * TSH (11/08/2014 1:15 PM EDT) TSH 1.436 0.350 - 5.350 UIU/mL [facility] Blood specimen (specimen) 11/08/2014 1:15 PM EDT [facility] LABORATORY - 11/08/2014 4:35 PM EDT Specimen Type: Blood Historical Provider LAB BLOOD ORDERABLES Bindu l Result Performing Organization Address City/[facility]/ZIP Co de Phone Number [facility] [address] [place] [address], * (ABNORMAL) Comprehensive metabolic panel (11/08/2014 1:15 PM EDT) Glucose 113(H) 70 - 100 mg/dL [facility] BUN 13 9 - 23 mg/dL [facility] Creatinine 0.6 0.6 - 1.3 mg/dL [facility] Sodium 141 132 - 146 mmol/L [facility] Potassium 3.5 3.5 - 5.5 mmol/L [facility] Chloride 96(L) 99 - 109 mmol/L [facility] CO2 30 20 - 31 mmol/L [facility] Calcium 9.7 8.7 - 10.4 mg/dL [facility] Alkaline Phosphatase 84 25 - 100 Units/L [facility] AST (SGOT) 69(H) 0 - 33 Units/L [facility] ALT (SGPT) 61(H) 7 - 40 Units/L [facility] Total Bilirubin 0.7 0.3 - 1.2 mg/dL [facility] Total Protein 7.5 5.7 - 8.2 g/dL [facility] Albumin 4.2 3.2 - 4.8 g/dL [facility] eGFR 112 ml/min/1.7 32 [facility] Comment: DF by IF @ 11/08/2014 16:35 ?? National Kidney Foundation Guidelines ?Stage ? Description ?GFR ?1 ?Normal or High ? 90+ ?2 ?Mild decrease ? 60-89 ?3 ?Moderate decrease ?30-59 ?4 ?Severe decrease ?15-29 ?5 ?Kidney failure ?<15 Anion Gap 15(H) 3 - 11 mmol/L [facility] Blood specimen (specimen) 11/08/2014 1:15 PM EDT [facility] LABORATORY - 11/08/2014 4:35 PM EDT Specimen Type: Blood [facility] Provider MD LAB BLOOD ORDERABLES Bindu l Result Performing Organization Address [facility] de Phone Number [facility] [address] [place] [address], * (ABNORMAL) Hemoglobin A1c (11/08/2014 1:15 PM EDT) [facility] Hemoglobin A1C 6.1(H) 4.00 - 6.00 % [facility] Comment: DF by IF @ 11/08/2014 15:55 [employer] [place] [employer] Diabetes [employer] recommends maintenance of Hemoglobin A1C at 7.0% or lower. Goals for Hemoglobin A1C reduction may need to be modified if hypoglycemia is a problem. Mean Bld Glu Estim. 123 mg/dL [facility] Blood specimen (specimen) 11/08/2014 1:15 PM EDT [facility] LABORATORY - 11/08/2014 3:55 PM EDT Specimen Type: Blood Luh Sanderson APRN LAB BLOOD ORDERABLES Fi nal Result Performing Organization Address [facility] [place] [address], * Vitamin B12 (11/08/2014 1:15 PM EDT) [facility] Vitamin B-12 706 211 - 911 pg/mL [facility] Blood specimen (specimen) 11/08/2014 1:15 PM EDT Narrative [facility] - 11/08/2014 4:35 PM EDT Specimen Type: Blood Luhroshan [facility] LAB BLOOD ORDERABLES Fi nal Result Performing Organization Address City/State/[facility] Co de Phone Number [facility] [address] [place] [address], * (ABNORMAL) CBC and Differential (11/08/2014 1:15 PM EDT) [facility] WBC 8.58 3.50 - 10.80 K/[facility] RBC 4.26 3.89 - 5.14 /[facility] Hemoglobin 13.1 11.5 - 15.5 g/dL [facility] Hematocrit 38.6 34.5 - 44.0 % [facility] MCV 90.6 80.0 - 99.0 fL [facility] MCH 30.8 27.0 - 31.0 pg [facility] MCHC 33.9 32.0 - 36.0 g/dL [facility] RDW-CV 13.5 11.3 - 14.5 % [facility] Platelets 279 150 - 450 [facility] Neutrophils Absolute 4.98 1.50 - 8.30 [facility] Lymphocytes Absolute 2.21 0.60 - 4.80 [facility] Monocytes Absolute 0.77 0.00 - 1.00 [facility] Eosinophils Absolute 0.56(H) 0.10 - 0.30 [facility] Basophils Absolute 0.03 0.00 - 0.20 [facility] Neutrophil Rel % 58.1 41.0 - 71.0 % [facility] Lymphocyte Rel % 25.8 24.0 - 44.0 % [facility] Monocyte Rel % 9.0 0.0 - 12.0 % [facility] Eosinophil Rel % 6.5(H) 0.0 - 3.0 % [facility] Basophil Rel % 0.3 0.0 - 1.0 % [facility] Immature Granulocyte Rel % 0.3 0.0 - 0.6 % [facility] Blood specimen (specimen) 11/08/2014 1:15 PM EDT [facility] - 11/08/2014 3:56 PM EDT Specimen Type: Blood [facility] BLOOD ORDERABLES Fi nal Result Performing Organization Address [facility] [place] [address], * (ABNORMAL) Folate (11/08/2014 1:15 PM EDT) [facility] Folate >24.0(H) 3.2 - 20.0 ng/mL [facility] Comment: DF by IF @ 11/08/2014 16:35 Folate Reference Ranges: Deficient: ?Less than 1.2 ng/mL Indeterminant: ?1.2-3.1 ng/mL Normal: ?3.2-20.0 ng/mL Blood specimen (specimen) 11/08/2014 1:15 PM EDT [facility] - 11/08/2014 4:35 PM EDT Specimen Type: Blood [facility] BLOOD ORDERABLES Fi nal Result Performing Organization Address [facility] [place] [address], * (ABNORMAL) C-reactive protein (11/08/2014 1:15 PM EDT) [facility] C-Reactive Protein 52.8(H) 0.000 - 10.000 mg/L [facility] Blood specimen (specimen) 11/08/2014 1:15 PM EDT [facility] LABOR[facility]ORY - 11/08/2014 4:23 PM EDT Specimen Type: Serum [address] [facility] TRADING ANA[facility] LAB BLOOD ORDERABLES Fi nal Result Performing Organization Address City/[facility] Co de Phone Number [facility] [address] [place] [address], * (ABNORMAL) Sedimentation rate (11/08/2014 1:15 PM EDT) [facility] Sed Rate 46(H) 0 - 20 mm/hr [facility] Blood specimen (specimen) 11/08/2014 1:15 PM EDT [facility] - 11/08/2014 5:09 PM EDT Specimen Type: Blood [facility] LAB BLOOD ORDERABLES Fi nal Result Performing Organization Address [facility] de Phone Number [facility] [address] [place] [address], * Methylmalonic acid, serum (11/08/2014 1:15 PM EDT) Pathologist [facility] Methylmalonic Acid 177 0 - 378 nmol/L [facility] Blood specimen (specimen) 11/08/2014 1:15 PM EDT [facility] - 11/11/2014 5:14 PM EDT Specimen Type: Blood PERFORMED AT: [address] [id number] AIR CARGO AGENT: Reg Lal MD ?? PHONE: [phone] [facility] TRADING ANALYST LAB BLOOD ORDERABLES Fi nal Result Performing Organization Address City/[facility] Co de Phone Number [facility] [address] [place] [address], [place] [phone] * Vitamin D 25 hydroxy (11/08/2014 1:15 PM EDT) Pathologist [facility] 25 Hydroxy, Vitamin D 21.1 ng/mL [facility] Comment: DF by IF @ 11/08/2014 16:35 Reference Ranges for Total Vitamin D 25(OH) Deficiency <20.0 ng/ml Insufficiency ? 20-30 ng/ml Sufficiency 30-100 ng/ml Toxicity >100 ng/ml Blood specimen (specimen) 11/08/2014 1:15 PM EDT [facility] - 11/08/2014 4:35 PM EDT Specimen Type: Blood [facility] BLOOD ORDERABLES Fi nal Result Performing Organization Address [facility] Co de Phone Number [facility] [address] [place] [address], * Iron (11/08/2014 1:15 PM EDT) [facility] Iron 86 50 - 175 mcg/dL [facility] Blood specimen (specimen) 11/08/2014 1:15 PM EDT [facility] - 11/08/2014 4:35 PM EDT Specimen Type: Blood [facility] LAB BLOOD ORDERABLES Fi nal Result [facility] [address] [place] [address], * Conv SVETLANA w/Reflex (11/08/2014 1:15 PM EDT) [facility] SVETLANA Negative NEGATIVE [facility] Blood specimen (specimen) 11/08/2014 1:15 PM EDT Narrative [facility] - 11/09/2014 3:18 PM EDT Specimen Type: Blood PERFORMED AT: [facility] [address] [place], [place] [id number] AIR CARGO AGENT: Hung Tolliver, PhD ?? PHONE: [phone] Luh Sanderson APRN LAB BLOOD ORDERABLES Fi nal Result [facility] [address] [place] [address], [place] [phone] documented in this encounter Visit Diagnoses Not on filedocumented in this encounter
--- OUTSIDE RECORDS SUMMARY | 2024-03-23 10:51 | XMS_ITS | Clinical Summary ---
[facility] Address [address] [place] [address] Care Team Providers Care Drafter Marine Name Role Phone Klarissa Napier HELICOPTER ENGINEER Primary Care Provider +1- [phone] Social History Tobacco Use Types Packs/Day Years [...] TEST 1968 FIT Testing (1 year) 1968 TDAP/TD VACCINES (1 - Tdap) 07/03/1987 MAMMOGRAM 2008 ZOSTER VACCINE (1 of 2) 2018 ANNUAL PHYSICAL 02/13/2022 HEPATITIS C SCREENING 02/13/2022 INFLUENZA VACCINE 10/14/2023 01/15/2019 COVID-19 Vaccine (1 - 2023-2 5 season) 2023 Pneumococcal Vaccine 0-64 Aged Out No longer eligible based on patient's age to complete this topic Care Teams Drafter Marine Relationship Specialty Start Date End Date Klarissa Napier, ZAHRA [address] [place] [address] PCP - General 11/25/14
--- OUTSIDE RECORDS SUMMARY | 2024-03-23 10:51 | XMS_ITS | Encounter Summary ---
Author Organization [facility] Address [address] [place] [address] Care Team Providers Care Firer Boiler Name Role Phone Klarissa Napier ZAHRA Primary Care Provider +1- [phone] Encounter Details Date Type Department Care Team (Late st Contact Info) Description 11/11/2014 Documentation Converted [facility] HISTORICAL CONV [address] [place] [address] ProviderAnne-Marie MD [address] [place] [address] Social History Tobacco Use Types Packs/Day [...] request copy of mri brain report from the medical center done recently 2014 within the last 3 months. thanks Gladis Ferreira - 11 Nov 2014 1:16 PM TASK EDITED Called [phone] to request records, waiting on records to be sent. documented in this encounter Plan of Treatment Not on file documented as of this encounter Visit Diagnoses Not on filedocumented in this encounter Care Teams Firer Boiler Relationship Specialty Start Date End Date Klarissa Napier, FIRER BOILER [address] [place] [id number] PCP - General 11/25/14 documented as of this encounter
--- OUTSIDE RECORDS SUMMARY | 2024-03-23 10:51 | XMS_ITS | Encounter Summary ---
Author Organization [facility] Address [address] [place] [address] Care Team Providers Care Post Secondary Professional Name Role Phone Klarissa Napier ZAHRA Primary Care Provider +1- [phone] Encounter Details Date Type Department Care Team (Late st Contact Info) Description 12/10/2014 Office Visit Converted [facility] [address] [facility] [address] [place] [address] Luh Sanderson APRN [address] [address] Social History Tobacco Use Types [...] 3; For: Atypical face pain, Atypical neuralgia; PPEE = N; Sent To: [facility]; Msg to Pharmacy: TAKE 1/2 TABLET [...] Paresthesias; PEPE = N; Verified Transmission to [facility]; Msg to Pharmacy: GAVE SAMPLES TODAY. [...] Status: Hold For - Scheduling Requested for: [id number] Ordered; For: Chronic migraine without aura without status migrainosus, not intractable; Ordered By: Luh Sanderson Performed: Due: [id number] End of Encounter Meds Medication Name Instruction [...] MG Oral Tablet Patient Care Team Care Post Secondary Professional Role Specialty Office Number [facility]UH SANDERSON APRN Future Appointments Date/Time Provider Specialty Site 06/10/2015 11:30 AM Luh Sanderson APRN Neurology [facility] [place] The patient was counseled regarding instructions for [...] Paresthesias; PEPE = N; Verified Transmission to [facility]; Msg to Pharmacy: GAVE SAMPLES TODAY. [...] Status: Hold For - Scheduling Requested for: [id number] Ordered; For: Chronic migraine without aura without status migrainosus, not intractable; Ordered By: Luh Sanderson Performed: Due: [id number] End of Encounter Meds Medication Name Instruction [...] MG Oral Tablet Patient Care Team Care Post Secondary Professional Role Specialty Office Number [facility]UH SANDERSON APRN Future Appointments Date/Time Provider Specialty Site 06/10/2015 11:30 AM Luh Sanderson APRN Neurology [facility] [place] The patient was counseled regarding instructions for [...] on filedocumented in this encounter Care Teams Post Secondary Professional Relationship Specialty Start Date End Date Klarissa Napier APRN [address] [place] [address] PCP - General 11/25/14 documented as of this encounter
--- OUTSIDE RECORDS SUMMARY | 2024-03-23 10:51 | XMS_ITS | Encounter Summary ---
Author Organization [facility] Address [address] [place] [address] Care Team Providers Care Line Appliance Assembler Name Role Phone Klarissa Napier APRN Primary Care Provider +1- [phone] Encounter Details Date Type Department Care Team (Late st Contact Info) Description 12/14/[address] [facility] HISTORICAL CONV [address] [place] [address] ProviderAnne-Marie MD [address] [place] [address] Social History Tobacco Use Types Packs/Day [...] on filedocumented in this encounter Care Teams Line Appliance Assembler Relationship Specialty Start Date End Date Klarissa Napier, ZAHRA [address] [place] [address] PCP - General 11/25/14 documented as of this encounter
--- OUTSIDE RECORDS SUMMARY | 2024-03-23 10:51 | XMS_ITS | Encounter Summary ---
[facility] Address [address] [place] [address] Care Team Providers Care Pc Network Technician Name Role Phone Klarissa Napier APRN Primary Care Provider +1- [phone] Encounter Details Date Type Department Care Team (Late st Contact Info) Description 11/15/2014 Documentation Converted [facility] HISTORICAL CONV [address] [place] [address] ProviderAnne-Marie MD [address] [place] [address] Social History Tobacco Use Types Packs/Day [...] Methylmalonic Acid , Blood ( MMA ) [id number] 01:15PM Luh Sanderson PERFORMED AT: [facility] [id number] TOWER EQUIPMENT REPAIRER: Reg Lal MD PHONE: [phone] Test Name Result Flag Reference Methylmalonic Acid, Serum 177 nmol/L 0-378 documented in this encounter Plan of Treatment Not on file documented as of this encounter Visit Diagnoses Not on filedocumented in this encounter Care Teams Pc Network Technician Relationship Specialty Start Date End Date Klarissa Napier APRN [address] [place], [place] [id number] PCP - General 11/25/14 documented as of this encounter
--- OUTSIDE RECORDS SUMMARY | 2024-03-23 10:51 | XMS_ITS | Encounter Summary ---
Author Organization [facility] Address [address] [place] [address] Care Team Providers Care Shake Feeder Name Role Phone Klarissa Napier ZAHRA Primary Care Provider +1- [phone] Encounter Details Date Type Department Care Team (Late st Contact Info) Description 11/08/2014 Office Visit Converted [facility] [address] [facility] [address] [place] [address] Luh Sanderson APRN [address] [address] Social History Tobacco Use Types [...] dental teeth extractions by a Dentist in [place] and after this dental work she started [...] referred to us by Dr. Jovel with [facility] surgery for atypical facial pain. He did order an MRI Brain and she had this done recently at [facility] and she was told it looked ok. [...] Vitals Signs [Data Includes: Current Encounter] Recorded: [id number] 12:02PM Heart Rate: 88 Respiration: 20 Systolic: [...] DAILY 2. SVETLANA w Reflex; Status:Active; Requested for:[id number]; 3. CBC With Auto Diff; Status:Active; Requested for:49Iho7855; 4. CMP; Status:Active; Requested for:15Iwy7384; 5. CRP; Status:Active; Requested for:66Vvs6125; 6. Folate; Status:Active; Requested for:62Ldi5426; 7. Sed Rate ( ESR ); Status:Active; Requested for:55Ykp6611; 8. T4 ( Thyroxine ) Free; Status:Active; Requested for:45Qnr1990; 9. TSH; Status:Active; Requested for:73Nnx9499; 10. Vitamin B12; Status:Active; Requested for:62Djp0439; 11. Vitamin D 25 [place] ( Hydroxy ); Status:Active; Requested for:82Xcc1860; 12. Hemoglobin A1C; Status:Active; Requested for:23Nwo5686; 13. Iron , Serum; Status:Active; Requested for:66Tgx1566; 14. Methylmalonic Acid , Blood ( MMA ); Status:Active; Requested for:69Ptp7812; 15. Follow-up visit in 1 month Evaluation [...] Will request records of MRI brain from [facility] for review. Her symptoms are consistent [...] records reviewed . Patient Care Team Care Shake Feeder Role Specialty Office Number LUH SANDERSON ZAHRA Future Appointments Date/Time Provider Specialty Site 12/24/2014 09:15 AM Carson Mcleod M.D. Neurology [facility] Neurology [facility] The patient was counseled regarding diagnostic [...] dental teeth extractions by a Dentist in [place] and after this dental work she started [...] and she had this done recently at [facility] and she was told it looked ok. [...] intractable ?? SVETLANA w Reflex; Status:Active; Requested for:45Gsy1267; ?? CBC With Auto Diff; Status:Active; Requested for:[id number]; ?? CMP; Status:Active; Requested for:65Dmj1252; ?? CRP; Status:Active; Requested for:74Sdy1669; ?? Folate; Status:Active; Requested for:93Mfj5995; ?? Sed Rate ( ESR ); Status:Active; Requested for:36Bsy8369; ?? T4 ( Thyroxine ) Free; Status:Active; Requested for:60Vms0252; ?? TSH; Status:Active; Requested for:60Wxf4263; ?? Vitamin B12; Status:Active; Requested for:08Nov2014; ?? [...] Will request records of MRI brain from [facility] for review. Her symptoms are consistent [...] records reviewed . Patient Care Team Care Shake Feeder Role Specialty Office Number LUH SANDERSON APRN Future Appointments Date/Time Provider Specialty Site 12/24/2014 09:15 AM Carson Mcleod M.D. Neurology [facility] Neurology [facility] The patient was counseled regarding diagnostic [...] on filedocumented in this encounter Care Teams Shake Feeder Relationship Specialty Start Date End Date Klarissa Napier APRN [address] [place] [address] PCP - General 11/25/14 documented as of this encounter
--- OUTSIDE RECORDS SUMMARY | 2024-03-23 10:51 | XMS_ITS | Encounter Summary ---
Author Organization [facility] Address [address] [place] [address] Care Team Providers Care Assessment Nurse Practitioner Name Role Phone Klarissa Napier ZAHRA Primary Care Provider +1- [phone] Encounter Details Date Type Department Care Team (Late st Contact Info) Description 11/10/2014 Documentation Converted [facility] HISTORICAL CONV [address] [place] [address] ProviderAnne-Marie MD [address] [place] [address] Social History Tobacco Use Types Packs/Day [...] Verified Results Sed Rate ( ESR ) [id number] 01:15PM Luh Sanderson Test Name Result Flag Reference Sed Rate 46 mm/hr H 0-20 CRP 08Nov2014 01:15 Luh Sanderson Test Name Result Flag Reference CRP 52.8 mg/L H 0.000-10.000 SVETLANA w Reflex 08Nov2014 01:15 Luh Sanderson PERFORMED AT: [facility] [address] [id number] SSIS ARCHITECT: Hung Tolliver, PhD PHONE: [phone] Test Name Result Flag Reference SVETLANA Direct [...] 1.50-8.30 Abs Lymph 2.21 K/mcL 0.60-4.80 Abs [place] 0.77 K/mcL 0.00-1.00 Abs Eos 0.56 K/mcL [...] D 25(OH) Deficiency<20.0 ng/ml Insufficiency 20-30 ng/ml Thoptnkxolg29-823 ng/ml Toxicity>100 ng/ml Vitamin B12 08Nov2014 01:15PM [...] Hemoglobin A1C 6.1 % H 4.00-6.00 The [place] [employer] recommends maintenance of Hemoglobin A1C [...] decrease 15-29 5 Kidney failure <15 TSH [id number] 01:15PM Luh Sanderson Test Name Result Flag Reference TSH 1.436 UIU/mL 0.350-5.350 Specimens containing fluorescein can produce falsely depressed values with this assay. Patients undergoing fluorescein dye angiography should wait 72 hours post-treatment before testing. T4 ( Thyroxine ) Free [id number] 01:15PM Luh Sanderson Test Name Result Flag Reference Free T4 1.25 ng/dL 0.89-1.76 documented in this encounter Plan of Treatment Not on file documented as of this encounter Visit Diagnoses Not on filedocumented in this encounter Care Teams Assessment Nurse Practitioner Relationship Specialty Start Date End Date Klarissa Napier APRN [address] [place] [address] PCP - General 11/25/14 documented as of this encounter
--- OUTSIDE RECORDS SUMMARY | 2024-03-23 10:51 | XMS_ITS | Encounter Summary ---
Author Organization [facility] Address [address] [place] [address] Care Team Providers Care Pst Specialist Name Role Phone Klarissa Napier APRN Primary Care Provider +1- [phone] Encounter Details Date Type Department Care Team (Late st Contact Info) Description 12/16/[address] [facility] HISTORICAL CONV [address] [place] [address] ProviderAnne-Marie MD [address] [place] [address] Social History Tobacco Use Types Packs/Day [...] on filedocumented in this encounter Care Teams Pst Specialist Relationship Specialty Start Date End Date Klarissa Napier, [employer] ACQU[employer]ITION[employer] BANKER [address] [place] [address] PCP - General 11/25/14 documented as of this encounter
--- OUTSIDE RECORDS SUMMARY | 2024-03-23 10:52 | XMS_ITS | Encounter Summary ---
Author Organization [facility] [place] [address] Care Team Providers Care Timber Sizer Operator Name Role Phone Juana Bailey APRN Primary Care Provider +1- [phone] Encounter Details Date Type Department Care Team (Late st Contact Info) Description 02/12/2024 Orders Only [facility]P N[facility] [address] [place] [address] Juana Bailey APRN [address] [place] [address] Social History Tobacco Use Types Packs/Day [...] Date Recorded PHQ-2 Total Score 0 10/24/2023 [facility] [place] of Occupat ional Health - Occupational Stress [...] Alden Polanco CCMA documented in this encounter Plan of Treatment Upcoming Encounters Date Type Department Care Team (Late st Contact Info) Description 05/07/2024 1:00 PM EST Office Visit [facility] [place] [facility] [address] [place] [phone] Juana Bailey APRN [address] [place] [address] documented as of this encounter Goals Goal [...] on filedocumented in this encounter Care Teams Timber Sizer Operator Relationship Specialty Start Date End Date Juana Bailey APRN [address] [place] [address] PCP - General Nurse Practitioner-Family 08/29/22 documented as of this encounter
--- OUTSIDE RECORDS SUMMARY | 2024-03-23 10:52 | XMS_ITS | Encounter Summary ---
Author Organization [place] [address] Care Team Providers Care Crop Duster Helper Name Role Phone Juana Bailey APRN Primary Care Provider +1- [phone] Reason for Visit * Reason Comments Medication Refill Encounter Details Date Type Department Care Team (Late st Contact Info) Description 10/31/2023 Refill [facility] Nati [address] [place] [address] Juana Bailey APRN [address] [place] [address] Medication Refill Social History Tobacco Use Types [...] Date Recorded PHQ-2 Total Score 0 10/24/2023 [facility] of Occupat ional Health - Occupational Stress [...] PM EST Office Visit [facility] [address] [place] [address] Juana Bailey APRN [address] [facility] [address] documented as of this encounter Goals Goal [...] Component 6.1( 9:55 AM EDT) No Juana aBiley APRN documented as of this encounter Visit Diagnoses Not on filedocumented in this encounter Discontinued Medications Medication Sig Discontinue Reason Start Date End Da te flecainide (TAMBOCOR) 50 mg Oral Tablet TAKE ONE TABLET BY MOUTH 2 TIMES A DAY 09/26/2023 10/31/2023 documented as of this encounter Care Teams Crop Duster Helper Relationship Specialty Start Date End Date Juana Bailey APRN [address] [place] [address] PCP - General Nurse Practitioner-Family 08/29/22 documented as of this encounter
--- OUTSIDE RECORDS SUMMARY | 2024-03-23 10:52 | XMS_ITS | Encounter Summary ---
Author Organization [place] [address] Care Team Providers Care Clinical Biostatistician Name Role Phone Juana Bailey APRN Primary Care Provider [phone]- [phone] Reason for Visit * Reason Comments Medication Refill Encounter Details Date Type Department Care Team (Late st Contact Info) Description 01/08/2024 Refill [facility] [address] [place] [phone] Juana Bailey APRN [address] [place], [place] [id number] Medication Refill Social History Tobacco Use Types [...] Date Recorded PHQ-2 Total Score 0 10/24/2023 [facility] [place] of Occupat ional Health - Occupational Stress [...] place to sleep or slept in a long term (including now)? No 03/05/2023 Sexually Active Control [...] End Date ezetimibe (ZETIA) 10 mg Oral TabletIndications:Ty pe 2 diabetes mellitus with hyperlipidemia (HCC),Statin myopathy TAKE ONE TABLET BY MOUTH ONCE A DAY 90 Tablet 01/09/2024 documented in this encounter Plan of Treatment Upcoming Encounters Date Type Department Care Team (Late st Contact Info) Description 05/07/2024 1:00 PM EST Office Visit [facility] [address] [place] [phone] Juana Bailey APRN [address] [place] [address] documented as of this encounter Goals Goal [...] with hyperlipidemia (HCC) Statin myopathy Toxic myopathy documented in this encounter Discontinued Medications Medication Sig Discontinue Reason Start Date End Da te ezetimibe (ZETIA) 10 mg Oral TabletIndications:Type 2 diabetes mellitus with hyperlipidemia (HCC),Statin myopathy Take 1 Tablet by mouth daily. 01/03/2023 01/09/2024 documented as of this encounter Care Teams Clinical Biostatistician Relationship Specialty Start Date End Date Juana Bailey APRN [address] [place] [address] PCP - General Nurse Practitioner-Family 08/29/22 documented as of this encounter
--- OUTSIDE RECORDS SUMMARY | 2024-03-23 10:52 | XMS_ITS | Encounter Summary ---
Author Organization [place] [address] Care Team Providers Care Product Responsibility Liaison Name Role Phone Juana Bailey APRN Primary Care Provider [phone]- [phone] Reason for Visit * Reason Comments Medication Refill Encounter Details Date Type Department Care Team (Late st Contact Info) Description 01/27/2024 Refill [facility] [address] [place] [phone] Juana Bailey APRN [address] [place] [address] Medication Refill Social History Tobacco Use [...] Date Recorded PHQ-2 Total Score 0 10/24/2023 [facility] of Occupat ional Health - Occupational Stress [...] ONE TIME PER WEEK 4 Capsule 01/29/2024 4 documented in this encounter Miscellaneous Notes * Telephone Encounter - Caty Chanel CPhT - 01/29/2024 8:15 AM EDT ergocalciferol (DRISDOL) 1,250 mcg (50,000 unit) Oral Capsule There is no CRS protocol for this medication. FARXIGA 10 mg Oral Tablet Future Visit: 02/05/24 Last Assessed Visit: 12/24/23 Follow-Up Date: 06/22/24 All protocols passed. Refills approved and sent to requesting pharmacy. Routed to [facility] if applicable. documented in this encounter Plan of Treatment Upcoming Encounters Date Type Department Care Team (Late st Contact Info) Description 05/07/2024 1:00 PM EST Office Visit [facility] [place] [facility] [address] [place] [phone] Juana Bailey APRN [address] [place] [address] documented as of this encounter Goals Goal [...] Coronary atherosclerosis of unspecified type of vessel, hopi or graft documented in this encounter Discontinued [...] documented as of this encounter Care Teams Product Responsibility Liaison Relationship Specialty Start Date End Date Juana Bailey APRN [facility] [place] [address] PCP - General Nurse Practitioner-Family 08/29/22 documented as of this encounter
--- OUTSIDE RECORDS SUMMARY | 2024-03-23 10:52 | XMS_ITS | Encounter Summary ---
Author Organization [place] [address] Care Team Providers Care Warehouse Foreman Name Role Phone Juana Bailey APRN Primary Care Provider [phone]- [phone] Reason for Visit * Reason Comments Medication Refill Encounter Details Date Type Department Care Team (Late st Contact Info) Description 02/03/2024 Refill [facility] [address] [place] [address] Juana Bailey APRN [address] [place] [address] Medication Refill Social History Tobacco Use [...] Date Recorded PHQ-2 Total Score 0 10/24/2023 [facility] [place] of Occupat ional Health - Occupational Stress [...] Author No 10/24/2023 9:27 AM EDT Alden Croewll CCMA documented as of this encounter Mental [...] and sent to requesting pharmacy. Routed to [facility] if applicable. documented in this encounter Plan of Treatment Upcoming Encounters Date Type Department Care Team (Late st Contact Info) Description 05/07/2024 1:00 PM EST Office Visit [facility]EL [address] [place] [phone] Juana Bailey APRN [address] [place] [address] documented as of this encounter Goals Goal [...] documented as of this encounter Care Teams Warehouse Foreman Relationship Specialty Start Date End Date Juana Bailey APRN [address] [place] [address] PCP - General Nurse Practitioner-Family 08/29/22 documented as of this encounter
--- OUTSIDE RECORDS SUMMARY | 2024-03-23 10:52 | XMS_ITS | Encounter Summary ---
Author Organization [place] [address] Care Team Providers Care Personalized Living Manager Nurse Name Role Phone Juana Bailey APRN Primary Care Provider +1- [phone] Reason for Visit * Reason Comments Medication Refill Encounter Details Date Type Department Care Team (Late st Contact Info) Description 12/03/2023 Telephone [facility]P Nati [address] [place] [phone] Juana Bailey APRN [address] [place] [address] Medication Refill Social History Tobacco Use Types Packs/Day Years Used Date Smoking Tobacco: Never Smokeless Tobacco: Current Snuff Alcohol Use Standard Drinks/Week Comments Not Currently 0 (1 standard drink = 0.6 oz pur e alcohol) Overall Financial Resource Strain ([facility]) Answe r Date Recorded How hard is it for you to pa y for the very basics like food, housing, medical care, and heating? Not very hard 03/05/2023 PHQ-2 Answer Date Recorded PHQ-2 Total Score 0 10/24/2023 [facility] of Occupat ional Health - Occupational Stress [...] w/ prescribing provider: 12/23 Pharmacy & Location: [facility] - [place] [address] [address] - [phone] Additional Notes: meds pended already documented in this encounter Plan of Treatment Upcoming Encounters Date Type Department Care Team (Late st Contact Info) Description 05/07/2024 1:00 PM EST Office Visit [facility] [address] [place] [phone] Juana Bailey APRN [address] [facility] [place] [address] documented as of this encounter Goals Goal [...] documented as of this encounter Care Teams Personalized Living Manager Nurse Relationship Specialty Start Date End Date Juana Bailey APRN [address] [facility] [place] [address] PCP - General Nurse Practitioner-Family 08/29/22 documented as of this encounter
--- OUTSIDE RECORDS SUMMARY | 2024-03-23 10:52 | XMS_ITS | Encounter Summary ---
Author Organization [place] [address] Care Team Providers Care Finance Consultant Name Role Phone Juaan Bailey APRN Primary Care Provider +1- [phone] Reason for Visit * Reason Onset Date Comments Other 10/25/2023 home care aliciaive red Encounter Details Date Type Department Care Team (Late st Contact Info) Description 10/25/2023 Telephone [facility]P Nati [address] [place] [address] Juana Bailey APRN [address] [place] [address] Other (home care delivered) Social History [...] Date Recorded PHQ-2 Total Score 0 10/24/2023 [facility] [place] of Occupat ional Health - Occupational Stress [...] Assessment Author No 10/24/2023 9:27 AM Alden Polnaco CCMA * Is the person blind or [...] PM EST Office Visit [facility]LY PATEL [address] [place] [phone] Juana Bailey APRN [address] [place] [address] documented as of this encounter Goals Goal [...] on filedocumented in this encounter Care Teams Finance Consultant Relationship Specialty Start Date End Date Juana Bailey APRN [address] [place] [address] PCP - General Nurse Practitioner-Family 08/29/22 documented as of this encounter
--- OUTSIDE RECORDS SUMMARY | 2024-03-23 10:52 | XMS_ITS | Referral Summary ---
Author Organization [facility] Address [address] [place] [address] [place] [address] Phone Care Team Providers Care Lens Inspector Name Role Phone Lynn, Juana CROP PEST CONTROL SPECIALIST Primary Care Provider Encounters Date Type Department Care Team Description 03/06/[address] [place] [phone] Lynn, Juana, CROP PEST CONTROL SPECIALIST Other 03/02/[address] [place] [phone] [place], Juana, CROP PEST CONTROL SPECIALIST Medication Refill 02/12/2024 Orders Only SEP [address] [place] [phone] [place], Juana, CROP PEST CONTROL SPECIALIST 02/11/[address] [place] [phone] Lynn, Juana, CROP PEST CONTROL SPECIALIST Symptoms (Only Use If Pt Pushes Back On Scheduling A Visit) (so tired and drained after having covid. ); Patient Returning Call (Requesting a call back) 02/05/2024 8:30 AM EDT Office Visit [address] [place] [phone] Lynn, Juana, CROP PEST CONTROL SPECIALIST Type 2 diabetes mellitus with hyperlipidemia (HCC) (Primary Dx); Acute right-sided thoracic back pain 02/03/[address] [place] [phone] Juana Bailey, CROP PEST CONTROL SPECIALIST Medication Refill 01/27/[address] [place] [phone] Lynn, Juana, CROP PEST CONTROL SPECIALIST Medication Refill 01/20/[address] [place] [phone] LynnArnoldo lemonika, CROP PEST CONTROL SPECIALIST Medication Refill 01/17/[address] [place] [phone] LynnJuana lemon, CROP PEST CONTROL SPECIALIST Refill ( Disp Refills Start End /semaglutide [...] issue); Patient Returning Call (PA) 01/08/[address] [place] [phone] Juana Bailey, CROP PEST CONTROL SPECIALIST Medication Refill 12/26/[address] [place] [phone] Juana Bailey CROP PEST CONTROL SPECIALIST Other (Was fax received ) 12/24/2023 9:00 AM EDT Office Visit [address] [place] [phone] Juana Bailey, CROP PEST CONTROL SPECIALIST Type 2 diabetes mellitus with hyperlipidemia (HCC) (Primary Dx); Essential hypertension; Morbid obesity (HCC); Dyslipidemia; Encounter for screening 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 cancer; Cervical radiculopathy 12/23/[address] [place] [address] Lynn, Juana, ZAHRA Medication Refill from Last 3 Months Allergies No known active allergies Medications aspirin-dipyridam ole (AGGRENOX) 25-200 mg Oral Cap, Multiphasic Release 12 hr Take 1 Capsule by mouth 2 times daily. Once daily Active fish oil OTC (OMEGA-3 DHA-EPA 300 MG) 300-1,000 mg Oral Capsule, Delayed Release(E.C.) Take 2 g by mouth daily. Active b jxiyhhc-W-eohsb acid (NEPHROCAP) 1 mg Oral Capsule Take [...] A DAY 90 Tablet 3 023 Active flecainide (TAMBOCOR) 50 mg Oral Tablet [...] MOUTH ONCE A DAY 90 Tablet 024 Active semaglutide (OZEMPIC) 2 mg/dose (8 mg/3 mL) SubQ Pen InjectorIndicatio ns:Type 2 diabetes mellitus with hyperlipidemia (HCC) Subcutaneous (Inject under the skin) 2 mg once a week. 3 mL 11 Active Additional Information Patient not taking.Reason: Too expensive, Reported on 02/05/2024 loratadine (CLARITIN) 10 mg Oral Tablet TAKE ONE TABLET BY MOUTH ONCE A DAY 30 Tablet Active dapagliflozin propanediol (FARXIGA) 10 mg Oral [...] Units by mouth daily. 30 Capsule Active ergocalciferol (DRISDOL) 1,250 mcg (50,000 unit) Oral Capsule TAKE 1 CAPSULE BY MOUTH ONE TIME PER WEEK 4 Capsule 5 Active omeprazole (PRILOSEC) 20 mg Oral Capsule, Delayed Release(E.C.) TAKE 1 CAPSULE BY MOUTH ONCE A DAY 100 Capsule Active minoxidiL (LONITEN) 2.5 mg Oral TabletIndications :Hair loss Take 1 Tablet by mouth daily. 30 Tablet 2 Active omeprazole (PRILOSEC) 20 mg Oral Capsule, Delayed Release(E.C.) TAKE 1 CAPSULE BY MOUTH ONCE A DAY 90 Capsule 024 2023 Discontinued ergocalciferol (DRISDOL) 1,250 mcg (50,000 unit) Oral Capsule TAKE 1 CAPSULE BY MOUTH ONE TIME PER WEEK 4 Capsule 024 2023 Discontinued Active Problems Problem Noted [...] Date Recorded PHQ-2 Total Score 0 10/24/2023 [facility] of Occupat ional Health - [...] No 10/24/2023 9:27 AM Alden Polanco CCMA Mental Status * Because of a physical, mental or emotional condition, does this person have serious difficulty concentrating, remembering or making decisions? Answer Entry Date Author No 10/24/2023 9:27 AM Alden Polanco CCMA Plan of Treatment Upcoming Encounters Date Type Department Care Team (Late st Contact Info) Description 05/07/2024 1:00 PM EST Office Visit [facility] [place] [facility] [address] [place] [phone] Juana Bailey APRN [address] [place] [address] Goals Goal Patient Goal Type Associated Problems Recent Progress Patient-Stated? Author Blood Pressure < 140/90 Blood Pressure 112/70(2023 8:24 AM EDT) No [place], Juana, CROP PEST CONTROL SPECIALIST Maintain a healthy diet, exercise regularly and maintain an ideal body weight General No Noelle Yeh RMA BMI (Calculated) < 30 General 38.7(10/24/19 9:24 AM EDT) No [place], Juana, CROP PEST CONTROL SPECIALIST Stay Tobacco Free Lifestyle No Lynn, Juana, CROP PEST CONTROL SPECIALIST HEMOGLOBIN A1C < 7.0 Result Component 6.1( 9:55 AM EDT) No Lynn, Juana, CROP PEST CONTROL SPECIALIST Procedures Procedure Name Priority Date/Time Associated Diagnosis [...] Type 2 diabetes mellitus with hyperlipidemia (HCC) [facility] ORDER Routine 05/22/2023 9:58 AM EST [...] DIABETIC RETINOPATHY EXAM (12/24/2023 9:35 AM EDT) [facility] Signature Retinopathy Exam Severity NORMAL [facility] Right Diabetic Retinopathy None SE LAB Right Macular Edema None [facility] Right Other Retina None SE LAB Right Eye Image Quality Gradable Image SE LAB Left Diabetic Retinopathy None SE LAB Left Macular Edema None SE LAB Left Other Retina None SE LAB Left Eye Image Quality Gradable Image [facility] 12/24/2023 9:35 AM EDT 12/24/2023 9:35 AM EDT Impressions [facility] - 12/24/2023 9:40 AM EDT Retinal Study Result for JANE FARIAS, a 53 y/o, F (: 1970, ) presented to [facility] on 12-24-2023 for a retinal [...] signed by Fitz Gusman MD, , Taxonomy: [id number] on 12-24-2023 13:40 UTC. NOTE: ??Any pathology noted on this diabetic retinal evaluation should be confirmed by an appropriate ophthalmic examination. us Juana Bailey APRN OPHTHALMOLOGY SERVICES MUE KVNG Final Result [facility] [address] [place] [address] * MICROALBUMIN/CREATININE RATIO URINE (10/24/2023 11:36 AM EDT) Pathologist [facility] Urine Microalb <12.0 mg/L 10/24/2023 4:23 PM EDT PREFERRED [facility] Urine Creatinine 96.8 mg/dL 10/24/19 24 4:23 PM EDT PREFERRED [facility] Ur Microalb/Creat 024 4:23 PM EDT [facility] Comment: Because the albumin level is below the level of detection in this urine specimen, the laboratory is unable to calculate a reliable albumin/creatinine ratio. Microalbuminuria is unlikely if the urine albumin concentration is less than 20- 30 mg/L in a random specimen. Urine URINE SPECIMEN COLLECTION / Unknown 10/24/2023 11:36 AM EDT 10/24/2023 11:36 AM EDT us Juana Bailey CROP PEST CONTROL SPECIALIST URINE ORDERABLES Final Resu lt PREFERRED [facility] [address] [facility] , [place] [address] * (ABNORMAL) LIPID PANEL REFLEX (10/24/2023 9:55 AM EDT) Pathologist [facility] Cholesterol 155 <200 mg/dL 10/24/2023 4:15 PM EDT [facility] Comment: < 200 ?Desirable 200 - 239 ? Borderline High >= 240 ?High Triglyceride 231(H) <150 mg/dL 10/24/2023 4:15 PM EDT [facility] Comment: < 150 ? Normal 150 - 199 ?Borderline High 200 - 499 ?High ??>= 500 ? Very High HDL 42 >=40 mg/dL 10/24/2023 4:15 PM EDT [facility] Comment: ??> 60 ?Optimal 40 - 60 ?Acceptable ?? < 40 ?Low LDL Calculated 75 <100 mg/dL 10/24/2023 4:15 PM EDT PREFERRED [facility] Non-HDL-C Calculated 113 <=129 mg/dL 10/24/2023 4:15 PM EDT PREFERRED LAB [facility], [facility] Comment: <130 ?Desirable 130-159 Above Desirable 160-189 Borderline High 190-219 High >= 220 ??Very High Fasting Specimen? Yes None 024 4:15 PM EDT [facility] Blood VENOUS BLOOD / Unknown Venipuncture / Unknown 10/24/2023 9:55 AM EDT 10/24/2023 9:55 AM EDT [facility] CROP PEST CONTROL SPECIALIST CHEMISTRY ORDERABLES Final Result Performing Organization Address [facility] Co de Phone Number [facility] [place], [address] , [address] [place] [phone] [facility] [address] [place], [place] [id number] * (ABNORMAL) HEMOGLOBIN A1C (10/24/2023 9:55 AM EDT) [facility] Hgb A1C 6.1(H) 4.2 - 5.6 % 10/24/2023 4:28 PM EDT [facility] Est. Avg Glucose 128 mg/dL 10/24/2023 4:28 PM EDT [facility] LAB [facility], [facility] Blood VENOUS BLOOD / Unknown Venipuncture / Unknown 10/24/2023 9:55 AM EDT 10/24/2023 9:55 AM EDT Narrative [facility] - 10/24/2023 4:28 PM EDT REFERENCE RANGE: Normal: 4.0-5.6% Pre-diabetes: 5.7-6.4% Provisional diagnosis of diabetes: >6.4% Hgb F>10% and anything which shortens red cell survival, such as hemolytic anemia, or unstable hemoglobin variants such as HbSS, HbSC, or HbCC, will lower the HbA1c value associated with a given level of glycemic control. ? Juana [place] CROP PEST CONTROL SPECIALIST CHEMISTRY ORDERABLES Final Result Performing Organization Address [facility] Co de Phone Number [facility], [address] , [place] [address] * DIABETES EYE EXAM (02/20/2022 8:43 AM EST) Left Diabetic Retinopathy Not Present Present/Not Present SEP OFFICE Right Diabetic Retinopathy Not Present Present/Not Present SEP OFFICE us Historical Provider Generic HEALTH MAINTENANCE E dited Result - Final SEP OFFICE from Last 3 Months or Most Recently Relevant to Health Maintenance Insurance BILL [facility] [address] [place] [address] [id number] [facility] [id number] Care Teams Lens Inspector Relationship Specialty Start Date End Date Juana Bailey APRN [address] [place] [address] PCP - General Nurse Practitioner-Family 08/29/22
--- OUTSIDE RECORDS SUMMARY | 2024-03-23 10:52 | XMS_ITS | Encounter Summary ---
Author Organization [place] [address] Care Team Providers Care Camelid Fiber Sorter Name Role Phone Juana Bailey APRN Primary Care Provider +1- [phone] Reason for Visit * Reason Comments Medication Refill Encounter Details Date Type Department Care Team (Late st Contact Info) Description 12/23/2023 Refill SEP Nati [address] [place] [address] Juana Bailey APRN [address] [place] [address] Medication Refill Social History Tobacco Use [...] Date Recorded PHQ-2 Total Score 0 10/24/2023 [facility] [place] of Occupat ional Health - Occupational Stress [...] PM EST Office Visit ASHELY PATEL [address] [place] [phone] Juana Bailey APRN [address] [place] [address] documented as of this encounter Goals Goal [...] documented as of this encounter Care Teams Camelid Fiber Sorter Relationship Specialty Start Date End Date Juana Bailey APRN [address] [place] [address] PCP - General Nurse Practitioner-Family 08/29/22 documented as of this encounter
--- OUTSIDE RECORDS SUMMARY | 2024-03-23 10:52 | XMS_ITS | Encounter Summary ---
Author Organization [place] [address] Care Team Providers Care Ensemble Member Name Role Phone Juana Bailey APRN Primary Care Provider [phone] Reason for Visit * Reason Onset Date Comments Symptoms (Only Use If Pt Pus hes Back On Scheduling A Visit) 02/11/2024 so tired and drained after h aving covid. Patient Returning Call 02/11/2024 Requestin g a call back Encounter Details Date Type Department Care Team (Late st Contact Info) Description 02/11/2024 Telephone SEP N[facility] [address] [place] [address] Juana Bailey APRN [address] [facility] [place] [address] Symptoms (Only Use If Pt Pushes [...] Date Recorded PHQ-2 Total Score 0 10/24/2023 [facility] [place] of Occupat ional Health - Occupational Stress [...] 10/24/2023 9:27 AM EDAlden Al CCMA documented in this encounter [...] No Pain Desired Outcome: Advice Pharmacy & Location:[facility] Method of Communication: Phone Call Additional Information: please advise pt. documented in this encounter Plan of Treatment Upcoming Encounters Date Type Department Care Team (Late st Contact Info) Description 05/07/2024 1:00 PM EST Office Visit [facility] [address] [place] [phone] Juana Bailey APRN [address] [place] [address] documented as of this encounter Goals Goal [...] on filedocumented in this encounter Care Teams Ensemble Member Relationship Specialty Start Date End Date Juana Bailey APRN [address] [place] [address] PCP - General Nurse Practitioner-Family 08/29/22 documented as of this encounter
--- OUTSIDE RECORDS SUMMARY | 2024-03-23 10:52 | XMS_ITS | Encounter Summary ---
Author Organization [place] [address] Care Team Providers Care Chemical Tank Worker Name Role Phone Juana Bailey APRN Primary Care Provider [phone]- [phone] Reason for Visit * Reason Onset Date Comments Other 12/26/2023 Was fax received Encounter Details Date Type Department Care Team (Late Contact Info) Description 12/26/2023 Telephone SEP [facility] [address] [place] [address] Juana Bailey APRN [address] [place] [address] Other (Was fax received ) Social [...] Date Recorded PHQ-2 Total Score 0 10/24/2023 [facility] [place] of Occupat ional Health - Occupational Stress [...] They said they faxed the form to [phone] on 12/02 and again on 12/25. They [...] know if the fax they sent to [phone] on 12/02 for incontinence supplies was received. When is this needed by: today Where does this information need to go: Juana Bailey Additional information: N/A documented in this encounter Plan of Treatment Upcoming Encounters Date Type Department Care Team (Late st Contact Info) Description 05/07/2024 1:00 PM EST Office Visit [facility]HELY PATEL [address] [place] [phone] Juana Bailey APRN [address] [address] documented as of this encounter Goals Goal [...] on filedocumented in this encounter Care Teams Chemical Tank Worker Relationship Specialty Start Date End Date Juana Bailey APRN [address] [place] [address] PCP - General Nurse Practitioner-Family 08/29/22 documented as of this encounter
--- OUTSIDE RECORDS SUMMARY | 2024-03-23 10:52 | XMS_ITS | Encounter Summary ---
Author Organization [place] [address] Care Team Providers Care Slate Splitter Name Role Phone Juana Bailey APRN Primary Care Provider [phone] Reason for Referral * Medication Prior Authorization - Closed Specialty Diagnoses / Procedures Referred By Lynda gomez Referred To Contact Diagnoses Type 2 diabetes mellitus with hyperlipidemia (HCC) Juana Bailey APRN [address] [address] Phone: tel: fax: Referral ID Status Reason Start Date Expiration Date Visits Re quested Visits Authorized [id number] Closed 1 1 Reason for Visit * [...] st Contact Info) Description 01/17/2024 Telephone [facility]HELY PAT[facility] [address] [place] [phone] Juana Bailey APRN [address] [place] [address] Refill ( Disp Refills Start End /semaglutide [...] Date Recorded PHQ-2 Total Score 0 10/24/2023 [facility] [place] of Occupat ional Health - Occupational Stress [...] once a week. 3 mL 11 4 documented in this encounter Miscellaneous Notes [...] Here is a number for the insurance [phone]. She stated that they did not give [...] Phillips MA - 01/20/2024 10:32 AM EDT [facility]. This medication was sent to the pharmacy [...] w/ prescribing provider: none [facility] Additional Information: N/A documented in this encounter Plan of Treatment Upcoming Encounters Date Type Department Care Team (Late st Contact Info) Description 05/07/2024 1:00 PM EST Office Visit [facility] [address] [place] [address] Juana Bailey APRN [address] [facility] [place] [address] documented as of this encounter Goals Goal [...] documented as of this encounter Care Teams Slate Splitter Relationship Specialty Start Date End Date Juana Bailey APRN [address] [place] [address] [place] [address] PCP - General Nurse Practitioner-Family 08/29/22 documented as of this encounter
--- OUTSIDE RECORDS SUMMARY | 2024-03-23 10:52 | XMS_ITS | Encounter Summary ---
Author Organization [place] [address] Care Team Providers Care Optical Designer Name Role Phone Juana Bailey APRN Primary Care Provider [phone]- [phone] Reason for Visit * Reason Onset Date Comments Other 03/06/2024 Encounter Details Date Type Department Care Team (Late st Contact Info) Description 03/06/2024 Telephone SEP [facility] [address] [place] [address] Juana Bailey APRN [address] [place] [address] Other Social History Tobacco Use Types [...] Date Recorded PHQ-2 Total Score 0 10/24/2023 [facility] [place] of Occupat ional Health - Occupational Stress [...] No 03/05/2023 Housing Stability Vital Sign Answer Aajy e Recorded In the last 12 months, [...] Refills Last Filled Start Date End Date minoxidiL (LONITEN) 2.5 mg Oral TabletIndications:H air loss Take 1 Tablet by mouth daily. 30 Tablet 2 03/06/2024 documented in this encounter Miscellaneous Notes * Telephone Encounter - Juana Bailey APRN - 03/06/2024 3:19 PM EST Hair loss; requesting minoxidil. documented in this encounter Plan of Treatment Upcoming Encounters Date Type Department Care Team (Late st Contact Info) Description 05/07/2024 1:00 PM EST Office Visit ASHELY PATEL [address] [place] [phone] Juana Bailey APRN [address] [address] documented as of this encounter Goals Goal [...] as of this encounter Visit Diagnoses Diagnosis Hair loss- Primary Alopecia, unspecified documented in this encounter Care Teams Optical Designer Relationship Specialty Start Date End Date Juana Bailey APRN [address] [place] [address] PCP - General Nurse Practitioner-Family 08/29/22 documented as of this encounter
--- OUTSIDE RECORDS SUMMARY | 2024-03-23 10:52 | XMS_ITS | Clinical Summary ---
Author Organization [facility] Address [address] [place] [address] Phone Care Team Providers Care Film Developer Name Role Phone LynnJuana talbot ZAHRA Primary Care Provider Allergies No known active allergies Medications aspirin-dipyridam ole (AGGRENOX) 25-200 mg Oral Cap, Multiphasic Release 12 hr Take 1 Capsule by mouth 2 times daily. Once daily Active fish oil OTC (OMEGA-3 DHA-EPA 300 MG) 300-1,000 mg Oral Capsule, Delayed Release(E.C.) Take 2 g by mouth daily. Active b xeyzzed-X-tngxa acid (NEPHROCAP) 1 mg Oral Capsule Take [...] ONCE A DAY 90 Tablet 3 Active flecainide (TAMBOCOR) 50 mg Oral Tablet [...] BY MOUTH ONCE A DAY 90 Capsule 2023 Discontinued ergocalciferol (DRISDOL) 1,250 mcg (50,000 [...] Type Department Care Team Description 03/06/2024 Telephone SEP [address] [place] [phone] Emlyn, Juana, VP SOFTWARE ENGINEERING Other 03/02/2024 Refill SEP [address] [place] [phone] Lynn, Juana, VP SOFTWARE ENGINEERING Medication Refill 02/12/2024 Orders Only [address] [place] [phone] Lynn, Juana, VP SOFTWARE ENGINEERING 02/11/[address] [place] [phone] Lynn, Juana, VP SOFTWARE ENGINEERING Symptoms (Only Use If Pt Pushes Back On Scheduling A Visit) (so tired and drained after having covid. ); Patient Returning Call (Requesting a call back) 02/05/2024 8:30 AM EDT Office Visit [address] [place] [phone] Lynn, Juana, VP SOFTWARE ENGINEERING Type 2 diabetes mellitus with hyperlipidemia (HCC) (Primary Dx); Acute right-sided thoracic back pain 02/03/[address] [place] [phone] Lynn, Juana, VP SOFTWARE ENGINEERING Medication Refill 01/27/[address] [place] [phone] Emlyn, Juana, VP SOFTWARE ENGINEERING Medication Refill 01/20/2024 Refill SEP [address] [place] [phone] Juana Bailey APRN Medication Refill 01/17/[address] [place] [phone] Juana Bailey APRN Refill ( Disp Refills Start End /semaglutide [...] issue); Patient Returning Call (PA) 01/08/[address] [place] [phone] Juana Bailey APRN Medication Refill 12/26/[address] [place] [phone] Juana Bailey APRN Other (Was fax received ) 12/24/2023 9:00 AM EDT Office Visit [address] [place] [phone] Juana Bailey APRN Type 2 diabetes mellitus with hyperlipidemia (HCC) (Primary Dx); Essential hypertension; Morbid obesity (HCC); Dyslipidemia; Encounter for screening 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 cancer; Cervical radiculopathy 12/23/[address] [place] [phone] Juana Bailey APRN Medication Refill from Last 3 Months Immunizations Name Administration [...] Son Relation Name Status Comments Brother 1 Brondomenico Alive Brother 2 Piter Alive Brother 3 [...] Date Recorded PHQ-2 Total Score 0 10/24/2023 [facility] of Occupat ional Health - Occupational [...] place to sleep or slept in a fpc (including now)? No 03/05/2023 Sexually Active Control [...] EST Office Visit [facility] [place] [facility] [address] [phone] Juana Bailey APRN [address] [...] Type 2 diabetes mellitus with hyperlipidemia (HCC) [facility] [employer] PLANT LABORER CYTOLOGY ORDER Routine 05/22/2023 9:58 AM EST [...] RETINOPATHY EXAM (12/24/2023 9:35 AM EDT) Pathologist [facility] Retinopathy Exam Severity NORMAL [facility] Right Diabetic Retinopathy None [facility] Right Macular Edema None [facility] Right Other Retina None [facility] Right Eye Image Quality Gradable Image [facility] Left Diabetic Retinopathy None [facility] Left Macular Edema None [facility] Left Other Retina None [facility] Left Eye Image Quality Gradable Image [facility] 12/24/2023 9:35 AM EDT 12/24/2023 9:35 AM EDT Impressions [facility] - 12/24/2023 9:40 AM EDT Retinal Study Result for JANE FARIAS, a 53 y/o, F (: 1970, ) presented to [facility] on 12-24-2023 for a [...] signed by Fitz Gusman MD, , Taxonomy: [id number] on 12-24-2023 13:40 UT. NOTE: ??Any pathology noted on this diabetic retinal evaluation should be confirmed by an appropriate ophthalmic examination. Juana Bailey APRN OPHTHALMOLOGY SERVICES ORDE RABLES Final Result Performing Organization Address [facility] de Phone Number [facility] [address] [place] [address] * MICROALBUMIN/CREATININE RATIO URINE (10/24/2023 11:36 AM EDT) Urine Microalb <12.0 mg/L 10/24/2023 4:23 PM EDT [facility] Urine Creatinine 96.8 mg/dL 10/24/19 24 4:23 PM EDT [facility] Ur Microalb/Creat 024 4:23 PM EDT [facility] Comment: Because the albumin level is below the level of detection in this urine specimen, the laboratory is unable to calculate a reliable albumin/creatinine ratio. Microalbuminuria is unlikely if the urine albumin concentration is less than 20- 30 mg/L in a random specimen. Urine URINE SPECIMEN COLLECTION / Unknown 10/24/2023 11:36 AM EDT 10/24/2023 11:36 AM EDT Juana Bailey APRN URINE ORDERABLES Final Resu lt [facility] [address] [facility] , [place] [address] * (ABNORMAL) LIPID PANEL REFLEX (10/24/2023 9:55 AM EDT) Cholesterol 155 <200 mg/dL 10/24/2023 4:15 PM EDT [email or web address] Comment: < 200 ?Desirable 200 - 239 ? Borderline High >= 240 ?High Triglyceride 231(H) <150 mg/dL 10/24/2023 4:15 PM EDT [facility] Comment: < 150 ? Normal 150 - 199 ?Borderline High 200 - 499 ?High ??>= 500 ? Very High HDL 42 >=40 mg/dL 10/24/2023 4:15 PM EDT [facility] Comment: ??> 60 ?Optimal 40 - 60 ?Acceptable ?? < 40 ?Low LDL Calculated 75 <100 mg/dL 10/24/2023 4:15 PM EDT [facility] Non-HDL-C Calculated 113 <=129 mg/dL 10/24/2023 4:15 PM EDT [facility] [employer] [employer] Comment: <130 ?Desirable 130-159 Above Desirable 160-189 Borderline High 190-219 High >= 220 ??Very High Fasting Specimen? Yes None 024 4:15 PM EDT [facility] Blood VENOUS BLOOD / Unknown Venipuncture / Unknown 10/24/2023 9:55 AM EDT 10/24/2023 9:55 AM EDT us Juana Bailey VP SOFTWARE ENGINEERING CHEMISTRY ORDERABLES Final Result [facility] [address] [facility] , [place] [address] [facility] [address] [place] [address] * (ABNORMAL) HEMOGLOBIN A1C (10/24/2023 9:55 AM EDT) Hgb A1C 6.1(H) 4.2 - 5.6 % 10/24/2023 4:28 PM EDT [facility] Est. Avg Glucose 128 mg/dL 10/24/2023 4:28 PM EDT [facility] Blood VENOUS BLOOD / Unknown Venipuncture / Unknown 10/24/2023 9:55 AM EDT 10/24/2023 9:55 AM EDT Narrative [facility] - 10/24/2023 4:28 PM EDT REFERENCE RANGE: Normal: 4.0-5.6% Pre-diabetes: 5.7-6.4% Provisional diagnosis of diabetes: >6.4% Hgb F>10% and anything which shortens red cell survival, such as hemolytic anemia, or unstable hemoglobin variants such as HbSS, HbSC, or HbCC, will lower the HbA1c value associated with a given level of glycemic control. ? Juana Bailey VP SOFTWARE ENGINEERING CHEMISTRY ORDERABLES Final Result Performing Organization Address City/[facility]/ZIP Co de Phone Number [facility] [address] [place] [address] , [place] [address] * DIABETES EYE EXAM (02/20/2022 8:43 AM EST) Left Diabetic Retinopathy Not Present Present/Not Present SEP OFFICE Right Diabetic Retinopathy Not Present Present/Not Present SEP OFFICE Historical Provider Generic HEALTH MAINTENANCE E dited Result - Final SEP OFFICE from Last 3 Months or Most Recently Relevant to Health Maintenance Insurance [facility] [place], [place] [address] [facility] [place] [address] [employer] [facility] [place] [address] Care Teams Film Developer Relationship Specialty Start Date End Date Juana Bailey [place] [address] PCP - General Nurse Practitioner-Family 08/29/22
--- OUTSIDE RECORDS SUMMARY | 2024-03-23 10:52 | XMS_ITS | Encounter Summary ---
Author Organization [place] [address] Care Team Providers Care Consumer Loan Underwriter Name Role Phone Juana Bailey APRN Primary Care Provider [phone]- [phone] Reason for Visit * Reason Comments Medication Refill Encounter Details Date Type Department Care Team (Late st Contact Info) Description 11/06/2023 Refill SEP [facility] [address] [place] [address] Juana Bailey APRN [address] [place] [address] Medication Refill Social History Tobacco Use [...] Date Recorded PHQ-2 Total Score 0 10/24/2023 [facility] [place] of Occupat ional Health - Occupational Stress [...] PM EST Office Visit ASHELY PATEL [address] [place] [phone] Juana Bailey APRN [address] [place] [address] documented as of this encounter Goals Goal [...] documented as of this encounter Care Teams Consumer Loan Underwriter Relationship Specialty Start Date End Date Juana Bailey APRN [address] [place] [address] PCP - General Nurse Practitioner-Family 08/29/22 documented as of this encounter
--- OUTSIDE RECORDS SUMMARY | 2024-03-23 10:52 | XMS_ITS | Encounter Summary ---
Author Organization [place] [address] Care Team Providers Care Drywall Installer Name Role Phone Juana Bailey APRN Primary Care Provider [phone] Reason for Referral * Mammography (Routine) - Pending Review Specialty Diagnoses / Procedures Referred By Lynda gomez Referred To Contact Radiology Diagnoses Encounter for screening 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 cancer Procedures MM MAMMO DIGITAL MARCO SCREEN BILAT Juana Bailey APRN [address] [place] [address] Phone: tel: fax: Referral ID Status Reason Start Date Expiration Date V isits Requested Visits Authorized [id number] Pending Review 12/24/2023 12/24/2025 1 1 Reason for Visit * Reason Comments Follow-up Encounter Details Date Type Department Care Team (Latest Contact Info) Description 12/24/2023 9:00 AM EDT Office Visit ASHELY PATEL [address] [place] [phone] Juana Bailey APRN [address] [place] [address] Type 2 diabetes mellitus with hyperlipidemia (HCC) [...] Total Score 0 10/24/2023 [facility] of Occupat ional Health - Occupational [...] Content: Thought content normal. * [facility] 12/24/2023 9:00 AM EDT Jane Pimentel CCMA, administered the Iris diabetic retinopathy screening without difficulty. Initial evaluation involved looking at patient eyes to confirm that eyes do not appear red, angry, and/or the cornea appears hazy. Patient was able to adequately dilate pupils naturally for adequate images to be obtained. No dilation drops were necessary. * Tabitha Sharma RN - 12/24/2023 9:00 AM EDT Laboratory results received, patient notified by: [employer] Message. documented in this encounter Miscellaneous Notes * Patient Instructions - Juana Bailey APRN - 12/24/2023 9:00 AM EDT Can schedule for the mammogram van here at office, or at the hospital or call [facility] and scheduleto complete Mammogram there documented in this encounter Plan of Treatment Upcoming Encounters Date Type Department Care Team (Late st Contact Info) Description 05/07/2024 1:00 PM EST Office Visit ASHELY PATEL [address] [place] [phone] Juana Bailey APRN [address] [place] [address] Scheduled Orders Name Type Priority Associated Diagnoses [...] ideal body weight General No Noelle Yeh Caryl, JUAN BMI (Calculated) < 30 General 38.7(10/24/19 9:24 AM EDT) No Lynn, Juana, DISPATCH SPECIALIST Stay Tobacco Free Lifestyle No Lynn, Juana, DISPATCH SPECIALIST HEMOGLOBIN A1C < 7.0 Result Component 6.1( 9:55 AM EDT) No [place], Juana, DISPATCH SPECIALIST documented as of this encounter Procedures [...] None SE LAB Left Other Retina None [facility] Left Eye Image Quality Gradable Image [facility] 12/24/2023 9:35 AM EDT 12/24/2023 9:35 AM EDT [facility] - 12/24/2023 9:40 AM EDT Retinal Study Result for JANE FARIAS, a 53 y/o, F (: 1970, ) presented to [facility] on 12-24-2023 for a [...] signed by Fitz Gusman MD, , Taxonomy: [id number] on 12-24-2023 13:40 UTC. NOTE: ??Any pathology noted on this diabetic retinal evaluation should be confirmed by an appropriate ophthalmic examination. Juana Bailey APRN OPHTHALMOLOGY SERVICES MUE KVNG Final Result [facility] [address] [place] [address] documented in this encounter Visit [...] Deltoid documented in this encounter Care Teams Drywall Installer Relationship Specialty Start Date End Date Juana Bailey [place] [address] [place] [address] PCP - General Nurse Practitioner-Family 08/29/22 documented as of this encounter
--- OUTSIDE RECORDS SUMMARY | 2024-03-23 10:52 | XMS_ITS | Encounter Summary ---
Author Organization [facility] [place] [address] Care Team Providers Care Label Operator Name Role Phone Juana Bailey APRN Primary Care Provider [phone]- [phone] Reason for Visit * Reason Comments Medication Refill Encounter Details Date Type Department Care Team (Late st Contact Info) Description 01/20/2024 Refill SEP Nati [address] [place] [address] Juana Bailey APRN [address] [...] Date Recorded PHQ-2 Total Score 0 10/24/2023 [facility] [place] of Occupat ional Health - Occupational Stress [...] place to sleep or slept in a penitentiary (including now)? No 03/05/2023 Sexually Active Control [...] PM EST Office Visit ASHELY PATEL [address] [place] [phone] Juana Bailey APRN [address] [place] [address] documented as of this encounter Goals Goal [...] documented as of this encounter Care Teams Label Operator Relationship Specialty Start Date End Date Juana Bailey APRN [address] [place] [address] PCP - General Nurse Practitioner-Family 08/29/22 documented as of this encounter
--- OUTSIDE RECORDS SUMMARY | 2024-03-23 10:52 | XMS_ITS | Encounter Summary ---
Author Organization [place] [address] Care Team Providers Care Senior Energy Market Coordinator Name Role Phone Juana Bailey APRN Primary Care Provider [phone]- [phone] Reason for Visit * Reason Onset Date Comments Central Order Completion Outreach 11/27/2023 mammogram Encounter Details Date Type Department Care Team (Late st Contact Info) Description 11/27/2023 Patient Outreach SEP [facility] [address] [place] [address] Juana Bailey APRN [address] [place] [address] Central Order Completion Outreach (mammogram ) Social [...] Date Recorded PHQ-2 Total Score 0 10/24/2023 [facility] [place] of Occupat ional Health - Occupational Stress [...] Answer, Left Voicemail to Return Call at [phone] * Klarissa Melchor RN - 11/27/2023 1:06 PM EDT SEP Order Completion Outcome Tracking Contact Attempt:: First Mammogram Outcome:: No Answer, MyChart Message documented in this encounter Plan of Treatment Upcoming Encounters Date Type Department Care Team (Late st Contact Info) Description 05/07/2024 1:00 PM EST Office Visit ASHELY PATEL [address] [place] [phone] Juana Bailey APRN [address] [place] [address] documented as of this encounter Goals Goal [...] filedocumented in this encounter Care Teams Senior Energy Market Coordinator Relationship Specialty Start Date End Date Juana Bailey APRN [address] [place] [address] PCP - General Nurse Practitioner-Family 08/29/22 documented as of this encounter
--- OUTSIDE RECORDS SUMMARY | 2024-03-23 10:52 | XMS_ITS | Encounter Summary ---
Author Organization [place] [place] [address] Care Team Providers Care Operations Support Representative Name Role Phone Juana Bailey APRN Primary Care Provider +1- [phone] Reason for Visit * Reason Comments Follow-up Trouble with PA for ozempic Back Pain Below right shoulder blade only when moving certain ways Encounter Details Date Type Department Care Team (Latest Contact Info) Description 02/05/2024 8:30 AM EDT Office Visit [facility] [address] [place] [address] Juana Bailey APRN [address] [place] [address] Type 2 diabetes mellitus with hyperlipidemia (HCC) [...] Date Recorded PHQ-2 Total Score 0 10/24/2023 [facility] of Occupat ional [facility] - Occupational Stress Questionnaire Answer Date Recorded [...] Bailey APRN - 02/05/2024 8:30 AM EDT [facility] [address] [facility] [address] [place] [address] Luh Sanderson APRN [address] [place] [address] documented in this encounter Plan of Treatment Upcoming Encounters Date Type Department Care Team (Late st Contact Info) Description 05/07/2024 1:00 PM EST Office Visit [facility] [place] [facility] [address] [phone] Juana Bailey APRN [address] [facility] [place] [address] documented as of this encounter Goals Goal [...] pain documented in this encounter Care Teams Operations Support Representative Relationship Specialty Start Date End Date Juana Bailey APRN [address] [place] [address] PCP - General Nurse Practitioner-Family 08/29/22 documented as of this encounter
--- OUTSIDE RECORDS SUMMARY | 2024-03-23 10:52 | XMS_ITS | Encounter Summary ---
Author Organization [place] [address] Care Team Providers Care Watershed Coordinator Name Role Phone Juana Bailey APRN Primary Care Provider +1- [phone] Reason for Visit * Reason Comments Medication Refill Encounter Details Date Type Department Care Team (Late st Contact Info) Description 11/18/2023 Refill [facility] [address] [place] [phone] Juana Bailey APRN [address] [place] [address] Medication Refill Social History Tobacco Use [...] Date Recorded PHQ-2 Total Score 0 10/24/2023 [facility] [place] of Occupat ional Health - Occupational Stress [...] MOUTH ONCE A DAY 30 Tablet 11/20/2023 4 omeprazole (PRILOSEC) 20 mg Oral Capsule, Delayed Release(E.C.) TAKE 1 CAPSULE BY MOUTH ONCE A DAY 90 Capsule 11/20/2023 4 documented in this encounter Miscellaneous Notes * Telephone Encounter - Marni Santiago CPhT - 11/20/2023 7:23 AM EDT Omeprazole Medication Refill Protocol passed. Sylvain Action: Approved 90-day supply with sufficient refills [...] PM EST Office Visit ASHELY PATEL [address] [phone] Juana Bailey APRN [address] [place] [address] documented as of this encounter Goals Goal [...] documented as of this encounter Care Teams Watershed Coordinator Relationship Specialty Start Date End Date Juana Bailey APRN [address] [place] [address] PCP - General Nurse Practitioner-Family 08/29/22 documented as of this encounter
--- OUTSIDE RECORDS SUMMARY | 2024-03-23 10:52 | XMS_ITS | Encounter Summary ---
Author Organization [place] [address] Care Team Providers Care Manager Psychiatry Name Role Phone Juana Bailey APRN Primary Care Provider +1- [phone] Reason for Visit * Reason Comments Medication Refill Encounter Details Date Type Department Care Team (Late st Contact Info) Description 03/02/2024 Refill [facility] [address] [place] [address] Juana Bailey APRN [address] [place] [address] Medication Refill Social History Tobacco Use [...] Date Recorded PHQ-2 Total Score 0 10/24/2023 [facility] [place] of Occupat ional Health - Occupational Stress [...] BY MOUTH ONCE A DAY 100 Capsule 03/04/2024 ergocalciferol (DRISDOL) 1,250 mcg (50,000 unit) Oral Capsule TAKE 1 CAPSULE BY MOUTH ONE TIME PER WEEK 4 Capsule 5 03/04/2024 documented in this encounter Miscellaneous Notes * Telephone Encounter - Caty Chanel CPhT - 03/04/2024 9:59 AM EST ergocalciferol (DRISDOL) 1,250 mcg (50,000 unit) Oral Capsule There is no CRS protocol for this medication. omeprazole (PRILOSEC) 20 mg Oral Capsule, Delayed Release(E.C.) Future Visit: 05/07/24 Last Assessed Visit: n/a Follow-Up Date: n/a All protocols passed. Refills approved and sent to requesting pharmacy. Routed to [facility] if applicable. documented in this encounter Plan of Treatment Upcoming Encounters Date Type Department Care Team (Late st Contact Info) Description 05/07/2024 1:00 PM EST Office Visit [facility] [place] [address] [place] [phone] Juana Bialey APRN [address] [place] [address] documented as of this encounter Goals Goal [...] 1 CAPSULE BY MOUTH ONCE A DAY 11/20/2023 03/04/2024 ergocalciferol (DRISDOL) 1,250 mcg (50,000 unit) Oral Capsule TAKE 1 CAPSULE BY MOUTH ONE TIME PER WEEK 01/29/2024 03/04/2024 documented as of this encounter Care Teams Manager Psychiatry Relationship Specialty Start Date End Date Juana Bailey APRN [address] [place] [address] PCP - General Nurse Practitioner-Family 08/29/22 documented as of this encounter
--- OUTSIDE RECORDS SUMMARY | 2024-03-23 10:53 | XMS_ITS | Encounter Summary ---
Author Organization [place] [address] Care Team Providers Care Railcar Mechanic Name Role Phone Juana Bailey APRN Primary Care Provider +1 [phone] Reason for Visit * Reason Onset Date Comments Other 07/15/2023 Asking ZAHRA Bailey to give her a call back at [phone] when available. Please advise. Encounter Details Date Type Department Care Team (Late st Contact Info) Description 07/15/2023 Telephone [facility]HELY PATEL [address] [place] [address] Juana Bailey APRN [address] [place] [address] Other (Asking ZAHRA Bailey to give her a call back at [phone] when available. Please advise.) Social History Tobacco [...] Date Recorded PHQ-2 Total Score 0 11/07/2022 [facility] of Occupat ional Health - Occupational Stress [...] to give her a call back at [phone] when available. Please advise. When is this [...] PM EST Office Visit ASHELY PATEL [address] [place] [address] Juana Bailey APRN [address] [facility] [place] [address] documented as of this encounter Goals Goal [...] on filedocumented in this encounter Care Teams Railcar Mechanic Relationship Specialty Start Date End Date Juana Bailey APRN [address] [facility] [place] [address] PCP - General Nurse Practitioner-Family 08/29/22 documented as of this encounter
--- OUTSIDE RECORDS SUMMARY | 2024-03-23 10:53 | XMS_ITS | Encounter Summary ---
Author Organization [facility] [place] [address] Care Team Providers Care Malt Liquors Sales Supervisor Name Role Phone Juana Bailey APRN Primary Care Provider +1- [phone] Reason for Visit * Reason Comments Medication Refill Encounter Details Date Type Department Care Team (Late st Contact Info) Description 09/25/2023 Refill [facility] [address] [place] [phone] Juana Bailey APRN [address] [place], [place] [id number] Medication Refill Social History Tobacco Use Types [...] Recorded PHQ-2 Total Score 0 11/07/2022 [facility] [place] of Occupat ional Health - Occupational Stress [...] PM EST Office Visit ASHELY PATEL [address] [place] [address] Juana Bailey APRN [address] [facility] [place] [address] documented as of this encounter Goals Goal [...] TABLET BY MOUTH 2 TIMES A DAY 08/27/2023 09/26/2023 documented as of this encounter Care Teams Malt Liquors Sales Supervisor Relationship Specialty Start Date End Date Juana Bailey APRN [address] [place], [place] [address] PCP - General Nurse Practitioner-Family 08/29/22 documented as of this encounter
--- OUTSIDE RECORDS SUMMARY | 2024-03-23 10:53 | XMS_ITS | Encounter Summary ---
Author Organization [place] [address] Care Team Providers Care Senior It Specialist Name Role Phone Juana Bailey APRN Primary Care Provider +1- [phone] Reason for Visit * Reason Comments Medication Refill Encounter Details Date Type Department Care Team (Late st Contact Info) Description 10/07/2023 Refill [facility] [address] [place] [phone] Juana Bailey APRN [address] [place], [place] [id number] Medication Refill Social History Tobacco Use Types [...] Date Recorded PHQ-2 Total Score 0 11/07/2022 [facility] [place] of Occupat ional Health - Occupational Stress [...] 1:00 PM EST Office Visit [facility] PATEL [address] [place] [phone] Juana Bailey APRN [address] [place] [address] documented as of this encounter Goals Goal [...] as of this encounter Care Teams Senior It Specialist Relationship Specialty Start Date End Date Juana Bailey APRN [address] [id number] PCP - General Nurse Practitioner-Family 08/29/22 documented as of this encounter
--- OUTSIDE RECORDS SUMMARY | 2024-03-23 10:53 | XMS_ITS | Encounter Summary ---
Author Organization [facility] [place] [address] Care Team Providers Care Energy Control Officer Name Role Phone Juana Bailey APRN Primary Care Provider +1- [phone] Reason for Visit * Reason Comments Medication Refill Encounter Details Date Type Department Care Team (Late st Contact Info) Description 06/20/2023 Refill [facility] [address] [place] [address] Juana Bailey APRN [address] [place] [address] Medication Refill Social History Tobacco Use [...] Date Recorded PHQ-2 Total Score 0 11/07/2022 [facility] of Occupat ional Health - Occupational Stress [...] PM EST Office Visit ASHELY PATEL [address] [phone] Juana Bailey APRN [address] [place] [address] documented as of this encounter Goals Goal Patient Goal Type Associated Problems Recent Progress Patient-Stated? Author Blood Pressure < 140/90 Blood Pressure 112/70(2023 8:24 AM EDT) No Juana Bailey APRN Maintain a healthy diet, exercise regularly and maintain an ideal body weight General No Noelle Yeh, JUAN BMI (Calculated) < 30 General 38.7(07/11/20 24 9:24 AM EDT) No Juana Bailey [...] documented as of this encounter Care Teams Energy Control Officer Relationship Specialty Start Date End Date Juana Bailey APRN [address] [place] [address] PCP - General Nurse Practitioner-Family 08/29/22 documented as of this encounter
--- OUTSIDE RECORDS SUMMARY | 2024-03-23 10:53 | XMS_ITS | Encounter Summary ---
Author Organization [place] [address] Care Team Providers Care Store Team Member Name Role Phone Juana Bailey APRN Primary Care Provider +1- [phone] Reason for Visit * Reason Comments Gynecologic Exam Encounter Details Date Type Department Care Team (Late st Contact Info) Description 05/22/2023 9:30 AM EST Office Visit [facility] [place] [address] [place] [phone] Juana Bailey APRN [address] [place] [address] Cervical cancer screening (Primary Dx); Screening for [...] Date Recorded PHQ-2 Total Score 0 11/07/2022 [facility] [place] of Occupat ional Health - Occupational Stress [...] for this visit: Cervical cancer screening - OR OBTAINING SCREEN PAP SMEAR - [facility] SALESPERSON NECKTIES CYTOLOGY ORDER; Future Screening for STDs (sexually transmitted diseases) - OR OBTAINING SCREEN PAP SMEAR - [facility] SALESPERSON NECKTIES CYTOLOGY ORDER; Future - ACUTE HEPATITIS PANEL; [...] PM EST Office Visit ASHELY PATEL [address] [place] [phone] Juana Bailey APRN [address] [facility] [place] [address] Scheduled Orders Name Type Priority Associated Diagnoses Orde r Schedule OR OBTAINING SCREEN PAP SMEAR OR Charge Routine Cervical cancer screening Screening for [...] 6.1( 9:55 AM EDT) No Lynn, Juana, LAW EXAMINER documented as of this encounter Procedures Procedure Name Priority Date/Time Associated Diagnosis Comments HIV AG/AB Routine 05/22/2023 10:14 AM EST Screening for STDs (sexually transmitted diseases) SYPHILIS SCREEN WITH REFLEX RPR QUANT Routine 05/22/2023 10:14 AM EST Screening for STDs (sexually transmitted diseases) ACUTE HEPATITIS PANEL Routine 05/22/2023 10:14 AM EST Screening for STDs (sexually transmitted diseases) SALESPERSON NECKTIES CYTOLOGY REQUEST (PAP ONLY) Routine 05/22/2023 9:58 AM EST Cervical cancer screening Screening for STDs (sexually transmitted diseases) TRICHOMONAS VAGINALIS BY TMA (PAP PANEL) Routine 05/22/2023 9:58 AM EST Cervical cancer screening Screening for STDs (sexually transmitted diseases) GC CHLAMYDIA THIN PREP Routine 05/22/2023 9:58 AM EST Cervical cancer screening Screening for STDs (sexually transmitted diseases) SE SALESPERSON NECKTIES CYTOLOGY ORDER Routine 05/22/2023 9:58 AM EST [...] <=0.99 Index Value 05/22/2023 5:42 PM EST [email or web address] Comment: < 1.00 - Non-Reactive ?? >=1.00 - Reactive NOTE: ??All reactive results will be reflexed to Quantitative Non-Treponemal(RPR)test. ?? Blood VENOUS BLOOD / Unknown Venipuncture / Unknown 05/22/2023 10:14 AM EST 05/22/2023 10:14 AM EST us Juana [place] LAW EXAMINER CHEMISTRY ORDERABLES Final Result [facility] [address] [facility] , [place] [address] * HIV AG/AB (05/22/2023 10:14 AM EST) HIV Ag/AB Non-Reactiv e Non-Reacti ve 05/22/2023 5:42 PM EST [facility] Blood VENOUS BLOOD / Unknown Venipuncture / Unknown 05/22/2023 10:14 AM EST 05/22/2023 10:14 AM EST us Juana [place] LAW EXAMINER IMMUNOLOGY ORDERABLES Final Result Performing Organization Address [facility] Co de Phone Number [facility] [address] [facility] , [address] [place] [phone] * ACUTE HEPATITIS PANEL (05/22/2023 10:14 AM [...] EST 05/22/2023 10:14 AM EST us Juana [place] LAW EXAMINER CHEMISTRY ORDERABLES Final Result Performing Organization Address City/[facility]/ZIP Co de Phone Number [facility] [address] [facility] , [address] [place] [phone] * TRICHOMONAS VAGINALIS BY TMA (PAP PANEL) (05/22/2023 9:58 AM EST) Trichomonas vaginalis by TMA Not Detected Not Detected 05/23/2023 10:43 PM EST [facility] Thin Prep SPECIMEN FROM UTERINE CERVIX / Unknown 05/22/2023 9:58 AM EST 05/22/2023 9:58 AM EST Narrative [facility] - 05/23/2023 10:43 PM EST Test methodology is gravity meter operator mediated amplification (TMA) using the Aptima Trichomonas vaginalis assay from [employer]. ?? A negative result does not completely [...] on these sample types were determined by [facility]. Juana Bailey APRN MICROBIOLOGY - GENERAL SURESH CALDERON Final Result [facility] [address] [facility] , [place] [address] * GC CHLAMYDIA THIN PREP (05/22/2023 9:58 AM EST) Chlamydia trachomatis Not Detected Not Detected 05/23/2023 10:58 PM EST [facility] Neisseria gonorrhoeae Not Detected Not Detected 05/23/2023 10:58 PM EST [facility] Thin Prep SPECIMEN FROM UTERINE CERVIX / Unknown 05/22/2023 9:58 AM EST 05/22/2023 9:58 AM EST Narrative [facility], [facility] - 05/23/2023 10:58 PM EST Testing methodology is gravity meter operator mediated amplification (TMA) using the Aptima Combo 2 assay from [employer]. A negative result does not completely rule [...] request. Juana Bailey APRN MICROBIOLOGY - GENERAL ORD KVNG Final Result [email or web address] [address] [place] [address] , [place] [address] * HPV HIGH RISK WITH REFLEX TO GENOTYPE (05/22/2023 9:58 AM EST) HPV HR Reflex Not Detected Not Detected 024 11:08 PM EST [email or web address] Thin Prep SPECIMEN FROM UTERINE CERVIX / Unknown 05/22/2023 9:58 AM EST 05/22/2023 9:58 AM EST Narrative [email or web address] - 05/23/2023 11:08 PM EST This test [...] with other available laboratory and clinical data.?? Juana Bailey APRN MICROBIOLOGY - GENERAL SURESH CALDERON Final Result [facility] [address] [facility] , [place] [address] * SALESPERSON NECKTIES CYTOLOGY REQUEST (PAP ONLY) (05/22/2023 9:58 AM EST) CASE REPORT Gynecologic Cytology Report ? Case: [id number] ? Authorizing Provider: ??Juana Bailey APRN ? Collected: ? 05/22/2023957 ? Ordering Location: ? [facility] [place] [facility] ?Received: ?05/22/2023957 ? First Screen: ?Jose Douglas, ? [place] ? Specimen: ?LIQUID-BASED PAP - CERVICAL/ENDOCERV ICAL, Cervix, Endocervical ? 05/25/2023 1:17 PM EST [facility] PAP FINAL DIAGNOSIS Negative for intraepithelial lesion or malignancy 05/25/2023 1:17 PM [facility] OSCOPIC DESCRIPTION Microscopic examination is performed and the findings corroborate the diagnosis. 05/25/2023 1:17 PM EST [facility] PAP SMEAR ADEQUACY Satisfactory for evaluation 05/25/2023 1:17 PM EST [facility] PAP ORGANISMS NOTED Shift in claus suggestive of bacterial vaginosis. 05/25/2023 1:17 PM EST [facility] ENDOCERVICAL T-ZONE Transformation Zone Absent. This is not unusual in a post-menopausal woman. 05/25/2023 1:17 PM EST [facility] EMBEDDED IMAGES 1:17 PM [facility] PAP DISCLAIMER The Pap Smear is a screening test that aids in the detection of cervical cancer and cancer precursors. Both false positive and false negative results can occur. The test should be used at regular intervals, and positive results should be confirmed before definitive therapy. Processed using the ThinPrep Vertical Lathe Operator Automated cytology screening device (Vimty). 05/25/2023 1:17 PM [facility] Thin Prep ENDOCERVICAL STRUCTURE / Unknown 05/22/2023 9:58 AM EST 05/22/2023 9:58 AM EST Juana Bailey APRN CYTOLOGY ORDERABLES Final R esult [facility] [address] [place] [address] documented in this encounter Visit [...] documented as of this encounter Care Teams Store Team Member Relationship Specialty Start Date End Date Juana Bailey APRN [address] [place] [address] PCP - General Nurse Practitioner-Family 08/29/22 documented as of this encounter
--- OUTSIDE RECORDS SUMMARY | 2024-03-23 10:53 | XMS_ITS | Encounter Summary ---
Author Organization [facility] [place] [address] Care Team Providers Care Dietary Services Manager Name Role Phone Juana Bailey APRN Primary Care Provider +1- [phone] Reason for Visit * Reason Onset Date Comments Appointment Needed 09/10/2023 Office Visit Encounter Details Date Type Department Care Team (Late st Contact Info) Description 09/10/2023 Telephone [facility] [address] [place] [address] Juana Bailey APRN [address] [facility] [address] Appointment Needed (Office Visit) Social History [...] Date Recorded PHQ-2 Total Score 0 10/24/2023 [facility] [place] of Occupat ional Health - [...] Assessment Author No 11/07/2022 2:28 PM EDT [facility] CHELSI Campbell documented as of this encounter Mental Status [...] Description 05/07/2024 1:00 PM EST Office Visit [facility] [place] [facility] [address] [place] [phone] Juana Bailey APRN [address] [place] [address] documented as of this encounter Goals Goal [...] on filedocumented in this encounter Care Teams Dietary Services Manager Relationship Specialty Start Date End Date Juana Bailey APRN [address] [place] [address] PCP - General Nurse Practitioner-Family 08/29/22 documented as of this encounter
--- OUTSIDE RECORDS SUMMARY | 2024-03-23 10:53 | XMS_ITS | Encounter Summary ---
Author Organization [place] [address] Care Team Providers Care Stem Frazer Name Role Phone Juana Bailey APRN Primary Care Provider +1- [phone] Reason for Visit * Reason Comments Medication Refill Encounter Details Date Type Department Care Team (Late st Contact Info) Description 05/20/2023 Refill [facility] [address] [place] [address] Juana Bailey APRN [address] [place] [address] Medication Refill Social History Tobacco Use [...] Total Score 0 11/07/2022 [facility] [place] of Occupat ional Health - Occupational Stress [...] EST Office Visit ASHELY PATEL [address] [place] [address] Juana Bailey APRN [address] [facility] [place] [address] documented as of this encounter Goals Goal [...] TABLET BY MOUTH 2 TIMES A DAY 04/23/2023 05/20/2023 documented as of this encounter Care Teams Stem Frazer Relationship Specialty Start Date End Date Juana Bailey APRN [address] [place], [place] [address] PCP - General Nurse Practitioner-Family 08/29/22 documented as of this encounter
--- OUTSIDE RECORDS SUMMARY | 2024-03-23 10:53 | XMS_ITS | Encounter Summary ---
Author Organization [place] [address] Care Team Providers Care Journeyman Meat Cutter Name Role Phone Juana Bailey APRN Primary Care Provider +1- [phone] Reason for Visit * Reason Comments Medication Refill Encounter Details Date Type Department Care Team (Late st Contact Info) Description 09/04/2023 Refill [facility] [address] [place] [address] Juana Bailey APRN [address] [place] [address] Medication Refill Social History Tobacco Use [...] Date Recorded PHQ-2 Total Score 0 11/07/2022 [facility] [place] of Occupat ional Health - Occupational Stress [...] EST Office Visit [facility] N[facility] PATEL [address] [place] [phone] Juana Bailey APRN [address] [place] [address] documented as of this encounter Goals Goal [...] documented as of this encounter Care Teams Journeyman Meat Cutter Relationship Specialty Start Date End Date Juana Bailey APRN [address] [place] [id number] PCP - General Nurse Practitioner-Family 08/29/22 documented as of this encounter
--- OUTSIDE RECORDS SUMMARY | 2024-03-23 10:53 | XMS_ITS | Encounter Summary ---
Author Organization [place] [address] Care Team Providers Care Dust Mixer Name Role Phone Juana Bailey APRN Primary Care Provider +1- [phone] Reason for Visit * Reason Onset Date Comments Results 05/24/2023 Lab Syphilis,HIV ,Acute Hepatitis Encounter Details Date Type Department Care Team (Late st Contact Info) Description 05/24/2023 Telephone [facility] [address] [place] [address] Juana Bailey APRN [address] [place] [address] Results (Lab Syphilis,HIV,Acute Hepatitis) Social History [...] Date Recorded PHQ-2 Total Score 0 11/07/2022 [facility] [place] of Occupat ional Health - Occupational Stress [...] PM EST Office Visit ASHELY PATEL [address] [place] [phone] Juana Bailey APRN [address] [place] [address] documented as of this encounter Goals Goal [...] on filedocumented in this encounter Care Teams Dust Mixer Relationship Specialty Start Date End Date Juana Bailey APRN [address] [place], [place] [id number] PCP - General Nurse Practitioner-Family 08/29/22 documented as of this encounter
--- OUTSIDE RECORDS SUMMARY | 2024-03-23 10:53 | XMS_ITS | Encounter Summary ---
Author Organization [place] [address] Care Team Providers Care Admission Specialist Name Role Phone Juana Bailey APRN Primary Care Provider +1- [phone] Reason for Visit * Reason Comments Medication Refill Encounter Details Date Type Department Care Team (Late st Contact Info) Description 08/05/2023 Refill [facility]P Nati [address] [place] [phone] Juana Bailey APRN [address] [place], [place] [id number] Medication Refill Social History Tobacco Use Types [...] Recorded PHQ-2 Total Score 0 11/07/2022 [facility] [place] of Occupat ional Health - Occupational [...] PM EDT Trazodone Medication Refill Protocol passed. final operations technician Action: Approved 90-day supply with sufficient refills [...] EST Office Visit [facility] [place] [facility] [address] [place] [phone] Juana Bailey APRN [address] [place] [address] documented as of this encounter Goals Goal [...] documented as of this encounter Care Teams Admission Specialist Relationship Specialty Start Date End Date Juana Bailey APRN [address] [place] [address] PCP - General Nurse Practitioner-Family 08/29/22 documented as of this encounter
--- OUTSIDE RECORDS SUMMARY | 2024-03-23 10:53 | XMS_ITS | Encounter Summary ---
Author Organization [place] [address] Care Team Providers Care Surgical Garment Assembler Name Role Phone Juana Bailey APRN Primary Care Provider +1- [phone] Encounter Details Date Type Department Care Team (Late st Contact Info) Description 05/28/2023 Orders Only SEP Nati [address] [place] [address] Juana Bailey APRN [address] [place] [address] Social History Tobacco Use Types Packs/Day [...] Recorded PHQ-2 Total Score 0 11/07/[address] [facility] [place] of Occupat ional Health - Occupational Stress [...] EST Office Visit [facility] [place] [facility] [address] [phone] Juana Bailey APRN [address] [facility] [place] [address] documented as of this encounter Goals Goal [...] on filedocumented in this encounter Care Teams Surgical Garment Assembler Relationship Specialty Start Date End Date Juana Bailey APRN [address] [place] [address] BILL [place] [address] PCP - General Nurse Practitioner-Family 08/29/22 documented as of this encounter
--- OUTSIDE RECORDS SUMMARY | 2024-03-23 10:53 | XMS_ITS | Encounter Summary ---
Author Organization [place] [address] Care Team Providers Care Melter Caster Name Role Phone Juana Bailey APRN Primary Care Provider +1- [phone] Reason for Visit * Reason Onset Date Comments Symptom Call 06/28/2023 multiple sx Encounter Details Date Type Department Care Team (Late st Contact Info) Description 06/28/2023 Telephone SEP Nati [address] [place] [address] Juana Bailey APRN [address] [facility] [place] [address] Symptom Call (multiple sx ) Social [...] Date Recorded PHQ-2 Total Score 0 11/07/2022 [facility] [place] of Occupat ional Health - Occupational Stress [...] she tested positive for covid Pharmacy & Location:[facility] Additional Notes: documented in this encounter Plan of Treatment Upcoming Encounters Date Type Department Care Team (Late st Contact Info) Description 05/07/2024 1:00 PM EST Office Visit [facility] [place] [facility] [address] [phone] Juana Bailey APRN [address] [place] [address] documented as of this encounter Goals Goal Patient Goal Type Associated Problems Recent Progress Patient-Stated? Author Blood Pressure < 140/90 Blood Pressure 112/70(2023 8:24 AM EDT) No LynnJuana, TRAY DRIER OPERATOR Maintain a healthy diet, exercise regularly and maintain an ideal body weight General No Noelle Yeh RMA BMI (Calculated) < 30 General 38.7(10/24/19 24 9:24 AM EDT) No Juana Bailey, TRAY DRIER OPERATOR Stay Tobacco Free Lifestyle No Juana Bailey TRAY DRIER OPERATOR HEMOGLOBIN A1C < 7.0 Result Component 6.1( 4 9:55 AM EDT) No Juana Bailey TRAY DRIER OPERATOR documented as of this encounter Visit Diagnoses Not on filedocumented in this encounter Care Teams Melter Caster Relationship Specialty Start Date End Date Juana Bailey APRN [address] [place] [address] PCP - General Nurse Practitioner-Family 08/29/22 documented as of this encounter
--- OUTSIDE RECORDS SUMMARY | 2024-03-23 10:53 | XMS_ITS | Encounter Summary ---
Author Organization [place] [address] Care Team Providers Care Powerhouse Electrician Apprentice Name Role Phone Juana Bailey APRN Primary Care Provider +1- [phone] Reason for Visit * Reason Onset Date Comments Results 05/29/2023 [facility] ROLL LINE OPERATOR CYTOLOGY ORDER Encounter Details Date Type Department Care Team (Late Contact Info) Description 05/29/2023 Telephone SEP Nati PATEL [address] [place] [address] Juana Bailey APRN [address] [place] [address] Results ([facility] ROLL LINE OPERATOR CYTOLOGY ORDER) Social History Tobacco Use Types [...] Date Recorded PHQ-2 Total Score 0 11/07/2022 [facility] [place] of Occupat ional Health - Occupational Stress [...] Results Patient called for results on Lab [facility] ROLL LINE OPERATOR CYTOLOGY ORDER Which Provider ordered the test? Juana Bailey Date of test: 05/22/23 Advised patient of: abnormal result. Patient Instructions/ Questions: n/a Medications Ordered/Pended (if yes, list medication): Yes flagyl Medications/Orders Needed: No Pharmacy Location Verified: No Other: Please put in the patient results note that pt is aware of the following results [facility] ROLL LINE OPERATOR CYTOLOGY ORDER Juana Bailey, DIRECTOR MBA 05/28/2023 11:39 AM EST Does have a [...] EST Office Visit [facility] [place] [facility] [address] [place] [phone] Juana Bailey APRN [address] [facility] [place] [address] documented as of this encounter Goals Goal [...] on filedocumented in this encounter Care Teams Powerhouse Electrician Apprentice Relationship Specialty Start Date End Date Juana Bailey APRN [address] [place] [address] BILL [place] [address] PCP - General Nurse Practitioner-Family 08/29/22 documented as of this encounter
--- OUTSIDE RECORDS SUMMARY | 2024-03-23 10:53 | XMS_ITS | Encounter Summary ---
Author Organization [place] [address] Care Team Providers Care Plow Holder Name Role Phone Juana Bailey APRN Primary Care Provider +1- [phone] Reason for Visit * Reason Onset Date Comments Other 09/24/2023 Incoming fax for supplies Encounter Details Date Type Department Care Team (Late Contact Info) Description 09/24/2023 Telephone SEP Nati [address] [place] [address] Juana Bailey APRN [address] [facility] [place] [address] Other (Incoming fax for supplies ) [...] Date Recorded PHQ-2 Total Score 0 10/24/2023 [facility] [place] of Occupat ional Health - Occupational Stress [...] once completed * Telephone Encounter - Tyrone aMjor RMA - 09/24/2023 4:56 PM EDT Select [...] this information need to go: Fax to [phone] Additional information: Will go ahead and fax again now documented in this encounter Plan of Treatment Upcoming Encounters Date Type Department Care Team (Late st Contact Info) Description 05/07/2024 1:00 PM EST Office Visit [facility] [place] [facility] [address] [phone] Juana Bailey APRN [address] [place] [address] documented as of this encounter Goals Goal [...] on filedocumented in this encounter Care Teams Plow Holder Relationship Specialty Start Date End Date Juana Bailey APRN [address] [place] [address] PCP - General Nurse Practitioner-Family 08/29/22 documented as of this encounter
--- OUTSIDE RECORDS SUMMARY | 2024-03-23 10:53 | XMS_ITS | Encounter Summary ---
Author Organization [place] [address] Care Team Providers Care Exercise Physiology Professor Name Role Phone Juana Bailey APRN Primary Care Provider +1- [phone] Reason for Visit * Reason Comments Diabetes Encounter Details Date Type Department Care Team (Latest Contact Info) Description 06/21/2023 9:15 AM EST Office Visit [facility] [place] [address] [place] [phone] Juana Bailey APRN [address] [place] [address] Type 2 diabetes mellitus with hyperlipidemia (HCC) [...] Date Recorded PHQ-2 Total Score 0 11/07/2022 [facility] [place] of Occupat ional [facility] - Occupational Stress Questionnaire Answer Date Recorded [...] PM EST Office Visit [facility] [place] [address] [place], [place] [address] Juana Bailey APRN [address] [place] [address] documented as of this encounter Goals Goal [...] <200 mg/dL 06/21/2023 5:25 PM EST [facility] Comment: < 200 ?Desirable 200 - 239 ? Borderline High >= 240 ?High Triglyceride 171(H) <150 mg/dL 06/21/2023 5:25 PM EST [facility] Comment: < 150 ? Normal 150 - 199 ?Borderline High 200 - 499 ?High ??>= 500 ? Very High HDL 46 >=40 mg/dL 06/21/2023 5:25 PM EST [facility] [email or web address] Comment: ??> 60 ?Optimal 40 - 60 ?Acceptable ?? < 40 ?Low LDL Calculated 97 <100 mg/dL 06/21/2023 5:25 PM EST [facility] [employer] [email or web address] Non-HDL-C Calculated 127 <=129 mg/dL 06/21/2023 5:25 PM EST [facility] [email or web address] Comment: <130 ?Desirable 130-159 Above Desirable 160-189 Borderline High 190-219 High >= 220 ??Very High Fasting Specimen? Yes None 024 5:25 PM EST [facility] Blood VENOUS BLOOD / Unknown Venipuncture / Unknown 06/21/2023 9:47 AM EST 06/21/2023 9:47 AM EST Juana Bailey APRN CHEMISTRY ORDERABLES Final Result Performing Organization Address [facility] Co de Phone Number [facility] [employer], [facility] [address] [facility] , [facility] [place] [address] [facility] [address] [place] [address] * URIC ACID (06/21/2023 9:47 AM EST) [facility] Uric Acid 3.0 2.4 - 5.7 mg/dL 06/21/2023 5:25 PM EST [facility] [employer] [facility] Blood VENOUS BLOOD / Unknown Venipuncture / Unknown 06/21/2023 9:47 AM EST 06/21/2023 9:47 AM EST Juana Bailey APRN CHEMISTRY ORDERABLES Final Result Performing Organization Address City/[facility]/ZIP Co de Phone Number [facility] [employer] [facility] [address] [facility] , [place] [address] * (ABNORMAL) HEMOGLOBIN A1C (06/21/2023 9:47 AM EST) [facility] Hgb A1C 6.3(H) 4.2 - 5.6 % 06/21/2023 4:19 PM EST [facility] Est. Avg Glucose 134 mg/dL 06/21/2023 4:19 PM EST [facility], [facility] Blood VENOUS BLOOD / Unknown Venipuncture / Unknown 06/21/2023 9:47 AM EST 06/21/2023 9:47 AM EST Narrative [facility] - 06/21/2023 4:19 PM EST REFERENCE RANGE: Normal: 4.0-5.6% Pre-diabetes: 5.7-6.4% Provisional diagnosis of diabetes: >6.4% Hgb F>10% and anything which shortens red cell survival, such as hemolytic anemia, or unstable hemoglobin variants such as HbSS, HbSC, or HbCC, will lower the HbA1c value associated with a given level of glycemic control. ? Juana Bailey MOP HANDLE ASSEMBLER CHEMISTRY ORDERABLES Final Result [facility], [facility] [address] [facility] , [place] [address] * (ABNORMAL) COMPREHENSIVE METABOLIC PANEL (06/21/2023 9:47 AM EST) [facility] Sodium 139 136 - 145 mmol/L 06/21/2023 5:25 PM EST [facility] Potassium 4.1 3.5 - 5.0 mmol/L 06/21/2023 5:25 PM EST [facility] Chloride 98 98 - 107 mmol/L 06/21/2023 5:25 PM EST [facility] Total CO2 30(H) 22 - 29 mmol/L 06/21/2023 5:25 PM EST [facility] Anion Gap 11 7 - 16 mmol/L 06/21/2023 5:25 PM EST [facility] Calcium 10.7(H) 8.6 - 10.4 mg/dL 06/21/2023 5:25 PM EST [facility] Glucose Lvl 102(H) 70 - 99 mg/dL 06/21/2023 5:25 PM EST [facility] BUN 22(H) 6 - 20 mg/dL 06/21/2023 5:25 PM EST [facility], [facility] Creatinine 0.85 0.51 - 1.30 mg/dL 06/21/2023 5:25 PM EST [facility], [facility] Albumin 4.2 3.5 - 5.2 gm/dL 06/21/2023 5:25 PM EST [facility], [facility] Total Protein 7.9 6.4 - 8.3 gm/dL 06/21/2023 5:25 PM EST [facility], [facility] Bili Total 0.5 0.2 - 1.3 mg/dL 06/21/2023 5:25 PM EST [facility], [facility] ALT 23 <=41 U/L 06/21/2023 5:25 PM EST [facility] AST 27 <=40 U/L 06/21/2023 5:25 PM EST [facility], [facility] Alk Phos 91 36 - 123 U/L 06/21/2023 5:25 PM EST [facility], [facility] eGFR (CKD-EPIcr 2020) 81 >=60 mL/min/1.7 3 m2 06/21/2023 5:25 PM EST [facility] Comment:Estimated GFR was ca lculated using the CKD-EPIcr (2020) equation refit without race. The equation is recommended by the National Kidney Foundation - [place] Society of Nephrology Task Force. Blood VENOUS BLOOD / Unknown Venipuncture / Unknown 06/21/2023 9:47 AM EST 06/21/2023 9:47 AM EST Juana Bailey MOP HANDLE ASSEMBLER CHEMISTRY ORDERABLES Final Result [facility], [address] , [place] [address] [facility] [address] [place] [address] documented in this encounter Visit Diagnoses [...] documented as of this encounter Care Teams Exercise Physiology Professor Relationship Specialty Start Date End Date Juana Bailey APRN [address] [place] [address] PCP - General Nurse Practitioner-Family 08/29/22 documented as of this encounter
--- OUTSIDE RECORDS SUMMARY | 2024-03-23 10:53 | XMS_ITS | Encounter Summary ---
Author Organization [place] [address] Care Team Providers Care Site Supervisor Name Role Phone Juana Bailey APRN Primary Care Provider +1- [phone] Reason for Visit * Reason Comments Medication Refill Encounter Details Date Type Department Care Team (Late st Contact Info) Description 09/10/2023 Telephone SEP Nati [address] [place] [address] Juana Bailey APRN [address] [place] [address] Medication Refill Social History Tobacco Use Types Packs/Day Years Used Date Smoking Tobacco: Never Smokeless Tobacco: Current Snuff Alcohol Use Standard Drinks/Week Comments Not Currently 0 (1 standard drink = 0.6 oz pur e alcohol) Overall Financial Resource Strain ([facility]) Answe r Date Recorded How hard is it for you to pa y for the very basics like food, housing, medical care, and heating? Not very hard 03/05/2023 PHQ-2 Answer Date Recorded PHQ-2 Total Score 0 11/07/2022 [facility] [place] of Occupat ional Health - Occupational Stress [...] does this information need to go: pcp [facility] Additional information: please advise documented in this encounter Plan of Treatment Upcoming Encounters Date Type Department Care Team (Late st Contact Info) Description 05/07/2024 1:00 PM EST Office Visit [facility] PATEL [address] [place] [phone] Juana Bailey APRN [address] [place] [address] documented as of this encounter Goals Goal [...] Coronary atherosclerosis of unspecified type of vessel, wiyot or graft documented in this encounter Discontinued Medications Medication Sig Discontinue Reason Start Date End Da te dapagliflozin propanediol (FARXIGA) 10 mg Oral TabletIndications:Stage 3b chronic kidney disease (HCC),Type 2 diabetes mellitus with hyperlipidemia (HCC),ASHD (arteriosclerotic heart disease) TAKE ONE TABLET BY MOUTH ONCE A DAY 03/06/2023 09/10/2023 documented as of this encounter Care Teams Site Supervisor Relationship Specialty Start Date End Date Juana Bailey APRN [address] [place] [address] PCP - General Nurse Practitioner-Family 08/29/22 documented as of this encounter
--- OUTSIDE RECORDS SUMMARY | 2024-03-23 10:53 | XMS_ITS | Encounter Summary ---
Author Organization [place] [address] Care Team Providers Care Bellows Charger Assembler Name Role Phone Juana Bailey APRN Primary Care Provider +1- [phone] Reason for Visit * Reason Comments Medication Refill Encounter Details Date Type Department Care Team (Late st Contact Info) Description 08/26/2023 Refill SEP Nati [address] [place] [address] Juana Bailey APRN [address] [place] [address] Medication Refill Social History Tobacco Use [...] Date Recorded PHQ-2 Total Score 0 11/07/2022 [facility] [place] of Occupat ional Health - Occupational Stress [...] PM EST Office Visit [facility]LY [facility] [address] [place] [address] Juana Bailey APRN [address] [place] [address] documented as of this encounter Goals Goal [...] TABLET BY MOUTH 2 TIMES A DAY 07/24/2023 08/27/2023 documented as of this encounter Care Teams Bellows Charger Assembler Relationship Specialty Start Date End Date Juana Bailey APRN [address] [place], [place] [address] PCP - General Nurse Practitioner-Family 08/29/22 documented as of this encounter
--- OUTSIDE RECORDS SUMMARY | 2024-03-23 10:53 | XMS_ITS | Encounter Summary ---
Author Organization [facility] [place] [address] Care Team Providers Care Cooker Meal Name Role Phone Juana Bailey APRN Primary Care Provider +1- [phone] Reason for Visit * Reason Comments Congestion Cough Encounter Details Date Type Department Care Team (Late st Contact Info) Description 06/26/2023 11:00 AM EDT Office Visit [facility] [address] [email or web address] [phone] Radha Lozano, DO [email or web address] [place], [place] [id number] Viral illness (Primary Dx); Sinus pressure; Cough, [...] Date Recorded PHQ-2 Total Score 0 11/07/2022 [facility] [place] of Occupat ional Health - Occupational Stress [...] Date COVID-19 antigen test (COVID-19 AT-HOME TEST) [facility] KitIndications:Coug h, unspecified type 1 Each by [facility]Non-D rug; Combo Route) route once for 1 dose. 1 Kit 06/26/2023 06/26/2023 documented in this encounter Progress Notes * Radha Lozano DO - 06/26/2023 11:00 AM EDT Assessment Diagnoses and all orders for this visit: Viral illness Sinus pressure - betamethasone acet-betamethasone sodium phos (CELESTONE) injection 12 mg - methylPREDNISolone acetate (DEPO-Medrol) injection 40 mg Cough, unspecified type - POCT TARAN SARS ANTIGEN - POCT TARAN INFLUENZA A/B - COVID-19 antigen test (COVID-19 AT-HOME TEST) [facility] Kit; 1 Each by [facility]Non- Drug; Combo Route) route once for 1 [...] EST Office Visit [facility] [place] [facility] [address] [place] [phone] Juana Bailey APRN [address] [place] [address] documented as of this encounter Goals Goal Patient Goal Type Associated Problems Recent Progress Patient-Stated? Author Blood Pressure < 140/90 Blood Pressure 112/70(2023 8:24 AM EDT) No Juana Bailey APRN Maintain a healthy diet, exercise regularly and maintain an ideal body weight General No Noelle Yeh RMA BMI (Calculated) < 30 General 38.7(10/24/19 24 9:24 AM EDT) No LynnJuana APRN Stay Tobacco Free Lifestyle No Juana [...] ORDERABLE S Final Result [facility] [place] [address] [place] [address] documented in this encounter Visit Diagnoses Diagnosis [...] Quadrant documented in this encounter Care Teams Cooker Meal Relationship Specialty Start Date End Date Juana Bailye APRN [address] [place] [address] PCP - General Nurse Practitioner-Family 08/29/22 documented as of this encounter
--- OUTSIDE RECORDS SUMMARY | 2024-03-23 10:53 | XMS_ITS | Encounter Summary ---
Author Organization [place] [address] Care Team Providers Care Society Reporter Name Role Phone Juana Bailey APRN Primary Care Provider +1- [phone] Reason for Visit * Reason Comments Medication Refill Encounter Details Date Type Department Care Team (Late st Contact Info) Description 10/21/2023 Refill SEP Nati [address] [place] [address] Juana Bailey APRN [address] [place] [address] Medication Refill Social History Tobacco Use [...] Date Recorded PHQ-2 Total Score 0 11/07/2022 [facility] [place] of Occupat ional Health - Occupational Stress [...] Quiroz CPhT - 10/22/2023 4:14 PM EDT Farxiga 10- Medication Refill Protocol passed. Sylvain Action: Approved 90 day supply with sufficient refills to noted follow-up date by provider or protocol if no follow-up date noted, not to exceed 90 days past that date. documented in this encounter Plan of Treatment Upcoming Encounters Date Type Department Care Team (Late st Contact Info) Description 05/07/2024 1:00 PM EST Office Visit [facility]LY [facility] [address] [place] [phone] Juana Bailey APRN [address] [place] [address] documented as of this encounter Goals Goal [...] Coronary atherosclerosis of unspecified type of vessel, reno-sparks or graft documented in this encounter Discontinued Medications Medication Sig Discontinue Reason Start Date End Da te FARXIGA 10 mg Oral TabletIndications:Stage 3b chronic kidney disease (HCC),Type 2 diabetes mellitus with hyperlipidemia (HCC),ASHD (arteriosclerotic heart disease) TAKE ONE TABLET BY MOUTH ONCE A DAY 09/10/2023 10/22/2023 documented as of this encounter Care Teams Society Reporter Relationship Specialty Start Date End Date Juana Bailey APRN [address] [place] [address] PCP - General Nurse Practitioner-Family 08/29/22 documented as of this encounter
--- OUTSIDE RECORDS SUMMARY | 2024-03-23 10:53 | XMS_ITS | Encounter Summary ---
Author Organization [place] [address] Care Team Providers Care Dialysis Rn Name Role Phone Juana Bailey APRN Primary Care Provider +1- [phone] Reason for Visit * Reason Onset Date Comments Medication Management 06/24/2023 Needs rx r esent Encounter Details Date Type Department Care Team (Late Contact Info) Description 06/24/2023 Telephone SEP Nati [address] [place] [address] Juana Bailey APRN [address] [place] [address] Medication Management (Needs rx resent) Social [...] Date Recorded PHQ-2 Total Score 0 11/07/2022 [facility] [place] of Occupat ional Health - Occupational Stress [...] Assessment Author No 11/07/2022 2:28 PM EDT Socrates, A bull Yvonne, CCMA * Does this person have difficulty [...] once a week. 3 mL 11 01/17/20 24 documented in this encounter Miscellaneous Notes * [...] mL) subcutaneous pen injector (semaglutide) Prescribing provider: [place] What are your concerns/request: pharmacy states this was cancelled and it needs to be resent. Desired outcome: Other resend to pharmacy Last appointment date: 06/20 Pharmacy: [email or web address] Additional notes: na documented in this encounter Plan of Treatment Upcoming Encounters Date Type Department Care Team (Late st Contact Info) Description 05/07/2024 1:00 PM EST Office Visit [facility] [address] [place] [address] Juana Bailey APRN [address] [facility] [place] [address] documented as of this encounter Goals Goal [...] documented as of this encounter Care Teams Dialysis Rn Relationship Specialty Start Date End Date Juana Bailey APRN [address] [place] [address] [place] [address] PCP - General Nurse Practitioner-Family 08/29/22 documented as of this encounter
--- OUTSIDE RECORDS SUMMARY | 2024-03-23 10:53 | XMS_ITS | Encounter Summary ---
Author Organization [place] [address] Care Team Providers Care Boiling House Hand Name Role Phone Juana Bailey APRN Primary Care Provider [phone]- [phone] Reason for Visit * Reason Comments Medication Refill Encounter Details Date Type Department Care Team (Late st Contact Info) Description 07/23/2023 Refill [facility] [address] [place] [address] Juana Bailey APRN [address] [place] [address] Medication Refill Social History Tobacco Use [...] Date Recorded PHQ-2 Total Score 0 11/07/2022 [facility] of Occupat ional Health - Occupational Stress [...] PM EST Office Visit ASHELY PAT[facility] [address] [place] [address] Juana Bailey APRN [address] [place] [address] documented as of this encounter Goals Goal [...] TABLET BY MOUTH 2 TIMES A DAY 06/20/2023 07/24/2023 documented as of this encounter Care Teams Boiling House Hand Relationship Specialty Start Date End Date Juana Bailey APRN [address] [place] [address] PCP - General Nurse Practitioner-Family 08/29/22 documented as of this encounter
--- OUTSIDE RECORDS SUMMARY | 2024-03-23 10:53 | XMS_ITS | Encounter Summary ---
Author Organization [place] [address] Care Team Providers Care Furnace Maintenance Name Role Phone Juana Bailey APRN Primary Care Provider +1- [phone] Reason for Visit * Reason Comments Annual Exam SSI wants her screen ed for depression Encounter Details Date Type Department Care Team (Latest Contact Info) Description 10/24/2023 9:30 AM EDT Office Visit ASHE[facility] [place] [address] [place] [phone] Juana Bailey APRN [address] [place], [place] [id number] Annual physical exam (Primary Dx); Type 2 [...] Date Recorded PHQ-2 Total Score 0 10/24/2023 [facility] [place] [facility] Occupat ional Health - Occupational Stress [...] EDAlden Al CCMA documented in this encounter Progress Notes * Juana Bailey APRN - 10/24/2023 12:05 PM EDTAssociated Problem(s): Grief reaction 11/07/2022 2:29 PM 10/24/2023 9:27 AM PHQ Depression Scale Little interest or pleasure in doing things 0 0 Feeling down, depressed, or hopeless 0 0 PHQ-2 Total Score 0 0 PHQ-9 Total Score 0 0 * Juana BaileyZAHRA - 10/24/2023 9:30 AM EDT Assessment Diagnoses [...] 25 HYDROXY; Future Screening for depression - [place] BEHAV ASSMT W/SCORE & DOCD/STAND INSTRUMENT Sacroiliitis (HCC) (Chronic) Overview: Managed by Dr. 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 Once daily b fdyrpgx-A-jfgof acid (NEPHROCAP) 1 mg Oral Capsule Take [...] Living Expenses: Not very hard Received from [facility], [facility] Food Insecurity Transportation Needs: No Transportation Needs (03/05/2023) PRAPARE - Transportation Lack of Transportation (Medical): No Lack of Transportation (Non-Medical): No Physical Activity: Inactive (03/05/2023) Exercise Vital Sign Days of Exercise per Week: 0 days Minutes of Exercise per Session: 0 min Stress: No Stress Concern Present (03/05/2023) [facility] [place] [facility] - Occupational Stress Questionnaire Feeling of Stress : Only a little [facility] Family and Community Support Received from [facility] Abuse Screen Received from [facility] Housing Stability Family History Problem Relation Age [...] EST Office Visit [facility] [address] [place] [phone] Juana Bailey APRN [address] [place], [place] [id number] Scheduled Orders Name Type Priority Associated Diagnoses Orde r Schedule W[place] BEHAV ASSMT W/SCORE & DOCD/STAND INSTRUMENT [place] Charge Routine Screening for depression Ordered: 10/24/2023 [...] Microalb <12.0 mg/L 10/24/2023 4:23 PM EDT [employer] [employer] Urine Creatinine 96.8 mg/dL 10/24/19 24 4:23 PM EDT [employer] [employer] Ur Microalb/Creat 024 4:23 PM EDT [employer] Comment: Because the albumin level is below the level of detection in this urine specimen, the laboratory is unable to calculate a reliable albumin/creatinine ratio. Microalbuminuria is unlikely if the urine albumin concentration is less than 20- 30 mg/L in a random specimen. Urine URINE SPECIMEN COLLECTION / Unknown 10/24/2023 11:36 AM EDT 10/24/2023 11:36 AM EDT us Juana Bailey SURGERY NURSE URINE ORDERABLES Final Resu lt [facility]REF[facility]ED [facility] Foodist, [employer] [address] [place] [address] , [place] [address] * VITAMIN D 25 HYDROXY (10/24/2023 9:55 AM EDT) [facility] Vit D 25 OH 49.8 30.0 - 150.0 ng/mL 10/24/2023 5:21 PM EDT [facility]ist, [employer] Comment: Preferred: >= 30 ng/mL Insufficient: 21-29 ng/mL Deficient <= 20 ??ng/mL Possible Toxicity: >150 ng/mL Samples should not be taken from patients receiving therapy with high biotin doses (i.e. > 5 mg/day) until at least 8 hours following the last biotin administration. Blood VENOUS BLOOD / Unknown Venipuncture / Unknown 10/24/2023 9:55 AM EDT 10/24/2023 9:55 AM EDT [facility] CHEMISTRY ORDERABLES Final Result Performing Organization Address [facility] Phone Number [address] [place] [address] * VITAMIN B12/ FOLIC ACID (10/24/2023 9:55 AM EDT) [facility] Vitamin B12 819 232 - 1,245 pg/mL 10/24/2023 5:21 PM EDT [facility] Folate >16.00 >=4.80 ng/mL 10/24/2023 5:21 PM EDT [facility] Foodist, [employer] Blood VENOUS BLOOD / Unknown Venipuncture / Unknown 10/24/2023 9:55 AM EDT 10/24/2023 9:55 AM EDT Narrative [facility] - 10/24/2023 5:21 PM EDT Ingestion of omar doses of biotin (>5 mg/day) taken within 8 hours of drawing blood sample can interfere with this immunoassay test. [facility] CHEMISTRY ORDERABLES Final Result Performing Organization Address [facility] Phone Number [address] [place] [address] * T4, FREE (THYROXINE) (10/24/2023 9:55 AM EDT) [facility] Free T4 1.20 0.80 - 1.80 ng/dL 10/24/2023 4:15 PM EDT [facility] [employer] Blood VENOUS BLOOD / Unknown Venipuncture / Unknown 10/24/2023 9:55 AM EDT 10/24/2023 9:55 AM EDT Narrative [facility] [employer] - 10/24/2023 4:15 PM EDT Ingestion of omar doses of biotin (>5 mg/day) taken within 8 hours of drawing blood sample can interfere with this immunoassay test. [employer] SURGERY NURSE CHEMISTRY ORDERABLES Final Result Performing Organization Address [facility] de Phone Number [facility] [address] , [place] [address] * TSH REFLEX (10/24/2023 9:55 AM EDT) [facility] TSH Reflex 4.180 0.270 - 4.200 mcIU/mL 10/24/2023 4:15 PM EDT [facility] [employer] Blood VENOUS BLOOD / Unknown Venipuncture / Unknown 10/24/2023 9:55 AM EDT 10/24/2023 9:55 AM EDT Narrative [facility] - 10/24/2023 4:15 PM EDT Ingestion of omar doses of biotin (>5 mg/day) taken within 8 hours of drawing blood sample can interfere with this immunoassay test. [employer] SURGERY NURSE CHEMISTRY ORDERABLES Final Result Performing Organization Address [facility] de Phone Number [facility] [employer] , [place] [address] * (ABNORMAL) LIPID PANEL REFLEX (10/24/2023 9:55 AM EDT) [facility] Cholesterol 155 <200 mg/dL 10/24/2023 4:15 PM EDT [facility] [employer] Comment: < 200 ?Desirable 200 - 239 ? Borderline High >= 240 ?High Triglyceride 231(H) <150 mg/dL 10/24/2023 4:15 PM EDT [facility], [employer] Comment: < 150 ? Normal 150 - 199 ?Borderline High 200 - 499 ?High ??>= 500 ? Very High HDL 42 >=40 mg/dL 10/24/2023 4:15 PM EDT [facility] [employer] Comment: ??> 60 ?Optimal 40 - 60 ?Acceptable ?? < 40 ?Low LDL Calculated 75 <100 mg/dL 10/24/2023 4:15 PM EDT [facility] [employer] Non-HDL-C Calculated 113 <=129 mg/dL 10/24/2023 4:15 PM EDT [facility] [employer] Comment: <130 ?Desirable 130-159 Above Desirable 160-189 Borderline High 190-219 High >= 220 ??Very High Fasting Specimen? Yes None 024 4:15 PM EDT [facility] Blood VENOUS BLOOD / Unknown Venipuncture / Unknown 10/24/2023 9:55 AM EDT 10/24/2023 9:55 AM EDT Juana Bailey APRN CHEMISTRY ORDERABLES Final Result [facility], [employer] [address] [facility] [address], [place] [address] [facility] [address] [place] [address] * (ABNORMAL) HEMOGLOBIN A1C (10/24/2023 9:55 AM EDT) Hgb A1C 6.1(H) 4.2 - 5.6 % 10/24/2023 4:28 PM EDT [facility] [employer] Est. Avg Glucose 128 mg/dL 10/24/2023 4:28 PM EDT [facility] [employer] Blood VENOUS BLOOD / Unknown Venipuncture / [...] level of glycemic control. ? Juana Bailey SURGERY NURSE CHEMISTRY ORDERABLES Final Result [facility] [address] [facility] , [place] [address] * COMPREHENSIVE METABOLIC PANEL (10/24/2023 9:55 AM [...] 10/24/2023 4:15 PM EDT [facility] [employer] Bili Total 0.3 0.2 - 1.3 mg/dL 10/24/2023 4:15 PM EDT [facility] [employer] ALT 20 <=41 U/L 10/24/2023 4:15 PM EDT [facility] [employer] AST 23 <=40 U/L 10/24/2023 4:15 PM EDT [facility] [employer] Alk Phos 83 36 - 123 U/L 10/24/2023 4:15 PM EDT [facility] [employer] eGFR (CKD-EPIcr 2020) 87 >=60 mL/min/1.7 3 m2 10/24/2023 4:15 PM EDT [facility] Comment:Estimated GFR was ca lculated using the CKD-EPIcr (2020) equation refit without race. The equation is recommended by the National Kidney Foundation - [place] [employer] of Nephrology Task Force. Blood VENOUS BLOOD / Unknown Venipuncture / Unknown 10/24/2023 9:55 AM EDT 10/24/2023 9:55 AM EDT Juana Bailey SURGERY NURSE CHEMISTRY ORDERABLES Final Result [facility], [employer] [address] [facility] , [address] [place] [id number] [facility] [address] [place] [address] * CBC WITH DIFF (10/24/2023 9:55 AM EDT) WBC 9.4 3.7 - 10.3 x10(3)/mcL 10/24/2023 4:04 PM EDT [facility] [employer] RBC 3.94 3.90 - 5.20 x10(6)/mcL 10/24/2023 4:04 PM EDT [facility] [employer] Hgb 12.6 11.2 - 15.7 g/dL 10/24/2023 4:04 PM EDT [facility] [employer] Hct 39.0 34.0 - 45.0 % 10/24/2023 4:04 PM EDT [facility] [employer] MCV 99.0 80.0 - 100.0 fL 10/24/2023 4:04 PM EDT [facility] [employer] MCH 32.0 26.0 - 34.0 pg 10/24/2023 4:04 PM EDT [facility] [employer] MCHC 32.3 30.7 - 35.5 g/dL 10/24/2023 4:04 PM EDT [facility] [employer] RDW 14.0 <=14.9 % 10/24/2023 4:04 PM EDT [facility] [employer] Platelet 204 155 - 369 x10(3)/mcL 10/24/2023 4:04 PM EDT [facility] [employer] MPV 11.1 8.8 - 12.5 fL 10/24/2023 4:04 PM EDT [facility] [employer] Neut Percent 53.4 % 10/24/2023 4:04 PM EDT [facility] [employer] Comment:Neutrophils equals s egs plus bands Imm Gran% 0.3 % 10/24/2023 4:04 PM EDT [facility] [employer] Comment:Automated count of m etamyelocytes, myelocytes and promyelocytes. Lymph Percent 33.9 % 10/24/2023 4:04 PM EDT [facility] Winkler Percent 8.6 % 10/24/2023 4:04 PM EDT [facility] [employer] Eos Percent 3.2 % 10/24/2023 4:04 PM EDT [facility] [employer] Baso Percent 0.6 % 10/24/2023 4:04 PM EDT [facility] Neut # 5.0 1.6 - 6.1 x10(3)/mcL 10/24/2023 4:04 PM EDT [facility] [employer] Comment:Neutrophils equals s egs plus bands IMMGRAN# 0.0 0.0 - 0.1 x10(3)/mcL 10/24/2023 4:04 PM EDT [facility] [employer] Comment:Automated count of m etamyelocytes, myelocytes and promyelocytes. An absolute IG <0.1 is reported as 0.0. Lymph # 3.2 1.2 - 3.9 x10(3)/mcL 10/24/2023 4:04 PM EDT [facility] Winkler # 0.8 0.3 - 0.9 x10(3)/mcL 10/24/2023 4:04 PM EDT [facility] Eos# 0.3 0.0 - 0.5 x10(3)/mcL 10/24/2023 4:04 PM EDT [facility] Baso # 0.1 0.0 - 0.1 x10(3)/mcL 10/24/2023 4:04 PM EDT [facility] Blood VENOUS BLOOD / Unknown Venipuncture / Unknown 10/24/2023 9:55 AM EDT 10/24/2023 9:55 AM EDT Juana Bailey APRN HEMATOLOGY ORDERABLES Final Result [facility], [employer] [address] [facility] , [place] [address] documented in this encounter Visit [...] mood documented in this encounter Care Teams Furnace Maintenance Relationship Specialty Start Date End Date Juana Bailey APRN [address] [place] [address] PCP - General Nurse Practitioner-Family 08/29/22 documented as of this encounter
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
--- OUTSIDE RECORDS SUMMARY | 2024-03-23 10:54 | XMS_ITS | Encounter Summary ---
Author Organization [place] [address] Care Team Providers Care Clay Transporter Name Role Phone Juana Bailey APRN Primary Care Provider [phone]- [phone] Reason for Visit * Reason Onset Date Comments Appointment Needed 12/13/2022 TB test Encounter Details Date Type Department Care Team (Late st Contact Info) Description 12/13/2022 Telephone [facility] [address] [place] [address] Juana Bailey APRN [address] [place] [address] Appointment Needed (TB test ) Social [...] EDT I had to put her on [employer] for Saturday 8:45, I'm working from [facility] that day. Ramon * Telephone Encounter - Sarah Crowell CCMA - 12/13/2022 4:06 PM EDT [...] EST Office Visit [facility] [address] [place] [address] Juana Bailey APRN [address] [facility] [place] [address] documented as of this encounter Goals Goal [...] on filedocumented in this encounter Care Teams Clay Transporter Relationship Specialty Start Date End Date Juana Bailey APRN [address] [facility] [place] [address] PCP - General Nurse Practitioner-Family 08/29/22 documented as of this encounter
--- OUTSIDE RECORDS SUMMARY | 2024-03-23 10:54 | XMS_ITS | Encounter Summary ---
Author Organization [place] [address] Care Team Providers Care Beam Builder Helper Name Role Phone Juana Bailey APRN Primary Care Provider [phone] Reason for Referral * GI Procedure (Routine) - Pending Review Specialty Diagnoses / Procedures Referred By Lynda t Referred To Contact General Surgery Diagnoses Special screening for malignant neoplasms, colon Screening for malignant neoplasm of the rectum Juana Bailey APRN [address] [place] [address] Phone: tel: fax: [facility] [address] [facility] [address] [place] [address] Phone: tel: fax: Referral ID Status Reason Start Date Expiration Date V isits Requested Visits Authorized [id number] Pending Review 05/10/2023 05/09/2024 1 1 Reason for Visit * Reason Onset Date Comments Central Order Completion Outreach 05/10/2023 Mammogram Encounter Details Date Type Department Care Team (Late st Contact Info) Description 05/10/2023 Patient Outreach [facility] [address] [place] [address] Juana Bailey APRN [address] [place] [id number] Central Order Completion Outreach (Mammogram) Social History [...] Date Recorded PHQ-2 Total Score 0 11/07/2022 [facility] [place] of Occupat ional Health - Occupational Stress [...] 05/15/23. Colonoscopy referral placed. Message routed to [facility] to assist with scheduling. Has the patient ever had a colonoscopy? no Family hx of colon cancer or polyps? no If so who and what age: Preferred date, time, and physician for procedure: Has the patient been fully vaccinated for COVID?No Preferred time for COVID test: Does the patient have kidney disease? Yes, CKD Pharmacy preference:[facility] Medications: Prior to Admission [...] times daily. Once daily Provider, Historical b zuteize-V-lrhag acid (NEPHROCAP) 1 mg Oral Capsule Take [...] BY MOUTH 2 TIMES A DAY 11/21/22 Juana Bailey APRN nicotine polacrilex (COMMIT) 2 mg [...] every [address]. [address] Zelaya Provider, Historical semaglutide (OZEMPIC) 1 mg/dose (4 [...] Outcome:: Left Voicemail to Return Call at [phone], [employer] Message documented in this encounter Miscellaneous Notes [...] EST Office Visit [facility] [place] [facility] [address] [place] [phone] Juana Bailey APRN [address] [facility] [place] [address] Scheduled Referrals Name Type Priority Associated Diagnoses [...] rectum documented in this encounter Care Teams Beam Builder Helper Relationship Specialty Start Date End Date Juana Bailey APRN [address] [facility] [place] [address] PCP - General Nurse Practitioner-Family 08/29/22 documented as of this encounter
--- OUTSIDE RECORDS SUMMARY | 2024-03-23 10:54 | XMS_ITS | Encounter Summary ---
Author Organization [place] [address] Care Team Providers Care Gettering Operator Name Role Phone Juana Bailey APRN Primary Care Provider [phone]- [phone] Reason for Visit * Reason Comments Nicotine Dependence For dip Encounter Details Date Type Department Care Team (Late st Contact Info) Description 04/25/2023 2:15 PM EST Office Visit [facility] [address] [place] [phone] Juana Bailey APRN [address] [place], [place] [id number] Chewing tobacco nicotine dependence without complication (Primary [...] 0 11/07/2022 [facility] [place] of Occupat ional Health - Occupational Stress [...] days. Dispense: 96 Lozenge; Refill: 1 - DC TOBACCO USE CESSATION INTERMEDIATE 3-10 MINUTES Discussed [...] PM EST Office Visit ASHELY PATEL [address] [place] [phone] Juana Bailey APRN [address] [facility] [place] [address] Scheduled Orders Name Type Priority Associated Diagnoses Orde r Schedule DC TOBACCO USE CESSATION INTERMEDIATE 3-10 MINUTES DC Charge Routine Chewing tobacco nicotine dependence without [...] disorder documented in this encounter Care Teams Gettering Operator Relationship Specialty Start Date End Date Juana Bailey APRN [address] [place], [place] [address] PCP - General Nurse Practitioner-Family 08/29/22 documented as of this encounter
--- OUTSIDE RECORDS SUMMARY | 2024-03-23 10:54 | XMS_ITS | Encounter Summary ---
Author Organization [facility] [place] [address] Care Team Providers Care Sales Coach Name Role Phone Juana Bailey APRN Primary Care Provider [phone]- [phone] Reason for Visit * Reason Onset Date Comments Other 02/08/2023 Encounter Details Date Type Department Care Team (Late st Contact Info) Description 02/08/2023 Telephone [facility] [address] [place] [address] Juana Bailey APRN [address] [place] [address] Other Social History Tobacco Use Types [...] Recorded PHQ-2 Total Score 0 11/07/2022 [facility] of Occupat ional Health - Occupational Stress [...] PM EST Office Visit ASHELY PATEL [address] [place] [address] Juana Bailey APRN [address] [place] [address] documented as of this encounter Goals Goal [...] on filedocumented in this encounter Care Teams Sales Coach Relationship Specialty Start Date End Date Juana Bailey APRN [address] [place] [address] PCP - General Nurse Practitioner-Family 08/29/22 documented as of this encounter
--- OUTSIDE RECORDS SUMMARY | 2024-03-23 10:54 | XMS_ITS | Encounter Summary ---
Author Organization [facility] [place] [address] Care Team Providers Care Grave Cleaner Name Role Phone Juana Bailey APRN Primary Care Provider +1- [phone] Reason for Visit * Reason Onset Date Comments Colonoscopy 05/17/2023 Encounter Details Date Type Department Care Team (Late st Contact Info) Description 05/17/2023 Telephone [facility] [address] [facility] [address] [place] [address] Nitin Morgan MD [address] [place] [address] Colonoscopy Social History Tobacco Use Types Packs/Day [...] Score 0 11/07/2022 [facility] [place] of Occupat ional Health - Occupational Stress [...] colon, had her scheduled for 07/10/23 at [facility]. Pt stated she can't drink the colyte. Advised pt that d/t CKD and her ins, colyte was the only one we can use. Pt stated that she won't have the colon then. documented in this encounter Plan of Treatment Upcoming Encounters Date Type Department Care Team (Late st Contact Info) Description 05/07/2024 1:00 PM EST Office Visit [facility] [address] [phone] Juana Bailey APRN [address] [facility] [place] [address] documented as of this encounter Goals Goal [...] on filedocumented in this encounter Care Teams Grave Cleaner Relationship Specialty Start Date End Date Juana Bailey APRN [address] [place] [address] PCP - General Nurse Practitioner-Family 08/29/22 documented as of this encounter
--- OUTSIDE RECORDS SUMMARY | 2024-03-23 10:54 | XMS_ITS | Encounter Summary ---
Author Organization [place] [address] Care Team Providers Care Form Grader Name Role Phone Juana Bailey APRN Primary Care Provider +1- [phone] Reason for Visit * Reason Comments Medication Refill Encounter Details Date Type Department Care Team (Late st Contact Info) Description 12/18/2022 Refill [facility] [address] [place] [phone] Juana Bailey APRN [address] [place] [address] Medication Refill Social History Tobacco Use Types [...] PM EST Office Visit [facility]HELY PATEL [address] [place] [phone] Juana Bailey APRN [address] [place] [address] documented as of this encounter Goals Goal [...] documented as of this encounter Care Teams Form Grader Relationship Specialty Start Date End Date Juana Bailey APRN [address] [place], [place] [address] PCP - General Nurse Practitioner-Family 08/29/22 documented as of this encounter
--- OUTSIDE RECORDS SUMMARY | 2024-03-23 10:54 | XMS_ITS | Encounter Summary ---
Author Organization [place] [address] Care Team Providers Care Counseling Program Leader Name Role Phone Juana Bailey APRN Primary Care Provider +1- [phone] Reason for Visit * Reason Comments Medication Refill Encounter Details Date Type Department Care Team (Late st Contact Info) Description 01/07/2023 Refill [facility] [address] [phone] Juana Bailey APRN [address] [place] [address] Medication Refill Social History Tobacco Use Types [...] EST Office Visit [facility] [place] [facility] [address] [place] [phone] Juana Bailey, SUB ARC OPERATOR [address] [place] [address] documented as of this encounter Goals Goal Patient Goal Type Associated Problems Recent Progress Patient-Stated? Author Blood Pressure < 140/90 Blood Pressure 112/70(2023 8:24 AM EDT) No uJana Bailey APRN Maintain a healthy diet, exercise [...] documented as of this encounter Care Teams Counseling Program Leader Relationship Specialty Start Date End Date Juana Bailey APRN [address] [place] [address] PCP - General Nurse Practitioner-Family 08/29/22 documented as of this encounter
--- OUTSIDE RECORDS SUMMARY | 2024-03-23 10:54 | XMS_ITS | Encounter Summary ---
Author Organization [place] [address] Care Team Providers Care Toll Service Observer Name Role Phone Juana Bailey APRN Primary Care Provider +1- [phone] Reason for Visit * Reason Comments Medication Refill Encounter Details Date Type Department Care Team (Late st Contact Info) Description 04/23/2023 Refill [facility] [address] [place] [address] Juana Bailey APRN [...] Date Recorded PHQ-2 Total Score 0 11/07/2022 [facility] [place] of Occupat ional Health - Occupational Stress [...] MOUTH 2 TIMES A DAY 60 Tablet 04/23/2023 05/20/2023 documented in this encounter Plan of Treatment Upcoming Encounters Date Type Department Care Team (Late st Contact Info) Description 05/07/2024 1:00 PM EST Office Visit [facility]HELY PAT[facility] [address] [place] [address] Juana Bailey APRN [address] [facility] [place] [address] documented as of this encounter Goals Goal [...] TABLET BY MOUTH 2 TIMES A DAY 03/19/2023 04/23/2023 documented as of this encounter Care Teams Toll Service Observer Relationship Specialty Start Date End Date Juana Bailey APRN [address] [place], [place] [address] PCP - General Nurse Practitioner-Family 08/29/22 documented as of this encounter
--- OUTSIDE RECORDS SUMMARY | 2024-03-23 10:54 | XMS_ITS | Encounter Summary ---
Author Organization [facility] [place] [address] Care Team Providers Care Bow Tacker Name Role Phone Juana Bailey APRN Primary Care Provider +1- [phone] Reason for Visit * Reason Comments Medication Refill Encounter Details Date Type Department Care Team (Late st Contact Info) Description 04/10/2023 Refill [facility] [address] [place] [phone] Juana Bailey APRN [address] [place], [place] [id number] Medication Refill Social History Tobacco Use Types [...] Score 0 11/07/2022 [facility] [place] of Occupat ional Health - Occupational Stress [...] PM EST Office Visit ASHELY PATEL [address] [place] [phone] Juana Bailey APRN [address] [facility] [place] [address] documented as of this encounter Goals Goal [...] documented as of this encounter Care Teams Bow Tacker Relationship Specialty Start Date End Date Juana Bailey APRN [address] [place] [address] PCP - General Nurse Practitioner-Family 08/29/22 documented as of this encounter
--- OUTSIDE RECORDS SUMMARY | 2024-03-23 10:54 | XMS_ITS | Encounter Summary ---
Author Organization [place] [address] Care Team Providers Care Animal Handler Name Role Phone Juana Bailey APRN Primary Care Provider +1 [phone] Reason for Visit * Reason Onset Date Comments Care Transition 12/14/2022 CM- Telephonic Outreach 12/14/2022 Encounter Details Date Type Department Care Team (Late st Contact Info) Description 12/14/2022 Patient Outreach [facility] [address] [place] [address] Cristina Portillo, biologics specialist; CM- Telephonic Outreach Social History Tobacco Use [...] needs scheduled for PPD testing. 12/18/22. Office Induction Furnace Operator (OCC) not available, scheduled her provider to [...] EST Office Visit [facility] [address] [phone] Juana Bailey APRN [address] [place] [address] documented as of this encounter Goals Goal [...] tuberculosis documented in this encounter Care Teams Animal Handler Relationship Specialty Start Date End Date Juana Bailey APRN [address] [place] [address] PCP - General Nurse Practitioner-Family 08/29/22 documented as of this encounter
--- OUTSIDE RECORDS SUMMARY | 2024-03-23 10:54 | XMS_ITS | Encounter Summary ---
Author Organization [facility] [place] [address] Care Team Providers Care Education Coordinator Name Role Phone Juana Bailey APRN Primary Care Provider +1 [phone] Encounter Details Date Type Department Care Team (Late st Contact Info) Description 04/02/2023 Orders Only [facility] [address] [place] [address] Sarah Crowell, [facility] Social History Tobacco Use Types Packs/Day Years [...] Date Recorded PHQ-2 Total Score 0 11/07/2022 [facility] [place] of Occupat ional Health - Occupational Stress [...] PM EST Office Visit [facility]HELY [place] [address] [phone] Juana Bailey APRN [address] [place] [address] documented as of this encounter Goals Goal [...] on filedocumented in this encounter Care Teams Education Coordinator Relationship Specialty Start Date End Date Juana Bailey APRN [address] [facility] [place] [address] PCP - General Nurse Practitioner-Family 08/29/22 documented as of this encounter
--- OUTSIDE RECORDS SUMMARY | 2024-03-23 10:54 | XMS_ITS | Encounter Summary ---
Author Organization [facility] [place] [address] Care Team Providers Care Reading Assistant Name Role Phone Juana Bailey APRN Primary Care Provider +1- [phone] Reason for Visit * Reason Comments Medication Refill Encounter Details Date Type Department Care Team (Late st Contact Info) Description 04/10/2023 Refill [facility] [address] [place] [phone] Juana Bailey APRN [address] [place], [place] [id number] Medication Refill Social History Tobacco Use Types [...] Date Recorded PHQ-2 Total Score 0 11/07/2022 [facility] [place] of Occupat ional Health - Occupational Stress [...] PM EST Office Visit ASHELY PATEL [address] [place] [address] Juana Bailey APRN [address] [place] [address] documented as of this encounter Goals Goal [...] documented as of this encounter Care Teams Reading Assistant Relationship Specialty Start Date End Date Juana Bailey APRN [address] [place], [place] [address] PCP - General Nurse Practitioner-Family 08/29/22 documented as of this encounter
--- OUTSIDE RECORDS SUMMARY | 2024-03-23 10:54 | XMS_ITS | Encounter Summary ---
Author Organization [place] [address] Care Team Providers Care Manager Radio Name Role Phone Juana Bailey APRN Primary Care Provider [phone]- [phone] Reason for Visit * Reason Comments Medication Refill Encounter Details Date Type Department Care Team (Late st Contact Info) Description 02/04/2023 Refill [facility] [address] [place] [phone] Juana Bailey APRN [address] [place] [address] Medication Refill Social History Tobacco Use Types [...] Medication refill request deferred to office staff. agricultural education instructor Reason: Medication noted as not taking Ergocalciferol Medication Refill Protocol not available for this medication. Routed to office staff. Hctz Medication refill request deferred to office staff. agricultural education instructor Reason: Medication noted as not taking Loratadine Medication Refill Protocol not available for this medication. Routed to office staff. Trazodone Medication Refill Protocol not available for this medication. Routed to office staff. documented in this encounter Plan of Treatment Upcoming Encounters Date Type Department Care Team (Late st Contact Info) Description 05/07/2024 1:00 PM EST Office Visit ASHELY PATEL [address] [place] [address] PeeblesJuana lemon APRN [address] [facility] [place] [address] documented as of this encounter Goals Goal Patient Goal Type Associated Problems Recent Progress Patient-Stated? Author Blood Pressure < 140/90 Blood Pressure 112/70(2023 8:24 AM EDT) No PeeblesArnoldoJuana, OPHTHALMIC TECHNICIAN APPRENTICE Maintain a healthy diet, exercise regularly and maintain an ideal body weight General No Noelle Yeh RMA BMI (Calculated) < 30 General 38.7(10/24/19 9:24 AM EDT) No LynnArnoldoJuana, OPHTHALMIC TECHNICIAN APPRENTICE Stay Tobacco Free Lifestyle No LynnArnoldoJuana, OPHTHALMIC TECHNICIAN APPRENTICE HEMOGLOBIN A1C < 7.0 Result Component 6.1( 9:55 AM EDT) No PeeblesJuana, OPHTHALMIC TECHNICIAN APPRENTICE documented as of this encounter Visit Diagnoses [...] as of this encounter Care Teams Manager Radio Relationship Specialty Start Date End Date Juana Bailey APRN [address] [place] [address] PCP - General Nurse Practitioner-Family 08/29/22 documented as of this encounter
--- OUTSIDE RECORDS SUMMARY | 2024-03-23 10:54 | XMS_ITS | Encounter Summary ---
Author Organization [place] [address] Care Team Providers Care Farm Manager Name Role Phone Juana Bailey APRN Primary Care Provider +1- [phone] Reason for Visit * Reason Comments Medication Question How long should she stay on 0.5? Has been on this dose for 2 months Anxiety left after 2 4 yrs Encounter Details Date Type Department Care Team (Latest Contact Info) Description 03/21/2023 8:00 AM EST Office Visit [facility] [place] [address] [place] [address] Juana Bailey APRN [address] [place] [address] Type 2 diabetes mellitus with hyperlipidemia (HCC) [...] Date Recorded PHQ-2 Total Score 0 11/07/2022 [place] of Occupat ional Health - Occupational Stress [...] this encounter Progress Notes * Juana Bailey RECORDING STUDIO INTERNSHIP - 03/21/2023 8:00 AM EST Assessment Diagnoses and all orders for this visit: Type 2 diabetes mellitus with hyperlipidemia (HCC) (HCC) (Chronic) Overview: Lab Results Component Value [...] EST Office Visit [facility] [address] [place] [address] Juana Bailey APRN [address] [facility] [place] [address] documented as of this encounter Goals Goal Patient Goal Type Associated Problems Recent Progress Patient-Stated? Author Blood Pressure < 140/90 Blood Pressure 112/70(2023 8:24 AM EDT) No LynnJuana, ZAHRA Maintain a healthy diet, exercise regularly and maintain an ideal body weight General No Noelle Yeh RMA BMI (Calculated) < 30 General 38.7(10/24/19 24 9:24 AM EDT) No LynnJuana, RECORDING STUDIO INTERNSHIP Stay Tobacco Free Lifestyle No Juana Bailey, RECORDING STUDIO INTERNSHIP HEMOGLOBIN A1C < 7.0 Result Component 6.1( [...] 5.7 mg/dL 03/21/2023 3:26 PM EST [facility]REF[facility] [employer] Blood VENOUS BLOOD / Unknown Venipuncture / Unknown 03/21/2023 8:31 AM EST 03/21/2023 8:31 AM EST [facility] Lynn RECORDING STUDIO INTERNSHIP CHEMISTRY ORDERABLES Final Result Performing Organization Address [facility] Co de Phone Number [facility] [employer] [facility] [address] [facility] , [address] [place] [phone] * (ABNORMAL) HEMOGLOBIN A1C (03/21/2023 8:31 AM EST) Pathologist [facility] Hgb A1C 6.9(H) 4.2 - 5.6 % 03/21/2023 2:38 PM EST PREF[facility]ED [employer] Est. Avg Glucose 151 mg/dL 03/21/2023 2:38 PM EST [facility] [employer] Blood VENOUS BLOOD / Unknown Venipuncture / Unknown 03/21/2023 8:31 AM EST 03/21/2023 8:31 AM EST Narrative [facility] - 03/21/2023 2:38 PM EST REFERENCE RANGE: Normal: 4.0-5.6% Pre-diabetes: 5.7-6.4% Provisional diagnosis of diabetes: >6.4% Hgb F>10% and anything which shortens red cell survival, such as hemolytic anemia, or unstable hemoglobin variants such as HbSS, HbSC, or HbCC, will lower the HbA1c value associated with a given level of glycemic control. ? Juana Bailey APRN CHEMISTRY ORDERABLES Final Result Performing Organization Address [facility] de Phone Number [employer] [facility] [address] [facility] , [place] [address] * (ABNORMAL) LIPID PANEL REFLEX (03/21/2023 8:31 AM EST) Pathologist [facility] Cholesterol 203(H) <200 mg/dL 03/21/2023 3:26 PM EST [facility] Comment: < 200 ?Desirable 200 - 239 ? Borderline High >= 240 ?High Triglyceride 182(H) <150 mg/dL 03/21/2023 3:26 PM EST [facility] Comment: < 150 ? Normal 150 - 199 ?Borderline High 200 - 499 ?High ??>= 500 ? Very High HDL 44 >=40 mg/dL 03/21/2023 3:26 PM EST [facility] Comment: ??> 60 ?Optimal 40 - 60 ?Acceptable ?? < 40 ?Low LDL Calculated 127(H) <100 mg/dL 03/21/2023 3:26 PM EST [facility] Non-HDL-C Calculated 159(H) <=129 mg/dL 03/21/2023 3:26 PM EST [facility] Comment: <130 ?Desirable 130-159 Above Desirable 160-189 Borderline High 190-219 High >= 220 ??Very High Fasting Specimen? Yes None 023 3:26 PM EST [facility] Blood VENOUS BLOOD / Unknown Venipuncture / Unknown 03/21/2023 8:31 AM EST 03/21/2023 8:31 AM EST Juana Bailey APRN CHEMISTRY ORDERABLES Final Result Performing Organization Address [facility] Co de Phone Number [facility] [address] [facility] , [place] [address] [facility] [address] [place] [address] * (ABNORMAL) COMPREHENSIVE METABOLIC PANEL (03/21/2023 8:31 AM EST) Sodium 136 136 - 145 mmol/L 03/21/2023 3:26 PM EST [facility] Potassium 3.2(L) 3.5 - 5.0 mmol/L 03/21/2023 3:26 PM EST [facility] Chloride 96(L) 98 - 107 mmol/L 03/21/2023 [...] 03/21/2023 3:26 PM EST [facility] eGFR (CKD-EPIcr 2020) 65 >=60 mL/min/1.7 3 m2 03/21/2023 3:26 PM EST [facility] Comment:Estimated GFR was ca lculated using the CKD-EPIcr (2020) equation refit without race. The equation is recommended by the National Kidney Foundation - [place] [employer] of Nephrology Task Force. Blood VENOUS BLOOD / Unknown Venipuncture / Unknown 03/21/2023 8:31 AM EST 03/21/2023 8:31 AM EST us Juana Bailey APRN CHEMISTRY ORDERABLES Final Result [facility] [address] [facility] [address] [place] [address] [facility] [address] [place] [address] documented in this encounter Visit [...] documented as of this encounter Care Teams Farm Manager Relationship Specialty Start Date End Date Juana Bailey [place] [address] [place] [address] PCP - General Nurse Practitioner-Family 08/29/22 documented as of this encounter
--- OUTSIDE RECORDS SUMMARY | 2024-03-23 10:54 | XMS_ITS | Encounter Summary ---
Author Organization [place] [address] Care Team Providers Care Info Analyst Name Role Phone Juana Bailey APRN Primary Care Provider [phone]- [phone] Reason for Visit * Reason Comments Diabetes Encounter Details Date Type Department Care Team (Latest Contact Info) Description 02/20/2023 8:15 AM EST Office Visit [facility] [place] [address] [place] [phone] Juana Bailey APRN [address] [place] [address] Obesity, Class III, BMI 40-49.9 (morbid obesity) [...] vaginally every other day. 30 g 3 semaglutide (OZEMPIC) 0.25 mg or 0.5 [...] PM EST Office Visit ASHELY PATEL [address] [place] [phone] Juana Bailey APRN [address] [facility] [place] [address] documented as of this encounter Goals Goal [...] 4 added in this encounter Care Teams Info Analyst Relationship Specialty Start Date End Date Juana Bailey APRN [address] [place], [place] [address] PCP - General Nurse Practitioner-Family 08/29/22 documented as of this encounter
--- OUTSIDE RECORDS SUMMARY | 2024-03-23 10:54 | XMS_ITS | Encounter Summary ---
Author Organization [place] [address] Care Team Providers Care Nurse Charge Rn Name Role Phone Juana Bailey APRN Primary Care Provider [phone] Reason for Referral * Medication Prior Authorization - Authorized Specialty Diagnoses / Procedures Referred By Lynda t Referred To Contact Diagnoses Type 2 diabetes mellitus with hyperlipidemia (HCC) Juana Bailey APRN [address] [address] Phone: tel: fax: Referral ID Status Reason Start Date Expiration Date V isits Requested Visits Authorized [id number] Authorized 01/03/2023 01/03/2024 1 1 Reason for [...] Info) Description 01/03/2023 Telephone ASHE[facility] [place] [address] [place] [address] LynnJuana, DIVISION ROADMASTER [address] [place] [address] Medication Management (tirzepatide (MOUNJARO) 2.5 mg/0.5 mL [...] GLP-1 agonist [drug in the same group]: Byallyn, Ozmichael, Victoza.Your doctor told us that you have [...] EST Office Visit [facility] [place] [facility] [address] [phone] Juana Bailey APRN [address] [place] [address] documented as of this encounter Goals Goal [...] documented as of this encounter Care Teams Nurse Charge Rn Relationship Specialty Start Date End Date Juana Bailey [place] [address] [place] [address] PCP - General Nurse Practitioner-Family 08/29/22 documented as of this encounter
--- OUTSIDE RECORDS SUMMARY | 2024-03-23 10:54 | XMS_ITS | Encounter Summary ---
Author Organization [place] [address] Care Team Providers Care Pin Setter Name Role Phone Juana Bailey APRN Primary Care Provider [phone] [phone] Reason for Visit * Reason Comments Care Transition Care Management - Face To Face CM-PPD Placement Encounter Details Date Type Department Care Team (Late st Contact Info) Description 12/18/2022 8:45 AM EDT Office Visit [facility] [address] [place] [address] Cristina Portillo, RN Screening for tuberculosis (Primary Dx) Social [...] steps: Patient will follow up with office customer care associate on 12/20/22 at 0845 documented in this encounter Plan of Treatment Upcoming Encounters Date Type Department Care Team (Late st Contact Info) Description 05/07/2024 1:00 PM EST Office Visit ASHELY PATEL [address] [place] [phone] Juana Bailey APRN [address] [place] [address] documented as of this encounter Goals Goal [...] 12/18/2022 documented in this encounter Care Teams Pin Setter Relationship Specialty Start Date End Date Juana Bailey APRN [address] [place] [address] PCP - General Nurse Practitioner-Family 08/29/22 documented as of this encounter
--- OUTSIDE RECORDS SUMMARY | 2024-03-23 10:54 | XMS_ITS | Encounter Summary ---
Author Organization [place] [address] Care Team Providers Care Aerial Gunner Name Role Phone Juana Bailey APRN Primary Care Provider [phone] [phone] Reason for Visit * Reason Comments Care Transition Care Management - Face To Face CM-PPD Reading Encounter Details Date Type Department Care Team (Late st Contact Info) Description 12/20/2022 8:45 AM EDT Office Visit [facility] [address] [place] [address] Cristina Portillo, RN PPD screening test (Primary Dx) Social [...] 2:28 PM EDT Adlen Crowell CCMA * Does this person have [...] 8:45 AM EDT Patient presented to office pet care technician for Purified Protein Derivative (PPD) read. Initial PPD placed on 12/18/2022, at 0845. Patient is within timeframe presenting today at 0845. Results: 0 mm induration. Results entered in [employer]. Patient received completed paperwork indicating result. documented in this encounter Plan of Treatment Upcoming Encounters Date Type Department Care Team (Late st Contact Info) Description 05/07/2024 1:00 PM EST Office Visit [facility]HELY PATEL [address] [place] [phone] Juana Bailey APRN [address] [place] [address] documented as of this encounter Goals Goal [...] tuberculosis documented in this encounter Care Teams Aerial Gunner Relationship Specialty Start Date End Date Juana Bailey APRN [address] [place] [address] PCP - General Nurse Practitioner-Family 08/29/22 documented as of this encounter
--- OUTSIDE RECORDS SUMMARY | 2024-03-23 10:54 | XMS_ITS | Encounter Summary ---
Author Organization [place] [address] Care Team Providers Care Jet Inspector Name Role Phone Juana Bailey APRN Primary Care Provider +1- [phone] Reason for Visit * Reason Comments Obesity Discuss options, wan ting shot Encounter Details Date Type Department Care Team (Latest Contact Info) Description 12/20/2022 9:30 AM EDT Office Visit [facility] [place] [address] [place] [phone] Juana Bailey APRN [address] [place] [address] Type 2 diabetes mellitus with hyperlipidemia (HCC) [...] a week for 28 days. 2 mL 01/04/20 23 tirzepatide (MOUNJARO) 5 mg/0.5 mL SubQ Pen InjectorIndications :Type 2 diabetes mellitus with hyperlipidemia (HCC) Subcutaneous (Inject under the skin) 5 mg once a week for 28 days. 2 mL 3 01/04/20 tirzepatide (MOUNJARO) 2.5 mg/0.5 mL SubQ Pen InjectorIndications :Type 2 diabetes mellitus with hyperlipidemia (HCC) Subcutaneous (Inject under the skin) 2.5 mg once a week. 2 mL 3 01/04/20 23 documented in this encounter Progress Notes * [...] PM EST Office Visit ASHELY [facility] [address] [place] [phone] Juana Bailey APRN [address] [place] [address] documented as of this encounter Goals Goal [...] 2022 documented in this encounter Care Teams Jet Inspector Relationship Specialty Start Date End Date Juana Bailey APRN [address] [place] [address] PCP - General Nurse Practitioner-Family 08/29/22 documented as of this encounter
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
--- OUTSIDE RECORDS SUMMARY | 2024-03-23 10:54 | XMS_ITS | Encounter Summary ---
Author Organization [place] [place] [address] Care Team Providers Care Entry Level Name Role Phone Juana Bailey APRN Primary Care Provider +1- [phone] Reason for Visit * Reason Comments Medication Refill Encounter Details Date Type Department Care Team (Late st Contact Info) Description 03/19/2023 Refill [facility] [address] [place] [phone] Juana Bailey APRN [address] [place], [place] [id number] Medication Refill Social History Tobacco Use Types [...] Total Score 0 11/07/2022 [facility] [place] of Occupat ional Health - Occupational Stress [...] 2:28 PM EDT Alden Crwoell CCMA documented as of this encounter Mental [...] PM EST Office Visit ASHELY PATEL [address] [place] [phone] Juana Bailey APRN [address] [facility] [place] [address] documented as of this encounter Goals Goal [...] of this encounter Care Teams Entry Level Relationship Specialty Start Date End Date Juana Bailey APRN [address] [place] [address] PCP - General Nurse Practitioner-Family 08/29/22 documented as of this encounter
--- OUTSIDE RECORDS SUMMARY | 2024-03-23 10:54 | XMS_ITS | Encounter Summary ---
Author Organization [place] [address] Care Team Providers Care Automotive Electrician Helper Name Role Phone Juana Bailey APRN Primary Care Provider +1- [phone] Reason for Visit * Reason Comments Medication Question Discuss semaglutide Encounter Details Date Type Department Care Team (Latest Contact Info) Description 01/17/2023 2:15 PM EDT Office Visit ASHE[facility] [place] [address] [place] [address] Juana Bailey APRN [address] [place] [address] Type 2 diabetes mellitus with hyperlipidemia [...] Progress Notes * Juana Bailey APRN - 01/17/2023 2:15 PM EDT Assessment Diagnoses [...] EST Office Visit [facility] [place] [facility] [address] [place] [address] Juana Bailey APRN [address] [place] [address] documented as of this encounter Goals Goal [...] Primary documented in this encounter Care Teams Automotive Electrician Helper Relationship Specialty Start Date End Date Juana Bailey APRN [address] [facility] [place] [address] PCP - General Nurse Practitioner-Family 08/29/22 documented as of this encounter
--- OUTSIDE RECORDS SUMMARY | 2024-03-23 10:54 | XMS_ITS | Encounter Summary ---
Author Organization [place] [address] Care Team Providers Care Protective Services Social Worker Name Role Phone Juana Bailey APRN Primary Care Provider +1- [phone] Reason for Visit * Reason Comments Medication Refill Encounter Details Date Type Department Care Team (Late st Contact Info) Description 12/03/2022 Refill [facility] [address] [place] [phone] Juana Bailey APRN [address] [place] [address] Medication Refill Social History Tobacco Use Types [...] PM EST Office Visit ASHELY PATEL [address] [place] [phone] Juana Bailey APRN [address] [facility] [place] [address] documented as of this encounter Goals Goal [...] documented as of this encounter Care Teams Protective Services Social Worker Relationship Specialty Start Date End Date Juana Bailey APRN [address] [place], [place] [address] PCP - General Nurse Practitioner-Family 08/29/22 documented as of this encounter
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
--- OUTSIDE RECORDS SUMMARY | 2024-03-23 10:54 | XMS_ITS | Encounter Summary ---
Author Organization [facility] [place] [address] Care Team Providers Care Plating And Point Assembly Supervisor Name Role Phone Juana Bailey APRN Primary Care Provider +1- [phone] Reason for Visit * Reason Comments Medication Refill Encounter Details Date Type Department Care Team (Late st Contact Info) Description 03/06/2023 Refill [facility] [address] [place] [phone] Juana Bailey APRN [address] [place] [address] Medication Refill Social History Tobacco Use [...] Date Recorded PHQ-2 Total Score 0 11/07/2022 [facility] [place] of Occupat ional Health - Occupational Stress [...] EST Allopurinol 300- Medication Refill Protocol passed. [facility] Action: Approved 90 day supply with sufficient refills to noted follow-up date by provider or protocol if no follow-up date noted, not to exceed 90 days past that date. Loratadine- Medication Refill Protocol not available for this medication. Routed to office staff. Hctz 25- Medication Refill Protocol passed. overnight stocker Action: Approved 90 day supply with sufficient refills to noted follow-up date by provider or protocol if no follow-up date noted, not to exceed 90 days past that date. Trazodone- Medication Refill Protocol not available for this medication. Routed to office staff. Vitamin d2- Medication Refill Protocol not available for this medication. Routed to office staff. Farxiga 10- Medication Refill Protocol passed. overnight stocker Action: Approved 90 day supply with sufficient refills to noted follow-up date by provider or protocol if no follow-up date noted, not to exceed 90 days past that date. documented in this encounter Plan of Treatment Upcoming Encounters Date Type Department Care Team (Late st Contact Info) Description 05/07/2024 1:00 PM EST Office Visit ASHELY PATEL [address] [place] [address] Juana Bailey APRN [address] [place] [address] documented as of this encounter Goals Goal [...] Coronary atherosclerosis of unspecified type of vessel, [place] or graft documented in this encounter Discontinued [...] documented as of this encounter Care Teams Plating And Point Assembly Supervisor Relationship Specialty Start Date End Date Juana Bailey APRN [address] [place], [place] [address] PCP - General Nurse Practitioner-Family 08/29/22 documented as of this encounter
--- OUTSIDE RECORDS SUMMARY | 2024-03-23 10:54 | XMS_ITS | Encounter Summary ---
Author Organization [place] [address] Care Team Providers Care Remotely Piloted Vehicle Controller Name Role Phone Juana Bailey APRN Primary Care Provider +1- [phone] Reason for Visit * Reason Comments Medication Refill Encounter Details Date Type Department Care Team (Late st Contact Info) Description 12/10/2022 Refill [facility] [address] [place] [phone] Juana Bailey APRN [address] [place] [address] Medication Refill Social History Tobacco Use Types [...] EST Office Visit [facility] [place] [facility] [address] [place] [phone] Juana Bailey APRN [address] [place] [address] documented as of this encounter Goals Goal [...] documented as of this encounter Care Teams Remotely Piloted Vehicle Controller Relationship Specialty Start Date End Date Juana Bailey APRN [address] [place] [address] PCP - General Nurse Practitioner-Family 08/29/22 documented as of this encounter
--- OUTSIDE RECORDS SUMMARY | 2024-03-23 10:55 | XMS_ITS | Encounter Summary ---
Author Organization [place] [address] Care Team Providers Care Statistics Manager Name Role Phone Juana Bailey APRN Primary Care Provider +1- [phone] Reason for Visit * Reason Onset Date Comments Care Transition 10/26/2022 CM- Telephonic Outreach 10/26/2022 CM-Resource Coordination 10/26/2022 Encounter Details Date Type Department Care Team (Latest Contact Info) Description 10/26/2022 Patient Outreach [facility] [address] [place] [address] Cristina Portillo RNair pollution compliance inspector; CM- Telephonic Outreach; CM-Resource Coordination Social History [...] not included. Assessment: Patient referred to Office County Court Judge (OCC) by provider to assist with incontence [...] end of October 2022 (pt-stated) Next Steps: County Court Judge will not follow at this time. documented in this encounter Plan of Treatment Upcoming Encounters Date Type Department Care Team (Late st Contact Info) Description 05/07/2024 1:00 PM EST Office Visit [facility] [address] [place] [address] Juana Bailey APRN [address] [facility] [place] [address] documented as of this encounter Goals Goal [...] Primary documented in this encounter Care Teams Statistics Manager Relationship Specialty Start Date End Date Juana Bailey APRN [address] [place] [address] PCP - General Nurse Practitioner-Family 08/29/22 documented as of this encounter
--- OUTSIDE RECORDS SUMMARY | 2024-03-23 10:55 | XMS_ITS | Encounter Summary ---
Author Organization [facility] Address [facility] [place] [address] Care Team Providers Care Studio Associate Name Role Phone Unavailable Primary Care Provider Unavailabl e Encounter Details Date Type Department Care Team (Late st Contact Info) Description 07/19/1999 11:07 AM EDT - 08/22/1999 11:59 PM EDT Hospital Encounter [facility] [place] [facility] [address] [facility] [place] [address] Social History Tobacco Use Types Packs/Day [...] EST Office Visit [facility] [address] [place] [phone] Juana Bailey, COLLAR PADDER BLINDSTITCH [address] [place] [address] documented as of this encounter Visit Diagnoses Not on filedocumented in this encounter
--- OUTSIDE RECORDS SUMMARY | 2024-03-23 10:55 | XMS_ITS | Encounter Summary ---
Author Organization [place] [address] Care Team Providers Care Narcotics Detective Name Role Phone Juana Bailey APRN Primary Care Provider +1- [phone] Reason for Visit * Reason Comments Medication Refill Encounter Details Date Type Department Care Team (Late st Contact Info) Description 11/20/2022 Refill [facility] [address] [place] [phone] Juana Bailey APRN [address] [place] [address] Medication Refill Social History Tobacco Use Types [...] AM EDT Metoprolol Medication Refill Protocol passed. [facility] Action: Approved 90 day supply with sufficient refills to noted follow-up date by provider or protocol if no follow-up date noted, not to exceed 90 days past that date. Omeprazole Medication Refill Protocol passed. magnetic resonance technologist Action: Approved 90 day supply with sufficient [...] EST Office Visit [facility] [place] [facility] [address] [place] [address] Juana Bailey APRN [address] [facility] [place] [address] documented as of this encounter Goals Goal [...] documented as of this encounter Care Teams Narcotics Detective Relationship Specialty Start Date End Date Juana Bailey APRN [address] [facility] [place] [address] PCP - General Nurse Practitioner-Family 5/17/23 documented as of this encounter
--- OUTSIDE RECORDS SUMMARY | 2024-03-23 10:55 | XMS_ITS | Encounter Summary ---
Author Organization [place] [address] Care Team Providers Care Puff Iron Operator Name Role Phone Juana Bailey APRN Primary Care Provider +1- [phone] Reason for Visit * Reason Onset Date Comments Other 08/29/2022 Encounter Details Date Type Department Care Team (Late st Contact Info) Description 08/29/2022 Telephone [facility] [address] [facility] [address] [place] [address] Yvonne Albrecht RMA Other Social [...] EST Office Visit [facility] [address] [place] [phone] Juana Bailey APRN [address] [facility] [place] [id number] documented as of this encounter Goals Goal [...] on filedocumented in this encounter Care Teams Puff Iron Operator Relationship Specialty Start Date End Date Juana Bailey APRN [address] [place] [address] [place] [address] PCP - General Nurse Practitioner-Family 08/29/22 documented as of this encounter
--- OUTSIDE RECORDS SUMMARY | 2024-03-23 10:55 | XMS_ITS | Encounter Summary ---
Author Organization [place] [address] Care Team Providers Care Fish Hatchery Man Name Role Phone Juana Bailey APRN Primary Care Provider Reason for Visit * Reason Comments Medication Refill Encounter Details Date Type Department Care Team (Late st Contact Info) Description 08/29/2022 Refill [facility] [address] [place] [phone] Juana Bailey APRN [address] [place] [id number] Medication Refill Social History Tobacco Use Types [...] EST Office Visit [facility] [address] [place] [phone] Juana Bailey APRN [address] [place] [address] documented as of this encounter Goals Goal [...] documented as of this encounter Care Teams Fish Hatchery Man Relationship Specialty Start Date End Date Juana Bailey APRN [address] [facility] [place] [address] PCP - General Nurse Practitioner-Family 08/29/22 documented as of this encounter
--- OUTSIDE RECORDS SUMMARY | 2024-03-23 10:55 | XMS_ITS | Encounter Summary ---
Author Organization [place] [address] Care Team Providers Care Leather Roller Name Role Phone Juana Bailey APRN Primary Care Provider Reason for Visit * Reason Comments Cough Watery Eye Congestion Shortness of Breath States allergies Encounter Details Date Type Department Care Team (Late st Contact Info) Description 11/29/2022 11:45 AM EDT Office Visit SEP Nati [facility] [address] [place] [phone] Juana Bailey APRN [address] [place] [address] Acute bronchitis, unspecified organism (Primary Dx) Social History Tobacco Use Types [...] Sign Reading Time Taken Comments Blood Pressure 110/74 11/29/2022 11:46 AM EDT Pulse 81 11/29/2022 11:46 AM EDT Temperature 36.4 ??C (97.6 ??F) 11/29/2022 11:46 AM E DT Respiratory Rate 20 11/29/2022 11:46 AM EDT Oxygen Saturation 97% 11/29/2022 11:46 AM EDT Inhaled Oxygen Concentration - - Weight 133.4 kg (294 lb) 11/29/2022 11:46 AM EDT Height - - Body Mass [...] Refills Last Filled Start Date End Date albuterol (PROVENTIL HFA;VENTOLIN HFA) 90 mcg/actuation Inhl HFA Aerosol InhalerIndications :Acute bronchitis, unspecified organism Inhale 2 Puffs into the lungs every 4 hours as needed for Wheezing. 1 Each 2 11/29/2022 azithromycin (ZITHROMAX) 250 mg Oral TabletIndications: Acute bronchitis, unspecified organism Take 2 tablets (500 mg) on Day 1, followed by 1 tablet (250 mg) once daily on Days 2 through 5. 6 Tablet 11/29/2022 3 documented in this encounter Progress Notes * Juana Bailey APRN - 11/29/2022 11:45 AM EDT Assessment Diagnoses and all orders for this visit: Acute bronchitis, unspecified organism - albuterol (PROVENTIL HFA;VENTOLIN HFA) 90 mcg/actuation Inhl HFA Aerosol Inhaler; Inhale 2 Puffs into the lungs every 4 hours as needed for Wheezing. Dispense: 1 Each; Refill: 2 - azithromycin (ZITHROMAX) 250 mg Oral Tablet; Take 2 tablets (500 mg) on Day 1, followed by 1 tablet (250 mg) once daily on Days 2 through 5. Dispense: 6 Tablet; Refill: 0 - methylPREDNISolone acetate (DEPO-Medrol) injection 80 mg - betamethasone acet-betamethasone sodium phos (CELESTONE) injection 6 mg As above. No distress. Vitals stable. Declines COVID and flu testing today. Medications as prescribed. Encouraged use of OTC medications such as decongestants and antipyretics for symptom relief. Cool mist humidifier at night. Encouraged hydration, fever/pain control with followup for persistent or worsening sx. Progress Note: Vitals: 11/29/22 1146 BP: 110/74 Pulse: 81 Resp: 20 Temp: 97.6 ??F (36.4 ??C) TempSrc: Forehead SpO2: 97% Weight: 294 lb (133.4 kg) SUBJECTIVE: Chief Complaint Patient presents with Cough Watery Eye Congestion Shortness of Breath States allergies HPI: Patient presents office today with several day history of chest congestion, cough, this tightness and wheezing. She does not have any known fevers. She does have body aches but states she has chronicaches and this is not worse. She denies any shortness of breath or swelling. She does admit to someCOVID exposure but took home COVID testing that was negative. Review of Systems Constitutional: Negative for fever. HENT: Positive for congestion. Respiratory: Positive for cough, chest tightness and wheezing. Negative for shortness of breath. Cardiovascular: Negative for chest pain, palpitations and leg swelling. Musculoskeletal: Positive for arthralgias, back pain and myalgias. Skin: Negative for rash and wound. Hematological: Negative for adenopathy. OBJECTIVE: Physical Exam Constitutional: Appearance: She is obese. HENT: Head: Normocephalic and atraumatic. Cardiovascular: Rate and Rhythm: Normal rate and regular rhythm. Heart sounds: Normal heart sounds. Pulmonary: Effort: Pulmonary effort is normal. Breath sounds: Wheezing present. Neurological: Mental Status: She is alert and oriented to person, place, and time. Psychiatric: Mood and Affect: Mood normal. Thought Content: Thought content normal. Judgment: Judgment normal. documented in this encounter Plan of Treatment Upcoming Encounters Date Type Department Care Team (Late st Contact Info) Description 05/07/2024 1:00 PM EST Office Visit ASHELY [place] [address] [place] [address] Juana Bailey APRN [address] [place] [address] documented as of this encounter Goals Goal [...] as of this encounter Visit Diagnoses Diagnosis Acute bronchitis, unspecified organism- Primary documented in this encounter Administered Medications Inactive Administered Medications - up to 1 most recent administrations Medication Order MAR Action Action Date Dose Rate Site betamethasone acet-betamethasone sodium phos (CELESTONE) injection 6 mg 6 mg, Intramuscular, ONCE, 1 dose, On Cris 11/29/22 at 1200, Do not refrigerate, Dx: 1. Acute bronchitis, unspecified organismIndications:Acute bronchitis, unspecified organism Given 11/29/2022 11:58 AM EDT 6 mg Left upper gluteus methylPREDNISolone acetate (DEPO-Medrol) injection 80 mg 80 mg, Intramuscular, ONCE, 1 dose, On Cris 11/29/22 at 1200, Dx: 1. Acute bronchitis, unspecified organismIndications:Acute bronchitis, unspecified organism Given 11/29/2022 11:58 AM EDT 80 mg Left upper gluteus documented in this encounter Care Teams Leather Roller Relationship Specialty Start Date End Date Juana Bailey APRN [address] [place] [address] PCP - General Nurse Practitioner-Family 08/29/22 documented as of this encounter
--- OUTSIDE RECORDS SUMMARY | 2024-03-23 10:55 | XMS_ITS | Encounter Summary ---
Author Organization [place] [address] Care Team Providers Care Motor Inspection Mechanic Name Role Phone Juana Bailey APRN Primary Care Provider [phone]- [phone] Reason for Visit * Reason Onset Date Comments Prior Authorization 10/26/2022 Letter of me dical necessity requested in order for them to do a PA Encounter Details Date Type Department Care Team (Late st Contact Info) Description 10/26/2022 Telephone SEP Nati [address] [place] [address] Juana Bailey APRN [address] [facility] [place] [address] Prior Authorization (Letter of medical necessity requested [...] for incontenence supplies. Please fax this to [phone]. Please call with add'l questions. * Telephone [...] anyone about this. * Telephone Encounter - Heide Young - 10/31/2022 2:05 PM EDT Endy [...] EST Office Visit [facility] [place] [facility] [address] [place] [phone] Juana Bailey APRN [address] [facility] [place] [address] documented as of this encounter Goals Goal [...] on filedocumented in this encounter Care Teams Motor Inspection Mechanic Relationship Specialty Start Date End Date Juana Bailey APRN [address] [place] [address] B[place] [address] PCP - General Nurse Practitioner-Family 08/29/22 documented as of this encounter
--- OUTSIDE RECORDS SUMMARY | 2024-03-23 10:55 | XMS_ITS | Encounter Summary ---
Author Organization [place] [address] Care Team Providers Care Ticket Worker Name Role Phone Juana Bailey APRN Primary Care Provider [phone]- [phone] Reason for Visit * Reason Comments Diabetes Medication Management Discuss meds Encounter Details Date Type Department Care Team (Latest Contact Info) Description 11/07/2022 2:30 PM EDT Office Visit [facility] [place] [address] [place] [address] Juana Bailey APRN [address] [place] [address] Statin myopathy (Primary Dx); Dyslipidemia; Stage [...] Progress Notes * Juana Bailey, ZAHRA - 11/07/2022 2:30 PM EDT Assessment Diagnoses [...] Per pt, has known CVD diagnosed by [facility]. Still need those records. Known sleep [...] EST Office Visit [facility] [place] [facility] [address] [place] [address] Juana Bailey APRN [address] [place] [address] documented as of this encounter Goals Goal [...] 11/07/2022 documented in this encounter Care Teams Ticket Worker Relationship Specialty Start Date End Date Juana Bailey APRN [address] [place], [place] [address] PCP - General Nurse Practitioner-Family 08/29/22 documented as of this encounter
--- OUTSIDE RECORDS SUMMARY | 2024-03-23 10:55 | XMS_ITS | Encounter Summary ---
Author Organization [place] [address] Care Team Providers Care Director Fundraising Name Role Phone Juana Bailey APRN Primary Care Provider Encounter Details Date Type Department Care Team (Late st Contact Info) Description 10/17/2022 11:59 PM EDT Anesthesia Event [facility] ENDOSCOPY [address] [place] [address] Kishor Saavedra DO [address] [facility] [place] [address] Anesthesia Record Procedure Summary Procedure [...] (+) Headaches: GI/Hepatic/Renal (+) GERD/PUD: Endo/Other (+)Obese: SOLID WASTE FACILITY SUPERVISOR Additional Pre-evaluation comments Opioids There is no height or weight on file to calculate BMI. Anesthesia Plan ASA 2 Anesthesia Plan: MAC Induction: intravenous Monitors: STD Chart Reviewed documented in this encounter Plan of Treatment Upcoming Encounters Date Type Department Care Team (Late st Contact Info) Description 05/07/2024 1:00 PM EST Office Visit [facility]EL [address] [place] [phone] Juana Bailey APRN [address] [facility] [place] [address] documented as of this encounter Goals Goal Patient Goal Type Associated Problems Recent Progress Patient-Stated? Author Blood Pressure < 140/90 Blood Pressure 112/70(2023 8:24 AM EDT) No Juana Bailey APRN Maintain a healthy diet, exercise regularly and maintain an ideal body weight General No Noelle Yeh, JUAN Stay Tobacco Free Lifestyle No Juana Bailey APRN documented as of this encounter Visit Diagnoses Not on filedocumented in this encounter Care Teams Director Fundraising Relationship Specialty Start Date End Date Juana Bailey APRN [address] [facility] [place] [address] PCP - General Nurse Practitioner-Family 08/29/22 documented as of this encounter
--- OUTSIDE RECORDS SUMMARY | 2024-03-23 10:55 | XMS_ITS | Encounter Summary ---
Author Organization [facility] [place] [address] Care Team Providers Care Wagon Driver Salesperson Name Role Phone Juana Bailey APRN Primary Care Provider [phone]- [phone] Reason for Visit * Reason Comments Medication Refill Encounter Details Date Type Department Care Team (Late st Contact Info) Description 10/17/2022 Refill SEP Nati [address] [place] [phone] Juana Bailey APRN [address] [place] [id number] Medication Refill Social History Tobacco Use Types [...] EST Office Visit [facility] [place] [facility] [address] [place] [phone] Juana Bailey APRN [address] [facility] [place] [address] documented as of this encounter Goals Goal [...] documented as of this encounter Care Teams Wagon Driver Salesperson Relationship Specialty Start Date End Date Juana Bailey APRN [address] [facility] [place] [address] PCP - General Nurse Practitioner-Family 08/29/22 documented as of this encounter
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
--- OUTSIDE RECORDS SUMMARY | 2024-03-23 10:55 | XMS_ITS | Encounter Summary ---
Author Organization [place] [address] Care Team Providers Care Senior Sql Server Developer Name Role Phone Juana Bailey APRN Primary Care Provider [phone]- [phone] Reason for Visit * Reason Onset Date Comments Results 10/26/2022 Labs Encounter Details Date Type Department Care Team (Late st Contact Info) Description 10/26/2022 Telephone SEP Nati [address] [place] [phone] Juana Bailey APRN [address] [place] [address] Results (Labs /) Social History Tobacco Use [...] EST Office Visit [facility] [place] [facility] [address] [place] [phone] Juana Bailey APRN [address] [facility] [place] [address] documented as of this encounter Goals Goal [...] filedocumented in this encounter Care Teams Senior Sql Server Developer Relationship Specialty Start Date End Date Juana Bailey APRN [address] [place] [address] [place] [address] PCP - General Nurse Practitioner-Family 08/29/22 documented as of this encounter
--- OUTSIDE RECORDS SUMMARY | 2024-03-23 10:55 | XMS_ITS | Encounter Summary ---
Author Organization [place] [address] Care Team Providers Care Short Range Air Defense Artillery Name Role Phone Juana Bailey APRN Primary Care Provider [phone]- [phone] Reason for Visit * Reason Onset Date Comments Central Order Completion Outreach 11/08/2022 mammo Encounter Details Date Type Department Care Team (Late st Contact Info) Description 11/08/2022 Patient Outreach [facility] [address] [place] [address] Juana Bailey APRN [address] [place] [address] Central Order Completion Outreach (mammo) Social History [...] PM EST Office Visit [facility] PATEL [address] [place] [phone] Juana Bailey APRN [address] [place] [address] documented as of this encounter Goals Goal [...] on filedocumented in this encounter Care Teams Short Range Air Defense Artillery Relationship Specialty Start Date End Date Juana Bailey APRN [address] [place], [place] [address] PCP - General Nurse Practitioner-Family 08/29/22 documented as of this encounter
--- OUTSIDE RECORDS SUMMARY | 2024-03-23 10:55 | XMS_ITS | Encounter Summary ---
Author Organization [facility] [place] [address] Care Team Providers Care Bowling Ball Engraver Name Role Phone Juana Bailey APRN Primary Care Provider Reason for Visit * Reason Comments Medication Refill Encounter Details Date Type Department Care Team (Late Contact Info) Description 10/03/2022 Refill SEP Nati PATEL [address] [place] [phone] Juana Bailey APRN [address] [place] [address] Medication Refill Social History Tobacco Use Types [...] 1:00 PM EST Office Visit SEP Nati [place] [phone] Juana Bailey APRN [address] [facility] [place] [address] documented as of this encounter Goals Goal [...] documented as of this encounter Care Teams Bowling Ball Engraver Relationship Specialty Start Date End Date Juana Bailey APRN [address] [facility] [place] [address] PCP - General Nurse Practitioner-Family 08/29/22 documented as of this encounter
--- OUTSIDE RECORDS SUMMARY | 2024-03-23 10:55 | XMS_ITS | Encounter Summary ---
Author Organization [place] [address] Care Team Providers Care Sheet Metal Duct Installer Apprentice Name Role Phone Juana Bailey APRN Primary Care Provider Reason for Visit * Reason Comments Medication Refill Encounter Details Date Type Department Care Team (Late st Contact Info) Description 08/29/2022 Refill SEP Nati [address] [place] [phone] Juana Bailey APRN [address] [place] [id number] Medication Refill Social History Tobacco Use Types [...] EST Office Visit [facility] [place] [facility] [address] [place] [phone] Juana Bailey APRN [address] [facility] [place] [address] documented as of this encounter Goals Goal [...] documented as of this encounter Care Teams Sheet Metal Duct Installer Apprentice Relationship Specialty Start Date End Date Juana Bailey APRN [address] [facility] [place] [address] PCP - General Nurse Practitioner-Family 08/29/22 documented as of this encounter
--- OUTSIDE RECORDS SUMMARY | 2024-03-23 10:55 | XMS_ITS | Encounter Summary ---
Author Organization Healthcare Address [address] [place] [address] Care Team Providers Care Racing Secretary And Handicapper Name Role Phone Unavailable Primary Care Provider Unavailabl e Encounter Details Date Type Department Care Team (Late st Contact Info) Description 04/02/2016 [facility] Vitals Encounter [facility] OUTPATIENT CONVERSIONS [address] [place] [address] ProviderAnne-Marie MD [address] [place] [address] Social History Tobacco Use Types Packs/Day Years [...]
--- OUTSIDE RECORDS SUMMARY | 2024-03-23 10:55 | XMS_ITS | Encounter Summary ---
Author Organization [place] [address] Care Team Providers Care Ancient Art Curator Name Role Phone Juana Bailey APRN Primary Care Provider [phone] Reason for Visit * Reason Comments Medication Refill Encounter Details Date Type Department Care Team (Late Contact Info) Description 08/29/2022 Refill SEP Nati PATEL [address] [place] [phone] Juana Bailey APRN [address] [place] [address] Medication Refill Social History Tobacco Use Types [...] PM EST Office Visit SEP Nati [place] [phone] Juana Bailey APRN [address] [facility] [place] [address] documented as of this encounter Goals Goal [...] documented as of this encounter Care Teams Ancient Art Curator Relationship Specialty Start Date End Date Juana Bailey APRN [address] [facility] [place] [address] PCP - General Nurse Practitioner-Family 08/29/22 documented as of this encounter
--- OUTSIDE RECORDS SUMMARY | 2024-03-23 10:55 | XMS_ITS | Encounter Summary ---
Author Organization [place] [address] Care Team Providers Care Doll Wig Maker Rooted Hair Name Role Phone Juana Bailey APRN Primary Care Provider [phone]- [phone] Reason for Visit * Reason Comments Other Soft lump right shou lder Encounter Details Date Type Department Care Team (Latest Contact Info) Description 10/23/2022 2:45 PM EDT Office Visit [facility] [address] [place] [phone] Juana Bailey APRN [address] [place] [address] Type 2 diabetes mellitus with hyperlipidemia (HCC) (HCC) (Primary Dx); Dyslipidemia; Stage 3b chronic kidney disease (HCC); Normocytic anemia; Screening for thyroid disorder; Myalgia due to statin; Cervical lymphadenopathy; Type 2 diabetes mellitus without complication, unspecified whether gas fitter helper insulin use (HCC); Mixed stress and urge [...] 2 diabetes mellitus without complication, unspecified whether care home insulin use (HCC) (Chronic) - IRIS DIABETIC [...] EST Office Visit [facility] [place] [facility] [address] [place] [phone] LynnJuana lemon APRN [address] [place] [address] documented as of this encounter Goals Goal Patient Goal Type Associated Problems Recent Progress Patient-Stated? Author Blood Pressure < 140/90 Blood Pressure 112/70(2023 8:24 AM EDT) No RoteJuana, MIXER AND SCALER Maintain a healthy diet, exercise regularly and maintain an ideal body weight General No Noelle Yeh RMA BMI (Calculated) < 30 General 38.7(10/24/19 24 9:24 AM EDT) No RoteJuana, MIXER AND SCALER Stay Tobacco Free Lifestyle No RoteJuana, MIXER AND SCALER HEMOGLOBIN A1C < 7.0 Result Component 6.1( [...] 2 diabetes mellitus without complication, unspecified whether gas fitter helper insulin use (HCC) documented in this encounter Results * (ABNORMAL) LIPID PANEL REFLEX (10/23/2022 3:40 PM EDT) Cholesterol 214(H) <200 mg/dL 10/25/2022 12:49 PM EDT [facility] Comment: < 200 ?Desirable 200 - 239 ? Borderline High >= 240 ?High Triglyceride 269(H) <150 mg/dL 10/25/2022 12:49 PM EDT [employer] Comment: < 150 ? Normal 150 - [...] Specimen? 023 12:49 PM EDT [facility] Blood VENOUS BLOOD / Unknown Venipuncture / Unknown 10/23/2022 3:40 PM EDT 10/23/2022 3:40 PM EDT Juana Bailey APRN CHEMISTRY ORDERABLES Final Result [facility] [address] [facility] , [place] [address] * IRON+TIBC (10/23/2022 3:40 PM EDT) Iron [...] EDT 10/23/2022 3:40 PM EDT Juana Bailey MIXER AND SCALER CHEMISTRY ORDERABLES Final Result Performing Organization Address [facility]/ZIP Co de Phone Number [facility] [employer] [facility] [address] [facility] , [place] [address] * (ABNORMAL) URIC ACID (10/23/2022 3:40 PM EDT) [facility] Uric Acid 8.1(H) 2.4 - 5.7 mg/dL 10/23/2022 10:16 PM EDT [facility] [employer] [facility] Blood VENOUS BLOOD / Unknown Venipuncture / Unknown 10/23/2022 3:40 PM EDT 10/23/2022 3:40 PM EDT [facility] CHEMISTRY ORDERABLES Final Result Performing Organization Address [facility] de Phone Number [facility] [employer] [facility] [address] [facility] [place] [address] [address] [place] [address] * VITAMIN D 25 HYDROXY (10/23/2022 3:40 PM EDT) [facility] Vit D 25 OH 32.6 30.0 - 150.0 ng/mL 10/23/2022 7:36 PM EDT [facility] [employer] [facility] Comment: Preferred: >= 30 ng/mL Insufficient: 21-29 ng/mL Deficient <= 20 ??ng/mL Possible Toxicity: >150 ng/mL Samples should not be taken from patients receiving therapy with high biotin doses (i.e. > 5 mg/day) until at least 8 hours following the last biotin administration. Blood VENOUS BLOOD / Unknown Venipuncture / Unknown 10/23/2022 3:40 PM EDT 10/23/2022 3:40 PM EDT [facility] CHEMISTRY ORDERABLES Final Result Performing Organization Address City/[facility] Co de Phone Number [facility] [employer] [facility] [address] [facility] , [place] [address] * VITAMIN B12/ FOLIC ACID (10/23/2022 3:40 PM EDT) Vitamin B12 921 232 - 1,245 pg/mL 10/23/2022 7:37 PM EDT [facility] [employer] Folate >16.00 >=4.80 ng/mL 10/23/2022 7:37 PM EDT [facility] [employer] Blood VENOUS BLOOD / Unknown Venipuncture / Unknown 10/23/2022 3:40 PM EDT 10/23/2022 3:40 PM EDT Narrative [facility] [employer], [facility] - 10/23/2022 7:37 PM EDT Ingestion of omar doses of biotin (>5 mg/day) taken within 8 hours of drawing blood sample can interfere with this immunoassay test. [facility] CHEMISTRY ORDERABLES Final Result Performing Organization Address [facility] Co de Phone Number [address] , [place] [address] * T4, FREE (THYROXINE) (10/23/2022 3:40 PM EDT) Free T4 1.17 0.80 - 1.80 ng/dL 10/23/2022 10:16 PM EDT [facility] [facility] Blood VENOUS BLOOD / Unknown Venipuncture / Unknown 10/23/2022 3:40 PM EDT 10/23/2022 3:40 PM EDT Narrative [facility] [employer] - 10/23/2022 10:16 PM EDT Ingestion of omar doses of biotin (>5 mg/day) taken within 8 hours of drawing blood sample can interfere with this immunoassay test. [facility] Center[facility] CHEMISTRY ORDERABLES Final Result Performing Organization Address [facility] Co de Phone Number [address] [place] [address] * TSH REFLEX (10/23/2022 3:40 PM EDT) TSH Reflex 2.020 0.270 - 4.200 mcIU/mL 10/23/2022 10:16 PM EDT [facility] [employer] Blood VENOUS BLOOD / Unknown Venipuncture / Unknown 10/23/2022 3:40 PM EDT 10/23/2022 3:40 PM EDT Narrative [facility] [employer] [facility] - 10/23/2022 10:16 PM EDT Ingestion of omar doses of biotin (>5 mg/day) taken within 8 hours of drawing blood sample can interfere with this immunoassay test. Juana Bailey APRN CHEMISTRY ORDERABLES Final Result Performing Organization Address [facility] Co de Phone Number [facility] [employer] [address] , [place] [address] * (ABNORMAL) HEMOGLOBIN A1C (10/23/2022 3:40 PM EDT) Pathologist [facility] Hgb A1C 7.6(H) 4.2 - 5.6 % 10/23/2022 8:40 PM EDT [facility] [employer] Est. Avg Glucose 171 mg/dL 10/23/2022 8:40 PM EDT [facility] [employer] [facility] Blood VENOUS BLOOD / Unknown Venipuncture / Unknown 10/23/2022 3:40 PM EDT 10/23/2022 3:40 PM EDT Narrative [facility] [employer] [facility] - 10/23/2022 8:40 PM EDT REFERENCE [...] CHEMISTRY ORDERABLES Final Result Performing Organization Address [facility] de Phone Number [facility] [employer] [address] , [place] [address] * (ABNORMAL) COMPREHENSIVE METABOLIC PANEL (10/23/2022 3:40 PM EDT) Pathologist [facility] Sodium 134(L) 136 - 145 mmol/L 10/23/2022 [...] mL/min/1.7 3 m2 10/23/2022 10:16 PM EDT [facility] Comment:Estimated GFR was ca lculated using the CKD-EPIcr (2020) equation refit without race. The equation is recommended by the National Kidney Foundation - [place] [employer] of Nephrology Task Force. Blood VENOUS BLOOD / Unknown Venipuncture / Unknown 10/23/2022 3:40 PM EDT 10/23/2022 3:40 PM EDT Juana Bailey MIXER AND SCALER CHEMISTRY ORDERABLES Final Result [facility] [address] [facility], [address] [place] [phone] [facility] [address] [place] [phone] * (ABNORMAL) CBC WITH DIFF (10/23/2022 3:40 [...] 10/23/2022 6:59 PM EDT [facility] Comment:Automated count of m etamyelocytes, myelocytes and promyelocytes. Lymph Percent 24.0 % 10/23/2022 6:59 PM EDT [facility] [place] Percent 6.9 % 10/23/2022 6:59 PM EDT [facility] Eos Percent 4.5 % 10/23/2022 6:59 PM EDT [facility] Baso Percent 0.6 % 10/23/2022 6:59 PM EDT [facility] Neut # 6.4(H) 1.6 - 6.1 x10(3)/mcL 10/23/2022 6:59 PM EDT [facility] Comment:Neutrophils equals s egs plus bands IMMGRAN# 0.1 0.0 - 0.1 x10(3)/mcL 10/23/2022 6:59 PM EDT [facility] Comment:Automated count of m etamyelocytes, myelocytes and promyelocytes. An absolute IG <0.1 is reported as 0.0. Lymph # 2.4 1.2 - 3.9 x10(3)/mcL 10/23/2022 6:59 PM EDT [facility] [place] # 0.7 0.3 - 0.9 x10(3)/mcL 10/23/2022 6:59 PM EDT [facility] Eos# 0.5 0.0 - 0.5 x10(3)/[facility] 10/23/2022 6:59 PM EDT [facility] Baso # 0.1 0.0 - 0.1 x10(3)/[facility] 10/23/2022 6:59 PM EDT [facility] Blood VENOUS BLOOD / Unknown Venipuncture / Unknown 10/23/2022 3:40 PM EDT 10/23/2022 3:40 PM EDT us Juana Bailey MIXER AND SCALER HEMATOLOGY ORDERABLES Final Result [facility] [address] [facility] , [address] [place], [place] [id number] * (ABNORMAL) POCT URINE MICROALBUMIN (10/23/2022 3:24 PM EDT) Pathologist [facility] Microalb, Ur 80 mg/L 10/24/2022 8:39 AM EDT [facility] [place] Creatinine Urine 200 mg/dL 10/24/2022 8:39 AM EDT [facility] [place] Microalb/Disbursing Officer. Ratio 30 - 300(A) <30 mg/g 10/24/2022 8:39 AM EDT [facility] [place] Urine URINE SPECIMEN COLLECTION / Unknown 10/23/2022 3:24 PM EDT 10/24/2022 8:39 AM EDT Juana Bailey MIXER AND SCALER POINT OF CARE TEST ORDERABL ES Final Result [facility] [address] [place], [place] [phone] * (ABNORMAL) IRIS DIABETIC RETINOPATHY EXAM (10/23/2022 10:51 AM EDT) Pathologist [facility] Retinopathy Exam Severity ALERT(A) [facility] Right Diabetic Retinopathy None [facility] Right Macular Edema None [facility] Right Other Retina Not Gradable(A) [facility] Right Eye Image Quality Not Gradable Image [facility] Left Diabetic Retinopathy None [facility] Left Macular Edema None [facility] Left Other Retina None [facility] Left Eye Image Quality Gradable Image [facility] 10/23/2022 10:5 1 AM EDT 10/23/2022 10:51 AM EDT Impressions [facility] - 10/24/2022 1:02 PM EDT Retinal Study Result for JANE FARIAS JANE FARIAS, a 52 y/o, F (: 1970, ) presented to [facility] on 10-23-2022 for a retinal imaging study of the left and right eyes. Based on the findings of the study, the following is recommended for JANELAVONNE FARIAS Not Gradable Eye(s) Found: Image(s) not [...] signed by Jerri Espinal MD, , Taxonomy: [id number] on 10-24-2022 22:02 [facility]. NOTE: ??Any pathology noted on this diabetic retinal evaluation should be confirmed by an appropriate ophthalmic examination. Juana Bailey APRN OPHTHALMOLOGY SERVICES MUE KVNG Final Result Performing Organization Address City/State/[facility] Co de Phone Number [facility] [address] [place] [address] documented in this encounter Visit Diagnoses Diagnosis Type 2 diabetes mellitus with hyperlipidemia (HCC)- Primary Dyslipidemia Other and unspecified hyperlipidemia Stage 3b chronic kidney disease (HCC) Normocytic anemia Anemia, unspecified Screening for thyroid disorder Myalgia due to statin Cervical lymphadenopathy Enlargement of lymph nodes Type 2 diabetes mellitus without complication, unspecified whether care home insulin use (HCC) Mixed stress and urge incontinence documented in this encounter Care Teams Doll Wig Maker Rooted Hair Relationship Specialty Start Date End Date Juana Bailey APRN [address] [facility] [address] PCP - General Nurse Practitioner-Family 08/29/22 documented as of this encounter
--- OUTSIDE RECORDS SUMMARY | 2024-03-23 10:55 | XMS_ITS | Encounter Summary ---
Author Organization [place] [address] Care Team Providers Care Assistant Merchandise Manager Name Role Phone Juana Bailey APRN Primary Care Provider [phone] Reason for Visit * Reason Comments Medication Refill Encounter Details Date Type Department Care Team (Late Contact Info) Description 10/26/2022 Refill [facility] [place] [address] [place] [phone] Juana Bailey APRN [address] [place] [address] Medication Refill Social History Tobacco Use Types [...] EST Office Visit [facility] [place] [facility] [address] [place] [address] Juana Bailey APRN [address] [facility] [place] [address] documented as of this encounter Goals Goal [...] documented as of this encounter Care Teams Assistant Merchandise Manager Relationship Specialty Start Date End Date Juana Bailey APRN [address] [place] [address] [place] [address] PCP - General Nurse Practitioner-Family 08/29/22 documented as of this encounter
--- OUTSIDE RECORDS SUMMARY | 2024-03-23 10:55 | XMS_ITS | Encounter Summary ---
Author Organization [place] [address] Care Team Providers Care Immigration Investigator Name Role Phone Unavailable Primary Care Provider Unavailabl e Reason for Visit * Reason Onset Date Comments Colonoscopy 08/24/2022 Encounter Details Date Type Department Care Team (Late st Contact Info) Description 08/24/2022 Telephone [facility] [address] [place] [address] Son Razo MD [address] [place] [address] Colonoscopy Social History Tobacco Use Types Packs/Day [...] EST Office Visit [facility] [address] [place] [phone] Juana Bailey APRN [address] [facility] [place] [address] documented as of this encounter Goals Goal [...]
--- OUTSIDE RECORDS SUMMARY | 2024-03-23 10:55 | XMS_ITS | Encounter Summary ---
Author Organization [place] [address] Care Team Providers Care Ore Sampler Name Role Phone Jauna Bailey APRN Primary Care Provider [phone] Encounter Details Date Type Department Care Team (Late st Contact Info) Description 10/25/2022 Orders Only [facility] [address] [place] [address] Juana Bailey APRN [address] [place] [address] Elevated uric acid in blood (Primary [...] PM EST Office Visit [facility] [address] [place] [phone] Juana Bailey APRN [address] [place] [address] documented as of this encounter Goals Goal [...] LIPID PANEL REFLEX (10/23/2022 3:40 PM EDT) [facility] Signature Cholesterol 214(H) <200 mg/dL 10/25/2022 12:49 PM EDT [facility] Comment: < 200 ?Desirable 200 - 239 ? Borderline High >= 240 ?High Triglyceride 269(H) <150 mg/dL 10/25/2022 12:49 PM EDT [facility] Comment: < 150 ? Normal 150 - 199 ?Borderline High 200 - 499 ?High ??>= 500 ? Very High HDL 39(L) >=40 mg/dL 10/25/2022 12:49 PM EDT [facility] Comment: ??> 60 ?Optimal 40 - 60 ?Acceptable ?? < 40 ?Low LDL Calculated 127(H) <100 mg/dL 10/25/2022 12:49 PM EDT [facility] Non-HDL-C Calculated 175(H) <=129 mg/dL 10/25/2022 12:49 PM EDT [facility] Comment: <130 ?Desirable 130-159 Above Desirable 160-189 Borderline High 190-219 High >= 220 ??Very High Fasting Specimen? 023 12:49 PM EDT [facility] Blood VENOUS BLOOD / Unknown Venipuncture / Unknown 10/23/2022 3:40 PM EDT 10/23/2022 3:40 PM EDT Juana Bailey APRN CHEMISTRY ORDERABLES Final Result [facility] [address] [facility] , [address] [place] [phone] documented in this encounter Visit Diagnoses Diagnosis Elevated uric acid in blood- Primary Other abnormal blood chemistry Dyslipidemia Other and unspecified hyperlipidemia Myalgia due to statin Stage 3b chronic kidney disease (HCC) Type 2 diabetes mellitus with hyperlipidemia (HCC) ASHD (arteriosclerotic heart disease) Coronary atherosclerosis of unspecified type of vessel, ione or graft Paroxysmal atrial fibrillation (HCC) Atrial [...] documented as of this encounter Care Teams Ore Sampler Relationship Specialty Start Date End Date Juana Bailey APRN [address] [place] [address] PCP - General Nurse Practitioner-Family 08/29/22 documented as of this encounter
--- OUTSIDE RECORDS SUMMARY | 2024-03-23 10:55 | XMS_ITS | Encounter Summary ---
Author Organization [facility] [place] [address] Care Team Providers Care Java Websphere Developer Name Role Phone Juana Bailey APRN Primary Care Provider [phone] Reason for Visit * Reason Onset Date Comments Other 10/15/2022 FYI- pt calling to cancel colonoscopy- unable to drink prep drink Encounter Details Date Type Department Care Team (Late st Contact Info) Description 10/15/2022 Telephone [facility] [address] [place] [phone] Juana Bailey APRN [address] [place] [phone] Other (FYI- pt calling to cancel colonoscopy- [...] PM EST Office Visit [facility] [place] [address] [place] [phone] Juana Bailey APRN [address] [facility] [place] [address] documented as of this encounter Goals Goal [...] on filedocumented in this encounter Care Teams Java Websphere Developer Relationship Specialty Start Date End Date Juana Bailey APRN [address] [place], [place] [address] PCP - General Nurse Practitioner-Family 08/29/22 documented as of this encounter
--- OUTSIDE RECORDS SUMMARY | 2024-03-23 10:55 | XMS_ITS | Clinical Summary ---
Author Organization Healthcare Address [address] [place] [address] Care Team Providers Care Oil Prospecting Observer Name Role Phone Gamal Queen MD Primary Care Provider [phone] Family History 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 Relation Name Comments [...] of Treatment Not on file Care Teams Oil Prospecting Observer Relationship Specialty Start Date End Date Gamal Queen MD [address] [place] [address] PCP - General 08/26/20
--- OUTSIDE RECORDS SUMMARY | 2024-03-23 10:55 | XMS_ITS | Encounter Summary ---
Author Organization Healthcare Address [address] [place] [address] Care Team Providers Care Hub Cutter Name Role Phone Unavailable Primary Care Provider Unavailabl e Encounter Details Date Type Department Care Team (Late st Contact Info) Description 01/02/2016 [facility] Vitals Encounter [facility] OUTPATIENT CONVERSIONS [address] [place] [address] ProviderAnne-Marie MD [address] [place] [address] Social History Tobacco Use Types Packs/Day [...]
--- OUTSIDE RECORDS SUMMARY | 2024-03-23 10:55 | XMS_ITS | Encounter Summary ---
Author Organization [place] [address] Care Team Providers Care Joist Setter Name Role Phone Juana Bailey APRN Primary Care Provider [phone] Reason for Visit * Reason Comments Care Transition CM- Telephonic Outreach CM-Resource Coordination Encounter Details Date Type Department Care Team (Late st Contact Info) Description 10/26/2022 10:15 AM EDT Telemedicine [facility] [address] [place] [phone] Cristina Portillo, RN Encounter for support and [...] of this encounter Progress Notes * Cristina Portillo, PETER - 10/26/2022 10:15 AM EDT Images from [...] Called patient once, she stated for Office Child Protection Specialist (OCC) to call back as she was [...] had done at her eye doctor in [place] Medications: Patient denies any questions or concerns related to medications Education: Educated patient on: orde was faxed to [facility], and they will ship order to her home ifeverything is covered. [facility] accepts her insurance, so it should be covered Handouts: No handouts provided Goals: Goals Addressed This Visit's Progress Obtain incontinence supplies affordably by end of October 2022 (pt-stated) On track MyChart: Patient has MyChart activated, but reports they do not use the service Next Steps: Child Protection Specialist contact information given / reviewed Reviewed when to call Primary Care Provider (PCP) office, urgent care, or 911 Provider notified Child Protection Specialist will not follow at this time. Notes: Order to [facility] scanned into electronic medical record documented in this encounter Plan of Treatment Upcoming Encounters Date Type Department Care Team (Late st Contact Info) Description 05/07/2024 1:00 PM EST Office Visit [facility] [address] [place] [phone] Juana Bailey APRN [address] [place] [address] documented as of this encounter Goals Goal [...] Primary documented in this encounter Care Teams Joist Setter Relationship Specialty Start Date End Date Juana Bailey APRN [address] [place] [address] PCP - General Nurse Practitioner-Family 08/29/22 documented as of this encounter
--- OUTSIDE RECORDS SUMMARY | 2024-03-23 10:55 | XMS_ITS | Encounter Summary ---
Author Organization [place] [address] Care Team Providers Care Trade Economist Name Role Phone Juana Bailey APRN Primary Care Provider [phone] Reason for Visit * Reason Comments Medication Refill Encounter Details Date Type Department Care Team (Late st Contact Info) Description 11/12/2022 Refill [facility] [address] [place] [phone] Juana Bailey APRN [address] [place] [address] Medication Refill Social History Tobacco Use Types [...] PM EST Office Visit [facility]LY [facility] [address] [place] [phone] Juana Bailey APRN [address] [place] [address] documented as of this encounter Goals Goal [...] documented as of this encounter Care Teams Trade Economist Relationship Specialty Start Date End Date Juana Bailey APRN [address] [place] [address] PCP - General Nurse Practitioner-Family 08/29/22 documented as of this encounter
--- OUTSIDE RECORDS SUMMARY | 2024-03-23 10:55 | XMS_ITS | Encounter Summary ---
Author Organization Healthcare Address [address] [place] [address] Care Team Providers Care Ethnology Professor Name Role Phone Unavailable Primary Care Provider Unavailabl e Encounter Details Date Type Department Care Team (Late st Contact Info) Description 12/15/2015 [facility] Vitals Encounter [facility] OUTPATIENT CONVERSIONS [address] [place] [address] ProviderAnne-Marie MD [address] [place] [address] Social History Tobacco Use Types Packs/Day [...]
--- OUTSIDE RECORDS SUMMARY | 2024-03-23 10:55 | XMS_ITS | Encounter Summary ---
Author Organization [facility] [place] [address] Care Team Providers Care Spectacle Truer Name Role Phone Juana Bailey APRN Primary Care Provider [phone] Reason for Visit * Reason Comments Pharmacy Hyperlipidemia Management Repat leslie Encounter Details Date Type Department Care Team (Latest Contact Info) Description 10/25/2022 Specialty Pharmacy [facility] [address] [place], [place] [id number] Ericka Nettles RPH Pharmacy Hyperlipidemia Management (Repatha) [...] Nettles RPH - 10/25/2022 12:49 PM EDT [facility] Prescription received for Repatha (140mg/ml). Prescription requires prior authorization. Will routeto pharmacist for clinical review. Ericka Nettles PharmD Specialty Pharmacist * Ericka Nettles RPH - 10/25/2022 12:49 PM EDT [facility] - Hyperlipidemia Clinical Review Jane Madden [...] 10/23/2022 The 10-year ASCVD risk score (Lorenza DK, et al., 2019) is: 6% Values used [...] mouth 2 times daily. Once daily b [id number] acid Take 1 Capsule by mouth daily. [...] due to myalgias). Clinically appropriate. Ericka Nettles [facility] Specialty Pharmacist * Laly Downey CPhT - 10/25/2022 12:49 PM EDT [facility] Tried to submit PA on CMM, it stated that a PA has previously been defined for this patient and that I would need to call [phone]. Calling insurance to see if they can fax us the denial letter so that we can appeal. The rep statedthat she faxed the denial letter to us at [phone]. * Glory Sharma CPhT - 10/25/2022 12:49 PM EDT Images from the original note were not included. [facility] Prior Authorization Determination Received notice of PA denial for Repatha. PA was denied due to: Non referral patient. Will route to Specialty [facility] to determine next steps. Appeal letter pended. * Juana Bailey APRN - 10/25/2022 12:49 PM EDT Please have patient reach out to her senior database engineer and see If they will prescribe repatha for her. Her insurance will only cover it if prescribed by specialist. Thanks. * Sarah Crowell CCMA - 10/25/2022 12:49 PM EDT Sent [employer] message * Glory Sharma CPhT - 10/25/2022 12:49 PM EDT [facility] Will follow chart for next steps. Patient needs senior database engineer to prescribe Repatha documented in this encounter Plan of Treatment Upcoming Encounters Date Type Department Care Team (Late st Contact Info) Description 05/07/2024 1:00 PM EST Office Visit [facility] [address] [place] [phone] Juana Bailey APRN [address] [place] [id number] documented as of this encounter Goals Goal [...] on filedocumented in this encounter Care Teams Spectacle Truer Relationship Specialty Start Date End Date Juana Bailey APRN [address] [place] [address] PCP - General Nurse Practitioner-Family 08/29/22 documented as of this encounter
--- OUTSIDE RECORDS SUMMARY | 2024-03-23 10:55 | XMS_ITS | Encounter Summary ---
Author Organization [place] [address] Care Team Providers Care Catering Truck Operator Name Role Phone Juana Bailey APRN Primary Care Provider Reason for Visit * Reason Onset Date Comments Results 10/25/2022 IRIS Encounter Details Date Type Department Care Team (Late st Contact Info) Description 10/25/2022 Patient Outreach [facility] [address] [place] [address] Juana Bailey APRN [address] [place] [address] Results (IRIS) Social History Tobacco Use Types [...] eye exam and see eye doctor in [place]. Letter printed. Patient is aware that a letter/certified letter will be sent unless referral/appointment is scheduled and patient verbalized understanding. PCP notified. documented in this encounter Plan of Treatment Upcoming Encounters Date Type Department Care Team (Late st Contact Info) Description 05/07/2024 1:00 PM EST Office Visit [facility] [place] [facility] [address] [place] [phone] Jauna Bailey APRN [address] [place] [id number] documented as of this encounter Goals Goal [...] on filedocumented in this encounter Care Teams Catering Truck Operator Relationship Specialty Start Date End Date Junaa Bailey APRN [facility] [place] [address] PCP - General Nurse Practitioner-Family 08/29/22 documented as of this encounter
--- NOTE | 2024-03-23 11:02 | A.OFFVIS_ITS ---
[facility] Disclaimer: The information contained in this section may have been updated after the patient was seen, as this information can be updated by other users. 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 Today she rates her pain a 4 out of 10. Patient denies any new trauma or injury. She denies any new changes from her last visit. Patient does state from our last visit she did not officially get . Patient also states from her last visit her daughter is currently in the hospital so she has had a lot of stress related to this. Patient is currently managed with Percocet 10 mg 5 times a day and gabapentin 300 mg at bedtime. Patient was given a 3-month supply of her gabapentin and does not need refills of it at this time. She denies any side effects from this medication. Her Evans has been reviewed and is appropriate. Review of Systems: General: No recent weight changes, no fever, no sleep disturbances Respiratory: No cough, no shortness of air, no recurring pulmonary infections Cardiovascular/peripheral vascular: No chest pain, no palpitations, no edema, no shortness of breath Gastrointestinal: No new onset incontinence, normal bowel movements reported Genitourinary: No new onset incontinence Musculoskeletal: Low back pain Psychiatric: [Normal mood/affect] Neurological: [Denies weakness in extremities], [denies balance issues] Pain at rest (0-10 scale): 4 Objective Objective:: Physical Exam: General: Alert and oriented x3, no acute distress, pleasant and cooperative Lungs: Respirations even and unlabored, symmetrical chest expansion Eyes: PERRL Musculoskeletal: Flexion and extension of lumbar [spine] somewhat guarded secondary to pain, [antalgic gait noted] Neurological: Speech clear, no gross sensory deficit Has patient had previous pain injection?: No Conservative treatment options previously tried: Prescription medications Length of treatment: Longer than 12 weeks Meds Home Medications and Allergies Home Medications ?Medication ?Instructions ?Recorded ?Confirmed ?Type allopurinol 300 mg tablet 300 mg PO DAILY 01/28/24 03/23/24 History amoxicillin 875 mg tablet 875 mg PO Q12H #20 tabs 01/28/24 03/23/24 Rx benzonatate 100 mg capsule 100 mg PO TIDP PRN Cough #30 caps 01/28/24 03/23/24 Rx dapagliflozin propanediol 10 mg 10 mg PO DAILY 01/28/24 03/23/24 History tablet (Farxiga) ergocalciferol (vitamin D2) 1,250 1,250 mcg PO WEEKLY 01/28/24 03/23/24 History mcg (50,000 unit) capsule ezetimibe 10 mg tablet 10 mg PO DAILY 01/28/24 03/23/24 History flecainide 50 mg tablet 50 mg PO DAILY 01/28/24 03/23/24 History hydrochlorothiazide 25 mg tablet 25 mg PO DAILY 01/28/24 03/23/24 History loratadine 10 mg tablet 10 mg PO DAILY 01/28/24 03/23/24 History methylprednisolone 4 mg tablets in 4 mg PO DIRECTED 6 days #21 tabs 01/28/24 03/23/24 Rx a dose pack metoprolol tartrate 50 mg tablet 50 mg PO DAILY 01/28/24 03/23/24 History omeprazole 20 mg capsule,delayed 20 mg PO DAILY 01/28/24 03/23/24 History release trazodone 50 mg tablet 50 mg PO DAILY 01/28/24 03/23/24 History gabapentin 300 mg capsule 300 mg PO DAILY #30 caps 02/27/24 03/23/24 Rx oxycodone-acetaminophen 10 mg-325 1 tab PO 5XDAY #150 tabs 02/27/24 03/23/24 Rx mg tablet New Prescriptions to Start Prescriptions: Allergies Allergy/AdvReac Type Severity Reaction Status Date / Time No Known Allergies Allergy Verified 09/08/23 13:14 Assessment and Plan *Assessment and plan (1) Lumbar radiculopathy: Status: Acute Category: Medical Code(s): M54.16 - Radiculopathy, lumbar region (2) Degenerative disc disease, lumbar: Status: Acute Category: Medical Code(s): M51.36 - Other intervertebral disc degeneration, lumbar region Plan We will refill the patient's Percocet and provide a 1 month supply of this medication. Patient will return to clinic in 1 month. Risks and benefits of the medication have been explained in detail to the patient. The patient does understand the risk of dependence on the medication when given over a prolonged period. Patient has been advised of risks of oversedation with the prescribed medication. Narcan has been offered to the paitent in the event of oversedation. Patient has been advised that a family member should also be educated regarding administration of Narcan. The patient has been advised to consult with his/her primary care provider and pharmacist regarding drug-drug interaction of medications currently prescribed. Patient has been prescribed a controlled substance after being counseled on the medication, medication safety, and possible side effects. Opioid contract was reviewed and signed by the patient, and that they have agreed to all of the terms set forth by our compliance program. Patient has been instructed to contact the clinic with any concerns before the next appointment. Dr. Zelaya has reviewed this note and agrees with this plan of care. This note was dictated using voice recognition software and make contain errors or omissions.
[2024-03-23 11:23] VITALS: BP 108/79; PULSE 91; RESP 14; O2SAT 97; BMI 37.2
== END 2024-03-23 23:59 | disposition home or self-care (01) ==
PROVIDERS: PCP Nurse Practitioner; Visit Provider Nurse Practitioner Family
DX: M51.16 Intervertebral disc disorders with radiculopathy, lumbar region (principal)
CPT/HCPCS: 99212; G0463

== ENCOUNTER 2024-04-23 10:26 | Outpatient (POV) | payer OTHER, SELFPAY ==
--- NOTE | 2024-04-23 10:34 | A.OFFVIS_ITS ---
[facility] Disclaimer: The information contained in this section may have been updated after the patient was seen, as this information can be updated by other users. 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 Sleep apnea Hyperlipidemia Hypertension Atrial fibrillation Family History , RENOVATOR MACHINE OPERATOR) Family history of cancer Family history of diabetes mellitus type II Family history of myocardial infarction Social History Smoking Status: Never smoker second hand exposure: No alcohol intake: never substance use type: denies use current occupational status: other Travel in the last 8 weeks: None household members: spouse housing: house current occupational exposures/hazards: No caffeine: Yes PM Subjective & Objective Subjective Subjective:: Patient is a pleasant 53-year-old female who presents today for medication refill. Today she rates her pain a 8 out of 10. She does state that yesterday she did fall due to the ice. She denies any significant trauma or injury other than just being sore. She is managed with Percocet 10 mg 5 times a day and gabapentin 300 mg at bedtime. She denies any side effects from this medication. Her Evans has been reviewed and is appropriate. Review of Systems: General: No recent weight changes, no fever, no sleep disturbances Respiratory: No cough, no shortness of air, no recurring pulmonary infections Cardiovascular/peripheral vascular: No chest pain, no palpitations, no edema, no shortness of breath Gastrointestinal: No new onset incontinence, normal bowel movements reported Genitourinary: No new onset incontinence Musculoskeletal: Low back pain Psychiatric: [Normal mood/affect] Neurological: [Denies weakness in extremities], [denies balance issues] Pain at rest (0-10 scale): 8 Objective Objective:: Physical Exam: General: Alert and oriented x3, no acute distress, pleasant and cooperative Lungs: Respirations even and unlabored, symmetrical chest expansion Eyes: PERRL Musculoskeletal: Flexion and extension of lumbar [spine] somewhat guarded secondary to pain, [antalgic gait noted] Neurological: Speech clear, no gross sensory deficit Has patient had previous pain injection?: No Conservative treatment options previously tried: Prescription medications Length of treatment: Longer than 12 weeks Meds Home Medications and Allergies Home Medications ?Medication ?Instructions ?Recorded ?Confirmed ?Type allopurinol 300 mg tablet 300 mg PO DAILY 01/28/24 04/23/24 History amoxicillin 875 mg tablet 875 mg PO Q12H #20 tabs 01/28/24 04/23/24 Rx benzonatate 100 mg capsule 100 mg PO TIDP PRN Cough #30 caps 01/28/24 04/23/24 Rx dapagliflozin propanediol 10 mg 10 mg PO DAILY 01/28/24 04/23/24 History tablet (Farxiga) ergocalciferol (vitamin D2) 1,250 1,250 mcg PO WEEKLY 01/28/24 04/23/24 History mcg (50,000 unit) capsule ezetimibe 10 mg tablet 10 mg PO DAILY 01/28/24 04/23/24 History flecainide 50 mg tablet 50 mg PO DAILY 01/28/24 04/23/24 History hydrochlorothiazide 25 mg tablet 25 mg PO DAILY 01/28/24 04/23/24 History loratadine 10 mg tablet 10 mg PO DAILY 01/28/24 04/23/24 History methylprednisolone 4 mg tablets in 4 mg PO DIRECTED 6 days #21 tabs 01/28/24 04/23/24 Rx a dose pack metoprolol tartrate 50 mg tablet 50 mg PO DAILY 01/28/24 04/23/24 History omeprazole 20 mg capsule,delayed 20 mg PO DAILY 01/28/24 04/23/24 History release trazodone 50 mg tablet 50 mg PO DAILY 01/28/24 04/23/24 History gabapentin 300 mg capsule 300 mg PO DAILY #30 caps 02/27/24 04/23/24 Rx oxycodone-acetaminophen 10 mg-325 1 tab PO 5XDAY #150 tabs 04/03/24 04/23/24 Rx mg tablet New Prescriptions to Start Prescriptions: Allergies Allergy/AdvReac Type Severity Reaction Status Date / Time No Known Allergies Allergy Verified 09/08/23 13:14 Assessment and Plan *Assessment and plan (1) Lumbar radiculopathy: Status: Acute Category: Medical Code(s): M54.16 - Radiculopathy, lumbar region (2) Degenerative disc disease, lumbar: Status: Acute Category: Medical Code(s): M51.369 - Other intervertebral disc degeneration, lumbar region without mention of lumbar back pain or lower extremity pain Plan We will refill the patient's Percocet and provide a 1 month supply of this medication. Patient will return to clinic in 1 month for reevaluation of sym ptoms and plan of care. Risks and benefits of the medication have been explained in detail to the patient. The patient does understand the risk of dependence on the medication when given over a prolonged period. Patient has been advised of risks of oversedation with the prescribed medication. Narcan has been offered to the paitent in the event of oversedation. Patient has been advised that a family member should also be educated regarding administration of Narcan. The patient has been advised to consult with his/her primary care provider and pharmacist regarding drug-drug interaction of medications currently prescribed. Patient has been prescribed a controlled substance after being counseled on the medication, medication safety, and possible side effects. Opioid contract was reviewed and signed by the patient, and that they have agreed to all of the terms set forth by our compliance program. A UDS is needed to verify patient's compliance with our office pain contract. This is ordered based off specific treatments related to chronic pain with the potential to abuse certain medications. Patient has been instructed to contact the clinic with any concerns before the next appointment. Dr. Zelaya has reviewed this note and agrees with this plan of care. This note was dictated using voice recognition software and make contain errors or omissions.
[2024-04-23 10:49] VITALS: BP 104/75; PULSE 92; RESP 16; O2SAT 97; BMI 33.7
== END 2024-04-23 23:59 | disposition home or self-care (01) ==
PROVIDERS: PCP Nurse Practitioner; Visit Provider Nurse Practitioner Family
DX: M51.16 Intervertebral disc disorders with radiculopathy, lumbar region (principal)
CPT/HCPCS: 99212; G0463

== ENCOUNTER 2024-05-22 14:03 | Outpatient (POV) | payer OTHER, SELFPAY ==
--- NOTE | 2024-05-22 14:08 | A.OFFVIS_ITS ---
[facility] Disclaimer: The information contained in this section may have been updated after the patient was seen, as this information can be updated by other users. 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 Sleep apnea Hyperlipidemia Hypertension Atrial fibrillation Family History , SERVICE TEAM LEADER) Family history of cancer Family history of diabetes mellitus type II Family history of myocardial infarction Social History Smoking Status: Never smoker second hand exposure: No alcohol intake: never substance use type: denies use current occupational status: other Travel in the last 8 weeks: None household members: spouse housing: house current occupational exposures/hazards: No caffeine: Yes PM Subjective & Objective Subjective Subjective:: Patient is a pleasant 53-year-old female who presents today for medication refill and follow-up. She rates her pain today a 6 out of 10. She states she has had another fall from her last appointment. She states again it was related to the weather. She states she does not feel like it did anything significant. Patient does state however her chronic low back and hip pain does seem to be really aggravated and progressively worsening. Patient does state the pain is interfering with her ability perform activities of daily living such as cooking and cleaning and even sleeping. Patient has had injections in the past that have provided significant improvement. Patient states she is open to getting scheduled for additional. She is currently managed with Percocet 10 mg 5 times a day and gabapentin 300 mg at bedtime. She denies any side effects. Her Evans has been reviewed and is appropriate. Review of Systems: General: No recent weight changes, no fever, no sleep disturbances Respiratory: No cough, no shortness of air, no recurring pulmonary infections Cardiovascular/peripheral vascular: No chest pain, no palpitations, no edema, no shortness of breath Gastrointestinal: No new onset incontinence, normal bowel movements reported Genitourinary: No new onset incontinence Musculoskeletal: Low back pain, hip pain Psychiatric: [Normal mood/affect] Neurological: [Denies weakness in extremities], [denies balance issues] Pain at rest (0-10 scale): 6 Objective Objective:: Physical Exam: General: Alert and oriented x3, no acute distress, pleasant and cooperative Lungs: Respirations even and unlabored, symmetrical chest expansion Eyes: PERRL Musculoskeletal: Flexion and extension of lumbar [spine] somewhat guarded secondary to pain, [antalgic gait noted] point tenderness along bilateral SIs with positive bilateral Irina's, Cordell's, Gaenslen's, compression and distraction exam Neurological: Speech clear, no gross sensory deficit Has patient had previous pain injection?: No Conservative treatment options previously tried: Prescription medications Length of treatment: Longer than 12 weeks Meds Home Medications and Allergies Home Medications ?Medication ?Instructions ?Recorded ?Confirmed ?Type allopurinol 300 mg tablet 300 mg PO DAILY 01/28/24 05/22/24 History dapagliflozin propanediol 10 mg 10 mg PO DAILY 01/28/24 05/22/24 History tablet (Farxiga) ergocalciferol (vitamin D2) 1,250 1,250 mcg PO WEEKLY 01/28/24 05/22/24 History mcg (50,000 unit) capsule ezetimibe 10 mg tablet 10 mg PO DAILY 01/28/24 05/22/24 History flecainide 50 mg tablet 50 mg PO DAILY 01/28/24 05/22/24 History hydrochlorothiazide 25 mg tablet 25 mg PO DAILY 01/28/24 05/22/24 History loratadine 10 mg tablet 10 mg PO DAILY 01/28/24 05/22/24 History metoprolol tartrate 50 mg tablet 50 mg PO DAILY 01/28/24 05/22/24 History omeprazole 20 mg capsule,delayed 20 mg PO DAILY 01/28/24 05/22/24 History release trazodone 50 mg tablet 50 mg PO DAILY 01/28/24 05/22/24 History oxycodone-acetaminophen 10 mg-325 1 tab PO 5XDAY #150 tabs 04/23/24 05/22/24 Rx mg tablet gabapentin 300 mg capsule 300 mg PO DAILY #30 caps 05/22/24 Rx New Prescriptions to Start Prescriptions: gabapentin Roselia Ponce Allergies Allergy/AdvReac Type Severity Reaction Status Date / Time No Known Allergies Allergy Verified 05/22/24 14:20 Assessment and Plan *Assessment and plan (1) Bilateral sacroiliitis: Status: Acute Category: Medical Code(s): M46.1 - Sacroiliitis, not elsewhere classified Plan Patient is experiencing worsening pain along the low back and bilateral hips. They did have limited range of motion of the lumbar spine along with point tenderness along bilateral SI joints and a positive bilateral Irina's, Cordell's, Gaenslen's, compression and distraction exam. I did discuss with the patient t hat I do believe they would benefit from bilateral SI injections. Risk and benefits were discussed with the patient and they would like to proceed forward with this option. Patient has tried and failed conservative therapy including continued at home stretching exercise for longer than 12 weeks. Patient has had a longstanding history of chronic sacroiliitis for longer than 6 months. Patient did previously have her last SI injection back in September that did provide 80% improvement and has lasted more than 3 months. Patient did have improved function with decreased pain. Patient will be scheduled for bilateral SI injections under fluoroscopy. I will refill the patient's Percocets and verify that she does have refills on her gabapentin. Patient will return to clinic in 1 month for reevaluation of symptoms and plan of care. Risks and benefits of the medication have been explained in detail to the patient. The patient does understand the risk of dependence on the medication when given over a prolonged period. Patient has been advised of risks of oversedation with the prescribed medication. Narcan has been offered to the paitent in the event of oversedation. Patient has been advised that a family member should also be educated regarding administration of Narcan. The patient has been advised to consult with his/her primary care provider and pharmacist regarding drug-drug interaction of medications currently prescribed. Patient has been prescribed a controlled substance after being counseled on the medication, medication safety, and possible side effects. Opioid contract was reviewed and signed by the patient, and that they have agreed to all of the terms set forth by our compliance program. A UDS is needed to verify patient's compliance with our office pain contract. This is ordered based off specific treatments related to chronic pain with the potential to abuse certain medications. Patient has been instructed to contact the clinic with any concerns before the next appointment. Dr. Zelaya has reviewed this note and agrees with this plan of care. This note was dictated using voice recognition software and make contain errors or omissions.
[2024-05-22 14:18] VITALS: BP 150/94; PULSE 89; RESP 16; O2SAT 96; BMI 36.2
== END 2024-05-22 23:59 | disposition home or self-care (01) ==
PROVIDERS: PCP Nurse Practitioner; Visit Provider Nurse Practitioner Family
DX: M46.1 Sacroiliitis, not elsewhere classified (principal); Z73.89 Other problems related to life management difficulty
CPT/HCPCS: 99212; G0463

== ENCOUNTER 2024-06-18 09:03 | Emergency (ER) | payer OTHER, SELFPAY ==
[2024-06-18 09:10] VITALS: BP 111/75; PULSE 105; RESP 19; TEMP 37; O2SAT 96; BMI 36.6
[2024-06-18 09:37] LABS: Coronavirus 19, PCR Not Detected (NotDetected); Influenza A, PCR Not Detected (NotDetected); Influenza B, PCR Not Detected (NotDetected)
--- NOTE | 2024-06-18 09:42 | HMH.EDGENADL ---
Discharge Plan Disposition Patient Disposition: Home, Self-Care Prescriptions Prescriptions: New ibuprofen 800 mg tablet 800 mg PO TID PRN (Reason: pain) 7 Days Qty: 20 0RF fpphioercuqebis-iwesdqjoc-AM 2-30-10 mg/5 mL syrup 5 ml PO Q6H PRN (Reason: cold symptoms) 7 Days Qty: 118 0RF ondansetron 4 mg tablet,disintegrating 4 mg PO Q6H PRN (Reason: nausea and vomiting) 5 Days Qty: 20 0RF No Action trazodone 50 mg tablet 50 mg PO DAILY flecainide 50 mg tablet 50 mg PO DAILY metoprolol tartrate 50 mg tablet 50 mg PO DAILY omeprazole 20 mg capsule,delayed release(DR/EC) 20 mg PO DAILY allopurinol 300 mg tablet 300 mg PO DAILY hydrochlorothiazide 25 mg tablet 25 mg PO DAILY ergocalciferol (vitamin D2) 1,250 mcg (50,000 unit) capsule 1,250 mcg PO WEEKLY loratadine 10 mg tablet 10 mg PO DAILY ezetimibe 10 mg tablet 10 mg PO DAILY dapagliflozin propanediol [Farxiga] 10 mg tablet 10 mg PO DAILY gabapentin 300 mg capsule 300 mg PO DAILY Qty: 30 2RF oxycodone-acetaminophen 10-325 mg tablet 1 tab PO 5XDAY Qty: 150 0RF Referrals Follow up/Referrals: Juana Bailey APRN [Primary Care Provider] - See instructions Activity Restrictions/Add. Instructions Additional Instructions/Restrictions: Your symptoms are consistent with a flulike illness. As discussed with greater than 48 hours duration and no significant concern for complications you are not a candidate for antiviral therapy if you are in fact positive for the flu. Thus the treatment is supportive treating your symptoms. A prescription has been sent to your pharmacy for pain specifically her headaches, cough, as well as a nausea medicine in the event that you do develop nausea which we have seen a lot with circulating viruses. Please keep self well-hydrated with sugar and salt containing fluids such as Gatorade or Powerade. They should be self-limiting meaning it should go away on its own within several days. Return with any significant worsening or other concerns Clinical Impressions Clinical Impression: Flu-like symptoms Print Language Print Language: Danish Discharge ED Provider: Rosita Stanford General Adult HPI General Chief complaint: Upper Respiratory Infection Stated complaint: headache, congestion, chills X 3 days Time Seen by Provider: 06/18/24 09:35 Mode of Arrival: Ambulatory Source of Information: Patient Description of Symptoms (Recalled from ER Triage Doc. by RN): pt presents to ED with c/o cough, congestion, body aches, headache. symptoms began 3 days ago. History of Present Illness HPI narrative: Patient is a 53-year-old without any significant comorbidities but does take chronic opiates for a back injury she sustained many years ago presents today with cough body aches headache congestion she is on day 3 of symptoms. Denies any heart or lung underlying issues or other any significant comorbidities. Related Data Home Medications ?Medication ?Instructions ?Recorded ?Confirmed allopurinol 300 mg tablet 300 mg PO DAILY 01/28/24 05/22/24 dapagliflozin propanediol 10 mg 10 mg PO DAILY 01/28/24 05/22/24 tablet (Farxiga) ergocalciferol (vitamin D2) 1,250 1,250 mcg PO WEEKLY 01/28/24 05/22/24 mcg (50,000 unit) capsule ezetimibe 10 mg tablet 10 mg PO DAILY 01/28/24 05/22/24 flecainide 50 mg tablet 50 mg PO DAILY 01/28/24 05/22/24 hydrochlorothiazide 25 mg tablet 25 mg PO DAILY 01/28/24 05/22/24 loratadine 10 mg tablet 10 mg PO DAILY 01/28/24 05/22/24 metoprolol tartrate 50 mg tablet 50 mg PO DAILY 01/28/24 05/22/24 omeprazole 20 mg capsule,delayed 20 mg PO DAILY 01/28/24 05/22/24 release trazodone 50 mg tablet 50 mg PO DAILY 01/28/24 05/22/24 Previous Rx's ?Medication ?Instructions ?Recorded gabapentin 300 mg capsule 300 mg PO DAILY #30 caps 05/22/24 oxycodone-acetaminophen 10 mg-325 1 tab PO 5XDAY #150 tabs 05/22/24 mg tablet ujzgtvoqihmvqqh-kyaedofmvnonbrq-IA 5 ml PO Q6H PRN cold symptoms 7 06/18/24 2 mg-30 mg-10 mg/5 mL oral syrup days #118 mL ibuprofen 800 mg tablet 800 mg PO TID PRN pain 7 days #20 06/18/24 tabs ondansetron 4 mg disintegrating 4 mg PO Q6H PRN nausea and 06/18/24 tablet vomiting 5 days #20 tabs Allergies Allergy/AdvReac Type Severity Reaction Status Date / Time No Known Allergies Allergy Verified 05/22/24 14:20 [facility] Disclaimer: The information contained in this section may have been updated after the patient was seen, as this information can be updated by other users. 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) Family history of cancer Family history of diabetes mellitus type II Family history of myocardial infarction Social History Smoking Status: Former smoker tobacco type: smokeless tobacco second hand exposure: No alcohol intake: never substance use type: denies use current occupational status: other Travel in the last 8 weeks: None household members: spouse housing: house current occupational exposures/hazards: No caffeine: Yes Have you lived/traveled outside [place] in past 30 days?: No Contact w/someone who lives/traveled outside [place] past 30 days?: No Exposure to someone with infectious disease in past 14 days?: No Do you have a fever (greater than 100.4 F or 38 C)?: No Have you tested positive for COVID-19: No Exposed to someone with COVID-19 in past 14 days?: No Do you have a sore throat?: No Do you have a cough?: No Do you have any weakness?: No Do you have any diarrhea?: No Are you experiencing any unusual bleeding?: No Do you have any muscle aches/pain?: No Do you have any abdominal pain?: No Are you experiencing loss of taste or smell?: No Other 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 Have you received the Flu Vaccine for this season: No Have you received the Pneumonia Vaccine: No ROS Obtained: Yes All systems reviewed & no additional complaints except as documented Physical Exam General General appearance: alert and in no apparent distress Respiratory Respiratory exam: Present normal lung sounds bilaterally and other (Oxygen saturation is 99% on room air); Absent respiratory distress, wheezes, stridor, accessory muscle use or prolonged expiratory phase Cardiovascular Cardiovascular exam: Present regular rate and normal rhythm Neurological Exam Neurological exam: Present alert and oriented X3 Medical Decision Making Medical Records Screening: Per USPSTF and CDC recommendations, given the prevalence of disease in our region, it is our hospital?s policy to screen for HIV and viral Hepatitis for all patients aged 18 and over and those with ongoing risk factors. Evans Inquiry Pt receiving controlled substance: No Vital Signs: 06/18/24 09:10 Temperature 98.6 F Temperature Source Oral Pulse Rate [Left Radial] 105 H Respiratory Rate 19 Blood Pressure [Right Arm] 111/75 Blood Pressure Mean [Right Arm] 87 02 Sat by Pulse Oximetry 96 Oxygen Delivery Method Room Air Orders (Tests/Meds): ORDERS Category Date Time Status HIV Combo Stat Lab 06/18/24 09:13 Ordered Hepatitis C Ab Qual. W/ RFX Stat Lab 06/18/24 09:13 Ordered Rapid PCR Covid and Flu A/B Stat Lab 06/18/24 09:00 Received Medical Decision Narrative: Nontoxic 53-year-old with an objectively normal exam from a cardiovascular standpoint normal respiratory effort normal oxygen saturations no focal adventitious lung sounds presents today with viral/flulike symptoms. She is on day 3 therefore she would not be a candidate for antiviral therapy if she is also not high risk from a comorbidity standpoint. Does treatment for her presentation will be supportive. I do not believe that she needs blood tests IV fluids chest x-ray etc. Prescription sent to her pharmacy return precautions emphasized was discharged in stable condition. Critical Care Critical Care Time Critical Care Time: No
[2024-06-18 09:48] VITALS: BP 117/79; PULSE 99; RESP 18; TEMP 37; O2SAT 99
== END 2024-06-18 09:46 | disposition home or self-care (01) ==
PROVIDERS: Emergency Provider Student in an Organized Health Care Education/Training Program; PCP Nurse Practitioner
DX: J11.1 Influenza due to unidentified influenza virus with other respiratory manifestations (principal)
CPT/HCPCS: 87636; 99283

== ENCOUNTER 2024-06-23 13:06 | Day surgery (SDC) | payer OTHER, SELFPAY ==
[2024-06-23 13:15] VITALS: BP 112/75; PULSE 89; RESP 16; TEMP 36.6; O2SAT 93; BMI 36.8
--- NOTE | 2024-06-23 13:24 | P.PCN_ITS ---
Procedure Date: 06/23/24 Time: 13:00 Anesthesiologist:: Kyle Flores CRNA Complications:: None Pre-procedure Diagnosis:: Bilateral sacroiliitis Post-procedure Diagnosis:: Same Indications for Procedure:: Patient is a very pleasant 53-year-old female who comes to our clinic today for bilateral sacroiliac joint injection of cortisone and local anesthetic. Patient describes low lumbar back pain off midline bilaterally. Bilateral posterior hip pain. Difficulty transitioning from sitting to standing. Pain intensifies with ambulation and/or sitting. She rates her pain 7/10. Procedure Details:: Procedure: Bilateral sacroiliac joint injections under fluoroscopy Informed consent was obtained and the risks and benefits of the procedure were explained to the patient.~ The patient was taken to the procedure room and noninvasive monitors were placed including a noninvasive blood pressure cuff and pulse oximeter.~ The patient was placed prone on the procedure table. Both hips were cleansed using Betadine as a cleansing solution. C-arm fluoroscopy was used to view the right sacroiliac joint.~ The skin and subcutaneous tissues were anesthetized using lidocaine 1.5% and a 25-gauge needle.~ After this, a 22-gauge spinal needle was inserted under fluoroscopic guidance into the inferior aspect of the right sacroiliac joint.~ Omnipaque dye was injected and good spread was seen throughout the joint.~ After this, approximately 5 mL of bupivacaine, 0.25% and Depo-Medrol, 40 mg was incrementally injected into the right sacroiliac joint. We then moved to the left sacroiliac joint.~ The skin and subcutaneous tissues were anesthetized using lidocaine 1.5% and a 25-gauge needle.~ After this, a 22- gauge spinal needle was inserted under fluoroscopic guidance into the inferior aspect of the left sacroiliac joint.~ Omnipaque dye was injected and good spread was seen throughout the joint. After this, approximately 5 mL of bupivacaine, 0.25% and Depo-Medrol, 40 mg was incrementally injected into the left sacroiliac joint.~ The patient tolerated the procedure well with no complications. The patient was observed in the Pain Clinic and then was discharged home neurologically intact. Plan and Disposition:: Patient was discharged without incident.
[2024-06-23 13:27] VITALS: BP 123/76; PULSE 90; RESP 16; O2SAT 95
[2024-06-23] MEDS: BUPIVACAINE 0.25% 10ML INJ 25 MG IJ (14:43)
[2024-06-23] MEDS: LIDOCAINE 1% 5ML PF VIAL 5 ML (14:43)
[2024-06-23 14:44] VITALS: BP 127/77; PULSE 89; RESP 18; O2SAT 96
[2024-06-23] MEDS: methylPREDNISolone ACETATE 80MG/ML VIAL 80 MG (14:44)
[2024-06-23 14:45] VITALS: BP 127/77; PULSE 89; RESP 18; O2SAT 96
== END 2024-06-23 13:27 | disposition home or self-care (01) ==
PROVIDERS: PCP Nurse Practitioner; Visit Provider Nurse Anesthetist, Certified Registered
DX: M46.1 Sacroiliitis, not elsewhere classified (principal)
CPT/HCPCS: 27096; G0260; J1010

== ENCOUNTER 2024-06-25 13:11 | Outpatient (POV) | payer OTHER, SELFPAY ==
[2024-06-25 14:01] VITALS: BP 132/86; BP 142/84; PULSE 87; RESP 16; O2SAT 98; BMI 36.4
--- NOTE | 2024-06-25 14:11 | EXP.PAIN.SOA ---
[facility] Disclaimer: The information contained in this section may have been updated after the patient was seen, as this information can be updated by other users. 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) Family history of cancer Family history of diabetes mellitus type II Family history of myocardial infarction Social History Smoking Status: Former smoker tobacco type: smokeless tobacco second hand exposure: No alcohol intake: never substance use type: denies use current occupational status: other Travel in the last 8 weeks: None household members: spouse housing: house current occupational exposures/hazards: No caffeine: Yes PM Subjective & Objective Subjective Subjective:: Patient is a pleasant 53-year-old female who presents today for follow-up of bilateral SI injections on 06/23/2024 and medication refill. Today she rates her pain a 0 out of 10. She states that she has had 100% improvement following that injection and it is still working well. Patient denies any other changes. She is currently managed with Percocet 10 mg 5 times a day and gabapentin 300 mg at bedtime. She denies any side effects. Her Evans has been reviewed and is appropriate. Review of Systems: General: No recent weight changes, no fever, no sleep disturbances Respiratory: No cough, no shortness of air, no recurring pulmonary infections Cardiovascular/peripheral vascular: No chest pain, no palpitations, no edema, no shortness of breath Gastrointestinal: No new onset incontinence, normal bowel movements reported Genitourinary: No new onset incontinence Musculoskeletal: Low back pain Psychiatric: [Normal mood/affect] Neurological: [Denies weakness in extremities], [denies balance issues] Pain at rest (0-10 scale): 0 Objective Objective:: Physical Exam: General: Alert and oriented x3, no acute distress, pleasant and cooperative Lungs: Respirations even and unlabored, symmetrical chest expansion Eyes: PERRL Musculoskeletal: Flexion and extension of lumbar [spine] within normal limits Neurological: Speech clear, no gross sensory deficit Has patient had previous pain injection?: Yes Percent improvement in pain since last injection: 100% Conservative treatment options previously tried: Home exercise plan Length of treatment: Longer than 12 weeks Meds Home Medications and Allergies Home Medications ?Medication ?Instructions ?Recorded ?Confirmed ?Type allopurinol 300 mg tablet 300 mg PO DAILY 01/28/24 06/25/24 History dapagliflozin propanediol 10 mg 10 mg PO DAILY 01/28/24 06/25/24 History tablet (Farxiga) ergocalciferol (vitamin D2) 1,250 1,250 mcg PO WEEKLY 01/28/24 06/25/24 History mcg (50,000 unit) capsule ezetimibe 10 mg tablet 10 mg PO DAILY 01/28/24 06/25/24 History flecainide 50 mg tablet 50 mg PO DAILY 01/28/24 06/25/24 History hydrochlorothiazide 25 mg tablet 25 mg PO DAILY 01/28/24 06/25/24 History loratadine 10 mg tablet 10 mg PO DAILY 01/28/24 06/25/24 History metoprolol tartrate 50 mg tablet 50 mg PO DAILY 01/28/24 06/25/24 History omeprazole 20 mg capsule,delayed 20 mg PO DAILY 01/28/24 06/25/24 History release trazodone 50 mg tablet 50 mg PO DAILY 01/28/24 06/25/24 History gabapentin 300 mg capsule 300 mg PO DAILY #30 caps 05/22/24 06/25/24 Rx oxycodone-acetaminophen 10 mg-325 1 tab PO 5XDAY #150 tabs 05/22/24 06/25/24 Rx mg tablet bccitqtdvrskezd-crzuvsmveswylhl-ZY 5 ml PO Q6H PRN cold symptoms 7 06/18/24 06/25/24 Rx 2 mg-30 mg-10 mg/5 mL oral syrup days #118 mL ibuprofen 800 mg tablet 800 mg PO TID PRN pain 7 days #20 06/18/24 06/25/24 Rx tabs ondansetron 4 mg disintegrating 4 mg PO Q6H PRN nausea and 06/18/24 06/25/24 Rx tablet vomiting 5 days #20 tabs New Prescriptions to Start Prescriptions: Allergies Allergy/AdvReac Type Severity Reaction Status Date / Time No Known Allergies Allergy Verified 05/22/24 14:20 Assessment and Plan *Assessment and plan (1) Bilateral sacroiliitis: Status: Acute Category: Medical Code(s): M46.1 - Sacroiliitis, not elsewhere classified Plan Patient has had significant improvement following her SI injections and does not require any additional injection therapy at this time. Patient will return to clinic in 1 month for medication refill. We will refill her Percocet and gabapentin. Risks and benefits of the medication have been explained in detail to the patient. The patient does understand the risk of dependence on the medication when given over a prolonged period. Patient has been advised of risks of oversedation with the prescribed medication. Narcan has been offered to the paitent in the event of oversedation. Patient has been advised that a family member should also be educated regarding administration of Narcan. The patient has been advised to consult with his/her primary care provider and pharmacist regarding drug-drug interaction of medications currently prescribed. Patient has been prescribed a controlled substance after being counseled on the medication, medication safety, and possible side effects. Opioid contract was reviewed and signed by the patient, and that they have agreed to all of the terms set forth by our compliance program. A UDS is needed to verify patient's compliance with our office pain contract. This is ordered based off specific treatments related to chronic pain with the potential to abuse certain medications. Patient has been instructed to contact the clinic with any concerns before the next appointment. Dr. Zelaya has reviewed this note and agrees with this plan of care. This note was dictated using voice recognition software and make contain errors or omissions.
== END 2024-06-25 23:59 | disposition home or self-care (01) ==
PROVIDERS: Visit Provider Nurse Practitioner Family
DX: M46.1 Sacroiliitis, not elsewhere classified (principal); Z87.891 Personal history of nicotine dependence
CPT/HCPCS: 99212; G0463

== ENCOUNTER 2024-07-23 09:03 | Outpatient (POV) | payer OTHER, SELFPAY ==
--- NOTE | 2024-07-23 09:27 | A.OFFVIS_ITS ---
[facility] Disclaimer: The information contained in this section may have been updated after the patient was seen, as this information can be updated by other users. 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 Patient rates her pain today a 4 out of 10. She denies any new trauma or injury. She states overall she is doing well with her current medicines. Patient is currently prescribed Percocet 10 mg 5 times a day and gabapentin 300 mg at bedtime. She denies any side effects. Her Evans has been reviewed and is appropriate. Review of Systems: General: No recent weight changes, no fever, no sleep disturbances Respiratory: No cough, no shortness of air, no recurring pulmonary infections Cardiovascular/peripheral vascular: No chest pain, no palpitations, no edema, no shortness of breath Gastrointestinal: No new onset incontinence, normal bowel movements reported Genitourinary: No new onset incontinence Musculoskeletal: Low back pain Psychiatric: [Normal mood/affect] Neurological: [Denies weakness in extremities], [denies balance issues] Pain at rest (0-10 scale): 4 Objective Objective:: Physical Exam: General: Alert and oriented x3, no acute distress, pleasant and cooperative Lungs: Respirations even and unlabored, symmetrical chest expansion Eyes: PERRL Musculoskeletal: Flexion and extension of lumbar [spine] somewhat guarded seco ndary to pain, [antalgic gait noted] Neurological: Speech clear, no gross sensory deficit Has patient had previous pain injection?: No Conservative treatment options previously tried: Home exercise plan Length of treatment: Longer than 12 weeks Meds Home Medications and Allergies Home Medications ?Medication ?Instructions ?Recorded ?Confirmed ?Type allopurinol 300 mg tablet 300 mg PO DAILY 01/28/24 06/25/24 History dapagliflozin propanediol 10 mg 10 mg PO DAILY 01/28/24 06/25/24 History tablet (Farxiga) ergocalciferol (vitamin D2) 1,250 1,250 mcg PO WEEKLY 01/28/24 06/25/24 History mcg (50,000 unit) capsule ezetimibe 10 mg tablet 10 mg PO DAILY 01/28/24 06/25/24 History flecainide 50 mg tablet 50 mg PO DAILY 01/28/24 06/25/24 History hydrochlorothiazide 25 mg tablet 25 mg PO DAILY 01/28/24 06/25/24 History loratadine 10 mg tablet 10 mg PO DAILY 01/28/24 06/25/24 History metoprolol tartrate 50 mg tablet 50 mg PO DAILY 01/28/24 06/25/24 History omeprazole 20 mg capsule,delayed 20 mg PO DAILY 01/28/24 06/25/24 History release trazodone 50 mg tablet 50 mg PO DAILY 01/28/24 06/25/24 History gabapentin 300 mg capsule 300 mg PO DAILY #30 caps 05/22/24 06/25/24 Rx ncxbitotddfvzoo-pewjaropwaaqurn-TO 5 ml PO Q6H PRN cold symptoms 7 06/18/24 06/25/24 Rx 2 mg-30 mg-10 mg/5 mL oral syrup days #118 mL ibuprofen 800 mg tablet 800 mg PO TID PRN pain 7 days #20 06/18/24 06/25/24 Rx tabs ondansetron 4 mg disintegrating 4 mg PO Q6H PRN nausea and 06/18/24 06/25/24 Rx tablet vomiting 5 days #20 tabs oxycodone-acetaminophen 10 mg-325 1 tab PO 5XDAY #150 tabs 06/25/24 Rx mg tablet New Prescriptions to Start Prescriptions: Allergies Allergy/AdvReac Type Severity Reaction Status Date / Time No Known Allergies Allergy Verified 05/22/24 14:20 Assessment and Plan *Assessment and plan (1) Lumbar radiculopathy: Status: Acute Category: Medical Code(s): M54.16 - Radiculopathy, lumbar region (2) Degenerative disc disease, lumbar: Status: Acute Category: Medical Code(s): M51.369 - Other intervertebral disc degeneration, lumbar region without mention of lumbar back pain or lower extremity pain Plan I will refill the patient's Percocet and gabapentin and provide a 1 month supply of this medication. Patient will return to clinic in 1 month. Risks and benefits of the medication have been explained in detail to the patient. The patient does understand the risk of dependence on the medication when given over a prolonged period. Patient has been advised of risks of oversedation with the prescribed medication. Narcan has been offered to the paitent in the event of ov ersedation. Patient has been advised that a family member should also be educated regarding administration of Narcan. The patient has been advised to consult with his/her primary care provider and pharmacist regarding drug-drug interaction of medications currently prescribed. Patient has been prescribed a controlled substance after being counseled on the medication, medication safety, and possible side effects. Opioid contract was reviewed and signed by the patient, and that they have agreed to all of the terms set forth by our compliance program. A UDS is needed to verify patient's compliance with our office pain contract. This is ordered based off specific treatments related to chronic pain with the potential to abuse certain medications. Patient has been instructed to contact the clinic with any concerns before the next appointment. Dr. Zelaya has reviewed this note and agrees with this plan of care. This note was dictated using voice recognition software and make contain errors or omissions.
[2024-07-23 10:04] VITALS: BP 103/69; PULSE 82; RESP 16; O2SAT 96; BMI 33.3
== END 2024-07-23 23:59 | disposition home or self-care (01) ==
PROVIDERS: PCP Nurse Practitioner; Visit Provider Nurse Practitioner Family
DX: M51.16 Intervertebral disc disorders with radiculopathy, lumbar region (principal); Z87.891 Personal history of nicotine dependence
CPT/HCPCS: 99212; G0463

== ENCOUNTER 2024-08-17 09:47 | Outpatient (POV) | payer OTHER, SELFPAY ==
--- NOTE | 2024-08-17 10:04 | EXP.PAIN.SOA ---
[facility] Disclaimer: The information contained in this section may have been updated after the patient was seen, as this information can be updated by other users. 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 Today she rates her pain a 3 out of 10. She states overall she is still doing well and denies any new falls or injuries. She is currently managed with Percocet 10 mg 5 times a day and gabapentin 300 mg at bedtime. She denies any side effects. Her Evans has been reviewed and is appropriate. Review of Systems: General: No recent weight changes, no fever, no sleep disturbances Respiratory: No cough, no shortness of air, no recurring pulmonary infections Cardiovascular/peripheral vascular: No chest pain, no palpitations, no edema, no shortness of breath Gastrointestinal: No new onset incontinence, normal bowel movements reported Genitourinary: No new onset incontinence Musculoskeletal: Chronic back pain Psychiatric: [Normal mood/affect] Neurological: [Denies weakness in extremities], [denies balance issues] Pain at rest (0-10 scale): 3 Objective Objective:: Physical Exam: General: Alert and oriented x3, no acute distress, pleasant and cooperative Lungs: Respirations even and unlabored, symmetrical chest expansion Eyes: PERRL Musculoskeletal: Flexion and extension of lumbar [spine] somewhat guarded secondary to pain, [antalgic gait noted] Neurological: Speech clear, no gross sensory deficit Has patient had previous pain injection?: No Conservative treatment options previously tried: Home exercise plan Length of treatment: Longer than 12 weeks Meds Home Medications and Allergies Home Medications ?Medication ?Instructions ?Recorded ?Confirmed ?Type allopurinol 300 mg tablet 300 mg PO DAILY 01/28/24 07/23/24 History dapagliflozin propanediol 10 mg 10 mg PO DAILY 01/28/24 07/23/24 History tablet (Farxiga) ergocalciferol (vitamin D2) 1,250 1,250 mcg PO WEEKLY 01/28/24 07/23/24 History mcg (50,000 unit) capsule ezetimibe 10 mg tablet 10 mg PO DAILY 01/28/24 07/23/24 History flecainide 50 mg tablet 50 mg PO DAILY 01/28/24 07/23/24 History hydrochlorothiazide 25 mg tablet 25 mg PO DAILY 01/28/24 07/23/24 History loratadine 10 mg tablet 10 mg PO DAILY 01/28/24 07/23/24 History metoprolol tartrate 50 mg tablet 50 mg PO DAILY 01/28/24 07/23/24 History omeprazole 20 mg capsule,delayed 20 mg PO DAILY 01/28/24 07/23/24 History release trazodone 50 mg tablet 50 mg PO DAILY 01/28/24 07/23/24 History gabapentin 300 mg capsule 300 mg PO DAILY #30 caps 05/22/24 07/23/24 Rx sgtpwphcsnzyqzz-tydiycojrhoqqur-WF 5 ml PO Q6H PRN cold symptoms 7 06/18/24 07/23/24 Rx 2 mg-30 mg-10 mg/5 mL oral syrup days #118 mL ibuprofen 800 mg tablet 800 mg PO TID PRN pain 7 days #20 06/18/24 07/23/24 Rx tabs ondansetron 4 mg disintegrating 4 mg PO Q6H PRN nausea and 06/18/24 07/23/24 Rx tablet vomiting 5 days #20 tabs oxycodone-acetaminophen 10 mg-325 1 tab PO 5XDAY #150 tabs 07/23/24 Rx mg tablet New Prescriptions to Start Prescriptions: Allergies Allergy/AdvReac Type Severity Reaction Status Date / Time No Known Allergies Allergy Verified 05/22/24 14:20 Assessment and Plan *Assessment and plan (1) Degenerative disc disease, lumbar: Status: Acute Category: Medical Code(s): M51.369 - Other intervertebral disc degeneration, lumbar region without mention of lumbar back pain or lower extremity pain (2) Lumbar radiculopathy: Status: Acute Category: Medical Code(s): M54.16 - Radiculopathy, lumbar region Plan I will refill her Percocet and gabapentin and provide a 1 month supply of these medications. Patient will return to clinic in 1 month For reevaluation of symptoms and plan of care. Risks and benefits of the medication have been explained in detail to the patient. The patient does understand the risk of dependence on the medication when given over a prolonged period. Patient has been advised of risks of oversedation with the prescribed medication. Narcan has been offered to the paitent in the event of oversedation. Patient has been advised that a family member should also be educated regarding administration of Narcan. The patient has been advised to consult with his/her primary care provider and pharmacist regarding drug-drug interaction of medications currently prescribed. Patient has been prescribed a controlled substance after being counseled on the medication, medication safety, and possible side effects. Opioid contract was reviewed and signed by the patient, and that they have agreed to all of the terms set forth by our compliance program. A UDS is needed to verify patient's compliance with our office pain contract. This is ordered based off specific treatments related to chronic pain with the potential to abuse certain medications. Patient has been instructed to contact the clinic with any concerns before the next appointment. Dr. Zelaya has reviewed this note and agrees with this plan of care. This note was dictated using voice recognition software and make contain errors or omissions.
[2024-08-17 10:32] VITALS: BP 112/74; PULSE 89; RESP 14; O2SAT 97; BMI 33.3
== END 2024-08-17 23:59 | disposition home or self-care (01) ==
PROVIDERS: PCP Nurse Practitioner; Visit Provider Nurse Practitioner Family
DX: M51.16 Intervertebral disc disorders with radiculopathy, lumbar region (principal); Z87.891 Personal history of nicotine dependence
CPT/HCPCS: 99212; G0463

== ENCOUNTER 2024-09-16 09:07 | Outpatient (POV) | payer OTHER, SELFPAY ==
[2024-09-16 10:01] VITALS: BP 98/58; PULSE 84; RESP 18; O2SAT 97; BMI 34.1
--- NOTE | 2024-09-16 10:06 | EXP.PAIN.SOA ---
[facility] Disclaimer: The information contained in this section may have been updated after the patient was seen, as this information can be updated by other users. 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 (Reviewed 09/08/23 @ 13:25 by Antonino Sanchez ([facility]) History of back pain Sleep apnea Hyperlipidemia Hypertension Atrial fibrillation Family History (Reviewed 09/08/23 @ 13:25 by Antonino Sanchez ([facility]) Family history of cancer Family history of diabetes mellitus type II Family history of myocardial infarction Social History Smoking Status: Former smoker tobacco type: smokeless tobacco second hand exposure: No alcohol intake: never substance use type: denies use current occupational status: other Travel in the last 8 weeks?: None household members: spouse housing: house current occupational exposures/hazards: No caffeine: Yes PM Subjective & Objective Subjective Subjective:: Patient is a pleasant 54-year-old female who presents today for medication refill and follow-up. Today she rates her pain a 3 out of 10. Patient denies any new falls or changes from her last appointment. Patient is currently managed with Percocet 10 mg 5 times a day and gabapentin 300 mg at bedtime. She denies any side effects or changes to her pharmacy. Her Evans has been reviewed and is appropriate. Review of Systems: General: No recent weight changes, no fever, no sleep disturbances Respiratory: No cough, no shortness of air, no recurring pulmonary infections Cardiovascular/peripheral vascular: No chest pain, no palpitations, no edema, no shortness of breath Gastrointestinal: No new onset incontinence, normal bowel movements reported Genitourinary: No new onset incontinence Musculoskeletal: Low back pain Psychiatric: [Normal mood/affect] Neurological: [Denies weakness in extremities], [denies balance issues] Pain at rest (0-10 scale): 3 Objective Objective:: Physical Exam: General: Alert and oriented x3, no acute distress, pleasant and cooperative Lungs: Respirations even and unlabored, symmetrical chest expansion Eyes: PERRL Musculoskeletal: Flexion and extension of lumbar [spine] somewhat guarded secondary to pain, [antalgic gait noted] Neurological: Speech clear, no gross sensory deficit Has patient had previous pain injection?: No Conservative treatment options previously tried: Prescription medications Length of treatment: Longer than 12 weeks Meds Home Medications and Allergies Home Medications ?Medication ?Instructions ?Recorded ?Confirmed ?Type allopurinol 300 mg tablet 300 mg PO DAILY 01/28/24 08/17/24 History dapagliflozin propanediol 10 mg 10 mg PO DAILY 01/28/24 08/17/24 History tablet (Farxiga) ergocalciferol (vitamin D2) 1,250 1,250 mcg PO WEEKLY 01/28/24 08/17/24 History mcg (50,000 unit) capsule ezetimibe 10 mg tablet 10 mg PO DAILY 01/28/24 08/17/24 History flecainide 50 mg tablet 50 mg PO DAILY 01/28/24 08/17/24 History hydrochlorothiazide 25 mg tablet 25 mg PO DAILY 01/28/24 08/17/24 History loratadine 10 mg tablet 10 mg PO DAILY 01/28/24 08/17/24 History metoprolol tartrate 50 mg tablet 50 mg PO DAILY 01/28/24 08/17/24 History omeprazole 20 mg capsule,delayed 20 mg PO DAILY 01/28/24 08/17/24 History release trazodone 50 mg tablet 50 mg PO DAILY 01/28/24 08/17/24 History gdjsdjqnkzvbouc-lcsqfcwozsehbbi-CO 5 ml PO Q6H PRN cold symptoms 7 06/18/24 08/17/24 Rx 2 mg-30 mg-10 mg/5 mL oral syrup days #118 mL ibuprofen 800 mg tablet 800 mg PO TID PRN pain 7 days #20 06/18/24 08/17/24 Rx tabs ondansetron 4 mg disintegrating 4 mg PO Q6H PRN nausea and 06/18/24 08/17/24 Rx tablet vomiting 5 days #20 tabs gabapentin 300 mg capsule 300 mg PO DAILY #30 caps 08/17/24 Rx oxycodone-acetaminophen 10 mg-325 1 tab PO 5XDAY #150 tabs 08/17/24 Rx mg tablet New Prescriptions to Start Prescriptions: Allergies Allergy/AdvReac Type Severity Reaction Status Date / Time No Known Allergies Allergy Verified 05/22/24 14:20 Assessment and Plan *Assessment and plan (1) Degenerative disc disease, lumbar: Status: Acute Category: Medical Code(s): M51.369 - Other intervertebral disc degeneration, lumbar region without mention of lumbar back pain or lower extremity pain Plan I will refill the patient's Percocet and gabapentin and provide a 1 month supply of these medications. Patient will return to clinic in 1 month for reevaluation of symptoms and plan of care. Risks and benefits of the medication have been explained in detail to the patient. The patient does understand the risk of dependence on the medication when given over a prolonged period. Patient has been advised of risks of oversedation with the prescribed medication. Narcan has been offered to the paitent in the event of oversedation. Patient has been advised that a family member should also be educated regarding administration of Narcan. The patient has been advised to consult with his/her primary care provider and pharmacist regarding drug-drug interaction of medications currently prescribed. Patient has been prescribed a controlled substance after being counseled on the medication, medication safety, and possible side effects. Opioid contract was reviewed and signed by the patient, and that they have agreed to all of the terms set forth by our compliance program. A UDS is needed to verify patient's compliance with our office pain contract. This is ordered based off specific treatments related to chronic pain with the potential to abuse certain medications. Patient has been instructed to contact the clinic with any concerns before the next appointment. Dr. Zelaya has reviewed this note and agrees with this plan of care. This note was dictated using voice recognition software and make contain errors or omissions.
== END 2024-09-16 23:59 | disposition home or self-care (01) ==
PROVIDERS: PCP Nurse Practitioner; Visit Provider Nurse Practitioner Family
DX: M51.360 Other intervertebral disc degeneration, lumbar region with discogenic back pain only (principal); Z79.891 Long term (current) use of opiate analgesic; Z79.899 Other long term (current) drug therapy
CPT/HCPCS: 99212; G0463

== ENCOUNTER → 2024-10-19 13:03 | Day surgery (SDC) | payer OTHER, SELFPAY ==
[2024-10-19 13:47] VITALS: BP 106/69; PULSE 83; RESP 94; O2SAT 94; BMI 35.4
--- NOTE | 2024-10-19 13:55 | EXP.PAIN.SOA ---
[facility] Disclaimer: The information contained in this section may have been updated after the patient was seen, as this information can be updated by other users. 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 , [employer]) History of back pain Sleep apnea Hyperlipidemia Hypertension Atrial fibrillation Family History , [employer]) Family history of cancer Family history of diabetes mellitus type II Family history of myocardial infarction Social History Smoking Status: Former smoker tobacco type: smokeless tobacco second hand exposure: No alcohol intake: never substance use type: denies use current occupational status: other Travel in the last 8 weeks?: None household members: spouse housing: house current occupational exposures/hazards: No caffeine: Yes Have you lived/traveled outside [place] in past 30 days?: No Contact w/someone who lives/traveled outside [place] past 30 days?: No Exposure to someone with infectious disease in past 14 days?: No Do you have a fever (greater than 100.4 F or 38 C)?: No Have you tested positive for COVID-19?: No Exposed to someone with COVID-19 in past 14 days?: No Do you have a sore throat?: No Do you have a cough?: No Do you have any weakness?: No Do you have any diarrhea?: No Are you experiencing any unusual bleeding?: No Do you have any muscle aches/pain?: No Do you have any abdominal pain?: No Are you experiencing loss of taste or smell?: No PM Subjective & Objective Subjective Subjective:: Patient is a pleasant 54-year-old female who presents today for her medication refill and follow-up. She does rated her pain today a 5 out of 10. Patient does state that she has been having worsening pain in her low back and right hip. Patient does states she would like to see about possibly getting some injections for this pain as it is interfering with her ability perform activities of daily living such as cooking and cleaning. Patient is currently managed with Percocet 10 mg 5 times a day and gabapentin 300 mg at bedtime. She denies any side effects. Her Evans has been reviewed and is appropriate. Review of Systems: General: No recent weight changes, no fever, no sleep disturbances Respiratory: No cough, no shortness of air, no recurring pulmonary infections Cardiovascular/peripheral vascular: No chest pain, no palpitations, no edema, no shortness of breath Gastrointestinal: No new onset incontinence, normal bowel movements reported Genitourinary: No new onset incontinence Musculoskeletal: Low back pain, right hip pain Psychiatric: [Normal mood/affect] Neurological: [Denies weakness in extremities], [denies balance issues] Pain at rest (0-10 scale): 5 Objective Objective:: Physical Exam: General: Alert and oriented x3, no acute distress, pleasant and cooperative Lungs: Respirations even and unlabored, symmetrical chest expansion Eyes: PERRL Musculoskeletal: Flexion and extension of lumbar [spine] somewhat guarded secondary to pain, [antalgic gait noted] point tenderness along right SI and right greater trochanteric bursa with positive right Irina's, Cordell's, Gaenslen's, compression and distraction exam Neurological: Speech clear, no gross sensory deficit Has patient had previous pain injection?: No Conservative treatment options previously tried: Home exercise plan Length of treatment: Longer than 12 weeks Meds Home Medications and Allergies Home Medications ?Medication ?Instructions ?Recorded ?Confirmed ?Type allopurinol 300 mg tablet 300 mg PO DAILY 01/28/24 10/19/24 History dapagliflozin propanediol 10 mg 10 mg PO DAILY 01/28/24 10/19/24 History tablet (Farxiga) ergocalciferol (vitamin D2) 1,250 1,250 mcg PO WEEKLY 01/28/24 10/19/24 History mcg (50,000 unit) capsule ezetimibe 10 mg tablet 10 mg PO DAILY 01/28/24 10/19/24 History flecainide 50 mg tablet 50 mg PO DAILY 01/28/24 10/19/24 History hydrochlorothiazide 25 mg tablet 25 mg PO DAILY 01/28/24 10/19/24 History loratadine 10 mg tablet 10 mg PO DAILY 01/28/24 10/19/24 History metoprolol tartrate 50 mg tablet 50 mg PO DAILY 01/28/24 10/19/24 History omeprazole 20 mg capsule,delayed 20 mg PO DAILY 01/28/24 10/19/24 History release trazodone 50 mg tablet 50 mg PO DAILY 10/15/24 07/07/25 History qjciszmqgboyyjz-dqpwoarhjbexqlc-PN 5 ml PO Q6H PRN cold symptoms 7 06/18/24 10/19/24 Rx 2 mg-30 mg-10 mg/5 mL oral syrup days #118 mL ibuprofen 800 mg tablet 800 mg PO TID PRN pain 7 days #20 06/18/24 10/19/24 Rx tabs ondansetron 4 mg disintegrating 4 mg PO Q6H PRN nausea and 06/18/24 10/19/24 Rx tablet vomiting 5 days #20 tabs gabapentin 300 mg capsule 300 mg PO DAILY #30 caps 08/17/24 10/19/24 Rx oxycodone-acetaminophen 10 mg-325 1 tab PO 5XDAY #150 tabs 09/16/24 10/19/24 Rx mg tablet New Prescriptions to Start Prescriptions: Allergies Allergy/AdvReac Type Severity Reaction Status Date / Time No Known Allergies Allergy Verified 05/22/24 14:20 Assessment and Plan *Assessment and plan (1) Trochanteric bursitis of right hip: Status: Acute Category: Medical Code(s): M70.61 - Trochanteric bursitis, right hip (2) Sacroiliitis: Status: Acute Category: Medical Code(s): M46.1 - Sacroiliitis, not elsewhere classified Plan Patient is experiencing worsening pain along her low back and right hip with limited range of motion. Patient did have point tenderness along her right SI and right greater trochanteric bursa during today's exam. I did discuss with patient that I do believe she would benefit from a right SI and right greater trochanteric bursa injection. Risk and benefits were discussed with the patient and she would like to proceed forward with this plan of care. Patient has had this pain for longer than a year unrelieved with conservative measures such as oral medication, heat and ice, topicals, at home stretching exercise for longer than 12 weeks. Patient had her last SI injection in June that did provide 100% relief and has for up until the last week or so. This will be a therapeutic injection with less than 1.5 mL of solution to be injected. Patient may be a future candidate for SI fusion. We will follow-up with this in future. I will refill the patient's Percocet and gabapentin. Patient will be scheduled for a right SI and right bursa injection under fluoroscopy. Risks and benefits of the medication have been explained in detail to the patient. The patient does understand the risk of dependence on the medication when given over a prolonged period. Patient has been advised of risks of oversedation with the prescribed medication. Narcan has been offered to the paitent in the event of oversedation. Patient has been advised that a family member should also be educated regarding administration of Narcan. The patient has been advised to consult with his/her primary care provider and pharmacist regarding drug-drug interaction of medications currently prescribed. Patient has been prescribed a controlled substance after being counseled on the medication, medication safety, and possible side effects. Opioid contract was reviewed and signed by the patient, and that they have agreed to all of the terms set forth by our compliance program. A UDS is needed to verify patient's compliance with our office pain contract. This is ordered based off specific treatments related to chronic pain with the potential to abuse certain medications. Patient has been instructed to contact the clinic with any concerns before the next appointment. Dr. Zelaya has reviewed this note and agrees with this plan of care. This note was dictated using voice recognition software and make contain errors or omissions.
== END | disposition home or self-care (01) ==
PROVIDERS: PCP Nurse Practitioner; Visit Provider Nurse Practitioner Family
DX: M70.61 Trochanteric bursitis, right hip (principal); M46.1 Sacroiliitis, not elsewhere classified; E78.5 Hyperlipidemia, unspecified; I10 Essential (primary) hypertension; I48.91 Unspecified atrial fibrillation; Z87.891 Personal history of nicotine dependence
CPT/HCPCS: 99212; G0463

== ENCOUNTER 2024-10-23 14:53 | Day surgery (SDC) | payer OTHER, SELFPAY ==
[2024-10-23 15:12] VITALS: BP 109/74; PULSE 94; RESP 18; O2SAT 96; BMI 34.6
[2024-10-23] MEDS: IOPAMIDOL-200 (41%);10ML VIAL 10 ML IV (15:30)
[2024-10-23] MEDS: BUPIVACAINE 0.25% 10ML INJ 25 MG IJ (15:34)
[2024-10-23] MEDS: DEXAMETHASONE 10MG/ML 1ML VIAL 10 MG (15:34)
[2024-10-23] MEDS: LIDOCAINE 1% 30ML PF VIAL 30 ML (15:34)
[2024-10-23 15:35] VITALS: BP 112/83; PULSE 88; RESP 18; O2SAT 98
[2024-10-23 15:36] VITALS: BP 112/83; PULSE 86; RESP 18; O2SAT 100
[2024-10-23 15:44] VITALS: BP 101/71; PULSE 83; RESP 18; O2SAT 98
--- NOTE | 2024-10-23 15:54 | EXP.PAIN.PRO ---
Procedure Date: 10/23/24 Time: 15:54 Anesthesiologist:: Amanuel Zelaya MD Complications:: None Pre-procedure Diagnosis:: Sacroiliitis and trochanteric bursitis Post-procedure Diagnosis:: Same Indications for Procedure:: The patient is a pleasant 54-year-old white female who we are treating for sacroiliitis and trochanteric bursitis. She is tender over the right SI joint. She does have a positive Irina's test on the right side. She has positive Yuridia since the right side. She has positive SI joint compression test on the right side. She has positive distraction test on the right side. She is also tender over the right trochanteric bursa. Will plan on doing a right SI joint injection and right trochanteric bursa injection today. This will be a therapeutic SI joint injection. Procedure Details:: Right SI joint injection under fluoroscopy Informed consent was obtained and the risks and benefits of the procedure was going to the patient. Patient was taken to the procedure room. Patient was placed prone on the procedure table. The right hip was prepped using ChloraPrep. The skin and subcutaneous tissues were anesthetized using lidocaine. I placed a 22-gauge spinal needle into the inferior aspect of the right SI joint. Needle placement was confirmed with dye. After this we injected 5 mL bupivacaine 0.25% and Depo-Medrol 40 mg into the right SI joint. The patient tolerated the procedure well with no complication. Informed consent was obtained and the risk and benefits of the procedure was explained to the patient. The patient was taken to the procedure room. The right hip was prepped using ChloraPrep. The skin and subcutaneous tissues were anesthetized using lidocaine. I placed a 22-gauge spinal needle and advanced under fluoroscopic guidance until it contacted the right greater trochanter. Needle placement was confirmed with dye. After this I injected bupivacaine 0.25% 5 mL and Depo-Medrol 40 mg into the right trochanteric bursa. Patient tolerated the procedure well with no complications. Plan and Disposition:: Will follow-up with this patient in 2 weeks we will evaluate efficacy of this injection. Will reevaluate symptoms at that time
== END 2024-10-23 15:44 | disposition home or self-care (01) ==
LOC: SC.PAINP 14:54
PROVIDERS: PCP Nurse Practitioner; Visit Provider Anesthesiology
DX: M46.1 Sacroiliitis, not elsewhere classified (principal); M70.61 Trochanteric bursitis, right hip; E78.5 Hyperlipidemia, unspecified; I10 Essential (primary) hypertension; I48.91 Unspecified atrial fibrillation; Z79.899 Other long term (current) drug therapy; Z79.891 Long term (current) use of opiate analgesic; Z79.84 Long term (current) use of oral hypoglycemic drugs
CPT/HCPCS: 20610; G0260; J0665; J1100; J2003; Q9966

== ENCOUNTER 2024-11-06 13:50 | Outpatient (POV) | payer OTHER, SELFPAY ==
--- OUTSIDE RECORDS SUMMARY | 2024-09-16 14:30 | XMS_ITS | Encounter Summary ---
Author Organization [facility] [address] Care Team Providers Care Lab Systems Analyst Name Role Phone Juana Bailey APRN Primary Care Provider [phone] Reason for Visit * Reason Comments Insect Bite Tick, right hip. Too k doxy Encounter Details Date Type Department Care Team (Late st Contact Info) Description 09/16/2024 2:30 PM EDT Office Visit [facility] [address] [place] [id number] Juana Bailey APRN [address] [place] [address] Tick bite, unspecified site, initial encounter (Primary Dx) Social History Tobacco Use Types [...] Date Recorded PHQ-2 Total Score 0 10/24/2023 [facility] [place] of Occupat ional Health - Occupational Stress [...] Sign Reading Time Taken Comments Blood Pressure 114/74 09/16/2024 2:20 PM EDT Pulse 97 09/16/2024 2:20 PM EDT Temperature 36.4 C (97.6 F) 09/16/2024 2:20 PM EDT Respiratory Rate 18 09/16/2024 2:20 PM EDT Oxygen Saturation 97% 09/16/2024 2:20 PM EDT Inhaled Oxygen Concentration - - Weight 100.7 kg (222 lb) 09/16/2024 2:20 PM EDT Height - - Body Mass [...] Refills Last Filled Start Date End Date doxycycline hyclate (VIBRA-TABS) 100 mg Oral TabletIndications: Tick bite, unspecified site, initial encounter Take 1 Tablet by mouth 2 times daily for 7 days. 14 Tablet 09/16/2024 09/23/2024 documented in this encounter Progress Notes * Juana Bailey APRN - 09/16/2024 2:30 PM EDT Assessment & Plan Tick bite, unspecified site, initial encounter Will cover with 7-day course of doxy for possible secondary bacterial infection Recommend cool compresses, keep clean Follow-up for new or worsening sx. Orders: doxycycline hyclate (VIBRA-TABS) 100 mg Oral Tablet; Take 1 Tablet by mouth 2 times daily for 7 days. Progress Note: Vitals: 09/16/24 1420 BP: 114/74 Pulse: 97 Resp: 18 Temp: 97.6 ??F (36.4 ??C) TempSrc: Forehead SpO2: 97% Weight: 222 lb (100.7 kg) Body mass index is 36.94 kg/m??. SUBJECTIVE: Chief Complaint Patient presents with Insect Bite Tick, right hip. Took doxy HPI: Tick bite to right upper outer glut. Took a loading dose of doxy for lyme prevention. Has developed redness, tenderness. Not open or draining. Review of Systems Constitutional: Negative for fever. HENT: Negative for congestion. Respiratory: Negative for cough, shortness of breath and wheezing. Cardiovascular: Negative for chest pain, palpitations and leg swelling. Gastrointestinal: Negative for abdominal pain. Skin: Positive for wound. Negative for rash. OBJECTIVE: Physical Exam Constitutional: Appearance: She is obese. HENT: Head: Normocephalic and atraumatic. Cardiovascular: Rate and Rhythm: Normal rate and regular rhythm. Heart sounds: Normal heart sounds. Pulmonary: Effort: Pulmonary effort is normal. Breath sounds: Normal breath sounds. Skin: Findings: Erythema (small macular lesion to right upper outer glut. firm and tender.) present. Neurological: Mental Status: She is alert and oriented to person, place, and time. Psychiatric: Mood and Affect: Mood normal. documented in this encounter Plan of Treatment Not on file documented as of this encounter Goals Goal Patient Goal Type Associated Problems Recent Progress Patient-Stated? Author Blood Pressure < 140/90 Blood Pressure 103/69(2024 2:49 PM EDT) No Juana Bailey APRN Maintain a healthy diet, exercise regularly and maintain an ideal body weight General No Noelle Yeh RMA BMI (Calculated) < 30 General 35.2(11/05/19 12:38 PM EDT) No Juana Bailey APRN Stay Tobacco Free Lifestyle No Juana Bailey APRN HEMOGLOBIN A1C < 7.0 Result Component 6.2( 1:28 PM EST) No Juana Bailey APRN documented as of this encounter Visit Diagnoses Diagnosis Tick bite, unspecified site, initial encounter- Primary documented in this encounter Care Teams Lab Systems Analyst Relationship Specialty Start Date End Date Juana Bailey APRN [address] [place], [place] [address] PCP - General Nurse Practitioner-Family 08/29/22 documented as of this encounter
--- OUTSIDE RECORDS SUMMARY | 2024-09-28 23:59 | XMS_ITS | Encounter Summary ---
Author Organization [facility] [place] [address] Care Team Providers Care Engineering Production Worker Name Role Phone Mentor, Juana ZAHRA Primary Care Provider [phone]- [phone] Encounter Details Date Type Department Care Team (Late st Contact Info) Description 09/30/2024 11:59 PM EDT Anesthesia Event [facility] [address] [place] [address] Srinivas Liao APRN [address] [place] [address] Anesthesia Record Procedure Summary Procedure Name Responsible Anesthesiologist Anesthesia Start Time Anesthesia Stop Time Events No events on file. Meds * [...] Date Recorded PHQ-2 Total Score 0 10/24/2023 [facility] [place] of Occupat ional Health - Occupational Stress [...] EDAlden Al CCMA documented in this encounter Miscellaneous Notes * PAT Pre Evaluation for Anesthesia - Srinivas Liao APRN - 09/28/2024 2:26 PM EDT Pre-Anesthesia Evaluation Note Patient Name: Jane Madden Sex: female Patient : 1970 Age: 54 y.o. Patient Date: September 28, 2024 COLONOSCOPY Anesthesia Evaluation Previous anesthesia. 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 Anesthesia Plan Anesthesia Plan: MAC Chart Reviewed documented in this encounter Plan of Treatment Not on file documented as of this encounter Goals Goal Patient Goal Type Associated Problems Recent Progress Patient-Stated? Author Blood Pressure < 140/90 Blood Pressure 103/69(2024 2:49 PM EDT) No Lynn, Juana, DISABILITY SPECIALIST Maintain a healthy diet, exercise regularly and maintain an ideal body weight General No Noelle Yeh RMA BMI (Calculated) < 30 General 35.2(11/05/19 25 12:38 PM EDT) No Juana Bailey APRN Stay Tobacco Free Lifestyle No Juana Bailey APRN HEMOGLOBIN A1C < 7.0 Result Component 6.2( 5 1:28 PM EST) No Juana Bailey APRN documented as of this encounter Visit Diagnoses Not on filedocumented in this encounter Care Teams Engineering Production Worker Relationship Specialty Start Date End Date Juana Bailey APRN [address] [place] [id number] PCP - General Nurse Practitioner-Family 08/29/22 documented as of this encounter
--- OUTSIDE RECORDS SUMMARY | 2024-11-04 11:58 | XMS_ITS | Encounter Summary ---
Author Organization [place] [address] Care Team Providers Care Passenger Car Cleaning Supervisor Name Role Phone Lynn, Juana ZAHRA Primary Care Provider [phone] Reason for Referral * Surgical (Routine) - Authorization Not Needed Specialty Diagnoses / Procedures Referred By Contac t Referred To Contact Gastroenterology Diagnoses Screening for colon cancer Procedures COLONOSCOPY ME COLORECTAL SCRN; HI RISK IND ME COLONOSCOPY FLX W/ENDOSCOPIC MUCOSAL RESECTION Nitin Morgan MD [address] [place] [address] Phone: tel: fax: Referral ID Status Reason Start Date Expiration Date Visits Requested Visits Authorized [id number] Authorization Not Needed 08/19/2024 08/19/2025 1 1 Reason for Visit * Surgical (Routine) - Authorization Not Needed Specialty Diagnoses / Procedures Referred By Contac t Referred To Contact Gastroenterology Diagnoses Screening for colon cancer Procedures COLONOSCOPY ME COLORECTAL SCRN; HI RISK IND ME COLONOSCOPY FLX W/ENDOSCOPIC MUCOSAL RESECTION Nitin Morgan MD [address] [place] [address] Phone: tel: fax: Referral ID Status Reason Start Date Expiration Date Visits Requested Visits Authorized [id number] Authorization Not Needed 08/19/2024 08/19/2025 1 1 Encounter Details Date Type Department Care Team (Latest Contact Info) Description 11/04/2024 11:58 AM EDT - 11/04/2024 11:59 PM EDT Hospital Encounter [facility] ENDOSCOPY [address] [place] [address] Nitin Morgan MD [address] [place], [place] [id number] Zeb Tamayo CRNA [address] [place] [id number] Screening for colon cancer Discharge Disposition: Home [...] Date Recorded PHQ-2 Total Score 0 10/24/2023 [facility] Occupat ional Health - Occupational Stress [...] the original note were not included. +++++++++++++++++++++++++++++++++++++++++++++++++++++++++++++++++++ [facility] Discharge Instructions - Following Anesthesia We appreciate [...] our office at . Get Well Soon! [facility] +++++++++++++++++++++++++++++++++++++++++++++++++++++++++++++++++++ [facility] Discharge Instructions - Following Endoscopy A responsible [...] questions. Patient discharged to the care of ErinChace britneyrae ADDITIONAL INSTRUCTIONS: Call Dr. Morgan at [phone] if the following occurs: Colonoscopy: Severe abdominal [...] Tablets by mouth daily. 60 Tablet 4 aspirin-dipyridamol e (AGGRENOX) 25-200 mg Oral Cap, Multiphasic Release 12 hr Take 1 Capsule by mouth 2 times daily. Once daily b hxtdkgf-A-ezypk acid (NEPHROCAP) 1 mg Oral Capsule Take 1 Capsule by mouth daily. Cholecalciferol, Vitamin D3, 125 mcg (5,000 unit) Oral Capsule Take 5,000 Units by mouth daily. 30 Capsule 4 conjugated estrogens (PREMARIN) Vagl CreamIndications:Va ginal atrophy Place 0.5 g vaginally every other day. 30 g 3 3 cyanocobalamin 1,000 mcg Oral Tablet Take 1 Tablet by mouth daily. 30 Tablet 4 dapagliflozin propanediol (FARXIGA) 10 mg Oral TabletIndications:S tage 3b chronic kidney disease (HCC),Type 2 diabetes mellitus with hyperlipidemia ([facility]),ASHD (arteriosclerotic heart disease) TAKE ONE TABLET BY MOUTH ONCE A DAY 100 Tablet 1 4 ergocalciferol (DRISDOL) 1,250 mcg (50,000 unit) [...] MOUTH ONCE A DAY 30 Tablet 4 metoprolol (LOPRESSOR) 50 mg Oral Tablet TAKE ONE TABLET BY MOUTH 2 TIMES A DAY 180 Tablet 5 4 minoxidiL (LONITEN) 2.5 mg Oral TabletIndications:H [...] Dr. Zelaya traZODone (DESYREL) 50 mg Oral TabletIndications:I nsomnia, persistent TAKE ONE TABLET BY MOUTH EVERY NIGHT 30 Tablet 5 5 Zinc Acetate, Oral, 50 mg (zinc) Oral Capsule Take 50 mg by mouth daily. 30 Capsule 4 ezetimibe (ZETIA) 10 mg Oral TabletIndications:T ype 2 diabetes mellitus with hyperlipidemia (HCC),Statin myopathy TAKE ONE TABLET BY MOUTH ONCE A DAY 30 Tablet 2 5 semaglutide (OZEMPIC) 2 mg/dose (8 mg/3 mL) SubQ Pen InjectorIndications :Type 2 diabetes mellitus with hyperlipidemia (HCC) Subcutaneous (Inject under the skin) 2 mg once a week. 3 mL 11 4 topiramate (TOPAMAX) 50 mg Oral Tablet TAKE 1 TABLET BY MOUTH TWICE DAILY 60 Tablet 2 5 documented as of this encounter Discharge Disposition Disposition Code Departure Means Destination Home or Self Care documented in this encounter H&P Notes * Nitin Morgan MD - 11/04/2024 1:00 PM EDT [facility] Gastroenterology Outpatient Pre-Procedural History and Physical [...] mouth 2 times daily. Once daily b dhcklck-F-yjmvo acid (NEPHROCAP) 1 mg Oral Capsule Take [...] Insecurity: No Food Insecurity (05/03/2023) Re[place] [facility] ([place], [place]) Food Insecurity Food run out past [...] min Stress: No Stress Concern Present (03/05/2023) [facility] - Occupational Stress Questionnaire Feeling of Stress : Only a little Social Connections: Low Risk (05/03/2023) Re[place] [facility] ([place], [place]) Family and Community Support Help with Day to Day Activities: Not on file Feeling Lonely or Isolated: Not on file Intimate Partner Violence: Unknown (01/22/2023) Received from [facility] Abuse Screen Unsafe at Home or Work/School: Not on file Feels Threatened by Someone?: Not on file Does Anyone Keep You from Contacting Others or Doint Things Outside the Home?: Not on file Physical Sign of Abuse Present: Not on file Housing Stability: Low Risk (05/03/2023) Received from [facility] ([place], [place], [place], [place]) Housing Stability Living situation today: [...] 05/07/2024 MICROALBUR 80 10/23/2022 TSHREFLEX 4.180 10/24/2023 HNIA86AZ 49.8 10/24/2023 No results found for: INR , PROTIME Last Oral Intake: Yesterday Previous Anesthesia Reaction: no Pre-Procedure Assessment: Risks, benefits, potential complications (including but not limited to missed lesions, sedation, bleeding, perforation and or ) and alternatives were discussed with the patient or patient's legally authorized medical claims representative. The patient's pre-procedural physical assessment indicates that the patient is suitable for and agrees to the planned sedation and procedure. Cardiovascular and Vital signs Stable: yes Adequate/Patient Oral Airway yes ASA: 2 ASSESSMENT / PLAN: Jane Madden is a 54 y.o. female who presents for the above specified procedure. I attest that the patient/patient medical claims representative has been counseled as to the potential benefits, risks, and side effects to the planned surgical treatment, including the likelihood of success and potential problems that might occur during recuperation. The patient/patient medical claims representative has also been counseled as to the alternatives to this intervention, including possible results of not having this intervention performed and benefits and risks of these alternatives. The patient/patient medical claims representative has given their consent to proceed with this intervention after having their questions sufficiently answered. Nitin Morgan MD SEP Gastroenterology documented in this encounter Nursing Notes * Nikole Fernandez, PETER - 11/04/2024 1:00 PM EDT Images from [...] or alcohol 24 hours prior to procedure. Sack Repairer On the day of procedure, it is important to have a Sack Repairer, someone who is 18 years or older, [...] [facility]. Please do [...] a Living Will and Durable Power of Wire Photo Operator for Healthcare, please bring a copy. If [...] excellent experience while you are here. Endoscopy [facility] at [phone] Physician Specialty Services Entrance 3A, check in at front desk attendant, [address] [place] [address] documented in this encounter Plan of Treatment Not on file documented as of this encounter Goals Goal Patient Goal Type Associated Problems Recent Progress Patient-Stated? Author Blood Pressure < 140/90 Blood Pressure 103/69(2024 2:49 PM EDT) No [place], Juana, BALANCE BRIDGE INSPECTOR Maintain a healthy diet, exercise regularly and maintain an ideal body weight General No Noelle Yeh RMA BMI (Calculated) < 30 General 35.2(11/05/19 12:38 PM EDT) No [place], Juana, BALANCE BRIDGE INSPECTOR Stay Tobacco Free Lifestyle No [place], Juana, BALANCE BRIDGE INSPECTOR HEMOGLOBIN A1C < 7.0 Result Component 6.2( 1:28 PM EST) No [place], Juana, BALANCE BRIDGE INSPECTOR documented as of this encounter Procedures Procedure [...] Morgan MD Performing Provider IRVIN Lamar CRNA, PETER Storage Brine Worker Bárbara Leyva RN Endoscopy Nurse Medications See [...] GLUCOSE METER POC (11/04/2024 1:04 PM EDT) Pathologist [facility] Glucose Meter POC 73 70 - 100 mg/dL 11/04/2024 1:05 PM EDT [facility] Sample Type Capillary 11/04/2024 1:05 PM EDT [facility] Patient Status Non-Critical Patient 11/04/2024 1:05 PM EDT [facility] Blood BLOOD SPECIMEN / Unknown 11/04/2024 1:04 PM EDT 11/04/2024 1:05 PM EDT us Nitin Morgan MD POINT OF CARE TEST ORDERABLE S Final Result [facility] [address] [facility] [place] [address] documented in this encounter Visit Diagnoses [...] (NovoLO G) injection 1-10 Units 1 11/03/2024 lactated ringers infusion 1 11/03/2024 Discharge Count Last Ordered Date First Orde red Date DISCHARGE PATIENT 1 11/04/2024 documented in this encounter Care Teams Passenger Car Cleaning Supervisor Relationship Specialty Start Date End Date Juana Bailey APRN [address] [place] [address] PCP - General Nurse Practitioner-Family 08/29/22 documented as of this encounter
--- OUTSIDE RECORDS SUMMARY | 2024-11-04 14:07 | XMS_ITS | Encounter Summary ---
Author Organization [place] [address] Care Team Providers Care Senior Fire Protection Engineer Name Role Phone LynnJuana talbot ZAHRA Primary Care Provider Encounter Details Date Type Department Care Team (Late st Contact Info) Description 11/04/2024 2:07 PM EDT Anesthesia Event GRT ENDOSCOPY [address] [facility]. [place] [phone] Zeb Tamayo SPONGE FISHERMAN [address] [place], [place] [id number] Srinivas Liao APRN [address] [place] [address] Anesthesia Record Procedure Summary Procedure Name Responsible Anesthesiologist Anesthesia Start Time Anesthesia Stop Time COLONOSCOPY Zeb Tamayo SPONGE FISHERMAN 11/04/24 1407 10/14 07/07 1428 Events Date Time Event Comment 11/04/2024 1245 1405 AN Equip Check 1407 An Start 1407 An Start Data 1407 Start Supplemental O2 Disabl es direct capture of O2 [ANES AGENT O2 [[id number]] and Air flow [ANES AGENT AIR [[id number]] variables into chart. 1407 Immediate Pre Anesthetic [...] acknowledgement of understanding from the receiving PACU/ICU cps team lead Meds Name Total propofol (DIPRIVAN) injection 200 [...] applied, No Complications 11/04/24 1302 by Ruth Anguiano RN 11/04/24 1446 by Concepción James RN Airway Device: Nasal Cannul a Salter; Placement Date: 11/04/24; Placement Time: 141 (created via procedure documentation); Removal Date: 11/04/24; Removal Time: 1433 11/04/24 1412 by Zeb Tamayo SPONGE FISHERMAN 11/04/24 1433 by Discharge Provider, Automatic documented in this encounter Social History Tobacco Use Types Packs/Day Years Used Date Smoking Tobacco: Never Smokeless Tobacco: Current Snuff Alcohol Use Standard Drinks/Week Comments Not Currently 0 (1 standard drink = 0.6 oz pur e alcohol) Overall Financial Resource Strain ([facility]) Answe r Date Recorded How hard is it for you to pa y for the very basics like food, housing, medical care, and heating? Not very hard 03/05/2023 PHQ-2 Answer Date Recorded PHQ-2 Total Score 0 10/24/2023 [facility] of Occupat ional Health [...] 2 and well controlled Arthritis: Osteoarthritis Anemia ELECTROPHYSIOLOGY SCIENTIST (+) Non childbearing due to: Tubal ligation [...] 2 and well controlled Arthritis: Osteoarthritis Anemia ELECTROPHYSIOLOGY SCIENTIST (+) Non childbearing due to: Tubal ligation [...] AIRWAY PLACEMENT (11/04/2024 2:12 PM EDT) Narrative [facility] - 11/04/2024 2:12 PM EDT Zeb Tamayo CRNA 11/04/2024 2:12 PM Intraop Airway Placement: Date/Time: 11/04/2024 2:12 PM Airway type: Nasal cannula salter us Zeb Tamayo SPONGE FISHERMAN [place] ANESTHESIA Final Resul t [facility] [address] [place] [address] documented in this encounter Visit [...] mg documented in this encounter Care Teams Senior Fire Protection Engineer Relationship Specialty Start Date End Date Juana Bailey APRN [address] [place] [address] PCP - General Nurse Practitioner-Family 08/29/22 documented as of this encounter
--- OUTSIDE RECORDS SUMMARY | 2024-11-06 13:54 | XMS_ITS | Data Portability ---
Author Organization [place] [facility] [place] [facility] [place] [facility] ADMIN Address [address] [place] [id number] Assessment Encounter Date Assessment Date Assessment LastModified by Organization Details LastModified Time 05/09/2023 05/09/2023 Additional Notes : prediabetes and HTN noted. Discussed need to d/c Ozempic 30 days prior to surgery Weigh-Ins Needed: 3; has completed this with PCP while on Ozempic - will go ahead and schedule 1 weigh in for next month with [facility] RDN concludes that pt is a suitable candidate for sx at this time. Reservations include none at this time with favorable nutritional prognosis anticipated. Pt verbally agreed to recommendations and goals. Denied further questions/concerns . RDN will monitor weight loss, labs, and lifestyle modifications. Will f/up as scheduled or PRN. [email or web address] Not available 05/09/2023 14:17:59 Plan of Treatment Reminders Order Date Submit Date Provider Last Modified By Organization Details Last Modified Time Details Appointments None recorded. Lab CBC w/ auto diff 2023 024 SHOCK [facility], [address], [address], [place], [address], 4 20:36:40 CMP, serum or plasma 2023 024 SHOCK [facility], [address], [address], [place], [address], 4 20:36:41 HbA1c (hemoglobin A1c), blood 2023 024 JAQUAN [facility], [address], [address], [place], [address], 4 20:36:44 iron + TIBC + ferritin, serum 2023 024 JAQUAN [facility], [address], [address], [place], [address], 4 20:36:38 vitamin D, 25-hydroxy, total, serum 2023 024 JAQUAN [facility], [address], [address], [place], [address], 4 20:36:46 vitamin A (retinol), serum 2023 024 JAQUAN [facility], [address], [address], [place], [address], 4 20:36:45 vitamin E, serum 2023 024 JAQUAN [facility], [address], [address], [place], [address], 4 20:36:43 PTH (parathyroi d hormone), intact, serum or plasma 2023 024 JAQUAN [facility], [address], [address], [place], [address], 4 20:36:49 lipid panel, serum 2023 024 JAQUAN [facility], [address], [address], [place], [address], 4 20:36:42 TSH + free T4, serum 2023 024 JAQUAN [facility], [address], [address], [place], [address], 4 20:36:39 folate, serum 2023 024 JAQUAN [facility], [address], [address], [place], [address], 4 20:36:45 methylmalon ate, QN, serum or plasma 2023 024 JAQUAN [facility], [address], [address], [place], [address], 4 20:36:48 thiamine, QN, blood 2023 024 JAQUAN [facility], [address], [address], [place], [address], 4 20:36:47 Referral None recorded. Procedures None recorded. Surgeries esophagogas troduodenos copy (SURG) 2023 024 [email or web address] Fran Dailey MD, [address], [address], [place], [address], 4 10:59:39 Imaging electrocard iogram 2023 024 [email or web address] [facility], [address], [place], [address], 4 16:04:28 XR, chest, 2 view 2023 024 [email or web address] [facility], [address], [place], [address], 4 16:12:01 electrocard iogram, routine ECG, 12 leads min 2023 024 [email or web address] [facility], [address], [place], [address], 4 16:12:01 electrocard iogram 09/19/ 2023 09/19/2 023 [facility], [address], [place], [address], 3 07:52:38 Medication Orders Coreg 12.5 mg tablet 2022 024 [facility], [address], [id number], 4 15:10:44 Patient TargetsNo targets recorded. Patient InstructionsNo instructions recorded. Reason for Referral None Reported. Results Created Date Observation Date Name Description Value Unit Range Abnormal Flag Note LastModifiedBy Organization Detail LastModifiedTime 05/09/19 24 05/10/2023 FE+TI BC+FE R iron bind.cap.(TI BC) 315 ug/dL 250-45 0 Not Available [facility] ([facility]) [address] [place], [address], 05/15/2023 20:36:38 05/09/19 24 05/10/2023 FE+TI BC+FE R UIBC 233 ug/dL 131-42 5 Not Available [facility] ([facility]) [address] [place], [address], 05/15/2023 20:36:38 05/09/19 24 05/10/2023 FE+TI BC+FE R iron 82 ug/dL 27-159 Not Available [facility] ([facility]) [address] [place], [address], 05/15/2023 20:36:38 05/09/19 24 05/10/2023 FE+TI BC+FE R iron saturation 26 % 15-55 Not Available [facility] ([facility]) [address] [place], [address], 05/15/2023 20:36:38 05/09/19 24 05/10/2023 FE+TI BC+FE R ferritin 637 NG/mL 15-150 above high normal Not Available [facility] ([facility]) [address] [facility], [place], [address], 05/15/2023 20:36:38 05/09/19 24 05/10/2023 TSH+F REE T4 TSH 2.190 uIU/m L 0.450- 4.500 Not Available [facility] ([facility]) [address] [facility], [place], [address], 05/15/2023 20:36:39 05/09/19 24 05/10/2023 TSH+F REE T4 T4,free(dire ct) 1.45 NG/dL 0.82-1 .77 Not Available [facility] ([facility]) [address] [facility], [place], [address], 05/15/2023 20:36:39 05/09/19 24 05/10/2023 CBC WITH DIFFE RENTI AL/PL ATELE T WBC 10.3 x10e3 /uL 3.4-10 .8 Not Available [facility] ([facility]) [address] [place], [address], 05/15/2023 20:36:40 05/09/19 24 05/10/2023 CBC WITH DIFFE RENTI AL/PL ATELE T RBC 4.50 x10e6 /uL 3.77-5 .28 Not Available [facility] ([facility]) [address] [place], [address], 05/15/2023 20:36:40 05/09/19 24 05/10/2023 CBC WITH DIFFE RENTI AL/PL ATELE T hemoglobin 14.3 g/dL 11.1-1 5.9 Not Available [facility] ([facility]) [address] [place], [address], 05/15/2023 20:36:40 05/09/19 24 05/10/2023 CBC WITH DIFFE RENTI AL/PL ATELE T hematocrit 42.8 % 34.0-4 6.6 Not Available [facility] ([facility]) [address] [facility], [place], [address], 05/15/2023 20:36:40 05/09/19 24 05/10/2023 CBC WITH DIFFE RENTI AL/PL ATELE T MCV 95 fL 79-97 Not Available [facility] ([facility]) [address] [facility], [place], [address], 05/15/2023 20:36:40 05/09/19 24 05/10/2023 CBC WITH DIFFE RENTI AL/PL ATELE T MCH 31.8 pg 26.6-3 3.0 Not Available [facility] ([facility]) [address] [facility], [place], [address], 05/15/2023 20:36:40 05/09/19 24 05/10/2023 CBC WITH DIFFE RENTI AL/PL ATELE T MCHC 33.4 g/dL 31.5-3 5.7 Not Available [facility] ([facility]) [address] [facility], [place], [address], 05/15/2023 20:36:40 05/09/19 24 05/10/2023 CBC WITH DIFFE RENTI AL/PL ATELE T RDW 14.1 % 11.7-1 5.4 Not Available [facility] ([facility]) [address] [facility], [place], [address], 05/15/2023 20:36:40 05/09/19 24 05/10/2023 CBC WITH DIFFE RENTI AL/PL ATELE T platelets 239 x10e3 /uL 150-45 0 Not Available [facility] ([facility]) [address] [facility], [place], [address], 05/15/2023 20:36:40 05/09/19 24 05/10/2023 CBC WITH DIFFE RENTI AL/PL ATELE T neutrophils 64 % not estab. Not Available [facility] ([facility]) [address] [facility], [place], [address], 05/15/2023 20:36:40 05/09/19 24 05/10/2023 CBC WITH DIFFE RENTI AL/PL ATELE T lymphs 23 % not estab. Not Available [facility] ([facility]) [address] [facility], [place], [address], 05/15/2023 20:36:40 05/09/19 24 05/10/2023 CBC WITH DIFFE RENTI AL/PL ATELE T monocytes 8 % not estab. Not Available [facility] ([facility]) [address] [facility], [place], [address], 05/15/2023 20:36:40 05/09/19 24 05/10/2023 CBC WITH DIFFE RENTI AL/PL ATELE T eos 4 % not estab. Not Available [facility] ([facility]) [address] [facility], [place], [address], 05/15/2023 20:36:40 05/09/19 24 05/10/2023 CBC WITH DIFFE RENTI AL/PL ATELE T basos 1 % not estab. Not Available [facility] ([facility]) [address] [facility], [place], [address], 05/15/2023 20:36:40 05/09/19 24 05/10/2023 CBC WITH DIFFE RENTI AL/PL ATELE T immature cells DIRECTOR VIDEO Not Available [facility] ([facility]) [address] [facility], [place], [address], 05/15/2023 20:36:40 05/09/19 24 05/10/2023 CBC WITH DIFFE RENTI AL/PL ATELE T neutrophils (absolute) 6.7 x10e3 /uL 1.4-7. 0 Not Available [facility] ([facility]) [address] [place], [address], 05/15/2023 20:36:40 05/09/19 24 05/10/2023 CBC WITH DIFFE RENTI AL/PL ATELE T lymphs (absolute) 2.3 x10e3 /uL 0.7-3. 1 Not Available [facility] ([facility]) [address] [facility], [place], [address], 05/15/2023 20:36:40 05/09/19 24 05/10/2023 CBC WITH DIFFE RENTI AL/PL ATELE T monocytes(ab solute) 0.8 x10e3 /uL 0.1-0. 9 Not Available [facility] ([facility]) [address] [facility], [place], [address], 05/15/2023 20:36:40 05/09/19 24 05/10/2023 CBC WITH DIFFE RENTI AL/PL ATELE T eos (absolute) 0.4 x10e3 /uL 0.0-0. 4 Not Available [facility] ([facility]) [address] [facility], [place], [address], 05/15/2023 20:36:40 05/09/19 24 05/10/2023 CBC WITH DIFFE RENTI AL/PL ATELE T baso (absolute) 0.1 x10e3 /uL 0.0-0. 2 Not Available [facility] ([facility]) [address] [facility], [place], [address], 05/15/2023 20:36:40 05/09/19 24 05/10/2023 CBC WITH DIFFE RENTI AL/PL ATELE T immature granulocytes 0 % not estab. Not Available [facility] ([facility]) [address] [facility], [place], [address], 05/15/2023 20:36:40 05/09/19 24 05/10/2023 CBC WITH DIFFE RENTI AL/PL ATELE T immature grans (abs) 0.0 x10e3 /uL 0.0-0. 1 Not Available [facility] ([facility]) [address], [place], [address], 05/15/2023 20:36:40 05/09/19 24 05/10/2023 CBC WITH DIFFE RENTI AL/PL ATELE T NRBC DIRECTOR VIDEO Not Available [facility] ([facility]) [address], [place], [address], 05/15/2023 20:36:40 05/09/19 24 05/10/2023 CBC WITH DIFFE RENTI AL/PL ATELE T hematology comments: DIRECTOR VIDEO Not Available [facility] ([facility]) [address], [place], [address], 05/15/2023 20:36:40 05/09/19 24 05/10/2023 COMP. METAB OLIC PANEL (14) glucose 111 mg/dL 70-99 above high normal Not Available [facility] ([facility]) [address], [place], [address], 05/15/2023 20:36:41 05/09/19 24 05/10/2023 COMP. METAB OLIC PANEL (14) BUN 18 mg/dL 6-24 Not Available [facility] ([facility]) [address], [place], [address], 05/15/2023 20:36:41 05/09/19 24 05/10/2023 COMP. METAB OLIC PANEL (14) creatinine 1.02 mg/dL 0.57-1 .00 above high normal Not Available [facility] ([facility]) [address], [place], [address], 05/15/2023 20:36:41 05/09/19 24 05/10/2023 COMP. METAB OLIC PANEL (14) eGFR 65 mL/mi n/1.7 3 >59 Not Available [facility] ([facility]) [address], [place], [address], 05/15/2023 20:36:41 01/25/20 24 05/10/2023 COMP. METAB OLIC PANEL (14) BUN/creatini ne ratio 18 9-23 Not Available [facility] ([facility]) [address] [facility] [place], [address], 05/15/2023 20:36:41 05/09/19 24 05/10/2023 COMP. METAB OLIC PANEL (14) sodium 141 mmol/ L 134-14 4 Not Available [facility] ([facility]) [address] [facility], [place], [address], 05/15/2023 20:36:41 05/09/19 24 05/10/2023 COMP. METAB OLIC PANEL (14) potassium 3.4 mmol/ L 3.5-5. 2 below low normal Not Available [facility] ([facility]) [address] [facility], [place], [address], 05/15/2023 20:36:41 05/09/19 24 05/10/2023 COMP. METAB OLIC PANEL (14) chloride 96 mmol/ L 96-106 Not Available [facility] ([facility]) [address] [place], [address], 05/15/2023 20:36:41 05/09/19 24 05/10/2023 COMP. METAB OLIC PANEL (14) carbon dioxide, total 29 mmol/ L 20-29 Not Available [facility] ([facility]) [address] [place], [address], 05/15/2023 20:36:41 05/09/19 24 05/10/2023 COMP. METAB OLIC PANEL (14) calcium 10.6 mg/dL 8.7-10 .2 above high normal Not Available [facility] ([facility]) [address] [place], [address], 05/15/2023 20:36:41 05/09/19 24 05/10/2023 COMP. METAB OLIC PANEL (14) protein, total 7.6 g/dL 6.0-8. 5 Not Available [facility] ([facility]) [address] [place], [address], 05/15/2023 20:36:41 05/09/19 24 05/10/2023 COMP. METAB OLIC PANEL (14) albumin 4.4 g/dL 3.8-4. 9 Not Available [facility] ([facility]) [address] [place], [address], 05/15/2023 20:36:41 05/09/19 24 05/10/2023 COMP. METAB OLIC PANEL (14) globulin, total 3.2 g/dL 1.5-4. 5 Not Available [facility] ([facility]) [address], [place], [address], 05/15/2023 20:36:41 05/09/19 24 05/10/2023 COMP. METAB OLIC PANEL (14) A/G ratio 1.4 1.2-2. 2 Not Available [facility] ([facility]) [address] [place], [address], 05/15/2023 20:36:41 05/09/19 24 05/10/2023 COMP. METAB OLIC PANEL (14) bilirubin, total 0.6 mg/dL 0.0-1. 2 Not Available [facility] ([facility]) [address] [place], [address], 05/15/2023 20:36:41 05/09/19 24 05/10/2023 COMP. METAB OLIC PANEL (14) alkaline phosphatase 105 IU/L 44-121 Not Available [facility] ([facility]) [address] [place], [address], 05/15/2023 20:36:41 05/09/19 24 05/10/2023 COMP. METAB OLIC PANEL (14) AST (SGOT) 40 IU/L 0-40 Not Available [facility] ([facility]) [address] [facility], [place], [address], 05/15/2023 20:36:41 05/09/19 24 05/10/2023 COMP. METAB OLIC PANEL (14) ALT (SGPT) 37 IU/L 0-32 above high normal Not Available [facility] ([facility]) [address] [facility], [place], [address], 05/15/2023 20:36:41 05/09/19 24 05/10/2023 LIPID PANEL cholesterol, total 168 mg/dL 100-19 9 Not Available [facility] ([facility]) [address] [place], [address], 05/15/2023 20:36:42 05/09/19 24 05/10/2023 LIPID PANEL triglyceride s 187 mg/dL 0-149 above high normal Not Available [facility] ([facility]) [address] [place], [address], 05/15/2023 20:36:42 05/09/19 24 05/10/2023 LIPID PANEL HDL cholesterol 45 mg/dL >39 Not Available [facility] ([facility]) [address] [facility], [place], [address], 05/15/2023 20:36:42 05/09/19 24 05/10/2023 LIPID PANEL VLDL cholesterol radha 32 mg/dL 5-40 Not Available [facility] ([facility]) [address] [place], [address], 05/15/2023 20:36:42 05/09/19 24 05/10/2023 LIPID PANEL LDL chol calc ([facility]) 91 mg/dL 0-99 Not Available [facility] ([facility]) [address] [place], [address], 05/15/2023 20:36:42 05/09/19 24 05/10/2023 LIPID PANEL comment: DIRECTOR VIDEO Not Available [facility] ([facility]) [address] [facility], [place], [address], 05/15/2023 20:36:42 05/09/19 24 05/13/2023 VITAM IN E vitamin E(alpha tocopherol) 10.3 mg/L 7.0-25 .1 Not Available [facility] ([facility]) [address] [facility], [place], [address], 05/15/2023 20:36:43 05/09/19 24 05/13/2023 VITAM IN E vitamin E(gamma tocopherol) 1.3 mg/L 0.5-5. 5 Refer ence inter vals for alpha and gamma -toco phero l deter mined from [facility] and Nutri tion Exami natio n Surve y, 2004- 2005. Indiv idual s with alpha -toco phero l level s less than 5.0 mg/L are consi dered vitam in E defic ient. Not Available [facility] ([facility]) [address] [facility], [place], [address], 05/15/2023 20:36:43 05/09/19 24 05/10/2023 HEMOG LOBIN A1C hemoglobin A1C 6.6 % 4.8-5. 6 above high normal Predi abete s: 5.7 - 6.4 Diabe ovi: >6.4 Glyce noy contr ol for adult s with diabe ovi: <7.0 Not Available [facility] ([facility]) [address] [facility], [place], [address], 05/15/2023 20:36:44 05/09/19 24 05/10/2023 FOLAT E (FOLI C ACID) , SERUM folate (folic acid), serum >20.0 NG/mL >3.0 A serum folat e ly ntrat ion of less than 3.1 ng/mL is consi dered to repre sent clini radha defic iency . Not Available [facility] ([facility]) [address] [facility], [place], [address], 05/15/2023 20:36:45 05/09/19 24 05/13/2023 VITAM IN A, SERUM vitamin A 60.3 ug/dL 20.1-6 2.0 Refer ence inter vals for vitam in A deter mined from [facility] inter nal studi es. Indiv idual s with vitam in A less than 20 ug/dL are consi dered vitam in A defic ient and those with serum ly ntrat ions less than 10 ug/dL are consi dered sever eugenio defic ient. This test was devel oped and its perfo rmanc e julien cteri stics deter mined by [facility]. It has not been clear ed or appro delfino by the Food and Drug Admin istra tion. Not Available [facility] ([facility]) [address], [place], [address], 05/15/2023 20:36:45 05/09/19 24 05/10/2023 VITAM IN D, 25-HY DROXY vitamin D, 25-hydroxy 44.1 NG/mL 30.0-1 00.0 Vitam in D defic iency has been defin ed by the Insti tute of Medic ine and an Endoc rine Socie ty pract ice guide line as a level of serum 25-OH vitam in D less than 20 ng/mL (1,2) . The Endoc rine Socie ty went on to furth er defin e vitam in D insuf ficie ncy as a level betwe en 21 and 29 ng/mL (2). 1. IOM (Inst itute of Medic ine). 2009. Dieta ry refer ence intak es for calci um and D. Edwin garcia [place]: The Natio nal [facility] Press . 2. Frankie love MF, Kia art [place], Alirio off-F errmelanie i GAYTAN, et al. Evalu ation , treat ment, and preve ntion of vitam in D defic iency : an Endoc rine Socie ty clini radha pract ice guide line. JCEM. 2010; 96(7) :1911 -30. Not Available [facility] ([facility]) [address] [facility], [place], [address], 05/15/2023 20:36:46 05/09/19 24 05/13/2023 VITAM IN B1 (THIA MINE) , BLOOD vit. B1, whole blood 149.2 nmol/ L 66.5-2 00.0 Not Available [facility] ([facility]) [address] [facility], [place], [address], 05/15/2023 20:36:47 05/09/19 24 05/15/2023 METHY LMALO BEULAH ACID, SERUM methylmaloni c acid, serum 267 nmol/ L 0-378 Not Available [facility] ([facility]) [address] [facility], [place], [address], 05/15/2023 20:36:48 05/09/19 24 05/10/2023 PTH, INTAC T PTH, intact 28 pg/mL 15-65 Not Available [facility] ([facility]) [address] [facility], [place], [address], 05/15/2023 20:36:49 01/02/20 23 01/07/2023 elect rocar diogr am No observ ation record ed. [email or web address] [facility] [address], [place], [address], 05/09/2023 12:06:59 01/08/20 23 01/01/2023 elect rocar diogr am No observ ation record ed. [email or web address] [facility] [address], [place], [address], 05/09/2023 12:06:59 11/08/19 24 11/08/2023 elect rocar diogr am No observ ation record ed. [facility] [address], [place], [address], 11/11/2023 08:49:23 11/08/19 24 11/07/2023 elect bradford fleming am No observ ation record ed. [facility] [address], [place], [address], 11/08/2023 16:15:17 Result Notes None recorded. Problems Name Problem SNOMED Code Status Onset Date Resolution Date Notes Provider Name and Address Organization Details Recorded Time Paroxysmal atrial fibrillati on 700070199 Active 2022 Brown Pillai MD [address] [facility], [place], [address] , [place] [facility] [place] [facility] [place] 3 14:01:20 Cardiac arrhythmia 395955658 Active 2022 Brown Pillai MD [address] [facility], [place], [address] , [place] [facility] [place] [facility] [place] 3 14:02:22 Dyspnea on exertion 75541821 Active 2022 Brown Pillai MD [address] [facility], [place], [address] , [place] [facility] [place] [facility] [place] 3 14:02:29 Nicotine dependence 79565262 Active 2022 Brown Pillai MD [address] [facility], [place], [address] , [place] [facility] [place] [facility] [place] 3 14:06:52 Morbid obesity 217921637 Active 2022 Yaakov Greer DNP, APPELLATE LAW CLERK, DIRECTOR VIDEO-C [address] [facility], [place], [address] , [place] [facility] [place] [facility] [place] 3 08:22:41 Unintentio nal weight gain 9266001371004 04 Active 2022 Yaakov Greer DNP, APPELLATE LAW CLERK, DIRECTOR VIDEO-C [address] [facility], [place], [address] , [place] [facility] [place] [facility] [place] 3 08:22:48 Disorder of function of stomach 570049087 Active 2022 Yaakov Greer DNP, APPELLATE LAW CLERK, DIRECTOR VIDEO-C [address], [place], [address] , [facility] - [facility] [place] 3 08:22:54 Prediabete s 404866964 Active 2022 Yaakov Greer DNP, APPELLATE LAW CLERK, DIRECTOR VIDEO-C [address], [place], [address] , [place] [facility] & [place] 3 12:09:37 Essential hypertensi on 38599021 Active 2022 Brown Pillai MD [address], [place], [address] , [facility] - [facility] & [place] 3 14:49:58 Problem Notes None recorded. Procedures Surgical History Date Name Laterality Status Provider Name and Address Organization Details Recorded Time 016 Back Surgery completed Joy Espinal [facility] [place] 04/04/2022 10:03:14 015 Breast Surgery completed Yaakov Greer DNP, APPELLATE LAW CLERK, DIRECTOR VIDEO-C [address], [place], [address], [facility] - [facility] & [place] 08/02/2022 10:56:26 015 Knee Surgery completed Yaakov Greer DNP, APPELLATE LAW CLERK, DIRECTOR VIDEO-C [address], [place], [address], [place] - [facility] & [place] 08/02/2022 10:56:16 Hysterectomy completed Yaakov Greer DNP, APPELLATE LAW CLERK, DIRECTOR VIDEO-C [address], [place], [address], [place] [facility] & [place] 08/02/2022 10:56:34 section completed Rosalba Noel [facility] [place] 07/31/2022 11:17:18 extraction of wisdom tooth completed Rosalba Noel [facility] [place] 07/31/2022 11:17:33 ligation of bilateral fallopian tubes completed Rosalba Noel [place] [facility] [place] [facility] [place] 07/31/2022 11:17:47 cholecystectomy completed Yaakov Meeks, DNP, APPELLATE LAW CLERK, DIRECTOR VIDEO-C [address] [facility], [place], [address], [facility] - [facility] [place] & [place] 05/09/2023 10:20:48 Imaging Results None recorded. Procedure Notes None recorded. Medical Equipment None Reported. Allergies No known drug allergies Medications Name Sig Start Date Stop Date Status Note LastModified by Organization Details LastModified Time amantadine HCl 100 mg tablet Take 1 tablet daily 05/09 completed Not Available Not Available Not Available atorvastati n 40 mg tablet 04/03 completed Not Available Not Available Not Available trazodone 50 mg tablet Take 1 tablet daily active Not Available Not Available No t Available azithromyci n 250 mg tablet 01/01 completed Not Available Not Available Not Available ibuprofen 800 mg tablet 05/07 completed Not Available Not Available Not Available ibuprofen 200 mg capsule Take 1 capsule every day by oral route. 05/07 completed Not Available Not Available Not Available prednisone 20 mg tablet 04/03 completed Not Available Not Available Not Available metronidazo le 500 mg tablet active Not Available Not Available Not Available phentermine 37.5 mg tablet 04/03 completed Not Available Not Available Not Available hydrocodone 10 mg-acetamin ophen 325 mg tablet Take 1 tablet 5 times a day by oral route. 05/07 completed Not Available Not Available Not Available aspirin 81 mg tablet,tee yed release Take 1 tablet every day by oral route. active Not Available Not Available No t Available methocarbam ol 750 mg tablet 05/07 completed Not Available Not Available Not Available oxycodone-a cetaminophe n 10 mg-325 mg tablet TAKE ONE TABLET BY MOUTH FIVE TIMES DAILY NEEDED FOR PAIN MAY CAUSE DROWSINES S active Not Available Not Available No t Available gabapentin 800 mg tablet TAKE ONE TABLET BY MOUTH THREE TIMES DAILY MAY CAUSE DROWSINES S 04/03 completed Not Available Not Available Not Available buspirone 10 mg tablet Take 1 tablet daily 05/09 completed Not Available Not Available Not Available flecainide 50 mg tablet Take 1 tablet twice a day by oral route for 90 days. active Not Available Not Available No t Available metoprolol tartrate 50 mg tablet Take 1 tablet twice a day by oral route for 90 days. active Not Available Not Available No t Available gabapentin 300 mg capsule Take 1 tab active Not Available Not Available No t Available omeprazole 20 mg capsule,del ayed release Take 1 capsule every day by oral route for 90 days. active Not Available Not Available No t Available diclofenac sodium 75 mg tablet,tee yed release Take 1 tablet daily 05/09 completed Not Available Not Available Not Available allopurinol 300 mg tablet Take 1 tablet every day by oral route. active Not Available Not Available No t Available hydrochloro thiazide 25 mg tablet Take 1 tablet daily active Not Available Not Available No t Available triamterene 75 mg-hydrochl orothiazide 50 mg tablet Take 1 tablet daily 05/09 completed Not Available Not Available Not Available ergocalcife rol (vitamin D2) 1,250 mcg (50,000 unit) capsule active Not Available Not Available Not Available levofloxaci n 750 mg tablet active Not Available Not Available Not Available methylpredn isolone 4 mg tablets in a dose pack 04/03 completed Not Available Not Available Not Available albuterol sulfate HFA 90 mcg/actuati on aerosol inhaler Inhale 2 puffs every 4 hours by inhalatio n route. active Not Available Not Available No t Available loratadine 10 mg tablet TAKE ONE TABLET BY MOUTH ONCE A DAY active Not Available Not Available No t Available amoxicillin 875 mg-potassiu m clavulanate 125 mg tablet active Not Available Not Available Not Available Coreg 12.5 mg tablet Take 1 tablet twice a day by oral route for 90 days. 05/07 completed Not Available Not Available Not Available ezetimibe 10 mg tablet Take 1 tablet daily active Not Available Not Available No t Available nicotine (polacrilex ) 2 mg buccal lozenge active Not Available Not Available Not Available cyclobenzap rine 5 mg tablet Take 1 tablet daily 05/09 completed Not Available Not Available Not Available Premarin 0.625 mg/gram vaginal cream 05/07 completed Not Available Not Available Not Available duloxetine 60 mg capsule,del ayed release 04/03 completed Not Available Not Available Not Available One Daily active Not Available Not Tierra ilable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
--- OUTSIDE RECORDS SUMMARY | 2024-11-06 13:54 | XMS_ITS | Encounter Summary ---
Author Organization [place] [address] Care Team Providers Care Visitor Services Specialist Name Role Phone Santa PaulaJuana APRN Primary Care Provider [phone] Encounter Details Date Type Department Care Team (Late st Contact Info) Description 08/14/2024 Telephone [facility] [address] [place] [address] Nitin Morgan MD [address] [place] [address] Social History Tobacco Use Types Packs/Day Years [...] Date Recorded PHQ-2 Total Score 0 10/24/2023 [facility] [place] [facility] - Occupational Stress [...] encounter Miscellaneous Notes * Telephone Encounter - Lamont Lin, Clerical Staff - 08/14/2024 8:59 AM EDT lvmtcb to schedule screening colon not established pt on Kylexiga and rayic has CKD says can't drink Colyte I am holding one Plenvu in moiz offiec if pt wants that its is the only other safe for CKD documented in this encounter Plan of Treatment [...] on filedocumented in this encounter Care Teams Visitor Services Specialist Relationship Specialty Start Date End Date Juana Bailey APRN [address], BILL [address] PCP - General Nurse Practitioner-Family 08/29/22 documented as of this encounter
--- OUTSIDE RECORDS SUMMARY | 2024-11-06 13:54 | XMS_ITS | Encounter Summary ---
Author Organization 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, muscle soreness, back of legs, requesting steriod shot) Social History Tobacco Use Types Packs/Day Years [...] Date Recorded PHQ-2 Total Score 0 10/24/2023 [facility] [place] of Occupat ional Health - Occupational Stress [...] encounter Miscellaneous Notes * Telephone Encounter - Amy Xie RMA - 09/02/2024 11:23 AM EDT Select the most appropriate reason for this telephone message: Appointment Needed Appointment Requested By: Patient Provider Preference: PCP Only Type of Appt Needed: Procedure Detailed Reason for Appt: Working in [employer] x Saturday, muscle soreness, back of legs, requesting steriod shot, no bal, [employer] Requested Timeframe: this afternoon or tomorrow Reason Scheduling Assistance is Needed: Call Center not permitted to schedule Return Method of Communication: Phone Call (if you can't reach, send My Chart) Additional Information: N/A documented in this encounter [...] on filedocumented in this encounter Care Teams Micropaleontologist Relationship Specialty Start Date End Date Juana Bailey APRN [address] [place], [place] [address] PCP - General Nurse Practitioner-Family 08/29/22 documented as of this encounter
--- OUTSIDE RECORDS SUMMARY | 2024-11-06 13:54 | XMS_ITS | Encounter Summary ---
Author Organization [place] [address] Care Team Providers Care Research Chief Engineer Name Role Phone Juana Bailey APRN Primary Care Provider Reason for Visit * Reason Onset Date Comments Other 09/09/2024 tick bite Encounter Details Date Type Department Care Team (Late st Contact Info) Description 09/09/2024 Telephone SEP Nati [address] [place] [phone] Juana Bailey APRN [address] [facility] [place] [address] Other (tick bite) Social History Tobacco Use Types Packs/Day Years Used Date Smoking Tobacco: Never Smokeless Tobacco: Current Snuff Alcohol Use Standard Drinks/Week Comments Not Currently 0 (1 standard drink = 0.6 oz pur e alcohol) Overall Financial Resource Strain ([facility]) Answe r Date Recorded How hard is it for you to pa y for the very basics like food, housing, medical care, and heating? Not very hard 03/05/2023 PHQ-2 Answer Date Recorded PHQ-2 Total Score 0 10/24/2023 [facility] [place] of Occupat ional Health - Occupational Stress [...] Date doxycycline hyclate (VIBRA-TABS) 100 mg Oral Tablet Take 2 Tablets by mouth once for 1 dose. 2 Tablet 09/09/2024 documented in this encounter Miscellaneous Notes * Telephone Encounter - Hafsa Phillips MA - 09/09/2024 4:05 PM EDT Patient notified * Telephone Encounter - Juana Bailey APRN - 09/09/2024 3:31 PM EDT Just recommend a one time loading dose of doxycyline and that will help prevent her from getting any tick-borne disease or infection. I have sent that prescription to the pharmacy. * Telephone Encounter - Melina Espinoza MA - 09/09/2024 2:00 PM EDT Select the most appropriate reason for this telephone message: Other Who is calling (name & relationship to patient if not the patient): Patient What is needed OR why are they calling: Pt pulled a tick off last night and the area is red. Pt would like to know if she should come in for an appointment or watch it. When is this needed by: today Where does this information need to go: PCP Return Method of Communication: Phone Call Additional information:N/A documented in this encounter Plan of Treatment [...] on filedocumented in this encounter Care Teams Research Chief Engineer Relationship Specialty Start Date End Date Juana Bailey APRN [address] [place], [place] [address] PCP - General Nurse Practitioner-Family 08/29/22 documented as of this encounter
--- OUTSIDE RECORDS SUMMARY | 2024-11-06 13:54 | XMS_ITS | Encounter Summary ---
Author Organization [place] [address] Care Team Providers Care Tai Chi Instructor Name Role Phone Juana Bailey APRN Primary Care Provider [phone] Reason for Visit * Reason Onset Date Comments Other 09/30/2024 Asking to speak with Juana Bailey APRN Encounter Details Date Type Department Care Team (Late Contact Info) Description 09/30/2024 Telephone SEP Nati [address] [place] [address] Juana Bailey APRN [address] [place] [address] Other (Asking to speak with Juana Bailey APRN ) Social History Tobacco Use Types Packs/Day [...] Date Recorded PHQ-2 Total Score 0 10/24/2023 [facility] [place] of Occupat ional Health - Occupational Stress [...] place to sleep or slept in a chcf (including now)? No 03/05/2023 Sexually Active Control [...] Assessment Author No 10/24/2023 9:27 AM EDT Socrates, A bull Yvonne, CCMA * [...] Telephone Encounter - Sarah Crowell CCMA - 10/01/2024 11:16 AM EDT LMTRC * Telephone Encounter - Juana Bailey APRN - 10/01/2024 7:45 AM EDT Please call patient. Thanks. * Telephone Encounter - Hafsa Phillips MA - 09/30/2024 3:57 PM EDT Please advise, thank you * Telephone Encounter - Tyrone Major RMA - 09/30/2024 3:26 PM EDT Select the most appropriate reason for this telephone message: Other Who is calling (name & relationship to patient if not the patient): Patient What is needed OR why are they calling: wants to discuss the colonoscopy with you she had to cancelit today and said they was not very nice to her When is this needed by: sap Where does this information need to go: PCP Return Method of Communication: Phone Call Additional information:requesting that Juana Bailey APRN call her back documented in this encounter Plan of Treatment [...] on filedocumented in this encounter Care Teams Tai Chi Instructor Relationship Specialty Start Date End Date Juana Bailey APRN [address] [place] [address] PCP - General Nurse Practitioner-Family 08/29/22 documented as of this encounter
--- OUTSIDE RECORDS SUMMARY | 2024-11-06 13:54 | XMS_ITS | Encounter Summary ---
Author Organization [place] [address] Care Team Providers Care Enterprise Account Manager Name Role Phone Juana Bailey APRN Primary Care Provider [phone] Encounter Details Date Type Department Care Team (Late st Contact Info) Description 09/08/2024 Results Follow-Up SEP N[facility] [address] [place] [phone] Juana Bailey APRN [address] [address] MM MAMMO DIGITAL MARCO SCREEN BILAT Social History Tobacco Use Types Packs/Day Years [...] Date Recorded PHQ-2 Total Score 0 10/24/2023 [facility] [place] of Occupat ional Health - Occupational Stress [...] on filedocumented in this encounter Care Teams Enterprise Account Manager Relationship Specialty Start Date End Date Juana Bailey APRN [address] [place] [address] PCP - General Nurse Practitioner-Family 08/29/22 documented as of this encounter
--- OUTSIDE RECORDS SUMMARY | 2024-11-06 13:54 | XMS_ITS | Clinical Summary ---
[facility] Address [address] [place] [address] Care Team Providers Care Kennel Attendant Name Role Phone Klarissa Napier DROP MAN Primary Care Provider [phone]- [phone] Social History Tobacco Use Types Packs/Day Years [...] Date Last Done Comments Annual Gynecologic Pelvic and Breast Exam 1968 TDAP/TD VACCINES (1 - Tdap) 07/03/1987 MAMMOGRAM 2008 COLOGUARD 2013 COLON CANCER SCREENING 5 YEAR SIGMOIDOSCOPY 2013 COLONOSCOPY [address] CANCER SCREENING 2013 CT COLONOGRAPHY 2013 FECAL OCCULT BLOOD TEST 2013 FIT Testing (1 year) 2013 Pneumococcal Vaccine 50+ (1 of 1 - PCV) 2018 ZOSTER VACCINE (1 of 2) 2018 ANNUAL PHYSICAL 02/13/2022 HEPATITIS C SCREENING 02/13/2022 COVID-19 Vaccine (1 - season) 2023 INFLUENZA VACCINE 01/13/2025 01/15/2019 Care Teams Kennel Attendant Relationship Specialty Start Date End Date Klarissa Napier APRN [address] [place] [address] PCP - General 11/25/14
--- OUTSIDE RECORDS SUMMARY | 2024-11-06 13:54 | XMS_ITS | Encounter Summary ---
Author Organization [facility] [place] [address] Care Team Providers Care Bowling Pin Refinisher Name Role Phone LynnJuana APRN Primary Care Provider [phone] Encounter Details Date Type Department Care Team (Latest Contact Info) Description 11/04/2024 Travel Social History Tobacco Use Types Packs/Day Years [...] Date Recorded PHQ-2 Total Score 0 10/24/2023 [facility] of Occupat ional Health - Occupational Stress [...] an ideal body weight General No Noelle Yhe RMA BMI (Calculated) < 30 General 35.2(11/05/19 12:38 PM EDT) No Juana Bailey APRN Stay Tobacco Free Lifestyle No Juana Bailey APRN HEMOGLOBIN A1C < 7.0 Result Component 6.2( 1:28 PM EST) No Juana Bailey APRN documented as of this encounter Visit Diagnoses Not on filedocumented in this encounter Care Teams Bowling Pin Refinisher Relationship Specialty Start Date End Date Juana Bailey APRN [facility] [address] [place] [address] PCP - General Nurse Practitioner-Family 08/29/22 documented as of this encounter
--- OUTSIDE RECORDS SUMMARY | 2024-11-06 13:54 | XMS_ITS | Clinical Summary ---
Author Organization [facility] Address [address] [place] [address] Care Team Providers Care Digital Design Engineer Name Role Phone Gamal Queen MD Primary Care Provider [phone] Family History 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 Relation Name Comments [...] of Treatment Not on file Care Teams Digital Design Engineer Relationship Specialty Start Date End Date Gamal Queen MD Count includes the [facility] [place] [address] PCP - General 08/26/20
--- OUTSIDE RECORDS SUMMARY | 2024-11-06 13:54 | XMS_ITS | Encounter Summary ---
Author Organization [place] [address] Care Team Providers Care Print Cutter Name Role Phone [place] ColonyJuana lemon ZAHRA Primary Care Provider Reason for Visit * Reason Onset Date Comments Reschedule 09/28/2024 Encounter Details Date Type Department Care Team (Late st Contact Info) Description 09/28/2024 Telephone SEP GASTRO MOIZ [address] [place] [address] Nitin Morgan MD [address] [place] [address] Reschedule Social History Tobacco Use Types Packs/Day Years [...] Recorded PHQ-2 Total Score 0 10/24/2023 [facility] [place] of Occupat ional Health - Occupational Stress [...] Assessment Author No 10/24/2023 9:27 AM EDT Socrates Alden CHELSI Campbell documented as of this encounter Mental Status * Because of a physical, mental or emotional condition, does this person have serious difficulty concentrating, remembering or making decisions? Answer Entry Date Author No 10/24/2023 9:27 AM EDT Socrates Alden CHELSI Campbell documented in this encounter Miscellaneous Notes * Telephone Encounter - Maycol Flanagan LPN - 09/29/2024 12:44 PM EDT Instructions mailed * Telephone Encounter - Angeles Ramey, Salomonrical Staff - 09/28/2024 4:11 PM EDT Type of Prep: SUTAB SPLIT Procedure: COLON Location of procedure: [place] Date: 11/04/24 Provider: Dr Morgan Time: 1:00 pm Thinner? If so, what and how long to hold?: OZEMPIC Diet/Diabetic Holds Pt address to mail to: [address] [place] [address] [place] [address] * Telephone Encounter - Angeles Ramey Clerical Staff - 09/28/2024 4:09 PM EDT pt had an appt with CT [facility] 09/30/24 100pm pt forgot and didn't hold some her meds Ozempic she is now scheduled 11/04/24 100pm @ [facility] and would like prep instructions mailed so so won't forget to HOLD documented in this encounter Plan of Treatment [...] on filedocumented in this encounter Care Teams Print Cutter Relationship Specialty Start Date End Date Juana Bailey APRN [address] [place] [address] PCP - General Nurse Practitioner-Family 08/29/22 documented as of this encounter
--- OUTSIDE RECORDS SUMMARY | 2024-11-06 13:54 | XMS_ITS | Clinical Summary ---
Author Organization [facility] Address [address] [place], [place] [address] Phone Care Team Providers Care Channel Worker Name Role Phone Juana Bailey ZAHRA Primary Care Provider Allergies Active Allergy Reactions Criticality Noted Date Comments Acetaminophen-Codeine Hives 11/04/2024 Medications aspirin-dipyridam ole (AGGRENOX) 25-200 mg Oral Cap, Multiphasic Release 12 hr Take 1 Capsule by mouth 2 times daily. Once daily Active fish oil OTC (OMEGA-3 DHA-EPA 300 MG) 300-1,000 mg Oral Capsule, Delayed Release(E.C.) Take 2 g by mouth daily. Active b eegarxk-K-cjnlt acid (NEPHROCAP) 1 mg Oral Capsule Take [...] other day. 30 g 3 023 Active metoprolol (LOPRESSOR) 50 mg Oral Tablet TAKE ONE TABLET BY MOUTH 2 TIMES A DAY 180 Tablet 5 Active semaglutide (OZEMPIC) 2 mg/dose (8 mg/3 mL) SubQ Pen InjectorIndicatio ns:Type 2 diabetes mellitus with hyperlipidemia (HCC) Subcutaneous (Inject under the skin) 2 mg once a week. 3 mL 11 Active loratadine (CLARITIN) 10 mg Oral Tablet TAKE ONE TABLET BY MOUTH ONCE A DAY 30 Tablet Active dapagliflozin propanediol (FARXIGA) 10 mg Oral TabletIndications :Stage 3b chronic kidney disease (HCC),Type 2 diabetes mellitus with hyperlipidemia (HCC),ASHD (arteriosclerotic heart disease) TAKE ONE TABLET BY MOUTH ONCE A DAY 100 Tablet 1 Active cyanocobalamin 1,000 mcg Oral Tablet Take [...] BY MOUTH EVERY NIGHT 30 Tablet 5 Active omeprazole (PRILOSEC) 20 mg Oral Capsule, Delayed Release(E.C.) TAKE 1 CAPSULE BY MOUTH ONCE A DAY 30 Capsule 5 Active allopurinoL (ZYLOPRIM) 300 mg Oral TabletIndications :Elevated uric acid in blood TAKE ONE TABLET BY MOUTH ONCE A DAY 100 Tablet 2 Active minoxidiL (LONITEN) 2.5 mg Oral TabletIndications :Hair loss TAKE ONE TABLET BY MOUTH ONCE A DAY 30 Tablet 5 Active flecainide (TAMBOCOR) 50 mg Oral Tablet TAKE ONE TABLET BY MOUTH 2 TIMES A DAY 60 Tablet 5 025 Active hydroCHLOROthiazi de 25 mg Oral TabletIndications :Peripheral edema TAKE 1 TABLET BY MOUTH EVERY DAY 30 Tablet 4 025 Active ergocalciferol (DRISDOL) 1,250 mcg (50,000 unit) Oral Capsule TAKE 1 CAPSULE BY MOUTH ONE TIME PER WEEK 4 Capsule 5 Active ezetimibe (ZETIA) 10 mg Oral TabletIndications :Type 2 diabetes mellitus with hyperlipidemia (HCC),Statin myopathy TAKE ONE TABLET BY MOUTH ONCE A DAY 30 Tablet 2 Active Additional Information Patient not taking.Reported on 11/04/2024 topiramate (TOPAMAX) 50 mg Oral Tablet TAKE 1 TABLET BY MOUTH TWICE DAILY 60 Tablet 2 Active topiramate (TOPAMAX) 50 mg Oral Tablet Take 1 Tablet by mouth 2 times daily. 60 Tablet 2 025 2024 Discontinued Active Problems Problem Noted Date Diagnosed Date Mixed stress and urge incontinence 08/11/2024 Vitamin D deficiency 10/24/2023 Overview (10/24/2023): On [...] in blood 10/25/2022 Overview (03/21/2023): On allopurinol Assessment & Plan (05/07/2024 1:17 PM EST): On allopurinol, no recent gout Orders: URIC ACID; Future Paroxysmal atrial fibrillation 10/25/2022 RADHA (obstructive sleep apnea) 10/25/2022 Type 2 diabetes mellitus with hyperlipidemia 02/2023 Overview (12/24/2023): Lab Results Component Value Date HGBA1C 6.1 (H) 10/24/2023 HGBA1C 6.3 (H) 06/21/2023 HGBA1C 6.9 (H) 03/21/2023 Metformin intolerance. on farxiga for dual mgmt of CKD and ozempic. Statin intolerance. On zetia ACEi/ARB held d/t CKD Assessment & Plan (05/07/2024 1:17 PM EST): -doesn't monitor glucose -has been on ozempic; worked great first but doesn't feel as effective - increased appetite, weight gain > will see if we can get mounjaro approvded -to continue fraxiga Orders: COMPREHENSIVE METABOLIC PANEL; Future HEMOGLOBIN A1C; Future tirzepatide (MOUNJARO) 10 mg/0.5 mL SubQ Pen Injector; Subcutaneous (Inject under the skin) 10 mg once a week. Assessment & Plan (02/05/2024 9:05 AM EDT): Lab Results Component Value Date HGBA1C 6.1 (H) 10/24/2023 HGBA1C 6.3 (H) 06/21/2023 HGBA1C 6.9 (H) 03/21/2023 Successful glucose control and weight on ozempic and farxiga. Tolerating well Plans to continue. Statin intolerance, on zetia. Dyslipidemia 10/23/2022 Overview (10/24/2023): Myalgia associated with statin On zetia Assessment & Plan (05/07/2024 1:17 PM EST): Statin myopathy, on zetia Orders: LIPID PANEL REFLEX; Future Stage 3b chronic kidney disease 10/23/2022 Overview [...] Dr. Zelaya, on Percocet QID, voltaren BID Assessment & Plan (07/14/2024 8:47 AM EDT): -handicap placard renewal provided Chronic knee pain after total replacement of kne e joint 08/21/2022 Overview (08/21/2022): Pain managed by DR. ZELAYA Uses gabapentin/ketamine compound. Seasonal allergic rhinitis 08/21/2022 Morbid obesity 08/02/2022 Overview (07/14/2024): Wt Readings from Last 3 Encounters: 07/14/24 220 lb (99.8 kg) 05/07/24 224 lb (101.6 kg) 03/24/24 218 lb (98.9 kg) Starting wt at 303 Sig improvement on ozempic. Assessment & Plan (07/14/2024 8:47 AM EDT): - need for calorie deficit for continued weight loss. Recommend increasing exercise - encouraged nonweight bearing exercises d/t arthritis and/or walking. Assessment & Plan (05/07/2024 1:17 PM EST): Wt Readings from Last 3 Encounters: 05/07/24 224 lb (101.6 kg) 03/24/24 218 lb (98.9 kg) 02/05/24 215 lb (97.5 kg) Having some weight gain, will switch to mounjaro Cardiac arrhythmia 07/04/2022 Nicotine dependence 07/04/2022 Resolved [...] Encounters Date Type Department Care Team Description 11/04/2024 2:07 PM EDT Anesthesia Event [facility] [address] [place] [id number] Zeb Tamayo CRNA KeshawnSrinivas fofana L, PLUMBING INSTRUCTOR 11/04/2024 11:58 AM EDT - 11/04/2024 11:59 PM EDT Hospital Encounter [facility] [address] [place] [id number] Nitin Morgan MD Ansari, Camron R, IRVIN Screening for colon cancer Discharge Disposition: Home or Self Care 11/04/2024 Travel 11/01/2024 Refill [facility] [place] [address] [place] [phone] Wesson, Juana, PLUMBING INSTRUCTOR Medication Refill 09/30/2024 Telephone [place] [address] [place] [phone] Lynn, Juana, PLUMBING INSTRUCTOR Other (Asking to speak with Juana Lynn PLUMBING INSTRUCTOR ) 09/28/2024 11:59 PM EDT Anesthesia Event [facility] [address], [address] [address] Srinivas Liao, PLUMBING INSTRUCTOR 09/28/2024 Telephone [facility] [address], [address] [place] [address] Nitin Morgan MD Reschedule 09/16/2024 2:30 PM EDT Office Visit [place] [address] [place] [phone] Wesson, Juana, PLUMBING INSTRUCTOR Tick bite, unspecified site, initial encounter (Primary Dx) 09/09/2024 Telephone [place] [address] [place] [phone] Wesson, Juana, PLUMBING INSTRUCTOR Other (tick bite) 09/08/2024 Results Follow-Up [place] [address] [place] [phone] Wesson Juana, PLUMBING INSTRUCTOR MM MAMMO DIGITAL MARCO SCREEN BILAT 09/04/2024 1:45 PM EDT Office Visit [facility] [place] [address] [place] [address] Lynn, Juana, PLUMBING INSTRUCTOR Muscle strain (Primary Dx) 09/02/2024 Telephone SEP [address] [place] [phone] Wesson, Juana, PLUMBING INSTRUCTOR Appointment Needed (Working in garden x Saturday, muscle soreness, back of legs, requesting steriod shot) 08/31/2024 11:20 AM EDT - 08/31/2024 11:59 PM EDT Hospital Encounter [facility] [address] [place] [address] Lynn, Juana, PLUMBING INSTRUCTOR Encounter for screening 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 cancer Discharge Disposition: Home or Self Care 08/30/2024 Refill SE[facility] [address] [place] [phone] Wesson, Juana, PLUMBING INSTRUCTOR Medication Refill 08/22/2024 Refill SE[facility] [address] [place] [phone] Lynn, Juana, PLUMBING INSTRUCTOR Medication Refill 08/21/2024 Telephone [facility] [address], [address] [address] Nitin Morgan MD 08/19/2024 9:00 AM EDT Office Visit [address] [place] [phone] Wesson, Juana, PLUMBING INSTRUCTOR Change in stool (Primary Dx); Left sided abdominal pain 08/14/2024 Telephone [facility] [address], [address] [address] Nitin Morgan MD 08/13/2024 Patient Outreach [facility] [address] [place] [id number] Lynn, Juana, PLUMBING INSTRUCTOR Central Order Completion Outreach (Mammogram) 08/10/2024 Refill [facility] [address] [place] [phone] Juana Bailey APRN Medication Refill from Last 3 Months Immunizations Immunization Administration Dates Next Due Influenza Seasonal Injectable 01/13/2015, 012 Influenza, Injectable,Quadrivalent,PF,Pediatric 01/15/2019 PPD Test 12/18/2022 Surgical History Surgery Date Site/Laterality Comments BACK SURGERY 10/14/2015 - 11/13/2015 T9-T10 spinal fx requiring olga. TUBAL LIGATION SECTION 04/15/1987 - 04/14/1988 CHOLECYSTECTOMY BREAST REDUCTION SURGERY TOTAL KNEE ARTHROPLASTY Bilateral 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 Date Comments Hypertension Migraines Irregular heart beat Normocytic anemia 10/23/2022 Sleep apnea A-fib (HCC) Family History 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 Relation Name Comments [...] Score 0 10/24/2023 [facility] - Occupational Stress [...] money to buy more. Never true 03/05/20 Within the past 12 months, t he [...] Sexual Orientation Not on file Obstetrics History Para Term AB IAB SAB Ectopic Multiple Livin g Live Births 3 Last Filed Vital Signs Vital Sign Reading [...] Mass Index 35.11 11/04/2024 12:38 PM EDT Plan of Treatment Health Maintenance Due Date Last Done Comments DTaP/TDaP/Td (1 - Tdap) 07/03/1987 Hepatitis B Vaccine (1 of 3 - 19+ 3-dose series) 07/03/1987 Pneumococcal Vaccine 50+ (1 of 2 - PCV) 07/03/1987 FIT 2013 Sigmoidoscopy 2013 Virtual Colonography 2013 Zoster (1 of 2) 2018 COVID-19 Vaccine (1 - season) 2023 Annual Wellness Exam 10/23/2024 10/24/2023 Kidney Health: uACR 10/23/2024 10/24/2023, Hemoglobin A1c 11/04/2024 05/07/2024, 12/0 08/2023, 10/24/2023, Additional history exists Influenza Vaccine (#1) 2024 9, 01/13/2015, 01/16/2012 Cologuard 04/16/2025 04/16/2022 Kidney Health: eGFR 05/07/2025 05/07/2024, 10/24/2023, 06/21/2023, Additional history exists Lipids 05/07/2025 05/07/2024, 10/13, 10/24/2023, Additional history exists Diabetic Eye Exam 12/23/2025 12/24/2023, 02/20/2022 Pap Smear 05/22/2026 05/22/2023 Breast Cancer Screening 08/31/2026 08/31/2024 Cervical Cancer Screening 05/22/2028 HPV/Pap Cotest 05/22/2028 05/22/2023 Colon Cancer Screening 11/02/2034 Colonoscopy 11/02/2034 11/04/2024 Meningococcal B Vaccine Aged Out No l onger eligible based on patient's age to complete this topic Goals Goal Patient Goal Type Associated Problems Recent Progress Patient-Stated? Author Blood Pressure < 140/90 Blood Pressure 103/69(2024 2:49 PM EDT) No Juana Bailey APRN Maintain a healthy diet, exercise regularly and maintain an ideal body weight General No Noelle Yeh RMA BMI (Calculated) < 30 General 35.2(11/05/19 12:38 PM EDT) No Wesson, Juana, PLUMBING INSTRUCTOR Stay Tobacco Free Lifestyle No Wesson, Juana, PLUMBING INSTRUCTOR HEMOGLOBIN A1C < 7.0 Result Component 6.2( 1:28 PM EST) No Wesson, Juana, PLUMBING INSTRUCTOR Procedures Procedure Name Priority Date/Time Associated Diagnosis Comments COLONOSCOPY Routine 11/04/2024 2:28 PM EDT Screening for colon cancer INTRAOP AIRWAY PLACEMENT Routine 11/04/2024 2:12 PM EDT GLUCOSE METER POC Routine 11/04/2024 1:0 4 PM EDT MM OUTSIDE FILMS FOR COMPARISON Routine 09/08/2024 10:31 AM EDT MM OUTSIDE FILMS FOR COMPARISON Routine 09/08/2024 10:31 AM EDT MM OUTSIDE FILMS FOR COMPARISON Routine 09/08/2024 10:30 AM EDT MM OUTSIDE FILMS FOR COMPARISON Routine 09/08/2024 10:30 AM EDT MM MAMMO DIGITAL MARCO SCREEN BILAT Routine 08/31/2024 11:36 AM EDT Encounter for screening 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 cancer COMPREHENSIVE METABOLIC PANEL Routine 05/07/2024 1:28 PM EST Type 2 diabetes mellitus with hyperlipidemia (HCC) LIPID PANEL REFLEX Routine 05/07/2024 1: 28 PM EST Dyslipidemia HEMOGLOBIN A1C Routine 05/07/2024 1:28 PM EST Type 2 diabetes mellitus with hyperlipidemia (HCC) MICROALBUMIN/CREATINI NE RATIO URINE Routine 10/24/2023 11:36 AM EDT Type 2 diabetes mellitus with hyperlipidemia (HCC) [employer]ER[employer]WN SPECIALIST CYTOLOGY REQUEST (PAP ONLY) Routine 05/22/2023 9:58 AM EST Cervical cancer screening Screening for STDs (sexually transmitted diseases) HM DIABETES EYE EXAM Routine 02/20/2022 8:43 AM EST from Last 3 Months or Most Recently Relevant to Health Maintenance Results * COLONOSCOPY (11/04/2024 2:28 PM EDT) [...] MD Performing Provider IRVIN Lamar CRNA, PETER Bowl Topper Bárbara Leyva RN Endoscopy Nurse Medications See [...] Patient In - Proc. Room 02:07 PM us Nitin Morgan MD ENDOSCOPY PROCEDURE ORDERABL ES Final Result * INTRAOP AIRWAY PLACEMENT (11/04/2024 2:12 PM EDT) Narrative [facility] - 11/04/2024 2:12 PM EDT Zeb Tamayo CRNA 11/04/2024 2:12 PM Intraop Airway Placement: Date/Time: 11/04/2024 2:12 PM Airway type: Nasal cannula salter us Zeb Tamayo TERRITORY BUSINESS MANAGER AL ANESTHESIA Final Resul t Performing Organization Address [facility] de Phone Number [facility] [address] [place] [address] * GLUCOSE METER POC (11/04/2024 1:04 PM EDT) [facility] Glucose Meter POC 73 70 - 100 mg/dL 11/04/2024 1:05 PM EDT [facility] Sample Type Capillary 11/04/2024 1:05 PM EDT [facility] Patient Status Non-Critical Patient 11/04/2024 1:05 PM EDT [facility] Blood BLOOD SPECIMEN / Unknown 11/04/2024 1:04 PM EDT 11/04/2024 1:05 PM EDT Nitin Morgan MD POINT OF CARE TEST ORDERABLE S Final Result Performing Organization Address [facility] de Phone Number [facility] [address] [place] [address] * MM OUTSIDE FILMS FOR COMPARISON (09/08/2024 10:31 AM EDT) Only the most recent of4 resultswithin the time period is included. us Unknown Provider IMG MAMMOGRAPHY ORDERABLES Bindu jeffery Result Performing Organization Address [facility] de Phone Number PACS * MM MAMMO DIGITAL MARCO SCREEN BILAT (08/31/2024 11:36 AM EDT) Anatomical Region Laterality Modality Breast Bilateral Mammography 08/31/2024 11:3 6 AM EDT Impressions 09/08/2024 10:50 AM EDT Negative ([id number]) RECOMMENDATION: Routine Screening Mammogram in 1 Year Bilateral . . COMMENTS: DISCLAIMER *The patient was notified by MyChart or mail of the results for this examination. *The patient's information was entered into a reminder system with a target due date for the next breast imaging, in accordance with the [place] [employer] and the Society of Breast Imaging recommendations. *Breast Imaging has a false negative rate of 15%. *Any patient with a palpable abnormality, unexplained by breast imaging, should be managed on a clinical basis by the attending physician. Narrative 09/08/2024 10:50 AM EDT EXAM: MM MAMMO DIGITAL MARCO SCREEN BILAT EXAM DATE: 08/31/2024 11:36 AM INDICATION: Z12.31-Encounter for screening mammogram for malignant neoplasm of [id number] COMPARISON STUDIES: Outside films from [facility] dated 09/26/2020. TISSUE DENSITY: There are scattered areas of fibroglandular density. FINDINGS: No mammographic evidence of malignancy. Procedure Note Allie Higginbotham MD - 09/08/2024 EXAM: MM MAMMO DIGITAL MARCO SCREEN BILAT EXAM DATE: 08/31/2024 11:36 AM INDICATION: Z12.31-Encounter for screening mammogram for malignantneoplasm of [id number] COMPARISON STUDIES: Outside films from [facility] dated09/26/2020. TISSUE DENSITY: There are scattered areas of fibroglandular density. FINDINGS: No mammographic evidence of malignancy. IMPRESSION: Negative ([id number]) RECOMMENDATION: Routine Screening Mammogram in 1 Year Bilateral . . COMMENTS: DISCLAIMER *The patient was notified by MyChart or mail of the results for this examination. *The patient's information was entered into a reminder system with atarget due date for the next breast imaging, in accordance with the [employer] and the Society of Breast Imaging recommendations. *Breast Imaging has a false negative rate of 15%. *Any patient with a palpable abnormality, unexplained by breast imaging,should be managed on a clinical basis by the attending physician. us Juana Bailey APRN [facility] MAMMOGRAPHY ORDERABLES Final Result * (ABNORMAL) LIPID PANEL REFLEX (05/07/2024 1:28 PM EST) Cholesterol 173 <200 mg/dL 05/07/2024 8:03 PM EST [facility] Comment: < 200 Desirable 200 - 239 Borderline High >= 240 High Triglyceride 129 <150 mg/dL 05/07/2024 8:03 PM EST [facility] Comment: < 150 Normal 150 - 199 Borderline High 200 - 499 High >= 500 Very High HDL 49 >=40 mg/dL 05/07/2024 8:03 PM EST [facility] [employer] [facility] Comment: > 60 Optimal 40 - 60 Acceptable < 40 Low LDL Calculated 101(H) <100 mg/dL 05/07/2024 8:03 PM EST [facility] Non-HDL-C Calculated 124 <=129 mg/dL 05/07/2024 8:03 PM EST [facility] Comment: <130 Desirable 130-159 Above Desirable 160-189 Borderline High 190-219 High >= 220 Very High Fasting Specimen? No None 025 8:03 PM EST [facility] Blood VENOUS BLOOD / Unknown Venipuncture / Unknown 05/07/2024 1:28 PM EST 05/07/2024 1:28 PM EST Juana Bailey PLUMBING INSTRUCTOR CHEMISTRY ORDERABLES Final Result [facility] [address] [facility] , [place] [address] [facility] [address] [place] [address] * (ABNORMAL) HEMOGLOBIN A1C (05/07/2024 1:28 PM EST) [facility] Signature Hgb A1C 6.2(H) 4.2 - 5.6 % 05/07/2024 8:09 PM EST [facility] [employer] [facility] Est. Avg Glucose 131 mg/dL 05/07/2024 8:09 PM EST [facility] Blood VENOUS BLOOD / Unknown Venipuncture / Unknown 05/07/2024 1:28 PM EST 05/07/2024 1:28 PM EST Narrative [facility] [employer] [facility] - 05/07/2024 8:09 PM EST REFERENCE RANGE: Normal: 4.0-5.6% Pre-diabetes: 5.7-6.4% Provisional diagnosis of diabetes: >6.4% Hgb F>10% and anything which shortens red cell survival, such as hemolytic anemia, or unstable hemoglobin variants such as HbSS, HbSC, or HbCC, will lower the HbA1c value associated with a given level of glycemic control. Juana Bailey PLUMBING INSTRUCTOR CHEMISTRY ORDERABLES Final Result [facility] [address] [facility] , [address] [place] [id number] [facility] [address] [place] [address] * (ABNORMAL) COMPREHENSIVE METABOLIC PANEL (05/07/2024 1:28 PM EST) Sodium 141 136 - 145 mmol/L 05/07/2024 8:03 PM EST [facility] Potassium 4.1 3.5 - 5.0 mmol/L 05/07/2024 8:03 PM EST [facility] Chloride 101 98 - 107 mmol/L 05/07/2024 8:03 PM EST [facility] Total CO2 29 22 - 29 mmol/L 05/07/2024 8:03 PM EST [facility] Anion Gap 11 7 - 16 mmol/L 05/07/2024 8:03 PM EST [facility] Calcium 9.9 8.6 - 10.4 mg/dL 05/07/2024 8:03 PM EST [facility] Glucose Lvl 99 70 - 99 mg/dL 05/07/2024 8:03 PM EST [facility] BUN 22(H) 6 - 20 mg/dL 05/07/2024 8:03 PM EST [facility] Creatinine 0.75 0.51 - 1.30 mg/dL 05/07/2024 8:03 PM EST [facility] Albumin 4.3 3.5 - 5.2 gm/dL 05/07/2024 8:03 PM EST [facility] Total Protein 7.6 6.4 - 8.3 gm/dL 05/07/2024 8:03 PM EST [facility] Bili Total 0.4 0.2 - 1.3 mg/dL 05/07/2024 8:03 PM EST [facility] ALT 17 <=41 U/L 05/07/2024 8:03 PM EST [facility] AST 20 <=40 U/L 05/07/2024 8:03 PM EST [facility] Alk Phos 113 36 - 123 U/L 05/07/2024 8:03 PM EST [facility] eGFR (CKD-EPIcr 2020) 94 >=60 mL/min/1.7 3 m2 05/07/2024 8:03 PM EST [facility] Comment:Estimated GFR was ca lculated using the CKD-EPIcr (2020) equation refit without race. The equation is recommended by the National Kidney Foundation - [place] [employer]ph[employer] Task Force. Blood VENOUS BLOOD / Unknown Venipuncture / Unknown 05/07/2024 1:28 PM EST 05/07/2024 1:28 PM EST Juana Bailey PLUMBING INSTRUCTOR CHEMISTRY ORDERABLES Final Result [facility] [address] [facility] [address] [place] [id number] [facility] [address] [place] [address] * MICROALBUMIN/CREATININE RATIO URINE (10/24/2023 11:36 AM EDT) Urine Microalb <12.0 mg/L 10/24/2023 4:23 PM EDT [facility] Urine Creatinine 96.8 mg/dL 10/24/19 24 4:23 PM EDT [facility] Ur Microalb/Creat 024 4:23 PM EDT [facility] Comment: Because the albumin level is below the level of detection in this urine specimen, the laboratory is unable to calculate a reliable albumin/creatinine ratio. Microalbuminuria is unlikely if the urine albumin concentration is less than 20- 30 mg/L in a random specimen. Urine URINE SPECIMEN COLLECTION / Unknown 10/24/2023 11:36 AM EDT 10/24/2023 11:36 AM EDT us Juana Bailey PLUMBING INSTRUCTOR URINE ORDERABLES Final Resu lt [facility] [employer] [address] [place] [address] , [address] [place] [id number] * [employer]ERCIAL [employer]WN SPECIALIST CYTOLOGY REQUEST (PAP ONLY) (05/22/2023 9:58 AM EST) CASE REPORT Gynecologic Cytology Report Case: [id number] Authorizing Provider: Juana Bailey APRN Collected: 05/22/202358 Ordering Location: [facility] Received: 05/22/2023957 First Screen: Jose Douglas CT Specimen: LIQUID-BASED PAP - CERVICAL/ENDOCERV ICAL, Cervix, Endocervical 05/25/2023 1:17 PM EST [facility] PAP FINAL DIAGNOSIS Negative for intraepithelial lesion or malignancy 05/25/2023 1:17 PM [facility] at 1317 EST MICROSCOPIC DESCRIPTION Microscopic examination is performed and the findings corroborate the diagnosis. 05/25/2023 1:17 PM EST [facility] PAP SMEAR ADEQUACY Satisfactory for evaluation 05/25/2023 1:17 PM EST [facility] PAP ORGANISMS NOTED Shift in claus suggestive of bacterial vaginosis. 05/25/2023 1:17 PM EST [facility] ENDOCERVICAL T-ZONE Transformation Zone Absent. This is not unusual in a post-menopausal woman. 05/25/2023 1:17 PM EST [facility] EMBEDDED IMAGES 1:17 PM EST [facility] PAP DISCLAIMER The Pap Smear is a screening test that aids in the detection of cervical cancer and cancer precursors. Both false positive and false negative results can occur. The test should be used at regular intervals, and positive results should be confirmed before definitive therapy. Processed using the [employer] Staff Interpreter Automated cytology screening device (manetch). 05/25/2023 1:17 PM EST [facility] [employer] ENDOCERVICAL STRUCTURE / Unknown 05/22/2023 9:58 AM EST 05/22/2023 9:58 AM EST us Juana Bailey PLUMBING INSTRUCTOR CYTOLOGY ORDERABLES Final R esult [facility] [address] [place] [address] * DIABETES EYE EXAM (02/20/2022 8:43 AM EST) Left Diabetic Retinopathy Not Present Present/Not Present SEP OFFICE Right Diabetic Retinopathy Not Present Present/Not Present SEP OFFICE us Historical Provider Generic HEALTH MAINTENANCE E dited Result - Final SEP OFFICE from Last 3 Months or Most Recently Relevant to Health Maintenance Insurance BILL [place] [id number] [employer] [place] [address] BILL [place] [id number] [facility] [place] [address] Care Teams Channel Worker Relationship Specialty Start Date End Date Juana Bailey APRN [address] [place], BILL [phone] PCP - General Nurse Practitioner-Family 08/29/22
--- OUTSIDE RECORDS SUMMARY | 2024-11-06 13:54 | XMS_ITS | Encounter Summary ---
Author Organization [place] [address] Care Team Providers Care Material Preparation Worker Name Role Phone TalentArnoldoJuana ZAHRA Primary Care Provider [phone] Encounter Details Date Type Department Care Team (Late st Contact Info) Description 08/21/2024 Telephone SEP [facility] [address], [address] [place] [address] Nitin Morgan MD [address] [place] [address] Social History Tobacco Use Types [...] Date Recorded PHQ-2 Total Score 0 10/24/2023 [facility] of Occupat ional Health - Occupational Stress [...] Encounter - Lamont Lin, Clerical Staff - 09/18/2024 2:34 PM EDT pt came in today and picked up sutab sample and we went over instructions * Telephone Encounter - Lamont Lin Clerical Staff - 08/24/2024 12:09 PM EDT spoke to pt [facility]ab and instructions ok per [place] * Telephone Encounter - Nitin Morgan MD - 08/24/2024 9:38 AM EDT She can do the pills. Her GFR is fine. * Telephone Encounter - Lamont Lin Clerical Staff - 08/21/2024 12:[address] Morgan, this pt is scheduled in September with you for colon we Mini gave her Plenvu but pt insisted she can't drink it it makes her sick she only wants the pills but she had Kidney disease on her list can you take a look and see if the pills are ok or if she really does need to do plenvu? please advise documented in this encounter Plan [...] on filedocumented in this encounter Care Teams Material Preparation Worker Relationship Specialty Start Date End Date Juana Bailey APRN [address] [place], B[place] [id number] PCP - General Nurse Practitioner-Family 08/29/22 documented as of this encounter
--- OUTSIDE RECORDS SUMMARY | 2024-11-06 13:54 | XMS_ITS | Encounter Summary ---
Author Organization [place] [address] Care Team Providers Care Power Plant Inspector Name Role Phone Juana Bailey APRN Primary Care Provider [phone] Reason for Visit * Reason Comments Medication Refill Encounter Details Date Type Department Care Team (Late st Contact Info) Description 11/01/2024 Refill SEP [facility] [address] [place] [phone] Juana Bailey APRN [address] [facility] [place] [address] Medication Refill Social History Tobacco Use Types Packs/Day Years Used Date Smoking Tobacco: Never Smokeless Tobacco: Current Snuff Alcohol Use Standard Drinks/Week Comments Not Currently 0 (1 standard drink = 0.6 oz pur e alcohol) Overall Financial Resource Strain ([facility]) Answe r Date Recorded How hard is it for you to pa y for the very basics like food, housing, medical care, and heating? Not very hard 03/05/2023 PHQ-2 Answer Date Recorded PHQ-2 Total Score 0 10/24/2023 [facility] of Occupat ional Health - Occupational Stress [...] Refills Last Filled Start Date End Date topiramate (TOPAMAX) 50 mg Oral Tablet TAKE 1 TABLET BY MOUTH TWICE DAILY 60 Tablet 2 11/02/2024 documented in this encounter Plan of Treatment [...] Discontinue Reason Start Date End Da te topiramate (TOPAMAX) 50 mg Oral Tablet Take 1 Tablet by mouth 2 times daily. 07/21/2024 11/02/2024 documented as of this encounter Care Teams Power Plant Inspector Relationship Specialty Start Date End Date Juana Bailey APRN [address] [place], [place] [address] PCP - General Nurse Practitioner-Family 08/29/22 documented as of this encounter
[2024-11-06 14:20] VITALS: BP 113/69; PULSE 73; RESP 18; O2SAT 97; BMI 33.3
--- NOTE | 2024-11-06 14:28 | EXP.PAIN.SOA ---
[facility] Disclaimer: The information contained in this section may have been updated after the patient was seen, as this information can be updated by other users. 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) Family history of cancer Family history of diabetes mellitus type II Family history of myocardial infarction Social History Smoking Status: Former smoker tobacco type: smokeless tobacco second hand exposure: No alcohol intake: never substance use type: denies use current occupational status: other Travel in the last 8 weeks?: None household members: spouse housing: house current occupational exposures/hazards: No caffeine: Yes PM Subjective & Objective Subjective Subjective:: Patient is a pleasant 54-year-old female who presents today for follow-up of her right SI and right bursa injection on 10/23/2024. Patient does state that she had at least 75 to 80% improvement following these injections and they did really help. She does feel like they have already started to wear off however. She rates her pain today a 5 out of 10. She denies any new falls or injuries. Patient is currently managed with Percocet 10 mg 5 times a day and gabapentin 300 mg at bedtime. Patient is asking if we can make any adjustments on her. Her Evans has been reviewed and is appropriate. Review of Systems: General: No recent weight changes, no fever, no sleep disturbances Respiratory: No cough, no shortness of air, no recurring pulmonary infections Cardiovascular/peripheral vascular: No chest pain, no palpitations, no edema, no shortness of breath Gastrointestinal: No new onset incontinence, normal bowel movements reported Genitourinary: No new onset incontinence Musculoskeletal: Low back pain Psychiatric: [Normal mood/affect] Neurological: [Denies weakness in extremities], [denies balance issues] Pain at rest (0-10 scale): 5 Objective Objective:: Physical Exam: General: Alert and oriented x3, no acute distress, pleasant and cooperative Lungs: Respirations even and unlabored, symmetrical chest expansion Eyes: PERRL Musculoskeletal: Flexion and extension of lumbar [spine] somewhat guarded secondary to pain, [antalgic gait noted] Neurological: Speech clear, no gross sensory deficit Has patient had previous pain injection?: Yes Percent improvement in pain since last injection: 80% Conservative treatment options previously tried: Home exercise plan Length of treatment: Longer than 12 weeks Meds Home Medications and Allergies Home Medications ?Medication ?Instructions ?Recorded ?Confirmed ?Type allopurinol 300 mg tablet 300 mg PO DAILY 01/28/24 10/23/24 History dapagliflozin propanediol 10 mg 10 mg PO DAILY 01/28/24 10/23/24 History tablet (Farxiga) ergocalciferol (vitamin D2) 1,250 1,250 mcg PO WEEKLY 01/28/24 10/23/24 History mcg (50,000 unit) capsule ezetimibe 10 mg tablet 10 mg PO DAILY 01/28/24 10/23/24 History flecainide 50 mg tablet 50 mg PO DAILY 01/28/24 10/23/24 History hydrochlorothiazide 25 mg tablet 25 mg PO DAILY 01/28/24 10/23/24 History loratadine 10 mg tablet 10 mg PO DAILY 01/28/24 10/23/24 History metoprolol tartrate 50 mg tablet 50 mg PO DAILY 01/28/24 10/23/24 History omeprazole 20 mg capsule,delayed 20 mg PO DAILY 01/28/24 10/23/24 History release trazodone 50 mg tablet 50 mg PO DAILY 01/28/24 10/23/24 History qrrysjbtayfeoyf-jtmurqtgmmfmdpw-QT 5 ml PO Q6H PRN cold symptoms 7 06/18/24 10/23/24 Rx 2 mg-30 mg-10 mg/5 mL oral syrup days #118 mL ibuprofen 800 mg tablet 800 mg PO TID PRN pain 7 days #20 06/18/24 10/23/24 Rx tabs ondansetron 4 mg disintegrating 4 mg PO Q6H PRN nausea and 06/18/24 10/23/24 Rx tablet vomiting 5 days #20 tabs gabapentin 300 mg capsule 300 mg PO DAILY #30 caps 08/17/24 10/23/24 Rx oxycodone-acetaminophen 10 mg-325 1 tab PO 5XDAY #150 tabs 10/19/24 10/23/24 Rx mg tablet New Prescriptions to Start Prescriptions: Allergies Allergy/AdvReac Type Severity Reaction Status Date / Time No Known Allergies Allergy Verified 05/22/24 14:20 Assessment and Plan *Assessment and plan (1) Sacroiliitis: Status: Acute Category: Medical Code(s): M46.1 - Sacroiliitis, not elsewhere classified (2) Trochanteric bursitis of right hip: Status: Acute Category: Medical Code(s): M70.61 - Trochanteric bursitis, right hip (3) Degenerative disc disease, lumbar: Status: Acute Category: Medical Code(s): M51.369 - Other intervertebral disc degeneration, lumbar region without mention of lumbar back pain or lower extremity pain Plan I did discuss with the patient that I will go ahead and send in a refill of her Percocet however this is early and she will not be able to pick it up until is to do and I will also make the adjustment to her gabapentin to 400 mg at bedtime. Patient will return to clinic in 1 month for reevaluation of symptoms and plan of care. Risks and benefits of the medication have been explained in detail to the patient. The patient does understand the risk of dependence on the medication when given over a prolonged period. Patient has been advised of risks of oversedation with the prescribed medication. Narcan has been offered to the paitent in the event of oversedation. Patient has been advised that a family member should also be educated regarding administration of Narcan. The patient has been advised to consult with his/her primary care provider and pharmacist regarding drug-drug interaction of medications currently prescribed. Patient has been prescribed a controlled substance after being counseled on the medication, medication safety, and possible side effects. Opioid contract was reviewed and signed by the patient, and that they have agreed to all of the terms set forth by our compliance program. A UDS is needed to verify patient's compliance with our office pain contract. This is ordered based off specific treatments related to chronic pain with the potential to abuse certain medications. Patient has been instructed to contact the clinic with any concerns before the next appointment. Dr. Zelaya has reviewed this note and agrees with this plan of care. This note was dictated using voice recognition software and make contain errors or omissions.
== END 2024-11-06 23:59 | disposition home or self-care (01) ==
PROVIDERS: PCP Nurse Practitioner; Visit Provider Nurse Practitioner Family
DX: M46.1 Sacroiliitis, not elsewhere classified (principal); M70.61 Trochanteric bursitis, right hip; M51.360 Other intervertebral disc degeneration, lumbar region with discogenic back pain only; Z79.891 Long term (current) use of opiate analgesic
CPT/HCPCS: 99212; G0463

== ENCOUNTER 2024-12-07 10:31 | Outpatient (POV) | payer OTHER, SELFPAY ==
--- OUTSIDE RECORDS SUMMARY | 2024-11-04 11:58 | XMS_ITS | Encounter Summary ---
Author Organization [place] [address] Care Team Providers Care Senior Firewall Engineer Name Role Phone Lynn, Juana ZAHRA Primary Care Provider [phone] Reason for Referral * Surgical (Routine) - Authorization Not Needed Specialty Diagnoses / Procedures Referred By Contac t Referred To Contact Gastroenterology Diagnoses Screening for colon cancer Procedures COLONOSCOPY DC COLORECTAL SCRN; HI RISK IND DC COLONOSCOPY FLX W/ENDOSCOPIC MUCOSAL RESECTION Nitin Morgan MD [address] [place] [address] Phone: tel: fax: Referral ID Status Reason Start Date Expiration Date Visits Requested Visits Authorized [id number] Authorization Not Needed 08/19/2024 08/19/2025 1 1 Reason for Visit * Surgical (Routine) - Authorization Not Needed Specialty Diagnoses / Procedures Referred By Contac t Referred To Contact Gastroenterology Diagnoses Screening for colon cancer Procedures COLONOSCOPY DC COLORECTAL SCRN; HI RISK IND DC COLONOSCOPY FLX W/ENDOSCOPIC MUCOSAL RESECTION Nitin Morgan MD [address] [place] [address] Phone: tel: fax: Referral ID Status Reason Start Date Expiration Date Visits Requested Visits Authorized [id number] Authorization Not Needed 08/19/2024 08/19/2025 1 1 Encounter Details Date Type Department Care Team (Latest Contact Info) Description 11/04/2024 11:58 AM EDT - 11/04/2024 11:59 PM EDT Hospital Encounter [facility] [address] [place] [address] Nitin Morgan MD [address] [place], [place] [id number] Zeb Tamayo CRNA [address] [place] [phone] Screening for colon cancer Discharge Disposition: Home or Self Care Social History Tobacco Use Types Packs/Day Years [...] Date Recorded PHQ-2 Total Score 0 10/24/2023 [facility] - Occupational [...] Sign Reading Time Taken Comments Blood Pressure 103/69 11/04/2024 2:49 PM EDT Pulse 78 11/04/2024 2:49 PM EDT Temperature 36.3 C (97.3 F) 11/04/2024 2:30 PM EDT Respiratory Rate 18 11/04/2024 2:49 PM EDT Oxygen Saturation 98% 11/04/2024 2:49 PM EDT Inhaled Oxygen Concentration - - Weight 95.7 kg (211 lb) 11/04/2024 12:38 PM EDT Height 165.1 cm (5' 5 ) 11/04/2024 12:38 PM EDT Body Mass Index 35.11 11/04/2024 12:38 PM EDT documented in this encounter Functional [...] of Assessment Author No 10/24/2023 9:27 AM MIRIAM CrowellAlden CHELSI Campbell documented as of this encounter Mental Status * Because of a physical, mental or emotional condition, does this person have serious difficulty concentrating, remembering or making decisions? Answer Entry Date Author No 10/24/2023 9:27 AM EDWendi Crowell Alden CHELSI Campbell documented in this encounter Discharge Instructions * Discharge Instructions* Concepción James RN - 11/04/2024 12:44 PM EDT Images from the original note were not included. +++++++++++++++++++++++++++++++++++++++++++++++++++++++++++++++++++ [facility] Discharge Instructions - Following Anesthesia We appreciate the opportunity to care for you today! Here are a few reminders as you head home: A responsible adult, 18 years or older must be in attendance until tomorrow morning. Rest quietly today. May resume usual diet as tolerated or as directed by your surgeon. Do not drive or operate any machinery until tomorrow morning or as instructed. Do not make any legal or important decisions for the next 24 hours. Do not drink alcoholic beverages or take sleeping pills for 24 hours unless otherwise directed. If you received a nerve block for post-operative pain control, protect your blocked arm/leg. It maybe numb. Carefully pad your limb to prevent pressure sores and other injuries. Be careful with applying cold/warm to the blocked limb. Numbness will alter the sensation of the limb and could damage your skin if you cannot correctly feel the temperature. If you have questions or concerns regarding your anesthesia experience, please call our office at . Get Well Soon! [facility] +++++++++++++++++++++++++++++++++++++++++++++++++++++++++++++++++++ [facility] Discharge Instructions - Following Endoscopy A responsible adult, 18 years or older must be in attendance until the next A.M. Rest quietly today. May resume usual diet. Do not drive or operate any machinery until the next A.M., or as instructed. No alcoholic beverages for 24 hours. Do not make any legal or important decisions for the next 24 hours. Call the physician???s office for a follow-up visit or any follow up questions. Patient discharged to the care of Bartolo britneyrae ADDITIONAL INSTRUCTIONS: Call Dr. Morgan at [phone] if the following occurs: Colonoscopy: Severe abdominal pains and swelling (mild abdominal cramps and gas pains can be expected), nausea and vomiting, rectal bleeding (with biopsy or polyps a small amount of blood can be expected), body temp. over 101 degrees, chills. Other Instructions: Medications Reviewed No Changes Copy of Discharge Medication Instruction Sheet Given Rx: documented in this encounter Medications at Time of Discharge albuterol (PROVENTIL HFA;VENTOLIN HFA) 90 mcg/actuation Inhl HFA Aerosol InhalerIndications: Acute bronchitis, unspecified organism Inhale 2 Puffs into the lungs every 4 hours as needed for Wheezing. 1 Each 2 3 allopurinoL (ZYLOPRIM) 300 mg Oral TabletIndications:E levated uric acid in blood TAKE ONE TABLET BY MOUTH ONCE A DAY 100 Tablet 2 5 ascorbic acid, vitamin C, (VITAMIN C) 500 mg Oral Tablet Take 2 Tablets by mouth daily. 60 Tablet 4 b kxhicdq-I-elxky acid (NEPHROCAP) 1 mg Oral Capsule Take 1 Capsule by mouth daily. Cholecalciferol, Vitamin D3, 125 mcg (5,000 unit) Oral Capsule Take 5,000 Units by mouth daily. 30 Capsule 4 cyanocobalamin 1,000 mcg Oral Tablet Take 1 Tablet by mouth daily. 30 Tablet 4 ergocalciferol (DRISDOL) 1,250 mcg (50,000 unit) Oral Capsule TAKE 1 CAPSULE BY MOUTH ONE TIME PER WEEK 4 Capsule 5 5 fish oil OTC (OMEGA-3 DHA-EPA 300 MG) 300-1,000 mg Oral Capsule, Delayed Release(E.C.) Take 2 g by mouth daily. flecainide (TAMBOCOR) 50 mg Oral Tablet TAKE ONE TABLET BY MOUTH 2 TIMES A DAY 60 Tablet 5 5 hydroCHLOROthiazide 25 mg Oral TabletIndications:P eripheral edema TAKE 1 TABLET BY MOUTH EVERY DAY 30 Tablet 4 5 loratadine (CLARITIN) 10 mg Oral Tablet TAKE ONE TABLET BY MOUTH ONCE A DAY 30 Tablet 4 minoxidiL (LONITEN) 2.5 mg Oral TabletIndications:H air loss TAKE ONE TABLET BY MOUTH ONCE A DAY 30 Tablet 5 5 omeprazole (PRILOSEC) 20 mg Oral Capsule, Delayed Release(E.C.) TAKE 1 CAPSULE BY MOUTH ONCE A DAY 30 Capsule 5 5 oxyCODONE-acetamino phen (PERCOCET) 10-325 mg Oral Tablet Take 1 Tablet by mouth every [address]. [address] Zelaya semaglutide (OZEMPIC) 2 mg/dose (8 mg/3 mL) SubQ Pen InjectorIndications :Type 2 diabetes mellitus with hyperlipidemia (HCC) Subcutaneous (Inject under the skin) 2 mg once a week. 3 mL 11 4 topiramate (TOPAMAX) 50 mg Oral Tablet TAKE 1 TABLET BY MOUTH TWICE DAILY 60 Tablet 2 5 Zinc Acetate, Oral, 50 mg (zinc) Oral Capsule Take 50 mg by mouth daily. 30 Capsule 4 metoprolol (LOPRESSOR) 50 mg Oral Tablet TAKE ONE TABLET BY MOUTH 2 TIMES A DAY 180 Tablet 5 4 12/02/19 25 traZODone (DESYREL) 50 mg Oral TabletIndications:I nsomnia, persistent TAKE ONE TABLET BY MOUTH EVERY NIGHT 30 Tablet 5 5 12/02/19 25 documented as of this encounter Discharge Disposition Disposition Code Departure Means Destination Home or Self Care documented in this encounter H&P Notes * Nitin Morgan MD - 11/04/2024 1:00 PM EDT [facility] Gastroenterology Outpatient Pre-Procedural History and Physical Primary Care Physician: Juana Bailey APRN Pre-Procedural Diagnosis: screening for colon cancer Indication(s) For Procedure: same Procedure Planned: Colonoscopy --screening HISTORY OF PRESENT ILLNESS: Jane Madden is a 54 y.o. female who has a past medical history of A-fib (HCC), Hypertension, Irregular heart beat, Migraines, Normocytic anemia (10/23/2022), and Sleep apnea. who presents forthe above procedure. Patient is not on anticoagulation. Past 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: Diagnosis Date A-fib (HCC) Hypertension Irregular heart beat Migraines Normocytic anemia 10/23/2022 Sleep apnea Past Surgical History: Procedure Laterality Date BACK SURGERY 10/2015 T9-T10 spinal fx requiring olga. BREAST REDUCTION SURGERY SECTION 1987 CHOLECYSTECTOMY TOTAL KNEE ARTHROPLASTY Bilateral TUBAL LIGATION Medications: Current Outpatient Medications on File Prior to Encounter Medication Sig Dispense Refill albuterol (PROVENTIL HFA;VENTOLIN HFA) 90 mcg/actuation Inhl HFA Aerosol Inhaler Inhale 2 Puffs into the lungs every 4 hours as needed for Wheezing. 1 Each 2 allopurinoL (ZYLOPRIM) 300 mg Oral Tablet TAKE ONE TABLET BY MOUTH ONCE A DAY 100 Tablet 2 ascorbic acid, vitamin C, (VITAMIN C) 500 mg Oral Tablet Take 2 Tablets by mouth daily. 60 Tablet 0 aspirin-dipyridamole (AGGRENOX) 25-200 mg Oral Cap, Multiphasic Release 12 hr Take 1 Capsule by mouth 2 times daily. Once daily b kugityj-J-zbxgf acid (NEPHROCAP) 1 mg Oral Capsule Take 1 Capsule by mouth daily. Cholecalciferol, Vitamin D3, 125 mcg (5,000 unit) Oral Capsule Take 5,000 Units by mouth daily. 30 Capsule 0 conjugated estrogens (PREMARIN) Vagl Cream Place 0.5 g vaginally every other day. 30 g 3 cyanocobalamin 1,000 mcg Oral Tablet Take 1 Tablet by mouth daily. 30 Tablet 0 dapagliflozin propanediol (FARXIGA) 10 mg Oral Tablet TAKE ONE TABLET BY MOUTH ONCE A DAY 100 Tablet 1 ergocalciferol (DRISDOL) 1,250 mcg (50,000 unit) Oral Capsule TAKE 1 CAPSULE BY MOUTH ONE TIME PER WEEK 4 Capsule 5 fish oil OTC (OMEGA-3 DHA-EPA 300 MG) 300-1,000 mg Oral Capsule, Delayed Release(E.C.) Take 2 g by mouth daily. flecainide (TAMBOCOR) 50 mg Oral Tablet TAKE ONE TABLET BY MOUTH 2 TIMES A DAY 60 Tablet 5 hydroCHLOROthiazide 25 mg Oral Tablet TAKE 1 TABLET BY MOUTH EVERY DAY 30 Tablet 4 loratadine (CLARITIN) 10 mg Oral Tablet TAKE ONE TABLET BY MOUTH ONCE A DAY 30 Tablet 0 metoprolol (LOPRESSOR) 50 mg Oral Tablet TAKE ONE TABLET BY MOUTH 2 TIMES A DAY 180 Tablet 5 minoxidiL (LONITEN) 2.5 mg Oral Tablet TAKE ONE TABLET BY MOUTH ONCE A DAY 30 Tablet 5 omeprazole (PRILOSEC) 20 mg Oral Capsule, Delayed Release(E.C.) TAKE 1 CAPSULE BY MOUTH ONCE A DAY 30 Capsule 5 oxyCODONE-acetaminophen (PERCOCET) 10-325 mg Oral Tablet Take 1 Tablet by mouth every [address]. [address] Zelaya traZODone (DESYREL) 50 mg Oral Tablet TAKE ONE TABLET BY MOUTH EVERY NIGHT 30 Tablet 5 Zinc Acetate, Oral, 50 mg (zinc) Oral Capsule Take 50 mg by mouth daily. 30 Capsule 0 ezetimibe (ZETIA) 10 mg Oral Tablet TAKE ONE TABLET BY MOUTH ONCE A DAY (Patient not taking: Reported on 11/04/2024) 30 Tablet 2 semaglutide (OZEMPIC) 2 mg/dose (8 mg/3 mL) SubQ Pen Injector Subcutaneous (Inject under the skin) 2 mg once a week. 3 mL 11 topiramate (TOPAMAX) 50 mg Oral Tablet TAKE 1 TABLET BY MOUTH TWICE DAILY 60 Tablet 2 No current facility-administered medications on file prior to encounter. Allergies: Allergies Allergen Reactions Tylenol-Codeine #3 [Acetaminophen-Codeine] Hives Family History Problem Relation Age of Onset Lung Cancer Mother Heart Disease Father Congenital Disease Brother Diabetes Brother Uterine Cancer Daughter No Known Problems Daughter No Known Problems Son Social History Socioeconomic History Marital status: Spouse name: Not on file Number of children: Not on file Years of education: Not on file Highest education level: Not on file Occupational History Not on file Tobacco Use Smoking status: Never Smokeless tobacco: Current Types: Snuff Substance and Sexual Activity Alcohol use: Not Currently Drug use: Never Sexual activity: Yes Partners: Male Other Topics Concern Not on file Social History Narrative Not on file Social Drivers of Health Financial Resource Strain: Low Risk (03/05/2023) Overall Financial Resource Strain (CARDIA) Difficulty of Paying Living Expenses: Not very hard Food Insecurity: No Food Insecurity (05/03/2023) Received from [facility] ([place], [place], [place], [place]) Food Insecurity Food run out past 12 months: Not on file Food did not last past 12 months: Not on file Transportation Needs: No Transportation Needs (03/05/2023) PRAPARE - Transportation Lack of Transportation (Medical): No Lack of Transportation (Non-Medical): No Physical Activity: Inactive (03/05/2023) Exercise Vital Sign Days of Exercise per Week: 0 days Minutes of Exercise per Session: 0 min Stress: No Stress Concern Present (03/05/2023) [facility] [place] [facility] - Occupational Stress Questionnaire Feeling of Stress : Only a little Social Connections: Low Risk (05/03/2023) Received from [facility] ([place], [place], [place], [place]) Family and Community Support Help with Day to Day Activities: Not on file Feeling Lonely or Isolated: Not on file Intimate Partner Violence: Unknown (01/22/2023) Received from [facility] Abuse Screen Unsafe at Home or Work/School: Not on file Feels Threatened by Someone?: Not on file Does Anyone Keep You from Contacting Others or Doint Things Outside the Home?: Not on file Physical Sign of Abuse Present: Not on file Housing Stability: Low Risk (05/03/2023) Received from [facility] ([place], [place], [place], [place]) Housing Stability Living situation today: Not on file Living situation problems: Not on file PHYSICAL EXAM: Vitals: BP 105/76 (BP Location: Right arm, Patient Position: Semi Fowlers) Pulse 84 Temp 97.9 ??F (36.6??C) (Forehead) Resp 18 Ht 5' 5 (1.651 m) Wt 211 lb (95.7 kg) SpO2 96% BMI 35.11 kg/m?? CONSTITUTIONAL: No apparent distress, appears stated age HEENT: Atraumatic/normocephalic, extra-ocular muscles intact, no scleral icterus, b/l ears without defect, adequate hearing, b/l nares patent, moist mucus membranes, full range of motion of neck CARDIOVASCULAR: Regular rate and rhythm, no murmurs/rugs/gallops, normal S1 and S2 ausculated RESPIRATORY: No increased work of breathing, clear to auscultation bilaterally, no wheezes/rales/ronchi GI: soft, non-distended, non-tender to palpation, +bowel sounds, no rebound/guarding, MUSCULOSKELETAL: No redness, warmth, or swelling of the joints. Range of motion normal. NEUROLOGIC: Awake, alert, cooperative, CN II-XII grossly intact, no seizures/tremors noted, no asterixis elicited PSYCHIATRIC: Normal affect, pleasant mood DATA: Lab Results Component Value Date WBC 9.4 10/24/2023 HGB 12.6 10/24/2023 HCT 39.0 10/24/2023 PLT 204 10/24/2023 CHOLESTEROL 173 05/07/2024 TRIG 129 05/07/2024 HDL 49 05/07/2024 LDLCALC 101 (H) 05/07/2024 ALT 17 05/07/2024 AST 20 05/07/2024 NA 141 05/07/2024 K 4.1 05/07/2024 CL 101 05/07/2024 CALCIUM 9.9 05/07/2024 BUN 22 (H) 05/07/2024 CREATININE 0.75 05/07/2024 GFRCKDEPI 94 05/07/2024 CO2 29 05/07/2024 GLU 99 05/07/2024 HGBA1C 6.2 (H) 05/07/2024 MICROALBUR 80 10/23/2022 TSHREFLEX 4.180 10/24/2023 WQVP70DO 49.8 10/24/2023 No results found for: INR , PROTIME Last Oral Intake: Yesterday Previous Anesthesia Reaction: no Pre-Procedure Assessment: Risks, benefits, potential complications (including but not limited to missed lesions, sedation, bleeding, perforation and or ) and alternatives were discussed with the patient or patient's legally authorized contact representative. The patient's pre-procedural physical assessment indicates that the patient is suitable for and agrees to the planned sedation and procedure. Cardiovascular and Vital signs Stable: yes Adequate/Patient Oral Airway yes ASA: 2 ASSESSMENT / PLAN: Jane Madden is a 54 y.o. female who presents for the above specified procedure. I attest that the patient/patient contact representative has been counseled as to the potential benefits, risks, and side effects to the planned surgical treatment, including the likelihood of success and potential problems that might occur during recuperation. The patient/patient contact representative has also been counseled as to the alternatives to this intervention, including possible results of not having this intervention performed and benefits and risks of these alternatives. The patient/patient contact representative has given their consent to proceed with this intervention after having their questions sufficiently answered. Nitin Morgan MD [facility] Gastroenterology documented in this encounter Nursing Notes * Nikole Fernandez, RN - 11/04/2024 1:00 PM EDT Images from the original note were not included. PREPARING FOR YOUR PROCEDURE Date of Surgery 11.04.24 Arrival time 1200 Medications Take the following pills with a small sip of water on the morning of procedure: metoprolol Aspirin, Coumadin, blood thinners, ibuprofen, Plavix, fish oil, vitamin E, any supplements, and anyanti-inflammatory products may be stopped as directed by your physician. Food, Drinks, Tobacco For your safety, do not eat any food after midnight. This includes gum, mints, candy, chewing tobacco, and dip. If having a procedure which includes a prep, please follow office instructions. No exceptions or substitutions may be made to these restrictions. For tobacco users: do not smoke or use any type of tobacco products within 24 hours prior to procedure. No beer, wine or alcohol 24 hours prior to procedure. Video Producer On the day of procedure, it is important to have a Video Producer, someone who is 18 years or older, to accompany you and remain in or near the facility for the duration of your procedure. This person should be available for the Endoscopy Team to communicate with before, during and after your procedure. Someone should also remain with you for 24 [address] procedure to [address] you and make sure you are SAFE during that time. A parent must accompany a child under 18 years of age scheduled for the procedure and [facility] is [facility]. Please do not bring children with you to the hospital. Hygiene You may brush your teeth and gargle the morning of procedure. Do not swallow water. Personal Items Please wear simple, loose fitting clothing to the hospital. Do not bring valuables (money, credit cards, check books, etc.) or wear any jewelry on day of procedure. Remove all body piercings prior toarrival. All jewelry must be removed to avoid injury. We will not tape wedding rings/bands. If you have dentures, they may be removed before going into the procedure room, and we will providea container for them. If you wear contact lenses or glasses, they must be removed. Please bring a case for them. Do not remove hearing aids. You will wear them to procedure. Bring with You If you have a Living Will and Durable Power of Quality Assurance Supervisor Chassis for Healthcare, please bring a copy. If having procedure at the hospital and you wear CPAP or BIPAP, please bring your mask and the machine settings (not the actual machine) with you to the hospital on the day of your procedure. The hospital will supply a machine to use during your hospital stay. If you wear oxygen, please bring it with you to use during your travel to and from the hospital. Ifyou are admitted, the hospital will supply oxygen for your use. Please bring a photo ID and Insurance card with you the day of procedure. Notify the Doctor For your safety, notify your doctor if you develop any illness between now and procedure time -- cough, cold, fever, sore throat, nausea, vomiting, etc. Please call your doctor???s office if you are unable to complete or tolerate prep prior to arrival time. Questions or Concerns? If you have any questions or concerns, feel free to call the contact number. We want to make sure you feel safe and have an excellent experience while you are here. Endoscopy [facility] at [phone] Physician Specialty Services Entrance 3A, check in at front desk agent, [address] [place] [address], [place] [phone] documented in this encounter Plan of Treatment Upcoming Encounters Date Type Department Care Team (Late st Contact Info) Description 12/11/2024 10:00 AM EDT Clinical Support [facility] [address] [place], [place] [phone] documented as of this encounter Goals Goal Patient Goal Type Associated Problems Recent Progress Patient-Stated? Author Blood Pressure < 140/90 Blood Pressure 110/78(2024 10:09 AM EDT) No Lynn, Juana, MUSIC PASTOR Maintain a healthy diet, exercise regularly and maintain an ideal body weight General No Noelle Yeh RMA BMI (Calculated) < 30 General 33.9(11/21/19 10:09 AM EDT) No Mahaffey, Juana, MUSIC PASTOR Stay Tobacco Free Lifestyle No Lynn, Juana, MUSIC PASTOR HEMOGLOBIN A1C < 7.0 Result Component 5.9( 10:54 AM EDT) No Lynn, Juana, MUSIC PASTOR documented as of this encounter Procedures Procedure Name Priority Date/Time Associated Diagnosis Comments COLONOSCOPY Routine 11/04/2024 2:28 PM EDT Screening for colon cancer GLUCOSE METER POC Routine 11/04/2024 1:0 4 PM EDT documented in this encounter Results * COLONOSCOPY (11/04/2024 2:28 PM EDT) Anatomical Region Laterality Modality Endoscopy Narrative 11/04/2024 2:27 PM EDT Table formatting from the original result was not included. Findings Moderate diverticulosis with multiple medium, scattered diverticula with no inflammation containing no content in the descending colon and sigmoid colon Recommendation Repeat screening colonoscopy in 10 years, due: 11/02/2034 Pre-Procedure Diagnosis / Indication Screening for colon cancer Post-Procedure Diagnosis None Staff Staff Role Nitin Morgan MD Performing Provider IRVIN Lamar CRNA, RN Human Resources Analyst Bárbara Leyva RN Endoscopy Nurse Medications See Anesthesia Record. Preprocedure A history and physical has been performed, and patient medication allergies have been reviewed. The patient's tolerance of previous anesthesia has been reviewed. The risks and benefits of the procedure and the sedation options and risks were discussed with the patient. All questions were answered and informed consent obtained. ASA 3 - Patient with severe systemic disease Details of the Procedure The patient underwent monitored anesthesia care, which was administered by an anesthesia professional. The patient's blood pressure, heart rate, level of consciousness, oxygen saturation, respirations, ECG and ETCO2 were monitored throughout the procedure. A digital rectal exam was performed. The scope was introduced through the anus and advanced to the cecum. Retroflexion was performed in the rectum. Bowel prep was adequate. The patient experienced no blood loss. The procedure was not difficult. The patient tolerated the procedure well. There were no apparent adverse events. Patient provided education and educated on specific discharge instructions. Patient educated on medications given during the procedure and new medications for discharge. Patient verbalizes understanding of discharge education. Patient stable and awaiting transport for discharge. Events Procedure Events Event Event Time ENDO SCOPE IN TIME 11/04/2024 2:11 PM ENDO CECUM REACHED 11/04/2024 2:15 PM Specimens No specimens collected Anesthesia Event Time In Patient In - Proc. Room 02:07 PM Nitin Morgan MD ENDOSCOPY PROCEDURE ORDERABL ES Final Result * GLUCOSE METER POC (11/04/2024 1:04 PM EDT) Glucose Meter POC 73 70 - 100 mg/dL 11/04/2024 1:05 PM EDT [facility] Sample Type Capillary 11/04/2024 1:05 PM EDT [facility] Patient Status Non-Critical Patient 11/04/2024 1:05 PM EDT [facility] Blood BLOOD SPECIMEN / Unknown 11/04/2024 1:04 PM EDT 11/04/2024 1:05 PM EDT Nitin Morgan MD POINT OF CARE TEST ORDERABLE S Final Result [facility] [address] [place] [address] documented in this encounter Visit Diagnoses Diagnosis Screening for colon cancer Special screening for malignant neoplasms, colon documented in this encounter Administered Medications Inactive Administered Medications - up to 1 most recent administrations Medication Order MAR Action Action Date Dose Rate Site lactated ringers infusion Intravenous, at 50 mL/hr, PREPROCEDURE CONTINUOUS, Starting on Sat11/03/24 at 0832, Until Sat11/04/24 at 203, To be given in SDS/Pre-op Holding Area, Pre-op (Holding/SDS Meds) New Bag 11/04/2024 1:06 PM EDT 50 mL/hr documented in this encounter Orders Medications Ordered That Niels ht Not Have Been Administered Count Last Ordered Date First Ordered Date ondansetron (ZOFRAN) injection 4 mg 1 11/04 ondansetron (ZOFRAN-ODT) dis integrating tablet 8 mg 1 11/04/2024 insulin aspart U-100 (NovoLO G) injection 1-10 Units 1 11/03/2024 Discharge Count Last Ordered Date First Orde red Date DISCHARGE PATIENT 1 11/04/2024 documented in this encounter Care Teams Senior Firewall Engineer Relationship Specialty Start Date End Date Juana Bailey APRN [address] [place], [place] [address] PCP - General Nurse Practitioner-Family 08/29/22 documented as of this encounter
--- OUTSIDE RECORDS SUMMARY | 2024-11-04 14:07 | XMS_ITS | Encounter Summary ---
Author Organization [place] [address] Care Team Providers Care Sign Writer Letterer Or Painter Name Role Phone LynnJuana talbot ZAHRA Primary Care Provider Encounter Details Date Type Department Care Team (Late st Contact Info) Description 11/04/2024 2:07 PM EDT Anesthesia Event [facility] ENDOSCOPY [address] [facility]. [place] [id number] Zeb Tamayo GLASS BLOWING LATHE OPERATOR [address] [place], [place] [id number] Srinivas Liao APRN [address] [place] [address] Anesthesia Record Procedure Summary Procedure Name Responsible Anesthesiologist Anesthesia Start Time Anesthesia Stop Time COLONOSCOPY Zeb Tamayo GLASS BLOWING LATHE OPERATOR 11/04/24 1407 10/14 07/07 1428 Events Date Time Event Comment 11/04/2024 1245 1405 AN Equip Check 1407 An Start 1407 An Start Data 1407 Start Supplemental O2 Disabl es direct capture of O2 [ANES AGENT O2 [[id number]] and Air flow [ANES AGENT AIR [[id number]] variables into chart. 1407 Immediate Pre Anesthetic Ass es 1411 Anesthesia Ready 1412 Time out 1412 Incision 1428 an stop data 1428 An Stop 1428 Handoff I completed my SBAR handoff to the receiving nurse which has included the followin. Identification of the patient, family, or patient surrogate 2. Identification of the responsible practitioner 3. Pertinent medical history 4. Surgical procedure and reason for procedure 5. Intraoperative anesthetic management 6. All current lines, drains and respiratory support. 7. Outstanding follow up orders (X-rays, consults etc) 8. Expectations/Plans for the early post-procedure period 9. Opportunity for questions and acknowledgement of understanding from the receiving PACU/ICU merchandise flow team member Meds Name Total propofol (DIPRIVAN) injection 200 mg lidocaine injection 1% 50 mg lactated ringers infusion 0 mL * Agents Name O2 N2O Air * Blood No blood administrations on file. Lines, Drains, and Airways Type Details Placement Removal Peripheral IV 11/04/24; 1302; 22; Posterior, Right; Hand; Ruth RN; 1; 11/04/24; 1446; Therapy completed; Catheter intact, Dressing applied, No Complications 11/04/24 1302 by Ruth Angiuano RN 11/04/24 1446 by Concepción James RN Airway Device: Nasal Cannul a Salter; Placement Date: 11/04/24; Placement Time: 141 (created via procedure documentation); Removal Date: 11/04/24; Removal Time: 1433 11/04/24 1412 by Zeb Tamayo GLASS BLOWING LATHE OPERATOR 11/04/24 1433 by Discharge Provider, Automatic documented in this encounter Social History Tobacco Use Types Packs/Day Years Used Date Smoking Tobacco: Never Smokeless Tobacco: Current Snuff Alcohol Use Standard Drinks/Week Comments Not Currently 0 (1 standard drink = 0.6 oz pur e alcohol) Overall Financial Resource Strain ([facility]) Answe r Date Recorded How hard is it for you to pa y for the very basics like food, housing, medical care, and heating? Not very hard 03/05/2023 PHQ-2 Answer Date Recorded PHQ-2 Total Score 0 10/24/2023 [facility] of Occupat ional Health - Occupational Stress [...] on file Legal Sex Female 11:17 AM EDDIET Gender Identity Not on file Sexual Orientation [...] Alden Crowell CCMA documented in this encounter Procedure Notes * Zeb Tamayo CRNA - 11/04/2024 2:12 PM EDTAssociated Order(s): Airway Intraop Airway Placement: Date/Time: 11/04/2024 2:12 PM Airway type: Nasal cannula salter documented in this encounter OR Notes * Anesthesia Postprocedure Evaluation - Zeb Tamayo CRNA - 11/04/2024 2:33 PM EDT Post-Anesthesia Evaluation Note Patient Name: Jane Madden Patient Date: November 04, 2024 Post-Anesthesia Evaluation Patient Location: ENDO Post op vitals: stable Difficult airway: no Nausea controlled: yes Level of consciousness: awake Post anesthesia pain: adequate analgesia Long acting local anesthetic: n/a Airway patency: patent Respiratory status: room air Cardiovascular status: stable Hydration status: euvolemic Temperature: Normothermia Perioperative complications: NONE Vitals Value Taken Time BP 97/62 11/04/24 14:30 Resp 16 11/04/24 14:30 SpO2 97 % 11/04/24 14:30 Temp 36.3 ??C (97.3 ??F) 11/04/24 14:30 Pulse 78 11/04/24 14:30 * Anesthesia Preprocedure Evaluation - Zeb Tamayo CRNA - 11/04/2024 12:44 PM EDT Pre-Anesthesia Evaluation Note Patient Name: Jane Madden Sex: female Patient : 1970 Age: 54 y.o. Patient Date: November 04, 2024 COLONOSCOPY Anesthesia Evaluation Previous anesthesia. Airway Mallampati: II TM distance: >3 FB Neck ROM: full Possible difficult airway Dental - normal exam Pulmonary (+) Sleep apnea Physical exam: Comments: Clear to auscultation Cardiovascular (+)Hypertension: well controlled Hyperlipidemia Arrhythmias: atrial fibrillation Physical exam: Rate: normal Neuro/Psych (+) Headaches: migraine Psychiatric history: Back or neck pain: Spine instrumentation GI/Hepatic/Renal (+)GERD/PUD: Chronic kidney disease: III Endo/Other (+)GLP-1 / Weight loss med: Weekly dosing Obese: Diabetes mellitus (05/07/24 a1c 6.2): type 2 and well controlled Arthritis: Osteoarthritis Anemia UPPER TRIMMER (+) Non childbearing due to: Tubal ligation Additional Pre-evaluation comments cmp 05/07/24 reviewed Opioids History of Opioid use Opioid Tolerant : Chr Rx BMI Anesthesia Plan ASA 3 Last solid intake: The patient has not eaten within the last 8 hours. Last clear liquid intake: The patient has not had clear liquids within the last 2 hours. Anesthesia Plan: MAC Monitors: STD Informed consent Anesthetic plan and risks discussed with: patient. Chart Reviewed and patient examined documented in this encounter Miscellaneous Notes * PAT Pre Evaluation for Anesthesia - Srinivas Liao APRN - 11/02/2024 1:18 PM EDT Pre-Anesthesia Evaluation Note Patient Name: Jane Madden Sex: female Patient : 1970 Age: 54 y.o. Patient Date: November 02, 2024 COLONOSCOPY Anesthesia Evaluation Previous anesthesia. Airway Dental Pulmonary (+) Sleep apnea Cardiovascular (+)Hypertension: well controlled Hyperlipidemia Arrhythmias: atrial fibrillation Neuro/Psych (+) Headaches: migraine Psychiatric history: Back or neck pain: Spine instrumentation GI/Hepatic/Renal (+)GERD/PUD: Chronic kidney disease: III Endo/Other (+)GLP-1 / Weight loss med: Weekly dosing Obese: Diabetes mellitus (05/07/24 a1c 6.2): type 2 and well controlled Arthritis: Osteoarthritis Anemia UPPER TRIMMER (+) Non childbearing due to: Tubal ligation Additional Pre-evaluation comments cmp 05/07/24 reviewed Opioids History of Opioid use Opioid Tolerant : Chr Rx BMI Anesthesia Plan Anesthesia Plan: MAC Chart Reviewed documented in this encounter Plan of Treatment Upcoming Encounters Date Type Department Care Team (Late st Contact Info) Description 12/11/2024 10:00 AM EDT Clinical Support [facility] [place] [facility] [address] [place] [address] documented as of this encounter Goals Goal Patient Goal Type Associated Problems Recent Progress Patient-Stated? Author Blood Pressure < 140/90 Blood Pressure 110/78(2024 10:09 AM EDT) No Juana Bailey APRN Maintain a healthy diet, exercise regularly and maintain an ideal body weight General No Noelle Yeh RMA BMI (Calculated) < 30 General 33.9(11/21/19 10:09 AM EDT) No Juana Bailey APRN Stay Tobacco Free Lifestyle No Juana Bailey APRN HEMOGLOBIN A1C < 7.0 Result Component 5.9( 10:54 AM EDT) No Juana Bailey APRN documented as of this encounter Procedures Procedure Name Priority Date/Time Associated Diagnosis Comments INTRAOP AIRWAY PLACEMENT Routine 11/04/2024 2:12 PM EDT documented in this encounter Results * INTRAOP AIRWAY PLACEMENT (11/04/2024 2:12 PM EDT) Narrative [facility] - 11/04/2024 2:12 PM EDT Zeb Tamayo CRNA 11/04/2024 2:12 PM Intraop Airway Placement: Date/Time: 11/04/2024 2:12 PM Airway type: Nasal cannula salter us Zeb Tamayo CRNA [place] ANESTHESIA Final Resul t [facility] [address] [place] [address] documented in this encounter Visit Diagnoses Not on filedocumented in this encounter Administered Medications Inactive Administered Medications - up to 1 most recent administrations Medication Order MAR Action Action Date Dose Rate Site lidocaine 1% 10 mg/mL (1 %) injection Intravenous, PRN (Anesthesia), Starting on Sat11/04/24 at 1409, Until Sat11/04/24 at 1428, Anesthesia Intra-op Given 11/04/2024 2:09 PM EDT 50 mg propofoL (DIPRIVAN) injection Intravenous, PRN (Anesthesia), Starting on Sat11/04/24 at 1409, Until Sat11/04/24 at 1428, Anesthesia Intra-op Given 11/04/2024 2:12 PM EDT 50 mg documented in this encounter Care Teams Sign Writer Letterer Or Painter Relationship Specialty Start Date End Date Juana Bailey APRN [address] [place], [place] [address] PCP - General Nurse Practitioner-Family 08/29/22 documented as of this encounter
--- OUTSIDE RECORDS SUMMARY | 2024-11-11 10:15 | XMS_ITS | Encounter Summary ---
Author Organization [place] [address] Care Team Providers Care Hair Assistant Name Role Phone Juana Bailey APRN Primary Care Provider Reason for Visit * Reason Comments Cough Congestion Fatigue Encounter Details Date Type Department Care Team (Latest Contact Info) Description 11/11/2024 10:15 AM EDT Office Visit [facility] [place] [address] [place] [phone] Juana Bailey APRN [address] [place] [address] Rhinosinusitis (Primary Dx) Social History Tobacco Use Types [...] Date Recorded PHQ-2 Total Score 0 10/24/2023 [facility] [place] [employer] of Occupat ional Health - Occupational Stress [...] Sign Reading Time Taken Comments Blood Pressure 110/70 11/11/2024 10:07 AM EDT Pulse 90 11/11/2024 10:07 AM EDT Temperature 36.4 C (97.6 F) 11/11/2024 10:07 AM EDT Respiratory Rate 18 11/11/2024 10:07 AM EDT Oxygen Saturation 98% 11/11/2024 10:07 AM EDT Inhaled Oxygen Concentration - - Weight 94.3 kg (208 lb) 11/11/2024 10:07 AM EDT Height - - Body Mass Index 34.61 11/04/2024 12:38 PM EDT documented in this [...] Refills Last Filled Start Date End Date azithromycin (ZITHROMAX) 250 mg Oral TabletIndications: Rhinosinusitis Take 2 tablets (500 mg) on Day 1, followed by 1 tablet (250 mg) once daily on Days 2 through 5. 6 Tablet 11/11/2024 5 documented in this encounter Progress Notes * Juana Bailey APRN - 11/11/2024 10:15 AM EDT Assessment & Plan Rhinosinusitis As above. No distress. Vitals stable. Lungs clear. Medications as prescribed. Encouraged use of OTCmedications such as decongestants and antipyretics for symptom relief. Cool mist humidifier at night. Encouraged hydration, fever/pain control with followup for persistent or worsening sx. Orders: methylPREDNISolone acetate (DEPO-Medrol) injection 80 mg betamethasone acet-betamethasone sodium phos (CELESTONE) injection 6 mg azithromycin (ZITHROMAX) 250 mg Oral Tablet; Take 2 tablets (500 mg) on Day 1, followed by 1 tablet(250 mg) once daily on Days 2 through 5. Progress Note: Vitals: 11/11/24 1007 BP: 110/70 Pulse: 90 Resp: 18 Temp: 97.6 ??F (36.4 ??C) TempSrc: Forehead SpO2: 98% Weight: 208 lb (94.3 kg) Body mass index is 34.61 kg/m??. SUBJECTIVE: Chief Complaint Patient presents with Cough Congestion Fatigue HPI: 2-3 day hx of sinus pain, pressure, congestion, drainage, sore throat, slight cough. No sob or wheezing. No sig cough. No associated GI or sx. Hasn't taken any medications for symptoms. Using cough drops for sore throat. Review of Systems Constitutional: Positive for fatigue. Negative for fever. HENT: Positive for congestion, postnasal drip, sinus pressure, sinus pain and sore throat. Respiratory: Negative for cough, shortness of breath and wheezing. Cardiovascular: Negative for chest pain, palpitations and leg swelling. Gastrointestinal: Negative for abdominal pain. Musculoskeletal: Positive for arthralgias and back pain. Hematological: Negative for adenopathy. OBJECTIVE: Physical Exam Constitutional: Appearance: She is obese. HENT: Head: Normocephalic and atraumatic. Right Ear: A middle ear effusion is present. Left Ear: A middle ear effusion is present. Nose: Mucosal edema and congestion present. Mouth/Throat: Pharynx: Posterior oropharyngeal erythema present. Cardiovascular: Rate and Rhythm: Normal rate and [...] 10:00 AM EDT Clinical Support [facility] [place] [address] [place], [place] [phone] documented as of this encounter Goals Goal [...] as of this encounter Visit Diagnoses Diagnosis Rhinosinusitis- Primary Unspecified sinusitis (chronic) documented in this encounter Administered Medications Inactive Administered Medications - up to 1 most recent administrations Medication Order MAR Action Action Date Dose Rate Site betamethasone acet-betamethasone sodium phos (CELESTONE) injection 6 mg 6 mg, Intramuscular, ONCE, 1 dose, On Sat11/11/24 at 1030, Do not refrigerate, Dx: 1. RhinosinusitisIndication s:Rhinosinusitis Given 11/11/2024 10:30 AM EDT 6 mg Left upper gluteus methylPREDNISolone acetate (DEPO-Medrol) injection 80 mg 80 mg, Intramuscular, ONCE, 1 dose, On Sat11/11/24 at 1030, Dx: 1. RhinosinusitisIndication s:Rhinosinusitis Given 11/11/2024 10:30 AM EDT 80 mg Left upper gluteus documented in this encounter Care Teams Hair Assistant Relationship Specialty Start Date End Date Juana Bailey APRN [address] [place], [place] [address] PCP - General Nurse Practitioner-Family 08/29/22 documented as of this encounter
--- OUTSIDE RECORDS SUMMARY | 2024-11-20 10:15 | XMS_ITS | Encounter Summary ---
Author Organization [place] [address] Care Team Providers Care Watershed Engineer Name Role Phone Juana Bailey APRN Primary Care Provider [phone] Reason for Visit * Reason Comments Shoulder Pain right Encounter Details Date Type Department Care Team (Latest Contact Info) Description 11/20/2024 10:15 AM EDT Office Visit [facility] [place] [address] [place] [id number] Juana Bailey APRN [address] [place] [address] Annual physical exam (Primary Dx); Vitamin D deficiency; Type 2 diabetes mellitus with hyperlipidemia (HCC); Statin myopathy; Stage 3b chronic kidney disease (HCC); Paroxysmal atrial fibrillation (HCC); Elevated uric acid in blood; Dyslipidemia; Obesity, Class I, BMI 30-34.9; Screening for thyroid disorder; Chronic midline thoracic back pain; Dysuria Social History Tobacco Use Types Packs/Day Years [...] Answer Date Recorded PHQ-2 Total Score 0 11/20/2024 [employer] [facility] - Occupational Stress [...] Sign Reading Time Taken Comments Blood Pressure 110/78 11/20/2024 10:09 AM EDT Pulse 81 11/20/2024 10:09 AM EDT Temperature 36.3 C (97.4 F) 11/20/2024 10:09 AM EDT Respiratory Rate 18 11/20/2024 10:09 AM EDT Oxygen Saturation 99% 11/20/2024 10:09 AM EDT Inhaled Oxygen Concentration - - Weight 92.1 kg (203 lb) 11/20/2024 10:09 AM EDT Height 165.1 cm (5' 5 ) 11/20/2024 10:09 AM EDT Body Mass Index 33.78 11/20/2024 10:09 AM EDT documented in this encounter Functional Status * Cognitive and Functional Status Question Answer Date of Assessment Author Is the person deaf or does he/she have serious difficulty hearing? No 11/20/2024 10:18 AM Sarah Polanco CCMA Is the person blind or does he/she have serious difficulty seeing even when wearing glasses? No 11/20/2024 10:18 AM Sarah Polanco CCMA Does this person have seriou s difficulty walking or climbing stairs? No 11/20/2024 10:18 AM Sarah Polanco CCMA Does this person have difficulty dressing or bathing? No 11/20/2024 10:18 AM Sarah Polanco CCMA * Is the person deaf or does he/she have serious difficulty hearing? Answer Date of Assessment Author No 11/20/2024 10:18 AM Sarah Polanco CCMA * Is the person blind or does he/she have serious difficulty seeing even when wearing glasses? Answer Date of Assessment Author No 11/20/2024 10:18 AM Sarah Polanco CCMA * Does this person have serious difficulty walking or climbing stairs? Answer Date of Assessment Author No 11/20/2024 10:18 AM Sarah Polanco CCMA * Does this person have difficulty dressing or bathing? Answer Date of Assessment Author No 11/20/2024 10:18 AM Sarah Polanco CCMA * Because of a physical, mental or emotional condition, does this person have difficulty doing errands alone such as visiting a doctor's office or shopping? Answer Date of Assessment Author No 11/20/2024 10:18 AM Sarah Polanco CCMA * PHQ-9 Total Score Answer Date of Assessment Author 0 11/20/2024 10:18 AM Sarah Polanco CCMA * Question Answer Date of Assessment Author Little interest or pleasure in doing things 0 11/20/2024 10:18 AM Sarah Polanco CCMA Feeling down, depressed, or hopeless 0 11/20/2024 10:18 AM Sarah Polanco CCMA PHQ-2 Total Score 0 11/20/2024 10:18 AM Sarah Polanco CCMA * PHQ-2 Total Score Answer Date of Assessment Author 0 11/20/2024 10:18 AM Sarah Polanco CCMA * Question Answer Date of Assessment Author Feeling Nervous, Anxious, or on Edge 0 11/20/2024 10:18 AM Sarah Polanco CCMA Not Being Able to Stop or Control Worrying 0 11/20/2024 10:18 AM Sarah Polanco CCMA Worrying too Much About Different Things 0 11/20/2024 10:18 AM Sarah Polanco CCMA Trouble Relaxing 0 11/20/2024 10:18 AM Sarah Polanco CCMA Being so Restless That it is Hard to Sit Still 0 11/20/2024 10:18 AM Sarah Polanco CCMA Becoming Easily Annoyed or Irritable 0 11/20/2024 10:18 AM Sarah Polanco CCMA Feeling Afraid as if Something Awful Might Happen 0 11/20/2024 10:18 AM Sarah Polanco CCMA STEVE-7 Total Score 0 11/20/2024 10:18 AM Sarah Polanco CCMA documented as of this encounter Mental Status * Cognitive and Functional Status Question Answer Entry Date Author Because of a physical, menta l or emotional condition, does this person have difficulty doing errands alone such as visiting a doctor's office or shopping? No 11/20/2024 10:18 AM Sarah Polanco CCMA Because of a physical, menta l or emotional condition, does this person have serious difficulty concentrating, remembering or making decisions? No 11/20/2024 10:18 AM Sarah Polanco CCMA * Because of a physical, mental or emotional condition, does this person have serious difficulty concentrating, remembering or making decisions? Answer Entry Date Author No 11/20/2024 10:18 AM EDT Sarah Crowell CCMA documented in this encounter Ordered Prescriptions Prescription Sig Dispense Quantity Refills Last Filled Start Date End Date nitrofurantoin, macrocrystal-monoh ydrate, (MACROBID) 100 mg Oral CapsuleIndications :Dysuria Take 1 Capsule by mouth 2 times daily for 7 days. 14 Capsule 11/20/2024 documented in this encounter Progress Notes * Juana Bailey APRN - 11/20/2024 10:15 AM EDTAssociated Problem(s): Vitamin D deficiency On replacement Orders: VITAMIN D 25 HYDROXY; Future * Juana Bailey APRN - 11/20/2024 10:15 AM EDTAssociated Problem(s): Type 2 diabetes mellitus with hyperlipidemia (HCC) Goal A1C: < 6.5 and TIR >70% - Last A1c - 6.2 - 05/07/2024 - at goal - A1C ordered today Compliance: - compliant with diet and medications Home Glucose Monitoring: - none Retinopathy Screening: - patient has no know retinopathy and was reminded to complete a retinal exam every 2 years Nephropathy Assessment: - microalbumin ordered today Foot Assessment: - no ulcers or pre-ulcers Diet Advice: - discussed continuing a low carbohydrate diet Statin Therapy: - history of statin intolerance Medication Management: - a reassessment of the patients current diagnoses, medications, labs, potential SE, appropriate dose and risks assessed and discussed today Orders: HEMOGLOBIN A1C; Future MICROALBUMIN/CREATININE RATIO URINE; Future * Juana Bailey APRN - 11/20/2024 10:15 AM EDTAssociated Problem(s): Statin myopathy Orders: LIPID PANEL REFLEX; Future * Juana Bailey APRN - 11/20/2024 10:15 AM EDTAssociated Problem(s): Stage 3b chronic kidney disease (HCC) Preventing CKD Progression: 1.Tight control of BP, BS, Lipids, passive smoking etc 2.Avoid any NSAIDs 3.Avoid IV contrast (Oral contrast OK). 4.Careful selection of Abx, dose for current GFR. 5.DASH diet, along with limiting the protein intake. Recommended protein intake no more than 1 gm/kg/day. Na =2 gm per day. Limit Phosphorus and Purines in diet too. * Juana Bailey APRN - 11/20/2024 10:15 AM EDTAssociated Problem(s): Paroxysmal atrial fibrillation (HCC) Previously followed by cardiology. On rate control No indication for AC at this time Has lost 100lb * Juana Bailey APRN - 11/20/2024 10:15 AM EDTAssociated Problem(s): Elevated uric acid in blood On allopurinol Orders: URIC ACID; Future * Juana Bailey APRN - 11/20/2024 10:15 AM EDTAssociated Problem(s): Dyslipidemia Statin intolerance Orders: LIPID PANEL REFLEX; Future * Juana Bailey APRN - 11/20/2024 10:15 AM EDTAssociated Problem(s): Morbid obesity (HCC) 100lb weight loss over the past 18 mos with diet, exercise and GLP Doing well Continue same Orders: VITAMIN B12/ FOLIC ACID; Future * Juana Bailey APRN - 11/20/2024 10:15 AM EDTAssociated Problem(s): Chronic midline thoracic back pain Having acute on chronic mid to right thoracic pain. Sees pain mgmt at [facility] Will get outpt xray and have her keep followup apt with Dr. Zelaya to discuss Orders: XR THORACIC SPINE AP AND LATERAL; Future * Juana Bailey APRN - 11/20/2024 10:15 AM EDT Assessment & Plan Annual physical exam Orders: CBC WITH DIFF; Future COMPREHENSIVE METABOLIC PANEL; Future Vitamin D deficiency On replacement Orders: VITAMIN D 25 HYDROXY; Future Type 2 diabetes mellitus with hyperlipidemia (HCC) Goal A1C: < 6.5 and TIR >70% - Last A1c - 6.2 - 05/07/2024 - at goal - A1C ordered today Compliance: - compliant with diet and medications Home Glucose Monitoring: - none Retinopathy Screening: - patient has no know retinopathy and was reminded to complete a retinal exam every 2 years Nephropathy Assessment: - microalbumin ordered today Foot Assessment: - no ulcers or pre-ulcers Diet Advice: - discussed continuing a low carbohydrate diet Statin Therapy: - history of statin intolerance Medication Management: - a reassessment of the patients current diagnoses, medications, labs, potential SE, appropriate dose and risks assessed and discussed today Orders: HEMOGLOBIN A1C; Future MICROALBUMIN/CREATININE RATIO URINE; Future Statin myopathy Orders: LIPID PANEL REFLEX; Future Stage 3b chronic kidney disease (HCC) Preventing CKD Progression: 1.Tight control of BP, BS, Lipids, passive smoking etc 2.Avoid any NSAIDs 3.Avoid IV contrast (Oral contrast OK). 4.Careful selection of Abx, dose for current GFR. 5.DASH diet, along with limiting the protein intake. Recommended protein intake no more than 1 gm/kg/day. Na =2 gm per day. Limit Phosphorus and Purines in diet too. Paroxysmal atrial fibrillation (HCC) Previously followed by cardiology. On rate control No indication for AC at this time Has lost 100lb Elevated uric acid in blood On allopurinol Orders: URIC ACID; Future Dyslipidemia Statin intolerance Orders: LIPID PANEL REFLEX; Future Obesity, Class I, BMI 30-34.9 100lb weight loss over the past 18 mos with diet, exercise and GLP Doing well Continue same Orders: VITAMIN B12/ FOLIC ACID; Future Screening for thyroid disorder Orders: TSH REFLEX TO FT4; Future Chronic midline thoracic back pain Having acute on chronic mid to right thoracic pain. Sees pain mgmt at [facility] Will get outpt xray and have her keep followup apt with Dr. Zelaya to discuss Orders: XR THORACIC SPINE AP AND LATERAL; Future Dysuria +WBC, will cover for UTI with macrobid while culture pending To increase fluids Reviewed UTI treatment and prevention Orders: URINE CULTURE (NO STAIN); Future SEP URINALYSIS POC nitrofurantoin, macrocrystal-monohydrate, (MACROBID) 100 mg Oral Capsule; Take 1 Capsule by mouth 2times daily for 7 days. Progress Note: Vitals: 11/20/24 1009 BP: 110/78 Pulse: 81 Resp: 18 Temp: 97.4 ??F (36.3 ??C) TempSrc: Forehead SpO2: 99% Weight: 203 lb (92.1 kg) Height: 5' 5 (1.651 m) Body mass index is 33.78 kg/m??. SUBJECTIVE: Chief Complaint Patient presents with Shoulder Pain right HPI: Well Adult: Subjective Ms. Madden is a 54 y.o. female here for an annual wellness visit. Diet: smaller portions, healthier foods Exercise: active, works in garden, plays with grandchildren. Activities of Daily Living: Functional Level: Self-care ADL Limitations: none Social Interaction Screen: Do you have concerns about issues that may impact social interaction such as developmental or behavioral/mental health conditions? no Health Maintenance Due Topic Date Due Kidney Health: uACR 10/23/2024 Hemoglobin A1c 11/04/2024 Health Maintenance Topic Date Due Kidney Health: uACR 10/23/2024 Hemoglobin A1c 11/04/2024 Hepatitis B Vaccine (1 of - 19+ 3-dose series) 11/20/2024 (Originally 07/03/1987) DTaP/TDaP/Td (1 - Tdap) 11/21/2024 (Originally 07/03/1987) Zoster (1 of 2) 11/21/2024 (Originally 2018) COVID-19 Vaccine (1 - 2023- season) 2024 (Originally 12/15/2023) Pneumococcal Vaccine 50+ (1 of 2 - PCV) 12/04/2024 (Originally 07/03/1987) Influenza Vaccine (1) 12/14/2024 Lipids 05/07/2025 Kidney Health: eGFR 05/07/2025 Annual Wellness Exam 11/20/2025 Diabetic Eye Exam 12/23/2025 Breast Cancer Screening 08/31/2026 Cervical Cancer Screening 05/22/2028 Colon Cancer Screening 11/02/2034 Meningococcal B Vaccine Aged Out Immunization History Administered Date(s) Administered Influenza Seasonal [...] Dyslipidemia Stage 3b chronic kidney disease (HCC) Elevated uric acid in blood Paroxysmal atrial fibrillation (HCC) RADHA (obstructive sleep apnea) Statin myopathy Cardiac arrhythmia Morbid obesity (HCC) Nicotine dependence Vitamin D deficiency Sacroiliitis Grief reaction Mixed stress and urge incontinence Past 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: Diagnosis Date A-fib (HCC) Hypertension Irregular heart beat Migraines Normocytic anemia 10/23/2022 Sleep apnea Past Surgical History: Procedure Laterality Date BACK SURGERY 10/2015 T9-T10 spinal fx requiring olga. BREAST REDUCTION SURGERY SECTION 1987 CHOLECYSTECTOMY TOTAL KNEE ARTHROPLASTY Bilateral TUBAL LIGATION Allergies Allergen Reactions Tylenol-Codeine #3 [Acetaminophen-Codeine] Hives Current Outpatient Medications on File Prior to [...] Tablets by mouth daily. 60 Tablet 0 b ecxzoue-M-mbcde acid (NEPHROCAP) 1 mg Oral Capsule Take 1 Capsule by mouth daily. Cholecalciferol, Vitamin D3, 125 mcg (5,000 unit) Oral Capsule Take 5,000 Units by mouth daily. 30 Capsule 0 cyanocobalamin 1,000 mcg Oral Tablet Take 1 Tablet by mouth daily. 30 Tablet 0 dapagliflozin propanediol (FARXIGA) 10 mg Oral Tablet TAKE ONE TABLET BY MOUTH ONCE A DAY 100 Tablet 1 ergocalciferol (DRISDOL) 1,250 mcg (50,000 unit) Oral Capsule TAKE 1 CAPSULE BY MOUTH ONE TIME PER WEEK 4 Capsule 5 ezetimibe (ZETIA) 10 mg Oral Tablet TAKE ONE TABLET BY MOUTH ONCE A DAY 30 Tablet 2 fish oil OTC (OMEGA-3 DHA-EPA 300 MG) [...] BY MOUTH TWICE DAILY 60 Tablet 2 traZODone (DESYREL) 50 mg Oral Tablet TAKE ONE TABLET BY MOUTH EVERY NIGHT 30 Tablet 5 Zinc Acetate, Oral, 50 mg (zinc) Oral Capsule Take 50 mg by mouth daily. 30 Capsule 0 No current facility-administered medications on file prior to visit. Social History Socioeconomic History Marital status: Spouse name: None Number of children: None Years of education: None Highest education level: None Tobacco Use Smoking status: Never Smokeless tobacco: Current Types: Snuff Vaping Use Vaping status: Never Used Substance and Sexual Activity Alcohol use: Not Currently Drug use: Never Sexual activity: Yes Partners: Male Social Drivers of Health Financial Resource Strain: Low Risk (03/05/2023) Overall Financial Resource Strain (CARDIA) Difficulty of Paying Living Expenses: Not very hard Received from [employer] ([place], [place], [place], [place]) Food Insecurity Transportation Needs: No Transportation Needs (03/05/2023) PRAPARE - Transportation Lack of Transportation (Medical): No Lack of Transportation (Non-Medical): No Physical Activity: Inactive (03/05/2023) Exercise Vital Sign Days of Exercise per Week: 0 days Minutes of Exercise per Session: 0 min Stress: No Stress Concern Present (03/05/2023) [employer] [facility] [employer] [facility] - Occupational Stress Questionnaire Feeling of Stress : Only a little Received from [employer] ([place], [place], [place], [place]) Family and Community Support Received from [facility] Abuse Screen Received from [employer] ([place], [place], [place], [place]) Housing Stability Family History Problem Relation Age of Onset Lung Cancer Mother Heart Disease Father Congenital Disease Brother Diabetes Brother Uterine Cancer Daughter No Known Problems Daughter No Known Problems Son No results found. Results for orders placed or performed in visit on 11/20/24 SEP URINALYSIS POC Result Value Ref Range UA Color POC Yellow Color UA Appear POC Clear Clear UA Gluc POC Negative Negative mg/dL UA Bili POC Small (A) Negative UA Ketones POC Negative Negative mg/dL UA SG POC >=1.030 1.001 - 1.035 no units UA Blood POC Negative Negative UA pH POC 6.0 5.0 - 8.0 pH UA Protein POC 30 (A) Negative mg/dL UA Urobilinogen POC 0.2 0.2, 1.0 UA Nitrite POC Negative Negative UA Leuk Est POC Small (A) Negative Patient Care Team: Juana Bailey APRN as PCP - General (Nurse Practitioner-Family) Lab Results Component Value Date WBC 9.4 10/24/2023 HGB 12.6 10/24/2023 HCT 39.0 10/24/2023 PLT 204 10/24/2023 CHOLESTEROL 173 05/07/2024 TRIG 129 05/07/2024 HDL 49 05/07/2024 LDLCALC 101 (H) 05/07/2024 ALT 17 05/07/2024 AST 20 05/07/2024 NA 141 05/07/2024 K 4.1 05/07/2024 CL 101 05/07/2024 CREATININE 0.75 05/07/2024 BUN 22 (H) 05/07/2024 CO2 29 05/07/2024 GLU 99 05/07/2024 HGBA1C 6.2 (H) 05/07/2024 MICROALBUR 80 10/23/2022 TSHREFLEX 4.180 10/24/2023 Additional issues addressed today: Diabetes: Jane following up today for diabetes. Current symptoms/problems include none. Current monitoring regimen: none Home blood sugar records: n/a Any episodes of hypoglycemia? no On insulin? No Weight trend: Body mass index is 33.78 kg/m??. Wt Readings from Last 3 Encounters: 11/20/24 203 lb (92.1 kg) 11/11/24 208 lb (94.3 kg) 11/04/24 211 lb (95.7 kg) A1c trend: Lab Results Component Value Date HGBA1C 6.2 (H) 05/07/2024 HGBA1C 6.1 (H) 10/24/2023 HGBA1C 6.3 (H) 06/21/2023 Renal trend: No results found for: GFRAFRAM No results found for: GFRNONAFRAM Lab Results Component Value Date GFRCKDEPI 94 05/07/2024 GFRCKDEPI 87 10/24/2023 GFRCKDEPI 81 06/21/2023 Lipid trend: Lab Results Component Value Date LDLCALC 101 (H) 05/07/2024 Other concerns Acute on chronic thoracic pain radiating to the right of her back. Will get intermittent sharp painwith certain movements. Known deg disc. No new injuries but has been more physically active with weight loss and working in the garden. Has pre-existing chronic pain. Sees Dr. Zelaya at [facility] for interventional treatment. Right now with med mgmt only. Possible UTI; dysuria, urgency. Review of Systems Constitutional: Negative for fever. HENT: Negative for congestion. Respiratory: Negative for cough, shortness of breath and wheezing. Cardiovascular: Negative for chest pain, palpitations and leg swelling. Musculoskeletal: Positive for arthralgias, back pain and myalgias. Skin: Negative for rash and wound. Hematological: Negative for adenopathy. Does not bruise/bleed easily. OBJECTIVE: Results for orders placed or performed in visit on 11/20/24 SEP URINALYSIS POC Result Value Ref Range UA Color POC Yellow Color UA Appear POC Clear Clear UA Gluc POC Negative Negative mg/dL UA Bili POC Small (A) Negative UA Ketones POC Negative Negative mg/dL UA SG POC >=1.030 1.001 - 1.035 no units UA Blood POC Negative Negative UA pH POC 6.0 5.0 - 8.0 pH UA Protein POC 30 (A) Negative mg/dL UA Urobilinogen POC 0.2 0.2, 1.0 UA Nitrite POC Negative Negative UA Leuk Est POC Small (A) Negative Physical Exam Constitutional: Appearance: She is obese. HENT: Head: Normocephalic and atraumatic. Cardiovascular: Rate and Rhythm: Normal rate and regular rhythm. Heart sounds: Normal heart sounds. Pulmonary: Effort: Pulmonary effort is normal. Breath sounds: Normal breath sounds. Musculoskeletal: General: Tenderness present. Thoracic back: Tenderness present. No deformity. Normal range of motion. No scoliosis. Neurological: Mental Status: She is alert and oriented to person, place, and time. * Tito Pal MA - 11/20/2024 10:15 AM EDT Venipuncture in the right antecubital vein with 21 gauge needle, length 1 1/2 inch. documented in this encounter Plan of Treatment Upcoming Encounters Date Type Department Care Team (Late st Contact Info) Description 12/11/2024 10:00 AM EDT Clinical Support [facility] [address] [place] [phone] Scheduled Orders Name Type Priority Associated Diagnoses Orde r Schedule XR THORACIC SPINE AP AND LATERAL Imaging Routine Chronic midline thoracic back pain 1 Occurrences starting 11/20/2024 until 11/20/2025 documented as of this encounter Goals Goal Patient Goal Type Associated Problems Recent Progress Patient-Stated? Author Blood Pressure < 140/90 Blood Pressure 110/78(2024 10:09 AM EDT) No Juana Bailey APRN Maintain a healthy diet, exercise regularly and maintain an ideal body weight General No Noelle Yeh RMA BMI (Calculated) < 30 General 33.9(11/21/19 25 10:09 AM EDT) No Juana Bailey APRN Stay Tobacco Free Lifestyle No Juana Bailey APRN HEMOGLOBIN A1C < 7.0 Result Component 5.9( 10:54 AM EDT) No Juana Bailey APRN documented as of this encounter Procedures Procedure Name Priority Date/Time Associated Diagnosis Comments LIPID PANEL REFLEX Routine 11/20/2024 10 :54 AM EDT Statin myopathy Dyslipidemia VITAMIN B12/ FOLIC ACID Routine 11/20/2024 10:54 AM EDT Obesity, Class I, BMI 30-34.9 TSH REFLEX TO FT4 Routine 11/20/2024 10: 54 AM EDT Screening for thyroid disorder VITAMIN D 25 HYDROXY Routine 11/20/2024 10:54 AM EDT Vitamin D deficiency CBC WITH DIFF Routine 11/20/2024 10:54 AM EDT Annual physical exam URIC ACID Routine 11/20/2024 10:54 AM EDT Elevated uric acid in blood HEMOGLOBIN A1C Routine 11/20/2024 10:54 AM EDT Type 2 diabetes mellitus with hyperlipidemia (HCC) COMPREHENSIVE METABOLIC PANEL Routine 11/20/2024 10:54 AM EDT Annual physical exam MICROALBUMIN/CREATINI NE RATIO URINE Routine 11/20/2024 10:38 AM EDT Type 2 diabetes mellitus with hyperlipidemia (HCC) URINE CULTURE (NO STAIN) Routine 11/20/2024 10:38 AM EDT Dysuria SEP URINALYSIS POC Routine 11/20/2024 10 :35 AM EDT Dysuria documented in this encounter Results * URIC ACID (11/20/2024 10:54 AM EDT) Uric Acid 4.6 2.4 - 5.7 mg/dL 11/20/2024 3:56 PM EDT [facility] [employer] [facility] VENOUS BLOOD / Unknown Venipuncture / Unknown 11/20/2024 10:54 AM EDT 11/20/2024 10:54 AM EDT us Juana Bailey APPLICATIONS ENGINEER MANUFACTURING CHEMISTRY ORDERABLES Final Result [employer] [address], [place] [address] * VITAMIN D 25 HYDROXY (11/20/2024 10:54 AM EDT) Vit D 25 OH 74.6 30.0 - 150.0 ng/mL 11/20/2024 4:50 PM EDT [facility], [facility] Comment: Preferred: >= 30 ng/mL Insufficient: 21-29 ng/mL Deficient <= 20 ng/mL Possible Toxicity: >150 ng/mL Samples should not be taken from patients receiving therapy with high biotin doses (i.e. > 5 mg/day) until at least 8 hours following the last biotin administration. Blood VENOUS BLOOD / Unknown Venipuncture / Unknown 11/20/2024 10:54 AM EDT 11/20/2024 10:54 AM EDT [facility] CHEMISTRY ORDERABLES Final Result Performing Organization Address [facility] de Phone Number [address] [place] [address] * (ABNORMAL) VITAMIN B12/ FOLIC ACID (11/20/2024 10:54 AM EDT) Vitamin B12 1,375(H) 232 - 1,245 pg/mL 11/20/2024 4:50 PM EDT [facility]REFERRED [facility], [facility], [facility] Folate >16.00 >=4.80 ng/mL 11/20/2024 4:50 PM EDT [facility] [employer], [facility] Blood VENOUS BLOOD / Unknown Venipuncture / Unknown 11/20/2024 10:54 AM EDT 11/20/2024 10:54 AM EDT Narrative PREFERRED [facility] [employer], [facility] - 11/20/2024 4:50 PM EDT Ingestion of omar doses of biotin (>5 mg/day) taken within 8 hours of drawing blood sample can interfere with this immunoassay test. [facility] CHEMISTRY ORDERABLES Final Result Performing Organization Address [facility] de Phone Number [facility] [employer] [address] * TSH REFLEX TO FT4 (11/20/2024 10:54 AM EDT) TSH Reflex 1.690 0.270 - 4.200 mcIU/mL 11/20/2024 3:56 PM EDT [facility] Blood VENOUS BLOOD / Unknown Venipuncture / Unknown 11/20/2024 10:54 AM EDT 11/20/2024 10:54 AM EDT Narrative [facility] - 11/20/2024 3:56 PM EDT Ingestion of omar doses of biotin (>5 mg/day) taken within 8 hours of drawing blood sample can interfere with this immunoassay test. Juana Bailey APPLICATIONS ENGINEER MANUFACTURING CHEMISTRY ORDERABLES Final Result [facility] [address] [facility] , [place] [address] * (ABNORMAL) LIPID PANEL REFLEX (11/20/2024 10:54 AM EDT) Cholesterol 219(H) <200 mg/dL 11/20/2024 3:56 PM EDT [facility] Comment: < 200 Desirable 200 - 239 Borderline High >= 240 High Triglyceride 184(H) <150 mg/dL 11/20/2024 3:56 PM EDT [facility] Comment: < 150 Normal 150 - 199 Borderline High 200 - 499 High >= 500 Very High HDL 54 >=40 mg/dL 11/20/2024 3:56 PM EDT [facility] Comment: > 60 Optimal 40 - 60 Acceptable < 40 Low LDL Calculated 132(H) <100 mg/dL 11/20/2024 3:56 PM EDT [facility] Comment: < 100 Optimal 100 - 129 Near or above optimal 130 - 159 Borderline High 160 - 189 High >= 190 Very High The National Institutes of Health (NIH) equation is used for all lipid panels that report calculated LDL (LDL-C). Non-HDL-C Calculated 165(H) <=129 mg/dL 11/20/2024 3:56 PM EDT [facility] Comment: <130 Desirable 130-159 Above Desirable 160-189 Borderline High 190-219 High >= 220 Very High Fasting Specimen? Yes None 025 3:56 PM EDT [facility] Blood VENOUS BLOOD / Unknown Venipuncture / Unknown 11/20/2024 10:54 AM EDT 11/20/2024 10:54 AM EDT Juana Bailey APRN CHEMISTRY ORDERABLES Final Result Performing Organization Address [facility] de Phone Number [facility] , [place] [address] * (ABNORMAL) HEMOGLOBIN A1C (11/20/2024 10:54 AM EDT) Pathologist [facility] [place] Hgb A1C 5.9(H) 4.2 - 5.6 % 11/20/2024 4:02 PM EDT [facility] Est. Avg Glucose 123 mg/dL 11/20/2024 4:02 PM EDT [facility], [facility] Blood VENOUS BLOOD / Unknown Venipuncture / Unknown 11/20/2024 10:54 AM EDT 11/20/2024 10:54 AM EDT Narrative [facility], [facility] - 11/20/2024 4:02 PM EDT REFERENCE RANGE: Normal: 4.0-5.6% Pre-diabetes: 5.7-6.4% Provisional diagnosis of diabetes: >6.4% Hgb F>10% and anything which shortens red cell survival, such as hemolytic anemia, or unstable hemoglobin variants such as HbSS, HbSC, or HbCC, will lower the HbA1c value associated with a given level of glycemic control. Juana Bailey APRN CHEMISTRY ORDERABLES Final Result Performing Organization Address [facility] de Phone Number [facility] , [place] [address] * (ABNORMAL) COMPREHENSIVE METABOLIC PANEL (11/20/2024 10:54 AM EDT) Pathologist [facility] [place] Sodium 136 136 - 145 mmol/L 11/20/2024 3:56 PM EDT [facility] [employer], [facility] Potassium 3.1(L) 3.5 - 5.0 mmol/L 11/20/2024 3:56 PM EDT [facility] [employer], [facility] Chloride 97(L) 98 - 107 mmol/L 11/20/2024 3:56 PM EDT [facility] Total CO2 21(L) 22 - 29 mmol/L 11/20/2024 3:56 PM EDT [facility] Anion Gap 18(H) 7 - 16 mmol/L 11/20/2024 3:56 PM EDT [facility] Calcium 10.6(H) 8.6 - 10.4 mg/dL 11/20/2024 3:56 PM EDT [facility] Glucose Lvl 128(H) 70 - 99 mg/dL 11/20/2024 3:56 PM EDT [facility] BUN 19 6 - 20 mg/dL 11/20/2024 3:56 PM EDT [facility] Creatinine 0.77 0.51 - 1.30 mg/dL 11/20/2024 3:56 PM EDT [facility] Albumin 4.5 3.5 - 5.2 gm/dL 11/20/2024 3:56 PM EDT [facility] Total Protein 8.5(H) 6.4 - 8.3 gm/dL 11/20/2024 3:56 PM EDT [facility] Bili Total 0.8 0.2 - 1.3 mg/dL 11/20/2024 3:56 PM EDT [facility] ALT 28 <=41 U/L 11/20/2024 3:56 PM EDT [facility] AST 27 <=40 U/L 11/20/2024 3:56 PM EDT [facility] Alk Phos 129(H) 36 - 123 U/L 11/20/2024 3:56 PM EDT [facility] eGFR (CKD-EPIcr 2020) 90 >=60 mL/min/1.7 3 m2 11/20/2024 3:56 PM EDT [facility] Comment:Estimated GFR was ca lculated using the CKD-EPIcr (2020) equation refit without race. The equation is recommended by the National Kidney Foundation - [place] [employer] of Nephrology Task Force. Blood VENOUS BLOOD / Unknown Venipuncture / Unknown 11/20/2024 10:54 AM EDT 11/20/2024 10:54 AM EDT Juana Bailey APPLICATIONS ENGINEER MANUFACTURING CHEMISTRY ORDERABLES Final Result [facility] [address] [facility] , [place] [address] * CBC WITH DIFF (11/20/2024 10:54 AM EDT) WBC 8.4 3.7 - 10.3 x10(3)/mcL 11/20/2024 3:38 PM EDT [facility] RBC 4.72 3.90 - 5.20 x10(6)/mcL 11/20/2024 3:38 PM EDT [facility] Hgb 14.7 11.2 - 15.7 g/dL 11/20/2024 3:38 PM EDT [facility] Hct 44.3 34.0 - 45.0 % 11/20/2024 3:38 PM EDT [facility] MCV 93.9 80.0 - 100.0 fL 11/20/2024 3:38 PM EDT [facility] MCH 31.1 26.0 - 34.0 pg 11/20/2024 3:38 PM EDT [facility] MCHC 33.2 30.7 - 35.5 g/dL 11/20/2024 3:38 PM EDT [facility] RDW 13.4 <=14.9 % 11/20/2024 3:38 PM EDT [facility] Platelet 277 155 - 369 x10(3)/mcL 11/20/2024 3:38 PM EDT [facility] MPV 11.4 8.8 - 12.5 fL 11/20/2024 3:38 PM EDT [facility] Neut Percent 58.5 % 11/20/2024 3:38 PM EDT [facility] Comment:Neutrophils equals s egs plus bands Imm Gran% 0.5 % 11/20/2024 3:38 PM EDT [facility] Comment:Automated count of m etamyelocytes, myelocytes and promyelocytes. Lymph Percent 29.9 % 11/20/2024 3:38 PM EDT [facility] Leslie Percent 6.9 % 11/20/2024 3:38 PM EDT [facility] Eos Percent 3.5 % 11/20/2024 3:38 PM EDT [facility] Baso Percent 0.7 % 11/20/2024 3:38 PM EDT [facility] Neut # 4.9 1.6 - 6.1 x10(3)/Health system 11/20/2024 3:38 PM EDT [facility] Comment:Neutrophils equals s egs plus bands IMMGRAN# 0.0 0.0 - 0.1 x10(3)/mcL 11/20/2024 3:38 PM EDT [facility] Comment:Automated count of m etamyelocytes, myelocytes and promyelocytes. An absolute IG <0.1 is reported as 0.0. Lymph # 2.5 1.2 - 3.9 x10(3)/mcL 11/20/2024 3:38 PM EDT [facility] Leslie # 0.6 0.3 - 0.9 x10(3)/mcL 11/20/2024 3:38 PM EDT [facility] Eos# 0.3 0.0 - 0.5 x10(3)/mcL 11/20/2024 3:38 PM EDT [facility] Baso # 0.1 0.0 - 0.1 x10(3)/mcL 11/20/2024 3:38 PM EDT [facility] Blood VENOUS BLOOD / Unknown Venipuncture / Unknown 11/20/2024 10:54 AM EDT 11/20/2024 10:54 AM EDT Juana Bailey APPLICATIONS ENGINEER MANUFACTURING HEMATOLOGY ORDERABLES Final Result [facility] [address] [facility] , [address] [place] [id number] * URINE CULTURE (NO STAIN) (11/20/2024 10:38 AM EDT) Culture Multiple bacterial species isolated from urine consistent with urogenital commensal organisms. 11/22/2024 7:02 AM EDT [facility] Urine STRUCTURE OF URINARY TRACT PROPER / Unknown 11/20/2024 10:38 AM EDT 11/20/2024 10:38 AM EDT Juana Bailey APRN MICROBIOLOGY - GENERAL ORDE RABLES Final Result Performing Organization Address [facility]/ZIP Co de Phone Number [facility] [address] [facility] , [place] [address] * MICROALBUMIN/CREATININE RATIO URINE (11/20/2024 10:38 AM EDT) Urine Microalb 68.9 mg/L 11/20/2024 4:46 PM EDT [facility] Urine Creatinine 284.0 mg/dL 11/20/2024 4:46 PM EDT [facility] Ur Microalb/Creat 24 0 - 30 mg/g 11/20/2024 4:46 PM EDT [facility] Urine STRUCTURE OF URINARY TRACT PROPER / Unknown 11/20/2024 10:38 AM EDT 11/20/2024 10:38 AM EDT Juana Bailey APRN URINE ORDERABLES Final Resu lt Performing Organization Address City/[facility]/ZIP Co de Phone Number [facility] [employer], [facility] [address] [facility] , [address] [place] [id number] * (ABNORMAL) SEP URINALYSIS POC (11/20/2024 10:35 AM EDT) UA Color POC Yellow Color 11/20/2024 10:38 AM EDT [facility] [place] [facility] Appear POC Clear Clear 11/20/2024 10:38 AM EDT [facility] [place] [facility] Gluc POC Negative Negative mg/dL 11/20/2024 10:38 AM EDT [facility] [place] [facility] Bili POC Small(A) Negative 11/20/2024 10:38 AM EDT [facility] [place] [facility] Ketones POC Negative Negative mg/dL 11/20/2024 10:38 AM EDT [facility] [place] [facility] SG POC >=1.030 1.001 - 1.035 no units 11/20/2024 10:38 AM EDT [facility] [place] [facility] Blood POC Negative Negative 11/20/2024 10:38 AM EDT [facility] [place] [facility] pH POC 6.0 5.0 - 8.0 pH 11/20/2024 10:38 AM EDT [facility] [place] [facility] Protein POC 30(A) Negative mg/dL 11/20/2024 10:38 AM EDT [facility] [place] [facility] Urobilinogen POC 0.2 0.2, 1.0 11/20/2024 10:38 AM EDT [facility] [place] [facility] Nitrite POC Negative Negative 11/20/2024 10:38 AM EDT [facility] [place] [facility] Leuk Est POC Small(A) Negative 10:38 AM EDT [facility] [place] Urine STRUCTURE OF URINARY TRACT PROPER / Unknown 11/20/2024 10:35 AM EDT 11/20/2024 10:38 AM EDT Juana Bailey APRN POINT OF CARE TEST ORDERABL ES Final Result [facility] [place] [address] [place] [address] documented in this encounter Visit Diagnoses Diagnosis Annual physical exam- Primary Routine general medical examination at a health care facility Vitamin D deficiency Unspecified vitamin D deficiency Type 2 diabetes mellitus with hyperlipidemia (HCC) Statin myopathy Toxic myopathy Stage 3b chronic kidney disease (HCC) Paroxysmal atrial fibrillation (HCC) Atrial fibrillation Elevated uric acid in blood Other abnormal blood chemistry Dyslipidemia Other and unspecified hyperlipidemia Obesity, Class I, BMI 30-34.9 Obesity, unspecified Screening for thyroid disorder Chronic midline thoracic back pain Dysuria documented in this encounter Discontinued Medications Medication Sig Discontinue Reason Start Date End Da te aspirin-dipyridamole (AGGRENOX) 25-200 mg Oral Cap, Multiphasic Release 12 hr Take 1 Capsule by mouth 2 times daily. Once daily DELETE-Therapy completed 11/20/2024 conjugated estrogens (PREMARIN) Vagl CreamIndications:Vagin al atrophy Place 0.5 g vaginally every other day. DELETE-Therapy completed 02/20/2023 11/20/2024 documented as of this encounter Care Teams Watershed Engineer Relationship Specialty Start Date End Date Juana Bailey APRN [address] [place], [place] [address] PCP - General Nurse Practitioner-Family 08/29/22 documented as of this encounter
[2024-12-07 10:44] VITALS: BP 104/69; PULSE 80; RESP 14; O2SAT 96; BMI 34.1
--- OUTSIDE RECORDS SUMMARY | 2024-12-07 11:20 | XMS_ITS | Clinical Summary ---
Author Organization Healthcare Address [address] [place] [address] Care Team Providers Care Recycling Operator Name Role Phone Gamal Queen MD Primary Care Provider [phone] Family History 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 Relation Name Comments [...] of Treatment Not on file Care Teams Recycling Operator Relationship Specialty Start Date End Date Gamal Queen MD [facility] [place] [address] PCP - General 08/26/20
--- OUTSIDE RECORDS SUMMARY | 2024-12-07 11:20 | XMS_ITS | Encounter Summary ---
Author Organization [place] [address] Care Team Providers Care Repack Room Worker Name Role Phone Juana Bailey APRN Primary Care Provider [phone] Reason for Visit * Reason Onset Date Comments Other 09/30/2024 Asking to speak with Juana Bailey APRN Encounter Details Date Type Department Care Team (Late Contact Info) Description 09/30/2024 Telephone [facility] [address] [place] [address] Juana Bailey APRN [address] [place] [address] Other (Asking to speak with Juana [...] Date Recorded PHQ-2 Total Score 0 10/24/2023 [facility] of Occupat ional Health - Occupational Stress [...] AM EDT Clinical Support [facility] [place] [address] [place] [phone] documented as of this encounter Goals Goal Patient Goal Type Associated Problems Recent Progress Patient-Stated? Author Blood Pressure < 140/90 Blood Pressure 110/78(2024 10:09 AM EDT) No Juana aBiley APRN Maintain a healthy diet, exercise regularly [...] on filedocumented in this encounter Care Teams Repack Room Worker Relationship Specialty Start Date End Date Juana Bailey APRN [address] [place] [address] PCP - General Nurse Practitioner-Family 08/29/22 documented as of this encounter
--- OUTSIDE RECORDS SUMMARY | 2024-12-07 11:20 | XMS_ITS | Clinical Summary ---
[facility] Address [address] [place] [address] Care Team Providers Care Watch And Clock Maker And Repairer Name Role Phone Klarissa Napier SUPERVISOR OF OPERATIONS Primary Care Provider [phone] Social History Tobacco Use Types Packs/Day Years [...] 2023 INFLUENZA VACCINE 01/13/2025 01/15/2019 Care Teams Watch And Clock Maker And Repairer Relationship Specialty Start Date End Date Klarissa Napier APRN [address] [place] [address] PCP - General 11/25/14
--- OUTSIDE RECORDS SUMMARY | 2024-12-07 11:20 | XMS_ITS | Encounter Summary ---
Author Organization [place] [address] Care Team Providers Care Biomedical Engineering Technician Name Role Phone Juana Bailey APRN Primary Care Provider [phone] Reason for Visit * Reason Onset Date Comments Appointment Needed 09/02/2024 Working in [facility] Saturday, muscle soreness, back of legs, requesting steriod shot Encounter Details Date Type Department Care Team (Late st Contact Info) Description 09/02/2024 Telephone [facility] [address] [place] [phone] Juana Bailey APRN [address] [facility] [place] [address] Appointment Needed (Working in [...] 0 10/24/2023 [facility] [place] of Occupat ional Health - Occupational Stress [...] Procedure Detailed Reason for Appt: Working in [employer] x Saturday, muscle soreness, back of legs, [...] AM EDT Clinical Support [facility] [place] [address] [place], [place] [address] documented as of this encounter Goals Goal Patient Goal Type Associated Problems Recent Progress Patient-Stated? Author Blood Pressure < 140/90 Blood Pressure 110/78(2024 10:09 AM EDT) No Juana Bailey, BUYER TOBACCO HEAD Maintain a healthy diet, exercise regularly and maintain an ideal body weight General No Ruba, Noelle L, RMA BMI (Calculated) < 30 General 33.9(11/21/19 25 10:09 AM EDT) No Juana Bailey APRN Stay Tobacco Free Lifestyle No Juana Bailey APRN HEMOGLOBIN A1C < 7.0 Result Component 5.9( 5 10:54 AM EDT) No Juana Bailey APRN documented as of this encounter Visit Diagnoses Not on filedocumented in this encounter Care Teams Biomedical Engineering Technician Relationship Specialty Start Date End Date Juana Bailey APRN [address] [place], [place] [address] PCP - General Nurse Practitioner-Family 08/29/22 documented as of this encounter
--- OUTSIDE RECORDS SUMMARY | 2024-12-07 11:20 | XMS_ITS | Encounter Summary ---
Author Organization [place] [address] Care Team Providers Care Old Coin Dealer Name Role Phone Juana Bailey APRN Primary Care Provider [phone] Reason for Visit * Reason Onset Date Comments Other 09/09/2024 tick bite Encounter Details Date Type Department Care Team (Late st Contact Info) Description 09/09/2024 Telephone [facility] [address] [place] [address] Juana Bailey APRN [address] [facility] [place] [address] Other (tick bite) Social History Tobacco Use Types Packs/Day Years Used Date Smoking Tobacco: Never Smokeless Tobacco: Current Snuff Alcohol Use Standard Drinks/Week Comments Not Currently 0 (1 standard drink = 0.6 oz pur e alcohol) Overall Financial Resource Strain ([facility]) Answe r Date Recorded How hard is it for you to pa y for the very basics like food, housing, medical care, and heating? Not very hard 03/05/2023 PHQ-2 Answer Date Recorded PHQ-2 Total Score 0 10/24/2023 [facility] of Occupat ional Health - Occupational Stress [...] EDT Clinical Support [facility] [place] [facility] [address] [place] [phone] documented as of this encounter Goals Goal Patient Goal Type Associated Problems Recent Progress Patient-Stated? Author Blood Pressure < 140/90 Blood Pressure 110/78(2024 10:09 AM EDT) No Juana Bailey, TELEPHONE INTERVIEWER Maintain a healthy diet, exercise regularly and maintain an ideal body weight General No Noelle Yeh RMA BMI (Calculated) < 30 General 33.9(11/21/19 10:09 AM EDT) No Juana Bailey, TELEPHONE INTERVIEWER Stay Tobacco Free Lifestyle No Juana Bailey APRN HEMOGLOBIN A1C < 7.0 Result Component 5.9( 10:54 AM EDT) No Juana Bailey TELEPHONE INTERVIEWER documented as of this encounter Visit Diagnoses Not on filedocumented in this encounter Care Teams Old Coin Dealer Relationship Specialty Start Date End Date Juana Bailey APRN [address] [place] [address] PCP - General Nurse Practitioner-Family 08/29/22 documented as of this encounter
--- OUTSIDE RECORDS SUMMARY | 2024-12-07 11:20 | XMS_ITS | Encounter Summary ---
Author Organization [facility] [place] [address] Care Team Providers Care Rental Clerk Tool And Equipment Name Role Phone Juana Bailey APRN Primary Care Provider [phone] Reason for Visit * Reason Onset Date Comments Relaying Information 11/27/2024 Pt. Has a q uestion about a medication that she is supposed to stop taking for a few weeks and is confused on which medication that it is. Please call Pt. To clarify. Encounter Details Date Type Department Care Team (Late st Contact Info) Description 11/27/2024 Telephone [facility] [place] [address] [place] [address] Juana Bailey APRN [address] [facility] [place] [address] Relaying Information (Pt. Has a question about a medication that she is supposed to stop taking for a few weeks and is confused on which medication that it is. /Please call Pt. To clarify. /) Social History Tobacco Use Types Packs/Day [...] Date Recorded PHQ-2 Total Score 0 11/20/2024 [facility] [place] of Occupat ional Health - Occupational Stress [...] of Assessment Author No 11/20/2024 10:18 AM EDT Sarah Crowell CCMA * Is the person blind or does he/she have serious difficulty seeing even when wearing glasses? Answer Date of Assessment Author No 11/20/2024 10:18 AM EDT Sarah Crowell CCMA * Does this person have serious difficulty walking or climbing stairs? Answer Date of Assessment Author No 11/20/2024 10:18 AM EDT Sarah Crowell CCMA * Does this person have difficulty dressing or bathing? Answer Date of Assessment Author No 11/20/2024 10:18 AM EDT Sarah Crowell CCMA * Because of a physical, mental or emotional condition, does this person have difficulty doing errands alone such as visiting a doctor's office or shopping? Answer Date of Assessment Author No 11/20/2024 10:18 AM EDT Sarah Crowell CCMA documented as of this encounter Mental Status * Because of a physical, mental or emotional condition, does this person have serious difficulty concentrating, remembering or making decisions? Answer Entry Date Author No 11/20/2024 10:18 AM EDT Sarah Crowell CCMA documented in this encounter Miscellaneous Notes * Telephone Encounter - Sarah Crowell CCMA - 11/27/2024 10:10 AM EDT Spoke with pt * Telephone Encounter - Scooter Porter - 11/27/2024 9:59 AM EDT Select the most appropriate reason for this telephone message: Relaying Information Relaying Information Who is Calling: Patient What information is the caller relaying:Pt. Has a question about a medication that she is supposed to stop taking for a few weeks and is confused on which medication that it is. Please call Pt. To clarify. Further follow-up needed? Yes Return Method of Communication:Phone call Additional Information:N/A documented in this encounter Plan of Treatment Upcoming Encounters Date Type Department Care Team (Late st Contact Info) Description 12/11/2024 10:00 AM EDT Clinical Support [facility] [place] [facility] [address] [place], [place] [phone] documented as of [...] on filedocumented in this encounter Care Teams Rental Clerk Tool And Equipment Relationship Specialty Start Date End Date Juana Bailey APRN [address] [place] [address] PCP - General Nurse Practitioner-Family 08/29/22 documented as of this encounter
--- OUTSIDE RECORDS SUMMARY | 2024-12-07 11:20 | XMS_ITS | Encounter Summary ---
Author Organization [place] [address] Care Team Providers Care Bobbin Cleaning Machine Operator Name Role Phone Juana Bailey APRN Primary Care Provider [phone] Reason for Visit * Reason Comments Medication Refill Encounter Details Date Type Department Care Team (Late st Contact Info) Description 11/30/2024 Refill [facility] [address] [place] [place] [phone] Juana Bailey APRN [address] [place] [address] Medication Refill Social History Tobacco Use Types Packs/Day Years Used Date Smoking Tobacco: Never Smokeless Tobacco: Current Snuff Alcohol Use Standard Drinks/Week Comments Not Currently 0 (1 standard drink = 0.6 oz pur e alcohol) Overall Financial Resource Strain ([facility]) Answe r Date Recorded How hard is it for you to pa y for the very basics like food, housing, medical care, and heating? Not very hard 03/05/2023 PHQ-2 Answer Date Recorded PHQ-2 Total Score 0 11/20/2024 [facility] [place] of Occupat ional Health - Occupational Stress [...] TABLET BY MOUTH 2 TIMES A DAY 200 Tablet 2 12/01/2024 traZODone (DESYREL) 50 mg Oral TabletIndications:I nsomnia, persistent TAKE ONE TABLET BY MOUTH EVERY NIGHT 30 Tablet 2 12/01/2024 documented in this encounter Miscellaneous Notes * Telephone Encounter - Hattie Brown CPhT - 12/01/2024 10:20 AM EDT Trazodone - Future Visit: N/A Last Assessed Visit: 11/20/24 (AWV or similar dx) Follow-Up Date: 05/23/25 All protocols passed. Refills approved and sent to requesting pharmacy. Routed to PN Pool if an appointment is needed. Metoprolol - Future Visit: N/A Last Assessed Visit: 11/20/24 (AWV or similar dx) Follow-Up Date: 11/20/24 All protocols passed. Refills approved and sent to requesting pharmacy. Routed to PN Pool if an appointment is needed. documented in this encounter Plan of Treatment Upcoming Encounters Date Type Department Care Team (Late st Contact Info) Description 12/11/2024 10:00 AM EDT Clinical Support [facility] [place] [facility] [address] [place] [phone] documented as of this encounter Goals Goal [...] TABLET BY MOUTH 2 TIMES A DAY 12/04/2023 12/01/2024 traZODone (DESYREL) 50 mg Oral TabletIndications:Insomn ia, persistent TAKE ONE TABLET BY MOUTH EVERY NIGHT 06/16/2024 12/01/2024 documented as of this encounter Care Teams Bobbin Cleaning Machine Operator Relationship Specialty Start Date End Date Juana Bailey APRN [address] [place], [place] [address] PCP - General Nurse Practitioner-Family 08/29/22 documented as of this encounter
--- OUTSIDE RECORDS SUMMARY | 2024-12-07 11:20 | XMS_ITS | Encounter Summary ---
Author Organization [place] [address] Care Team Providers Care Boy'S Adviser Name Role Phone Juana Bailey APRN Primary Care Provider [phone] Reason for Visit * Reason Onset Date Comments Results 11/23/2024 Labs Encounter Details Date Type Department Care Team (Late st Contact Info) Description 11/23/2024 Telephone SEP Nati [address] [place] [address] Juana Bailey APRN [address] [facility] [place] [address] Results (Labs) Social History Tobacco Use Types Packs/Day Years [...] Date Recorded PHQ-2 Total Score 0 11/20/2024 [facility] [place] of Occupat ional Health - Occupational Stress [...] of Assessment Author No 11/20/2024 10:18 AM MIRIAM Crowell Amsami Russell CCMAlden * Because of a physical, mental or emotional condition, does this person have difficulty doing errands alone such as visiting a doctor's office or shopping? Answer Date of Assessment Author No 11/20/2024 10:18 AM EDT Sarah Crowell CHELSI documented as of this encounter Mental Status * Because of a physical, mental or emotional condition, does this person have serious difficulty concentrating, remembering or making decisions? Answer Entry Date Author No 11/20/2024 10:18 AM EDT SocratesSarah KOSTA RussellAlden documented in this encounter Miscellaneous Notes * Telephone Encounter - Hafsa Phillips MA - 11/24/2024 11:43 AM EDT Patient notified, asking for these results to be sent to her MyChart * Telephone Encounter - Juana Bailey APRN - 11/24/2024 11:36 AM EDT See result note. Thanks. * Telephone Encounter - Hafsa Phillips MA - 11/23/2024 1:52 PM EDT Advised patient you were out of the office today and would be back to address for her tomorrow. * Telephone Encounter - Radha Ireland - 11/23/2024 1:23 PM EDT Select the most appropriate reason for this telephone message: Test Result(s) Purpose of call: Patient seeking results Type of test: Lab Date of test: 11/20/24 Who ordered the test: Jennifer Bailey Where was test performed: [facility] Return Method of Communication: Phone Call Additional Information: N/A documented in this encounter Plan of Treatment Upcoming Encounters Date Type Department Care Team (Late st Contact Info) Description 12/11/2024 10:00 AM EDT Clinical Support ASHELY [place] [address] [place] [phone] documented as of this encounter Goals [...] Component 5.9( 10:54 AM EDT) No Juana Baliey APRN documented as of this encounter Visit Diagnoses Not on filedocumented in this encounter Care Teams Boy'S Adviser Relationship Specialty Start Date End Date Juana Bailey APRN [address] [address] PCP - General Nurse Practitioner-Family 08/29/22 documented as of this encounter
--- OUTSIDE RECORDS SUMMARY | 2024-12-07 11:20 | XMS_ITS | Encounter Summary ---
Author Organization [place] [address] Care Team Providers Care Quality Control Microbiology Supervisor Name Role Phone Juana Bailey APRN Primary Care Provider [phone] Reason for Visit * Reason Comments Medication Refill Encounter Details Date Type Department Care Team (Late st Contact Info) Description 11/01/2024 Refill SEP Nati [address] [place] [id number] Juana Bailey APRN [address] [facility] [place] [address] Medication Refill Social History Tobacco Use Types Packs/Day Years Used Date Smoking Tobacco: Never Smokeless Tobacco: Current Snuff Alcohol Use Standard Drinks/Week Comments Not Currently 0 (1 standard drink = 0.6 oz pur e alcohol) Overall Financial Resource Strain ([facility]) Answe r Date Recorded How hard is it for you to pa y for the very basics like food, housing, medical care, and heating? Not very hard 03/05/2023 PHQ-2 Answer Date Recorded PHQ-2 Total Score 0 10/24/2023 [facility] [place] of Occupat ional Health - Occupational [...] AM EDT Clinical Support ASHELY [place] [address] [phone] documented as of this encounter Goals Goal [...] documented as of this encounter Care Teams Quality Control Microbiology Supervisor Relationship Specialty Start Date End Date Juana Bailey APRN [address] [place] [id number] PCP - General Nurse Practitioner-Family 08/29/22 documented as of this encounter
--- OUTSIDE RECORDS SUMMARY | 2024-12-07 11:20 | XMS_ITS | Encounter Summary ---
Author Organization [facility] [place] [address] Care Team Providers Care Blood Collector Name Role Phone [place], Juana [place] Primary Care Provider [phone] Encounter Details Date Type Department Care Team [...] Date Recorded PHQ-2 Total Score 0 10/24/2023 [facility] of Occupat ional Health - Occupational [...] 10:00 AM EDT Clinical Support ASHELY Damian [address] [id number] documented as of this encounter Goals Goal [...] on filedocumented in this encounter Care Teams Blood Collector Relationship Specialty Start Date End Date Juana Bailey APRN [address] [place] [address] [place] [id number] PCP - General Nurse Practitioner-Family 08/29/22 documented as of this encounter
--- OUTSIDE RECORDS SUMMARY | 2024-12-07 11:20 | XMS_ITS | Encounter Summary ---
Author Organization [place] [address] Care Team Providers Care Tank Riveter Name Role Phone Juana Bailey APRN Primary Care Provider [phone] Encounter Details Date Type Department Care Team (Late st Contact Info) Description 09/08/2024 Results Follow-Up SEP Nati [address] [place] [phone] Juana Bailey APRN 77 [...] Date Recorded PHQ-2 Total Score 0 10/24/2023 [facility] [place] of Occupat ional Health - Occupational Stress [...] Assessment Author No 10/24/2023 9:27 AM Alden Poalnco CCMA documented as of this encounter Mental Status * Because of a physical, mental or emotional condition, does this person have serious difficulty concentrating, remembering or making decisions? Answer Entry Date Author No 10/24/2023 9:27 AM EDAlden Al CCMA documented in this encounter Plan of Treatment Upcoming Encounters Date Type Department Care Team (Late st Contact Info) Description 12/11/2024 10:00 AM EDT Clinical Support ASHELY Damian [address] [place] [phone] documented as of this [...] on filedocumented in this encounter Care Teams Tank Riveter Relationship Specialty Start Date End Date Juana Bailey APRN [address] [place] [address] PCP - General Nurse Practitioner-Family 08/29/22 documented as of this encounter
--- OUTSIDE RECORDS SUMMARY | 2024-12-07 11:20 | XMS_ITS | Clinical Summary ---
Author Organization [facility] Address [address] [place], [place] [address] Phone Care Team Providers Care Manager Consumer Name Role Phone Juana Bailey ZAHRA Primary Care Provider Allergies Active Allergy Reactions Criticality Noted Date Comments Acetaminophen-Codeine Hives 11/04/2024 Medications fish oil OTC (OMEGA-3 DHA-EPA 300 MG) 300-1,000 mg Oral Capsule, Delayed Release(E.C.) Take 2 g by mouth daily. Active b whjdjxc-E-wncap acid (NEPHROCAP) 1 mg Oral Capsule Take [...] for Wheezing. 1 Each 2 023 Active semaglutide (OZEMPIC) 2 mg/dose (8 mg/3 mL) SubQ Pen InjectorIndicatio ns:Type 2 diabetes mellitus with hyperlipidemia (HCC) Subcutaneous (Inject under the skin) 2 mg once a week. 3 mL 11 024 Active loratadine (CLARITIN) 10 mg Oral Tablet TAKE ONE TABLET BY MOUTH ONCE A DAY 30 Tablet 10/08/2 024 Active cyanocobalamin 1,000 mcg Oral Tablet Take 1 Tablet by mouth daily. 30 Tablet Active Zinc Acetate, Oral, 50 mg (zinc) Oral Capsule Take 50 mg by mouth daily. 30 Capsule 024 Active ascorbic acid, vitamin C, (VITAMIN C) 500 mg Oral Tablet Take 2 Tablets by mouth daily. 60 Tablet Active Cholecalciferol, Vitamin D3, 125 mcg (5,000 unit) Oral Capsule Take 5,000 Units by mouth daily. 30 Capsule 024 Active omeprazole (PRILOSEC) 20 mg Oral Capsule, Delayed Release(E.C.) TAKE 1 CAPSULE BY MOUTH ONCE A DAY 30 Capsule 5 Active allopurinoL (ZYLOPRIM) 300 mg Oral TabletIndications :Elevated uric acid in blood TAKE ONE TABLET BY MOUTH ONCE A DAY 100 Tablet 2 025 Active minoxidiL (LONITEN) 2.5 mg Oral TabletIndications :Hair loss TAKE ONE TABLET BY MOUTH ONCE A DAY 30 Tablet 5 025 Active flecainide (TAMBOCOR) 50 mg Oral Tablet TAKE ONE TABLET BY MOUTH 2 TIMES A DAY 60 Tablet 5 025 Active hydroCHLOROthiazi de 25 mg Oral TabletIndications :Peripheral edema TAKE 1 TABLET BY MOUTH EVERY DAY 30 Tablet 4 025 Active ergocalciferol (DRISDOL) 1,250 mcg (50,000 unit) Oral Capsule TAKE 1 CAPSULE BY MOUTH ONE TIME PER WEEK 4 Capsule 5 025 Active topiramate (TOPAMAX) 50 mg Oral Tablet TAKE 1 TABLET BY MOUTH TWICE DAILY 60 Tablet 2 025 Active bempedoic acid-ezetimibe (NEXLIZET) 180-10 mg Oral TabletIndications :Type 2 diabetes mellitus with hyperlipidemia (HCC),Dyslipidemi a,ASHD (arteriosclerotic heart disease) Take 1 Tablet by mouth daily. 90 Tablet 3 025 Active traZODone (DESYREL) 50 mg Oral TabletIndications :Insomnia, persistent TAKE ONE TABLET BY MOUTH EVERY NIGHT 30 Tablet 2 025 Active metoprolol (LOPRESSOR) 50 mg Oral Tablet TAKE ONE TABLET BY MOUTH 2 TIMES A DAY 200 Tablet 2 08/19/2 025 Active ezetimibe (ZETIA) 10 mg Oral TabletIndications :Type 2 diabetes mellitus with hyperlipidemia (HCC),Statin myopathy TAKE ONE TABLET BY MOUTH ONCE A DAY 90 Tablet 3 025 Active metoprolol (LOPRESSOR) 50 mg Oral Tablet TAKE ONE TABLET BY MOUTH 2 TIMES A DAY 180 Tablet 5 024 2024 Discontinued traZODone (DESYREL) 50 mg Oral TabletIndications :Insomnia, persistent TAKE ONE TABLET BY MOUTH EVERY NIGHT 30 Tablet 5 025 2024 Discontinued azithromycin (ZITHROMAX) 250 mg Oral TabletIndications :Rhinosinusitis Take 2 tablets (500 mg) on Day 1, followed by 1 tablet (250 mg) once daily on Days 2 through 5. 6 Tablet 025 2024 nitrofurantoin, macrocrystal-mono hydrate, (MACROBID) 100 mg Oral CapsuleIndication s:Dysuria Take 1 Capsule by mouth 2 times daily for 7 days. 14 Capsule 025 2024 potassium chloride (KLOR-CON M) 20 mEq Oral Tab Sust.Rel. Particle/CrystalI ndications:[place] lemia Take 1 Tablet by mouth daily for 3 days. 3 Tablet 025 2024 Hospital, Clinic, or Other Facility Administered Medication Ordered Dose Route Frequency Start Date End Date Status methylPREDNISolone acetate (DEPO-Medrol) injection 80 mgIndications:Rhinosinusiti s 80 mg IM ONCE 11/11/2024 11/11/2024 Ended betamethasone acet-betamethasone sodium phos (CELESTONE) injection 6 mgIndications:Rhinosinusiti s 6 mg IM ONCE 11/11/2024 11/11/2024 Ended Active Problems Problem Noted Date Diagnosed Date Mixed stress and urge incontinence 08/11/2024 Vitamin D deficiency 10/24/2023 Overview (10/24/2023): On replacement. Assessment & Plan (11/20/2024 11:08 AM EDT): On replacement Orders: VITAMIN D 25 HYDROXY; Future Sacroiliitis 10/24/2023 Overview (10/24/2023): Managed by Dr. [...] Total Score 0 0 Statin myopathy 11/07/2022 Assessment & Plan (11/20/2024 11:08 AM EDT): Orders: LIPID PANEL REFLEX; Future Elevated uric acid in blood 10/25/2022 Overview (03/21/2023): On allopurinol Assessment & Plan (11/20/2024 11:08 AM EDT): On allopurinol Orders: URIC ACID; Future Assessment & Plan (05/07/2024 1:17 PM EST): On allopurinol, no recent gout Orders: URIC ACID; Future Paroxysmal atrial fibrillation 10/25/2022 Assessment & Plan (11/20/2024 11:08 AM EDT): Previously followed by cardiology. On rate control No indication for AC at this time Has lost 100lb RADHA (obstructive sleep apnea) 10/25/2022 Type 2 diabetes mellitus with hyperlipidemia 02/2023 Overview (12/24/2023): Lab Results Component Value Date HGBA1C 6.1 (H) 10/24/2023 HGBA1C 6.3 (H) 06/21/2023 HGBA1C 6.9 (H) 03/21/2023 Metformin intolerance. on farxiga for dual mgmt of CKD and ozempic. Statin intolerance. On zetia ACEi/ARB held d/t CKD Assessment & Plan (11/20/2024 11:08 AM EDT): Goal A1C: < 6.5 and TIR >70% [...] HEMOGLOBIN A1C; Future MICROALBUMIN/CREATININE RATIO URINE; Future Assessment & Plan (05/07/2024 1:17 PM EST): [...] with statin On zetia Assessment & Plan (11/20/2024 11:08 AM EDT): Statin intolerance Orders: LIPID PANEL REFLEX; Future Assessment & Plan (05/07/2024 1:17 PM EST): [...] Purines in diet too. Assessment & Plan (11/20/2024 11:08 AM EDT): Preventing CKD Progression: 1.Tight control of BP, [...] Percocet QID, voltaren BID Assessment & Plan (11/20/2024 11:08 AM EDT): Having acute on chronic mid to right thoracic pain. Sees pain mgmt at [facility] Will get outpt xray and have her keep followup apt with Dr. Zelaya to discuss Orders: XR THORACIC SPINE AP AND LATERAL; Future Assessment & Plan (07/14/2024 8:47 AM EDT): [...] Sig improvement on ozempic. Assessment & Plan (11/20/2024 11:08 AM EDT): 100lb weight loss over the past 18 mos with diet, exercise and GLP Doing well Continue same Orders: VITAMIN B12/ FOLIC ACID; Future Assessment & Plan (07/14/2024 8:47 AM EDT): - need for calorie deficit for continued weight loss. Recommend increasing exercise - encouraged nonweight bearing exercises d/t arthritis and/or walking. Assessment & Plan (05/07/2024 1:17 PM EST): Wt Readings from Last 3 Encounters: 01/23/25 224 lb (101.6 kg) 03/24/24 218 lb [...] Encounters Date Type Department Care Team Description 12/03/2024 Refill SEP [address] [place] [phone] Juana Bailey APRN Medication Refill 11/30/2024 Refill [facility]P [place] [address] [place] [phone] Juana Bailey APRN Medication Refill 11/27/2024 Telephone SEP [place] [address] [place] [phone] Juana Bailey APRN Relaying Information (Pt. Has a question about a medication that she is supposed to stop taking for a few weeks and is confused on which medication that it is. /Please call Pt. To clarify. /) 11/24/2024 Results Follow-Up [address] [place] [phone] Juana Bailey APRN MICROALBUMIN/CREATININ E RATIO URINE, URINE CULTURE (NO STAIN), CBC WITH DIFF, Additional followed-up results: 7 11/23/[address] [place] [phone] Juana Bailey APRN Results (Labs) 11/20/2024 10:15 AM EDT Office Visit [address] [place] [phone] Juana Bailey APRN Annual physical exam (Primary Dx); Vitamin D deficiency; Type 2 diabetes mellitus with hyperlipidemia (HCC); Statin myopathy; Stage 3b chronic kidney disease (HCC); Paroxysmal atrial fibrillation (HCC); Elevated uric acid in blood; Dyslipidemia; Obesity, Class I, BMI 30-34.9; Screening for thyroid disorder; Chronic midline thoracic back pain; Dysuria 11/11/2024 10:15 AM EDT Office Visit [address] [place] [phone] Juana Bailey APRN Rhinosinusitis (Primary Dx) 11/04/2024 2:07 PM EDT Anesthesia Event [facility] [address] [place] [address] Zeb Tamayo CRNA Salyer, Corey L, APRN 11/04/2024 11:58 AM EDT - 11/04/2024 11:59 PM EDT Hospital Encounter [facility] [address] [place] [address] Nitin Morgan MD Ansari, Camron R, CRNA Screening for colon cancer Discharge Disposition: Home or Self Care 11/04/2024 Travel 11/01/[address] [place] [phone] Juana Bailey APRN Medication Refill 09/30/[address] [place] [phone] [place], Juana, GROCERY BUYER Other (Asking to speak with Juana Bailey APRN ) 09/28/2024 11:59 PM EDT Anesthesia Event [facility] [address], [address] [place] [address] Srinivas Liao APRN 09/28/2024 Telephone [facility] [address], [address] [place] [address] Nitin Morgan MD Reschedule 09/16/2024 2:30 PM EDT Office Visit [address] [place] [phone] [place], Juana, GROCERY BUYER Tick bite, unspecified site, initial encounter (Primary Dx) 09/09/[address] [place] [phone] [place], Juana, GROCERY BUYER Other (tick bite) 09/08/2024 Results Follow-Up [address] [place] [phone] [place], Juana, GROCERY BUYER MM MAMMO DIGITAL MARCO SCREEN BILAT from Last 3 Months Immunizations Immunization Administration [...] Date Recorded PHQ-2 Total Score 0 11/20/2024 [facility] Occupational Stress Questionnaire Answer Date [...] Mass Index 33.78 11/20/2024 10:09 AM EDT Plan of Treatment Upcoming Encounters Date Type Department Care Team (Late st Contact Info) Description 12/11/2024 10:00 AM EDT Clinical Support [facility] [address] [place] [phone] Health Maintenance Due Date Last Done Comments DTaP/TDaP/Td (1 - Tdap) 07/03/1987 Hepatitis B Vaccine (1 of 3 - 19+ 3-dose series) 07/03/1987 FIT 2013 Sigmoidoscopy 2013 Virtual Colonography 2013 Zoster (1 of 2) 2018 COVID-19 Vaccine (1 - season) 2023 Pneumococcal Vaccine 50+ (1 of 2 - PCV) 12/04/2024 Postponed from 07/03/1987 (Insurance/Financial) Influenza Vaccine (#1) 2024 9, 01/13/2015, 01/16/2012 Cologuard 04/16/2025 04/16/2022 Hemoglobin A1c 05/23/2025 11/20/2024, 04/16, 03/19/2024, Additional history exists Annual Wellness Exam 11/20/2025 11/20/2024 Kidney Health: eGFR 11/20/2025 11/20/2024, 05/07/2024, 10/24/2023, Additional history exists Kidney Health: uACR 11/20/2025 11/20/2024, 10/24/2023, 10/24/2023 Lipids 11/20/2025 11/20/2024, 04/16, 10/24/2023, Additional history exists Diabetic Eye Exam [...] 33.9(11/21/19 10:09 AM EDT) No Juana Bailey, GROCERY BUYER Stay Tobacco Free Lifestyle No Juana Bailey GROCERY BUYER HEMOGLOBIN A1C < 7.0 Result Component 5.9( 10:54 AM EDT) No Juana Bailey APRN Procedures Procedure Name Priority Date/Time Associated Diagnosis Comments URIC ACID Routine 11/20/2024 10:54 AM EDT Elevated uric acid in blood VITAMIN D 25 HYDROXY Routine 11/20/2024 10:54 AM EDT Vitamin D deficiency VITAMIN B12/ FOLIC ACID Routine 11/20/2024 10:54 AM EDT Obesity, Class I, BMI 30-34.9 TSH REFLEX TO FT4 Routine 11/20/2024 10: 54 AM EDT Screening for thyroid disorder LIPID PANEL REFLEX Routine 11/20/2024 10 :54 AM EDT Statin myopathy Dyslipidemia HEMOGLOBIN A1C Routine 11/20/2024 10:54 AM EDT Type 2 diabetes mellitus with hyperlipidemia (HCC) COMPREHENSIVE METABOLIC PANEL Routine 11/20/2024 10:54 AM EDT Annual physical exam CBC WITH DIFF Routine 11/20/2024 10:54 AM EDT Annual physical exam MICROALBUMIN/CREATINI NE RATIO URINE Routine 11/20/2024 10:38 AM EDT Type 2 diabetes mellitus with hyperlipidemia (HCC) URINE CULTURE (NO STAIN) Routine 11/20/2024 10:38 AM EDT Dysuria SEP URINALYSIS POC Routine 11/20/2024 10 :35 AM EDT Dysuria COLONOSCOPY Routine 11/04/2024 2:28 PM EDT Screening [...] Encounter for screening 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 cancer 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 CYTOLOGY REQUEST (PAP ONLY) Routine 05/22/2023 9:58 AM EST Cervical cancer screening Screening for STDs (sexually transmitted diseases) DIABETES EYE EXAM Routine 02/20/2022 8:43 AM EST from Last 3 Months or Most Recently Relevant to Health Maintenance Results * (ABNORMAL) LIPID PANEL REFLEX (11/20/2024 10:54 AM EDT) Cholesterol 219(H) <200 mg/dL 11/20/2024 3:56 PM EDT [facility] Comment: < 200 Desirable 200 - 239 Borderline High >= 240 High Triglyceride 184(H) <150 mg/dL 11/20/2024 3:56 PM EDT [facility] Comment: < 150 Normal 150 - 199 Borderline High 200 - 499 High >= 500 Very High HDL 54 >=40 mg/dL 11/20/2024 3:56 PM EDT [employer] [facility] Comment: > 60 Optimal 40 - 60 Acceptable < 40 Low LDL Calculated 132(H) <100 mg/dL 11/20/2024 3:56 PM EDT [employer] [facility] Comment: < 100 Optimal 100 - 129 Near or above optimal 130 - 159 Borderline High 160 - 189 High >= 190 Very High The National Institutes of Health (NIH) equation is used for all lipid panels that report calculated LDL (LDL-C). Non-HDL-C Calculated 165(H) <=129 mg/dL 11/20/2024 3:56 PM EDT [facility] [employer] [facility] Comment: <130 Desirable 130-159 Above Desirable 160-189 Borderline High 190-219 High >= 220 Very High Fasting Specimen? Yes None 025 3:56 PM EDT [employer] [facility] Blood VENOUS BLOOD / Unknown Venipuncture / Unknown 11/20/2024 10:54 AM EDT 11/20/2024 10:54 AM EDT us Juana Bailey GROCERY BUYER CHEMISTRY ORDERABLES Final Result [facility] [address] [place] [address] * (ABNORMAL) VITAMIN B12/ FOLIC ACID (11/20/2024 10:54 AM EDT) Vitamin B12 1,375(H) 232 - 1,245 pg/mL 11/20/2024 4:[address] [facility] Folate >16.00 >=4.80 ng/mL 11/20/2024 4:[address] [facility] Blood VENOUS BLOOD / Unknown Venipuncture / Unknown 11/20/2024 10:54 AM EDT 11/20/2024 10:[address] [facility] - 11/20/2024 4:50 PM EDT Ingestion of omar doses of biotin (>5 mg/day) taken within 8 hours of drawing blood sample can interfere with this immunoassay test. [facility] CHEMISTRY ORDERABLES Final Result Performing Organization Address City/[facility]/ZIP Co de Phone Number [facility] [address] , [place] [address] * TSH REFLEX TO FT4 (11/20/2024 10:54 AM EDT) Pathologist [facility] TSH Reflex 1.690 0.270 - 4.200 mcIU/mL 11/20/2024 3:[address] [facility] Blood VENOUS BLOOD / Unknown Venipuncture / Unknown 11/20/2024 10:54 AM EDT 11/20/2024 10:[address] [facility] - 11/20/2024 3:56 PM EDT Ingestion of omar doses of biotin (>5 mg/day) taken within 8 hours of drawing blood sample can interfere with this immunoassay test. [facility] CHEMISTRY ORDERABLES Final Result Performing Organization Address City/[facility]/ZIP Co de Phone Number [facility] [address] [facility] [place] [address] * VITAMIN D 25 HYDROXY (11/20/2024 10:54 AM EDT) Vit D 25 OH 74.6 30.0 - 150.0 ng/mL 11/20/2024 4:50 PM EDT [facility] Comment: Preferred: >= 30 ng/mL Insufficient: 21-29 ng/mL Deficient <= 20 ng/mL Possible Toxicity: >150 ng/mL Samples should not be taken from patients receiving therapy with high biotin doses (i.e. > 5 mg/day) until at least 8 hours following the last biotin administration. Blood VENOUS BLOOD / Unknown Venipuncture / Unknown 11/20/2024 10:54 AM EDT 11/20/2024 10:54 AM EDT Juana Bailey GROCERY BUYER CHEMISTRY ORDERABLES Final Result [facility] [address] [facility] , [place] [address] * CBC WITH DIFF (11/20/2024 10:54 AM EDT) Pathologist [facility] WBC 8.4 3.7 - 10.3 x10(3)/mcL 11/20/2024 [...] 11/20/2024 3:38 PM EDT [facility] Platelet 277 155 - 369 x10(3)/[facility] 11/20/2024 3:38 PM EDT [facility] MPV 11.4 8.8 - 12.5 fL 11/20/2024 3:38 PM EDT [facility] Neut Percent 58.5 % 11/20/2024 3:38 PM EDT [facility] Comment:Neutrophils equals s egs plus bands Imm Gran% 0.5 % 11/20/2024 3:38 PM EDT [facility] Comment:Automated count of m etamyelocytes, myelocytes and promyelocytes. Lymph Percent 29.9 % 11/20/2024 3:38 PM EDT [facility] Moody Percent 6.9 % 11/20/2024 3:38 PM EDT [facility] Eos Percent 3.5 % 11/20/2024 3:38 PM EDT [facility] Baso Percent 0.7 % 11/20/2024 3:38 PM EDT [facility] Neut # 4.9 1.6 - 6.1 x10(3)/[facility] 11/20/2024 3:38 PM EDT [facility] Comment:Neutrophils equals s egs plus bands IMMGRAN# 0.0 0.0 - 0.1 x10(3)/[facility] 11/20/2024 3:[address] [facility] Comment:Automated count of m etamyelocytes, myelocytes and promyelocytes. An absolute IG <0.1 is reported as 0.0. Lymph # 2.5 1.2 - 3.9 x10(3)/[facility] 11/20/2024 3:38 PM EDT [facility] Moody # 0.6 0.3 - 0.9 x10(3)/[facility] 11/20/2024 3:38 PM EDT [facility] Eos# 0.3 0.0 - 0.5 x10(3)/[facility] 11/20/2024 3:38 PM EDT [facility] Baso # 0.1 0.0 - 0.1 x10(3)/[facility] 11/20/2024 3:38 PM EDT [facility] Blood VENOUS BLOOD / Unknown Venipuncture / Unknown 11/20/2024 10:54 AM EDT 11/20/2024 10:54 AM EDT [facility] HEMATOLOGY ORDERABLES Final Result Performing Organization Address [facility] de Phone Number [facility] [employer] , [place] [address] * URIC ACID (11/20/2024 10:54 AM EDT) Pathologist [facility] Uric Acid 4.6 2.4 - 5.7 mg/dL 11/20/2024 3:56 PM EDT [facility] [employer], [facility] Blood VENOUS BLOOD / Unknown Venipuncture / Unknown 11/20/2024 10:54 AM EDT 11/20/2024 10:54 AM EDT [facility] [place] GROCERY BUYER CHEMISTRY ORDERABLES Final Result Performing Organization Address [facility] de Phone Number [facility] [address] [facility] , [place] [address] * (ABNORMAL) HEMOGLOBIN A1C (11/20/2024 10:54 AM EDT) [facility] Hgb A1C 5.9(H) 4.2 - 5.6 % 11/20/2024 4:[address] [facility] [place], [facility] Est. Avg Glucose 123 mg/dL 11/20/2024 4:[address] [facility] [place], [facility] Blood VENOUS BLOOD / Unknown Venipuncture / Unknown 11/20/2024 10:54 AM EDT 11/20/2024 10:[address] [facility] - 11/20/2024 4:02 PM EDT REFERENCE RANGE: Normal: 4.0-5.6% Pre-diabetes: 5.7-6.4% Provisional diagnosis of diabetes: >6.4% Hgb F>10% and anything which shortens red cell survival, such as hemolytic anemia, or unstable hemoglobin variants such as HbSS, HbSC, or HbCC, will lower the HbA1c value associated with a given level of glycemic control. Juana Arceulding GROCERY BUYER CHEMISTRY ORDERABLES Final Result [facility] [address] [facility] , [place] [address] * (ABNORMAL) COMPREHENSIVE METABOLIC PANEL (11/20/2024 10:54 AM EDT) Sodium 136 136 - 145 mmol/L 11/20/2024 3:56 PM EDT [facility] Potassium 3.1(L) 3.5 - 5.0 mmol/L 11/20/2024 3:56 PM EDT [facility] Chloride 97(L) 98 - 107 mmol/L 11/20/2024 3:56 PM EDT [facility] Total CO2 21(L) 22 - 29 mmol/L 11/20/2024 3:56 PM EDT [facility] Anion Gap 18(H) 7 - 16 mmol/L 11/20/2024 3:56 PM EDT [facility] Calcium 10.6(H) 8.6 - 10.4 mg/dL 11/20/2024 3:56 PM EDT [facility] Glucose Lvl 128(H) 70 - 99 mg/dL 11/20/2024 3:56 PM EDT [facility] BUN 19 6 - 20 mg/dL 11/20/2024 3:56 PM EDT [facility] Creatinine 0.77 0.51 - 1.30 mg/dL 11/20/2024 3:56 PM EDT [facility] Albumin 4.5 3.5 - 5.2 gm/dL 11/20/2024 3:56 PM EDT [facility] Total Protein 8.5(H) 6.4 - 8.3 gm/dL 11/20/2024 3:56 PM EDT [facility] Bili Total 0.8 0.2 - 1.3 mg/dL 11/20/2024 3:56 PM EDT [facility] ALT 28 <=41 U/L 11/20/2024 3:56 PM EDT [facility] AST 27 <=40 U/L 11/20/2024 3:56 PM EDT [facility], [facility] Alk Phos 129(H) 36 - 123 U/L 11/20/2024 3:[address] [facility], [facility] eGFR (CKD-EPIcr 2020) 90 >=60 mL/min/1.7 3 m2 11/20/2024 3:56 PM EDT [facility] Comment:Estimated GFR was ca lculated using the CKD-EPIcr (2020) equation refit without race. The equation is recommended by the National Kidney Foundation - [place] Society of Nephrology Task Force. Blood VENOUS BLOOD / Unknown Venipuncture / Unknown 11/20/2024 10:54 AM EDT 11/20/2024 10:54 AM EDT Juana [place] GROCERY BUYER CHEMISTRY ORDERABLES Final Result Performing Organization Address [facility] Co de Phone Number [address] , [place] [address] * MICROALBUMIN/CREATININE RATIO URINE (11/20/2024 10:38 AM EDT) Urine Microalb 68.9 mg/L 11/20/2024 4:[address] [facility] Urine Creatinine 284.0 mg/dL 11/20/2024 4:[address] [facility] Ur Microalb/Creat 24 0 - 30 mg/g 11/20/2024 4:46 PM EDT [facility] Urine STRUCTURE OF URINARY TRACT PROPER / Unknown 11/20/2024 10:38 AM EDT 11/20/2024 10:38 AM EDT Juana Lynn GROCERY BUYER URINE ORDERABLES Final Resu lt Performing Organization Address [facility]/ZIP Co de Phone Number [facility] [address] [facility] , [place] [address] * URINE CULTURE (NO STAIN) (11/20/2024 10:38 AM EDT) Culture Multiple bacterial species isolated from urine consistent with urogenital commensal organisms. 11/22/2024 7:02 AM EDT [employer] [facility] Urine STRUCTURE OF URINARY TRACT PROPER / Unknown 11/20/2024 10:38 AM EDT 11/20/2024 10:38 AM EDT us Juana Bailey GROCERY BUYER MICROBIOLOGY - GENERAL SURESH CALDERON Final Result [facility] [address] [facility] , [address] [place] [id number] * (ABNORMAL) SEP URINALYSIS POC (11/20/2024 10:35 AM EDT) UA Color POC Yellow Color 11/20/2024 10:38 AM EDT [facility] [place] UA Appear POC Clear Clear 11/20/2024 10:38 AM EDT [facility] [place] [facility]A Gluc POC Negative Negative mg/dL 11/20/2024 10:38 AM EDT [facility] [place] [facility]A Bili POC Small(A) Negative 11/20/2024 10:38 AM EDT [facility] [place] UA Ketones POC Negative Negative mg/dL 11/20/2024 10:38 AM EDT [facility] [place] UA SG POC >=1.030 1.001 - 1.035 no units 11/20/2024 10:38 AM EDT [facility] [place] [facility]A Blood POC Negative Negative 11/20/2024 10:38 AM EDT [facility] [place] [facility]A pH POC 6.0 5.0 - 8.0 pH 11/20/2024 10:38 AM EDT [facility] [place] [facility] Protein POC 30(A) Negative mg/dL 11/20/2024 10:38 AM EDT [facility] Urobilinogen POC 0.2 0.2, 1.0 11/20/2024 10:38 AM EDT [facility] Nitrite POC Negative Negative 11/20/2024 10:38 AM EDT [facility] Leuk Est POC Small(A) Negative 10:38 AM EDT [facility] Urine STRUCTURE OF URINARY TRACT PROPER / Unknown 11/20/2024 10:35 AM EDT 11/20/2024 10:38 AM EDT us Juana Bailey [employer] POINT OF CARE TEST ORDERABL ES Final Result [facility] [address] [place] [facility], BILL [id number] * COLONOSCOPY (11/04/2024 2:28 PM EDT) Anatomical [...] Staff Role Nitin Morgan MD Performing Provider Zeb Tamayo CRNA CUSTOMER ENERGY SPECIALIST Tabitha Alarcon RN Metrologist Bárbara Leyva RN Endoscopy Nurse Medications See [...] AIRWAY PLACEMENT (11/04/2024 2:12 PM EDT) Narrative [facility] - 11/04/2024 2:12 PM EDT Zeb Tamayo CRNA 11/04/2024 2:12 PM Intraop Airway Placement: Date/Time: 11/04/2024 2:12 PM Airway type: Nasal cannula salter us Zeb R Roni CUSTOMER ENERGY SPECIALIST HI ANESTHESIA Final Resul t Performing Organization Address City/[facility] Co de Phone Number [facility] [address] [place], [place] [id number] * GLUCOSE METER POC (11/04/2024 1:04 PM EDT) [facility] Glucose Meter POC 73 70 - 100 mg/dL 11/04/2024 1:05 PM EDT [facility] Sample Type Capillary 11/04/2024 1:05 PM EDT [facility] Patient Status Non-Critical Patient 11/04/2024 1:05 PM EDT [facility] Blood BLOOD SPECIMEN / Unknown 11/04/2024 1:04 PM EDT 11/04/2024 1:05 PM EDT Nitin Morgan MD POINT OF CARE TEST ORDERABLE S Final Result Performing Organization Address [facility] de Phone Number [facility] [address] [place] [address] * MM OUTSIDE FILMS FOR COMPARISON (09/08/2024 10:31 AM EDT) Only the most recent of4 resultswithin the time period is included. us Unknown Provider IMG MAMMOGRAPHY ORDERABLES Bindu l Result Performing Organization Address City/[facility]/ZIP Co de Phone Number PACS * MM MAMMO DIGITAL MARCO SCREEN BILAT (08/31/2024 11:36 AM EDT) Anatomical Region Laterality Modality Breast Bilateral Mammography 08/31/2024 11:3 6 AM EDT Impressions 09/08/2024 10:50 AM EDT Negative ([id number]) RECOMMENDATION: Routine Screening Mammogram in 1 Year Bilateral . . COMMENTS: DISCLAIMER *The patient was notified by MyChart or mail of the results for this examination. *The patient's information was entered into a reminder system with a target due date for the next breast imaging, in accordance with the [employer] and the Society of [...] for screening mammogram for malignant neoplasm of [id number] COMPARISON STUDIES: Outside films from [facility] dated 09/26/2020. TISSUE DENSITY: There are scattered areas of fibroglandular density. FINDINGS: No mammographic evidence of malignancy. Procedure Note Allie Higginbotham MD - 09/08/2024 EXAM: MM MAMMO DIGITAL MARCO SCREEN BILAT EXAM DATE: 08/31/2024 11:36 AM INDICATION: Z12.31-Encounter for screening mammogram for malignantneoplasm of [id number] COMPARISON STUDIES: Outside films from [facility] dated09/26/2020. TISSUE DENSITY: There are scattered areas of fibroglandular density. FINDINGS: No mammographic evidence of malignancy. IMPRESSION: Negative ([id number]) RECOMMENDATION: Routine Screening Mammogram in 1 Year Bilateral . . COMMENTS: DISCLAIMER *The patient was notified by MyChart or mail of the results for this examination. *The patient's information was entered into a reminder system with atarget due date for the next breast imaging, in accordance with the [employer] and the Society of Breast Imaging recommendations. *Breast Imaging has a false negative rate of 15%. *Any patient with a palpable abnormality, unexplained by breast imaging,should be managed on a clinical basis by the attending physician. Juana Bailey APRN IM MAMMOGRAPHY ORDERABLES Final Result * 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 CYTOLOGY REQUEST (PAP ONLY) (05/22/2023 9:58 AM EST) CASE REPORT Gynecologic Cytology Report Case: [id number] Authorizing Provider: Juana Bailey APRN Collected: 05/22/202358 Ordering Location: [facility] Received: 05/22/202358 First Screen: Jose Douglas CT Specimen: LIQUID-BASED PAP - CERVICAL/ENDOCERV ICAL, Cervix, Endocervical 05/25/2023 1:17 PM EST [facility] PAP FINAL DIAGNOSIS Negative for intraepithelial lesion or malignancy 05/25/2023 1:17 PM EST [facility] at 1317 EST MICROSCOPIC DESCRIPTION Microscopic examination is performed and the findings corroborate the diagnosis. 05/25/2023 1:17 PM EST [facility] PAP SMEAR ADEQUACY Satisfactory for evaluation 05/25/2023 1:17 PM EST [facility] PAP ORGANISMS NOTED Shift in claus suggestive of bacterial vaginosis. 05/25/2023 1:17 PM EST [facility] ENDOCERVICAL T-ZONE Transformation Zone Absent. This is not unusual in a post-menopausal woman. 05/25/2023 1:17 PM EST [facility] EMBEDDED IMAGES 1:17 PM EST [facility] PAP DISCLAIMER The Pap Smear is a screening test that aids in the detection of cervical cancer and cancer precursors. Both false positive and false negative results can occur. The test should be used at regular intervals, and positive results should be confirmed before definitive therapy. Processed using the ThinPrep Childcare Worker Automated cytology screening device ([employer]). 05/25/2023 1:17 PM EST [facility] Thin Prep ENDOCERVICAL STRUCTURE / Unknown 05/22/2023 9:58 AM EST 05/22/2023 9:58 AM EST Juana Bailey GROCERY BUYER CYTOLOGY ORDERABLES Final R esult [facility] [address] [address] * DIABETES EYE EXAM (02/20/2022 8:43 AM EST) Left Diabetic Retinopathy Not Present Present/Not Present SEP OFFICE Right Diabetic Retinopathy Not Present Present/Not Present SEP OFFICE Historical Provider Generic HEALTH MAINTENANCE E dited Result - Final SEP OFFICE from Last 3 Months or Most Recently Relevant to Health Maintenance Insurance BILL [place] [id number] [facility] [employer] [facility] [place] [address] B[place] [id number] [facility] [place] Care Teams Manager Consumer Relationship Specialty Start Date End Date Juana Bailey APRN [address] [place] [address] PCP - General Nurse Practitioner-Family 08/29/22
--- OUTSIDE RECORDS SUMMARY | 2024-12-07 11:20 | XMS_ITS | Encounter Summary ---
Author Organization [place] [address] Care Team Providers Care Industrial Spray Painter Name Role Phone Juana Bailey APRN Primary Care Provider [phone]- [phone] Reason for Visit * Reason Comments Medication Refill Encounter Details Date Type Department Care Team (Late st Contact Info) Description 12/03/2024 Refill SEP Nait [address] [place] [id number] Juana Bailey APRN [address] [facility] [place] [address] Medication Refill Social History Tobacco Use Types Packs/Day Years Used Date Smoking Tobacco: Never Smokeless Tobacco: Current Snuff Alcohol Use Standard Drinks/Week Comments Not Currently 0 (1 standard drink = 0.6 oz pur e alcohol) Overall Financial Resource Strain ([facility]) Answe r Date Recorded How hard is it for you to pa y for the very basics like food, housing, medical care, and heating? Not very hard 03/05/2023 PHQ-2 Answer Date Recorded PHQ-2 Total Score 0 11/20/2024 [facility] of Occupat ional Health - Occupational Stress [...] MOUTH ONCE A DAY 90 Tablet 3 12/03/2024 documented in this encounter Plan of Treatment Upcoming Encounters Date Type Department Care Team (Late st Contact Info) Description 12/11/2024 10:00 AM EDT Clinical Support ASHE[place] [address] [place] [phone] documented as of this [...] myopathy Toxic myopathy documented in this encounter Care Teams Industrial Spray Painter Relationship Specialty Start Date End Date Juana Bailey APRN [address] [place] [place] [address] PCP - General Nurse Practitioner-Family 08/29/22 documented as of this encounter
--- OUTSIDE RECORDS SUMMARY | 2024-12-07 11:20 | XMS_ITS | Encounter Summary ---
Author Organization [place] [address] Care Team Providers Care Wildlife Biology Technician Name Role Phone Juana Bailey APRN Primary Care Provider [phone]- [phone] Encounter Details Date Type Department Care Team (Late st Contact Info) Description 11/24/2024 Results Follow-Up SEP Nati [address] [place] [phone] Juana Bailey APRN [address] [facility] [address] [place] [id number] MICROALBUMIN/CREATIN INE RATIO URINE, URINE CULTURE (NO STAIN), CBC WITH DIFF, Additional followed-up results: 7 Social History Tobacco Use Types Packs/Day Years [...] Date Recorded PHQ-2 Total Score 0 11/20/2024 [facility] of Occupat ional Health - Occupational Stress [...] Date Author No 11/20/2024 10:18 AM EDT Sarha Crowell CCMA documented in this encounter Ordered Prescriptions Prescription Sig Dispense Quantity Refills Last Filled Start Date End Date bempedoic acid-ezetimibe (NEXLIZET) 180-10 mg Oral TabletIndications:Ty pe 2 diabetes mellitus with hyperlipidemia (HCC),Dyslipidemia,A SHD (arteriosclerotic heart disease) Take 1 Tablet by mouth daily. 90 Tablet 3 11/24/2024 potassium chloride (KLOR-CON M) 20 mEq Oral Tab Sust.Rel. Particle/CrystalIndi cations:Hypokalemia Take 1 Tablet by mouth daily for 3 days. 3 Tablet 11/24/2024 documented in this encounter Plan of Treatment Upcoming Encounters Date Type Department Care Team (Late st Contact Info) Description 12/11/2024 10:00 AM EDT Clinical Support ASHELY [place] [address] [place] [address] Scheduled Orders Name Type Priority Associated Diagnoses Orde r Schedule BASIC METABOLIC PANEL Lab Routine Hypokalemia 1 Occurrences starting 11/24/2024 until 11/24/2025 documented as of this encounter Goals Goal [...] Bailey APRN Stay Tobacco Free Lifestyle No Lynn, Juana, SQUEAK RATTLE AND LEAK REPAIRER HEMOGLOBIN A1C < 7.0 Result Component 5.9( 10:54 AM EDT) No Juana Bailey APRN documented as of this encounter Visit Diagnoses Diagnosis Type 2 diabetes mellitus with hyperlipidemia (HCC)- Primary Dyslipidemia Other and unspecified hyperlipidemia ASHD (arteriosclerotic heart disease) Coronary atherosclerosis of unspecified type of vessel, salt river or graft Hypokalemia Hypopotassemia documented in this encounter Discontinued Medications Medication Sig Discontinue Reason Start Date End Da te dapagliflozin propanediol (FARXIGA) 10 mg Oral TabletIndications:Stage 3b chronic kidney disease (HCC),Type 2 diabetes mellitus with hyperlipidemia (HCC),ASHD (arteriosclerotic heart disease) TAKE ONE TABLET BY MOUTH ONCE A DAY Cost of medication 01/29/2024 11/24/2024 ezetimibe (ZETIA) 10 mg Oral TabletIndications:Type 2 diabetes mellitus with hyperlipidemia (HCC),Statin myopathy TAKE ONE TABLET BY MOUTH ONCE A DAY Dose adjustment 08/31/2024 11/24/2024 documented as of this encounter Care Teams Wildlife Biology Technician Relationship Specialty Start Date End Date Juana Bailey APRN [address] [place], [place] [address] PCP - General Nurse Practitioner-Family 08/29/22 documented as of this encounter
--- NOTE | 2024-12-07 11:21 | EXP.PAIN.SOA ---
[facility] Disclaimer: The information contained in this section may have been updated after the patient was seen, as this information can be updated by other users. 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) Family history of cancer Family history of diabetes mellitus type II Family history of myocardial infarction Social History Smoking Status: Former smoker tobacco type: smokeless tobacco second hand exposure: No alcohol intake: never substance use type: denies use current occupational status: other Travel in the last 8 weeks?: None household members: spouse housing: house current occupational exposures/hazards: No caffeine: Yes PM Subjective & Objective Subjective Subjective:: Patient is a pleasant 54-year-old female who presents today for medication refill and follow-up.She does state overall She has had a little bit pain in her hip but otherwise everything's about the same from her last visit. Patient is currently managed with Percocet 10 mg 5 times a day and gabapentin 400 mg at bedtime. She denies any side effects and is requesting refills. Today she rates her pain a 3 out of 10. She denies any new trauma or injury. her Evans has been reviewed and is appropriate. Review of Systems: General: No recent weight changes, no fever, no sleep disturbances Respiratory: No cough, no shortness of air, no recurring pulmonary infections Cardiovascular/peripheral vascular: No chest pain, no palpitations, no edema, no shortness of breath Gastrointestinal: No new onset incontinence, normal bowel movements reported Genitourinary: No new onset incontinence Musculoskeletal: Hip pain Psychiatric: [Normal mood/affect] Neurological: [Denies weakness in extremities], [denies balance issues] Pain at rest (0-10 scale): 3 Objective Objective:: Physical Exam: General: Alert and oriented x3, no acute distress, pleasant and cooperative Lungs: Respirations even and unlabored, symmetrical chest expansion Eyes: PERRL Musculoskeletal: Flexion and extension of lumbar [spine] somewhat guarded secondary to pain, [antalgic gait noted] Neurological: Speech clear, no gross sensory deficit Has patient had previous pain injection?: No Conservative treatment options previously tried: Home exercise plan Length of treatment: Longer than 12 weeks Meds Home Medications and Allergies Home Medications ?Medication ?Instructions ?Recorded ?Confirmed ?Type allopurinol 300 mg tablet 300 mg PO DAILY 01/28/24 12/07/24 History dapagliflozin propanediol 10 mg 10 mg PO DAILY 01/28/24 12/07/24 History tablet (Farxiga) ergocalciferol (vitamin D2) 1,250 1,250 mcg PO WEEKLY 01/28/24 12/07/24 History mcg (50,000 unit) capsule ezetimibe 10 mg tablet 10 mg PO DAILY 01/28/24 12/07/24 History flecainide 50 mg tablet 50 mg PO DAILY 01/28/24 12/07/24 History hydrochlorothiazide 25 mg tablet 25 mg PO DAILY 01/28/24 12/07/24 History loratadine 10 mg tablet 10 mg PO DAILY 01/28/24 12/07/24 History metoprolol tartrate 50 mg tablet 50 mg PO DAILY 01/28/24 12/07/24 History omeprazole 20 mg capsule,delayed 20 mg PO DAILY 01/28/24 12/07/24 History release trazodone 50 mg tablet 50 mg PO DAILY 01/28/24 12/07/24 History eryxhxleurldueq-espndazaszdkkie-MJ 5 ml PO Q6H PRN cold symptoms 7 06/18/24 12/07/24 Rx 2 mg-30 mg-10 mg/5 mL oral syrup days #118 mL ibuprofen 800 mg tablet 800 mg PO TID PRN pain 7 days #20 06/18/24 12/07/24 Rx tabs ondansetron 4 mg disintegrating 4 mg PO Q6H PRN nausea and 06/18/24 12/07/24 Rx tablet vomiting 5 days #20 tabs gabapentin 300 mg capsule 300 mg PO DAILY #30 caps 08/17/24 12/07/24 Rx gabapentin 400 mg capsule 400 mg PO HS #30 caps 11/06/24 12/07/24 Rx oxycodone-acetaminophen 10 mg-325 1 tab PO 5XDAY #150 tabs 11/06/24 12/07/24 Rx mg tablet New Prescriptions to Start Prescriptions: Allergies Allergy/AdvReac Type Severity Reaction Status Date / Time No Known Allergies Allergy Verified 05/22/24 14:20 Assessment and Plan *Assessment and plan (1) Degenerative disc disease, lumbar: Status: Acute Category: Medical Code(s): M51.369 - Other intervertebral disc degeneration, lumbar region without mention of lumbar back pain or lower extremity pain Plan I will refill her Percocet and gabapentin and provide a 1 month supply of this medication. Patient will return to clinic in 1 month. Risks and benefits of the medication have been explained in detail to the patient. The patient does understand the risk of dependence on the medication when given over a prolonged period. Patient has been advised of risks of oversedation with the prescribed medication. Narcan has been offered to the paitent in the event of oversedation. Patient has been advised that a family member should also be educated regarding administration of Narcan. The patient has been advised to consult with his/her primary care provider and pharmacist regarding drug-drug interaction of medications currently prescribed. Patient has been prescribed a controlled substance after being counseled on the medication, medication safety, and possible side effects. Opioid contract was reviewed and signed by the patient, and that they have agreed to all of the terms set forth by our compliance program. A UDS is needed to verify patient's compliance with our office pain contract. This is ordered based off specific treatments related to chronic pain with the potential to abuse certain medications. Patient has been instructed to contact the clinic with any concerns before the next appointment. Dr. Zelaya has reviewed this note and agrees with this plan of care. This note was dictated using voice recognition software and make contain errors or omissions.
--- NOTE | 2024-12-07 11:34 | XR_ITS ---
FINAL REPORT CLINICAL HISTORY: 1 MONTH FOLLOW UP hx of spinal surg COMPARISON: None FINDINGS: AP, lateral, and swimmer's views of the thoracic spine were obtained. There is no prior exam for comparison. There are changes from posterior fusion at the T9-10 level. The hardware appears intact. There is no acute fracture or malalignment. Multilevel degenerative disc disease is present. Vertebral body height is preserved. Paraspinal soft tissues are within normal limits. IMPRESSION: Prior posterior fusion at the T9-10 level, with intact hardware. Multilevel degenerative disc disease without acute bony abnormality. Reviewed, Interpreted and Dictated by Poornima [place] MD Transcribed by Michelle Mcgee Authenticated and [facility]
== END 2024-12-07 23:59 | disposition home or self-care (01) ==
PROVIDERS: PCP Nurse Practitioner; Visit Provider Nurse Practitioner Family
DX: M51.361 Other intervertebral disc degeneration, lumbar region with lower extremity pain only (principal); Z79.891 Long term (current) use of opiate analgesic
CPT/HCPCS: 72072; 99212; G0463

== ENCOUNTER 2025-01-28 18:00 | Emergency (ER) | payer OTHER, SELFPAY ==
--- OUTSIDE RECORDS SUMMARY | 2024-12-11 10:00 | XMS_ITS | Encounter Summary ---
Author Organization [place] [address] Care Team Providers Care Pin Feather Machine Operator Name Role Phone LynnJuana lemon ZAHRA Primary Care Provider [phone] Reason for Visit * Reason Comments Labs Only Encounter Details Date Type Department Care Team (Late st Contact Info) Description 12/11/2024 10:00 AM EDT Clinical Support ASHELY [place] [address] [place] [phone] Tito Pal MA Hypokalemia Social History Tobacco Use Types Packs/Day Years Used Date Smoking Tobacco: Never Smokeless Tobacco: Current Snuff Alcohol Use Standard Drinks/Week Comments Not Currently 0 (1 standard drink = 0.6 oz pur e alcohol) Overall Financial Resource Strain ([facility]) Answe r Date Recorded How hard is it for you to pa y for the very basics like food, housing, medical care, and heating? Not very hard 03/05/2023 PHQ-2 Answer Date Recorded PHQ-2 Total Score 0 11/20/2024 [facility] of Occupat ional Health - Occupational Stress [...] Sarah Crowell CCMA documented in this encounter Plan of Treatment Not on file documented as of this encounter Goals Goal Patient Goal Type Associated Problems Recent Progress Patient-Stated? Author Blood Pressure < 140/90 Blood Pressure 104/67(2024 4:04 PM EDT) No LynnJuana GRADE CHECKER Maintain a healthy diet, exercise regularly and maintain an ideal body weight General No Noelle Yeh RMA BMI (Calculated) < 30 General 34.5(01/02/20 4:04 PM EDT) No WallacetonArnoldoJuana, GRADE CHECKER Stay Tobacco Free Lifestyle No LynnJuana GRADE CHECKER HEMOGLOBIN A1C < 7.0 Result Component 5.9( 10:54 AM EDT) No LynnJuana GRADE CHECKER documented as of this encounter Procedures Procedure Name Priority Date/Time Associated Diagnosis Comments BASIC METABOLIC PANEL Routine 12/11/2024 10:15 AM EDT Hypokalemia documented in this encounter Results * BASIC METABOLIC PANEL (12/11/2024 10:15 AM EDT) Sodium 139 136 - 145 mmol/L 12/11/2024 4:32 PM EDT [facility] Potassium 3.7 3.5 - 5.0 mmol/L 12/11/2024 4:32 PM EDT [facility] Chloride 104 98 - 107 mmol/L 12/11/2024 4:32 PM EDT [facility] Total CO2 22 22 - 29 mmol/L 12/11/2024 4:32 PM EDT [facility] Anion Gap 13 7 - 16 mmol/L 12/11/2024 4:32 PM EDT [facility] Calcium 9.7 8.6 - 10.4 mg/dL 12/11/2024 4:32 PM EDT [facility] Glucose Lvl 86 70 - 99 mg/dL 12/11/2024 4:32 PM EDT [facility] BUN 16 6 - 20 mg/dL 12/11/2024 4:32 PM EDT [facility] Creatinine 0.73 0.51 - 1.30 mg/dL 12/11/2024 4:32 PM EDT [facility] eGFR (CKD-EPIcr 2020) 96 >=60 mL/min/1.7 3 m2 12/11/2024 4:32 PM EDT [facility] Comment:Estimated GFR was ca lculated using the CKD-EPIcr (2020) equation refit without race. The equation is recommended by the National Kidney Foundation - [place] [employer] of Nephrology Task Force. Blood VENOUS BLOOD / Unknown Venipuncture / Unknown 12/11/2024 10:15 AM EDT 12/11/2024 10:15 AM EDT us Juana Bailey APRN CHEMISTRY ORDERABLES Final Result [facility] [address] [place] [address] documented in this encounter Visit Diagnoses Diagnosis Hypokalemia Hypopotassemia documented in this encounter Care Teams Pin Feather Machine Operator Relationship Specialty Start Date End Date Juana Bailey APRN [address] [place] [address] PCP - General Nurse Practitioner-Family 08/29/22 documented as of this encounter
--- OUTSIDE RECORDS SUMMARY | 2025-01-01 16:00 | XMS_ITS | Encounter Summary ---
Author Organization [facility] [place] [address] Care Team Providers Care Account Receivable Clerk Name Role Phone Arnoldo Baileyika ZAHRA Primary Care Provider [phone] Reason for Visit * Reason Comments Tailbone Pain Was in an accident a while ago and starting having pain again in her tailbone and hip Encounter Details Date Type Department Care Team (Late Contact Info) Description 01/01/2025 4:00 PM EDT Office Visit [facility] [address] [place] [phone] Sarah Gomez [address] [employer]INEER [address] [place], [place] [id number] Acute coccygeal pain (Primary Dx) Social History Tobacco Use Types [...] Date Recorded PHQ-2 Total Score 0 11/20/2024 [facility] [place] of Occupat ional Health [...] Sign Reading Time Taken Comments Blood Pressure 104/67 01/01/2025 4:04 PM EDT Pulse 74 01/01/2025 4:04 PM EDT Temperature 36.3 C (97.4 F) 01/01/2025 4:04 PM EDT Respiratory Rate 20 01/01/2025 4:04 PM EDT Oxygen Saturation 97% 01/01/2025 4:04 PM EDT Inhaled Oxygen Concentration - - Weight 93.9 kg (207 lb) 01/01/2025 4:04 PM EDT Height 165.1 cm (5' 5 ) 01/01/2025 4:04 PM EDT Body Mass Index 34.45 01/01/2025 4:04 PM EDT documented in this encounter Functional [...] No 11/20/2024 10:18 AM Sarah Polanco CCMA documented as of this encounter Mental Status * Because of a physical, mental or emotional condition, does this person have serious difficulty concentrating, remembering or making decisions? Answer Entry Date Author No 11/20/2024 10:18 AM Sarah Polanco CCMA documented in this encounter Ordered Prescriptions Prescription Sig Dispense Quantity Refills Last Filled Start Date End Date predniSONE (DELTASONE) 20 mg Oral TabletIndications: Acute coccygeal pain Take 1 Tablet by mouth 2 times daily for 5 days. 10 Tablet 01/01/2025 01/04/2025 predniSONE (DELTASONE) 20 mg Oral TabletIndications: Acute coccygeal pain Take 1 Tablet by mouth 2 times daily for 5 days. 10 Tablet 01/01/2025 01/01/2025 documented in this encounter Progress Notes * Sarah Gomez APRN - 01/01/2025 4:00 PM EDT Assessment & Plan Acute coccygeal pain prednisone 20mg BID x 5 days. f/u for continued or worsening pain. Progress Note: Vitals: 01/01/25 1604 BP: 104/67 Pulse: 74 Resp: 20 Temp: 97.4 ??F (36.3 ??C) TempSrc: Temporal SpO2: 97% Weight: 207 lb (93.9 kg) Height: 5' 5 (1.651 m) Body mass index is 34.45 kg/m??. SUBJECTIVE: Chief Complaint Patient presents with Tailbone Pain Was in an accident a while ago and starting having pain again in her tailbone and hip HPI: c/o acute worsening of tailbone pain recently, reports chronic since an accident. denies new injury/trauma. Review of Systems Constitutional: Positive for activity change. Negative for fever. Respiratory: Negative. Cardiovascular: Negative. Gastrointestinal: Negative. Musculoskeletal: See HPI Skin: Negative. Neurological: Negative for light-headedness and headaches. Psychiatric/Behavioral: Negative for sleep disturbance and suicidal ideas. OBJECTIVE: Physical Exam Vitals reviewed. Constitutional: General: She is not in acute distress. HENT: Nose: Nose normal. Mouth/Throat: Mouth: Mucous membranes are moist. Eyes: Conjunctiva/sclera: Conjunctivae normal. Cardiovascular: Rate and Rhythm: Normal rate and regular rhythm. Heart sounds: Normal heart sounds. Pulmonary: Effort: Pulmonary effort is normal. Breath sounds: Normal breath sounds. Musculoskeletal: Cervical back: Neck supple. Lumbar back: Normal. Skin: General: Skin is warm and dry. Neurological: Mental Status: She is alert and oriented to person, place, and time. Psychiatric: Mood and Affect: Mood normal. Thought Content: Thought content normal. documented in this encounter Plan of Treatment Not on file documented as of this encounter Goals Goal Patient Goal Type Associated Problems Recent Progress Patient-Stated? Author Blood Pressure < 140/90 Blood Pressure 104/67(2024 4:04 PM EDT) No Juana Bailey APRN Maintain a healthy diet, exercise regularly and maintain an ideal body weight General No Noelle Yeh RMA BMI (Calculated) < 30 General 34.5(01/02/20 4:04 PM EDT) No Juana Bailey APRN Stay Tobacco Free Lifestyle No Juana Bailey APRN HEMOGLOBIN A1C < 7.0 Result Component 5.9( 10:54 AM EDT) No Juana Bailey APRN documented as of this encounter Visit Diagnoses Diagnosis Acute coccygeal pain- Primary Other disorder of coccyx documented in this encounter Discontinued Medications Medication Sig Discontinue Reason Start Date End Da te predniSONE (DELTASONE) 20 mg Oral TabletIndications:Acute coccygeal pain Take 1 Tablet by mouth 2 times daily for 5 days. Reorder 01/01/2025 01/01/2025 documented as of this encounter Historical Medications * This list may reflect changes made after this encounter. gabapentin (NEURONTIN) 400 mg Oral Capsule Take 400 mg by mouth nightly. at bedtime 12/04/2024 added in this encounter Care Teams Account Receivable Clerk Relationship Specialty Start Date End Date Juana Bailey APRN [address] [place] [id number] PCP - General Nurse Practitioner-Family 08/29/22 documented as of this encounter
[2025-01-28 18:13] VITALS: BP 159/105; PULSE 88; RESP 18; TEMP 37.2; O2SAT 99; BMI 33.1
--- OUTSIDE RECORDS SUMMARY | 2025-01-28 18:20 | XMS_ITS | Encounter Summary ---
Author Organization [place] [address] Care Team Providers Care Immigration Judge Name Role Phone Juana Bailey APRN Primary Care Provider [phone] Reason for Visit * Reason Comments Medication Refill Encounter Details Date Type Department Care Team (Late st Contact Info) Description 01/19/2025 Refill [facility] [address] [place] [phone] Juana Bailey APRN [address] [facility] [place] [id number] Medication Refill Social History Tobacco Use Types [...] Date Recorded PHQ-2 Total Score 0 11/20/2024 [facility] [place] of Occupat ional Health - Occupational Stress [...] Date End Date hydroCHLOROthiazide 25 mg Oral TabletIndications:P eripheral edema TAKE 1 TABLET BY MOUTH ONCE A DAY 100 Tablet 2 01/21/2025 documented in this encounter Miscellaneous Notes * Telephone Encounter - Marni Santiago CPhT - 01/21/2025 9:42 AM EDT Hctz Future Visit: N/A Last Assessed Visit: 11/20/24(AWV or similar dx) Follow-Up Date: 11/20/25 All protocols passed. Refills approved and sent to requesting pharmacy. Routed to [facility] if an appointment is needed. documented in [...] as of this encounter Visit Diagnoses Diagnosis Peripheral edema Edema documented in this encounter Discontinued Medications Medication Sig Discontinue Reason Start Date End Da te hydroCHLOROthiazide 25 mg Oral TabletIndications:Periph eral edema TAKE 1 TABLET BY MOUTH EVERY DAY 08/11/2024 01/21/2025 documented as of this encounter Care Teams Immigration Judge Relationship Specialty Start Date End Date Juana Bailey APRN [address] [place] [address] PCP - General Nurse Practitioner-Family 08/29/22 documented as of this encounter
--- OUTSIDE RECORDS SUMMARY | 2025-01-28 18:20 | XMS_ITS | Data Portability ---
Author Organization [place] [facility] [facility] AD[facility] Address [address] [place] [id number] Assessment Encounter Date Assessment Date Assessment LastModified [...] Lab CBC w/ auto diff 2023 024 [place] [facility], [address], [address], [place], [address], 4 20:36:40 CMP, serum or plasma 2023 024 [place] [facility], [address], [address], [place], [address], 4 20:36:41 HbA1c (hemoglobin A1c), blood 2023 024 [place] [facility], [address], [address], [place], [address], 4 20:36:44 iron + TIBC + ferritin, serum 2023 024 [place] [facility], [address], [address], [place], [address], 4 20:36:38 vitamin D, 25-hydroxy, total, serum 2023 024 [place] [facility], [address], [address], [place], [address], 4 20:36:46 vitamin A (retinol), serum 2023 024 [place] [facility], [address], [address], [place], [address], 4 20:36:45 vitamin E, serum 2023 024 [place] [facility], [address], [address], [place], [address], 4 20:36:43 PTH (parathyroi d hormone), intact, serum or plasma 2023 024 [place] [facility], [address], [address], [place], [address], 4 20:36:49 lipid panel, serum 2023 024 [place] [facility], [address], [address], [place], [address], 4 20:36:42 TSH + free T4, serum 2023 024 [place] [facility], [address], [address], [place], [address], 4 20:36:39 folate, serum 2023 024 [place] [facility], [address], [address], [place], [address], 4 20:36:45 methylmalon ate, QN, serum or plasma 2023 024 [place] [facility], [address], [address], [place], [address], 4 20:36:48 thiamine, QN, blood 2023 024 [place] [facility], [address], [address], [place], [address], 4 20:36:47 Referral None recorded. Procedures None recorded. Surgeries esophagogas troduodenos copy (SURG) 2023 024 [email or web address] Fran Dailey MD, [address], [address], [place], [address], 4 10:59:39 Imaging electrocard iogram 2023 024 [email or web address] [facility], [address], [place], [address], 4 16:04:28 XR, chest, 2 view 2023 024 [facility], [address], [place], [address], 4 16:12:01 electrocard iogram, routine ECG, 12 leads min 2023 024 [facility], [address], [place], [address], 4 16:12:01 electrocard iogram 09/19/ 2023 09/19/2 023 [facility], [address], [place], [address], 3 07:52:38 Medication Orders Coreg 12.5 mg tablet 2022 024 [facility], [address], [id number], 4 15:10:44 Patient TargetsNo targets recorded. Patient InstructionsNo instructions recorded. Reason for Referral None Reported. Results Created Date Observation Date Name Description Value Unit Range Abnormal Flag Note LastModifiedBy Organization Detail LastModifiedTime 05/09/19 24 05/10/2023 FE+TI BC+FE R iron bind.cap.(TI BC) 315 ug/dL 250-45 0 Not Available [facility] ([facility]) [address] [place], [address], 05/15/2023 20:36:38 05/09/19 24 05/10/2023 FE+TI BC+FE R UIBC 233 ug/dL 131-42 5 Not Available [facility] ([facility]) [address] [place], [address], 05/15/2023 20:36:38 05/09/19 24 05/10/2023 FE+TI BC+FE R iron 82 ug/dL 27-159 Not Available [facility] ([facility]) [address] [place], [address], 05/15/2023 20:36:38 05/09/19 24 05/10/2023 FE+TI BC+FE R iron saturation 26 % 15-55 Not Available [facility] ([facility]) [address] [place], [address], 05/15/2023 20:36:38 05/09/19 24 05/10/2023 FE+TI BC+FE R ferritin 637 NG/mL 15-150 above high normal Not Available [facility] ([facility]) [address] [facility], [place], [address], 05/15/2023 20:36:38 05/09/19 24 05/10/2023 TSH+F REE T4 TSH 2.190 uIU/m L 0.450- 4.500 Not Available [facility] ([facility]) [address] [facility], [place], [address], 05/15/2023 20:36:39 05/09/19 24 05/10/2023 TSH+F REE T4 T4,free(dire ct) 1.45 NG/dL 0.82-1 .77 Not Available [facility] ([facility]) [address] [facility], [place], [address], 05/15/2023 20:36:39 05/09/19 24 05/10/2023 CBC WITH DIFFE RENTI AL/PL ATELE T WBC 10.3 x10e3 /uL 3.4-10 .8 Not Available [facility] ([facility]) [address] [place], [address], 05/15/2023 20:36:40 05/09/19 24 05/10/2023 CBC WITH DIFFE RENTI AL/PL ATELE T RBC 4.50 x10e6 /uL 3.77-5 .28 Not Available [facility] ([facility]) [address] [place], [address], 05/15/2023 20:36:40 05/09/19 24 05/10/2023 CBC WITH DIFFE RENTI AL/PL ATELE T hemoglobin 14.3 g/dL 11.1-1 5.9 Not Available [facility] ([facility]) [address] [place], [address], 05/15/2023 20:36:40 05/09/19 24 05/10/2023 CBC WITH DIFFE RENTI AL/PL ATELE T hematocrit 42.8 % 34.0-4 6.6 Not Available [facility] ([facility]) [address] [facility], [place], [address], 05/15/2023 20:36:40 05/09/19 24 05/10/2023 CBC WITH DIFFE RENTI AL/PL ATELE T MCV 95 fL 79-97 Not Available [facility] ([facility]) [address] [facility], [place], [address], 05/15/2023 20:36:40 05/09/19 24 05/10/2023 CBC WITH DIFFE RENTI AL/PL ATELE T MCH 31.8 pg 26.6-3 3.0 Not Available [facility] ([facility]) [address] [facility], [place], [address], 05/15/2023 20:36:40 05/09/19 24 05/10/2023 CBC WITH DIFFE RENTI AL/PL ATELE T MCHC 33.4 g/dL 31.5-3 5.7 Not Available [facility] ([facility]) [address] [facility], [place], [address], 05/15/2023 20:36:40 05/09/19 24 05/10/2023 CBC WITH DIFFE RENTI AL/PL ATELE T RDW 14.1 % 11.7-1 5.4 Not Available [facility] ([facility]) [address] [facility], [place], [address], 05/15/2023 20:36:40 05/09/19 24 05/10/2023 CBC WITH DIFFE RENTI AL/PL ATELE T platelets 239 x10e3 /uL 150-45 0 Not Available [facility] ([facility]) [address] [facility], [place], [address], 05/15/2023 20:36:40 05/09/19 24 05/10/2023 CBC WITH DIFFE RENTI AL/PL ATELE T neutrophils 64 % not estab. Not Available [facility] ([facility]) [address] [facility], [place], [address], 05/15/2023 20:36:40 05/09/19 24 05/10/2023 CBC WITH DIFFE RENTI AL/PL ATELE T lymphs 23 % not estab. Not Available [facility] ([facility]) [address] [facility], [place], [address], 05/15/2023 20:36:40 05/09/19 24 05/10/2023 CBC WITH DIFFE RENTI AL/PL ATELE T monocytes 8 % not estab. Not Available [facility] ([facility]) [address] [facility], [place], [address], 05/15/2023 20:36:40 05/09/19 24 05/10/2023 CBC WITH DIFFE RENTI AL/PL ATELE T eos 4 % not estab. Not Available [facility] ([facility]) [address] [facility], [place], [address], 05/15/2023 20:36:40 05/09/19 24 05/10/2023 CBC WITH DIFFE RENTI AL/PL ATELE T basos 1 % not estab. Not Available [facility] ([facility]) [address] [facility], [place], [address], 05/15/2023 20:36:40 05/09/19 24 05/10/2023 CBC WITH DIFFE RENTI AL/PL ATELE T immature cells MACHINE SKIVER Not Available [facility] ([facility]) [address] [facility], [place], [address], 05/15/2023 20:36:40 05/09/19 24 05/10/2023 CBC WITH DIFFE RENTI AL/PL ATELE T neutrophils (absolute) 6.7 x10e3 /uL 1.4-7. 0 Not Available [facility] ([facility]) [address] [place], [address], 05/15/2023 20:36:40 05/09/19 24 05/10/2023 CBC WITH DIFFE RENTI AL/PL ATELE T lymphs (absolute) 2.3 x10e3 /uL 0.7-3. 1 Not Available [facility] ([facility]) [address] [facility], [place], [address], 05/15/2023 20:36:40 05/09/19 24 05/10/2023 CBC WITH DIFFE RENTI AL/PL ATELE T monocytes(ab solute) 0.8 x10e3 /uL 0.1-0. 9 Not Available [facility] ([facility]) [address] [facility], [place], [address], 05/15/2023 20:36:40 05/09/19 24 05/10/2023 CBC WITH DIFFE RENTI AL/PL ATELE T eos (absolute) 0.4 x10e3 /uL 0.0-0. 4 Not Available [facility] ([facility]) [address] [facility], [place], [address], 05/15/2023 20:36:40 05/09/19 24 05/10/2023 CBC WITH DIFFE RENTI AL/PL ATELE T baso (absolute) 0.1 x10e3 /uL 0.0-0. 2 Not Available [facility] ([facility]) [address] [facility], [place], [address], 05/15/2023 20:36:40 05/09/19 24 05/10/2023 CBC WITH DIFFE RENTI AL/PL ATELE T immature granulocytes 0 % not estab. Not Available [facility] ([facility]) [address] [facility], [place], [address], 05/15/2023 20:36:40 05/09/19 24 05/10/2023 CBC WITH DIFFE RENTI AL/PL ATELE T immature grans (abs) 0.0 x10e3 /uL 0.0-0. 1 Not Available [facility] ([facility]) [address], [place], [address], 05/15/2023 20:36:40 05/09/19 24 05/10/2023 CBC WITH DIFFE RENTI AL/PL ATELE T NRBC MACHINE SKIVER Not Available [facility] ([facility]) [address], [place], [address], 05/15/2023 20:36:40 05/09/19 24 05/10/2023 CBC WITH DIFFE RENTI AL/PL ATELE T hematology comments: MACHINE SKIVER Not Available [facility] ([facility]) [address], [place], [address], 05/15/2023 20:36:40 05/09/19 24 05/10/2023 COMP. METAB OLIC PANEL (14) glucose 111 mg/dL 70-99 above high normal Not Available [facility] ([facility]) [address], [place], [address], 05/15/2023 20:36:41 05/09/19 24 05/10/2023 COMP. METAB OLIC PANEL (14) BUN 18 mg/dL 6-24 Not Available [facility] ([facility]) [address], [place], [address], 05/15/2023 20:36:41 05/09/19 24 05/10/2023 COMP. METAB OLIC PANEL (14) creatinine 1.02 mg/dL 0.57-1 .00 above high normal Not Available [facility] ([facility]) [address], [place], [address], 05/15/2023 20:36:41 05/09/19 24 05/10/2023 COMP. METAB OLIC PANEL (14) eGFR 65 mL/mi n/1.7 3 >59 Not Available [facility] ([facility]) [address], [place], [address], 05/15/2023 20:36:41 01/25/20 24 05/10/2023 COMP. METAB OLIC PANEL (14) BUN/creatini ne ratio 18 9-23 Not Available [facility] ([facility]) [address] [place], [address], 05/15/2023 20:36:41 05/09/19 24 05/10/2023 COMP. METAB OLIC PANEL (14) sodium 141 mmol/ L 134-14 4 Not Available [facility] ([facility]) [address] [facility], [place], [address], 05/15/2023 20:36:41 05/09/19 24 05/10/2023 COMP. METAB OLIC PANEL (14) potassium 3.4 mmol/ L 3.5-5. 2 below low normal Not Available [facility] ([facility]) [address] [facility], [place], [address], 05/15/2023 20:36:41 05/09/19 24 05/10/2023 COMP. METAB OLIC PANEL (14) chloride 96 mmol/ L 96-106 Not Available [facility] ([facility]) [address] [place], [address], 05/15/2023 20:36:41 05/09/19 24 05/10/2023 COMP. METAB OLIC PANEL (14) carbon dioxide, total 29 mmol/ L 20-29 Not Available [facility] ([facility]) [address] [place], [address], 05/15/2023 20:36:41 05/09/19 24 05/10/2023 COMP. METAB OLIC PANEL (14) calcium 10.6 mg/dL 8.7-10 .2 above high normal Not Available [facility] ([facility]) [address] [place], [address], 05/15/2023 20:36:41 05/09/19 24 05/10/2023 COMP. METAB OLIC PANEL (14) protein, total 7.6 g/dL 6.0-8. 5 Not Available [facility] ([facility]) [address] [place], [address], 05/15/2023 20:36:41 05/09/19 24 05/10/2023 COMP. METAB OLIC PANEL (14) albumin 4.4 g/dL 3.8-4. 9 Not Available [facility] ([facility]) [address] [place], [address], 05/15/2023 20:36:41 05/09/19 24 05/10/2023 COMP. METAB OLIC PANEL (14) globulin, total 3.2 g/dL 1.5-4. 5 Not Available [facility] ([facility]) [address], [place], [address], 05/15/2023 20:36:41 05/09/19 24 05/10/2023 COMP. METAB OLIC PANEL (14) A/G ratio 1.4 1.2-2. 2 Not Available [facility] ([facility]) [address] [place], [address], 05/15/2023 20:36:41 05/09/19 24 05/10/2023 COMP. METAB OLIC PANEL (14) bilirubin, total 0.6 mg/dL 0.0-1. 2 Not Available [facility] ([facility]) [address] [place], [address], 05/15/2023 20:36:41 05/09/19 24 05/10/2023 COMP. METAB OLIC PANEL (14) alkaline phosphatase 105 IU/L 44-121 Not Available [facility] ([facility]) [address] [place], [address], 05/15/2023 20:36:41 05/09/19 24 05/10/2023 COMP. METAB OLIC PANEL (14) AST (SGOT) 40 IU/L 0-40 Not Available [facility] ([facility]) [address] [facility], [place], [address], 05/15/2023 20:36:41 05/09/19 24 05/10/2023 COMP. METAB OLIC PANEL (14) ALT (SGPT) 37 IU/L 0-32 above high normal Not Available [facility] ([facility]) [address] [facility], [place], [address], 05/15/2023 20:36:41 05/09/19 24 05/10/2023 LIPID PANEL cholesterol, total 168 mg/dL 100-19 9 Not Available [facility] ([facility]) [address] [place], [address], 05/15/2023 20:36:42 05/09/19 24 05/10/2023 LIPID PANEL triglyceride s 187 mg/dL 0-149 above high normal Not Available [facility] ([facility]) [address] [place], [address], 05/15/2023 20:36:42 05/09/19 24 05/10/2023 LIPID PANEL HDL cholesterol 45 mg/dL >39 Not Available [facility] ([facility]) [address] [facility], [place], [address], 05/15/2023 20:36:42 05/09/19 24 05/10/2023 LIPID PANEL VLDL cholesterol radha 32 mg/dL 5-40 Not Available [facility] ([facility]) [address] [place], [address], 05/15/2023 20:36:42 05/09/19 24 05/10/2023 LIPID PANEL LDL chol calc ([facility]) 91 mg/dL 0-99 Not Available [facility] ([facility]) [address] [place], [address], 05/15/2023 20:36:42 05/09/19 24 05/10/2023 LIPID PANEL comment: MACHINE SKIVER Not Available [facility] ([facility]) [address] [facility], [place], [address], 05/15/2023 20:36:42 05/09/19 24 05/13/2023 VITAM IN E vitamin E(alpha tocopherol) 10.3 mg/L 7.0-25 .1 Not Available [facility] ([facility]) [address] [facility], [place], [address], 05/15/2023 20:36:43 05/09/19 24 05/13/2023 VITAM IN [...] in E defic ient. Not Available [facility] ([facility]) [address] [facility], [place], [address], 05/15/2023 20:36:43 05/09/19 24 05/10/2023 HEMOG LOBIN A1C hemoglobin A1C 6.6 % 4.8-5. 6 above high normal Predi abete s: 5.7 - 6.4 Diabe ovi: >6.4 Glyce noy contr ol for adult s with diabe ovi: <7.0 Not Available [facility] ([facility]) [address] [facility], [place], [address], 05/15/2023 20:36:44 05/09/19 24 05/10/2023 FOLAT E (FOLI C ACID) , SERUM folate (folic acid), serum >20.0 NG/mL >3.0 A serum folat e ly ntrat ion of less than 3.1 ng/mL is consi dered to repre sent clini radha defic iency . Not Available [facility] ([facility]) [address] [facility], [place], [address], 05/15/2023 20:36:45 05/09/19 24 05/13/2023 VITAM IN [...] Drug Admin istra tion. Not Available [facility] ([facility]) [address], [place], [address], 05/15/2023 20:36:45 05/09/19 24 05/10/2023 VITAM IN [...] Edwin garcia DC: [facility] Press . 2. Frankie love MF, Kia art NC, Alirio off-F errmelanie i GAYTAN, et al. Evalu ation , treat ment, and preve ntion of vitam in D defic iency : an Endoc rine Socie ty clini radha pract ice guide line. JCEM. 2010; 96(7) :1911 -30. Not Available [facility] ([facility]) [address] [facility], [place], [address], 05/15/2023 20:36:46 05/09/19 24 05/13/2023 VITAM IN B1 (THIA MINE) , BLOOD vit. B1, whole blood 149.2 nmol/ L 66.5-2 00.0 Not Available [facility] ([facility]) [address] [facility], [place], [address], 05/15/2023 20:36:47 05/09/19 24 05/15/2023 METHY LMALO BEULAH ACID, SERUM methylmaloni c acid, serum 267 nmol/ L 0-378 Not Available [facility] ([facility]) [address] [facility], [place], [address], 05/15/2023 20:36:48 05/09/19 24 05/10/2023 PTH, INTAC T PTH, intact 28 pg/mL 15-65 Not Available [facility] ([facility]) [address] [facility], [place], [address], 05/15/2023 20:36:49 01/02/20 23 01/07/2023 elect rocar diogr am No observ ation record ed. [email or web address] [facility] [address], [place], [address], 05/09/2023 12:06:59 01/08/20 23 01/01/2023 elect rocar diogr am No observ ation record ed. [email or web address] [facility] [address], [place], [address], 05/09/2023 12:06:59 11/08/19 24 11/08/2023 elect rocar diogr am No observ ation record ed. [facility] [address], [place], [address], 11/11/2023 08:49:23 11/08/19 24 11/07/2023 elect bradford fleming am No observ ation record ed. [facility] [address], [place], [address], 11/08/2023 16:15:17 Result Notes None recorded. Problems Name Problem SNOMED Code Status Onset Date Resolution Date Notes Provider Name and Address Organization Details Recorded Time Paroxysmal atrial fibrillati on 310371901 Active 2022 Brown Pillai MD [address] [facility], [place], [address] , [place] [facility] [place] 3 14:01:20 Cardiac arrhythmia 535846380 Active 2022 Brown Pillai MD [address] [facility], [place], [address] , [place] [facility] [place] 3 14:02:22 Dyspnea on exertion 26742812 Active 2022 Brown Pillai MD [address] [facility], [place], [address] , [place] [facility] [place] 3 14:02:29 Nicotine dependence 60405910 Active 2022 Brown Pillai MD [address] [facility], [place], [address] , [place] [facility] [place] 3 14:06:52 Morbid obesity 630745657 Active 2022 Yaakov Greer DNP, CONTROL OFFICER, MACHINE SKIVER-C [address] [facility], [place], [address] , [place] [facility] [place] 3 08:22:41 Unintentio nal weight gain 6921070681911 04 Active 2022 Yaakov Greer DNP, CONTROL OFFICER, MACHINE SKIVER-C [address] [facility], [place], [address] , [place] [facility] [place] 3 08:22:48 Disorder of function of stomach 909696885 Active 2022 Yaakov Greer DNP, CONTROL OFFICER, MACHINE SKIVER-C [address], [place], [address] , [facility] - [facility] & [place] 3 08:22:54 Prediabete s 056934125 Active 2022 Yaakov Greer DNP, CONTROL OFFICER, MACHINE SKIVER-C [address], [place], [address] , [place] [facility] & [place] 3 12:09:37 Essential hypertensi on 77601438 Active 2022 Brown Pillai MD [address], [place], [address] , [facility] - [facility] & [place] 3 14:49:58 Problem Notes None recorded. Procedures Surgical History Date Name Laterality Status Provider Name and Address Organization Details Recorded Time 016 Back Surgery completed Joy Espinal [facility] & [place] 04/04/2022 10:03:14 015 Breast Surgery completed Yaakov Greer DNP, CONTROL OFFICER, MACHINE SKIVER-C [address], [place], [address], [facility] - [facility] & [place] 08/02/2022 10:56:26 015 Knee Surgery completed Yaakov Greer DNP, CONTROL OFFICER, MACHINE SKIVER-C [address], [place], [address], [place] - [facility] & [place] 08/02/2022 10:56:16 Hysterectomy completed Yaakov Greer DNP, CONTROL OFFICER, MACHINE SKIVER-C [address], [place], [address], [place] - [facility] & [place] 08/02/2022 10:56:34 [facility] & [place] 07/31/2022 11:17:18 extraction of wisdom tooth completed Rosalba Noel [facility] & [place] 07/31/2022 11:17:33 ligation of bilateral fallopian tubes completed Rosalba Noel [place] - [facility] [place] [facility] [place] 07/31/2022 11:17:47 cholecystectomy completed Yaakov Meeks, DNP, CONTROL OFFICER, MACHINE SKIVER-C [address] [facility], [place], [address], [facility] - [facility] - [place] [facility] [place] 05/09/2023 10:20:48 Imaging Results None recorded. Procedure [...] Not Available Fish, Flax and Borage Oil (Salley) 400 mg-400 mg-200 mg capsule Take 2 [...] Updated DateTime 05/01/2023 167.64 cm 42 kg/m2 304611.02 g Diamond Baugh [facility] & [place] 05/01/2023 15:24:03 Date Recorded Body height Body mass index (BMI) Body weight Oxygen saturation Oxygen saturation in Arterial blood by Pulse oximetry Heart rate Systolic And Diastolic Provider Name and Address Organization Details Last Updated DateTime 4 167.64 cm 42 kg/m2 944749. 02 g 92 % 92 % 91 /min 110/80 mm[Hg] Suyapa Holden [facility] & [place] 4 15:12:21 Date Recorded Body height Body temperature Heart rate Body mass index (BMI) Body weight Systolic And Diastolic Provider Name and Address Organization Details Last Updated DateTime 4 167.64 cm 98.4 [degF] 83 /min 41.7 kg/m2 716455. 63 g 120/83 mm[Hg] Yael Schroeder [facility] & [place] 4 10:02:22 Date Recorded Body height Body mass index (BMI) Body weight Oxygen saturation Oxygen saturation in Arterial blood by Pulse oximetry Heart rate Systolic And Diastolic Provider Name and Address Organization Details Last Updated DateTime 4 167.64 cm 36.8 kg/m2 659043. 06 g 98 % 98 % 88 /min 118/72 mm[Hg] Deanna Davis [facility] & [place] 4 13:49:51 Date Recorded Body height Body mass index (BMI) Body weight Oxygen saturation Oxygen saturation in Arterial blood by Pulse oximetry Heart rate Systolic And Diastolic Provider Name and Address Organization Details Last Updated DateTime 3 167.64 cm 47 kg/m2 681732. 38 g 96 % 96 % 74 /min 142/90 mm[Hg] Suyapa Holden [facility] & [place] 3 14:33:32 Social History None recorded. Functional Status Question Answer Note LastModified by Organizat ion Details LastModified Time Do you use any illicit or recreational drugs? No Information not available 04/04/2022 Do you or have you ever used any other forms of tobacco or nicotine? Yes [email or web address] Information not available 08/02/2022 What is your level of alcohol consumption? Occasional Information not available 04/04/2022 Do you or have you ever used smokeless tobacco? Former smokeless tobacco user quit 1 month ago [email or web address] Information not available 07/31/2022 Mental Status None [...] [email or web address] Not available 04/03/2022 12:42:24 Father Obese [email or web address] Not available 11/07/2023 13:38:09 Father Diabetes mellitus Not available 2023 13:38:09 Father Sleep disorder [email or web address] Not available 11:15:21 Father Asthma [email or web address] Not available 11/07/2023 13:38:09 Father Chronic obstructive pulmonary disease [email or web address] Not available 11:15:47 Mother Heart disease pt. [...] Not available 04/03/2022 12:42:05 Mother Diabetes mellitus [email or web address] Not available 2023 13:38:09 Mother Malignant neoplasm of breast Not available 2023 13:38:09 Mother Sleep disorder [email or web address] Not available 11:15:21 Mother Asthma [email or web address] Not available 11/07/2023 13:38:09 Mother Chronic obstructive pulmonary disease [email or web address] Not available 11:15:47 Brother Heart disease pt. added direct ly (04/03) [email or web address] Not available 04/03/2022 12:40:10 Brother Obese [email or web address] Not available 11/07/2023 13:38:09 Brother Diabetes mellitus Not available 2023 13:38:09 Brother Sleep disorder [email or web address] Not available 11:15:21 Brother Asthma [email or web address] Not available 11/07/2023 13:38:09 Maternal Grandfather Obese [email or web address] Not available 10/14 13:38:09 Paternal Grandmother Obese [email or web address] Not available 10/14 13:38:09 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 Condition [...] Diagnosis SNOMED-CT Code Diagnosis ICD10 Code Diagnosis IMO Codes Diagnosis Note [id number] Silver Guillen MD [facility] General Surgery [address] [facility] [place] [address] 04/04/2022 09:38:50 04/04/2022 10:27:11 Mass of subcutaneous tissue of abdominal wall [id number] R22.2 [id number] Silver Guillen MD [facility] and Adv Surg [address] [facility] [address] [place] [address] 05/21/2022 08:22:17 05/21/2022 09:03:27 Anterior abdominal wall mass [id number] R19.09 [id number] Brown Pillai MD [facility] [address] [place] [address] 07/04/2022 13:22:51 07/04/2022 16:06:52 Paroxysmal atrial fibrillation 869329878 I48.0 denies any palpitatio ns or recurrent episodes of Afib. Continue current Rx Pre-surger y evaluation 794107458 Z01.818 limited functional capacity due to dyspnea will obtain a stress test for ischemic evaluation prior to surgery Dyspnea on exertion 6084 5006 R06.09 Echo to evaluate EF, diastolic function, valves and pulmonary pressures Nicotine dependence 5629 4008 F17.200 Complete smoking cessation strongly urged Tips and resources provided [id number] Yaakov Greer, DNP, CONTROL OFFICER, MACHINE SKIVER-C [facility] Bariatric s and Adv Surg [address] [facility] [address] [place] [address] 08/02/2022 08:19:10 08/02/2022 11:06:51 Obesity [id number] E66.9 The patient will be scheduled for [...] all testing has been completed Cardiac arrhythmia 29899 7007 I49.9 Nicotine dependence 5629 4008 F17.200 Paroxysmal atrial fibrillation 869458215 I48.0 Morbid obesity 254471193 E66.01 Disorder o f function of stomach 270721224 K31.89 Unintentio nal weight gain 7416474263 21069 R63.5 Prediabetes 594193285 R7 3.03 [id number] Brown Pillai MD [facility] [address] [place] [address] 01/01/2023 14:09:05 01/01/2023 14:59:48 Paroxysmal atrial fibrillation 771325262 I48.0 No palpitatio ns or recurrent episodes of Afib. Continue current Rx Nicotine dependence 5629 4008 F17.200 Complete smoking cessation strongly urgedTips and resources provided Essential hypertension 95633532 I10 stop lopressor and start coreg for better BP control [id number] Yaakov Greer, DNP, CONTROL OFFICER, MACHINE SKIVER-C [facility] Bariatric s and Adv Surg [address] [facility] [address] [place] [address] 05/09/2023 09:38:42 05/09/2023 10:55:22 Obesity 527737829 E66.9 The patient will be scheduled for [...] Nicotine dependence 5629 4008 F17.200 Morbid obesity 838545335 E66.01 Essential hypertension 49591150 I10 Paroxysmal atrial fibrillation 084511041 I48.0 Prediabetes 986368576 R7 3.03 Unintentio nal weight gain 6790447806 57366 R63.5 [id number] Brown Pillai MD [facility] [address] [facility] [address] [place] [address] 05/07/2023 14:56:41 05/07/2023 15:33:36 Paroxysmal atrial fibrillation 160573109 I48.0 No palpitatio ns or recurrent episodes of Afib. Continue current Rx including flecainide beta blockadeco ntinue aspirin Essential hypertension 79298286 I10 Continue current medication . Keep log Low-salt diet < 2 gm Na/day, Regular exercise Weight loss Nicotine dependence 5629 4008 F17.200 Complete tobacco cessation strongly urgedTips and resources provided [id number] THOR HEATH RDN, LD [facility] Bariatric s and Adv Surg [address] [facility] [address] [place] [address] 05/09/2023 11:05:14 05/09/2023 11:36:15 Morbid obesity 953678712 E66.01 Increase physical activity as tolerated to diversify regimen - add balance/st rength-tra iningFollo w 2-4 hour rule aiming to eat q4h and increase protein per recs in manualCons ume low-calori e drinks - decaf and uncarbonat ed, 64 oz/day Tobacco user 060272737 Z 72.0 Continue tobacco cessation efforts to aid with healing and prevent developmen t of GI ulcers and health concerns post-op. Pt reports her current efforts to cease tobacco use are sufficient without the need for additional support or interventi on at this time. [id number] Brown Pillai MD [facility] [address] [place] [address] 11/07/2023 13:35:51 11/07/2023 14:55:30 Paroxysmal atrial fibrillation 575222633 I48.0 No palpitatio ns or recurrent episodes of Afib. Continue current Rx including flecainide beta blockadeco ntinue aspirinEKG completed in office and personally reviewed and interprete d by me.Finding s in note Essential hypertension 19631955 I10 Continue current medication . Keep log [...] [place] Member ID Guarantor Name 05/03/2023 1 [facility] (POS II) Jane Madden [id number] Jane Madden 05/03/2023 1 [employer] (MEDICAID REPLACEMENT - HMO) [id number] Jane Madden [id number] Jane Madden 11/04/2023 1 [facility] (MEDICAID HMO) Jane Madden [id number] Jane Madden Notes Date Note Type Note [...] intervals. Brown Pillai MD [address], [place], [address], [facility] & [place] 01/04/2023 16:13:07 05/07/2023 text/html 52 F here [...] intervals. Brown Pillai MD [address], [place], [address], [facility] [place] 05/07/2023 15:40:55 05/09/2023 text/html ROS as noted [...] fat 53.3, basal metabolic 1552. Yaakov Greer, DNP, CONTROL OFFICER, MACHINE SKIVER-C [address] [facility], [place], [address], [facility] [place] [facility] [place] & [place] 05/09/2023 12:11:05 05/09/2023 text/html RDN met w/ [...] eating 1x/day. Reports poor po tolerance of Pakistani or Somali foods. Reports drinking water, iced tea with [...] complete ADLs THOR HEATH RDN, LD [address] , [place], [address], [facility] [place] [facility] [place] & [place] 05/09/2023 14:34:15 11/07/2023 text/html ROS as noted in the HPI 52 F here for fuPCP Jennifer Gonzales, [facility] 30 lbs weight loss with OzempicNo chest [...] 66, normal axis, normal intervals. CHRISTIE YU, SANTOS [address] [facility], [place], [address], [facility] & [place] 11/08/2023 12:38:25 OBGyn Episode No OBEpisode recorded.
--- OUTSIDE RECORDS SUMMARY | 2025-01-28 18:20 | XMS_ITS | Encounter Summary ---
Author Organization [place] [address] Care Team Providers Care Plant Director Name Role Phone Juana Bailey APRN Primary Care Provider +1- [phone] Reason for Visit * Reason Comments Medication Refill Encounter Details Date Type Department Care Team (Late st Contact Info) Description 11/30/2024 Refill SEP Nati [address] [place] [phone] Juana Bailey APRN [address] [place] [address] Medication Refill Social History Tobacco Use Types Packs/Day Years Used Date Smoking Tobacco: Never Smokeless Tobacco: Current Snuff Alcohol Use Standard Drinks/Week Comments Not Currently 0 (1 standard drink = 0.6 oz pur e alcohol) Overall Financial Resource Strain ([facility]) Answe r Date Recorded How hard is it for you to pa y for the very basics like food, housing, medical care, and heating? Not very hard 03/05/2023 PHQ-2 Answer Date Recorded PHQ-2 Total Score 0 11/20/2024 [employer] [place] of Occupat ional Health - Occupational [...] Assessment Author No 11/20/2024 10:18 AM Sarah Polanoc CCMA * Does this person have difficulty [...] Yeh, RMA BMI (Calculated) < 30 General 34.5(01/02/20 25 4:04 PM EDT) No Juana Bailey APRN [...] documented as of this encounter Care Teams Plant Director Relationship Specialty Start Date End Date Juana Bailey APRN [address] [place] [address] PCP - General Nurse Practitioner-Family 08/29/22 documented as of this encounter
--- OUTSIDE RECORDS SUMMARY | 2025-01-28 18:20 | XMS_ITS | Encounter Summary ---
Author Organization [place] [address] Care Team Providers Care Dining Services Manager Name Role Phone Juana Bailey APRN Primary Care Provider +1- [phone] Reason for Visit * Reason Comments Medication Refill Encounter Details Date Type Department Care Team (Late st Contact Info) Description 01/05/2025 Refill SEP Nati [address] [place] [phone] Juana Bailey APRN [address] [facility] [place] [address] Medication Refill Social History Tobacco Use Types Packs/Day Years Used Date Smoking Tobacco: Never Smokeless Tobacco: Current Snuff Alcohol Use Standard Drinks/Week Comments Not Currently 0 (1 standard drink = 0.6 oz pur e alcohol) Overall Financial Resource Strain ([facility]) Answe r Date Recorded How hard is it for you to pa y for the very basics like food, housing, medical care, and heating? Not very hard 03/05/2023 PHQ-2 Answer Date Recorded PHQ-2 Total Score 0 11/20/2024 [facility] [place] of Occupat ional Health - Occupational Stress [...] flecainide (TAMBOCOR) 50 mg Oral Tablet TAKE 1 TABLET BY MOUTH TWICE DAILY 60 Tablet 5 01/05/2025 omeprazole (PRILOSEC) 20 mg Oral Capsule, Delayed Release(E.C.) TAKE 1 CAPSULE BY MOUTH EVERY DAY 100 Capsule 2 01/05/2025 documented in this encounter Miscellaneous Notes * Telephone Encounter - Hattie rBown CPhT - 01/05/2025 2:34 PM EDT Omeprazole - Future Visit: N/A Last Assessed Visit: 11/20/24 (AWV or similar dx) Follow-Up Date: 11/20/25 All protocols passed. Refills approved and sent to requesting pharmacy. Routed to [facility] if an appointment is needed. Flecainide - There is no CRS protocol for this medication. documented in this encounter Plan of Treatment [...] 1 CAPSULE BY MOUTH ONCE A DAY 07/14/2024 01/05/2025 flecainide (TAMBOCOR) 50 mg Oral Tablet TAKE ONE TABLET BY MOUTH 2 TIMES A DAY 07/14/2024 01/05/2025 documented as of this encounter Care Teams Dining Services Manager Relationship Specialty Start Date End Date Juana Bailey APRN [address] [place] [address] PCP - General Nurse Practitioner-Family 08/29/22 documented as of this encounter
--- OUTSIDE RECORDS SUMMARY | 2025-01-28 18:20 | XMS_ITS | Encounter Summary ---
Author Organization [place] [address] Care Team Providers Care Photo Checker Name Role Phone Juana Bailey APRN Primary Care Provider +1- [phone] Reason for Visit * Reason Onset Date Comments Medication Management 01/04/2025 CPASFYI: P harmacy change per patient request, verified original Rx is cancelled, Rx resent to requested pharmacy.No further workup needed. Thank you. Encounter Details Date Type Department Care Team (Late st Contact Info) Description 01/04/2025 Telephone SEP Nati PATEL [address] [place] [address] Juana Bailey APRN [address] [facility] [place] [address] Medication Management (CPASFYI: Pharmacy change per patient request, verified original Rx is cancelled, Rx resent to requested pharmacy.No further workup needed. Thank you./) Social History Tobacco Use Types Packs/Day Years [...] Date Recorded PHQ-2 Total Score 0 11/20/2024 [facility] [place] of Occupat ional Health - Occupational Stress [...] times daily for 5 days. 10 Tablet 01/04/2025 01/09/2025 documented in this encounter Miscellaneous Notes * Telephone Encounter - Hattie Henderson MA - 01/04/2025 11:24 AM EDT Select the most appropriate reason for this telephone message: Medication Management/Problem Who is calling? Patient What medication(s) do you have concerns about: predniSONE (DELTASONE) 20 mg Oral Tablet 10 Tablet 0 01/01/2025 01/06/2025 Sig - Route: Take 1 Tablet by mouth 2 times daily for 5 days. - Oral Sent to pharmacy as: predniSONE 20 mg tablet (DELTASONE) E-Prescribing Status: Receipt confirmed by pharmacy (01/01/2025 5:00 PM EDT) Prescribing provider: Sarah Gomez APRN What are your concerns/request: Pharm Change Desired outcome: Direct Contact - see encounter details CC spoke with Sabrina at [facility] and confirmed the following Rx has been cancelled. Per pt request, Rx re-sent to: [facility] - [place] [address] - [address] [address] [address] - [phone] [[id number]] Is medication requested to be corrected prescribed from hospitalist/ER Physician?: No Last appointment date: 01/01/25 Pharmacy: [facility] - [place] [address] - [address] [address] [address] [phone] [[id number]] Return Method of Communication: N/A Additional Information: CPASFYI: Pharmacy change per patient request, verified original Rx is cancelled, Rx resent to requested pharmacy.No further workup needed. Thank you. documented in this encounter Plan of Treatment [...] this encounter Visit Diagnoses Diagnosis Acute coccygeal pain Other disorder of coccyx documented in this encounter Discontinued Medications Medication Sig Discontinue Reason Start Date End Da te predniSONE (DELTASONE) 20 mg Oral TabletIndications:Acute coccygeal pain Take 1 Tablet by mouth 2 times daily for 5 days. Reorder 01/01/2025 01/04/2025 documented as of this encounter Care Teams Photo Checker Relationship Specialty Start Date End Date Juana Bailey APRN [address] [place] [address] PCP - General Nurse Practitioner-Family 08/29/22 documented as of this encounter
--- OUTSIDE RECORDS SUMMARY | 2025-01-28 18:20 | XMS_ITS | Encounter Summary ---
Author Organization [place] [address] Care Team Providers Care Supervisor Metal Placing Name Role Phone Juana Bailey APRN Primary Care Provider [phone]- [phone] Encounter Details Date Type Department Care Team (Late st Contact Info) Description 11/24/2024 Results Follow-Up SEP Nati [address] [place] [address] Juana Bailey APRN [address] [facility] [address] [place] [id number] MICROALBUMIN/CREATIN INE RATIO URINE, URINE CULTURE (NO [...] Recorded PHQ-2 Total Score 0 11/20/2024 [facility] [place] of Occupat ional Health - Occupational Stress [...] daily for 3 days. 3 Tablet 11/24/2024 5 documented in this encounter Plan of Treatment [...] documented as of this encounter Results * BASIC METABOLIC PANEL (12/11/2024 10:15 AM EDT) [facility] Sodium 139 136 - 145 mmol/L 12/11/2024 4:32 PM EDT [facility] Potassium 3.7 3.5 - 5.0 mmol/L 12/11/2024 4:32 PM EDT [facility] Chloride 104 98 - 107 mmol/L 12/11/2024 4:32 PM EDT [facility] Total CO2 22 22 - 29 mmol/L 12/11/2024 4:32 PM EDT [facility] Anion Gap 13 7 - 16 mmol/L 12/11/2024 4:32 PM EDT [facility] Calcium 9.7 8.6 - 10.4 mg/dL 12/11/2024 4:32 PM EDT [facility] Glucose Lvl 86 70 - 99 mg/dL 12/11/2024 4:32 PM EDT [facility] BUN 16 6 - 20 mg/dL 12/11/2024 4:32 PM EDT [facility] Creatinine 0.73 0.51 - 1.30 mg/dL 12/11/2024 4:32 PM EDT [facility] eGFR (CKD-EPIcr 2020) 96 >=60 mL/min/1.7 3 m2 12/11/2024 4:32 PM EDT [facility] Comment:Estimated GFR was ca lculated using the CKD-EPIcr (2020) equation refit without race. The equation is recommended by the National Kidney Foundation - [place] [employer] of Nephrology Task Force. Blood VENOUS BLOOD / Unknown Venipuncture / Unknown 12/11/2024 10:15 AM EDT 12/11/2024 10:15 AM EDT Juana Bailey APRN CHEMISTRY ORDERABLES Final Result [facility] [address] [facility] , [address] [place] [id number] documented in this encounter Visit Diagnoses Diagnosis Type 2 diabetes mellitus with hyperlipidemia (HCC)- Primary Dyslipidemia Other and unspecified hyperlipidemia ASHD (arteriosclerotic heart disease) Coronary atherosclerosis of unspecified type of vessel, tanana or graft Hypokalemia Hypopotassemia documented in this [...] documented as of this encounter Care Teams Supervisor Metal Placing Relationship Specialty Start Date End Date Juana Bailey APRN [address] [place] [address] PCP - General Nurse Practitioner-Family 08/29/22 documented as of this encounter
--- OUTSIDE RECORDS SUMMARY | 2025-01-28 18:20 | XMS_ITS | Encounter Summary ---
Author Organization [place] [address] Care Team Providers Care Supervisor Cell Operation Name Role Phone Juana Bailey APRN Primary Care Provider +1- [phone] Reason for Visit * Reason Comments Medication Refill Encounter Details Date Type Department Care Team (Late st Contact Info) Description 12/03/2024 Refill SEP Nati [address] [place] [phone] Juana Bailey APRN [address] [place] [address] Medication Refill Social History Tobacco Use Types Packs/Day Years Used Date Smoking Tobacco: Never Smokeless Tobacco: Current Snuff Alcohol Use Standard Drinks/Week Comments Not Currently 0 (1 standard drink = 0.6 oz pur e alcohol) Overall Financial Resource Strain ([facility]) Answe r Date Recorded How hard is it for you to pa y for the very basics like food, housing, medical care, and heating? Not very hard 03/05/2023 PHQ-2 Answer Date Recorded PHQ-2 Total Score 0 11/20/2024 [facility] [place] of Occupat ional Health - Occupational Stress [...] Component 5.9( 10:54 AM EDT) No Juana Baiely APRN documented as of this encounter Visit Diagnoses Diagnosis Type 2 diabetes mellitus with hyperlipidemia (HCC) Statin myopathy Toxic myopathy documented in this encounter Care Teams Supervisor Cell Operation Relationship Specialty Start Date End Date Juana Bailey APRN [address] [place] [address] PCP - General Nurse Practitioner-Family 08/29/22 documented as of this encounter
--- OUTSIDE RECORDS SUMMARY | 2025-01-28 18:20 | XMS_ITS | Encounter Summary ---
Author Organization [place] [address] Care Team Providers Care Photography Intern Name Role Phone Juana Bailey APRN Primary Care Provider +1- [phone] Reason for Visit * Reason Onset Date Comments Medication Management 12/18/2024 hydroCHLOR Othiazide 25 mg Oral Tablet Encounter Details Date Type Department Care Team (Late st Contact Info) Description 12/18/2024 Telephone SEP Nati [address] [place] [address] Juana Bailey APRN [address] [place] [address] Medication Management (hydroCHLOROthiazide 25 mg Oral Tablet) Social History Tobacco Use Types Packs/Day Years [...] Date Recorded PHQ-2 Total Score 0 11/20/2024 [facility] [place] of Occupat ional Health - Occupational Stress [...] Telephone Encounter - Sarah Crowell CCMA - 12/18/2024 11:23 AM EDT Pt notified * Telephone Encounter - Juana Bailey APRN - 12/18/2024 11:06 AM EDT I would continue with the cut back dose. Thanks. * Telephone Encounter - Hattie Henderson MA - 12/18/2024 10:46 AM EDT Select the most appropriate reason for this telephone message: Medication Management/Problem Who is calling? Patient What medication(s) do you have concerns about: Disp Refills Start End hydroCHLOROthiazide 25 mg Oral Tablet 30 Tablet 4 08/11/2024 -- Sig - Route: TAKE 1 TABLET BY MOUTH EVERY DAY - Oral Sent to pharmacy as: hydroCHLOROthiazide 25 mg tablet Cosign for Ordering: Accepted by Juana Bailey APRN on 08/11/2024 4:14 PM E-Prescribing Status: Receipt confirmed by pharmacy (08/11/2024 3:31 PM EDT) Prescribing provider: Juana Bailey APRN What are your concerns/request: Pt wants to confirm if she should still be cutting back on water pill, or if she should proceed taking daily since having BMP repeated. Desired outcome: Clarification of prescription Last appointment date: 11/20/24 Pharmacy: n/a Return Method of Communication: Docitthart Message Additional Information: Please clarify how pcp would like pt to proceed with taking diuretic since having BMP rechecked. FOLLOW UP NEEDED:Thank you. documented in this encounter Plan of [...] on filedocumented in this encounter Care Teams Photography Intern Relationship Specialty Start Date End Date Juana Bailey APRN [address] [place] [address] PCP - General Nurse Practitioner-Family 08/29/22 documented as of this encounter
--- OUTSIDE RECORDS SUMMARY | 2025-01-28 18:20 | XMS_ITS | Encounter Summary ---
Author Organization [place] [address] Care Team Providers Care Ceramic Saw Tender Name Role Phone Juana Bailey APRN Primary Care Provider Reason for Visit * Reason Onset Date Comments Refill 01/21/2025 Ozempic Encounter Details Date Type Department Care Team (Late st Contact Info) Description 01/21/2025 Telephone SEP Nati [address] [place] [address] Juana Bailey APRN [address] [place] [address] Refill (Ozempic) Social History Tobacco Use Types Packs/Day Years [...] Date Recorded PHQ-2 Total Score 0 11/20/2024 [facility] [place] of Occupat ional Health - Occupational Stress [...] of Assessment Author No 11/20/2024 10:18 AM EDSarah Al CCMA * Because of a physical, mental or emotional condition, does this person have difficulty doing errands alone such as visiting a doctor's office or shopping? Answer Date of Assessment Author No 11/20/2024 10:18 AM EDSarah Al CCMA documented as of this encounter Mental Status * Because of a physical, mental or emotional condition, does this person have serious difficulty concentrating, remembering or making decisions? Answer Entry Date Author No 11/20/2024 10:18 AM EDSarah Al CCMA documented in this encounter Ordered Prescriptions Prescription Sig Dispense Quantity Refills Last Filled Start Date End Date semaglutide (OZEMPIC) 2 mg/dose (8 mg/3 mL) SubQ Pen InjectorIndications: Type 2 diabetes mellitus with hyperlipidemia (HCC) Inject 2 mg under the skin once a week. 3 mL 11 01/21/2025 documented in this encounter Miscellaneous Notes * Telephone Encounter - Tabitha Hamm MA - 01/21/2025 11:19 AM EDT sent * Telephone Encounter - Luh Webb MA - 01/21/2025 11:11 AM EDT Select the most appropriate reason for this telephone message: Medication Refill Who is requesting the refill: Patient Return Method of Communication: N/A Medication(s)Name/Dosage/Frequency: semaglutide (OZEMPIC) 2 mg/dose (8 mg/3 mL) SubQ Pen Injector 3 mL 11 01/17/2024 -- Sig - Route: Subcutaneous (Inject under the skin) 2 mg once a week. - Subcutaneous Prescribing provider: David Bailey APRN Did patient contact the pharmacy first: Yes / Pt states pharmacy hasn't received response How many days left on hand: 2 / due for injection tomorrow Future appt date w/ prescribing provider: None Pharmacy & Location: [facility] - [place] [address] - [address] [address] [address] [phone] [address] [address] [address] [place] [address] LALY #: -- Informed patient refill requests can take up to 72 business hours for response No Additional Information: N/A documented in this encounter [...] Reason Start Date End Da te semaglutide 0.25 mg or 0.5 mg (2 mg/3 mL) SubQ Pen InjectorIndications:Typ e 2 diabetes mellitus with hyperlipidemia (HCC) Subcutaneous (Inject under the skin) 0.25 mg once a week for 28 days, THEN 0.5 mg once a week for 14 days. Medication order 01/03/2023 02/14/2023 semaglutide (OZEMPIC) 2 mg/dose (8 mg/3 mL) SubQ Pen InjectorIndications:Typ e 2 diabetes mellitus with hyperlipidemia (HCC) Subcutaneous (Inject under the skin) 2 mg once a week. Reorder 01/17/2024 01/21/2025 documented as of this encounter Care Teams Ceramic Saw Tender Relationship Specialty Start Date End Date Juana Bailey APRN [address] [place] [address] PCP - General Nurse Practitioner-Family 08/29/22 documented as of this encounter
--- OUTSIDE RECORDS SUMMARY | 2025-01-28 18:20 | XMS_ITS | Clinical Summary ---
Author Organization Healthcare Address [address] [place] [address] Care Team Providers Care Audit Intern Name Role Phone Gamal Queen MD Primary Care Provider [phone] Family History 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 Relation Name Comments [...] of Treatment Not on file Care Teams Audit Intern Relationship Specialty Start Date End Date Gamal Queen MD [facility] [place] [address] PCP - General 08/26/20
--- OUTSIDE RECORDS SUMMARY | 2025-01-28 18:21 | XMS_ITS | Encounter Summary ---
Author Organization [place] [address] Care Team Providers Care Cadastral Engineer Name Role Phone Juana Bailey APRN Primary Care Provider Reason for Visit * Reason Onset Date Comments Results 11/23/2024 Labs Encounter Details Date Type Department Care Team (Late st Contact Info) Description 11/23/2024 Telephone SEP Nati [address] [place] [address] Juana Bailey APRN [address] [place] [address] Results (Labs) Social History Tobacco Use [...] Date Recorded PHQ-2 Total Score 0 11/20/2024 [facility] [place] [facility] - Occupational Stress [...] test: Jennifer Bailey Where was test performed: [facility] Return Method of Communication: Phone Call [...] on filedocumented in this encounter Care Teams Cadastral Engineer Relationship Specialty Start Date End Date Juana Bailey APRN [address] [place], [place] [address] PCP - General Nurse Practitioner-Family 08/29/22 documented as of this encounter
--- OUTSIDE RECORDS SUMMARY | 2025-01-28 18:21 | XMS_ITS | Clinical Summary ---
Author Organization [facility] Address [address] [place], [place] [address] Phone Care Team Providers Care Raw Juice Weigher Name Role Phone Juana Bailey ZAHRA Primary Care Provider Allergies Active Allergy Reactions Criticality Noted Date Comments Acetaminophen-Codeine Hives 11/04/2024 Medications fish oil OTC (OMEGA-3 DHA-EPA 300 MG) 300-1,000 mg Oral Capsule, Delayed Release(E.C.) Take 2 g by mouth daily. Active b bihssjf-G-pyytm acid (NEPHROCAP) 1 mg Oral Capsule Take [...] for Wheezing. 1 Each 2 023 Active loratadine (CLARITIN) 10 mg Oral Tablet TAKE ONE TABLET BY MOUTH ONCE A DAY 30 Tablet 024 Active cyanocobalamin 1,000 mcg Oral Tablet Take 1 Tablet by mouth daily. 30 Tablet 024 Active Zinc Acetate, Oral, 50 mg (zinc) Oral Capsule Take 50 mg by mouth daily. 30 Capsule 024 Active ascorbic acid, vitamin C, (VITAMIN C) 500 mg Oral Tablet Take 2 Tablets by mouth daily. 60 Tablet 024 Active Cholecalciferol, Vitamin D3, 125 mcg (5,000 unit) Oral Capsule Take 5,000 Units by mouth daily. 30 Capsule 024 Active allopurinoL (ZYLOPRIM) 300 mg Oral TabletIndications :Elevated uric acid in blood TAKE ONE TABLET BY MOUTH ONCE A DAY 100 Tablet 2 025 Active minoxidiL (LONITEN) 2.5 mg Oral TabletIndications :Hair loss TAKE ONE TABLET BY MOUTH ONCE A DAY 30 Tablet 5 025 Active ergocalciferol (DRISDOL) 1,250 mcg (50,000 [...] 2 TIMES A DAY 200 Tablet 2 025 Active ezetimibe (ZETIA) 10 mg Oral TabletIndications :Type 2 diabetes mellitus with hyperlipidemia (HCC),Statin myopathy TAKE ONE TABLET BY MOUTH ONCE A DAY 90 Tablet 3 025 Active gabapentin (NEURONTIN) 400 mg Oral Capsule Take 400 mg by mouth nightly. at bedtime 025 Active omeprazole (PRILOSEC) 20 mg Oral Capsule, Delayed Release(E.C.) TAKE 1 CAPSULE BY MOUTH EVERY DAY 100 Capsule 2 025 Active flecainide (TAMBOCOR) 50 mg Oral Tablet TAKE 1 TABLET BY MOUTH TWICE DAILY 60 Tablet 5 025 Active hydroCHLOROthiazi de 25 mg Oral TabletIndications :Peripheral edema TAKE 1 TABLET BY MOUTH ONCE A DAY 100 Tablet 2 Active semaglutide (OZEMPIC) 2 mg/dose (8 mg/3 mL) SubQ Pen InjectorIndicatio ns:Type 2 diabetes mellitus with hyperlipidemia (HCC) Inject 2 mg under the skin once a week. 3 mL 11 025 Active semaglutide (OZEMPIC) 2 mg/dose (8 mg/3 mL) SubQ Pen InjectorIndicatio ns:Type 2 diabetes mellitus with hyperlipidemia (HCC) Subcutaneous (Inject under the skin) 2 mg once a week. 3 mL 11 024 2024 Discontinued(R eorder) omeprazole (PRILOSEC) 20 mg Oral Capsule, Delayed Release(E.C.) TAKE 1 CAPSULE BY MOUTH ONCE A DAY 30 Capsule 5 025 2024 Discontinued flecainide (TAMBOCOR) 50 mg Oral Tablet TAKE ONE TABLET BY MOUTH 2 TIMES A DAY 60 Tablet 5 025 2024 Discontinued hydroCHLOROthiazi de 25 mg Oral TabletIndications :Peripheral edema TAKE 1 TABLET BY MOUTH EVERY DAY 30 Tablet 4 025 2024 Discontinued predniSONE (DELTASONE) 20 mg Oral TabletIndications :Acute coccygeal pain Take 1 Tablet by mouth 2 times daily for 5 days. 10 Tablet 025 2024 Discontinued(R eorder) predniSONE (DELTASONE) 20 mg Oral TabletIndications :Acute coccygeal pain Take 1 Tablet by mouth 2 times daily for 5 days. 10 Tablet 025 2024 Discontinued(R eorder) predniSONE (DELTASONE) 20 mg Oral TabletIndications :Acute coccygeal pain Take 1 Tablet by mouth 2 times daily for 5 days. 10 Tablet 025 2024 Active Problems Problem Noted Date Diagnosed Date [...] right thoracic pain. Sees pain mgmt at [facility] Will get outpt xray and have her [...] Encounters Date Type Department Care Team Description 01/21/2025 Telephone SEP [facility] [address] [place] [phone] Lynn, Juana, DISBURSEMENT CLERK Refill (Ozempic) 01/19/2025 Refill SEP [facility] [address] [place] [phone] Lynn, Juana, DISBURSEMENT CLERK Medication Refill 01/05/2025 Refill SEP [facility] [address] [place] [phone] Lynn, Juana, DISBURSEMENT CLERK Medication Refill 01/04/[address] [place] [phone] Juana Bailey APRN Medication Management (CPASFYI: Pharmacy change per patient request, verified original Rx is cancelled, Rx resent to requested pharmacy.No further workup needed. Thank you./) 01/01/2025 4:00 PM EDT Office Visit [address] [place] [phone] Sarah Gomez APRN Acute coccygeal pain (Primary Dx) 12/18/[address] [place] [phone] Juana Bailey APRN Medication Management (hydroCHLOROthiazide 25 mg Oral Tablet) 12/11/2024 10:00 AM EDT Clinical Support [address] [place] [phone] Tito Pal MA Hypokalemia 12/11/2024 Results Follow-Up [address] [place] [phone] Juana Bailey, DISBURSEMENT CLERK BASIC METABOLIC PANEL 12/03/[address] [place] [phone] Juana Bailey, DISBURSEMENT CLERK Medication Refill 11/30/[address] [place] [phone] LynnJuana lemon, DISBURSEMENT CLERK Medication Refill 11/27/[address] [place] [phone] Juana Bailey, DISBURSEMENT CLERK Relaying Information (Pt. Has a question about a medication that she is supposed to stop taking for a few weeks and is confused on which medication that it is. /Please call Pt. To clarify. /) 11/24/2024 Results Follow-Up [address] [place] [phone] Juana Bailey APRN MICROALBUMIN/CREATININ E RATIO URINE, URINE CULTURE (NO STAIN), CBC WITH DIFF, Additional followed-up results: 7 11/23/[address] [place] [phone] Juana Bailey APRN Results (Labs) 11/20/2024 10:15 AM EDT Office Visit [place] [address] [place] [phone] Juana Bailey APRN Annual physical exam (Primary Dx); Vitamin D deficiency; Type 2 diabetes mellitus with hyperlipidemia (HCC); Statin myopathy; Stage 3b chronic kidney disease (HCC); Paroxysmal atrial fibrillation (HCC); Elevated uric acid in blood; Dyslipidemia; Obesity, Class I, BMI 30-34.9; Screening for thyroid disorder; Chronic midline thoracic back pain; Dysuria 11/11/2024 10:15 AM EDT Office Visit [address] [place] [phone] Juana Bailey APRN Rhinosinusitis (Primary Dx) 11/04/2024 2:07 PM EDT Anesthesia Event [facility] [address] [place] [address] Zeb Tamayo CRNA Salyer, Corey L, APRN 11/04/2024 11:58 AM EDT - 11/04/2024 11:59 PM EDT Hospital Encounter [facility] [address] [place] [address] Nitin Morgan MD Ansari, Camron R, CRNA Screening for colon cancer Discharge Disposition: Home or Self Care 11/04/2024 Travel 11/01/2024 Refill [place] [address] [place] [phone] Juana Bailey APRN Medication Refill from Last [...] Date Recorded PHQ-2 Total Score 0 11/20/2024 [facility] [place] of Occupat ional Health - Occupational Stress [...] Mass Index 34.45 01/01/2025 4:04 PM EDT Plan of Treatment Health Maintenance Due Date Last Done Comments DTaP/TDaP/Td (1 - Tdap) 07/03/1987 Hepatitis B Vaccine (1 of 3 - 19+ 3-dose series) 07/03/1987 Pneumococcal Vaccine 50+ (1 of 2 - PCV) 07/03/1987 FIT 2013 Sigmoidoscopy 2013 Virtual Colonography 2013 Zoster (1 of 2) 2018 COVID-19 Vaccine (1 - 2025-26 season) 2024 Influenza Vaccine (#1) 2024 9, 01/13/2015, 01/16/2012 Cologuard 04/16/2025 04/16/2022 Hemoglobin A1c 05/23/2025 11/20/2024, 04/16, 03/19/2024, Additional history exists Annual Wellness Exam 11/20/2025 11/20/2024 Kidney Health: uACR 11/20/2025 11/20/2024, Lipids 11/20/2025 11/20/2024, 04/16, 10/24/2023, Additional history exists Kidney Health: eGFR 12/11/2025 12/11/2024, 11/20/2024, 05/07/2024, Additional history exists Diabetic Eye Exam 12/23/2025 [...] Blood Pressure 104/67(2024 4:04 PM EDT) No Lynn Juana, DISBURSEMENT CLERK Maintain a healthy diet, exercise regularly and maintain an ideal body weight General No Noelle Yeh RMA BMI (Calculated) < 30 General 34.5(01/02/20 4:04 PM EDT) No [place] Juana, DISBURSEMENT CLERK Stay Tobacco Free Lifestyle No LynnArnoldoJuana, DISBURSEMENT CLERK HEMOGLOBIN A1C < 7.0 Result Component 5.9( 10:54 AM EDT) No Juana Bailey APRN Procedures Procedure Name Priority Date/Time Associated Diagnosis Comments BASIC METABOLIC PANEL Routine 12/11/2024 10:15 AM EDT Hypokalemia URIC ACID Routine 11/20/2024 10:54 AM EDT [...] Routine 11/04/2024 1:0 4 PM EDT MM MAMMO DIGITAL MARCO SCREEN BILAT Routine 08/31/2024 11:36 AM EDT Encounter for screening 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 cancer OBEDIENCE TRAINER CYTOLOGY REQUEST (PAP ONLY) Routine 05/22/2023 9:58 AM EST Cervical cancer screening Screening for STDs (sexually transmitted diseases) DIABETES EYE EXAM Routine 02/20/2022 8:43 AM EST from Last 3 Months or Most Recently Relevant to Health Maintenance Results * BASIC METABOLIC PANEL (12/11/2024 10:15 [...] 4:32 PM EDT [facility] eGFR (CKD-EPIcr 2020) 96 >=60 mL/min/1.7 3 m2 12/11/2024 4:32 PM EDT [facility] Comment:Estimated GFR was ca lculated using the CKD-EPIcr (2020) equation refit without race. The equation is recommended by the National Kidney Foundation - [place] [employer] of Nephrology Task Force. Blood VENOUS BLOOD / Unknown Venipuncture / Unknown 12/11/2024 10:15 AM EDT 12/11/2024 10:15 AM EDT Juana Lynn DISBURSEMENT CLERK CHEMISTRY ORDERABLES Final Result [facility] [employer] [address], [address] [place], [place] [id number] * (ABNORMAL) LIPID PANEL REFLEX (11/20/2024 10:54 AM EDT) Cholesterol 219(H) <200 mg/dL 11/20/2024 3:56 PM EDT [facility] Comment: < 200 Desirable 200 - 239 Borderline High >= 240 High Triglyceride 184(H) <150 mg/dL 11/20/2024 3:56 PM EDT [facility] Comment: < 150 Normal 150 - 199 Borderline High 200 - 499 High >= 500 Very High HDL 54 >=40 mg/dL 11/20/2024 3:56 PM EDT [facility] Comment: > 60 Optimal 40 - 60 Acceptable < 40 Low LDL Calculated 132(H) <100 mg/dL 11/20/2024 3:56 PM EDT [facility] Comment: < 100 Optimal 100 - 129 Near or above optimal 130 - 159 Borderline High 160 - 189 High >= 190 Very High The National Institutes of Health (NIH) equation is used for all lipid panels that report calculated LDL (LDL-C). Non-HDL-C Calculated 165(H) <=129 mg/dL 11/20/2024 3:56 PM EDT [facility] Comment: <130 Desirable 130-159 Above Desirable 160-189 Borderline High 190-219 High >= 220 Very High Fasting Specimen? Yes None 025 3:56 PM EDT [facility] Blood VENOUS BLOOD / Unknown Venipuncture / Unknown 11/20/2024 10:54 AM EDT 11/20/2024 10:54 AM EDT Juana Bailey APRN CHEMISTRY ORDERABLES Final Result [facility] [address], [place] [address] * (ABNORMAL) VITAMIN B12/ FOLIC ACID (11/20/2024 10:54 AM EDT) [facility] Vitamin B12 1,375(H) 232 - 1,245 pg/mL 11/20/2024 4:50 PM EDT [facility] [employer] [facility] Folate >16.00 >=4.80 ng/mL 11/20/2024 4:50 PM EDT [facility] [employer] [facility] Blood VENOUS BLOOD / Unknown Venipuncture / Unknown 11/20/2024 10:54 AM EDT 11/20/2024 10:54 AM EDT Narrative [facility] [employer] [facility] - 11/20/2024 4:50 PM EDT Ingestion of omar doses of biotin (>5 mg/day) taken within 8 hours of drawing blood sample can interfere with this immunoassay test. [facility] CHEMISTRY ORDERABLES Final Result Performing Organization Address [facility] de Phone Number [address] , [place] [address] * TSH REFLEX TO FT4 (11/20/2024 10:54 AM EDT) [facility] TSH Reflex 1.690 0.270 - 4.200 mcIU/mL 11/20/2024 3:56 PM EDT [facility] [employer] [facility] Blood VENOUS BLOOD / Unknown Venipuncture / Unknown 11/20/2024 10:54 AM EDT 11/20/2024 10:54 AM EDT Narrative [facility] [facility] - 11/20/2024 3:56 PM EDT Ingestion of omar doses of biotin (>5 mg/day) taken within 8 hours of drawing blood sample can interfere with this immunoassay test. [facility] CHEMISTRY ORDERABLES Final Result Performing Organization Address [facility] Co de Phone Number [facility] [id number] , [place] [address] * VITAMIN D 25 HYDROXY (11/20/2024 10:54 AM EDT) [facility] Vit D 25 OH 74.6 30.0 - [...] EDT 11/20/2024 10:54 AM EDT Juana Bailey DISBURSEMENT CLERK CHEMISTRY ORDERABLES Final Result [facility] [employer] [address] [facility] , [place] [address] * CBC WITH DIFF (11/20/2024 10:54 AM EDT) Pathologist [facility] WBC 8.4 3.7 - 10.3 x10(3)/mcL 11/20/2024 [...] 11/20/2024 3:38 PM EDT [facility] MPV 11.4 8.8 - 12.5 fL 11/20/2024 3:38 PM EDT [facility] Neut Percent 58.5 % 11/20/2024 3:38 PM EDT [facility], [facility] Comment:Neutrophils equals s egs plus bands Imm Gran% 0.5 % 11/20/2024 3:38 PM EDT [facility], [facility] Comment:Automated count of m etamyelocytes, myelocytes and promyelocytes. Lymph Percent 29.9 % 11/20/2024 3:38 PM EDT [facility] [place] Percent 6.9 % 11/20/2024 3:38 PM EDT [facility], [facility] Eos Percent 3.5 % 11/20/2024 3:38 PM EDT [facility], [facility] Baso Percent 0.7 % 11/20/2024 3:38 PM EDT [facility], [facility] Neut # 4.9 1.6 - 6.1 x10(3)/[facility] 11/20/2024 3:38 PM EDT [facility], [facility] Comment:Neutrophils equals s egs plus bands IMMGRAN# 0.0 0.0 - 0.1 x10(3)/[facility] 11/20/2024 3:38 PM EDT [facility], [facility] Comment:Automated count of m etamyelocytes, myelocytes and promyelocytes. An absolute IG <0.1 is reported as 0.0. Lymph # 2.5 1.2 - 3.9 x10(3)/[facility] 11/20/2024 3:38 PM EDT [facility] [place] # 0.6 0.3 - 0.9 x10(3)/mcL 11/20/2024 3:38 PM EDT [facility] Eos# 0.3 0.0 - 0.5 x10(3)/[facility] 11/20/2024 3:38 PM EDT [facility], [facility] Baso # 0.1 0.0 - 0.1 x10(3)/[facility] 11/20/2024 3:38 PM EDT [facility], [facility] Blood VENOUS BLOOD / Unknown Venipuncture / Unknown 11/20/2024 10:54 AM EDT 11/20/2024 10:54 AM EDT Juana Bailey DISBURSEMENT CLERK HEMATOLOGY ORDERABLES Final Result Performing Organization Address [facility] Co de Phone Number [facility] [id number] , [address] [place] [phone] * URIC ACID (11/20/2024 10:54 AM EDT) Uric Acid 4.6 2.4 - 5.7 mg/dL 11/20/2024 3:56 PM EDT [facility] [employer] [facility] Blood VENOUS BLOOD / Unknown Venipuncture / Unknown 11/20/2024 10:54 AM EDT 11/20/2024 10:54 AM EDT Juana Bailey APRN CHEMISTRY ORDERABLES Final Result Performing Organization Address [facility] Phone Number [facility] [employer] , [address] [place] [phone] * (ABNORMAL) HEMOGLOBIN A1C (11/20/2024 10:54 AM EDT) Hgb A1C 5.9(H) 4.2 - 5.6 % 11/20/2024 4:02 PM EDT [facility] [employer], [facility] Est. Avg Glucose 123 mg/dL 11/20/2024 4:02 PM EDT [facility] [employer] [facility] Blood VENOUS BLOOD / Unknown Venipuncture / Unknown 11/20/2024 10:54 AM EDT 11/20/2024 10:54 AM EDT Narrative [facility] [employer] [facility] - 11/20/2024 4:02 PM EDT REFERENCE RANGE: Normal: 4.0-5.6% Pre-diabetes: 5.7-6.4% Provisional diagnosis of diabetes: >6.4% Hgb F>10% and anything which shortens red cell survival, such as hemolytic anemia, or unstable hemoglobin variants such as HbSS, HbSC, or HbCC, will lower the HbA1c value associated with a given level of glycemic control. Juana Bailey DISBURSEMENT CLERK CHEMISTRY ORDERABLES Final Result [facility] [address] [facility] , [place] [address] * (ABNORMAL) COMPREHENSIVE METABOLIC PANEL (11/20/2024 10:54 [...] 3:56 PM EDT [facility] Alk Phos 129(H) 36 - 123 U/L 11/20/2024 3:56 PM EDT [facility], [facility] eGFR (CKD-EPIcr 2020) 90 >=60 mL/min/1.7 3 m2 11/20/2024 3:56 PM EDT [facility], [facility] Comment:Estimated GFR was ca lculated using the CKD-EPIcr (2020) equation refit without race. The equation is recommended by the National Kidney Foundation - [place] [employer] of Nephrology Task Force. Blood VENOUS BLOOD / Unknown Venipuncture / Unknown 11/20/2024 10:54 AM EDT 11/20/2024 10:54 AM EDT Juana Lynn DISBURSEMENT CLERK CHEMISTRY ORDERABLES Final Result Performing Organization Address [facility] Co de Phone Number [address] [place] [address] * MICROALBUMIN/CREATININE RATIO URINE (11/20/2024 10:38 AM EDT) Urine Microalb 68.9 mg/L 11/20/2024 4:46 PM EDT [facility], [facility] Urine Creatinine 284.0 mg/dL 11/20/2024 4:46 PM EDT [facility], [facility] Ur Microalb/Creat 24 0 - 30 mg/g 11/20/2024 4:46 PM EDT [facility], [facility] Urine STRUCTURE OF URINARY TRACT PROPER / Unknown 11/20/2024 10:38 AM EDT 11/20/2024 10:38 AM EDT Juana [place] DISBURSEMENT CLERK URINE ORDERABLES Final Resu lt Performing Organization Address [facility]/ZIP Co de Phone Number [facility] [address] [facility] [place] [address] * URINE CULTURE (NO STAIN) (11/20/2024 10:38 AM EDT) Culture Multiple bacterial species isolated from urine consistent with urogenital commensal organisms. 11/22/2024 7:02 AM EDT [facility] Urine STRUCTURE OF URINARY TRACT PROPER / Unknown 11/20/2024 10:38 AM EDT 11/20/2024 10:38 AM EDT Juana Bailey DISBURSEMENT CLERK MICROBIOLOGY - GENERAL SURESH CALDERON Final Result [facility] [address] [facility] , [place] [address] * (ABNORMAL) SEP URINALYSIS POC (11/20/2024 10:35 [...] EDT 11/20/2024 10:38 AM EDT us Juana Olton DISBURSEMENT CLERK POINT OF CARE TEST ORDERABL ES Final Result [facility] [place] [address] [place], [place] [address] * COLONOSCOPY (11/04/2024 2:28 PM EDT) Anatomical [...] MD Performing Provider IRVIN Lamar CRNA, RN Prescriptionist Bárbara Leyva RN Endoscopy Nurse Medications See [...] AIRWAY PLACEMENT (11/04/2024 2:12 PM EDT) Narrative [facility] - 11/04/2024 2:12 PM EDT Zeb Tamayo CRNA 11/04/2024 2:12 PM Intraop Airway Placement: Date/Time: 11/04/2024 2:12 PM Airway type: Nasal cannula salter Zeb Tamayo CASHIER [facility] [place] ANESTHESIA Final Resul t Performing Organization Address City/[facility] Co de Phone Number [facility] [address] [place] [address] * GLUCOSE METER POC (11/04/2024 1:04 PM EDT) [facility] Glucose Meter POC 73 70 - 100 mg/dL 11/04/2024 1:05 PM EDT [facility] Sample Type Capillary 11/04/2024 1:05 PM EDT [facility] Patient Status Non-Critical Patient 11/04/2024 1:05 PM EDT [facility] Blood BLOOD SPECIMEN / Unknown 11/04/2024 1:04 PM EDT 11/04/2024 1:05 PM EDT Nitin Morgan MD POINT OF CARE TEST ORDERABLE S Final Result Performing Organization Address [facility] de Phone Number [facility] [address] [place], [place] [phone] * MM MAMMO DIGITAL MARCO SCREEN BILAT (08/31/2024 11:36 AM EDT) Anatomical Region Laterality Modality Breast Bilateral Mammography 08/31/2024 11:3 6 AM EDT Impressions 09/08/2024 10:50 AM EDT Negative ([id number]) RECOMMENDATION: Routine Screening Mammogram in 1 Year Bilateral . . COMMENTS: DISCLAIMER *The patient was notified by MyChart or mail of the results for this examination. *The patient's information was entered into a reminder system with a target due date for the next breast imaging, in accordance with the [place] [employer] and the Society of [...] for screening mammogram for malignant neoplasm of [id number] COMPARISON STUDIES: Outside films from [facility] dated 09/26/2020. TISSUE DENSITY: There are scattered areas of fibroglandular density. FINDINGS: No mammographic evidence of malignancy. Procedure Note Allie Higginbotham MD - 09/08/2024 EXAM: MM MAMMO DIGITAL MARCO SCREEN BILAT EXAM DATE: 08/31/2024 11:36 AM INDICATION: Z12.31-Encounter for screening mammogram for malignantneoplasm of [id number] COMPARISON STUDIES: Outside films from [facility] dated09/26/2020. TISSUE DENSITY: There are scattered areas of fibroglandular density. FINDINGS: No mammographic evidence of malignancy. IMPRESSION: Negative ([id number]) RECOMMENDATION: Routine Screening Mammogram in 1 Year Bilateral . . COMMENTS: DISCLAIMER *The patient was notified by MyChart or mail of the results for this examination. *The patient's information was entered into a reminder system with atarget due date for the next breast imaging, in accordance with the [place] [employer] and the Society of Breast Imaging recommendations. *Breast Imaging has a false negative rate of 15%. *Any patient with a palpable abnormality, unexplained by breast imaging,should be managed on a clinical basis by the attending physician. Juana Bailey APRN IM MAMMOGRAPHY ORDERABLES Final Result * OBEDIENCE TRAINER CYTOLOGY REQUEST (PAP ONLY) (05/22/2023 9:58 AM EST) CASE REPORT Gynecologic Cytology Report Case: [id number] Authorizing Provider: Juana Bailey APRN Collected: 05/22/2023 0958 Ordering Location: [facility] Received: 05/22/2023 0958 First Screen: Jose Douglas CT Specimen: LIQUID-BASED PAP - CERVICAL/ENDOCERV ICAL, Cervix, Endocervical 05/25/2023 1:17 PM EST [facility] PAP FINAL DIAGNOSIS Negative for intraepithelial lesion or malignancy 05/25/2023 1:17 PM EST [facility] at 1317 EST MICROSCOPIC DESCRIPTION Microscopic examination is performed and the findings corroborate the diagnosis. 05/25/2023 1:17 PM EST [facility] PAP SMEAR ADEQUACY Satisfactory for evaluation 05/25/2023 1:17 PM EST [facility] HOSPITAL PAP ORGANISMS NOTED Shift in claus suggestive of bacterial vaginosis. 05/25/2023 1:17 PM EST [facility] ENDOCERVICAL T-ZONE Transformation Zone Absent. This is not unusual in a post-menopausal woman. 05/25/2023 1:17 PM EST [facility] EMBEDDED IMAGES 1:17 PM EST [facility] PAP DISCLAIMER The Pap Smear is a screening test that aids in the detection of cervical cancer and cancer precursors. Both false positive and false negative results can occur. The test should be used at regular intervals, and positive results should be confirmed before definitive therapy. Processed using the ThinPrep Automatic Log Cut Off Sawyer Automated cytology screening device ([employer]). 05/25/2023 1:17 PM [facility] Thin Prep ENDOCERVICAL STRUCTURE / Unknown 05/22/2023 9:58 AM EST 05/22/2023 9:58 AM EST us Juana Bailey DISBURSEMENT CLERK CYTOLOGY ORDERABLES Final R esult [facility] [address] [place] [address] * DIABETES EYE EXAM (02/20/2022 8:43 AM EST) Left Diabetic Retinopathy Not Present Present/Not Present SEP OFFICE Right Diabetic Retinopathy Not Present Present/Not Present SEP OFFICE us Historical Provider Generic HEALTH MAINTENANCE E dited Result - Final SEP OFFICE from Last 3 Months or Most Recently Relevant to Health Maintenance Insurance [facility] [place] [address] [facility] [place] Care Teams Raw Juice Weigher Relationship Specialty Start Date End Date Juana [place] [address] [place] [address] PCP - General Nurse Practitioner-Family 08/29/22
--- OUTSIDE RECORDS SUMMARY | 2025-01-28 18:21 | XMS_ITS | Encounter Summary ---
Author Organization [place] [address] Care Team Providers Care Yard General Car Supervisor Name Role Phone Juana Bailey APRN Primary Care Provider [phone] Reason for Visit * Reason Onset Date Comments Relaying Information 11/27/2024 Pt. Has a q uestion about a medication that she is supposed to stop taking for a few weeks and is confused on which medication that it is. Please call Pt. To clarify. Encounter Details Date Type Department Care Team (Late st Contact Info) Description 11/27/2024 Telephone [facility] [address] [place] [address] Juana Bailey APRN [address] [facility] [place] [place] [address] Relaying Information (Pt. Has [...] Date Recorded PHQ-2 Total Score 0 11/20/2024 [facility] [place] of Occupat ional Health - Occupational Stress [...] on filedocumented in this encounter Care Teams Yard General Car Supervisor Relationship Specialty Start Date End Date Juana Bailey APRN [address] [place] [address] PCP - General Nurse Practitioner-Family 08/29/22 documented as of this encounter
--- OUTSIDE RECORDS SUMMARY | 2025-01-28 18:21 | XMS_ITS | Encounter Summary ---
Author Organization [place] [address] Care Team Providers Care Athletic Agent Name Role Phone Juana Bailey APRN Primary Care Provider [phone] Reason for Visit * Reason Onset Date Comments Results 12/11/2024 BMP Encounter Details Date Type Department Care Team (Late st Contact Info) Description 12/11/2024 Results Follow-Up SEP Nati [address] [place] [address] Juana Bailey APRN [address] [place] [address] BASIC METABOLIC PANEL Social History Tobacco Use Types Packs/Day Years Used Date Smoking Tobacco: Never Smokeless Tobacco: Current Snuff Alcohol Use Standard Drinks/Week Comments Not Currently 0 (1 standard drink = 0.6 oz pur e alcohol) Overall Financial Resource Strain ([facility]) Answe r Date Recorded How hard is it for you to pa y for the very basics like food, housing, medical care, and heating? Not very hard 03/05/2023 PHQ-2 Answer Date Recorded PHQ-2 Total Score 0 11/20/2024 [facility] [place] of Occupat ional Health - Occupational Stress [...] Telephone Encounter - Tyrone Major RMA - 12/15/2024 9:15 AM EDT Select the most appropriate reason for this telephone message: Patient Calling for Results Patient called for results on Lab BMP Which Provider ordered the test? Juana Bailey APRN Date of test: 12/11/24 Advised patient of: see below result. Patient Instructions/ Questions: Patient voices understanding. Medications Ordered/Pended (if yes, list medication): N/A Medications/Orders Needed (if yes, list orders): N/A Pharmacy Location Verified: No Other: Please put in the patient results note that patient is aware of the following results Juana Bailey APRN 12/11/2024 5:02 PM EDT Repeat BMP ok. documented in this encounter Plan of Treatment [...] on filedocumented in this encounter Care Teams Athletic Agent Relationship Specialty Start Date End Date Juana Bailey APRN [address] [place] [address] PCP - General Nurse Practitioner-Family 08/29/22 documented as of this encounter
[2025-01-28 18:22] LABS: Coronavirus 19, PCR Not Detected (NotDetected); Influenza A, PCR Not Detected (NotDetected); Influenza B, PCR Not Detected (NotDetected)
[2025-01-28 18:34] LABS: Strep Scrn Group A (Rapid) Negative (Negative)
--- NOTE | 2025-01-28 20:02 | PC.NURSE ---
attempt made to call patient into triage for updated vitals. patient not in the lobby at this time. will attempt again in 5 minutes.
--- NOTE | 2025-01-28 20:18 | PC.NURSE ---
another attempt made to bring patient into triage for vital sign check. patient not in lobby. patient LEFT WITHOUT BEING SEEN
== END 2025-01-28 20:20 | disposition left against medical advice (07) ==
LOC: ER 18:19
PROVIDERS: Emergency Provider Student in an Organized Health Care Education/Training Program; PCP Nurse Practitioner
DX: R06.02 Shortness of breath (principal); B34.9 Viral infection, unspecified
CPT/HCPCS: 87430; 87636; 99282

== ENCOUNTER 2025-03-17 15:01 | Outpatient (CLI) | payer OTHER, SELFPAY ==
--- OUTSIDE RECORDS SUMMARY | 2025-01-29 12:30 | XMS_ITS | Encounter Summary ---
Author Organization [place] [address] Care Team Providers Care Piano Assembler Name Role Phone LynnJuana lemon ZAHRA Primary Care Provider Reason for Visit * Reason Comments Congestion Headache Cough Shortness of Breath x2 days Encounter Details Date Type Department Care Team (Late st Contact Info) Description 01/29/2025 1:30 PM EDT Office Visit [facility] [place] [facility] [place] [id number] Endy Ramirez MD [address] [facility] [place] [address] Acute bacterial sinusitis (Primary Dx); Cough, unspecified type; Migraine without aura and without status migrainosus, not intractable Social History Tobacco Use Types Packs/Day Years Used Date Smoking Tobacco: Never Smokeless Tobacco: Current Snuff Tobacco Cessation:Ready to Q uit: Not Asked; Counseling Given: Not Answered Alcohol Use Standard Drinks/Week Comments Not Currently 0 (1 standard drink = 0.6 oz pur e alcohol) Overall Financial Resource Strain (CARDIA) [place] r Date Recorded How hard is it for you to pa y for the very basics like food, housing, medical care, and heating? Not very hard 03/05/2023 PHQ-2 Answer Date Recorded PHQ-2 Total Score 0 11/20/2024 [facility] [place] of Occupat ional Health - Occupational Stress [...] Sign Reading Time Taken Comments Blood Pressure 110/67 01/29/2025 1:08 PM EDT Pulse 95 01/29/2025 1:08 PM EDT Temperature 36.7 C (98 F) 01/29/2025 1:08 PM EDT Respiratory Rate 18 01/29/2025 1:08 PM EDT Oxygen Saturation 98% 01/29/2025 1:08 PM EDT Inhaled Oxygen Concentration - - Weight 92.1 kg (203 lb) 01/29/2025 1:08 PM EDT Height 165.1 cm (5' 5 ) 01/29/2025 1:08 PM EDT Body Mass Index 33.78 01/29/2025 1:08 PM EDT documented in this encounter Functional [...] Refills Last Filled Start Date End Date SUMAtriptan (IMITREX) 100 mg Oral TabletIndications: Migraine without aura and without status migrainosus, not intractable Take 1 Tablet by mouth daily as needed for Migraine. 8 Tablet 2 01/29/2025 ipratropium (ATROVENT) 21 mcg (0.03 %) Nasl [place], Non-AerosolIndicat ions:Acute bacterial sinusitis 2 Sprays by Nasal route 3 times daily. 30 mL 2 01/29/2025 benzonatate (TESSALON) 100 mg Oral CapsuleIndications :Cough, unspecified type Take 1 Capsule by mouth 3 times daily as needed for Cough for up to 10 days. 30 Capsule 01/29/2025 5 amoxicillin-clavul anate (AUGMENTIN) 875-125 mg Oral TabletIndications: Acute bacterial sinusitis Take 1 Tablet by mouth every 12 hours for 7 days. 14 Tablet 01/29/2025 5 documented in this encounter Progress Notes * Endy Ramirez MD - 01/29/2025 1:30 PM EDT Assessment & Plan Acute bacterial sinusitis Orders: amoxicillin-clavulanate (AUGMENTIN) 875-125 mg Oral Tablet; Take 1 Tablet by mouth every 12 hours for 7 days. ipratropium (ATROVENT) 21 mcg (0.03 %) [place], Non-Aerosol; 2 Sprays by Nasal route 3 times daily. Will treat acute bacterial sinusitis with antibiotics and decongestant nasal spray follow-up as needed. Cough, unspecified type Orders: benzonatate (TESSALON) 100 mg Oral Capsule; Take 1 Capsule by mouth 3 times daily as needed for Cough for up to 10 days. Migraine without aura and without status migrainosus, not intractable Orders: SUMAtriptan (IMITREX) 100 mg Oral Tablet; Take 1 Tablet by mouth daily as needed for Migraine. Chronic migraines not well-controlled with NSAIDs. Will trial Imitrex and follow-up response at next visit Progress Note: Vitals: 01/29/25 1308 BP: 110/67 Pulse: 95 Resp: 18 Temp: 98 ??F (36.7 ??C) TempSrc: Temporal SpO2: 98% Weight: 203 lb (92.1 kg) Height: 5' 5 (1.651 m) Body mass index is 33.78 kg/m??. SUBJECTIVE: Chief Complaint Patient presents with Congestion Headache Cough Shortness of Breath x2 days HPI: She has a 1 week history of worsening cough congestion sinus pressure and sinus pain. She went to an outside hospital and had COVID flu testing done which was negative. She walked out before being prescribed/treated for the condition. No measured fevers. She does feel somewhat short of breath. In addition to that she has issues with chronic migraines. Typically has migraines a few days per month. No vision changes associated with her migraines. She has tried NSAIDs with minor improvement of hermigraines but no resolution. Wants to be prescribed something else for abortive therapy for migraines. Review of Systems Constitutional: Positive for activity change and chills. Negative for fatigue and fever. HENT: Positive for congestion, rhinorrhea, sinus pressure and sinus pain. Negative for sore throat and voice change. Respiratory: Positive for cough. Negative for shortness of breath and wheezing. Gastrointestinal: Negative for diarrhea, nausea and vomiting. Neurological: Positive for headaches. OBJECTIVE: Physical Exam Vitals reviewed. Constitutional: General: She is not in acute distress. Appearance: She is not ill-appearing, toxic-appearing or diaphoretic. HENT: Head: Comments: Sinus tenderness Right Ear: Tympanic membrane normal. Left Ear: Tympanic membrane normal. Nose: Congestion and rhinorrhea present. Mouth/Throat: Pharynx: Posterior oropharyngeal erythema present. No oropharyngeal exudate. Cardiovascular: Rate and Rhythm: Normal rate and regular rhythm. Pulses: Normal pulses. Pulmonary: Effort: Pulmonary effort is normal. No respiratory distress. Breath sounds: No wheezing, rhonchi or rales. Skin: Findings: No rash. Neurological: Mental Status: She is alert. documented in this encounter Plan of Treatment Not on file documented as of this encounter Goals Goal Patient Goal Type Associated Problems Recent Progress Patient-Stated? Author Blood Pressure < 140/90 Blood Pressure 126/82(2024 4:26 PM EST) No Juana Bailey APRN Maintain a healthy diet, exercise regularly and maintain an ideal body weight General No Noelle Yeh RMA BMI (Calculated) < 30 General 33.4(03/12/20 4:26 PM EST) No Juana Bailey APRN Stay Tobacco Free Lifestyle No Juana Bailey APRN HEMOGLOBIN A1C < 7.0 Result Component 5.9( 10:54 AM EDT) No Juana Bailey APRN documented as of this encounter Procedures Procedure Name Priority Date/Time Associated Diagnosis Comments SCANNED LABS 02/04/2025 10:05 PM EDT SCANNED LABS 02/02/2025 8:26 PM EDT documented in this encounter Results * SCANNED LABS (02/04/2025 10:05 PM EDT) 02/04/2025 10:0 5 PM EDT us Unknown Provider HEMATOLOGY ORDERABLES Final Res ult * SCANNED LABS (02/02/2025 8:26 PM EDT) 02/02/2025 8:26 PM EDT us Unknown Provider HEMATOLOGY ORDERABLES Final Res ult documented in this encounter Visit Diagnoses Diagnosis Acute bacterial sinusitis- Primary Acute sinusitis, unspecified Cough, unspecified type Migraine without aura and without status migrainosus, not intractable Migraine without aura, without mention of intractable migraine without mention of status migrainosus documented in this encounter Care Teams Piano Assembler Relationship Specialty Start Date End Date Juana Bailey APRN [address] [place] [address] PCP - General Nurse Practitioner-Family 08/29/22 documented as of this encounter
--- OUTSIDE RECORDS SUMMARY | 2025-02-25 11:00 | XMS_ITS | Encounter Summary ---
Author Organization [place] [address] Care Team Providers Care Leveler Name Role Phone Juana Bailey ZAHRA Primary Care Provider Reason for Visit * Reason Comments Urinary Frequency Pain with urination x3-4 days Encounter Details Date Type Department Care Team (Latest Contact Info) Description 02/25/2025 11:00 AM EST Office Visit ASHELY [place] [facility] [place] [address] Endy Ramirez MD [address] [facility] [place] [place] [address] UTI (urinary tract infection), uncomplicated (Primary [...] Date Recorded PHQ-2 Total Score 0 11/20/2024 [facility] [place] of Occupat ional Health - Occupational Stress [...] The provider educated the patient (or legal medical billing representative) on the use of the ambient listening artificial intelligence tool, Tagasauris. They were informed that this AI tool [...] of such information, the patient (or legal medical billing representative), and each individual in attendance with [...] 5.9( 10:54 AM EDT) No Lynn, Juana, DRESSAGE INSTRUCTOR documented as of this encounter Procedures [...] Growth(A) 02/27/2025 11:20 AM EST PREFERRED LAB docplanner, [employer] Culture 10,000 CFU/mL Escherichia coli SUSCEPTIBI LITY RESULT 02/27/2025 11:20 AM EST PREFERRED [employer] Urine STRUCTURE OF URINARY TRACT PROPER / [...] GENERAL ORDERAB LES Final Result PREFERRED LAB docplanner, [employer] [address] [facility] , [place] [place] [address] * (ABNORMAL) SEP URINALYSIS POC (02/25/2025 10:32 [...] TEST ORDERABLES Final Result SEP MARILYN [address] [place] [address] documented in this encounter Visit Diagnoses Diagnosis UTI (urinary tract infection), uncomplicated- Primary Urinary tract infection, site not specified documented in this encounter Care Teams Leveler Relationship Specialty Start Date End Date Juana Bailey APRN [address] [place] [address] PCP - General Nurse Practitioner-Family 08/29/22 documented as of this encounter
--- OUTSIDE RECORDS SUMMARY | 2025-03-12 16:30 | XMS_ITS | Encounter Summary ---
Author Organization [place] [address] Care Team Providers Care Vegetable Grader Name Role Phone Juana Bailey ZAHRA Primary Care Provider +1- [phone] Reason for Visit * Reason Comments Hip Pain Encounter Details Date Type Department Care Team (Late st Contact Info) Description 03/12/2025 4:30 PM EST Office Visit SEP Nati [address] [place] [phone] Endy Ramirez MD [address] [facility] [place] [address] Rib injury (Primary Dx); Hip injury, [...] Date Recorded PHQ-2 Total Score 0 11/20/2024 [facility] [place] of Occupat ional Health - Occupational Stress [...] encounter documented in this encounter Care Teams Vegetable Grader Relationship Specialty Start Date End Date Juana Bailey [place] [place] [address] PCP - General Nurse Practitioner-Family 08/29/22 documented as of this encounter
--- NOTE | 2025-03-17 | XR_ITS ---
FINAL REPORT CLINICAL HISTORY: PAIN, .Fall 03/10, pain rt side FINDINGS: An AP view of the pelvis and a frog leg view of the right hip were obtained. There is no prior exam for comparison. There is no acute fracture or dislocation. There is degenerative joint disease and ngtgu-[id number]-[id number]-left hips. Remaining osseous pelvis is without acute abnormality. Soft tissues are unremarkable. IMPRESSION: No acute osseous abnormality of the right hip. Degenerative joint disease. Reviewed, Interpreted and Dictated by Poornima Damian MD Transcribed by Jeni Giraldo Authenticated and [facility]
--- NOTE | 2025-03-17 | XR_ITS ---
FINAL REPORT CLINICAL HISTORY: .Fall 03/10, pain rt side FINDINGS: A PA view of the chest and oblique views of the right ribs were obtained. There is no prior exam for comparison. The cardiac and mediastinal silhouettes are within normal limits. The lungs are clear. There is no pneumothorax. Oblique views of the right ribs reveal no displaced rib fracture. IMPRESSION: No acute right rib fracture and no pneumothorax. Reviewed, Interpreted and Dictated by Poornima Damian MD Transcribed by Jeni Giraldo Authenticated and [facility]
--- NOTE | 2025-03-17 | XR_ITS ---
FINAL REPORT CLINICAL HISTORY: ..Fall 03/10, pain rt side COMPARISON: 12/07/2024 FINDINGS: AP and lateral views of the thoracic spine were obtained. No acute fracture or acute malalignment. There are changes from posterior fusion at T9-10. The hardware is intact and unchanged. Alignment is normal in the sagittal plane. There is mild scoliosis. Multilevel degenerative disc disease appears similar to the prior study. No acute paraspinal abnormality. IMPRESSION: No acute osseous abnormality of the thoracic spine. Chronic changes as above. Reviewed, Interpreted and Dictated by Poornima Damian MD Transcribed by Jeni Giraldo Authenticated and [facility]
--- OUTSIDE RECORDS SUMMARY | 2025-03-17 15:04 | XMS_ITS | Encounter Summary ---
Author Organization [place] [address] Care Team Providers Care Health Science Instructor Name Role Phone Juana Bailey APRN Primary Care Provider +1- [phone] Reason for Visit * Reason Onset Date Comments Medication Management 01/04/2025 CPASFYI: P harmacy change per patient request, verified original Rx is cancelled, Rx resent to requested pharmacy.No further workup needed. Thank you. Encounter Details Date Type Department Care Team (Late st Contact Info) Description 01/04/2025 Telephone SEP Nati PATEL [address] [place] [address] Juana Bailey APRN [address] [facility] [place] [address] Medication Management (CPASFYI: Pharmacy change per [...] Date Recorded PHQ-2 Total Score 0 11/20/2024 [facility] [place] of Occupat ional Health - Occupational [...] encounter details CC spoke with Sabrina at [facility] and confirmed the following Rx has been cancelled. Per pt request, Rx re-sent to: [facility] - [place] [address] - [address] [address] [address] - [phone] [[id number]] Is medication requested to be corrected prescribed from hospitalist/ER Physician?: No Last appointment date: 01/01/25 Pharmacy: [facility] [place] [address] - [address] [address] [address] [phone] [[id number]] Return Method of Communication: N/A Additional Information: [...] documented as of this encounter Care Teams Health Science Instructor Relationship Specialty Start Date End Date Juana Bailey APRN [address] [place] [address] PCP - General Nurse Practitioner-Family 08/29/22 documented as of this encounter
--- OUTSIDE RECORDS SUMMARY | 2025-03-17 15:04 | XMS_ITS | Encounter Summary ---
Author Organization [place] [address] Care Team Providers Care Outside Barrel Lathe Operator Name Role Phone Juana Bailey APRN Primary Care Provider +1- [phone] Reason for Visit * Reason Onset Date Comments Other 02/22/2025 Call back Patient Returning Call 02/22/2025 Calling b ack Encounter Details Date Type Department Care Team (Late Contact Info) Description 02/22/2025 Telephone SEP Nati [address] [place] [address] Juana Bailey APRN [address] [facility] [place] [address] Other (Call back); Patient Returning Call (Calling back ) Social History Tobacco Use Types Packs/Day [...] Date Recorded PHQ-2 Total Score 0 11/20/2024 [facility] [place] of Occupat ional Health - Occupational Stress [...] Assessment Author No 11/20/2024 10:18 AM EDT Socrates, Sarah Yvonne, CCMA * Does this person have [...] Refills Last Filled Start Date End Date hydrOXYzine (VISTARIL) 25 mg Oral Capsule Take 1 Capsule by mouth 3 times daily as needed. 30 Capsule 02/23/2025 documented in this encounter Miscellaneous Notes * Telephone Encounter - Juana Bailey APRN - 02/23/2025 12:42 PM EST Pt called to let us know her grand-daughter lost her baby. Having a lot of anxiety. Requesting something to pharmacy. * Telephone Encounter - Tyrone Major RMA - 02/23/2025 10:38 AM EST Select the most appropriate reason for this telephone message: Patient Returning Call Reason for call: calling back Return Method of Communication: Phone Call Information relayed to patient: sending message to the office for a call back Patient has additional questions: Yes (list questions), Is wanting to speak with PCP directly Further action needed: Yes Additional Information: Attempt to warm transfer unsuccessful, please advise patient thank you. * Telephone Encounter - Sarah Crowell CCMA - 02/23/2025 8:20 AM EST LMTRC * Telephone Encounter - Lalita Mckenzie - 02/22/2025 11:30 AM EST Select the most appropriate reason for this telephone message: Other Who is calling: Patient Return Method of Communication: Phone Call What is needed OR why are they calling: per pt stating needs a call back from the nurse with the long hair , pt did not elaborate When is this needed by: dona Where does this information need to go: n/a Additional information:N/A documented in this encounter Plan of Treatment Not on file documented as of this encounter Goals Goal Patient Goal Type Associated Problems Recent Progress Patient-Stated? Author Blood Pressure < 140/90 Blood Pressure 126/82(2024 4:26 PM EST) No [place] Beach[place]ana, BOTTOM BLEACHER Maintain a healthy diet, exercise regularly and maintain an ideal body weight General No Noelle Yeh RMA BMI (Calculated) < 30 General 33.4(03/12/20 4:26 PM EST) No Lynn, Juana, BOTTOM BLEACHER Stay Tobacco Free Lifestyle No LynnArnoldoJuana, BOTTOM BLEACHER HEMOGLOBIN A1C < 7.0 Result Component 5.9( 10:54 AM EDT) No Juana Bailey BOTTOM BLEACHER documented as of this encounter Visit Diagnoses Not on filedocumented in this encounter Care Teams Outside Barrel Lathe Operator Relationship Specialty Start Date End Date Juana Bailey APRN [address] [place] [address] PCP - General Nurse Practitioner-Family 08/29/22 documented as of this encounter
--- OUTSIDE RECORDS SUMMARY | 2025-03-17 15:04 | XMS_ITS | Encounter Summary ---
Author Organization [place] [address] Care Team Providers Care Lost Charge Card Clerk Name Role Phone Juana Bailey APRN Primary Care Provider +1- [phone] Reason for Visit * Reason Onset Date Comments Other 03/15/2025 Needing xray ord ers signed Relaying Information 03/15/2025 xray Encounter Details Date Type Department Care Team (Late st Contact Info) Description 03/15/2025 Telephone SEP Nati [address] [place] [address] Juana Bailey APRN [address] [facility] [place] [address] Other (Needing xray orders signed); Relaying Information (xray) Social History Tobacco Use Types Packs/Day Years [...] Date Recorded PHQ-2 Total Score 0 11/20/2024 [facility] [place] of Occupat ional Health - Occupational Stress [...] Telephone Encounter - Teresa Forrester RMA - 03/17/2025 11:34 AM EST Select the most appropriate reason for this telephone message: Relaying Information Relaying Information Who is Calling: Patient Return Method of Communication:Phone call What information is the caller relaying: xrays faxed to [facility] Further action needed: No Additional Information:na * Telephone Encounter - Hafsa Phillips MA - 03/16/2025 8:56 AM EST xrays faxed to [facility] * Telephone Encounter - Juana Bailey APRN - 03/15/2025 5:35 PM EST Seen by Dr. Ramirez. Can you please get the xray order sent for her? Thanks! * Telephone Encounter - Hattie Henderson MA - 03/15/2025 11:21 AM EST Select the most appropriate reason for this telephone message: Other Who is calling: Patient Return Method of Communication: Phone Call What is needed OR why are they calling: Pt states she was at [facility] to have xray performed and notes xray were not released to have performed. Pt was not able to provide fax number at time of call. When is this needed by: dona Where does this information need to go: Endy Ramirez MD Additional information: Please Advise Patient/Caller, thank you. documented in this encounter Plan of [...] on filedocumented in this encounter Care Teams Lost Charge Card Clerk Relationship Specialty Start Date End Date Juana Bailey APRN [address] [address] PCP - General Nurse Practitioner-Family 08/29/22 documented as of this encounter
--- OUTSIDE RECORDS SUMMARY | 2025-03-17 15:05 | XMS_ITS | Encounter Summary ---
Author Organization [place] [address] Care Team Providers Care Principal Secretary Name Role Phone Juana Bailey APRN Primary Care Provider +1- [phone] Reason for Visit * Reason Comments Medication Refill Encounter Details Date Type Department Care Team (Late st Contact Info) Description 02/28/2025 Refill SEP Nati [address] [place] [phone] Juana Bailey APRN [address] [facility] [place] [address] Medication Refill Social History Tobacco Use Types Packs/Day Years Used Date Smoking Tobacco: Never Smokeless Tobacco: Current Snuff Alcohol Use Standard Drinks/Week Comments Not Currently 0 (1 standard drink = 0.6 oz pur e alcohol) Overall Financial Resource Strain ([facility]) Answe r Date Recorded How hard is it for you to pa y for the very basics like food, housing, medical care, and heating? Not very hard 03/05/2023 PHQ-2 Answer Date Recorded PHQ-2 Total Score 0 11/20/2024 [facility] [place] of Occupat ional Health - Occupational [...] ONE TIME PER WEEK 4 Capsule 5 03/01/2025 documented in this encounter Plan of Treatment [...] CAPSULE BY MOUTH ONE TIME PER WEEK 08/24/2024 03/01/2025 documented as of this encounter Care Teams Principal Secretary Relationship Specialty Start Date End Date Juaan Bailey APRN [address] [place] [address] PCP - General Nurse Practitioner-Family 08/29/22 documented as of this encounter
--- OUTSIDE RECORDS SUMMARY | 2025-03-17 15:05 | XMS_ITS | Encounter Summary ---
Author Organization [place] [address] Care Team Providers Care Procurement Technician Name Role Phone Juana Bailey APRN Primary Care Provider +1- [phone] Reason for Visit * Reason Onset Date Comments Medication Management 03/04/2025 CPASFYI: V erified Rx was already picked up by pt. No further workup needed. Thank you. Encounter Details Date Type Department Care Team (Late st Contact Info) Description 03/04/2025 Telephone SEP Nati PATEL [address] [place] [address] Juana Bailey APRN [address] [facility] [address] Medication Management (CPASFYI: Verified Rx was already picked up by pt. No further workup needed. Thank you./) Social History [...] Date Recorded PHQ-2 Total Score 0 11/20/2024 [facility] - Occupational Stress Questionnaire Answer Date [...] Sarah Polanco CCMA documented in this encounter Miscellaneous Notes * Telephone Encounter - Luh Webb MA - 03/04/2025 1:06 PM EST Select the most appropriate reason for this telephone message: Medication Management/Problem Who is calling: Patient Return Method of Communication: N/A What medication(s) do you have concerns about: cephALEXin (KEFLEX) 500 mg Oral Capsule 21 Capsule 0 03/01/2025 03/08/2025 Sig - Route: Take 1 Capsule by mouth every 8 hours for 7 days. - Oral Prescribing provider: Dr. Endy Ramirez What are your concerns/request: Pt called again stating she did not get this Rx. Pt says pharmacy keeps telling her they didn't receive Rx. Desired outcome: Direct Contact - see encounter details CC spoke with Sarah again at [facility] & confirmed Rx was received on 03/01/25 and pt picked up same day at 4:48 pm. Pt informed pt bottle will say Cephalexin because that is the generic for Keflex. Pt put her daughter Star on the phone who confirmed pt does have the Rx. Is medication requested to be corrected prescribed from hospitalist/ER Physician?: No Last appointment date: 02/25/25 Pharmacy: [facility] - [place] [address] - [address] [address] [address] - [phone] [address] [address] [place] [address] LALY #: -- Additional Information: FYI: No further work up routing to dick as completed. Thank you. * Telephone Encounter - Luh Webb MA - 03/04/2025 12:13 PM EST Select the most appropriate reason for this telephone message: Medication Management/Problem Who is calling: Patient Return Method of Communication: N/A What medication(s) do you have concerns about: cephALEXin (KEFLEX) 500 mg Oral Capsule 21 Capsule 0 03/01/2025 03/08/2025 Sig - Route: Take 1 Capsule by mouth every 8 hours for 7 days. - Oral Prescribing provider: Dr. Endy Ramirez What are your concerns/request: Pt says pharmacy didn't receive Rx. Desired outcome: Direct Contact - see encounter details CC spoke with Sarah at [facility] & confirmed pt already picked up Rx on 03/01/25. Pt swears she didn't pick it up, but will double check what she has at home. Is medication requested to be corrected prescribed from hospitalist/ER Physician?: No Last appointment date: 02/25/25 Pharmacy: [facility] - [place] [address] - [address] - [phone] [place] [address], [place] [address] LALY #: -- Additional Information: FYI: No further work up routing to dick as completed. Thank you. documented in this encounter Plan [...] Yeh, JUAN BMI (Calculated) < 30 General 33.4(03/12/20 25 4:26 PM EST) No Juana Bailey APRN Stay Tobacco Free Lifestyle No Juana Bailey APRN HEMOGLOBIN A1C < 7.0 Result Component 5.9( 5 10:54 AM EDT) No Juana Bailey APRN documented as of this encounter Visit Diagnoses Not on filedocumented in this encounter Care Teams Procurement Technician Relationship Specialty Start Date End Date Juana Bailey APRN [address] [place] [address] PCP - General Nurse Practitioner-Family 08/29/22 documented as of this encounter
--- OUTSIDE RECORDS SUMMARY | 2025-03-17 15:05 | XMS_ITS | Clinical Summary ---
[facility] Address [address] [place] [address] Care Team Providers Care Chief Medical Officer Name Role Phone Klarissa Napier UNIX SYSTEMS ADMINISTRATOR Primary Care Provider +1- [phone] Social History Tobacco Use Types Packs/Day Years [...] 02/13/2022 HEPATITIS C SCREENING 02/13/2022 INFLUENZA VACCINE 11/13/2024 01/15/2019 Care Teams Chief Medical Officer Relationship Specialty Start Date End Date Klarissa Napier APRN [address] [place] [address] PCP - General 11/25/14
--- OUTSIDE RECORDS SUMMARY | 2025-03-17 15:05 | XMS_ITS | Encounter Summary ---
Author Organization [place] [address] Care Team Providers Care Children'S Librarian Name Role Phone Juana Bailey APRN Primary Care Provider [phone]- [phone] Encounter Details Date Type Department Care Team (Late st Contact Info) Description 11/24/2024 Results Follow-Up SEP Nati [address] [place] [address] Juana Bailey APRN [address] [place] [id number] MICROALBUMIN/CREATIN INE RATIO URINE, URINE CULTURE (NO [...] Date Recorded PHQ-2 Total Score 0 11/20/2024 [facility] of Occupat ional Health - Occupational Stress [...] 12/11/2024 4:32 PM EDT [facility] Potassium 3.7 3.5 - 5.0 mmol/L 12/11/2024 4:32 PM EDT [facility] Chloride 104 98 - 107 mmol/L 12/11/2024 4:32 PM EDT [facility] Total CO2 22 22 - 29 mmol/L 12/11/2024 4:32 PM EDT [facility] Anion Gap 13 7 - 16 mmol/L 12/11/2024 4:32 PM EDT [facility] Calcium 9.7 8.6 - 10.4 mg/dL 12/11/2024 4:32 PM EDT [facility] Glucose Lvl 86 70 - 99 mg/dL 12/11/2024 4:32 PM EDT [facility] BUN 16 6 - 20 mg/dL 12/11/2024 4:32 PM EDT [facility] Creatinine 0.73 0.51 - 1.30 mg/dL 12/11/2024 4:32 PM EDT [facility] eGFR (CKD-EPIcr 2020) 96 >=60 mL/min/1.7 3 m2 12/11/2024 4:32 PM EDT [facility] Comment:Estimated GFR was ca lculated using the CKD-EPIcr (2020) equation refit without race. The equation is recommended by the National Kid[employer] - [place] [employer] Neph[employer] Task Force. Blood VENOUS BLOOD / Unknown Venipuncture / Unknown 12/11/2024 10:15 AM EDT 12/11/2024 10:15 AM EDT Juana Bailey PAPER CUP HANDLE MACHINE OPERATOR CHEMISTRY ORDERABLES Final Result [facility] [address] [place] [address] documented in this encounter Visit Diagnoses Diagnosis Type 2 diabetes mellitus with hyperlipidemia (HCC)- Primary Dyslipidemia Other and unspecified hyperlipidemia ASHD (arteriosclerotic heart disease) Coronary atherosclerosis of unspecified type of vessel, saxman or graft Hypokalemia Hypopotassemia documented in this [...] documented as of this encounter Care Teams Children'S Librarian Relationship Specialty Start Date End Date Juana Bailey APRN [address] [place] [address] PCP - General Nurse Practitioner-Family 08/29/22 documented as of this encounter
--- OUTSIDE RECORDS SUMMARY | 2025-03-17 15:05 | XMS_ITS | Encounter Summary ---
Author Organization [place] [address] Care Team Providers Care Trailer Assembler Name Role Phone Juana Bailey APRN Primary Care Provider [phone]- [phone] Reason for Visit * Reason Onset Date Comments Prior Authorization 02/18/2025 PA status ne eded on Ozempic- please call to update pt Encounter Details Date Type Department Care Team (Late st Contact Info) Description 02/18/2025 Telephone SEP Nati PATEL [address] [place] [address] Juana Bailey APRN [address] [place] [address] Prior Authorization (PA status needed on Ozempic- please call to update pt) Social History Tobacco Use Types Packs/Day Years [...] Date Recorded PHQ-2 Total Score 0 11/20/2024 [facility] of Occupat ional Health - Occupational Stress [...] Telephone Encounter - Sarah Crowell CCMA - 02/18/2025 3:04 PM EST Approval received, pt notified * Telephone Encounter - Sarah Crowell CCMA - 02/18/2025 10:52 AM EST Sent to plan * Telephone Encounter - Heide Young - 02/18/2025 10:32 AM EST Select the most appropriate reason for this telephone message: Prior Authorization Request Who is Calling: Patient Return Method of Communication: Phone Call What is the Prior Auth for: Medication Medication name/Dosage/ Frequency: Disp Refills Start End semaglutide (OZEMPIC) 2 mg/dose (8 mg/3 mL) SubQ Pen Injector 3 mL 11 01/21/2025 -- Sig - Route: Inject 2 mg under the skin once a week. - Subcutaneous . Did the pharmacy suggest an alternate medication: No. Pharmacy Name & Location: [facility] - [place] [id number] - [address] [address] s - [phone] Is the patient???s insurance plan that is on file up to date: Yes Informed patient that prior authorizations can take up to 10 business days for response: yes Additional Information: Patient called to get updated status of her PA on this. Unable to fill thisuntil this is done. Please advise. documented in this encounter Plan [...] on filedocumented in this encounter Care Teams Trailer Assembler Relationship Specialty Start Date End Date Juana Bailey APRN [address] [place] [address] PCP - General Nurse Practitioner-Family 08/29/22 documented as of this encounter
--- OUTSIDE RECORDS SUMMARY | 2025-03-17 15:05 | XMS_ITS | Encounter Summary ---
Author Organization [place] [address] Care Team Providers Care Toll Gate Tender Name Role Phone Juana Bailey APRN Primary Care Provider [phone]- [phone] Reason for Visit * Reason Comments Medication Refill Encounter Details Date Type Department Care Team (Late st Contact Info) Description 01/19/2025 Refill SEP Nati [address] [place] [id number] Juana Bailey APRN [address] [facility] [address] [place] [address] Medication Refill Social History Tobacco Use Types Packs/Day Years Used Date Smoking Tobacco: Never Smokeless Tobacco: Current Snuff Alcohol Use Standard Drinks/Week Comments Not Currently 0 (1 standard drink = 0.6 oz pur e alcohol) Overall Financial Resource Strain ([facility]) Answe r Date Recorded How hard is it for you to pa y for the very basics like food, housing, medical care, and heating? Not very hard 03/05/2023 PHQ-2 Answer Date Recorded PHQ-2 Total Score 0 11/20/2024 [facility] of Occupat ional Health - Occupational Stress [...] and sent to requesting pharmacy. Routed to [facility] if an appointment is needed. documented in [...] Miller RMA BMI (Calculated) < 30 General 33.4(03/12/20 [...] as of this encounter Care Teams Toll Gate Tender Relationship Specialty Start Date End Date Juana Bailey APRN [address] [place] [address] PCP - General Nurse Practitioner-Family 08/29/22 documented as of this encounter
--- OUTSIDE RECORDS SUMMARY | 2025-03-17 15:05 | XMS_ITS | Encounter Summary ---
Author Organization [place] [address] Care Team Providers Care Conference Services Director Name Role Phone Juana Bailey APRN Primary Care Provider [phone]- [phone] Reason for Visit * Reason Comments Medication Refill Encounter Details Date Type Department Care Team (Late st Contact Info) Description 02/09/2025 Refill SEP Nati [address] [place] [phone] Juana Bailey APRN [address] [facility] [place] [address] Medication Refill Social History Tobacco Use Types Packs/Day Years Used Date Smoking Tobacco: Never Smokeless Tobacco: Current Snuff Alcohol Use Standard Drinks/Week Comments Not Currently 0 (1 standard drink = 0.6 oz pur e alcohol) Overall Financial Resource Strain ([facility]) Answe r Date Recorded How hard is it for you to pa y for the very basics like food, housing, medical care, and heating? Not very hard 03/05/2023 PHQ-2 Answer Date Recorded PHQ-2 Total Score 0 11/20/2024 [facility] of Occupat ional Health - Occupational Stress [...] Oral Tablet TAKE 1 TABLET BY MOUTH 2 TIMES A DAY 60 Tablet 2 02/09/2025 documented in this encounter Plan of Treatment [...] te topiramate (TOPAMAX) 50 mg Oral Tablet TAKE 1 TABLET BY MOUTH TWICE DAILY 11/02/2024 02/09/2025 documented as of this encounter Care Teams Conference Services Director Relationship Specialty Start Date End Date Juana Bailey [place] [address] [place] [address] PCP - General Nurse Practitioner-Family 08/29/22 documented as of this encounter
--- OUTSIDE RECORDS SUMMARY | 2025-03-17 15:05 | XMS_ITS | Clinical Summary ---
Author Organization [facility] Address [address] [place], [place] [address] Phone Care Team Providers Care Radiophone Operator Name Role Phone Juana Bailey ZAHRA Primary Care Provider Allergies Active Allergy Reactions Criticality Noted Date Comments Acetaminophen-Codeine Hives 11/04/2024 Medications fish oil OTC (OMEGA-3 DHA-EPA 300 MG) 300-1,000 mg Oral Capsule, Delayed Release(E.C.) Take 2 g by mouth daily. Active b fbmhqsu-P-deugf acid (NEPHROCAP) 1 mg Oral Capsule Take [...] A DAY 30 Tablet 5 025 Active bempedoic acid-ezetimibe (NEXLIZET) 180-10 mg Oral TabletIndications :Type 2 diabetes mellitus with hyperlipidemia (HCC),Dyslipidemi a,ASHD (arteriosclerotic heart disease) Take 1 Tablet by mouth daily. 90 Tablet 3 025 Active metoprolol (LOPRESSOR) [...] A DAY 100 Tablet 2 025 Active semaglutide (OZEMPIC) 2 mg/dose (8 mg/3 mL) SubQ Pen InjectorIndicatio ns:Type 2 diabetes mellitus with hyperlipidemia (HCC) Inject 2 mg under the skin once a week. 3 mL 11 025 Active ipratropium (ATROVENT) 21 mcg (0.03 %) Nasl [place], Non-AerosolIndica tions:Acute bacterial sinusitis 2 Sprays by Nasal route 3 times daily. 30 mL 2 Active SUMAtriptan (IMITREX) 100 mg Oral TabletIndications :Migraine without aura and without status migrainosus, not intractable Take 1 Tablet by mouth daily as needed for Migraine. 8 Tablet 2 Active topiramate (TOPAMAX) 50 mg Oral Tablet TAKE 1 TABLET BY MOUTH 2 TIMES A DAY 60 Tablet 2 Active hydrOXYzine (VISTARIL) 25 mg Oral Capsule Take 1 Capsule by mouth 3 times daily as needed. 30 Capsule Active ergocalciferol (DRISDOL) 1,250 mcg (50,000 unit) Oral Capsule TAKE 1 CAPSULE BY MOUTH ONE TIME PER WEEK 4 Capsule 5 Active traZODone (DESYREL) 50 mg Oral TabletIndications :Insomnia, persistent TAKE ONE TABLET BY MOUTH EVERY NIGHT 30 Tablet 2 Active ergocalciferol (DRISDOL) 1,250 mcg (50,000 unit) Oral Capsule TAKE 1 CAPSULE BY MOUTH ONE TIME PER WEEK 4 Capsule 5 025 2024 Discontinued traZODone (DESYREL) 50 mg Oral TabletIndications :Insomnia, persistent TAKE ONE TABLET BY MOUTH EVERY NIGHT 30 Tablet 2 025 2024 Discontinued sulfamethoxazole- trimethoprim (BACTRIM DS) 800-160 mg Oral TabletIndications :UTI (urinary tract infection), uncomplicated Take 1 Tablet by mouth every 12 hours for 7 days. 14 Tablet 025 2024 Discontinued(C ancelled by ) cephALEXin (KEFLEX) 500 mg Oral CapsuleIndication s:UTI (urinary tract infection), uncomplicated Take 1 Capsule by mouth every 8 hours for 7 days. 21 Capsule 025 2024 Active Problems Problem Noted Date [...] right thoracic pain. Sees pain mgmt at [facility] Will get outpt xray and have [...] Encounters Date Type Department Care Team Description 03/15/2025 Telephone [facility] [address] [place] [phone] Juana Bailey APRN Other (Needing xray orders signed); Relaying Information (xray) 03/12/2025 4:30 PM EST Office Visit [facility] [address] [place] [phone] Endy Ramirez MD Rib injury (Primary Dx); Hip injury, right, initial encounter 03/04/2025 Telephone [place] [address] [place] [phone] Brayton, Juana, STEAMFITTER APPRENTICE Medication Management (CPASFYI: Verified Rx was already picked up by pt. No further workup needed. Thank you./) 03/02/[address] [place] [phone] Brayton, Juana, STEAMFITTER APPRENTICE Medication Refill 03/01/2025 Results Follow-Up [address] [place] [phone] Endy Ramirez MD URINE CULTURE (NO STAIN) 02/28/[address] [place] [phone] Brayton, Juana, STEAMFITTER APPRENTICE Medication Refill 02/25/2025 11:00 AM EST Office Visit [address] [place] [phone] Endy Ramirez MD UTI (urinary tract infection), uncomplicated (Primary Dx) 02/22/[address] [place] [phone] Lynn, Juana, STEAMFITTER APPRENTICE Other (Call back); Patient Returning Call (Calling back ) 02/18/[address] [place] [phone] Lynn, Juana, STEAMFITTER APPRENTICE Prior Authorization (PA status needed on Ozempic- please call to update pt) 02/09/[address] [place] [phone] Brayton, Juana, STEAMFITTER APPRENTICE Medication Refill 01/29/2025 1:30 PM EDT Office Visit [address] [place] [phone] Endy Ramirez MD Acute bacterial sinusitis (Primary Dx); Cough, unspecified type; Migraine without aura and without status migrainosus, not intractable 01/21/[address] [place] [phone] LynnArnoldo lemonika, STEAMFITTER APPRENTICE Refill (Ozempic) 01/19/2025 Refill SEP [address] [place] [phone] Brayton, Juana, STEAMFITTER APPRENTICE Medication Refill 01/05/2025 Refill SEP [address] [place] [phone] Lynn, Juana, STEAMFITTER APPRENTICE Medication Refill 01/04/[address] [place] [phone] Brayton Juana, STEAMFITTER APPRENTICE Medication Management (CPASFYI: Pharmacy change per patient request, verified original Rx is cancelled, Rx resent to requested pharmacy.No further workup needed. Thank you./) 01/01/2025 4:00 PM EDT Office Visit [address] [place] [phone] Sarah Gomez APRN Acute coccygeal pain (Primary Dx) 12/18/[address] [place] [phone] Brayton, Juana, STEAMFITTER APPRENTICE Medication Management (hydroCHLOROthiazide 25 mg Oral Tablet) from Last 3 Months Immunizations Immunization Administration [...] Date Recorded PHQ-2 Total Score 0 11/20/2024 [facility] [...] Mass Index 33.28 03/12/2025 4:26 PM EST Plan of Treatment Health Maintenance Due Date Last Done Comments DTaP/TDaP/Td (1 - Tdap) 07/03/1987 Hepatitis B Vaccine (1 of 3 - 19+ 3-dose series) 07/03/1987 Pneumococcal Vaccine 50+ (1 of 2 - PCV) 07/03/1987 FIT 2013 Sigmoidoscopy 2013 Virtual Colonography 2013 Zoster (1 of 2) 2018 COVID-19 Vaccine (1 - 2024- season) 2024 Influenza Vaccine (#1) 2024 9, [...] Blood Pressure 126/82(2024 4:26 PM EST) No Brayton, Juana, STEAMFITTER APPRENTICE Maintain a healthy diet, exercise regularly and maintain an ideal body weight General No Noelle Yeh RMA BMI (Calculated) < 30 General 33.4(03/12/20 4:26 PM EST) No Lynn, Juana, STEAMFITTER APPRENTICE Stay Tobacco Free Lifestyle No Brayton, Juana, STEAMFITTER APPRENTICE HEMOGLOBIN A1C < 7.0 Result Component 5.9( 10:54 AM EDT) No Lynn, Juana, STEAMFITTER APPRENTICE Procedures Procedure Name Priority Date/Time Associated Diagnosis Comments URINE CULTURE (NO STAIN) Routine 02/25/2025 10:40 AM EST UTI (urinary tract infection), uncomplicated SEP URINALYSIS POC Routine 02/25/2025 10 :32 AM EST UTI (urinary tract infection), uncomplicated SCANNED LABS 02/04/2025 10:05 PM EDT SCANNED LABS 02/02/2025 8:26 PM EDT BASIC METABOLIC PANEL Routine 12/11/2024 10:15 AM EDT Hypokalemia LIPID PANEL REFLEX Routine 11/20/2024 10 :54 AM EDT Statin myopathy Dyslipidemia HEMOGLOBIN A1C Routine 11/20/2024 10:54 AM EDT Type 2 diabetes mellitus with hyperlipidemia (HCC) ALBUMIN/CREATININE RATIO, RANDOM URINE Routine 11/20/2024 10:38 AM EDT Type 2 diabetes mellitus with hyperlipidemia (HCC) COLONOSCOPY Routine 11/04/2024 2:28 PM EDT Screening for colon cancer MM MAMMO DIGITAL MARCO SCREEN BILAT Routine 08/31/2024 11:36 AM EDT Encounter for screening 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 cancer CINEMA OR THEATRE MANAGER CYTOLOGY REQUEST (PAP ONLY) Routine 05/22/2023 9:58 AM EST Cervical cancer screening Screening for STDs (sexually transmitted diseases) HM DIABETES EYE EXAM Routine 02/20/2022 8:43 AM EST from Last 3 Months or Most Recently Relevant to Health Maintenance Results * (ABNORMAL) URINE CULTURE (NO STAIN) (02/25/2025 10:40 AM EST) Culture Positive Growth(A) 02/27/2025 11:20 AM EST PREFERRED LAB [facility], [place] Culture 10,000 CFU/mL Escherichia coli SUSCEPTIBI LITY RESULT 02/27/2025 11:20 AM EST [facility] Urine STRUCTURE OF URINARY TRACT PROPER / [...] tho xazole SUSCEPTIBILITY RESULT >2/38 ug/mL: Resistant Endy Ramirez MD MICROBIOLOGY - GENERAL ORDERAB LES Final Result Performing Organization Address City/State/[facility] Co de Phone Number [facility], [facility] [address] [facility] , [place] [address] * (ABNORMAL) SEP URINALYSIS POC (02/25/2025 10:32 AM EST) UA Color POC Dark Yellow Color 02/25/2025 10:34 AM EST [facility] [place] UA Appear POC Clear Clear 02/25/2025 10:34 AM EST [facility] [place] UA Gluc POC Negative Negative mg/dL 02/25/2025 10:34 AM EST [facility] [place] UA Bili POC Negative Negative 02/25/2025 10:34 AM EST [facility] [place] UA Ketones POC Negative Negative mg/dL 02/25/2025 10:34 AM EST [facility] [place] UA SG POC 1.025 1.001 - 1.035 no units 02/25/2025 10:34 AM EST [facility] [place] UA Blood POC Negative Negative 02/25/2025 10:34 AM EST [facility] [place] UA pH POC 5.5 5.0 - 8.0 pH 02/25/2025 10:34 AM EST [facility] [place] UA Protein POC Negative Negative mg/dL 02/25/2025 10:34 AM EST [facility] [place] UA Urobilinogen POC 1.0 0.2, 1.0 02/25/2025 10:34 AM EST [facility] [place] [facility]A Nitrite POC Negative Negative 02/25/2025 10:34 AM EST [facility] [place] [facility]A Leuk Est POC Trace(A) Negative 10:34 AM EST [facility] [place] Urine STRUCTURE OF URINARY TRACT PROPER / Unknown 02/25/2025 10:32 AM EST 02/25/2025 10:34 AM EST us Endy Ramirez MD POINT OF CARE TEST ORDERABLES Final Result [facility] [place] [address] [place] [address] * SCANNED LABS (02/04/2025 10:05 PM EDT) Only the most recent of2 resultswithin the time period is included. 02/04/2025 10:0 5 PM EDT us Unknown Provider HEMATOLOGY ORDERABLES Final Res ult * BASIC METABOLIC PANEL (12/11/2024 10:15 AM [...] - 10.4 mg/dL 12/11/2024 4:32 PM EDT [facility], [facility] Glucose Lvl 86 70 - 99 mg/dL 12/11/2024 4:32 PM EDT [facility], [facility] BUN 16 6 - 20 mg/dL 12/11/2024 4:32 PM EDT [facility], [facility] Creatinine 0.73 0.51 - 1.30 mg/dL 12/11/2024 4:32 PM EDT [facility] [employer], [facility] eGFR (CKD-EPIcr 2020) 96 >=60 mL/min/1.7 3 m2 12/11/2024 4:32 PM EDT [facility] [employer], [facility] Comment:Estimated GFR was ca lculated using the CKD-EPIcr (2020) equation refit without race. The equation is recommended by the National Kidney Foundation - [place] of Nephrology Task Force. Blood VENOUS BLOOD / Unknown Venipuncture / Unknown 12/11/2024 10:15 AM EDT 12/11/2024 10:15 AM EDT Juana Bailey STEAMFITTER APPRENTICE CHEMISTRY ORDERABLES Final Result PREFERRED [facility], [facility] [address] [facility] , [place] [address] * (ABNORMAL) LIPID PANEL REFLEX (11/20/2024 10:54 AM EDT) Cholesterol 219(H) <200 mg/dL 11/20/2024 3:56 PM EDT [facility] [employer] [facility], [facility] Comment: < 200 Desirable 200 - 239 Borderline High >= 240 High Triglyceride 184(H) <150 mg/dL 11/20/2024 3:56 PM EDT [facility] [employer] [facility], [facility] Comment: < 150 Normal 150 - 199 Borderline High 200 - 499 High >= 500 Very High HDL 54 >=40 mg/dL 11/20/2024 3:56 PM EDT [facility] [employer], [facility] Comment: > 60 Optimal 40 - 60 Acceptable < 40 Low LDL Calculated 132(H) <100 mg/dL 11/20/2024 3:56 PM EDT [facility] [employer] [facility], [facility] Comment: < 100 Optimal 100 - 129 Near or above optimal 130 - 159 Borderline High 160 - 189 High >= 190 Very High The National Institutes of Health (NIH) equation is used for all lipid panels that report calculated LDL (LDL-C). Non-HDL-C Calculated 165(H) <=129 mg/dL 11/20/2024 3:56 PM EDT [employer] [facility] Comment: <130 Desirable 130-159 Above Desirable 160-189 Borderline High 190-219 High >= 220 Very High Fasting Specimen? Yes None 025 3:56 PM EDT [facility] [employer] Blood VENOUS BLOOD / Unknown Venipuncture / Unknown 11/20/2024 10:54 AM EDT 11/20/2024 10:54 AM EDT [employer] CHEMISTRY ORDERABLES Final Result Performing Organization Address [facility] Co de Phone Number [facility] [employer] [address] , [place] [address] * (ABNORMAL) HEMOGLOBIN A1C (11/20/2024 10:54 AM EDT) Pathologist [facility] Hgb A1C 5.9(H) 4.2 - 5.6 % 11/20/2024 4:02 PM EDT [facility] Est. Avg Glucose 123 mg/dL 11/20/2024 4:02 PM EDT [facility] Blood VENOUS BLOOD / Unknown Venipuncture / Unknown 11/20/2024 10:54 AM EDT 11/20/2024 10:54 AM EDT Narrative [facility] [employer] [facility] - 11/20/2024 4:02 PM EDT REFERENCE RANGE: Normal: 4.0-5.6% Pre-diabetes: 5.7-6.4% Provisional diagnosis of diabetes: >6.4% Hgb F>10% and anything which shortens red cell survival, such as hemolytic anemia, or unstable hemoglobin variants such as HbSS, HbSC, or HbCC, will lower the HbA1c value associated with a given level of glycemic control. Zesty STEAMFITTER APPRENTICE CHEMISTRY ORDERABLES Final Result Performing Organization Address [facility] Co de Phone Number [facility] [employer] [address] , [place] [address] [phone] * MICROALBUMIN/CREATININE RATIO URINE (11/20/2024 10:38 AM EDT) Urine Albumin 68.9 mg/L 11/20/2024 4:46 PM EDT PREFERRED [employer] [facility] Urine Creatinine 284.0 mg/dL 11/20/2024 4:46 PM EDT [facility] [employer] [facility] Ur Albumin/Creat Ratio 24 0 - 30 mg/g 11/20/2024 4:46 PM EDT [facility] [employer] [facility] Urine STRUCTURE OF URINARY TRACT PROPER / Unknown 11/20/2024 10:38 AM EDT 11/20/2024 10:38 AM EDT Juana Bailey STEAMFITTER APPRENTICE URINE ORDERABLES Final Resu lt PREFERRED [employer] [facility] [address] [facility] , [place] [address] * COLONOSCOPY (11/04/2024 2:28 PM EDT) Anatomical [...] MD Performing Provider IRVIN Lamar CRNA, RN Help Desk Engineer Bárbara Leyva, paste mixer Nurse Medications See Anesthesia Record. Preprocedure A [...] ENDOSCOPY PROCEDURE ORDERABL ES Final Result * MM MAMMO DIGITAL MARCO SCREEN BILAT (08/31/2024 11:36 AM EDT) Anatomical Region Laterality Modality Breast Bilateral Mammography 08/31/2024 11:3 6 AM EDT Impressions 09/08/2024 10:50 AM EDT Negative ([id number]) RECOMMENDATION: Routine Screening Mammogram in 1 Year Bilateral . . COMMENTS: DISCLAIMER *The patient was notified by MyChart or mail of the results for this examination. *The patient's information was entered into a reminder system with a target due date for the next breast imaging, in accordance with the [place] and the Society of [...] for screening mammogram for malignant neoplasm of [id number] COMPARISON STUDIES: Outside films from [facility] dated 09/26/2020. TISSUE DENSITY: There are scattered areas of fibroglandular density. FINDINGS: No mammographic evidence of malignancy. Procedure Note Allie Higginbotham MD - 09/08/2024 EXAM: MM MAMMO DIGITAL MARCO SCREEN BILAT EXAM DATE: 08/31/2024 11:36 AM INDICATION: Z12.31-Encounter for screening mammogram for malignantneoplasm of [id number]-[id number] COMPARISON STUDIES: Outside films from [facility] dated09/26/2020. TISSUE DENSITY: There are scattered areas of fibroglandular density. FINDINGS: No mammographic evidence of malignancy. IMPRESSION: Negative ([id number]) RECOMMENDATION: Routine Screening Mammogram in 1 Year Bilateral . . COMMENTS: DISCLAIMER *The patient was notified by MyChart or mail of the results for this examination. *The patient's information was entered into a reminder system with atarget due date for the next breast imaging, in accordance with the [place] and the Society of Breast Imaging recommendations. *Breast Imaging has a false negative rate of 15%. *Any patient with a palpable abnormality, unexplained by breast imaging,should be managed on a clinical basis by the attending physician. Juana Bailey APRN IM MAMMOGRAPHY ORDERABLES Final Result * CINEMA OR THEATRE MANAGER CYTOLOGY REQUEST (PAP ONLY) (05/22/2023 9:58 AM EST) CASE REPORT Gynecologic Cytology Report Case: [id number] Authorizing Provider: Juana Bailey APRN Collected: 05/22/2023 0958 Ordering Location: [facility] Received: 05/22/2023 0958 First Screen: Jose Douglas CT Specimen: LIQUID-BASED PAP - CERVICAL/ENDOCERV ICAL, Cervix, Endocervical 05/25/2023 1:17 PM EST [facility] PAP FINAL DIAGNOSIS Negative for intraepithelial lesion or malignancy 05/25/2023 1:17 PM EST [facility] at 1317 EST MICROSCOPIC DESCRIPTION Microscopic examination is performed and the findings corroborate the diagnosis. 05/25/2023 1:17 PM EST [facility] PAP SMEAR ADEQUACY Satisfactory for evaluation 05/25/2023 1:17 PM EST [facility] PAP ORGANISMS NOTED Shift in claus suggestive of bacterial vaginosis. 05/25/2023 1:17 PM EST [facility] ENDOCERVICAL T-ZONE Transformation Zone Absent. This is not unusual in a post-menopausal woman. 05/25/2023 1:17 PM EST [facility] EMBEDDED IMAGES 1:17 PM EST [facility] PAP DISCLAIMER The Pap Smear is a screening test that aids in the detection of cervical cancer and cancer precursors. Both false positive and false negative results can occur. The test should be used at regular intervals, and positive results should be confirmed before definitive therapy. Processed using the [employer] Repairer Automated cytology screening device ([employer]). 05/25/2023 1:17 PM EST [facility] [employer] ENDOCERVICAL STRUCTURE / Unknown 05/22/2023 9:58 AM EST 05/22/2023 9:58 AM EST Juana Bailey STEAMFITTER APPRENTICE CYTOLOGY ORDERABLES Final R esult Performing Organization Address [facility] Co de Phone Number [facility] [address] [place] [address] * DIABETES EYE EXAM (02/20/2022 8:43 AM EST) Left Diabetic Retinopathy Not Present Present/Not Present SEP OFFICE Right Diabetic Retinopathy Not Present Present/Not Present SEP OFFICE Historical Provider Generic HEALTH MAINTENANCE E dited Result - Final Performing Organization Address [facility] Co de Phone Number SEP OFFICE from Last 3 Months or Most Recently Relevant to Health Maintenance Insurance [employer] [facility] [place] [address] [facility] [place] Care Teams Radiophone Operator Relationship Specialty Start Date End Date Juana [place] [address] [place] [address] PCP - General Nurse Practitioner-Family 08/29/22
--- OUTSIDE RECORDS SUMMARY | 2025-03-17 15:05 | XMS_ITS | Encounter Summary ---
Author Organization [place] [address] Care Team Providers Care Mainframe Programmer Name Role Phone Juana Bailey APRN Primary Care Provider [phone] Reason for Visit * Reason Comments Medication Refill Encounter Details Date Type Department Care Team (Late st Contact Info) Description 03/02/2025 Refill [facility] [address] [place] [phone] Juana Bailey APRN [address] [place] [address] Medication Refill Social History Tobacco Use Types Packs/Day Years Used Date Smoking Tobacco: Never Smokeless Tobacco: Current Snuff Alcohol Use Standard Drinks/Week Comments Not Currently 0 (1 standard drink = 0.6 oz pur e alcohol) Overall Financial Resource Strain ([facility]) Answe r Date Recorded How hard is it for you to pa y for the very basics like food, housing, medical care, and heating? Not very hard 03/05/2023 PHQ-2 Answer Date Recorded PHQ-2 Total Score 0 11/20/2024 [facility] [place] of Occupat ional Health - Occupational Stress [...] BY MOUTH EVERY NIGHT 30 Tablet 2 03/04/2025 documented in this encounter Miscellaneous Notes * Telephone Encounter - Adriana Mcmullen CPhT - 03/04/2025 11:11 AM EST Trazodone Future Visit: N/A Last Assessed Visit: 11/20/2024(AWV or similar dx) Follow-Up Date: 05/23/2024 All protocols passed. Refills approved and sent to requesting pharmacy. Routed to [facility] if an appointment is needed. documented in [...] TAKE ONE TABLET BY MOUTH EVERY NIGHT 12/01/2024 03/04/2025 documented as of this encounter Care Teams Mainframe Programmer Relationship Specialty Start Date End Date Juana Bailey APRN [address] [place] [address] PCP - General Nurse Practitioner-Family 08/29/22 documented as of this encounter
--- OUTSIDE RECORDS SUMMARY | 2025-03-17 15:05 | XMS_ITS | Encounter Summary ---
Author Organization [facility] [place] [address] Care Team Providers Care Engraving Plate Maker Name Role Phone Juana Bailey APRN Primary Care Provider [phone] Reason for Visit * Reason Onset Date Comments Refill 01/21/2025 Ozempic Encounter Details Date Type Department Care Team (Late st Contact Info) Description 01/21/2025 Telephone [facility] [address] [place] [phone] Juana Bailey APRN [address] [place] [address] Refill (Ozempic) Social History Tobacco Use [...] Date Recorded PHQ-2 Total Score 0 11/20/2024 [facility] [place] of Occupat ional Health - Occupational Stress [...] w/ prescribing provider: None Pharmacy & Location: [facility] - [place] [phone] - [address] [address] S [phone] [address] [address] [place] [phone] LALY #: -- Informed patient refill requests [...] documented as of this encounter Care Teams Engraving Plate Maker Relationship Specialty Start Date End Date Juana Bailey APRN [address] [place], [place] [address] PCP - General Nurse Practitioner-Family 08/29/22 documented as of this encounter
--- OUTSIDE RECORDS SUMMARY | 2025-03-17 15:05 | XMS_ITS | Clinical Summary ---
Author Organization Healthcare Address [address] [place] [address] Care Team Providers Care Application Performance Engineer Name Role Phone Gamal Queen MD Primary Care Provider [phone] Family History 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 Relation Name Comments [...] of Treatment Not on file Care Teams Application Performance Engineer Relationship Specialty Start Date End Date Gamal [place] MD [facility] [place] [address] PCP - General 08/26/20
--- OUTSIDE RECORDS SUMMARY | 2025-03-17 15:05 | XMS_ITS | Encounter Summary ---
Author Organization [place] [address] Care Team Providers Care Machine Dyer Name Role Phone Juana Bailey APRN Primary Care Provider Reason for Visit * Reason Onset Date Comments Results 12/11/2024 BMP Encounter Details Date Type Department Care Team (Late st Contact Info) Description 12/11/2024 Results Follow-Up SEP Nati [address] [place] [address] Juana Bailey APRN [address] [place] [address] BASIC METABOLIC PANEL Social History Tobacco Use Types Packs/Day Years Used Date Smoking Tobacco: Never Smokeless Tobacco: Current Snuff Alcohol Use Standard Drinks/Week Comments Not Currently 0 (1 standard drink = 0.6 oz pur e alcohol) Overall Financial Resource Strain ([facility]) Answe r Date Recorded How hard is it for you to pa y for the very basics like food, housing, medical care, and heating? Not very hard 03/05/2023 PHQ-2 Answer Date Recorded PHQ-2 Total Score 0 11/20/2024 [facility] [place] of Occupat ional Health - Occupational Stress [...] 7.0 Result Component 5.9( 10:54 AM EDT) Juana Brito APRN documented as of this encounter Visit Diagnoses Not on filedocumented in this encounter Care Teams Machine Dyer Relationship Specialty Start Date End Date Juana Bailey APRN [address] [place] [address] PCP - General Nurse Practitioner-Family 08/29/22 documented as of this encounter
--- OUTSIDE RECORDS SUMMARY | 2025-03-17 15:05 | XMS_ITS | Encounter Summary ---
Author Organization [place] [address] Care Team Providers Care Microfilming Document Preparer Name Role Phone Juana Bailey RUM PROCESSING OPERATOR Primary Care Provider +1 [phone] Encounter Details Date Type Department Care Team (Late st Contact Info) Description 03/01/2025 Results Follow-Up SEP Nati [facility] [place] [address] Endy Ramirez MD [address] [place] [address] URINE CULTURE (NO STAIN) Social History Tobacco Use Types Packs/Day Years [...] Date Recorded PHQ-2 Total Score 0 11/20/2024 [facility] [place] of Occupat ional Health - Occupational Stress [...] Assessment Author No 11/20/2024 10:18 AM Sarah Poalnco CCMA * Does this person have difficulty [...] Refills Last Filled Start Date End Date cephALEXin (KEFLEX) 500 mg Oral CapsuleIndications: UTI (urinary tract infection), uncomplicated Take 1 Capsule by mouth every 8 hours for 7 days. 21 Capsule 03/01/2025 documented in this encounter Progress Notes * Endy Ramirez MD - 03/01/2025 8:27 AM EST Her urine culture did grow out a resistant UTI. Because of this she needs to stop the Bactrim that was sent into the pharmacy for her and start a new antibiotic (Keflex) which I sent into the pharmacy for her. If she still having UTI symptoms after completing the course of Keflex please follow-up documented in this encounter Plan of Treatment [...] as of this encounter Visit Diagnoses Diagnosis UTI (urinary tract infection), uncomplicated- Primary Urinary tract infection, site not specified documented in this encounter Discontinued Medications Medication Sig Discontinue Reason Start Date End Da te sulfamethoxazole-trimethop rim (BACTRIM DS) 800-160 mg Oral TabletIndications:UTI (urinary tract infection), uncomplicated Take 1 Tablet by mouth every 12 hours for 7 days. Cancelled by 02/25/2025 03/01/2025 documented as of this encounter Care Teams Microfilming Document Preparer Relationship Specialty Start Date End Date Juana Bailey APRN [address] [place] [address] PCP - General Nurse Practitioner-Family 08/29/22 documented as of this encounter
== END 2025-03-17 23:59 | disposition home or self-care (01) ==
LOC: RAD 15:02
PROVIDERS: PCP Nurse Practitioner; Visit Provider Nurse Practitioner
DX: M16.11 Unilateral primary osteoarthritis, right hip (principal); M41.84 Other forms of scoliosis, thoracic region; M51.34 Other intervertebral disc degeneration, thoracic region; S29.9XXA Unspecified injury of thorax, initial encounter; S79.911A Unspecified injury of right hip, initial encounter; Z98.1 Arthrodesis status; W19.XXXA Unspecified fall, initial encounter
CPT/HCPCS: 71101; 72070; 73502

== ENCOUNTER 2025-04-08 14:01 | Emergency (ER) | payer OTHER, SELFPAY ==
--- OUTSIDE RECORDS SUMMARY | 2025-02-25 11:00 | XMS_ITS | Encounter Summary ---
Author Organization [place] [address] Care Team Providers Care Women'S Studies Professor Name Role Phone Juana Bailey ZAHRA Primary Care Provider Reason for Visit * Reason Comments Urinary Frequency Pain with urination x3-4 days Encounter Details Date Type Department Care Team (Latest Contact Info) Description 02/25/2025 11:00 AM EST Office Visit ASHE[facility] [place] [facility] [place] [address] Endy Ramirez MD [address] [facility] [place] [address] UTI (urinary tract infection), uncomplicated (Primary Dx) Social History Tobacco Use Types [...] Date Recorded PHQ-2 Total Score 0 11/20/2024 [facility] [place] of Occupat ional Health - Occupational Stress [...] Sign Reading Time Taken Comments Blood Pressure 100/68 02/25/2025 10:28 AM EST Pulse 88 02/25/2025 10:28 AM EST Temperature 36.8 C (98.2 F) 02/25/2025 10:28 AM EST Respiratory Rate 18 02/25/2025 10:28 AM EST Oxygen Saturation 98% 02/25/2025 10:28 AM EST Inhaled Oxygen Concentration - - Weight 90.3 kg (199 lb) 02/25/2025 10:28 AM EST Height 165.1 cm (5' 5 ) 02/25/2025 10:28 AM EST Body Mass Index 33.12 02/25/2025 10:28 AM EST documented in this encounter Functional Status * [...] Refills Last Filled Start Date End Date sulfamethoxazole-tr imethoprim (BACTRIM DS) 800-160 mg Oral TabletIndications:U TI (urinary tract infection), uncomplicated Take 1 Tablet by mouth every 12 hours for 7 days. 14 Tablet 02/25/2025 documented in this encounter Progress Notes * Endy Ramirez MD - 02/25/2025 11:00 AM EST Assessment & Plan 1. Urinary Tract Infection: - Burning and frequency with urination have been present for 4 days. No fever, chills, vaginal discharge, itching, nausea, vomiting, or worsening back pain. - Urinalysis shows leukocyte esterase, indicating a UTI. - A urine culture will be sent to identify the specific bacteria and check for antibiotic resistance. - An antibiotic will be prescribed and sent to the pharmacy. If antibiotic resistance is found, treatment adjustments will be communicated on 03/01/2025 based on the culture results Assessment & Plan UTI (urinary tract infection), uncomplicated Orders: SEP URINALYSIS POC sulfamethoxazole-trimethoprim (BACTRIM DS) 800-160 mg Oral Tablet; Take 1 Tablet by mouth every 12 hours for 7 days. URINE CULTURE (NO STAIN); Future No follow-ups on file. Subjective Jane Madden is a 54 y.o. female Chief Complaint Patient presents with Urinary Frequency Pain with urination x3-4 days History of Present Illness The patient is a 54-year-old female who presents today for a possible UTI. She reports the onset of UTI symptoms since Saturday, characterized by dysuria and urinary frequency.She does not experience any systemic symptoms such as fevers or chills. Additionally, she does not have any vaginal discharge, pruritus, or symptoms suggestive of a yeast infection. She also does notreport any associated nausea or vomiting. She has a known history of back issues but does not report any exacerbation of her baseline back pain. Review of Systems Constitutional: Negative for activity change, chills, fatigue and fever. Genitourinary: Positive for dysuria, frequency and urgency. Negative for flank pain, vaginal bleeding, vaginal discharge and vaginal pain. Objective Blood pressure 100/68, pulse 88, temperature 98.2 ??F (36.8 ??C), temperature source Temporal, resp. rate 18, height 5' 5 (1.651 m), weight 199 lb (90.3 kg), SpO2 98%, not currently . Body mass index is 33.12 kg/m??. Physical Exam No pain on palpation of the abdomen. Physical Exam Vitals reviewed. Constitutional: General: She is not in acute distress. Appearance: She is not ill-appearing, toxic-appearing or diaphoretic. Abdominal: Palpations: Abdomen is soft. Tenderness: There is no abdominal tenderness. There is no right CVA tenderness, left CVA tendernessor guarding. Skin: Findings: No rash. Neurological: General: No focal deficit present. Mental Status: She is alert and oriented to person, place, and time. Results Laboratory Studies Urinalysis showed presence of white blood cells and leukocyte esterase. Results for orders placed or performed in visit on 02/25/25 SEP URINALYSIS POC Result Value Ref Range UA Color POC Dark Yellow Color UA Appear POC Clear Clear UA Gluc POC Negative Negative mg/dL UA Bili POC Negative Negative UA Ketones POC Negative Negative mg/dL UA SG POC 1.025 1.001 - 1.035 no units UA Blood POC Negative Negative UA pH POC 5.5 5.0 - 8.0 pH UA Protein POC Negative Negative mg/dL UA Urobilinogen POC 1.0 0.2, 1.0 UA Nitrite POC Negative Negative UA Leuk Est POC Trace (A) Negative The provider educated the patient (or legal food service representative) on the use of the ambient listening artificial intelligence tool, Gravity Jack. They were informed that this AI tool processes the conversation to generate a clinical note with the expected benefit of improved accuracy while achieving an improved encounter experience for the patient and provider.?The provider explained that the medical information captured by the AI tool including, but not limited to, diagnoses and treatment plan would be protected in accordance with applicable privacy laws and that all diagnoses and treatment decisions would be made by the provider. The provider explained that the note generated will be reviewed bythe provider for accuracy to minimize potential errors.? The patient was given an opportunity to ask questions and opt out of proceeding with the use of the AI tool. After being informed of such information, the patient (or legal food service representative), and each individual in attendance with the patient, verbally consented to the use of the AI tool. documented in this encounter Plan of Treatment [...] Result Component 5.9( 10:54 AM EDT) No Doolittle, Juana, HOTEL MAINTENANCE ENGINEER documented as of this encounter Procedures Procedure Name Priority Date/Time Associated Diagnosis Comments URINE CULTURE (NO STAIN) Routine 02/25/2025 10:40 AM EST UTI (urinary tract infection), uncomplicated SEP URINALYSIS POC Routine 02/25/2025 10 :32 AM EST UTI (urinary tract infection), uncomplicated documented in this encounter Results * (ABNORMAL) URINE CULTURE (NO STAIN) (02/25/2025 10:40 AM EST) Culture Positive Growth(A) 02/27/2025 11:20 AM EST PREFERRED LAB [facility], [facility] Culture 10,000 CFU/mL Escherichia coli SUSCEPTIBI LITY RESULT 02/27/2025 11:20 AM EST PREFERRED [facility] Urine STRUCTURE OF URINARY TRACT PROPER / Unknown 02/25/2025 10:40 AM EST 02/25/2025 10:40 AM EST Narrative Organism Antibiotic Method Susceptibility Escherichia coli Amikacin SUSCEPTIBILITY RESULT Escherichia coli Amoxicillin/Clavulanate SUSCEPTIBILIT Y RESULT <=8/4 ug/mL: Susceptible Escherichia coli Ampicillin SUSCEPTIBILITY RESULT >16 ug/mL: Resistant Escherichia coli Ampicillin/Sulbactam SUSCEPTIBILITY R ESULT >16/8 ug/mL: Resistant Escherichia coli Aztreonam SUSCEPTIBILITY RESULT <=4 ug/mL: Susceptible Escherichia coli Cefazolin SUSCEPTIBILITY RESULT 4 ug/mL: Susceptible Escherichia coli Cefepime SUSCEPTIBILITY RESULT Escherichia coli Cefotaxime SUSCEPTIBILITY RESULT Escherichia coli Cefoxitin SUSCEPTIBILITY RESULT <=8 ug/mL: Susceptible Escherichia coli Ceftazidime SUSCEPTIBILITY RESULT Escherichia coli Ceftazidime/Avibactam SUSCEPTIBILITY RESULT Escherichia coli Ceftolozane/Tazobactam SUSCEPTIBILITY RESULT Escherichia coli Ceftriaxone SUSCEPTIBILITY RESULT Escherichia coli Cefuroxime SUSCEPTIBILITY RESULT Escherichia coli Ciprofloxacin SUSCEPTIBILITY RESULT >2 ug/mL: Resistant Escherichia coli Ertapenem SUSCEPTIBILITY RESULT <=0.5 ug/mL: Susceptible Escherichia coli Gentamicin SUSCEPTIBILITY RESULT <=2 ug/mL: Susceptible Escherichia coli Imipenem SUSCEPTIBILITY RESULT <=1 ug/mL: Susceptible Escherichia coli Levofloxacin SUSCEPTIBILITY RESULT >4 ug/mL: Resistant Escherichia coli Meropenem SUSCEPTIBILITY RESULT <=1 ug/mL: Susceptible Escherichia coli Meropenem/Vaborbactam SUSCEPTIBILITY RESULT Escherichia coli Minocycline SUSCEPTIBILITY RESULT Escherichia coli Moxifloxacin SUSCEPTIBILITY RESULT Escherichia coli Nitrofurantoin SUSCEPTIBILITY RESULT <=32 ug/mL: Susceptible Escherichia coli Piperacillin/Tazobactam SUSCEPTIBILIT Y RESULT <=8 ug/mL: Susceptible Escherichia coli Tetracycline SUSCEPTIBILITY RESULT <=4 ug/mL: Susceptible Escherichia coli Tigecycline SUSCEPTIBILITY RESULT Escherichia coli Tobramycin SUSCEPTIBILITY RESULT <=2 ug/mL: Susceptible Escherichia coli Trimethoprim/Sulfame tho xazole SUSCEPTIBILITY RESULT >2/38 ug/mL: Resistant us Endy Ramirez MD MICROBIOLOGY - GENERAL ORDERAB LES Final Result PREFERRED LAB [facility], [facility] [address] [facility] , [place] [address] * (ABNORMAL) SEP URINALYSIS POC (02/25/2025 10:32 AM EST) UA Color POC Dark Yellow Color 02/25/2025 10:34 AM EST [place] [place] UA Appear POC Clear Clear 02/25/2025 10:34 AM EST [facility] [place] UA Gluc POC Negative Negative mg/dL 02/25/2025 10:34 AM EST [facility] [place] UA Bili POC Negative Negative 02/25/2025 10:34 AM EST [facility] [place] UA Ketones POC Negative Negative mg/dL 02/25/2025 10:34 AM EST [facility] [place] UA SG POC 1.025 1.001 - 1.035 no units 02/25/2025 10:34 AM EST [facility] [place] UA Blood POC Negative Negative 02/25/2025 10:34 AM EST [facility] [place] UA pH POC 5.5 5.0 - 8.0 pH 02/25/2025 10:34 AM EST [facility] [place] UA Protein POC Negative Negative mg/dL 02/25/2025 10:34 AM EST [facility] [place] UA Urobilinogen POC 1.0 0.2, 1.0 02/25/2025 10:34 AM EST [facility] [place] UA Nitrite POC Negative Negative 02/25/2025 10:34 AM EST [facility] [place] UA Leuk Est POC Trace(A) Negative 10:34 AM EST [facility] [place] Urine STRUCTURE OF URINARY TRACT PROPER / Unknown 02/25/2025 10:32 AM EST 02/25/2025 10:34 AM EST us Endy Ramirez MD POINT OF CARE TEST ORDERABLES Final Result SEP [facility] [address] [place] [id number] documented in this encounter Visit Diagnoses Diagnosis UTI (urinary tract infection), uncomplicated- Primary Urinary tract infection, site not specified documented in this encounter Care Teams Women'S Studies Professor Relationship Specialty Start Date End Date Juana Bailey APRN [address] [place] [address] PCP - General Nurse Practitioner-Family 08/29/22 documented as of this encounter
--- OUTSIDE RECORDS SUMMARY | 2025-03-12 16:30 | XMS_ITS | Encounter Summary ---
Author Organization [place] [address] Care Team Providers Care Strawhat Blocking Operator Name Role Phone Juana Bailey ZAHRA Primary Care Provider +1- [phone] Reason for Visit * Reason Comments Hip Pain Encounter Details Date Type Department Care Team (Late st Contact Info) Description 03/12/2025 4:30 PM EST Office Visit SEP Nati [address] [place] [phone] Endy Ramirez MD [address] [place] [address] Rib injury (Primary Dx); Hip injury, right, initial encounter Social History Tobacco Use Types Packs/Day [...] Date Recorded PHQ-2 Total Score 0 11/20/2024 [facility] [place] of Occupat ional Health - [...] Sign Reading Time Taken Comments Blood Pressure 126/82 03/12/2025 4:26 PM EST Pulse 82 03/12/2025 4:26 PM EST Temperature 36.6 C (97.9 F) 03/12/2025 4:26 PM EST Respiratory Rate 16 03/12/2025 4:26 PM EST Oxygen Saturation 98% 03/12/2025 4:26 PM EST Inhaled Oxygen Concentration - - Weight 90.7 kg (200 lb) 03/12/2025 4:26 PM EST Height 165.1 cm (5' 5 ) 03/12/2025 4:26 PM EST Body Mass Index 33.28 03/12/2025 4:26 PM EST documented in this encounter Functional Status [...] Sarah Polanco CCMA documented in this encounter Progress Notes * Endy Ramirez MD - 03/12/2025 4:30 PM EST Assessment & Plan Rib injury Orders: XR RIBS RIGHT 2 VW; Future Hip injury, right, initial encounter Orders: XR HIP RIGHT AP LATERAL W AP PELVIS; Future Will check x-rays to rule out fractures related to recent fall injury. Advised NSAIDs to help with pain. Follow-up imaging results when available Progress Note: Vitals: 03/12/25 1626 BP: 126/82 Pulse: 82 Resp: 16 Temp: 97.9 ??F (36.6 ??C) TempSrc: Temporal SpO2: 98% Weight: 200 lb (90.7 kg) Height: 5' 5 (1.651 m) Body mass index is 33.28 kg/m??. SUBJECTIVE: Chief Complaint Patient presents with Hip Pain HPI: She is having issues with right sided hip pain and right sided rib pain. She fell 4 days ago while traveling on vacation and injured her right ribs and hip when she fell. She did not seek medical attention at that time but she still having pain in the area. No trouble with her gait/mobility. Review of Systems Constitutional: Negative for activity change, chills, fatigue and fever. Cardiovascular: Positive for chest pain. Negative for palpitations and leg swelling. Musculoskeletal: Positive for arthralgias and myalgias. Negative for gait problem. OBJECTIVE: Physical Exam Vitals reviewed. Constitutional: General: She is not in acute distress. Appearance: She is not ill-appearing or toxic-appearing. Musculoskeletal: Comments: Tenderness to palpation over right lateral hip and right lateral ribs. Neurological: General: No focal deficit present. Mental Status: She is alert and oriented to person, place, and time. documented in this encounter Plan of Treatment Scheduled Orders Name Type Priority Associated Diagnoses Orde r Schedule XR RIBS RIGHT 2 VW Imaging Routine Rib injury 1 Occurrences starting 03/12/2025 until 03/12/2026 XR HIP RIGHT AP LATERAL W AP PELVIS Imaging Routine Hip injury, right, initial encounter 1 Occurrences starting 03/12/2025 until 03/12/2026 documented as of this encounter Goals Goal Patient Goal Type Associated Problems Recent Progress Patient-Stated? Author Blood Pressure < 140/90 Blood Pressure 126/82(2024 4:26 PM EST) No Juana Bailey APRN Maintain a healthy diet, exercise regularly and maintain an ideal body weight General No Noelle Yeh RMA BMI (Calculated) < 30 General 33.4(03/12/20 25 4:26 PM EST) No Juana Bailey APRN Stay Tobacco Free Lifestyle No Juana Bailey APRN HEMOGLOBIN A1C < 7.0 Result Component 5.9( 10:54 AM EDT) No Juana Bailey APRN documented as of this encounter Visit Diagnoses Diagnosis Rib injury- Primary Sprain of ribs Hip injury, right, initial encounter documented in this encounter Care Teams Strawhat Blocking Operator Relationship Specialty Start Date End Date Juana Bailey [place] [place] [address] PCP - General Nurse Practitioner-Family 08/29/22 documented as of this encounter
[2025-04-08 14:06] VITALS: BP 115/70; PULSE 70; RESP 15; TEMP 36.7; O2SAT 98; BMI 32.1
--- OUTSIDE RECORDS SUMMARY | 2025-04-08 14:07 | XMS_ITS | Encounter Summary ---
Author Organization [place] [address] Care Team Providers Care Flight Coordinator Name Role Phone Juana Bailey APRN Primary Care Provider +1- [phone] Reason for Visit * Reason Onset Date Comments Prior Authorization 02/18/2025 PA status ne eded on Ozempic- please call to update pt Encounter Details Date Type Department Care Team (Late st Contact Info) Description 02/18/2025 Telephone SEP Nati PATEL [address] [place] [address] Juana Bailey APRN [address] [place] [address] Prior Authorization (PA status needed on [...] Date Recorded PHQ-2 Total Score 0 11/20/2024 [facility] [place] of Occupat ional Health - Occupational Stress [...] Author No 11/20/2024 10:18 AM EDT Sarah Crwoell CCMA documented as of this encounter [...] alternate medication: No. Pharmacy Name & Location: [facility] - [place] [address] - [address] [address] s - [phone] Is the patient???s insurance plan that is [...] on filedocumented in this encounter Care Teams Flight Coordinator Relationship Specialty Start Date End Date Juana Bailey APRN [address] [place] [address] PCP - General Nurse Practitioner-Family 08/29/22 documented as of this encounter
--- OUTSIDE RECORDS SUMMARY | 2025-04-08 14:07 | XMS_ITS | Encounter Summary ---
Author Organization [place] [address] Care Team Providers Care Mechanical Engineering Technologist Name Role Phone Juana Bailey APRN Primary Care Provider Reason for Visit * Reason Onset Date Comments Results 03/22/2025 XR HIP RIGHT AP LATERAL W AP PELVIS & XR RIBS RIGHT 2 VW Follow Up 03/22/2025 Follow up Encounter Details Date Type Department Care Team (Late st Contact Info) Description 03/22/2025 Telephone SEP Nati [address] [place] [address] Juana Bailey APRN [address] [place] [address] Results (XR HIP RIGHT AP LATERAL W AP PELVIS & XR RIBS RIGHT 2 VW/); Follow Up (Follow up ) Social History Tobacco Use Types Packs/Day [...] PHQ-2 Total Score 0 11/20/2024 [facility] [place] of Occupat ional Health - Occupational Stress [...] 11/20/2024 10:18 AM EDSarah Al CCMA * Does this person have [...] Telephone Encounter - Luh Webb MA - 03/24/2025 4:10 PM EST Images from the original note were not included. Select the most appropriate reason for this telephone message: Patient Calling for Results Who is calling? Patient Patient called for results on Imaging XR Hip Right, XR Ribs Right Which Provider ordered the test? Dr. Endy Ramirez Date of test: 03/2025 Medications/Orders Pended by office Needed (if yes, list medications and/or orders): N/A Medications/Orders that still need to be ordered (if yes, list medications and/or orders): N/A Pharmacy Location Verified: N/A Other: Results given please update result note Patient Concerns/Questions/Response: None Additional Information: FYI: No further work up routing to dick as completed. Thank you. * Telephone Encounter - Sarah Crowell CCMA - 03/24/2025 2:43 PM EST No answer * Telephone Encounter - Juana Bailey APRN - 03/24/2025 12:39 PM EST Received xray results this morning - no fractures. May take some time to heal - rest, alternative heat and ice, consider use of a muscle rub. * Telephone Encounter - Hafsa Phillips MA - 03/23/2025 1:56 PM EST Left detailed message, I have not gotten anything from them still. * Telephone Encounter - Tyrone Major RMA - 03/23/2025 10:36 AM EST Select the most appropriate reason for this telephone message: Follow Up Follow Up Who is Calling:Patient Return Method of Communication:Phone call What is the caller following up on (make sure to reference any prior documentation/encounter):Calling in to check on the status of this Further follow-up needed?:Yes Additional Information:Please Advise Patient/Caller, thank you. * Telephone Encounter - Hafsa Phillips MA - 03/22/2025 1:21 PM EST I have not received these yet. * Telephone Encounter - Tito Pal MA - 03/22/2025 1:13 PM EST Have you all received these yet? * Telephone Encounter - Hattie Henderson MA - 03/22/2025 12:02 PM EST Select the most appropriate reason for this telephone message: Test Result(s) Who is Calling: Patient Return Method of Communication: Phone Call Purpose of call: Patient seeking results Type of test: Imaging-XR Hip right and XR Ribs Date of test: Pt states she's unsure what day but it was 03/17/25 or 03/18/25 as she had test performed at [facility]. Who ordered the test: Endy Ramirez MD Where was test performed: Other [facility] Additional Information: Pt is calling to see if the results on the following xrays have been received. Please advise, thank you. documented in this encounter Plan [...] on filedocumented in this encounter Care Teams Mechanical Engineering Technologist Relationship Specialty Start Date End Date Juana Bailey APRN [address] [place] [address] PCP - General Nurse Practitioner-Family 08/29/22 documented as of this encounter
--- OUTSIDE RECORDS SUMMARY | 2025-04-08 14:07 | XMS_ITS | Encounter Summary ---
Author Organization [place] [address] Care Team Providers Care Commercial Kitchen Service Technician Name Role Phone Juana Bailey APRN Primary Care Provider [phone]- [phone] Reason for Visit * Reason Comments Medication Refill Encounter Details Date Type Department Care Team (Late st Contact Info) Description 02/09/2025 Refill SEP Nati [address] [place] [id number] Juana Bailey APRN [address] [facility] [place] [address] Medication Refill Social History Tobacco Use Types Packs/Day Years Used Date Smoking Tobacco: Never Smokeless Tobacco: Current Snuff Alcohol Use Standard Drinks/Week Comments Not Currently 0 (1 standard drink = 0.6 oz pur e alcohol) Overall Financial Resource Strain ([facility]) Ans[place] r Date Recorded How hard is it for you to pa y for the very basics like food, housing, medical care, and heating? Not very hard 03/05/2023 PHQ-2 Answer Date Recorded PHQ-2 Total Score 0 11/20/2024 [facility] [place] of Occupat ional Health - Occupational Stress [...] documented as of this encounter Care Teams Commercial Kitchen Service Technician Relationship Specialty Start Date End Date Juana Bailey [place] [address] [place] [address] PCP - General Nurse Practitioner-Family 08/29/22 documented as of this encounter
--- OUTSIDE RECORDS SUMMARY | 2025-04-08 14:07 | XMS_ITS | Encounter Summary ---
Author Organization [place] [address] Care Team Providers Care Commutator Inspector Name Role Phone Juana Bailey APRN Primary Care Provider [phone]- [phone] Reason for Visit * Reason Onset Date Comments Other 03/15/2025 Needing xray ord ers signed Relaying Information 03/15/2025 xray Encounter Details Date Type Department Care Team (Late st Contact Info) Description 03/15/2025 Telephone SEP Nati [address] [place] [address] Juana Bailey APRN [address] [place] [address] Other (Needing xray orders signed); Relaying [...] Recorded PHQ-2 Total Score 0 11/20/2024 [facility] [place] of Occupat ional Health - Occupational [...] is the caller relaying: xrays faxed to [facility] Further action needed: No Additional Information:na * Telephone Encounter - Hafsa Phillips MA - 03/16/2025 8:56 AM EST xrays faxed to [facility] * Telephone Encounter - Juana Bailey [...] they calling: Pt states she was at [facility] to have xray performed and notes xray [...] on filedocumented in this encounter Care Teams Commutator Inspector Relationship Specialty Start Date End Date Juana Bailey APRN [address] [place] [address] PCP - General Nurse Practitioner-Family 08/29/22 documented as of this encounter
--- OUTSIDE RECORDS SUMMARY | 2025-04-08 14:07 | XMS_ITS | Encounter Summary ---
Author Organization [place] [address] Care Team Providers Care Cell Tuber Hand Name Role Phone Juana Bailey APRN Primary Care Provider +1- [phone] Reason for Visit * Reason Onset Date Comments Other 02/22/2025 Call back Patient Returning Call 02/22/2025 Calling b ack Encounter Details Date Type Department Care Team (Late Contact Info) Description 02/22/2025 Telephone SEP Nati [address] [place] [address] Juana Bailey APRN [address] [place] [address] Other (Call back); Patient Returning Call [...] Date Recorded PHQ-2 Total Score 0 11/20/2024 [facility] [place] of Occupat ional Health - Occupational Stress [...] Blood Pressure 126/82(2024 4:26 PM EST) No LynnJuana, PHOTO LAB TECHNICIAN Maintain a healthy diet, exercise regularly and maintain an ideal body weight General No Noelle Yeh RMA BMI (Calculated) < 30 General 33.4(03/12/20 4:26 PM EST) No [place], Juana, PHOTO LAB TECHNICIAN Stay Tobacco Free Lifestyle No GreenwaterArnoldoJuana, PHOTO LAB TECHNICIAN HEMOGLOBIN A1C < 7.0 Result Component 5.9( 10:54 AM EDT) No Juana Bailey PHOTO LAB TECHNICIAN documented as of this encounter Visit Diagnoses Not on filedocumented in this encounter Care Teams Cell Tuber Hand Relationship Specialty Start Date End Date Juana Bailey APRN [address] [place] [address] PCP - General Nurse Practitioner-Family 08/29/22 documented as of this encounter
--- OUTSIDE RECORDS SUMMARY | 2025-04-08 14:07 | XMS_ITS | Clinical Summary ---
Author Organization Healthcare Address [address] [place] [address] Care Team Providers Care Timber Mill Worker Name Role Phone Gamal Queen MD Primary Care Provider [phone] Family History 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 Relation Name Comments [...] of Treatment Not on file Care Teams Timber Mill Worker Relationship Specialty Start Date End Date Gamal Queen MD [facility] [place] [address] PCP - General 08/26/20
--- OUTSIDE RECORDS SUMMARY | 2025-04-08 14:07 | XMS_ITS | Encounter Summary ---
Author Organization [place] [address] Care Team Providers Care Studio Manager Name Role Phone Juana Bailey APRN Primary Care Provider [phone]- [phone] Reason for Visit * Reason Onset Date Comments Medication Management 01/04/2025 CPASFYI: P harmacy change per patient request, verified original Rx is cancelled, Rx resent to requested pharmacy.No further workup needed. Thank you. Encounter Details Date Type Department Care Team (Late st Contact Info) Description 01/04/2025 Telephone SEP Nati PATEL [address] [place] [address] Juana Bailey APRN [address] [facility] [place] [address] Medication Management (CPASFYI: Pharmacy change per [...] Date Recorded PHQ-2 Total Score 0 11/20/2024 [facility] [place] of Occupat ional Health - Occupational Stress [...] encounter details CC spoke with Sabrina at [facility] and confirmed the following Rx has been cancelled. Per pt request, Rx re-sent to: [facility] - [place] [address] - [address] [address] D - [phone] [[id number]] Is medication requested to be corrected prescribed from hospitalist/ER Physician?: No Last appointment date: 01/01/25 Pharmacy: [facility] [place] [address] - [address] [address] S [phone] [[id number]] Return Method of Communication: N/A Additional Information: [...] documented as of this encounter Care Teams Studio Manager Relationship Specialty Start Date End Date Juana Bailey APRN [address] [place] [address] PCP - General Nurse Practitioner-Family 08/29/22 documented as of this encounter
--- OUTSIDE RECORDS SUMMARY | 2025-04-08 14:08 | XMS_ITS | Clinical Summary ---
[facility] Address [address] [place] [address] Care Team Providers Care Raw Cheese Worker Name Role Phone Klarissa Napier PE TEACHER Primary Care Provider +1- [phone] Social History Tobacco Use Types Packs/Day Years [...] 02/13/2022 INFLUENZA VACCINE 11/13/2024 01/15/2019 Care Teams Raw Cheese Worker Relationship Specialty Start Date End Date Klarissa Napier APRN [address] [place] [address] PCP - General 11/25/14
--- OUTSIDE RECORDS SUMMARY | 2025-04-08 14:08 | XMS_ITS | Encounter Summary ---
Author Organization [place] [address] Care Team Providers Care Clinical Implementation Specialist Name Role Phone Juana Bailey APRN Primary Care Provider [phone]- [phone] Reason for Visit * Reason Comments Medication Refill Encounter Details Date Type Department Care Team (Late st Contact Info) Description 03/02/2025 Refill SEP Nati [address] [place] [phone] Juana Bailey APRN [address] [place] [address] Medication Refill Social History Tobacco Use Types Packs/Day Years Used Date Smoking Tobacco: Never Smokeless Tobacco: Current Snuff Alcohol Use Standard Drinks/Week Comments Not Currently 0 (1 standard drink = 0.6 oz pur e alcohol) Overall Financial Resource Strain ([facility]) [place] r Date Recorded How hard is it for you to pa y for the very basics like food, housing, medical care, and heating? Not very hard 03/05/2023 PHQ-2 Answer Date Recorded PHQ-2 Total Score 0 11/20/2024 [facility] [place] of Occupat ional Health - Occupational Stress [...] to requesting pharmacy. Routed to [facility] if an appointment is needed. documented in [...] as of this encounter Care Teams Clinical Implementation Specialist Relationship Specialty Start Date End Date Juana Bailey APRN [address] [place] [address] PCP - General Nurse Practitioner-Family 08/29/22 documented as of this encounter
--- OUTSIDE RECORDS SUMMARY | 2025-04-08 14:08 | XMS_ITS | Encounter Summary ---
Author Organization [place] [address] Care Team Providers Care Home Decorator Name Role Phone Juana Bailey FORGING PRESS OPERATOR Primary Care Provider [phone] Encounter Details Date Type Department Care Team (Late st Contact Info) Description 03/01/2025 Results Follow-Up SEP Nati [facility] [place] [address] Endy Ramirez MD [address] [facility] [place] [address] URINE CULTURE (NO STAIN) Social History [...] Date Recorded PHQ-2 Total Score 0 11/20/2024 [facility] [place] of Occupat ional Health - Occupational Stress [...] documented as of this encounter Care Teams Home Decorator Relationship Specialty Start Date End Date Juana Bailey APRN [address] [place] [address] PCP - General Nurse Practitioner-Family 08/29/22 documented as of this encounter
--- OUTSIDE RECORDS SUMMARY | 2025-04-08 14:08 | XMS_ITS | Encounter Summary ---
Author Organization [place] [address] Care Team Providers Care Salon Sales Consultant Name Role Phone Juana Bailey APRN Primary Care Provider Reason for Visit * Reason Onset Date Comments Results 12/11/2024 BMP Encounter Details Date Type Department Care Team (Late st Contact Info) Description 12/11/2024 Results Follow-Up SEP Nati [address] [place] [address] Juana Bailey APRN [address] [place] [address] BASIC METABOLIC PANEL Social History Tobacco Use Types Packs/Day Years Used Date Smoking Tobacco: Never Smokeless Tobacco: Current Snuff Alcohol Use Standard Drinks/Week Comments Not Currently 0 (1 standard drink = 0.6 oz pur e alcohol) Overall Financial Resource Strain ([facility]) Answe r Date Recorded How hard is it for you to pa y for the very basics like food, housing, medical care, and heating? Not very hard 03/05/2023 PHQ-2 Answer Date Recorded PHQ-2 Total Score 0 11/20/2024 [facility] [place] of Occupat ional Health - Occupational [...] Miscellaneous Notes * Telephone Encounter - Tyrone Majro RMA - 12/15/2024 9:15 AM EDT [facility] [...] on filedocumented in this encounter Care Teams Salon Sales Consultant Relationship Specialty Start Date End Date Juana Bailey APRN [address] [place] [address] PCP - General Nurse Practitioner-Family 08/29/22 documented as of this encounter
--- OUTSIDE RECORDS SUMMARY | 2025-04-08 14:08 | XMS_ITS | Encounter Summary ---
Author Organization [place] [address] Care Team Providers Care Machine Operator Picker Name Role Phone Juana Bailey APRN Primary Care Provider [phone]- [phone] Reason for Visit * Reason Onset Date Comments Medication Management 03/04/2025 CPASFYI: V erified Rx was already picked up by pt. No further workup needed. Thank you. Encounter Details Date Type Department Care Team (Late st Contact Info) Description 03/04/2025 Telephone SEP Nati PATEL [address] [place] [address] Juana Bailey APRN [address] [facility] [place] [address] Medication Management (CPASFYI: Verified Rx was [...] Date Recorded PHQ-2 Total Score 0 11/20/2024 [facility] - Occupational Stress Questionnaire Answer Date Recorded [...] details CC spoke with Sarah again at [facility] & confirmed Rx was received on 03/01/25 and pt picked up same day at 4:48 pm. Pt informed pt bottle will say Cephalexin because that is the generic for Keflex. Pt put her daughter Star on the phone who confirmed pt does have the Rx. Is medication requested to be corrected prescribed from hospitalist/ER Physician?: No Last appointment date: 02/25/25 Pharmacy: [facility] - [place] [address] - [address] [address] [address] - [phone] [address] [address] [place] [address] LALY #: -- Additional Information: FYI: No [...] encounter details CC spoke with Sarah at [facility] & confirmed pt already picked up Rx on 03/01/25. Pt swears she didn't pick it up, but will double check what she has at home. Is medication requested to be corrected prescribed from hospitalist/ER Physician?: No Last appointment date: 02/25/25 Pharmacy: [facility] [place] [address] - [address] - [phone] [place] [address], [place] [address] LALY #: -- Additional Information: FYI: No [...] filedocumented in this encounter Care Teams Machine Operator Picker Relationship Specialty Start Date End Date Juana Bailey APRN [address] [place] [address] PCP - General Nurse Practitioner-Family 08/29/22 documented as of this encounter
--- OUTSIDE RECORDS SUMMARY | 2025-04-08 14:08 | XMS_ITS | Clinical Summary ---
Author Organization [facility] Address [address] [place] [address] Phone Care Team Providers Care Environmental Health Officer Name Role Phone Juana Bailey ZAHRA Primary Care Provider Allergies Active Allergy Reactions Criticality Noted Date Comments Acetaminophen-Codeine Hives 11/04/2024 Medications fish oil OTC (OMEGA-3 DHA-EPA 300 MG) 300-1,000 mg Oral Capsule, Delayed Release(E.C.) Take 2 g by mouth daily. Active b dsxbvah-S-zufhi acid (NEPHROCAP) 1 mg Oral Capsule Take 1 Capsule by mouth daily. Active oxyCODONE-acetamin ophen (PERCOCET) 10-325 mg Oral Tablet Take 1 Tablet by mouth every [address]. [address] Zelaya Active albuterol (PROVENTIL HFA;VENTOLIN HFA) 90 mcg/actuation Inhl HFA Aerosol InhalerIndications :Acute bronchitis, unspecified organism Inhale 2 Puffs into the lungs every 4 hours as needed for Wheezing. 1 Each 2 3 Active loratadine (CLARITIN) 10 mg Oral Tablet TAKE ONE TABLET BY MOUTH ONCE A DAY 30 Tablet 4 Active cyanocobalamin 1,000 mcg Oral Tablet Take 1 Tablet by mouth daily. 30 Tablet 4 Active Zinc Acetate, Oral, 50 mg (zinc) Oral Capsule Take 50 mg by mouth daily. 30 Capsule 4 Active ascorbic acid, vitamin C, (VITAMIN C) 500 mg Oral Tablet Take 2 Tablets by mouth daily. 60 Tablet 4 Active Cholecalciferol, Vitamin D3, 125 mcg (5,000 unit) Oral Capsule Take 5,000 Units by mouth daily. 30 Capsule 4 Active allopurinoL (ZYLOPRIM) 300 mg Oral TabletIndications: Elevated uric acid in blood TAKE ONE TABLET BY MOUTH ONCE A DAY 100 Tablet 2 5 Active minoxidiL (LONITEN) 2.5 mg Oral TabletIndications: Hair loss TAKE ONE TABLET BY MOUTH ONCE A DAY 30 Tablet 5 5 Active bempedoic acid-ezetimibe (NEXLIZET) 180-10 mg Oral TabletIndications: Type 2 diabetes mellitus with hyperlipidemia (HCC),Dyslipidemia ,ASHD (arteriosclerotic heart disease) Take 1 Tablet by mouth daily. 90 Tablet 3 5 Active metoprolol (LOPRESSOR) 50 mg Oral Tablet TAKE ONE TABLET BY MOUTH 2 TIMES A DAY 200 Tablet 2 5 Active ezetimibe (ZETIA) 10 mg Oral TabletIndications: Type 2 diabetes mellitus with hyperlipidemia (HCC),Statin myopathy TAKE ONE TABLET BY MOUTH ONCE A DAY 90 Tablet 3 5 Active gabapentin (NEURONTIN) 400 mg Oral Capsule Take 400 mg by mouth nightly. at bedtime 5 Active omeprazole (PRILOSEC) 20 mg Oral Capsule, Delayed Release(E.C.) TAKE 1 CAPSULE BY MOUTH EVERY DAY 100 Capsule 2 5 Active flecainide (TAMBOCOR) 50 mg Oral Tablet TAKE 1 TABLET BY MOUTH TWICE DAILY 60 Tablet 5 5 Active hydroCHLOROthiazid e 25 mg Oral TabletIndications: Peripheral edema TAKE 1 TABLET BY MOUTH ONCE A DAY 100 Tablet 2 5 Active semaglutide (OZEMPIC) 2 mg/dose (8 mg/3 mL) SubQ Pen InjectorIndication s:Type 2 diabetes mellitus with hyperlipidemia (HCC) Inject 2 mg under the skin once a week. 3 mL 11 5 Active ipratropium (ATROVENT) 21 mcg (0.03 %) Nasl Troutman, Non-AerosolIndicat ions:Acute bacterial sinusitis 2 Sprays by Nasal route 3 times daily. 30 mL 2 5 Active SUMAtriptan (IMITREX) 100 mg Oral TabletIndications: Migraine without aura and without status migrainosus, not intractable Take 1 Tablet by mouth daily as needed for Migraine. 8 Tablet 2 Active topiramate (TOPAMAX) 50 mg Oral Tablet TAKE 1 TABLET BY MOUTH 2 TIMES A DAY 60 Tablet 2 5 Active hydrOXYzine (VISTARIL) 25 mg Oral Capsule Take 1 Capsule by mouth 3 times daily as needed. 30 Capsule 5 Active ergocalciferol (DRISDOL) 1,250 mcg (50,000 unit) Oral Capsule TAKE 1 CAPSULE BY MOUTH ONE TIME PER WEEK 4 Capsule 5 5 Active traZODone (DESYREL) 50 mg Oral TabletIndications: Insomnia, persistent TAKE ONE TABLET BY MOUTH EVERY NIGHT 30 Tablet 2 5 Active Active Problems Problem Noted Date Diagnosed [...] right thoracic pain. Sees pain mgmt at [facility] Will get outpt xray and have her [...] Encounters Date Type Department Care Team Description 03/22/[address] [place] [phone] Juana Bailey APRN Results (XR HIP RIGHT AP LATERAL W AP PELVIS & XR RIBS RIGHT 2 VW/); Follow Up (Follow up ) 03/15/[address] [place] [phone] Juana Bailey APRN Other (Needing xray orders signed); Relaying Information (xray) 03/12/2025 4:30 PM EST Office Visit [address] [place] [phone] Endy Ramirez MD Rib injury (Primary Dx); Hip injury, right, initial encounter 03/04/[address] [place] [phone] Juana Bailey APRN Medication Management (CPASFYI: Verified Rx was already picked up by pt. No further workup needed. Thank you./) 03/02/[address] [place] [phone] Juana Bailey APRN Medication Refill 03/01/2025 Results Follow-Up [address] [place] [address] Endy Ramirez MD URINE CULTURE (NO STAIN) 02/28/[address] [place] [phone] [place], Juana, CAFETERIA SERVER Medication Refill 02/25/2025 11:00 AM EST Office Visit [address] [place] [phone] Endy Ramirez MD UTI (urinary tract infection), uncomplicated (Primary Dx) 02/22/[address] [place] [phone] [place], [place], CAFETERIA SERVER Other (Call back); Patient Returning Call (Calling back ) 02/18/[address] [place] [phone] [place], [place], CAFETERIA SERVER Prior Authorization (PA status needed on Ozempic- please call to update pt) 02/09/[address] [place] [phone] [place], [place], CAFETERIA SERVER Medication Refill 01/29/2025 1:30 PM EDT Office Visit [address] [place] [phone] Endy Ramirez MD Acute bacterial sinusitis (Primary Dx); Cough, unspecified type; Migraine without aura and without status migrainosus, not intractable 01/21/[address] [place] [phone] [place], [place], CAFETERIA SERVER Refill (Ozempic) 01/19/[address] [place] [phone] [place], [place], CAFETERIA SERVER Medication Refill from Last 3 Months Immunizations [...] Date Recorded PHQ-2 Total Score 0 11/20/2024 [facility] of Occupat ional Health - Occupational Stress [...] 2) 2018 COVID-19 Vaccine (1 - season) 2024 Influenza Vaccine (#1) 2024 9, 01/13/2015, 01/16/2012 Cologuard 04/16/2025 04/16/2022 Hemoglobin A1c 05/23/2025 11/20/2024, 04/16, 03/19/2024, Additional history exists Annual Wellness Exam 11/20/2025 11/20/2024 Kidney Health: uACR 11/20/2025 11/20/2024, 4 Lipids 11/20/2025 11/20/2024, 04/16, 10/24/2023, Additional history [...] Blood Pressure 126/82(2024 4:26 PM EST) No [place], CAFETERIA SERVER Maintain a healthy diet, exercise regularly and maintain an ideal body weight General No Noelle Yeh RMA BMI (Calculated) < 30 General 33.4(03/12/20 4:26 PM EST) No [place], [place], CAFETERIA SERVER Stay Tobacco Free Lifestyle No Lynn Juana, CAFETERIA SERVER HEMOGLOBIN A1C < 7.0 Result Component 5.9( 10:54 AM EDT) No Lynn Juana CAFETERIA SERVER Procedures Procedure Name Priority Date/Time Associated Diagnosis [...] Screening for colon cancer MM MAMMO DIGITAL MAROC SCREEN BILAT Routine 08/31/2024 11:36 AM EDT Encounter for screening 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 cancer REGULATORY COMPLIANCE DIRECTOR CYTOLOGY REQUEST (PAP ONLY) Routine 05/22/2023 9:58 AM EST Cervical cancer screening Screening for STDs (sexually transmitted diseases) HM DIABETES EYE EXAM Routine 02/20/2022 8:43 AM EST from Last 3 Months or Most Recently Relevant to Health Maintenance Results * (ABNORMAL) URINE CULTURE (NO STAIN) (02/25/2025 10:40 AM EST) Culture Positive Growth(A) 02/27/2025 11:20 AM EST [facility] [email or web address] Culture 10,000 CFU/mL Escherichia coli SUSCEPTIBI LITY RESULT 02/27/2025 11:20 AM EST [facility] [employer] Urine STRUCTURE OF URINARY TRACT PROPER / [...] GENERAL ORDERAB LES Final Result [facility], [address] , [facility] [address] * (ABNORMAL) SEP URINALYSIS POC (02/25/2025 10:32 [...] OF CARE TEST ORDERABLES Final Result [facility] [address] [place] [address] * SCANNED LABS (02/04/2025 10:05 PM EDT) Only the most recent of2 resultswithin the time period is included. 02/04/2025 10:0 5 PM EDT us Unknown Provider HEMATOLOGY ORDERABLES Final Res ult * BASIC METABOLIC PANEL (12/11/2024 10:15 AM EDT) Sodium 139 136 - 145 mmol/L 12/11/2024 4:32 PM EDT [facility] Potassium 3.7 3.5 - 5.0 mmol/L 12/11/2024 4:32 PM EDT [facility] Chloride 104 98 - 107 mmol/L 12/11/2024 4:32 PM EDT [facility] Total CO2 22 22 - 29 mmol/L 12/11/2024 4:32 PM EDT [facility] Anion Gap 13 7 - [...] 12/11/2024 4:32 PM EDT [facility] eGFR (CKD-EPIcr 2020) 96 >=60 mL/min/1.7 3 m2 12/11/2024 4:32 PM EDT [facility] Comment:Estimated GFR was ca lculated using the CKD-EPIcr (2020) equation refit without race. The equation is recommended by the National Kidney Foundation - [place] [employer] Neph[employer] Task Force. Blood VENOUS BLOOD / Unknown Venipuncture / Unknown 12/11/2024 10:15 AM EDT 12/11/2024 10:15 AM EDT Juana Bailey CAFETERIA SERVER CHEMISTRY ORDERABLES Final Result [facility] [address] [facility] , [address] [place] [id number] * (ABNORMAL) LIPID PANEL REFLEX (11/20/2024 10:54 AM EDT) Cholesterol 219(H) <200 mg/dL 11/20/2024 3:56 PM EDT [facility] Comment: < 200 Desirable 200 - 239 Borderline High >= 240 High Triglyceride 184(H) <150 mg/dL 11/20/2024 3:56 PM EDT [facility] [employer] [facility] Comment: < 150 Normal 150 - 199 Borderline High 200 - 499 High >= 500 Very High HDL 54 >=40 mg/dL 11/20/2024 3:56 PM EDT [facility] Comment: > 60 Optimal 40 - 60 Acceptable < 40 Low LDL Calculated 132(H) <100 mg/dL 11/20/2024 3:56 PM EDT [facility] [employer] [facility] Comment: < 100 Optimal 100 - 129 Near or above optimal 130 - 159 Borderline High 160 - 189 High >= 190 Very High The National Institutes of Health (NIH) equation is used for all lipid panels that report calculated LDL (LDL-C). Non-HDL-C Calculated 165(H) <=129 mg/dL 11/20/2024 3:56 PM EDT [facility] [employer] [facility] Comment: <130 Desirable 130-159 Above Desirable 160-189 Borderline High 190-219 High >= 220 Very High Fasting Specimen? Yes None 025 3:56 PM EDT [facility] [employer] [facility] Blood VENOUS BLOOD / Unknown Venipuncture / Unknown 11/20/2024 10:54 AM EDT 11/20/2024 10:54 AM EDT Juana Bailey APRN CHEMISTRY ORDERABLES Final Result [facility] [employer] [facility] [address] [facility] , [place] [address] * (ABNORMAL) HEMOGLOBIN A1C (11/20/2024 10:54 AM EDT) [facility] Hgb A1C 5.9(H) 4.2 - 5.6 % 11/20/2024 4:02 PM EDT [facility] [employer], [facility] Est. Avg Glucose 123 mg/dL 11/20/2024 4:02 PM EDT [facility] [employer] [facility] Blood VENOUS BLOOD / Unknown Venipuncture / Unknown 11/20/2024 10:54 AM EDT 11/20/2024 10:54 AM EDT Narrative [facility] [employer] [facility] - 11/20/2024 4:02 PM EDT REFERENCE RANGE: Normal: 4.0-5.6% Pre-diabetes: 5.7-6.4% Provisional diagnosis of diabetes: >6.4% Hgb F>10% and anything which shortens red cell survival, such as hemolytic anemia, or unstable hemoglobin variants such as HbSS, HbSC, or HbCC, will lower the HbA1c value associated with a given level of glycemic control. Juana Lynn CAFETERIA SERVER CHEMISTRY ORDERABLES Final Result Performing Organization Address [facility] de Phone Number [facility] [employer] [address] , [place] [address] * MICROALBUMIN/CREATININE RATIO URINE (11/20/2024 10:38 AM EDT) Urine Albumin 68.9 mg/L 11/20/2024 4:46 PM EDT [facility] Urine Creatinine 284.0 mg/dL 11/20/2024 4:46 PM EDT [facility] Ur Albumin/Creat Ratio 24 0 - 30 mg/g 11/20/2024 4:46 PM EDT [facility] Urine STRUCTURE OF URINARY TRACT PROPER / Unknown 11/20/2024 10:38 AM EDT 11/20/2024 10:38 AM EDT Juana [place] CAFETERIA SERVER URINE ORDERABLES Final Resu lt Performing Organization Address [facility] de Phone Number [facility] [employer] [address] , [place] [address] * COLONOSCOPY (11/04/2024 2:28 PM EDT) Anatomical [...] MD Performing Provider IRVIN Lamar CRNA, PETER Dopster Bárbara Leyva, plumbing engineering draftsperson Nurse Medications See Anesthesia Record. Preprocedure A [...] EDT Impressions 09/08/2024 10:50 AM EDT Negative ([id number]-Ervckhhb-7) RECOMMENDATION: Routine Screening Mammogram in 1 Year Bilateral . . COMMENTS: DISCLAIMER *The patient was notified by MyChart or mail of the results for this examination. *The patient's information was entered into a reminder system with a target due date for the next breast imaging, in accordance with the [place] [employer] and the Society of [...] for screening mammogram for malignant neoplasm of [id number]-CM COMPARISON STUDIES: Outside films from [facility] dated 09/26/2020. TISSUE DENSITY: There are scattered areas of fibroglandular density. FINDINGS: No mammographic evidence of malignancy. Procedure Note Allie Higginbotham MD - 09/08/2024 EXAM: MM MAMMO DIGITAL MARCO SCREEN BILAT EXAM DATE: 08/31/2024 11:36 AM INDICATION: Z12.31-Encounter for screening mammogram for malignantneoplasm of [id number]-YEX-32-CM COMPARISON STUDIES: Outside films from [facility] dated09/26/2020. TISSUE DENSITY: There are scattered areas of fibroglandular density. FINDINGS: No mammographic evidence of malignancy. IMPRESSION: Negative ([id number]) RECOMMENDATION: Routine Screening Mammogram in 1 Year Bilateral . . COMMENTS: DISCLAIMER *The patient was notified by MyChart or mail of the results for this examination. *The patient's information was entered into a reminder system with atarget due date for the next breast imaging, in accordance with the [place] [employer] and the Society of Breast Imaging recommendations. *Breast Imaging has a false negative rate of 15%. *Any patient with a palpable abnormality, unexplained by breast imaging,should be managed on a clinical basis by the attending physician. Juana Bailey APRN IM MAMMOGRAPHY ORDERABLES Final Result * REGULATORY COMPLIANCE DIRECTOR CYTOLOGY REQUEST (PAP ONLY) (05/22/2023 9:58 AM EST) CASE REPORT Gynecologic Cytology Report Case: [id number] Authorizing Provider: Juana Bailey APRN Collected: 05/22/2023957 Ordering Location: [facility] Received: 05/22/2023957 First Screen: Misael, Jose Van, CT Specimen: LIQUID-BASED PAP - CERVICAL/ENDOCERV ICAL, Cervix, Endocervical 05/25/2023 1:17 PM EST [facility] PAP FINAL DIAGNOSIS Negative for intraepithelial lesion or malignancy 05/25/2023 1:17 PM EST [facility] at 1317 EST MICROSCOPIC DESCRIPTION Microscopic examination is performed and the findings corroborate the diagnosis. 05/25/2023 1:17 PM EST [facility] PAP SMEAR ADEQUACY Satisfactory for evaluation 05/25/2023 1:17 PM EST [facility] PAP ORGANISMS NOTED Shift in claus suggestive of bacterial vaginosis. 05/25/2023 1:17 PM EST [facility] ENDOCERVICAL T-ZONE Transformation Zone Absent. This is not unusual in a post-menopausal woman. 05/25/2023 1:17 PM EST [facility] EMBEDDED IMAGES 1:17 PM EST [facility] PAP DISCLAIMER The Pap Smear is a screening test that aids in the detection of cervical cancer and cancer precursors. Both false positive and false negative results can occur. The test should be used at regular intervals, and positive results should be confirmed before definitive therapy. Processed using the ThinPrep Air Hole Driller Automated cytology screening device ([employer]). 05/25/2023 1:17 PM EST [facility] Thin Prep ENDOCERVICAL STRUCTURE / Unknown 05/22/2023 9:58 AM EST 05/22/2023 9:58 AM EST Juana Bailey APRN CYTOLOGY ORDERABLES Final R esult [facility] [address] [place] [address] * DIABETES EYE EXAM (02/20/2022 8:43 AM EST) Left Diabetic Retinopathy Not Present Present/Not Present SEP OFFICE Right Diabetic Retinopathy Not Present Present/Not Present SEP OFFICE Historical Provider Generic HEALTH MAINTENANCE E dited Result - Final SEP OFFICE from Last 3 Months or Most Recently Relevant to Health Maintenance Insurance [address] [facility] [place] [id number] [facility] [place] [address] [facility] [place] [id number] [facility] [address] Care Teams Environmental Health Officer Relationship Specialty Start Date End Date Juana [place] [address] [place] [address] PCP - General Nurse Practitioner-Family 08/29/22
--- OUTSIDE RECORDS SUMMARY | 2025-04-08 14:08 | XMS_ITS | Encounter Summary ---
Author Organization [place] [address] Care Team Providers Care Bun Icer Name Role Phone Juana Bailey APRN Primary Care Provider [phone] Reason for Visit * Reason Comments Medication Refill Encounter Details Date Type Department Care Team (Late st Contact Info) Description 02/28/2025 Refill SEP Nati [address] [place] [phone] Juana Bailey APRN [address] [place] [address] Medication Refill Social History Tobacco Use Types Packs/Day Years Used Date Smoking Tobacco: Never Smokeless Tobacco: Current Snuff Alcohol Use Standard Drinks/Week Comments Not Currently 0 (1 standard drink = 0.6 oz pur e alcohol) Overall Financial Resource Strain ([facility]) Answe r Date Recorded How hard is it for you to pa y for the very basics like food, housing, medical care, and heating? Not very hard 03/05/2023 PHQ-2 Answer Date Recorded PHQ-2 Total Score 0 11/20/2024 [facility] of Occupat ional Health - Occupational Stress [...] documented as of this encounter Care Teams Bun Icer Relationship Specialty Start Date End Date Juana Bailey APRN [address] [place], [place] [address] PCP - General Nurse Practitioner-Family 08/29/22 documented as of this encounter
--- NOTE | 2025-04-08 14:11 | XR_ITS ---
PROCEDURE INFORMATION: Exam: XR Chest Exam date and time: 04/08/2025 2:20 PM Age: 54 years old Clinical indication: Shortness of breath TECHNIQUE: Imaging protocol: Radiologic exam of the chest. Views: 2 views. COMPARISON: CR XR RIBS RT MIN 3V W CXR1V 03/17/2025 3:16 PM FINDINGS: Lungs: Unremarkable. No consolidation. Pleural spaces: Unremarkable. No pleural effusion. No pneumothorax. Heart/Mediastinum: Unremarkable. No cardiomegaly. Bones/joints: Lower thoracic pedicle screw fusion. Thoracic spondylosis is present. IMPRESSION: No acute process identified.
--- NOTE | 2025-04-08 14:13 | ECG_ITS ---
APPROVED REPORT Exam: Resting ECG HR:82 bpm ECG Measurements Heart Rate 82 AXES DC 208 P 7 QRSd 94 QRS 57 QT 390 T 15 QTc 429 Conclusion SINUS RHYTHM LOW QRS VOLTAGE IN PRECORDIAL LEADS [QRS DEFLECTION < 1.0 mV IN CHEST LEADS] NONSPECIFIC T-WAVE ABNORMALITY BORDERLINE ECG Electronically signed by : YVETTE RIVERA, 04/10/2025 09:30:26
--- NOTE | 2025-04-08 14:14 | [facility].EDCP ---
Discharge Plan Disposition Patient Disposition: Home, Self-Care Prescriptions Prescriptions: No Action gabapentin 400 mg capsule 400 mg PO HS Qty: 30 2RF oxycodone-acetaminophen 10-325 mg tablet 1 tab PO 5XDAY Qty: 150 0RF trazodone 50 mg tablet 50 mg PO DAILY flecainide 50 mg tablet 50 mg PO DAILY metoprolol tartrate 50 mg tablet 50 mg PO DAILY omeprazole 20 mg capsule,delayed release(DR/EC) 20 mg PO DAILY allopurinol 300 mg tablet 300 mg PO DAILY hydrochlorothiazide 25 mg tablet 25 mg PO DAILY ergocalciferol (vitamin D2) 1,250 mcg (50,000 unit) capsule 1,250 mcg PO WEEKLY loratadine 10 mg tablet 10 mg PO DAILY ezetimibe 10 mg tablet 10 mg PO DAILY dapagliflozin propanediol [Farxiga] 10 mg tablet 10 mg PO DAILY ibuprofen 800 mg tablet 800 mg PO TID PRN (Reason: pain) 7 Days Qty: 20 0RF iimbgsilnsmxeac-oqlpxwnsp-[place] 2-30-10 mg/5 mL syrup 5 ml PO Q6H PRN (Reason: cold symptoms) 7 Days Qty: 118 0RF ondansetron 4 mg tablet,disintegrating 4 mg PO Q6H PRN (Reason: nausea and vomiting) 5 Days Qty: 20 0RF Referrals Follow up/Referrals: Juana Bailey APRN [Primary Care Provider, Medical] - See instructions Activity Restrictions/Add. Instructions Additional Instructions/Restrictions: You were seen in the emergency room today for flulike symptoms. Although your flu and COVID test were negative, you still could have either 1 of these and/or another viral symptom. You do have a nodule on your chest x-ray, you should follow-up with your primary care provider for this. Clinical Impressions Clinical Impression: Viral syndrome, Nodule of right lung Stand Alone Forms Stand Alone Forms: Work/School Release Instructions Patient Instructions: DI for Viral Syndrome Print Language Print Language: Latvian Discharge ED Provider: Ga Vernon HPI <Radha Gonzalez APRN - Last Filed: 04/08/25 15:14> General Chief Complaint: Upper Respiratory Infection Stated Complaint: Headache, Chest Congestion, SOA, Cough Time Seen by Provider: 04/08/25 14:04 History of Present Illness HPI narrative: Jane Madden is a 54-year-old female who presents emergency room today with complaints of flulike symptoms, headache. 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 States she began having some sinus congestion, mild chest pain with inspiration, headache, and generalized malaise and fatigue that ulcerated yesterday. Patient states she continues to feel unwell today. Subjective fever with chills and bodyaches noted. She has no chest pain at rest. States it is only has chest discomfort when she takes in a deep breath. Is on aspirin daily. Reporting a cough, nonproductive. No prior history of COPD/lung disease. No stents in her heart, does take blood pressure medications. No other blood thinners. No other complaints at this time. Related Data Home Medications ?Medication ?Instructions ?Recorded ?Confirmed allopurinol 300 mg tablet 300 mg PO DAILY 01/28/24 04/01/25 dapagliflozin propanediol 10 mg 10 mg PO DAILY 01/28/24 04/01/25 tablet (Farxiga) ergocalciferol (vitamin D2) 1,250 1,250 mcg PO WEEKLY 01/28/24 04/01/25 mcg (50,000 unit) capsule ezetimibe 10 mg tablet 10 mg PO DAILY 01/28/24 04/01/25 flecainide 50 mg tablet 50 mg PO DAILY 01/28/24 04/01/25 hydrochlorothiazide 25 mg tablet 25 mg PO DAILY 01/28/24 04/01/25 loratadine 10 mg tablet 10 mg PO DAILY 01/28/24 04/01/25 metoprolol tartrate 50 mg tablet 50 mg PO DAILY 01/28/24 04/01/25 omeprazole 20 mg capsule,delayed 20 mg PO DAILY 01/28/24 04/01/25 release trazodone 50 mg tablet 50 mg PO DAILY 01/28/24 04/01/25 Previous Rx's ?Medication ?Instructions ?Recorded wwjdnhddxpapxqa-obcidfnnbsaebiv-DV 5 ml PO Q6H PRN cold symptoms 7 06/18/24 2 mg-30 mg-10 mg/5 mL oral syrup days #118 mL ibuprofen 800 mg tablet 800 mg PO TID PRN pain 7 days #20 06/18/24 tabs ondansetron 4 mg disintegrating 4 mg PO Q6H PRN nausea and 03/06/25 tablet vomiting 5 days #20 tabs gabapentin 400 mg capsule 400 mg PO HS #30 caps 02/01/25 oxycodone-acetaminophen 10 mg-325 1 tab PO 5XDAY #150 tabs 04/01/25 mg tablet Allergies Allergy/AdvReac Type Severity Reaction Status Date / Time No Known Allergies Allergy Verified 04/01/25 09:41 [facility] <Radha Gonzalez APRN - Last Filed: 04/08/25 15:14> [facility] Disclaimer: The information contained in this section may have been updated after the patient was seen, as this information can be updated by other users. 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 History of back pain Sleep apnea Hyperlipidemia Hypertension Atrial fibrillation Family History Other Family history of cancer Family history of diabetes mellitus type II Family history of myocardial infarction Social History Smoking Status: Current every day smoker tobacco type: smokeless tobacco second hand exposure: No alcohol intake: never substance use type: denies use current occupational status: other Travel in the last 8 weeks?: None household members: spouse housing: house current occupational exposures/hazards: No caffeine: Yes Have you lived/traveled outside [place] in past 30 days?: No Contact w/someone who lives/traveled outside [place] past 30 days?: No Exposure to someone with infectious disease in past 14 days?: No Do you have a fever (greater than 100.4 F or 38 C)?: No Have you tested positive for COVID-19?: No Exposed to someone with COVID-19 in past 14 days?: No Do you have a sore throat?: No Do you have a cough?: No Do you have any weakness?: No Do you have any diarrhea?: No Are you experiencing any unusual bleeding?: No Do you have any muscle aches/pain?: No Do you have any abdominal pain?: No Are you experiencing loss of taste or smell?: No Other 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 Have you received the Flu Vaccine for this season: No Have you received the Pneumonia Vaccine: No <Radha Gonzalez APRN - Last Filed: 04/08/25 15:14> ROS Obtained: Yes All systems reviewed & no additional complaints except as documented Physical Exam <Radha Eppsalbaro [employer] - Last Filed: 04/08/25 15:14> General General appearance: alert and in no apparent distress Head Head exam: atraumatic and normocephalic Eye Eye exam: Present PERRL and EOMI Neck Neck exam: Present trachea midline Chest Chest inspection: Present symmetric chest wall rise Respiratory Respiratory exam: Present normal lung sounds bilaterally Cardiovascular Cardiovascular exam: Present regular rate and normal rhythm Abdominal Exam Abdominal exam: Present soft and normal bowel sounds; Absent tenderness Extremities Exam Extremities exam: Present normal inspection and full ROM Neurological Exam Neurological exam: Present alert and oriented X3 Skin Skin exam: Present warm, dry and intact HEART Score <Radha Carlos [employer] - Last Filed: 04/08/25 15:14> HEART Score HEART Score assessment performed?: No Critical Care <Radha Carlos [employer] - Last Filed: 04/08/25 15:14> Critical Care Time Critical Care Time: No Medical Decision Making <Radha Gonzalez, [employer] - Last Filed: 04/08/25 15:14> Vital Signs Vital Signs: 04/08/25 14:06 04/08/25 14:55 Temperature 98.1 F Temperature Source Oral Pulse Rate 83 Pulse Rate [Right Radial] 70 Respiratory Rate 15 Blood Pressure 105/64 L Blood Pressure [Right Arm] 115/70 Blood Pressure Mean [Right Arm] 85 Blood Pressure Source [Right Arm] Automatic Cuff Blood Pressure Position [Right Arm] Sitting 02 Sat by Pulse Oximetry 98 100 Oxygen Delivery Method Room Air Lab Data Labs: Lab Results 04/08/25 14:25: WBC 9.4, RBC 3.64 L, Hgb 12.0 L, Hct 34.8 L, MCV 95.6, MCH 33.0 H, MCHC 34.5, RDW 13.1, Plt Count 202, MPV 10.7 H, Neut % (Auto) 62.9, Lymph % (Auto) 22.0, Griggs % (Auto) 7.9, Eos % (Auto) 6.4, Baso % (Auto) 0.6, Neut # (Auto) 5.9, Lymph # (Auto) 2.1, Griggs # (Auto) 0.7, Eos # (Auto) 0.6 H, Baso # (Auto) 0.1, Sodium 141, Potassium 3.5, Chloride 106, Carbon Dioxide 25, Anion Gap 13.5, BUN 21 H, Creatinine 0.80, Estimated Creat Clear 109, Estimated GFR 74, Est GFR ( Amer) 90, Glucose 116 H, Calcium 10.1, Total Bilirubin 0.5, AST 30, ALT 22, Alkaline Phosphatase 92, Troponin I < 0.01, Total Protein 7.1, Albumin 4.3, Globulin 2.8, Albumin/Globulin Ratio 1.5, SARS-CoV-2 (PCR) Not detected, Influenza A Untype (PCR) Not detected, Influenza Type B (PCR) Not detected 04/08/25 14:25 04/08/25 14:25 Response Orders (Tests/Meds): ORDERS Category Date Time Status Chest XR 2 view (NOT portable) [XR chest 2V] Stat Exams 04/08/25 14:11 Completed CBC w/Auto Diff [Complete Blood Count Auto Diff] Stat Lab 04/08/25 14:25 Completed CMP [Comprehensive Metabolic Panel] Stat Lab 04/08/25 14:25 Completed HIV Combo Stat Lab 04/08/25 14:25 Received Hepatitis C Ab Qual. W/ RFX Stat Lab 04/08/25 14:25 Received Rapid PCR Covid and Flu A/B Stat Lab 04/08/25 14:25 Completed Trop I [Troponin I] Stat Lab 04/08/25 14:25 Completed Troponin I Q3H Lab 04/08/25 17:15 Ordered Troponin I Q3H Lab 04/08/25 20:15 Ordered ECG Request Stat Y 04/08/25 14:13 Ordered MDM Narrative Medical Decision Narrative: In summary patient is an 54-year-old female who presents emergency department for evaluation of flulike symptoms. Patient complains of some mild shortness of breath, occasional pain with inspiration chest. Patient having no chest pain at rest. No cardiac history in the past. No productive cough, intermittent nonproductive cough noted. Has been around multiple sick contacts at work. Complaining of generalized malaise and fatigue, subjective fever noted. Patient is hemodynamically stable, patient sinus rhythm on the monitor, heart rate in the 70s, SpO2 98% on room air, normotensive blood pressure upon arrival, afebrile. Unremarkable nonfocal physical exam. Differential diagnosis includes influenza, COVID, pulmonary embolus, pneumonia. Initial workup will be conducted with hematologic labs, two-view chest x-ray, respiratory swabs. Initial workup reviewed by me hematologic labs essentially unremarkable. H&H a bit low at 12 and 34 which is her baseline. Troponin was negative. Patient negative for flu and COVID. Chest x-ray unremarkable, did show a nodule on the right upper lobe. EKG without ST elevation. I did offer the patient additional testing to rule out DVT or PE to include a D-dimer. Also discussed ordering a CT of the chest which patient would prefer not to have as well. Patient reports that she wishes to not wait for this test, has no history of DVT or PE, and knows that she has been around sick contacts at work which she has just attributing the symptoms as flu or COVID or other viral type illness. Upon repeat evaluation patient continues to be chest pain-free, not complaining of any shortness of breath at this time.. Given this patient appropriate for discharge. She will be given a work note to be off work tomorrow, okay to return to work on Saturday. I told the patient she had a nodule on her lung, she needs a follow-up with her primary care provider over this. <Ga Vernon MD - Last Filed: 04/08/25 15:17> [facility] Inquiry Pt receiving controlled substance: No Vital Signs Vital Signs: 04/08/25 14:06 04/08/25 14:55 Temperature 98.1 F Temperature Source Oral Pulse Rate 83 Pulse Rate [Right Radial] 70 Respiratory Rate 15 Blood Pressure 105/64 L Blood Pressure [Right Arm] 115/70 Blood Pressure Mean [Right Arm] 85 Blood Pressure Source [Right Arm] Automatic Cuff Blood Pressure Position [Right Arm] Sitting 02 Sat by Pulse Oximetry 98 100 Oxygen Delivery Method Room Air Lab Data Labs: Lab Results 04/08/25 14:25: WBC 9.4, RBC 3.64 L, Hgb 12.0 L, Hct 34.8 L, MCV 95.6, MCH 33.0 H, MCHC 34.5, RDW 13.1, Plt Count 202, MPV 10.7 H, Neut % (Auto) 62.9, Lymph % (Auto) 22.0, Griggs % (Auto) 7.9, Eos % (Auto) 6.4, Baso % (Auto) 0.6, Neut # (Auto) 5.9, Lymph # (Auto) 2.1, Griggs # (Auto) 0.7, Eos # (Auto) 0.6 H, Baso # (Auto) 0.1, Sodium 141, Potassium 3.5, Chloride 106, Carbon Dioxide 25, Anion Gap 13.5, BUN 21 H, Creatinine 0.80, Estimated Creat Clear 109, Estimated GFR 74, Est GFR ( Amer) 90, Glucose 116 H, Calcium 10.1, Total Bilirubin 0.5, AST 30, ALT 22, Alkaline Phosphatase 92, Troponin I < 0.01, Total Protein 7.1, Albumin 4.3, Globulin 2.8, Albumin/Globulin Ratio 1.5, SARS-CoV-2 (PCR) Not detected, Influenza A Untype (PCR) Not detected, Influenza Type B (PCR) Not detected Response Orders (Tests/Meds): ORDERS Category Date Time Status Chest XR 2 view (NOT portable) [XR chest 2V] Stat Exams 04/08/25 14:11 Completed CBC w/Auto Diff [Complete Blood Count Auto Diff] Stat Lab 04/08/25 14:25 Completed CMP [Comprehensive Metabolic Panel] Stat Lab 04/08/25 14:25 Completed HIV Combo Stat Lab 04/08/25 14:25 Received Hepatitis C Ab Qual. W/ RFX Stat Lab 04/08/25 14:25 Received Rapid PCR Covid and Flu A/B Stat Lab 04/08/25 14:25 Completed Trop I [Troponin I] Stat Lab 04/08/25 14:25 Completed Troponin I Q3H Lab 04/08/25 17:15 Ordered Troponin I Q3H Lab 04/08/25 20:15 Ordered ECG Request Stat Y 04/08/25 14:13 Ordered ECG Data Tracing #1: ECG Narrative: Independently interpreted by me rate is 82, rhythm is regular, axis is normal, no ST elevation in anatomical contiguous leads, QTc 429. MDM Narrative Medical Decision Narrative: In summary patient is an 54-year-old female who presents emergency department for evaluation of flulike symptoms. Patient complains of some mild shortness of breath, occasional pain with inspiration chest. Patient having no chest pain at rest. No cardiac history in the past. No productive cough, intermittent nonproductive cough noted. Has been around multiple sick contacts at work. Complaining of generalized malaise and fatigue, subjective fever noted. Patient is hemodynamically stable, patient sinus rhythm on the monitor, heart rate in the 70s, SpO2 98% on room air, normotensive blood pressure upon arrival, afebrile. Unremarkable nonfocal physical exam. Differential diagnosis includes influenza, COVID, pulmonary embolus, pneumonia. Initial workup will be conducted with hematologic labs, two-view chest x-ray, respiratory swabs. Initial workup reviewed by me hematologic labs essentially unremarkable. H&H a bit low at 12 and 34 which is her baseline. Troponin was negative. Patient negative for flu and COVID. Chest x-ray unremarkable, did show a nodule on the right upper lobe. EKG without ST elevation. I did offer the patient additional testing to rule out DVT or PE to include a D-dimer. Also discussed ordering a CT of the chest which patient would prefer not to have as well. Patient reports that she wishes to not wait for this test, has no history of DVT or PE, and knows that she has been around sick contacts at work which she has just attributing the symptoms as flu or COVID or other viral type illness. Upon repeat evaluation patient continues to be chest pain-free, not complaining of any shortness of breath at this time.. Given this patient appropriate for discharge. She will be given a work note to be off work tomorrow, okay to return to work on Saturday. I told the patient she had a nodule on her lung, she needs a follow-up with her primary care provider over this. Ga Vernon MD: I was consulted by the SHAHRAM, and we discussed the complexity of the problems being addressed. I approved the treatment and management plan for this patient's care in the emergency department, thus performing a substantive portion of the medical decision making.
[2025-04-08 14:33] LABS: Coronavirus 19, PCR Not Detected (NotDetected); Influenza A, PCR Not Detected (NotDetected); Influenza B, PCR Not Detected (NotDetected)
[2025-04-08 14:34] LABS: Hematocrit 34.8 % (37.0-47.0); Hemoglobin 12.0 g/dL (12.2-16.2); Immature Granulocytes % 0.2 %; Mean Corpuscular HGB Conc 34.5 g/dL (31.8-35.4); Mean Corpuscular Hemoglobin 33.0 pg (27.0-31.2); Mean Corpuscular Volume 95.6 fl (81-99); Nucleated Red Blood Cells % 0 %; Platelet Count 202 K/mm3 (142-424); Red Blood Count 3.64 M/mm3 (4.20-5.40); Red Cell Distribution Width-SD 45.6 fL; White Blood Count 9.4 K/mm3 (4.8-10.8)
[2025-04-08 14:41] LABS: Albumin Level 4.3 g/dl (3.5-5.0); Chloride 106 mmol/L (98-107); Sodium 141 mmol/L (136-145)
[2025-04-08 14:42] LABS: Potassium 3.5 mmoL/L (3.5-5.1)
[2025-04-08 14:44] LABS: Alanine Aminotransferase 22 U/L (12-78); Anion Gap 13.5 mEq/L (5-15); Aspartate Amino Transferase 30 U/L (14-36); Blood Urea Nitrogen 21 mg/dl (7-17); Carbon Dioxide 25 mmol/L (22.0-30.0); Creatinine Clearance Estimated 109 mL/min (50-200); Creatinine,Serum 0.80 mg/dl (0.52-1.04); Estimated Glomerular Filt Rate 74 ml/min (>60); GFR (African American) 90 ML/MIN (>60)
[2025-04-08 14:45] LABS: Albumin/Globulin Ratio 1.5 (1.1-1.8); Alkaline Phosphatase 92 U/L (38-126); Bilirubin,Total 0.5 mg/dl (0.2-1.3); Calcium 10.1 mg/dl (8.4-10.2); Globulin 2.8 g/dL (1.3-3.2); Glucose 116 mg/dl (74-100); Total Protein,Serum 7.1 g/dl (6.3-8.2)
[2025-04-08 14:55] VITALS: BP 105/64; PULSE 83; O2SAT 100
[2025-04-08 15:00] LABS: Troponin I < 0.01 ng/ml (0.00-0.034)
[2025-04-08 15:24] VITALS: BP 105/64; PULSE 83; RESP 16; TEMP 36.7; O2SAT 100
[2025-04-08 15:45] LABS: Hepatitis C Ab Qual. W/ RFX NEGATIVE (Negative)
== END 2025-04-08 15:26 | disposition home or self-care (01) ==
PROVIDERS: Nurse Practitioner Acute Care; Emergency Provider Emergency Medicine; PCP Nurse Practitioner
DX: R07.1 Chest pain on breathing (principal); R91.1 Solitary pulmonary nodule; R51.9 Headache, unspecified; B34.9 Viral infection, unspecified; F17.210 Nicotine dependence, cigarettes, uncomplicated
CPT/HCPCS: 71046; 80053; 84484; 85025; 86803; 87389; 87636; 93005; 99284